=== PATIENT | female | born 1950 | race Caucasian/White ===

== ENCOUNTER 2016-08-29 10:31 | Inpatient (IN) | payer MEDICARE, MEDICAID ==
[~2016-08-29] VITALS: Ht 157.5 cm; Wt 73.7 kg
[2016-08-29] MEDS: BETAMETHASONE DIP 0.05% OINT 15 GM TOP SCH ×2 (09:00→20:42)
[~2016-08-29 10:31] MED LIST: /CIPR75TA OR; /ESOM40CA OR; /THIA10TA OR; /WARF25TA; ACET65TA; EFFE75CA75 PO; FOLI1TAB OR; MAGN500T2 OR; NEUR300C OR; NICO21DI4; NICO21DI4 TD; No Historical Meds; PERC5TAB8; PERC7.5T8 OR; VIT D 2000 PO; WARF-20 PO
[2016-08-29 11:23] LABS: BASO % 0.4 % (0.0-1.0); EOS # 0.1 K/mm3 (0.0-0.50); EOS % 1.4 % (0.0-3.0); LARGE UNSTAINED CELL # 0.1 K/mm3 (0.0-0.4); LARGE UNSTAINED CELL % 1.4 % (0.0-4.0); LYMPH # 0.9 K/mm3 (1.5-4.5); LYMPH % 16.5 % (24.0-44.0); MEAN CORPUSCULAR HEMOGLOBIN 34.2 pg (27.0-33.0); MEAN CORPUSCULAR HGB CONC 34.3 g/dl (32.0-36.5); MEAN CORPUSCULAR VOLUME 99.7 fl (80.0-96.0); MONO # 0.4 K/mm3 (0.0-0.8); MONO % 6.3 % (0.0-5.0); NEUTROPHILS # 4.2 K/mm3 (1.8-7.7); NEUTROPHILS % 73.9 % (36.0-66.0); PLATELET COUNT, AUTOMATED 305 k/mm3 (150-450); RED CELL DISTRIBUTION WIDTH 15.6 % (11.5-14.5); WHITE BLOOD COUNT 5.7 K/mm3 (4.0-10.0)
--- NOTE | 2016-08-29 11:23 | REP ---
Clinical: Acute cough . Comparison: 08/23/2015 . Technique: PA and lateral. Findings: The mediastinum and cardiac silhouette are normal. The lung lanier demonstrate chronic changes without acute consolidation, effusion, or pneumothorax. Subtle basilar atelectasis cannot be excluded. The skeletal structures are intact and normal. Impression: No focal consolidation. Subtle basilar atelectasis cannot be excluded. Signed by Carlos Hendricks MD 08/29/2016 11:14 A
[2016-08-29 11:42] LABS: INR 1.09
[2016-08-29 11:54] LABS: ALBUMIN 2.5 GM/DL (3.2-5.2); ALBUMIN/GLOBULIN RATIO 0.64 (1.00-1.93); ALKALINE PHOSPHATASE 190 U/L (45-117); ALT/SGPT 12 U/L (12-78); ANION GAP 7 MEQ/L (8-16); AST/SGOT 15 U/L (15-37); BILIRUBIN,DIRECT 0.4 MG/DL (0.0-0.2); BLOOD UREA NITROGEN 4 MG/DL (7-18); CALCIUM LEVEL 8.2 MG/DL (8.8-10.2); CARBON DIOXIDE LEVEL 32 MEQ/L (21-32); CHLORIDE LEVEL 100 MEQ/L (98-107); CREATININE FOR GFR 0.61 MG/DL (0.55-1.02); GLOMERULAR FILTRATION RATE > 60.0 (>45); GLUCOSE, FASTING 94 MG/DL (80-110); POTASSIUM SERUM 3.6 MEQ/L (3.5-5.1); SODIUM LEVEL 139 MEQ/L (136-145); TOTAL PROTEIN 6.4 GM/DL (6.4-8.2)
--- NOTE | 2016-08-29 12:01 | REP ---
Clinical: Pain and swelling with erythema bilaterally. Technique: Muniz scale and color Doppler evaluation using linear high frequency transducer. Findings: Ultrasound examination of the right and left lower extremity deep venous structures from the common femoral vein to the popliteal vein demonstrates normal compressibility flow and wave patterns in response to respiration and augmentation. There is no evidence for deep venous thrombosis. Diffuse subcutaneous edema noted. Impression: Edema. No evidence for deep venous thrombosis. Signed by Carlos Hendricks MD 08/29/2016 11:53 A
[2016-08-29 12:07] LABS: ERYTHROCYTE SEDIMENTATION RATE 17 mm/hr (0-30)
[2016-08-29] MEDS ORDERED: ONDANSETRON 4MG/2ML VIAL (J2405) As Ordered ONE (12:52)
[2016-08-29] MEDS ORDERED: MORPHINE 2 MG/ML 1ML SYRINGE As Ordered ONE ×2 (12:53→14:17)
--- NOTE | 2016-08-29 13:02 | ECGEPIP ---
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
[2016-08-29] MEDS ORDERED: TYLE1TAB5 PO (13:44)
[2016-08-29] MEDS ORDERED: EUCERIN 120GM CREAM TOP PRN (13:45)
[2016-08-29] MEDS ORDERED: PERCOCET 5MG/325MG TAB As Ordered ONE (14:17)
[2016-08-29] MEDS ORDERED: hydroCHLOROthiazide 25 MG TAB As Ordered ONE (14:17)
[2016-08-29] MEDS ORDERED: amLODIPine 5 MG TAB As Ordered ONE (14:17)
[2016-08-29] MEDS ORDERED: VANCOMYCIN 1000 MG/20 ML VIAL (J3370) As Ordered ONE (14:17)
[2016-08-29] MEDS ORDERED: NITROGLYCERIN 0.4 MG SUBL TABLET SL PRN (15:15)
--- NOTE | 2016-08-29 15:17 | EDDOCDS ---
Physician Documentation [facility] Name: Renu Yan Age: 66 yrs Sex: Female : 1950 Arrival Date: 08/29/2016 Time: 10:31 Bed 14 Private MD: Disposition: 08/29/16 13:33 Hospitalization ordered by Vianey Swann for Inpatient Admission. Preliminary diagnosis is Cellulitis of right lower limb - associated with chronic changes - hyperkeratosis. - Bed requested for 4 [place]. - Status is Inpatient Admission. jo3 - Condition is Stable. - Problem is new. - Symptoms are unchanged. Historical: - Allergies: PENICILLINS; Aspirin; Iron CR; - Home Meds: 1. none - PMHx: Hypercholesterolemia; Hypertension; DVT; - PSHx: ; Hip Arthroplasty, Left; Hysterectomy; - Social history: Smoking status: Patient uses tobacco products, light tobacco smoker. No barriers to communication noted, The patient speaks fluent Venezuelan, Speaks appropriately for age. - Family history: Not pertinent. - : The pt / caregiver states he / she is not on anticoagulants. Home medication list is obtained from the patient. - Exposure Risk Screening:: None identified. Vital Signs: 08/29 10:53 BP 168 / 75 (auto/); Pulse 68; Resp 16; Temp 97.8(O); Pulse Ox 97% ; jo3 11:23 BP 199 / 94 (auto/); jo3 11:23 Pulse 126 MON; Pulse Ox 95% ; jo3 11:53 BP 186 / 88 (auto/); jo3 11:53 Pulse 100 MON; Pulse Ox 97% ; jo3 12:23 BP 164 / 75 (auto/); jo3 12:23 Pulse 86 MON; Pulse Ox 96% ; jo3 12:53 BP 180 / 79 (auto/); jo3 12:53 Pulse 100 MON; Pulse Ox 97% ; jo3 13:15 Pain 4/10; jo3 13:23 BP 155 / 73 (auto/); jo3 13:23 Pulse 94 MON; Pulse Ox 99% ; jo3 15:00 BP 158 / 89; Pulse 82; Resp 16; Temp 97.9(TE); Pulse Ox 96% on R/A; jo3 MDM: 10:45 -Blood Culture (Adults Only), peripheral from different site, or from device/port/PICC sd1 etc. if present ordered. 10:45 Passenger Car Upholsterer Apprentice/Pulse Ox/q 15 min VS ordered. sd1 10:45 IV Saline Lock ordered. sd1 10:45 Oxygen at 4L/Min NC or Home dosage ordered. sd1 10:45 Rhythm Strip to chart ordered. sd1 10:45 B-Type Natiuretic Peptide Ordered. EDMS 10:45 Basic Metabolic Profile Ordered. EDMS 10:45 CBC with Diff Ordered. EDMS 10:45 -Blood Culture Ordered. EDMS 10:46 Chest, 2 View (pa\E\lat) Ordered. EDMS 10:46 ECG WITH READING ER PHYS+CARDIAG ordered. EDMS 10:47 Lactic Acid (Muniz tube on ice) Ordered. EDMS 10:47 PT/INR Ordered. EDMS 10:47 US Lower Extremities Bilateral R/O DVT Ordered. EDMS 10:54 LIVER PROFILE Ordered. EDMS 10:58 -Blood Culture (Adults Only), peripheral from different site, or from device/port/PICC lbd etc. if present complete. 11:00 BLOOD CULTURES Ordered. EDMS 11:10 ERYTHROCYTE SEDIMENTATION RATE Ordered. EDMS 11:10 C REACTIVE PROTEIN QUANTITATIV Ordered. EDMS 11:20 Financial registration complete. mm15 11:32 CBC with Diff Reviewed. sd1 11:34 [facility] Payment Agreement was scanned into Roamer and attached to record. mm15 11:43 PT/INR Reviewed. sd1 12:19 Basic Metabolic Profile Reviewed. sd1 12:19 CBC with Diff Reviewed. sd1 12:19 LIVER PROFILE Reviewed. sd1 12:19 C REACTIVE PROTEIN QUANTITATIV Reviewed. sd1 12:19 Lactic Acid (Muniz tube on ice) Reviewed. sd1 12:19 ERYTHROCYTE SEDIMENTATION RATE Reviewed. sd1 12:19 Chest, 2 View (pa\E\lat) Reviewed. sd1 12:19 US Lower Extremities Bilateral R/O DVT Reviewed. sd1 12:20 Misc. Nursing Order ordered. sd1 12:58 Ondansetron 4 mg IVP once ordered. jo3 12:59 morphine 2 mg IVP once ordered. jo3 13:35 Admission / Observation Status ordered. EDMS 13:36 2 GRAM SODIUM DIET ordered. EDMS 13:37 MRSA SCREEN Ordered. EDMS 13:38 PHYSICAL THERAPY EVAL & TREAT ordered. EDMS 13:40 PCR was scanned into Roamer and attached to record. gb 13:47 Written Provider Order was scanned into [facility] and attached to record. lbd 14:03 Written Provider Order was scanned into [facility] and attached to record. lbd 14:10 vancomycin 1 grams IVPB once over 60 mins; dilute in 250mL of NS or D5W ordered. jo3 14:10 morphine 2 mg IVP once ordered. jo3 14:10 oxyCODONE-acetaminophen 5 mg-325 mg 1 tabs PO once ordered. jo3 14:10 Hydrochlorothiazide 25 mg PO once ordered. jo3 14:10 amLODIPine 2.5 mg PO once ordered. jo3 15:01 CARDIAC MARKER PANEL Ordered. EDMS 15:02 ECHOCARD,DOPPLER/COLOR FLOW ordered. EDMS Administered Medications: 12:59 Drug: Ondansetron 4 mg [ondansetron HCl 2 mg/mL intravenous solution (2 mL)] Route: jo3 IVP; Site: left antecubital; 12:59 Drug: morphine 2 mg [morphine 2 mg/mL intravenous cartridge (1 mL)] Route: IVP; Site: jo3 left antecubital; 13:15 Follow up: Pain 4/10 Adult jo3 14:30 Drug: oxyCODONE-acetaminophen 1 tabs [oxycodone-acetaminophen 5 mg-325 mg tablet (1 jo3 tabs)] Route: PO; 14:30 Drug: Hydrochlorothiazide 25 mg [hydrochlorothiazide 25 mg tablet (1 tabs)] Route: PO; jo3 14:30 Drug: amLODIPine 2.5 mg Route: PO; jo3 14:32 Drug: morphine 2 mg [morphine 2 mg/mL intravenous cartridge (1 mL)] Route: IVP; Site: jo3 left antecubital; 14:34 Drug: vancomycin 1 grams [vancomycin 1,000 mg intravenous injection] Route: IVPB; jo3 Infused Over: 60 mins; Site: left antecubital; Signatures: Dispatcher MedHost EDMS Mya Morrell MD MD sd1 Kaitlin Ward, Bunker Worker Unit lbd Jo-Ann Ledezma, Reg Reg gb Roxanne Miguel RN RN jo3 Nevaeh Hubbard mm15 The chart was reviewed and I authenticate all verbal orders and agree with the evaluation and treatment provided.Corrections: (The following items were deleted from the chart) 10:54 10:47 LIVER PROFILE+LAB ordered. EDMS EDMS 11:10 10:47 ERYTHROCYTE SEDIMENTATION RATE+LAB ordered. EDMS EDMS 11:10 10:47 C REACTIVE PROTEIN QUANTITATIV+LAB ordered. EDMS EDMS 13:37 13:37 BASIC METABOLIC PROFILE ordered. EDMS EDMS 13:37 13:37 BASIC METABOLIC PROFILE ordered. EDMS EDMS 13:37 13:37 C REACTIVE PROTEIN QUANTITATIV ordered. EDMS EDMS 13:37 13:37 C REACTIVE PROTEIN QUANTITATIV ordered. EDMS EDMS 13:37 13:37 CBC WITH DIFFERENTIAL ordered. EDMS EDMS 13:37 13:37 CBC WITH DIFFERENTIAL ordered. EDMS EDMS 13:37 13:37 ERYTHROCYTE SEDIMENTATION RATE ordered. EDMS EDMS 13:37 13:37 ERYTHROCYTE SEDIMENTATION RATE ordered. EDMS EDMS 15:14 15:01 CARDIAC MARKER PANEL ordered. EDMS EDMS Attachments: 11:34 [facility] Payment Agreement mm15 13:47 Written Provider Order lbd 14:03 Written Provider Order lbd MTDD
--- NOTE | 2016-08-29 15:17 | EDDOCDS ---
Nurse's Notes [facility] Name: Justino Watt Age: 66 yrs Sex: Female : 1950 Arrival Date: 08/29/2016 Time: 10:31 Bed 14 Private MD: Diagnosis: Cellulitis of right lower limb-associated with chronic changes - hyperkeratosis Presentation: 08/29 10:35 Presenting complaint: EMS states: Leg pain x 3 weeks. Multiple ulcers to left leg and jo3 foot and right foot. Also reports some sciatica type pain. 10:36 Suicide/Homicide risk assessment- the patient denies having any suicidal and/or jo3 homicidal ideations and does not present with any other emotional, behavioral or mental health complaints. Status: Patient is not a manager creative services or dependent. Transition of care: patient was not received from another setting of care. 10:36 Method Of Arrival: Ambulance jo3 11:08 Adult Sepsis Screening: The patient does not have new or worsening altered mentation. jo3 Patient's respiratory rate is less than 22. Systolic blood pressure is less than or equal to 100 (1 point). Patient has a qSOFA score of 0- Negative Sepsis Screen. 11:08 Acuity: JOSEPH Level 3 jo3 Triage Assessment: 11:13 General: Appears in no apparent distress, Behavior is appropriate for age, cooperative. jo3 Respiratory: Airway is patent Respiratory effort is even, unlabored. Historical: - Allergies: PENICILLINS; Aspirin; Iron CR; - Home Meds: 1. none - PMHx: Hypercholesterolemia; Hypertension; DVT; - PSHx: ; Hip Arthroplasty, Left; Hysterectomy; - Social history: Smoking status: Patient uses tobacco products, light tobacco smoker. No barriers to communication noted, The patient speaks fluent French, Speaks appropriately for age. - Family history: Not pertinent. - : The pt / caregiver states he / she is not on anticoagulants. Home medication list is obtained from the patient. - Exposure Risk Screening:: None identified. Screenin:17 Screening information is obtained from the patient. Fall risk: No risks identified. jo3 Assistance ADL's: requires no assistance with activities of daily living. Abuse/DV Screen: The patient / caregiver reports he/she is: not in a situation that causes fear, pain or injury. Nutritional screening: No deficits noted. Advance Directives: There is no active DNR order. home support is adequate. Assessment: 11:17 General: Appears in no apparent distress, comfortable, Behavior is appropriate for age, jo3 cooperative, pleasant. General: Pt has thick brown growth which is circumferential to left lower leg. Smell noted as musty. Lower right leg has patchy rash which looks similar in places to left lower leg. skin is reddened at right lower leg . Neurological: No deficits noted. Level of Consciousness is awake, alert, Oriented to person, place, time. Cardiovascular: No deficits noted. Respiratory: Airway is patent Respiratory effort is even, unlabored. Derm: Skin is pink, warm & dry. 12:20 Reassessment: Patient appears in no apparent distress at this time. Pt reports some jo3 pain to back. Positioned for comfort. will report to provider . 13:00 Reassessment: Patient appears in no apparent distress at this time. Medicated for pain jo3 at this time. Awaiting admission to medical floor. Aware of plan of care. Will monitor for medication effectiveness . 13:49 Reassessment: Patient states feeling better. Patient states symptoms have improved. jo3 Reports that pain is much improved at this time. Resting on stretcher quietly. awaiting admission at this time. Aware of plan of care . General: Appears in no apparent distress, comfortable, Behavior is appropriate for age, cooperative, pleasant. 14:45 General: Appears in no apparent distress, comfortable, Behavior is appropriate for age, jo3 cooperative, pleasant. General: Awaiting admission to medical floor. Eating lunch at this time. medicated for pain again at this tabitha. will monitor for effectiveness. Neurological: No deficits noted. Respiratory: Airway is patent Respiratory effort is even, unlabored. 15:13 Reassessment: Patient appears in no apparent distress at this time. Patient states jo3 feeling better. Patient states symptoms have improved. Admitted at this time . Vital Signs: 10:53 BP 168 / 75 (auto/); Pulse 68; Resp 16; Temp 97.8(O); Pulse Ox 97% ; jo3 11:23 BP 199 / 94 (auto/); jo3 11:23 Pulse 126 MON; Pulse Ox 95% ; jo3 11:53 BP 186 / 88 (auto/); jo3 11:53 Pulse 100 MON; Pulse Ox 97% ; jo3 12:23 BP 164 / 75 (auto/); jo3 12:23 Pulse 86 MON; Pulse Ox 96% ; jo3 12:53 BP 180 / 79 (auto/); jo3 12:53 Pulse 100 MON; Pulse Ox 97% ; jo3 13:15 Pain 4/10; jo3 13:23 BP 155 / 73 (auto/); jo3 13:23 Pulse 94 MON; Pulse Ox 99% ; jo3 15:00 BP 158 / 89; Pulse 82; Resp 16; Temp 97.9(TE); Pulse Ox 96% on R/A; jo3 Vitals: 11:13 Log In Time N/A - ambulance arrival. jo3 ED Course: 10:32 Patient visited by Kaitlin Ward, Senior Marketing Engineer. lbd 10:32 Patient moved to Waiting lbd 10:33 Patient moved to 14 lbd 10:36 Mya Morrell MD is Attending Physician. sd1 10:36 Patient visited by Mya Morrell MD. sd1 11:09 Triage Initiated jo3 11:13 Patient moved to Ultrasound am10 11:17 The patient / caregiver is instructed regarding the plan of care and ED course. jo3 11:17 Inserted saline lock: 18 gauge in left antecubital area. Labs drawn. (by ED staff). jo3 Sent per order to lab. Labs/Blood culture drawn. 11:20 Patient visited by Roxanne Miguel RN. jo3 11:20 Patient visited by Roxanne Miguel,SAFIA. jo3 11:20 B-Type Natiuretic Peptide Sent. jo3 11:34 [facility] Payment Agreement was scanned into Pley and attached to record. mm15 11:50 Patient moved to 14 am10 12:10 Chest, 2 View (pa\\E\\lat) Returned. EDMS 12:11 US Lower Extremities Bilateral R/O DVT Returned. EDMS 12:27 Patient visited by Roxanne Miguel,SAFIA. jo3 12:31 Patient name changed from Justino\\S\\M\\S\\Watt\\S\\ to Justino\\S\\Rissa\\S\\Watt. EDMS 12:39 Patient visited by Nathalie Talbert PCA. jlf 12:39 Notified attending ED physician of ambulated pt with walker, patient took a few steps jlf and stated "it hurts too much" and returned to the stretcher. Patient stating "her legs hurt", and asking for pain meds. RN Negrita Miguel notified as well.. 12:41 Patient visited by Nathalie Talbert PCA. jlf 13:33 Vianey Swann is Hospitalizing Provider. sd1 13:40 PCR was scanned into MED[employer] and attached to record. gb 13:43 EKG-ADULT Returned. EDMS 13:47 Written Provider Order was scanned into MEDHOST and attached to record. lbd 13:53 Patient visited by Roxanne Miguel RN. jo3 14:03 Written Provider Order was scanned into [employer] and attached to record. lbd 15:00 No procedures done that require assistance. jo3 Administered Medications: 12:59 Drug: Ondansetron 4 mg [ondansetron HCl 2 mg/mL intravenous solution (2 mL)] Route: jo3 IVP; Site: left antecubital; 12:59 Drug: morphine 2 mg [morphine 2 mg/mL intravenous cartridge (1 mL)] Route: IVP; Site: jo3 left antecubital; 13:15 Follow up: Pain 4/10 Adult jo3 14:30 Drug: oxyCODONE-acetaminophen 1 tabs [oxycodone-acetaminophen 5 mg-325 mg tablet (1 jo3 tabs)] Route: PO; 14:30 Drug: Hydrochlorothiazide 25 mg [hydrochlorothiazide 25 mg tablet (1 tabs)] Route: PO; jo3 14:30 Drug: amLODIPine 2.5 mg Route: PO; jo3 14:32 Drug: morphine 2 mg [morphine 2 mg/mL intravenous cartridge (1 mL)] Route: IVP; Site: jo3 left antecubital; 14:34 Drug: vancomycin 1 grams [vancomycin 1,000 mg intravenous injection] Route: IVPB; jo3 Infused Over: 60 mins; Site: left antecubital; Order Results: Lab Order: B-Type Natiuretic Peptide; SPEC'M 08/29/16 11:01 Test: BRAIN NATRIURETIC PEPTIDE; Value: 56.2; Range: <100; Units: PG/ML; Status: F Lab Order: Basic Metabolic Profile; SPEC'M 08/29/16 11:01 Test: GLUCOSE, FASTING; Value: 94; Range: 80-110; Units: MG/DL; Status: F Test: BLOOD UREA NITROGEN; Value: 4; Range: 7-18; Abnormal: Below low normal; Units: MG/DL; Status: F Test: CREATININE FOR GFR; Value: 0.61; Range: 0.55-1.02; Units: MG/DL; Status: F Test: GLOMERULAR FILTRATION RATE; Value: > 60.0; Range: >45; Status: F Test: SODIUM LEVEL; Value: 139; Range: 136-145; Units: MEQ/L; Status: F Test: POTASSIUM SERUM; Value: 3.6; Range: 3.5-5.1; Units: MEQ/L; Status: F Test: CHLORIDE LEVEL; Value: 100; Range: 98-107; Units: MEQ/L; Status: F Test: CARBON DIOXIDE LEVEL; Value: 32; Range: 21-32; Units: MEQ/L; Status: F Test: ANION GAP; Value: 7; Range: 8-16; Abnormal: Below low normal; Units: MEQ/L; Status: F Test: CALCIUM LEVEL; Value: 8.2; Range: 8.8-10.2; Abnormal: Below low normal; Units: MG/DL; Status: F Test Note: ; Units are mL/min/1.73 m2 Chronic Kidney Disease Staging per NKF: Stage I & II GFR >=60 Normal to Mildly Decreased Stage III GFR 30-59 Moderately Decreased Stage IV GFR 15-29 Severely Decreased Stage V GFR <15 Very Little GFR Left ESRD GFR <15 on [facility] NAPRAPATHY Lab Order: CBC with Diff; SPEC'M 08/29/16 11:01 Test: WHITE BLOOD COUNT; Value: 5.7; Range: 4.0-10.0; Units: K/mm3; Status: F Test: RED BLOOD COUNT; Value: 3.73; Range: 4.00-5.40; Abnormal: Below low normal; Units: M/mm3; Status: F Test: HEMOGLOBIN; Value: 12.8; Range: 12.0-16.0; Units: g/dl; Status: F Test: HEMATOCRIT; Value: 37.2; Range: 36.0-47.0; Units: %; Status: F Test: MEAN CORPUSCULAR VOLUME; Value: 99.7; Range: 80.0-96.0; Abnormal: Above high normal; Units: fl; Status: F Test: MEAN CORPUSCULAR HEMOGLOBIN; Value: 34.2; Range: 27.0-33.0; Abnormal: Above high normal; Units: pg; Status: F Test: MEAN CORPUSCULAR HGB CONC; Value: 34.3; Range: 32.0-36.5; Units: g/dl; Status: F Test: RED CELL DISTRIBUTION WIDTH; Value: 15.6; Range: 11.5-14.5; Abnormal: Above high normal; Units: %; Status: F Test: PLATELET COUNT, AUTOMATED; Value: 305; Range: 150-450; Units: k/mm3; Status: F Test: NEUTROPHILS %; Value: 73.9; Range: 36.0-66.0; Abnormal: Above high normal; Units: %; Status: F Test: LYMPH %; Value: 16.5; Range: 24.0-44.0; Abnormal: Below low normal; Units: %; Status: F Test: MONO %; Value: 6.3; Range: 0.0-5.0; Abnormal: Above high normal; Units: %; Status: F Test: EOS %; Value: 1.4; Range: 0.0-3.0; Units: %; Status: F Test: BASO %; Value: 0.4; Range: 0.0-1.0; Units: %; Status: F Test: LARGE UNSTAINED CELL %; Value: 1.4; Range: 0.0-4.0; Units: %; Status: F Test: NEUTROPHILS #; Value: 4.2; Range: 1.8-7.7; Units: K/mm3; Status: F Test: LYMPH #; Value: 0.9; Range: 1.5-4.5; Abnormal: Below low normal; Units: K/mm3; Status: F Test: MONO #; Value: 0.4; Range: 0.0-0.8; Units: K/mm3; Status: F Test: EOS #; Value: 0.1; Range: 0.0-0.50; Units: K/mm3; Status: F Test: BASO #; Value: 0.0; Range: 0.0-0.2; Units: K/mm3; Status: F Test: LARGE UNSTAINED CELL #; Value: 0.1; Range: 0.0-0.4; Units: K/mm3; Status: F Lab Order: Lactic Acid (Muniz tube on ice); SPEC'M 08/29/16 11:01 Test: LACTIC ACID LEVEL, LACTATE; Value: 1.4; Range: 0.4-2.0; Units: MMOL/L; Status: F Lab Order: PT/INR; SPEC'M 08/29/16 11:01 Test: PROTHROMBIN TIME; Value: 14.2; Range: 12.3-14.5; Units: SECONDS; Status: F Test: INR; Value: 1.09; Status: F Test Note: ; THERAPUTIC HUMAN INR VALUES INDICATIONS NORMAL RANGES PROPHYLAXIS/TREATMENT OF: VENOUS THROMBOSIS 2.0-3.0 PULMONARY EMBOLISM 2.0-3.0 PREVENTION OF SYSTEMIC EMBOLISM FROM: TISSUE HEART VALVES 2.0-3.0 ACUTE MYOCARDIAL INFARCTION 2.0-3.0 VALVULAR HEART DISEASE 2.0-3.0 ATRIAL FIBRILLATION 2.0-3.0 MECHANICAL VALVES(HIGH RISK) 2.5-3.5 RECURRENT MYOCARDIAL INFARCTION 2.5-3.5 Lab Order: LIVER PROFILE; SPEC'M 08/29/16 11:01 Test: AST/SGOT; Value: 15; Range: 15-37; Units: U/L; Status: F Test: ALT/SGPT; Value: 12; Range: 12-78; Units: U/L; Status: F Test: ALKALINE PHOSPHATASE; Value: 190; Range: 45-117; Abnormal: Above high normal; Units: U/L; Status: F Test: BILIRUBIN,TOTAL; Value: 1.0; Range: 0.2-1.0; Units: MG/DL; Status: F Test: BILIRUBIN,DIRECT; Value: 0.4; Range: 0.0-0.2; Abnormal: Above high normal; Units: MG/DL; Status: F Test: TOTAL PROTEIN; Value: 6.4; Range: 6.4-8.2; Units: GM/DL; Status: F Test: ALBUMIN; Value: 2.5; Range: 3.2-5.2; Abnormal: Below low normal; Units: GM/DL; Status: F Test: ALBUMIN/GLOBULIN RATIO; Value: 0.64; Range: 1.00-1.93; Abnormal: Below low normal; Status: F Lab Order: ERYTHROCYTE SEDIMENTATION RATE; SPEC'M 08/29/16 11:01 Test: ERYTHROCYTE SEDIMENTATION RATE; Value: 17; Range: 0-30; Units: mm/hr; Status: F Lab Order: C REACTIVE PROTEIN QUANTITATIV; SPEC'M 08/29/16 11:01 Test: C REACTIVE PROTEIN QUANTITATIV; Value: 0.78; Range: 0.00-0.30; Abnormal: Above high normal; Units: MG/DL; Status: F Lab Order: CARDIAC MARKER PANEL; SPEC'M 08/29/16 11:01 Test: CPK CREATINE PHOSPHOKINASE; Range: 26-192; Units: U/L; Status: I Test: CK-MB VALUE MASS; Range: 0.0-3.6; Units: NG/ML; Status: I Test: MB/CK RELATIVE INDEX; Range: < OR =4; Status: I Test: TROPONIN I; Range: < 0.10; Units: NG/ML; Status: I Radiology Order: Chest, 2 View (pa\\E\\lat) Test: Chest, 2 View (pa\\E\\lat) REASON FOR EXAMINATION: Cough; Clinical: Acute cough .; ; Comparison: 08/23/2015 .; ; Technique: PA and lateral.; ; Findings:; The mediastinum and cardiac silhouette are normal. The lung lanier demonstrate; chronic changes without acute consolidation, effusion, or pneumothorax. Subtle; basilar atelectasis cannot be excluded. The skeletal structures are intact and; normal.; ; Impression:; No focal consolidation. 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; : 1950 Requested By: Mya Morrell; Order Number: [id number] Kevin MD: Chip Anders; Measurements; Intervals [place]; Rate: 96 P: 65; [place]: 151 QRS: 48; QRSD: 82 T: 60; QT: 340; QTc: 430; Interpretive Statements; SINUS RHYTHM; ; ; Electronically Signed On 08-29-2016 13:02:40 EST by Chip Anders; Radiology Order: US Lower Extremities Bilateral R/O DVT Test: US Lower Extremities Bilateral R/O DVT REASON FOR EXAMINATION: swelling/redness ; Clinical: Pain and swelling with erythema bilaterally.; ; Technique: Muniz scale and color Doppler evaluation using linear high frequency; transducer.; ; Findings:; Ultrasound examination of the right and left lower extremity deep venous; structures from the common femoral vein to the popliteal vein demonstrates normal; compressibility flow and wave patterns in response to respiration and; augmentation. There is no evidence for deep venous thrombosis. Diffuse; subcutaneous edema noted.; ; Impression:; Edema. No evidence for deep venous thrombosis.; ; ; Signed by; Carlos Hendricks MD 08/29/2016 11:53 A; Outcome: 13:33 Decision to Hospitalize by Provider. sd1 14:57 Admission hand-off: Report Faxed Fax receipt verified by [email or web address]. [email or web address] 15:00 Discharge Assessment: Patient awake, alert and oriented x 3. No cognitive and/or jo3 functional deficits noted. Patient verbalized understanding of disposition instructions. patient administered narcotics - yes. Patient was admitted to the hospital or transferred to another facility. The following High Risk Discharge criteria are identified: None. Admitted to Med/Surg accompanied by tech, via stretcher, with chart. Condition: stable. Ultrasound Study completed. Property :Personal belongings accompany Pt. 15:16 Patient left the ED. jo3 Signatures: Dispatcher MedHost EDMS Mya Morrell MD MD sd1 Kaitlin Ward, Senior Marketing Engineer Unit lbd Jo-Ann Ledezma, Reg Reg Roxanne Velez,SAFIA RN [email or web address] Jennifer Tyson am10 Roxanne Bass, SAFIA RN [email or web address] Nevaeh Hubbard mm15 Nathalie Talbert, STOCK CRANE OPERATOR STOCK CRANE OPERATOR jlf MTDD
[2016-08-29 15:25] VITALS: BP 141/82
--- NOTE | 2016-08-29 16:21 | HPE ---
DATE OF ADMISSION: 08/29/2016 PRIMARY CARE PHYSICIAN: Dr. Hernández INPATIENT HOSPITALIST ATTENDING: Dr. Quan Diallo CHIEF COMPLAINT: Right leg swelling, pain, and redness. HISTORY OF PRESENT ILLNESS: 66-year-old female with history of hypercholesterolemia and hypertension, prior deep vein thrombosis in left lower extremity treated with anticoagulation in 2013 with Warfarin for two years. It has since been discontinued, psoriasis which has not been treated, presents to the emergency room with complaints of bilateral lower extremity edema and plaque psoriatic lesions since June 2016, extremely pruritic which the patient has been treating with Curel lotion. No floral artist or primary care physician has been treating her psoriasis. She now presents with worsening three week history of increasing right lower extremity pain, redness, unable to walk. Describes the pain as stabbing pain. The patient has developed erythema prompting her to limit her ambulation prior to June 2016. Patient is able to walk with a walker about 500 feet without limitations of her ambulation. For the past three weeks she has been unable to walk about 10 to 20 feet without severe stabbing pain without radiation bilateral feet and lower extremity with increasing erythema, redness and swelling of the right lower extremity more than the left. In the emergency room she was found to have moderate plaque psoriasis in the left lower extremity which was malodorous. Right lower extremity is warm , erythematous and painful to touch with significant edema. Hospitalist service was called for admission for right lower extremity cellulitis. At home patient had been taking Tylenol as needed at night to allow her to sleep secondary to severe pain. She has chronic back pain without radiation to lower extremities and has previously been seen at the orthopedic group in [place] in June due to transportation difficulties patient was unable to follow up at [facility] for her back. She denies any urine or bowel incontinence, radicular pain. She states that most of the pain starts when she ambulates and her swollen lower extremities. She also complains of a chronic cough, has recently relapsed with her smoking, previously smoked a pack a day for several decades, quit three years ago, recently started smoking about two months a half-a-pack a day due to her severe pain in her lower extremity to decrease her anxiety. Chest x-ray in the emergency room was negative for acute infectious process or pulmonary edema. She denies any fever or chills at home, sinus congestion, decreased appetite, weight gain or weight loss. She denies chest pain, pressure or tightness. Has a chronic cough. No diaphoresis, palpitations, lightheadedness , nausea, vomiting, abdominal pain, diarrhea, constipation. Denies any prior history of cerebrovascular accident (CVA), myocardial infarction (SD), diabetes. Has chronic history of hypertension, prior deep vein thrombosis and hypercholesterolemia for which she takes no medications. No changes in vision. No other complaints. Otherwise review of systems is negative. PAST MEDICAL HISTORY: Hypertension. Hypercholesterolemia. Prior deep vein thrombosis times two in 2013 treated for two years with warfarin. ALLERGIES: PENICILLIN causing hives. ASPIRIN hives. IRON causing flu-like symptoms. HOME MEDICATIONS: Tylenol as needed for pain. PAST SURGICAL HISTORY Casaeren section. Hip arthroplasty on the left. Hysterectomy. SOCIAL HISTORY: Smoked y-ecio-x-day for several decades. Quit three years ago. Resumed fmos-i-ccrx-a-day for two months due to severe pain to decrease her anxiety. Social alcohol use. 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 Lives along. Walks with walker. Usually walks 500 feet. Currently unable to walk 10 to 20 feet without severe pain in the lower extremities, described as burning, stabbing pain without any radiation. FAMILY HISTORY: Mother decreased age 68 with cerebrovascular accident (CVA). Father decreased at age 71 pancreatic cancer. REVIEW OF SYSTEMS: 24-axvi-tqkgqh negative aside from positive findings in history of present illness. PHYSICAL EXAMINATION: Blood pressure 168/75, pulse 68, respiratory 16, temperature 97.8, 97% pulse ox. No weight recorded. GENERAL: Patient appears older than her stated age. Pupils are round, reactive to light and accommodation. Extraocular muscles are intact. Normocephalic, atraumatic. Poor dentition. Dry mucous membranes. NECK: Supple. Full range of motion. No cervical lymphadenopathy, thyromegaly. No carotid bruits. LUNGS: Diminished breath sounds. Prolonged expiration. Faint expiratory wheezing. HEART: S1, S2, sinus rhythm. No murmurs, rubs or gallops. ABDOMEN: Soft, non-tender, non-distended, positive bowel sounds. EXTREMITIES: Patient has malodorous left and right lower extremities with plaque-like psoriasis on the left lower extremity more so than the right. Right lower extremity has 3+ pitting edema with significant erythema. Tender to touch and warm to touch. Thick round plaque-like lesions are noted that circumferential to the left lower extremity. Right lower extremity also has a psoriatic scaly patch similar to left lower extremity but with erythema around, very red warm and tender to touch. LABORATORY DATA: White count 5.7, hemoglobin 12, hematocrit 37, platelet count of 305, 74% neutrophils. Lactic acid 1.4, sodium 139, potassium 3.6, chloride 100, bicarbonate 32, BUN 4, creatine 0.6, glucose 94. Lactic acid 1.4, INR 1.09. Liver profile: Total protein 6.4, T-bili 1, direct bilirubin 0.4, alkaline phosphatase 190, AC 50, ALT 12, sed rate 17, CRP 0.78. IMAGING: Chest x-ray no focal consolidations. Subtle basal atelectasis cannot be excluded. Ultrasound of the lower extremity bilaterally no deep vein thrombosis noted. Significant edema. ASSESSMENT AND PLAN" This is a 66-year-old female with history of hypercholesterolemia, hypertension, prior deep vein thrombosis 2014 treated fro two years with chronic warfarin, takes no medications currently aside from as needed Tylenol, recent history of psoriasis not treated by primary care physician or floral artist presents to the emergency room with increasing lower extremity patch like lesions which worsened with increasing erythema, redness and edema of the right lower extremity greater than the left, which has worsened for the past three weeks. Patient has been putting lotion on her own at home with no significant improvement. No fever or chills. She describes stabbing burning pain of bilateral feet with no radiation presents with right lower extremity cellulitis and moderately severe psoriatic plaques on the left lower extremity more so than the right lower extremity. Patient will be admitted as an inpatient for two midnights assigned to hospitalist service, Dr. Quan Diallo will assume care of this patient at 7 a.m. on 08/30/2016. CURRENT ISSUES: 1. Right lower extremity cellulitis in the setting of severe psoriatic psoriasis. Patient will be given intravenous vancomycin due to prior history of penicillin and penicillin cross reactor allergies causing severe rash. A t this time pharmacy will be consulted for dosing. There are no open lesions to obtain wound culture. Elevation of the affected lower extremity will be done to decrease risk of recurrent infection. The dry psoriatic plaques will be treated with topical betamethasone and emollients. No floral artist is available to us at [facility] today. We will defer her for outpatient treatment for psoriatic plaques. Patient benefit from tacrolimus ointment, which is not available at this time. We will consult with pharmacy for alternatives. 2. Severe psoriasis bilateral lower extremities with plaque formation that is circumferential in the left lower extremity and psoriatic plaques noted on right lower extremity. Wound care consult. At this time patient will be given betamethasone, tacrolimus ideally and floral artist consultation is not available at this time at [facility]. Will need outpatient referral as the patient will need several weeks to months of treatment. 3. Hypertension. Uncontrolled. Patient has not been placed on any blood pressure medications as outpatient. Systolic pressure is 168 to 170 at the bed side despite being asymptomatic. Patient will be started on hydrochlorothiazide which will help also with patient's lower extremity edema. Repeat metabolic panel in the morning to check for low potassium and baseline creatinine is normal at this time.norvasc bid. kushal diet 4. Neuropathy bilateral lower extremities. At this time patient will be given morphine and as needed Percocet. She may benefit from Lyrica and gabapentin mcfp. Will defer to primary team in the morning to discuss with her the long term acute care registered nurse side effects of these medications. 5. History of deep vein thrombosis with chronic bilateral lower extremity swelling. Patient has adequate pulses. She has no deep vein thrombosis on repeat ultrasound. We will continue to monitor for now. 6. Hypercholesterolemia. Obtain lipid panel in the morning. Treat if needed. 7. Abnormal electrocardiogram with ST depressions. Cycle cardiac markers. Patient has an allergy toaspirin causing rash. We will obtain a 2D echo in light of the abnormal ST depression. Patient has no complaints of chest pain, pressure tightness, sob at thistime. We will continue treatment with high blood pressure and check lipid panels. Start on statins if needed. 8. Active smoking. Tobacco cessation counselling. nicotine patch Deep vein thrombosis prophylaxis with subcutaneous heparin. Patient will be assigned to hospitalist service Dr. Quan Diallo at 10 p.m. on 08/29/2016. He will assume care of this patient on 08/30/2016 at 7 a.m. Patient will be signed out to hospitalist flight control tower operator this evening, Dr. Juliane Cedeno for any acute issues. [facility]
[2016-08-29] MEDS: NICOTINE 7 MG/24 HR TRANSDERMAL TD SCH (16:36)
[2016-08-29] MEDS: EUCERIN 120GM CREAM TOP SCH ×2 (16:36→20:43)
[2016-08-29] MEDS: PERCOCET 5MG/325MG TAB PO PRN ×2 (17:40→22:15)
[2016-08-29] MEDS: MORPHINE 2 MG/ML 1ML SYRINGE IV PRN (20:04)
[2016-08-29] MEDS: amLODIPine 5 MG TAB PO SCH (20:18)
[2016-08-29] MEDS: HEPARIN SOD (PORCINE) 5000 UNITS/ML VIAL SQ SCH (20:42)
[2016-08-29] MEDS: CALCIPOTRIENE CREAM 0.005% 60GM TOP SCH (20:42)
--- NOTE | 2016-08-29 20:43 | PHACANCOPD ---
PHARMACY VANCOMYCIN DOSING Pt Demographics Demographics Patient Age:66 , Weight:71.800 , Gender: female Adjusted Body Weight Date: 08/29/16, Adjusted Body Weight: Kg Events Past 24 Hours Events Past 24 Hours: NO: Change in CrCl, Dialysis, Diuretic Therapy, Elevation in WBC, Fever, Other, Pending Diagnostics, Pending Procedures Vancomycin Vancomycin indication: R LEG CELLULITIS - pcn allergy Vancomycin Target Ranges: 10-20 mcg/ml Vancomycin Load Y/N: Yes Load Dose Date Time Vancomycin Load Dose: 1000mg Date: 08/29 Time: 14:34 (ER) Vancomycin Dose Date: 08/29/16. Current Vancomycin Dose: [1g IV q12h @21] Intermittent Dosing?: No Labs Labs Item Value Date Time White Blood Count 5.7 K/mm3 08/29/16 1101 Creatinine 0.61 MG/DL 08/29/16 1101 Micro Microbiology 08/29/16 Blood Culture, Received Pending 08/29/16 Blood Culture, Received Pending Creatinine Clearance Date:08/29/16. Creatinine Clearance: [78 ml/min]. Pending Labs Vanco trough scheduled 08/31 @08:00 Assessment and Plan Maintaining Current Dose?: Yes Reason for dose change: No Dose Change Pharmacist Note Pharmacist Note Date: 08/29/16. Pharmacist note: pt is being treated for right lower extremity cellulitis secondary to severe psoriatic psoriasis. Pt does not have a relevant culture Hx, no MRSA Hx and has not been on vancomycin at our facility in the past. She received 1g of vancomycin in the ER this afternoon and I have started her q12h dosing 7 hours after the first dose. I have a trough scheduled for Thursday. We will continue to monitor. Varun Camacho Pharm.D. Aug 29, 2016 20:43
[2016-08-29] MEDS ORDERED: VANCOMYCIN HCL 1,000 MG, VIAL MATE ADAPTER 1 EACH in D5W 250 ML IV SCH (21:00)
[2016-08-29 22:00] VITALS: BP 111/59
[2016-08-29] MEDS ORDERED: ACETAMINOPHEN TAB 650MG DOSE (2X325MG) PO ONE (23:45)
[2016-08-30] MEDS: MORPHINE 2 MG/ML 1ML SYRINGE IV PRN ×2 (01:05→06:17)
[2016-08-30] MEDS: PERCOCET 5MG/325MG TAB PO PRN (03:33)
[2016-08-30 06:00] VITALS: BP 151/60
[2016-08-30 06:30] LABS: BASO % 0.4 % (0.0-1.0); EOS # 0.2 K/mm3 (0.0-0.50); EOS % 2.3 % (0.0-3.0); LARGE UNSTAINED CELL # 0.2 K/mm3 (0.0-0.4); LARGE UNSTAINED CELL % 2.1 % (0.0-4.0); LYMPH # 2.2 K/mm3 (1.5-4.5); LYMPH % 28.7 % (24.0-44.0); MEAN CORPUSCULAR HEMOGLOBIN 33.5 pg (27.0-33.0); MEAN CORPUSCULAR HGB CONC 33.1 g/dl (32.0-36.5); MONO # 0.6 K/mm3 (0.0-0.8); MONO % 7.4 % (0.0-5.0); NEUTROPHILS # 4.6 K/mm3 (1.8-7.7); NEUTROPHILS % 59.1 % (36.0-66.0); PLATELET COUNT, AUTOMATED 272 k/mm3 (150-450); RED CELL DISTRIBUTION WIDTH 15.5 % (11.5-14.5); WHITE BLOOD COUNT 7.7 K/mm3 (4.0-10.0)
[2016-08-30 06:58] LABS: ERYTHROCYTE SEDIMENTATION RATE 18 mm/hr (0-30)
[2016-08-30 07:07] LABS: ANION GAP 15 MEQ/L (8-16); BLOOD UREA NITROGEN 4 MG/DL (7-18); CALCIUM LEVEL 7.5 MG/DL (8.8-10.2); CARBON DIOXIDE LEVEL 23 MEQ/L (21-32); CHLORIDE LEVEL 94 MEQ/L (98-107); CHOLESTEROL LEVEL 149 MG/DL (<200); CREATININE FOR GFR 0.85 MG/DL (0.55-1.02); GLOMERULAR FILTRATION RATE > 60.0 (>45); GLUCOSE, FASTING 81 MG/DL (80-110); SODIUM LEVEL 132 MEQ/L (136-145); TRIGLYCERIDES LEVEL 176 MG/DL (<150)
[2016-08-30 07:21] LABS: POTASSIUM SERUM 2.9 MEQ/L (3.5-5.1)
[2016-08-30] MEDS ORDERED: POTASSIUM CHLORIDE 10 MEQ SR TABLET PO STA (07:25)
[2016-08-30] MEDS ORDERED: GABAPENTIN 100 MG CAP PO ONE (07:30)
[2016-08-30] MEDS ORDERED: LORazepam 2 MG/ML VIAL (J2060) As Ordered ONE ×2 (09:00→09:01)
[2016-08-30] MEDS ORDERED: hydroCHLOROthiazide 25 MG TAB PO SCH (09:00)
[2016-08-30] MEDS ORDERED: LEVALBUTEROL 1.25 MG/0.5 ML CONCENTRATE NEB As Ordered ONE (09:02)
[2016-08-30 09:17] VITALS: BP 189/95
[2016-08-30] MEDS ORDERED: LORazepam 2 MG/ML VIAL (J2060) IV PRN (09:30)
[2016-08-30] MEDS ORDERED: LEVALBUTEROL 1.25 MG/0.5 ML CONCENTRATE NEB INH PRN (09:30)
[2016-08-30] MEDS ORDERED: IPRATROPIUM 0.02% SOLN 0.5MG/2.5 ML NEB INH PRN (09:30)
[2016-08-30] MEDS ORDERED: KCL 10MEQ IN 100ML SWI (KRUN) 10 MEQ in APPROPRIATE DILUENT 1 EA IV SCH ×2 (10:00)
[2016-08-30 10:11] LABS: MEAN CORPUSCULAR HEMOGLOBIN 34.2 pg (27.0-33.0); MEAN CORPUSCULAR HGB CONC 34.6 g/dl (32.0-36.5); MEAN CORPUSCULAR VOLUME 98.7 fl (80.0-96.0); RED CELL DISTRIBUTION WIDTH 15.4 % (11.5-14.5); WHITE BLOOD COUNT 7.4 K/mm3 (4.0-10.0)
[2016-08-30 10:43] LABS: ALBUMIN 2.4 GM/DL (3.2-5.2); ALBUMIN/GLOBULIN RATIO 0.69 (1.00-1.93); ALKALINE PHOSPHATASE 179 U/L (45-117); ALT/SGPT 12 U/L (12-78); ANION GAP 10 MEQ/L (8-16); AST/SGOT 14 U/L (15-37); BILIRUBIN,TOTAL 0.6 MG/DL (0.2-1.0); BLOOD UREA NITROGEN 4 MG/DL (7-18); CALCIUM LEVEL 7.5 MG/DL (8.8-10.2); CARBON DIOXIDE LEVEL 29 MEQ/L (21-32); CHLORIDE LEVEL 93 MEQ/L (98-107); CREATININE FOR GFR 0.72 MG/DL (0.55-1.02); GLOMERULAR FILTRATION RATE > 60.0 (>45); GLUCOSE, FASTING 109 MG/DL (80-110); POTASSIUM SERUM 3.1 MEQ/L (3.5-5.1); SODIUM LEVEL 132 MEQ/L (136-145); TOTAL PROTEIN 5.9 GM/DL (6.4-8.2)
[2016-08-30] MEDS: amLODIPine 5 MG TAB PO SCH ×2 (10:52→21:00)
[2016-08-30 11:03] VITALS: BP 127/67
[2016-08-30] MEDS: EUCERIN 120GM CREAM TOP SCH ×3 (11:03→21:11)
[2016-08-30] MEDS: CALCIPOTRIENE CREAM 0.005% 60GM TOP SCH ×2 (11:04→21:12)
[2016-08-30] MEDS: BETAMETHASONE DIP 0.05% OINT 15 GM TOP SCH ×2 (11:04→21:12)
[2016-08-30] MEDS: HEPARIN SOD (PORCINE) 5000 UNITS/ML VIAL SQ SCH ×2 (11:04→21:10)
[2016-08-30] MEDS: LEVALBUTEROL 1.25 MG/0.5 ML CONCENTRATE NEB INH SCH ×2 (11:11→15:09)
[2016-08-30] MEDS: IPRATROPIUM 0.02% SOLN 0.5MG/2.5 ML NEB INH SCH ×3 (11:11→19:38)
[2016-08-30] MEDS ORDERED: MAGNESIUM SULFATE 1 GM/100 ML D5W BAG (10MG/ML) (J3475) As Ordered ONE (11:22)
[2016-08-30] MEDS: levETIRAcetam 250MG TABLET (KEPPRA) PO SCH ×2 (11:25→21:11)
[2016-08-30] MEDS: MAG SULF 1GM/100ML (MAG RUN) 1 GM in APPROPRIATE DILUENT 1 EA IV SCH ×2 (11:54→12:47)
[2016-08-30] MEDS: POTASSIUM CHLORIDE 10 MEQ SR TABLET PO SCH ×2 (11:54→21:10)
[2016-08-30] MEDS: NICOTINE 7 MG/24 HR TRANSDERMAL TD SCH (12:47)
[2016-08-30] MEDS: BACTRIM 160MG/800MG DS TAB PO SCH ×2 (14:10→21:10)
[2016-08-30 15:07] LABS: ANION GAP 7 MEQ/L (8-16); BLOOD UREA NITROGEN 3 MG/DL (7-18); CALCIUM LEVEL 7.1 MG/DL (8.8-10.2); CARBON DIOXIDE LEVEL 29 MEQ/L (21-32); CHLORIDE LEVEL 94 MEQ/L (98-107); CREATININE FOR GFR 0.64 MG/DL (0.55-1.02); GLOMERULAR FILTRATION RATE > 60.0 (>45); GLUCOSE, FASTING 122 MG/DL (80-110); POTASSIUM SERUM 3.7 MEQ/L (3.5-5.1); SODIUM LEVEL 130 MEQ/L (136-145)
--- NOTE | 2016-08-30 15:50 | IPNPDOC ---
Date/Time Seen The patient was seen on 08/30/16 at 15:39. Progress Note SUBJECTIVE: The patient tells me that she feels tired and she has some pain in her right leg but otherwise she has no other complaints she denies chest pain shortness of breath fevers chills nausea vomiting or diarrhea OBJECTIVE: PHYSICAL EXAMINATION: VITAL SIGNS: Mildly tachycardic and afebrile and normotensive 99% on 3 L Please see below. GENERAL: Frail elderly female appears older than stated age she is resting comfortably at a 60 angle in bed he does not appear to be in any acute distress HEENT: Pupils equally round] like is moist mucous membranes elevation CVP CARDIOVASCULAR: Is 1 S2 she is not tachycardic at the time of my exam she is regular. RESPIRATORY: Fairly clear to auscultation possibly some expiratory wheeze scattered. ABDOMINAL: Bowel sounds present abdomen soft EXTREMITIES: Evidence of chronic psoriatic plaques possibly venous stasis dermatitis as well evidence of peripheral vascular disease on the left with previous bypass scars NEUROLOGICAL: Patient is awake alert and oriented to person place time and situation LABORATORY DATA: Hyponatremia hypokalemia hypomagnesemia multiple sets of cardiac enzymes negative the patient has a TSH within normal limits Please see below. MICROBIOLOGY: 2 sets of blood cultures are negative at 24 hours Please see below. IMAGING: Duplex ultrasound did not reveal any DVT chest x-ray did not reveal any focal consolidation DVT prophylaxis ordered?: Heparin twice a day ASSESSMENT AND PLAN: This is a 66-year-old female with mild cellulitis of the right lower extremity hospitals course complicated by rapid assessment this a.m for likely seizure. Problem #1 seizure: Rapid assessment was called and I did present to the patient 's bedside emergently just before 9 AM. Nursing staff stated that the patient was conversant when her eyes rolled to the back of her head and she became very stiff and rigid on my arrival she appeared to be postictal very lethargic with spontaneous moving all 4 extremities with good pulses perfusing blood pressure and O2 saturations I did not witness any tonic-clonic like movements. The patient did receive 1 mg of IV Ativan at that time. Upon further questioning of the patient later when her postictal. Resolved she did admit to me that she had a previous seizure 1 year ago with no etiology found at that time. At this time I will order for CT head stat an MRI of the brain stat EEG, recheck her electrolytes and try to discontinue any new an unnecessary at occasions started this evening and early this a.m. I spoke with Dr. Tamez neurology has agreed to see the patient in consultation the patient has been transferred down to the progressive care unit. The patient has been started on Keppra by mouth twice a day 500 mg. I have also ordered a toxicology screen Problem #2 cellulitis: Relatively mild the patient has no fevers or leukocytosis right lower extremity does not appear overtly impressive there is some warmth and erythema I will discontinue IV vancomycin which is new medication for her place replaced on Bactrim by mouth to complete a 5-10 day course. The patient has pain associated with the right lower extremity she has been receiving significant amount of IV morphine and Percocets overnight at this time I will discontinue these and transition her to gabapentin for was sounds to be more like neuropathic pain and also his antiepileptic effect. Her cellulitis is likely secondary to complicated psoriasis she has been started on betamethasone topicals she would certainly benefit from outpatient dermatology follow-up she has chronic changes that require significant amount of time to reverse Problem #3 hypokalemia: The patient did receive 40 mEq early this a.m. prior to her seizure after seizure she received an additional 10 IV potassium was, up to 3.2 she received 40 mEq by mouth twice a day in addition of this I did check a magnesium level is also low she is receiving 2 magnesium runs at this time Problem #4 hypertension the patient was not on any medications as an outpatient she was started on hydrochlorothiazide and amlodipine yesterday evening. This a.m. the patient is hyponatremic which she was not yesterday at this time I will discontinue her hydrochlorothiazide Problem #5 tobacco abuse cessation counseling offered the patient is using a nicotine patch Problem #6 elevated MCV will check folate and B12 levels Problem #7 COPD patient does not use any nebulizers or prescriptions at home she does not require any oxygen at home provided with when necessary Xopenex and monitor her respiratory status closely and echocardiogram has been ordered at the time of admission DISPOSITION: We'll continue to follow the patient closely. VS, I&O, 24H, Fishbone VS, I&O, 24H, Fishbone Vital Signs Date Time Temp Pulse Resp B/P Pulse Ox O2 Delivery O2 Flow Rate FiO2 08/30/16 11:03 97.2 100 20 127/67 99 Nasal Cannula 3.0 I&O- Last 24 Hours up to 6 AM 08/30/16 05:59 Intake Total 1080 ml Output Total 200 ml Balance 880 ml Laboratory Tests 2 08/29/16 17:55: Creatine Kinase MB 1.0, Creatine Kinase MB Relative Index 3.70, Total Creatine Kinase 27, Troponin I < 0.02 08/29/16 23:56: Creatine Kinase MB 1.0, Creatine Kinase MB Relative Index 3.70, Total Creatine Kinase 27, Troponin I < 0.02 08/30/16 05:36: 08/30/16 05:38: Creatine Kinase MB 1.0, Creatine Kinase MB Relative Index 3.33, Total Creatine Kinase 30, Troponin I < 0.02, Anion Gap 15, White Blood Count 7.7, Red Blood Count 3.57L, Hemoglobin 12.0, Hematocrit 36.1, Mean Corpuscular Volume 101.0H, Mean Corpuscular Hemoglobin 33.5H, Mean Corpuscular Hemoglobin Concent 33.1, Red Cell Distribution Width 15.5H, Platelet Count 272, Neutrophils (%) (Auto) 59.1, Lymphocytes (%) (Auto) 28.7, Monocytes (%) (Auto) 7.4H, Eosinophils (%) ( Auto) 2.3, Basophils (%) (Auto) 0.4, Neutrophils # (Auto) 4.6, Lymphocytes # ( Auto) 2.2, Monocytes # (Auto) 0.6, Eosinophils # (Auto) 0.2, Basophils # (Auto) 0.0, C-Reactive Protein, Quantitative 0.72H, Calcium Level 7.5L, Triglycerides Level 176H, Cholesterol Level 149, HDL Cholesterol 46, LDL Cholesterol 67.8, Cholesterol/HDL Ratio 3.239, Erythrocyte Sedimentation Rate 18, Glomerular Filtration Rate > 60.0, Large Unclassified Cells # 0.2, Large Unclassified Cells % 2.1, Non-HDL Cholesterol (LDL + VLDL) 103, Thyroid Stimulating Hormone ( TSH) 2.330 08/30/16 09:56: Blood Urea Nitrogen 4L, Creatinine 0.72, Sodium Level 132L, Potassium Level 3.1L , Chloride Level 93L, Carbon Dioxide Level 29, Calcium Level 7.5L, Aspartate Amino Transf (AST/SGOT) 14L, Alanine Aminotransferase (ALT/SGPT) 12, Alkaline Phosphatase 179H, Total Bilirubin 0.6, Total Protein 5.9L, Albumin 2.4L, Albumin /Globulin Ratio 0.69L, Anion Gap 10, Ethyl Alcohol Level < 0.003, Gamma Glutamyl Transpeptidase 180H, Glomerular Filtration Rate > 60.0, Magnesium Level 1.3L 08/30/16 14:36: Blood Urea Nitrogen 3L, Creatinine 0.64, Sodium Level 130L, Potassium Level 3.7 , Chloride Level 94L, Carbon Dioxide Level 29, Calcium Level 7.1L, Anion Gap 7L , Glomerular Filtration Rate > 60.0 Laboratory Tests 08/30/16 05:38 Red Blood Count 3.57 L, Mean Corpuscular Volume 101.0 H, Mean Corpuscular Hemoglobin 33.5 H, Mean Corpuscular Hemoglobin Concent 33.1, Red Cell Distribution Width 15.5 H, Neutrophils (%) (Auto) 59.1, Lymphocytes (%) (Auto) 28.7, Monocytes (%) (Auto) 7.4 H, Eosinophils (%) (Auto) 2.3, Basophils (%) ( Auto) 0.4, Neutrophils # (Auto) 4.6, Lymphocytes # (Auto) 2.2, Monocytes # (Auto ) 0.6, Eosinophils # (Auto) 0.2, Basophils # (Auto) 0.0 08/30/16 09:56 Red Blood Count 3.49 L, Mean Corpuscular Volume 98.7 H, Mean Corpuscular Hemoglobin 34.2 H, Mean Corpuscular Hemoglobin Concent 34.6, Red Cell Distribution Width 15.4 H, Calcium Level 7.5 L, Aspartate Amino Transf (AST/SGOT ) 14 L, Alanine Aminotransferase (ALT/SGPT) 12, Alkaline Phosphatase 179 H, Total Bilirubin 0.6, Total Protein 5.9 L, Albumin 2.4 L 08/30/16 14:36 Calcium Level 7.1 L Microbiology 08/29/16 Blood Culture - Preliminary, Resulted No growth after 24 hours . All specim... 08/29/16 Blood Culture - Preliminary, Resulted No growth after 24 hours . All specim... BOO LLAMAS MD Aug 30, 2016 15:50
[2016-08-30 16:00] VITALS: BP 92/55
[2016-08-30] MEDS ORDERED: NS 1,000 ML IV SCH (16:00)
--- NOTE | 2016-08-30 16:23 | REP ---
Clinical: Seizures. Comparison 03/02/2012 . Findings: Age-related atrophy and microvascular ischemic changes with periventricular leukomalacia is appreciated. The ventricles and sulci are symmetric. Muniz-white differentiation is maintained. There is no evidence for acute intracranial hemorrhage, mass/mass effect, pathology or infarction. No extra-axial fluid collection. Calvarium is intact. Paranasal sinuses and mastoid air cells are clear. Impression: Age related atrophy and microvascular ischemic changes. No acute intracranial hemorrhage, infarction, or mass/mass effect. Signed by Carlos Hendricks MD 08/30/2016 04:15 P
[2016-08-30] MEDS: GABAPENTIN 100 MG CAP PO SCH ×2 (17:13→21:11)
[2016-08-30 20:00] VITALS: BP 104/55
[2016-08-30 21:00] VITALS: BP 104/55
[2016-08-31] VITALS (7 sets, daily range): BP systolic 101–123; BP diastolic 52–68
[2016-08-31 07:02] LABS: ANION GAP 6 MEQ/L (8-16); BLOOD UREA NITROGEN 3 MG/DL (7-18); CALCIUM LEVEL 7.5 MG/DL (8.8-10.2); CARBON DIOXIDE LEVEL 26 MEQ/L (21-32); CHLORIDE LEVEL 108 MEQ/L (98-107); CREATININE FOR GFR 0.61 MG/DL (0.55-1.02); GLOMERULAR FILTRATION RATE > 60.0 (>45); GLUCOSE, FASTING 85 MG/DL (80-110); MAGNESIUM LEVEL 2.1 MG/DL (1.8-2.4)
[2016-08-31] MEDS: IPRATROPIUM 0.02% SOLN 0.5MG/2.5 ML NEB INH SCH (07:08)
[2016-08-31 07:11] LABS: POTASSIUM SERUM 4.7 MEQ/L (3.5-5.1); SODIUM LEVEL 140 MEQ/L (136-145)
[2016-08-31] MEDS: BETAMETHASONE DIP 0.05% OINT 15 GM TOP SCH ×2 (08:10→20:50)
[2016-08-31] MEDS: CALCIPOTRIENE CREAM 0.005% 60GM TOP SCH ×2 (08:10→20:50)
[2016-08-31] MEDS: EUCERIN 120GM CREAM TOP SCH ×3 (08:10→22:27)
[2016-08-31] MEDS: HEPARIN SOD (PORCINE) 5000 UNITS/ML VIAL SQ SCH ×2 (08:11→20:49)
[2016-08-31] MEDS: BACTRIM 160MG/800MG DS TAB PO SCH ×2 (08:11→20:49)
[2016-08-31] MEDS: GABAPENTIN 100 MG CAP PO SCH ×3 (08:11→20:48)
[2016-08-31] MEDS: levETIRAcetam 250MG TABLET (KEPPRA) PO SCH ×2 (08:11→20:49)
[2016-08-31] MEDS: NICOTINE 7 MG/24 HR TRANSDERMAL TD SCH (08:11)
[2016-08-31] MEDS: POTASSIUM CHLORIDE 10 MEQ SR TABLET PO SCH (08:11)
[2016-08-31] MEDS ORDERED: INFLUENZA VIRUS VACCINE HIGH DOSE 0.5 ML SYRINGE (90662) IM ONE (09:00)
[2016-08-31] MEDS ORDERED: PREVNAR 13 VACCINE SYRINGE (CPT CODE:90670) IM ONE (09:00)
--- NOTE | 2016-08-31 09:16 | IPNPDOC ---
Date/Time Seen The patient was seen on 08/31/16 at 09:02. Progress Note SUBJECTIVE: The patient complains of pain in her left knee but otherwise she does not remember the events of yesterday immediately several occasions yesterday at the present time she tells me she feels quite well she denies chest pain shortness of breath lightheadedness dizziness nausea vomiting fevers or chills OBJECTIVE: PHYSICAL EXAMINATION: VITAL SIGNS: Mildly tachycardic and afebrile and normotensive otherwise Please see below. GENERAL: Frail elderly female appears older than stated age she is resting comfortably at a 60 angle in bed he does not appear to be in any acute distress HEENT: Pupils equally round like is moist mucous membranes elevation CVP CARDIOVASCULAR: s1 S2 she is not tachycardic at the time of my exam she is regular. RESPIRATORY: .clear to auscultation ABDOMINAL: Bowel sounds present abdomen soft EXTREMITIES: Evidence of chronic psoriatic plaques possibly venous stasis dermatitis as well evidence of peripheral vascular disease on the left with previous bypass scars NEUROLOGICAL: Patient is awake alert and oriented to person place time and situation LABORATORY DATA: Please see below. MICROBIOLOGY: 2 sets of blood cultures are negative at 24 hours Please see below. IMAGING: Duplex ultrasound did not reveal any DVT chest x-ray did not reveal any focal consolidation CT scan of the head revealed age-related atrophy and microvascular ischemic changes no acute intracranial hemorrhage infarction or mass effect DVT prophylaxis ordered?: Heparin twice a day Echocardiogram: Ordered and pending ASSESSMENT AND PLAN: This is a 66-year-old female with mild cellulitis of the right lower extremity hospitals course complicated by rapid for likely seizure. Problem #1 seizure: Patient delivered wrapped assessment yesterday she is able to provide a better history today at this time she is awake alert oriented to person place time and situation she does not remember yesterday at all but is able time that she had a seizure once in the past she has been seen by Dr. Ferguson of neurology at this time we're awaiting an MRI and EEG. She has exhibited no further seizure-like activity she has been started on Keppra 500 mg by mouth twice a day she has when necessary Ativan as needed which she has not required. I have low suspicion for alcohol withdrawal seizure the patient drinks regularly but not every day she is not exhibiting any other signs or symptoms of withdrawal of the tachycardia which may be attributed to nebulizer treatments Problem #2 cellulitis: Relatively mild the patient has no fevers or leukocytosis right lower extremity does not appear overtly impressive there is some warmth and erythema she has been transitioned to Bactrim by mouth to complete a 5-10 day course. Today the patient actually complains about left knee pain given her history I am concerned for a combination of osteoarthritis and psoriatic arthritis she has no adverse reaction to aspirin and NSAID products and as such I'll place her on Tylenol and have her work with physical therapy should these measures fail to control her pain would consider orthopedic surgery consultation for steroid injection . The patient was also started on gabapentin. Her cellulitis is likely secondary to complicated psoriasis or eczema skin she has been started on betamethasone topicals she would certainly benefit from outpatient dermatology follow-up she has chronic changes that require significant amount of time to reverse Problem #3 hypokalemia: Resolved Problem #4 hypertension the patient was not on any medications as an outpatient she was started on hydrochlorothiazide and amlodipine yesterday evening however at this time she is normotensive without using either glasses both been discontinued. Problem #5 hyponatremia: Resolved likely secondary to hydrochlorothiazide use Problem #6 hypomagnesemia: Resolved Problem #7 tobacco abuse cessation counseling offered the patient is using a nicotine patch Problem #8 elevated MCV will check folate and B12 levels may be related to some mild alcohol abuse Problem #9 COPD patient does not use any nebulizers or prescriptions at home she does not require any oxygen at home. At this time we will simply monitor she is written for when necessary nebulizers I will discontinue the standing Xopenex nebulizers as this may be driving some mild sinus tachycardia DISPOSITION: We'll continue to follow the patient closely. VS, I&O, 24H, Nery VS, I&O, 24H, Nery Vital Signs Date Time Temp Pulse Resp B/P Pulse Ox O2 Delivery O2 Flow Rate FiO2 08/31/16 08:19 Room Air 08/31/16 08:00 97.3 105 20 111/55 95 08/30/16 16:00 3.0 I&O- Last 24 Hours up to 6 AM 08/31/16 06:00 Intake Total 900 ml Output Total 300 ml Balance 600 ml Laboratory Tests 2 08/30/16 09:56: Blood Urea Nitrogen 4L, Creatinine 0.72, Sodium Level 132L, Potassium Level 3.1L , Chloride Level 93L, Carbon Dioxide Level 29, Calcium Level 7.5L, Aspartate Amino Transf (AST/SGOT) 14L, Alanine Aminotransferase (ALT/SGPT) 12, Alkaline Phosphatase 179H, Total Bilirubin 0.6, Total Protein 5.9L, Albumin 2.4L, Albumin /Globulin Ratio 0.69L, Anion Gap 10, Ethyl Alcohol Level < 0.003, Gamma Glutamyl Transpeptidase 180H, Glomerular Filtration Rate > 60.0, Magnesium Level 1.3L 08/30/16 14:36: Blood Urea Nitrogen 3L, Creatinine 0.64, Sodium Level 130L, Potassium Level 3.7 , Chloride Level 94L, Carbon Dioxide Level 29, Calcium Level 7.1L, Anion Gap 7L , Glomerular Filtration Rate > 60.0 08/31/16 06:23: Blood Urea Nitrogen 3L, Creatinine 0.61, Sodium Level 140#, Potassium Level 4.7# , Chloride Level 108H, Carbon Dioxide Level 26, Calcium Level 7.5L, Anion Gap 6L , Glomerular Filtration Rate > 60.0, Magnesium Level 2.1, Whole Blood Ionized Calcium 4.2L 08/31/16 08:01: Vancomycin Level Trough 5.9L Laboratory Tests 08/30/16 09:56 Calcium Level 7.5 L, Aspartate Amino Transf (AST/SGOT) 14 L, Alanine Aminotransferase (ALT/SGPT) 12, Alkaline Phosphatase 179 H, Total Bilirubin 0.6 , Total Protein 5.9 L, Albumin 2.4 L, Red Blood Count 3.49 L, Mean Corpuscular Volume 98.7 H, Mean Corpuscular Hemoglobin 34.2 H, Mean Corpuscular Hemoglobin Concent 34.6, Red Cell Distribution Width 15.4 H 08/30/16 14:36 Calcium Level 7.1 L 08/31/16 06:23 Calcium Level 7.5 L Microbiology 08/29/16 Blood Culture - Preliminary, Resulted No growth after 24 hours . All specim... 08/29/16 Blood Culture - Preliminary, Resulted No growth after 24 hours . All specim... BOO LLAMAS MD Aug 31, 2016 09:16
--- NOTE | 2016-08-31 09:40 | ECHO ---
DATE OF PROCEDURE: 08/30/2016 AGE: 66 GENDER: Female. HEIGHT: 62 inches. WEIGHT: 156 pounds. BODY SURFACE AREA: 1.72 sq m INPATIENT: Progressive care unit (PCU), room 3212. REFERRING PHYSICIAN: Dr. Vianey Swann INDICATIONS: Shortness of breath. Abnormal EKG. MEASUREMENTS: 2D MEASUREMENTS: RV: 3.2 cm LV: 4.2 cm Septum: 1.1 cm Posterior wall: 1.0 cm Aortic root: 3.3 cm LA: 3.6 cm LVEF: 50% DOPPLER MEASUREMENTS: AV: 1.1 m/s LVOT: 0.83 m/s MV-E: 65 A: 99 E/A ratio: 0.7 Early mitral deceleration time: 261 ms E prime: 4.8 A prime: 9 E/E prime ratio: 13.6 PV: 1.0 m/s Pulmonary artery acceleration time: 119 ms PASP: Question 25 mmHg IVC: 2.0 cm COMMENTS: Normal sinus rhythm without intraventricular conduction disturbance. Technically challenging study in light of the patient's body habitus, but diagnostically useful information was still obtained. Left atrial size was upper limits of normal. Normal left ventricular size. Right heart chamber sizes were normal. Left ventricle (LV) wall thickness was normal. On real-time imaging from the parasternal and apical projections, there appeared to be a localized septal wall motion abnormality, but other gamez move normally or were hyperkinetic. Normal-appearing mitral valvular apparatus and leaflet excursion with no posterior systolic buckling. Three equal size aortic cusps of normal thickness and cusp separation. Normal aortic root size. No apparent intracardiac mass or pericardial effusion. Color flow Doppler study taken from the parasternal and apical projections showed trace tricuspid but no apparent mitral or aortic insufficiency. Guided continuous wave Doppler of her aortic valve showed a normal peak systolic velocity against LV outflow tract obstruction. Pulsed and continuous wave Doppler of her LV inflow tract taken from the apical four-chamber projection showed normal diastolic filling velocities against mitral stenosis. There was more prominent late diastolic/atrial dependent filling pattern. Diastolic dysfunction was confirmed by a prolonged early mitral deceleration time and tissue Doppler of her mitral annulus. Current estimated mean left atrial pressure was upper limits of normal. Pulsed and continuous wave Doppler of her pulmonary trunk showed a normal peak systolic velocity against RV outflow tract obstruction. Her pulmonary artery acceleration time also appeared to be normal against an elevated pulmonary vascular resistance. We attempted to further estimate her right ventricular systolic pressure using guided continuous wave Doppler of her tricuspid valve, but were unable to obtain a complete spectral envelope. Her inferior vena cava was mildly dilated with absent respiratory collapse suggesting an elevated central venous pressure of at least 10-15 mmHg. CONCLUSIONS: Normal left ventricular size and wall thickness with localized septal wall motion abnormality and minimal impairment of global resting systolic function. Left atrial size upper limits of normal, but Doppler evidence of an impairment of LV diastolic function with current estimated mean left atrial pressure upper limits of normal. Normal right heart chamber sizes, but mildly dilated inferior vena cava with reduced respiratory collapse and localized septal wall motion abnormality suggesting an element of pulmonary hypertension - would rule out pulmonary embolism as a potential cause for the patient's shortness of breath.
[2016-08-31] MEDS: ACETAMINOPHEN 650MG ER TAB (TYLENOL ARTHRITIS) PO SCH ×3 (10:34→22:26)
--- NOTE | 2016-08-31 10:45 | CR ---
DATE OF CONSULTATION: 08/30/2016 REFERRING PHYSICIAN: Dr. Quan Diallo REASON FOR CONSULTATION: Seizure. HISTORY OF PRESENT ILLNESS: Renu Mendes is a 66-year-old woman who was admitted at [facility] due to cellulitis of legs. She has bilateral lower extremity edema and plaque psoriasis of legs. She does not see her primary care physician or a mail carrier technician for her psoriasis. She had increased right leg pain, redness and difficulty walking. She had a seizure a year ago when she was at home. She also has a history of DVT of left leg, which was treated with anticoagulation in 2013 and she was on Coumadin for a couple of years. She had another seizure in the hospital yesterday. According to nurses note, they caught the latter part of her seizure. When nurse walked in, her eyes were rolled back and she became rigid and started shaking with loss of consciousness. Duration is unknown. She is incontinent of urine at her baseline. There was no tongue biting. She denies any headaches, neck or back pain. She denies any dysphagia, dysarthria, diplopia or urinary incontinence. PAST MEDICAL HISTORY: Hypertension, dyslipidemia, deep vein thrombosis (DVT) twice in 2013, for which she was on Coumadin for 2 years. ALLERGIES: PENICILLIN, ASPIRIN, IRON. HOME MEDICATIONS: Tylenol as needed. SOCIAL HISTORY: She used to smoke one pack per day and quit many years ago. She smokes electronic cigarettes now. She denies alcohol or illicit drugs. She lives alone. FAMILY HISTORY: Mother had stroke. Father had pancreatic cancer. REVIEW OF SYSTEMS: All systems were reviewed and were found to be noncontributory except as mentioned in history present illness. PHYSICAL EXAMINATION: Blood pressure 168/75, pulse 68, respiratory 16. HEART: Regular rate and rhythm. LUNGS: Clear to auscultation. ABDOMEN: Soft, nontender, nondistended. NEUROLOGIC EXAMINATION: The patient is awake, alert, oriented to place, person and time. Normal speech, comprehension and repetition. Extraocular muscles are intact. No facial weakness. Tongue and uvula are midline. 5/5 strength in all four extremities. Deep tendon flexes 2+ in arms, 1+ in knees and absent at ankles. She has decreased cold, pinprick, vibration sensation in her feet. She has 1+ pedal edema. She has plaque psoriasis and cellulitis of her legs. There is no dysmetria. Gait was not tested. ASSESSMENT 1. Suspected generalized tonic-clonic seizure. 2. History of seizure a year ago. 3. Cellulitis and plaque psoriasis of legs. PLAN: 1. MRI brain. 2. EEG. 3. Seizure precautions. She is aware that she should not be driving for 6 months. 4. Keppra 500 mg by mouth twice a day 5. Continue appropriate antibiotics for the patient's cellulitis.
--- NOTE | 2016-08-31 12:34 | REP ---
Clinical: Seizures. Technique: Standard noncontrast MRI of the brain sequencing including axial and coronal T1, T2, FLAIR, sagittal T1, and diffusion/ADC mapping sequences. Findings: Age related atrophy with periventricular leukomalacia and microvascular ischemic changes appreciated. The ventricles and sulci are symmetric. Muniz-white differentiation is maintained. There is no obvious mass, mass effect, intracranial hemorrhage or evidence for acute infarction. No extra-axial fluid collection identified. Midline and midbrain structures as well as posterior fossa appear relatively normal. Impression: Age-related atrophy and microvascular ischemic changes with periventricular leukomalacia. Signed by Carlos Hendricks MD 08/31/2016 12:25 P
--- NOTE | 2016-08-31 16:17 | EDDOCDS ---
Physician Documentation [facility] Name: Renu Yan Age: 66 yrs Sex: Female : 1950 Arrival Date: 08/29/2016 Time: 10:31 Bed 14 Private MD: Disposition: 08/29/16 13:33 Hospitalization ordered by Vianey Swann for Inpatient Admission. Preliminary diagnosis is Cellulitis of right lower limb - associated with chronic changes - hyperkeratosis. - Bed requested for 4 [place]. - Status is Inpatient Admission. jo3 - Condition is Stable. - Problem is new. - Symptoms are unchanged. Historical: - Allergies: PENICILLINS; Aspirin; Iron CR; - Home Meds: 1. none - PMHx: Hypercholesterolemia; Hypertension; DVT; - PSHx: ; Hip Arthroplasty, Left; Hysterectomy; - Social history: Smoking status: Patient uses tobacco products, light tobacco smoker. No barriers to communication noted, The patient speaks fluent [place], Speaks appropriately for age. - Family history: Not pertinent. - : The pt / caregiver states he / she is not on anticoagulants. Home medication list is obtained from the patient. - Exposure Risk Screening:: None identified. Vital Signs: 08/29 10:53 BP 168 / 75 (auto/); Pulse 68; Resp 16; Temp 97.8(O); Pulse Ox 97% ; jo3 11:23 BP 199 / 94 (auto/); jo3 11:23 Pulse 126 MON; Pulse Ox 95% ; jo3 11:53 BP 186 / 88 (auto/); jo3 11:53 Pulse 100 MON; Pulse Ox 97% ; jo3 12:23 BP 164 / 75 (auto/); jo3 12:23 Pulse 86 MON; Pulse Ox 96% ; jo3 12:53 BP 180 / 79 (auto/); jo3 12:53 Pulse 100 MON; Pulse Ox 97% ; jo3 13:15 Pain 4/10; jo3 13:23 BP 155 / 73 (auto/); jo3 13:23 Pulse 94 MON; Pulse Ox 99% ; jo3 15:00 BP 158 / 89; Pulse 82; Resp 16; Temp 97.9(TE); Pulse Ox 96% on R/A; jo3 MDM: 10:45 -Blood Culture (Adults Only), peripheral from different site, or from device/port/PICC sd1 etc. if present ordered. 10:45 Director Cloud Transformation/Pulse Ox/q 15 min VS ordered. sd1 10:45 IV Saline Lock ordered. sd1 10:45 Oxygen at 4L/Min NC or Home dosage ordered. sd1 10:45 Rhythm Strip to chart ordered. sd1 10:45 B-Type Natiuretic Peptide Ordered. EDMS 10:45 Basic Metabolic Profile Ordered. EDMS 10:45 CBC with Diff Ordered. EDMS 10:45 -Blood Culture Ordered. EDMS 10:46 Chest, 2 View (pa\E\lat) Ordered. EDMS 10:46 ECG WITH READING ER PHYS+CARDIAG ordered. EDMS 10:47 Lactic Acid (Muniz tube on ice) Ordered. EDMS 10:47 PT/INR Ordered. EDMS 10:47 US Lower Extremities Bilateral R/O DVT Ordered. EDMS 10:54 LIVER PROFILE Ordered. EDMS 10:58 -Blood Culture (Adults Only), peripheral from different site, or from device/port/PICC lbd etc. if present complete. 11:00 BLOOD CULTURES Ordered. EDMS 11:10 ERYTHROCYTE SEDIMENTATION RATE Ordered. EDMS 11:10 C REACTIVE PROTEIN QUANTITATIV Ordered. EDMS 11:20 Financial registration complete. mm15 11:32 CBC with Diff Reviewed. sd1 11:34 [facility] Payment Agreement was scanned into [employer] and attached to record. mm15 11:43 PT/INR Reviewed. sd1 12:19 Basic Metabolic Profile Reviewed. sd1 12:19 CBC with Diff Reviewed. sd1 12:19 LIVER PROFILE Reviewed. sd1 12:19 C REACTIVE PROTEIN QUANTITATIV Reviewed. sd1 12:19 Lactic Acid (Muniz tube on ice) Reviewed. sd1 12:19 ERYTHROCYTE SEDIMENTATION RATE Reviewed. sd1 12:19 Chest, 2 View (pa\E\lat) Reviewed. sd1 12:19 US Lower Extremities Bilateral R/O DVT Reviewed. sd1 12:20 Misc. Nursing Order ordered. sd1 12:58 Ondansetron 4 mg IVP once ordered. jo3 12:59 morphine 2 mg IVP once ordered. jo3 13:35 Admission / Observation Status ordered. EDMS 13:36 2 GRAM SODIUM DIET ordered. EDMS 13:37 MRSA SCREEN Ordered. EDMS 13:38 PHYSICAL THERAPY EVAL & TREAT ordered. EDMS 13:40 PCR was scanned into [employer] and attached to record. gb 13:47 Written Provider Order was scanned into [employer] and attached to record. lbd 14:03 Written Provider Order was scanned into [employer] and attached to record. lbd 14:10 vancomycin 1 grams IVPB once over 60 mins; dilute in 250mL of NS or D5W ordered. jo3 14:10 morphine 2 mg IVP once ordered. jo3 14:10 oxyCODONE-acetaminophen 5 mg-325 mg 1 tabs PO once ordered. jo3 14:10 Hydrochlorothiazide 25 mg PO once ordered. jo3 14:10 amLODIPine 2.5 mg PO once ordered. jo3 15:01 CARDIAC MARKER PANEL Ordered. EDMS 15:02 ECHOCARD,DOPPLER/COLOR FLOW ordered. EDMS 08/30 08:58 T-Sheet-- Draft Copy was scanned into [employer] and attached to record. seh Administered Medications: 08/29 12:59 Drug: Ondansetron 4 mg [ondansetron HCl 2 mg/mL intravenous solution (2 mL)] Route: jo3 IVP; Site: left antecubital; 12:59 Drug: morphine 2 mg [morphine 2 mg/mL intravenous cartridge (1 mL)] Route: IVP; Site: jo3 left antecubital; 13:15 Follow up: Pain 4/10 Adult jo3 14:30 Drug: oxyCODONE-acetaminophen 1 tabs [oxycodone-acetaminophen 5 mg-325 mg tablet (1 jo3 tabs)] Route: PO; 14:30 Drug: Hydrochlorothiazide 25 mg [hydrochlorothiazide 25 mg tablet (1 tabs)] Route: PO; jo3 14:30 Drug: amLODIPine 2.5 mg Route: PO; jo3 14:32 Drug: morphine 2 mg [morphine 2 mg/mL intravenous cartridge (1 mL)] Route: IVP; Site: jo3 left antecubital; 14:34 Drug: vancomycin 1 grams [vancomycin 1,000 mg intravenous injection] Route: IVPB; jo3 Infused Over: 60 mins; Site: left antecubital; Signatures: Dispatcher [employer] EDMS Mya Morrell MD MD sd1 Daly, Linda, Injection Molding Supervisor Unit lbd Jo-Ann Ledezma, Reg Reg gb Roxanne Miguel RN RN Nevaeh Clinton mm15 Mya Jenkins The chart was reviewed and I authenticate all verbal orders and agree with the evaluation and treatment provided.Corrections: (The following items were deleted from the chart) 10:54 10:47 LIVER PROFILE+LAB ordered. EDMS EDMS 11:10 10:47 ERYTHROCYTE SEDIMENTATION RATE+LAB ordered. EDMS EDMS 11:10 10:47 C REACTIVE PROTEIN QUANTITATIV+LAB ordered. EDMS EDMS 13:37 13:37 BASIC METABOLIC PROFILE ordered. EDMS EDMS 13:37 13:37 BASIC METABOLIC PROFILE ordered. EDMS EDMS 13:37 13:37 C REACTIVE PROTEIN QUANTITATIV ordered. EDMS EDMS 13:37 13:37 C REACTIVE PROTEIN QUANTITATIV ordered. EDMS EDMS 13:37 13:37 CBC WITH DIFFERENTIAL ordered. EDMS EDMS 13:37 13:37 CBC WITH DIFFERENTIAL ordered. EDMS EDMS 13:37 13:37 ERYTHROCYTE SEDIMENTATION RATE ordered. EDMS EDMS 13:37 13:37 ERYTHROCYTE SEDIMENTATION RATE ordered. EDMS EDMS 15:14 15:01 CARDIAC MARKER PANEL ordered. EDMS EDMS Attachments: 11:34 [facility] Payment Agreement mm15 13:47 Written Provider Order lbd 14:03 Written Provider Order lbd 08/30 08:58 T-Sheet-- Draft Copy [facility] Chart Complete MTDD
--- NOTE | 2016-08-31 16:17 | EDDOCDS ---
Nurse's Notes [facility] Name: Justino Watt Age: 66 yrs Sex: Female : 1950 Arrival Date: 08/29/2016 Time: 10:31 Bed 14 Private MD: Diagnosis: Cellulitis of right lower limb-associated with chronic changes - hyperkeratosis Presentation: 08/29 10:35 Presenting complaint: EMS states: Leg pain x 3 weeks. Multiple ulcers to left leg and jo3 foot and right foot. Also reports some sciatica type pain. 10:36 Suicide/Homicide risk assessment- the patient denies having any suicidal and/or jo3 homicidal ideations and does not present with any other emotional, behavioral or mental health complaints. Status: Patient is not a industrial garage servicer or dependent. Transition of care: patient was not received from another setting of care. 10:36 Method Of Arrival: Ambulance jo3 11:08 Adult Sepsis Screening: The patient does not have new or worsening altered mentation. jo3 Patient's respiratory rate is less than 22. Systolic blood pressure is less than or equal to 100 (1 point). Patient has a qSOFA score of 0- Negative Sepsis Screen. 11:08 Acuity: JOSEPH Level 3 jo3 Triage Assessment: 11:13 General: Appears in no apparent distress, Behavior is appropriate for age, cooperative. jo3 Respiratory: Airway is patent Respiratory effort is even, unlabored. Historical: - Allergies: PENICILLINS; Aspirin; Iron CR; - Home Meds: 1. none - PMHx: Hypercholesterolemia; Hypertension; DVT; - PSHx: ; Hip Arthroplasty, Left; Hysterectomy; - Social history: Smoking status: Patient uses tobacco products, light tobacco smoker. No barriers to communication noted, The patient speaks fluent Portuguese, Speaks appropriately for age. - Family history: Not pertinent. - : The pt / caregiver states he / she is not on anticoagulants. Home medication list is obtained from the patient. - Exposure Risk Screening:: None identified. Screenin:17 Screening information is obtained from the patient. Fall risk: No risks identified. jo3 Assistance ADL's: requires no assistance with activities of daily living. Abuse/DV Screen: The patient / caregiver reports he/she is: not in a situation that causes fear, pain or injury. Nutritional screening: No deficits noted. Advance Directives: There is no active DNR order. home support is adequate. Assessment: 11:17 General: Appears in no apparent distress, comfortable, Behavior is appropriate for age, jo3 cooperative, pleasant. General: Pt has thick brown growth which is circumferential to left lower leg. Smell noted as musty. Lower right leg has patchy rash which looks similar in places to left lower leg. skin is reddened at right lower leg . Neurological: No deficits noted. Level of Consciousness is awake, alert, Oriented to person, place, time. Cardiovascular: No deficits noted. Respiratory: Airway is patent Respiratory effort is even, unlabored. Derm: Skin is pink, warm & dry. 12:20 Reassessment: Patient appears in no apparent distress at this time. Pt reports some jo3 pain to back. Positioned for comfort. will report to provider . 13:00 Reassessment: Patient appears in no apparent distress at this time. Medicated for pain jo3 at this time. Awaiting admission to medical floor. Aware of plan of care. Will monitor for medication effectiveness . 13:49 Reassessment: Patient states feeling better. Patient states symptoms have improved. jo3 Reports that pain is much improved at this time. Resting on stretcher quietly. awaiting admission at this time. Aware of plan of care . General: Appears in no apparent distress, comfortable, Behavior is appropriate for age, cooperative, pleasant. 14:45 General: Appears in no apparent distress, comfortable, Behavior is appropriate for age, jo3 cooperative, pleasant. General: Awaiting admission to medical floor. Eating lunch at this time. medicated for pain again at this tabitha. will monitor for effectiveness. Neurological: No deficits noted. Respiratory: Airway is patent Respiratory effort is even, unlabored. 15:13 Reassessment: Patient appears in no apparent distress at this time. Patient states jo3 feeling better. Patient states symptoms have improved. Admitted at this time . Vital Signs: 10:53 BP 168 / 75 (auto/); Pulse 68; Resp 16; Temp 97.8(O); Pulse Ox 97% ; jo3 11:23 BP 199 / 94 (auto/); jo3 11:23 Pulse 126 MON; Pulse Ox 95% ; jo3 11:53 BP 186 / 88 (auto/); jo3 11:53 Pulse 100 MON; Pulse Ox 97% ; jo3 12:23 BP 164 / 75 (auto/); jo3 12:23 Pulse 86 MON; Pulse Ox 96% ; jo3 12:53 BP 180 / 79 (auto/); jo3 12:53 Pulse 100 MON; Pulse Ox 97% ; jo3 13:15 Pain 4/10; jo3 13:23 BP 155 / 73 (auto/); jo3 13:23 Pulse 94 MON; Pulse Ox 99% ; jo3 15:00 BP 158 / 89; Pulse 82; Resp 16; Temp 97.9(TE); Pulse Ox 96% on R/A; jo3 Vitals: 11:13 Log In Time N/A - ambulance arrival. jo3 ED Course: 10:32 Patient visited by Kaitlin Ward, Bridge Worker Apprentice. lbd 10:32 Patient moved to Waiting lbd 10:33 Patient moved to 14 lbd 10:36 Mya Morrell MD is Attending Physician. sd1 10:36 Patient visited by Mya Morrell MD. sd1 11:09 Triage Initiated jo3 11:13 Patient moved to Ultrasound am10 11:17 The patient / caregiver is instructed regarding the plan of care and ED course. jo3 11:17 Inserted saline lock: 18 gauge in left antecubital area. Labs drawn. (by ED staff). jo3 Sent per order to lab. Labs/Blood culture drawn. 11:20 Patient visited by Roxanne Miguel RN. jo3 11:20 Patient visited by Roxanne Miguel,SAFIA. jo3 11:20 B-Type Natiuretic Peptide Sent. jo3 11:34 [facility] Payment Agreement was scanned into [employer] and attached to record. mm15 11:50 Patient moved to 14 am10 12:10 Chest, 2 View (pa\\E\\lat) Returned. EDMS 12:11 US Lower Extremities Bilateral R/O DVT Returned. EDMS 12:27 Patient visited by Roxanne Miguel,SAFIA. jo3 12:31 Patient name changed from Justino\\S\\M\\S\\Watt\\S\\ to Justino\\S\\Rissa\\S\\Watt. EDMS 12:39 Patient visited by Nathalie Talbert PCA. jlf 12:39 Notified attending ED physician of ambulated pt with walker, patient took a few steps jlf and stated "it hurts too much" and returned to the stretcher. Patient stating "her legs hurt", and asking for pain meds. RN Negrita Miguel notified as well.. 12:41 Patient visited by Nathalie Talbert PCA. jlf 13:33 Vianey Swann is Hospitalizing Provider. sd1 13:40 PCR was scanned into [employer] and attached to record. gb 13:43 EKG-ADULT Returned. EDMS 13:47 Written Provider Order was scanned into [employer] and attached to record. lbd 13:53 Patient visited by Roxanne Miguel RN. jo3 14:03 Written Provider Order was scanned into [employer] and attached to record. lbd 15:00 No procedures done that require assistance. jo3 08/30 08:58 T-Sheet-- Draft Copy was scanned into [employer] and attached to record. seh Administered Medications: 08/29 12:59 Drug: Ondansetron 4 mg [ondansetron HCl 2 mg/mL intravenous solution (2 mL)] Route: jo3 IVP; Site: left antecubital; 12:59 Drug: morphine 2 mg [morphine 2 mg/mL intravenous cartridge (1 mL)] Route: IVP; Site: jo3 left antecubital; 13:15 Follow up: Pain 4/10 Adult jo3 14:30 Drug: oxyCODONE-acetaminophen 1 tabs [oxycodone-acetaminophen 5 mg-325 mg tablet (1 jo3 tabs)] Route: PO; 14:30 Drug: Hydrochlorothiazide 25 mg [hydrochlorothiazide 25 mg tablet (1 tabs)] Route: PO; jo3 14:30 Drug: amLODIPine 2.5 mg Route: PO; jo3 14:32 Drug: morphine 2 mg [morphine 2 mg/mL intravenous cartridge (1 mL)] Route: IVP; Site: jo3 left antecubital; 14:34 Drug: vancomycin 1 grams [vancomycin 1,000 mg intravenous injection] Route: IVPB; jo3 Infused Over: 60 mins; Site: left antecubital; Order Results: Lab Order: B-Type Natiuretic Peptide; SPEC'M 08/29/16 11:01 Test: BRAIN NATRIURETIC PEPTIDE; Value: 56.2; Range: <100; Units: PG/ML; Status: F Lab Order: Basic Metabolic Profile; SPEC'M 08/29/16 11:01 Test: GLUCOSE, FASTING; Value: 94; Range: 80-110; Units: MG/DL; Status: F Test: BLOOD UREA NITROGEN; Value: 4; Range: 7-18; Abnormal: Below low normal; Units: MG/DL; Status: F Test: CREATININE FOR GFR; Value: 0.61; Range: 0.55-1.02; Units: MG/DL; Status: F Test: GLOMERULAR FILTRATION RATE; Value: > 60.0; Range: >45; Status: F Test: SODIUM LEVEL; Value: 139; Range: 136-145; Units: MEQ/L; Status: F Test: POTASSIUM SERUM; Value: 3.6; Range: 3.5-5.1; Units: MEQ/L; Status: F Test: CHLORIDE LEVEL; Value: 100; Range: 98-107; Units: MEQ/L; Status: F Test: CARBON DIOXIDE LEVEL; Value: 32; Range: 21-32; Units: MEQ/L; Status: F Test: ANION GAP; Value: 7; Range: 8-16; Abnormal: Below low normal; Units: MEQ/L; Status: F Test: CALCIUM LEVEL; Value: 8.2; Range: 8.8-10.2; Abnormal: Below low normal; Units: MG/DL; Status: F Test Note: ; Units are mL/min/1.73 m2 Chronic Kidney Disease Staging per NKF: Stage I & II GFR >=60 Normal to Mildly Decreased Stage III GFR 30-59 Moderately Decreased Stage IV GFR 15-29 Severely Decreased Stage V GFR <15 Very Little GFR Left ESRD GFR <15 on COMMERCIAL HVAC TECHNICIAN Lab Order: CBC with Diff; SPEC'M 08/29/16 11:01 Test: WHITE BLOOD COUNT; Value: 5.7; Range: 4.0-10.0; Units: K/mm3; Status: F Test: RED BLOOD COUNT; Value: 3.73; Range: 4.00-5.40; Abnormal: Below low normal; Units: M/mm3; Status: F Test: HEMOGLOBIN; Value: 12.8; Range: 12.0-16.0; Units: g/dl; Status: F Test: HEMATOCRIT; Value: 37.2; Range: 36.0-47.0; Units: %; Status: F Test: MEAN CORPUSCULAR VOLUME; Value: 99.7; Range: 80.0-96.0; Abnormal: Above high normal; Units: fl; Status: F Test: MEAN CORPUSCULAR HEMOGLOBIN; Value: 34.2; Range: 27.0-33.0; Abnormal: Above high normal; Units: pg; Status: F Test: MEAN CORPUSCULAR HGB CONC; Value: 34.3; Range: 32.0-36.5; Units: g/dl; Status: F Test: RED CELL DISTRIBUTION WIDTH; Value: 15.6; Range: 11.5-14.5; Abnormal: Above high normal; Units: %; Status: F Test: PLATELET COUNT, AUTOMATED; Value: 305; Range: 150-450; Units: k/mm3; Status: F Test: NEUTROPHILS %; Value: 73.9; Range: 36.0-66.0; Abnormal: Above high normal; Units: %; Status: F Test: LYMPH %; Value: 16.5; Range: 24.0-44.0; Abnormal: Below low normal; Units: %; Status: F Test: MONO %; Value: 6.3; Range: 0.0-5.0; Abnormal: Above high normal; Units: %; Status: F Test: EOS %; Value: 1.4; Range: 0.0-3.0; Units: %; Status: F Test: BASO %; Value: 0.4; Range: 0.0-1.0; Units: %; Status: F Test: LARGE UNSTAINED CELL %; Value: 1.4; Range: 0.0-4.0; Units: %; Status: F Test: NEUTROPHILS #; Value: 4.2; Range: 1.8-7.7; Units: K/mm3; Status: F Test: LYMPH #; Value: 0.9; Range: 1.5-4.5; Abnormal: Below low normal; Units: K/mm3; Status: F Test: MONO #; Value: 0.4; Range: 0.0-0.8; Units: K/mm3; Status: F Test: EOS #; Value: 0.1; Range: 0.0-0.50; Units: K/mm3; Status: F Test: BASO #; Value: 0.0; Range: 0.0-0.2; Units: K/mm3; Status: F Test: LARGE UNSTAINED CELL #; Value: 0.1; Range: 0.0-0.4; Units: K/mm3; Status: F Lab Order: Lactic Acid (Muniz tube on ice); SPEC' 08/29/16 11:01 Test: LACTIC ACID LEVEL, LACTATE; Value: 1.4; Range: 0.4-2.0; Units: MMOL/L; Status: F Lab Order: PT/INR; [facility] 08/29/16 11:01 Test: PROTHROMBIN TIME; Value: 14.2; Range: 12.3-14.5; Units: SECONDS; Status: F Test: INR; Value: 1.09; Status: F Test Note: ; THERAPUTIC HUMAN INR VALUES INDICATIONS NORMAL RANGES PROPHYLAXIS/TREATMENT OF: VENOUS THROMBOSIS 2.0-3.0 PULMONARY EMBOLISM 2.0-3.0 PREVENTION OF SYSTEMIC EMBOLISM FROM: TISSUE HEART VALVES 2.0-3.0 ACUTE MYOCARDIAL INFARCTION 2.0-3.0 VALVULAR HEART DISEASE 2.0-3.0 ATRIAL FIBRILLATION 2.0-3.0 MECHANICAL VALVES(HIGH RISK) 2.5-3.5 RECURRENT MYOCARDIAL INFARCTION 2.5-3.5 Lab Order: LIVER PROFILE; [facility] 08/29/16 11:01 Test: AST/SGOT; Value: 15; Range: 15-37; Units: U/L; Status: F Test: ALT/SGPT; Value: 12; Range: 12-78; Units: U/L; Status: F Test: ALKALINE PHOSPHATASE; Value: 190; Range: 45-117; Abnormal: Above high normal; Units: U/L; Status: F Test: BILIRUBIN,TOTAL; Value: 1.0; Range: 0.2-1.0; Units: MG/DL; Status: F Test: BILIRUBIN,DIRECT; Value: 0.4; Range: 0.0-0.2; Abnormal: Above high normal; Units: MG/DL; Status: F Test: TOTAL PROTEIN; Value: 6.4; Range: 6.4-8.2; Units: GM/DL; Status: F Test: ALBUMIN; Value: 2.5; Range: 3.2-5.2; Abnormal: Below low normal; Units: GM/DL; Status: F Test: ALBUMIN/GLOBULIN RATIO; Value: 0.64; Range: 1.00-1.93; Abnormal: Below low normal; Status: F Lab Order: ERYTHROCYTE SEDIMENTATION RATE; SPEC'M 08/29/16 11:01 Test: ERYTHROCYTE SEDIMENTATION RATE; Value: 17; Range: 0-30; Units: mm/hr; Status: F Lab Order: C REACTIVE PROTEIN QUANTITATIV; SPEC'M 08/29/16 11:01 Test: C REACTIVE PROTEIN QUANTITATIV; Value: 0.78; Range: 0.00-0.30; Abnormal: Above high normal; Units: MG/DL; Status: F Radiology Order: Chest, 2 View (pa\\E\\lat) Test: Chest, 2 View (pa\\E\\lat) REASON FOR EXAMINATION: Cough; Clinical: Acute cough .; ; Comparison: 08/23/2015 .; ; Technique: PA and lateral.; ; Findings:; The mediastinum and cardiac silhouette are normal. The lung lanier demonstrate; chronic changes without acute consolidation, effusion, or pneumothorax. Subtle; basilar atelectasis cannot be excluded. The skeletal structures are intact and; normal.; ; Impression:; No focal consolidation. Subtle basilar atelectasis cannot be excluded.; ; ; Signed by; Carlos Hendricks MD 08/29/2016 11:14 A; Radiology Order: EKG-ADULT Test: EKG-ADULT REASON FOR EXAMINATION: Shortness of Breath; Stationary ECG Study; [facility] - ED; ; Test Date: 2016-08-29; Pat Name: JUSTINO WATT Department:; Room: -; Gender: F Mobile Development Manager: trino; : 1950 Requested By: Mya Morrell; Order Number: [id number] Reading MD: Chip Anders; Measurements; Intervals [place]; Rate: 96 P: 65; LA: 151 QRS: 48; QRSD: 82 T: 60; QT: 340; QTc: 430; Interpretive Statements; SINUS RHYTHM; ; ; Electronically Signed On 08-29-2016 13:02:40 EST by Chip Anders; Radiology Order: US Lower Extremities Bilateral R/O DVT Test: US Lower Extremities Bilateral R/O DVT REASON FOR EXAMINATION: swelling/redness ; Clinical: Pain and swelling with erythema bilaterally.; ; Technique: Muniz scale and color Doppler evaluation using linear high frequency; transducer.; ; Findings:; Ultrasound examination of the right and left lower extremity deep venous; structures from the common femoral vein to the popliteal vein demonstrates normal; compressibility flow and wave patterns in response to respiration and; augmentation. There is no evidence for deep venous thrombosis. Diffuse; subcutaneous edema noted.; ; Impression:; Edema. No evidence for deep venous thrombosis.; ; ; Signed by; Carlos Hendricks MD 08/29/2016 11:53 A; Outcome: 13:33 Decision to Hospitalize by Provider. sd1 14:57 Admission hand-off: Report Faxed Fax receipt verified by Apoorva. jc4 15:00 Discharge Assessment: Patient awake, alert and oriented x 3. No cognitive and/or jo3 functional deficits noted. Patient verbalized understanding of disposition instructions. patient administered narcotics - yes. Patient was admitted to the hospital or transferred to another facility. The following High Risk Discharge criteria are identified: None. Admitted to Med/Surg accompanied by tech, via stretcher, with chart. Condition: stable. Ultrasound Study completed. Property :Personal belongings accompany Pt. 15:16 Patient left the ED. jo3 Signatures: Dispatcher [employer] EDMS Mya Morrell MD MD sd1 Kaitlin Ward, Bridge Worker Apprentice Unit lbd Jo-Ann Ledezma, Reg Reg Roxanne Velez,RN RN jo3 Jennifer Tyson am10 Roxanne Bass, SAFIA RN jc4 Nevaeh Hubbard mm15 Nathalie Talbert, LUDY CASE MGR Mya Colunga se Chart Complete MTDD
--- NOTE | 2016-08-31 16:17 | EDDOCDS ---
Physician Documentation [facility] Name: Renu Yan Age: 66 yrs Sex: Female : 1950 Arrival Date: 08/29/2016 Time: 10:31 Bed 14 Private MD: Disposition: 08/29/16 13:33 Hospitalization ordered by Vianey Swann for Inpatient Admission. Preliminary diagnosis is Cellulitis of right lower limb - associated with chronic changes - hyperkeratosis. - Bed requested for 4 [place]. - Status is Inpatient Admission. jo3 - Condition is Stable. - Problem is new. - Symptoms are unchanged. Historical: - Allergies: PENICILLINS; Aspirin; Iron CR; - Home Meds: 1. none - PMHx: Hypercholesterolemia; Hypertension; DVT; - PSHx: ; Hip Arthroplasty, Left; Hysterectomy; - Social history: Smoking status: Patient uses tobacco products, light tobacco smoker. No barriers to communication noted, The patient speaks fluent Peruvian, Speaks appropriately for age. - Family history: Not pertinent. - : The pt / caregiver states he / she is not on anticoagulants. Home medication list is obtained from the patient. - Exposure Risk Screening:: None identified. Vital Signs: 08/29 10:53 BP 168 / 75 (auto/); Pulse 68; Resp 16; Temp 97.8(O); Pulse Ox 97% ; jo3 11:23 BP 199 / 94 (auto/); jo3 11:23 Pulse 126 MON; Pulse Ox 95% ; jo3 11:53 BP 186 / 88 (auto/); jo3 11:53 Pulse 100 MON; Pulse Ox 97% ; jo3 12:23 BP 164 / 75 (auto/); jo3 12:23 Pulse 86 MON; Pulse Ox 96% ; jo3 12:53 BP 180 / 79 (auto/); jo3 12:53 Pulse 100 MON; Pulse Ox 97% ; jo3 13:15 Pain 4/10; jo3 13:23 BP 155 / 73 (auto/); jo3 13:23 Pulse 94 MON; Pulse Ox 99% ; jo3 15:00 BP 158 / 89; Pulse 82; Resp 16; Temp 97.9(TE); Pulse Ox 96% on R/A; jo3 MDM: 10:45 -Blood Culture (Adults Only), peripheral from different site, or from device/port/PICC sd1 etc. if present ordered. 10:45 Chief Operating Engineer/Pulse Ox/q 15 min VS ordered. sd1 10:45 IV Saline Lock ordered. sd1 10:45 Oxygen at 4L/Min NC or Home dosage ordered. sd1 10:45 Rhythm Strip to chart ordered. sd1 10:45 B-Type Natiuretic Peptide Ordered. EDMS 10:45 Basic Metabolic Profile Ordered. EDMS 10:45 CBC with Diff Ordered. EDMS 10:45 -Blood Culture Ordered. EDMS 10:46 Chest, 2 View (pa\E\lat) Ordered. EDMS 10:46 ECG WITH READING ER PHYS+CARDIAG ordered. EDMS 10:47 Lactic Acid (Muniz tube on ice) Ordered. EDMS 10:47 PT/INR Ordered. EDMS 10:47 US Lower Extremities Bilateral R/O DVT Ordered. EDMS 10:54 LIVER PROFILE Ordered. EDMS 10:58 -Blood Culture (Adults Only), peripheral from different site, or from device/port/PICC lbd etc. if present complete. 11:00 BLOOD CULTURES Ordered. EDMS 11:10 ERYTHROCYTE SEDIMENTATION RATE Ordered. EDMS 11:10 C REACTIVE PROTEIN QUANTITATIV Ordered. EDMS 11:20 Financial registration complete. mm15 11:32 CBC with Diff Reviewed. sd1 11:34 [facility] Payment Agreement was scanned into [employer] and attached to record. mm15 11:43 PT/INR Reviewed. sd1 12:19 Basic Metabolic Profile Reviewed. sd1 12:19 CBC with Diff Reviewed. sd1 12:19 LIVER PROFILE Reviewed. sd1 12:19 C REACTIVE PROTEIN QUANTITATIV Reviewed. sd1 12:19 Lactic Acid (Muniz tube on ice) Reviewed. sd1 12:19 ERYTHROCYTE SEDIMENTATION RATE Reviewed. sd1 12:19 Chest, 2 View (pa\E\lat) Reviewed. sd1 12:19 US Lower Extremities Bilateral R/O DVT Reviewed. sd1 12:20 Misc. Nursing Order ordered. sd1 12:58 Ondansetron 4 mg IVP once ordered. jo3 12:59 morphine 2 mg IVP once ordered. jo3 13:35 Admission / Observation Status ordered. EDMS 13:36 2 GRAM SODIUM DIET ordered. EDMS 13:37 MRSA SCREEN Ordered. EDMS 13:38 PHYSICAL THERAPY EVAL & TREAT ordered. EDMS 13:40 PCR was scanned into [employer] and attached to record. gb 13:47 Written Provider Order was scanned into [employer] and attached to record. lbd 14:03 Written Provider Order was scanned into [employer] and attached to record. lbd 14:10 vancomycin 1 grams IVPB once over 60 mins; dilute in 250mL of NS or D5W ordered. jo3 14:10 morphine 2 mg IVP once ordered. jo3 14:10 oxyCODONE-acetaminophen 5 mg-325 mg 1 tabs PO once ordered. jo3 14:10 Hydrochlorothiazide 25 mg PO once ordered. jo3 14:10 amLODIPine 2.5 mg PO once ordered. jo3 15:01 CARDIAC MARKER PANEL Ordered. EDMS 15:02 ECHOCARD,DOPPLER/COLOR FLOW ordered. EDMS 08/30 08:58 T-Sheet-- Draft Copy was scanned into [employer] and attached to record. seh Administered Medications: 08/29 12:59 Drug: Ondansetron 4 mg [ondansetron HCl 2 mg/mL intravenous solution (2 mL)] Route: jo3 IVP; Site: left antecubital; 12:59 Drug: morphine 2 mg [morphine 2 mg/mL intravenous cartridge (1 mL)] Route: IVP; Site: jo3 left antecubital; 13:15 Follow up: Pain 4/10 Adult jo3 14:30 Drug: oxyCODONE-acetaminophen 1 tabs [oxycodone-acetaminophen 5 mg-325 mg tablet (1 jo3 tabs)] Route: PO; 14:30 Drug: Hydrochlorothiazide 25 mg [hydrochlorothiazide 25 mg tablet (1 tabs)] Route: PO; jo3 14:30 Drug: amLODIPine 2.5 mg Route: PO; jo3 14:32 Drug: morphine 2 mg [morphine 2 mg/mL intravenous cartridge (1 mL)] Route: IVP; Site: jo3 left antecubital; 14:34 Drug: vancomycin 1 grams [vancomycin 1,000 mg intravenous injection] Route: IVPB; jo3 Infused Over: 60 mins; Site: left antecubital; Signatures: Dispatcher [employer] EDMS Mya Morrell MD MD sd1 Daly, Linda, Olericulture Teacher Unit lbd Jo-Ann Ledezma, Reg Reg gb Roxanne Miguel RN RN Nevaeh Clinton mm15 Mya Jenkins The chart was reviewed and I authenticate all verbal orders and agree with the evaluation and treatment provided.Corrections: (The following items were deleted from the chart) 10:54 10:47 LIVER PROFILE+LAB ordered. EDMS EDMS 11:10 10:47 ERYTHROCYTE SEDIMENTATION RATE+LAB ordered. EDMS EDMS 11:10 10:47 C REACTIVE PROTEIN QUANTITATIV+LAB ordered. EDMS EDMS 13:37 13:37 BASIC METABOLIC PROFILE ordered. EDMS EDMS 13:37 13:37 BASIC METABOLIC PROFILE ordered. EDMS EDMS 13:37 13:37 C REACTIVE PROTEIN QUANTITATIV ordered. EDMS EDMS 13:37 13:37 C REACTIVE PROTEIN QUANTITATIV ordered. EDMS EDMS 13:37 13:37 CBC WITH DIFFERENTIAL ordered. EDMS EDMS 13:37 13:37 CBC WITH DIFFERENTIAL ordered. EDMS EDMS 13:37 13:37 ERYTHROCYTE SEDIMENTATION RATE ordered. EDMS EDMS 13:37 13:37 ERYTHROCYTE SEDIMENTATION RATE ordered. EDMS EDMS 15:14 15:01 CARDIAC MARKER PANEL ordered. EDMS EDMS Attachments: 11:34 [facility] Payment Agreement mm15 13:47 Written Provider Order lbd 14:03 Written Provider Order lbd 08/30 08:58 T-Sheet-- Draft Copy [facility] Chart Complete MTDD
[2016-09-01] MEDS: ACETAMINOPHEN 650MG ER TAB (TYLENOL ARTHRITIS) PO SCH ×3 (06:09→21:35)
[2016-09-01 06:36] LABS: MEAN CORPUSCULAR HEMOGLOBIN 33.9 pg (27.0-33.0); MEAN CORPUSCULAR HGB CONC 32.8 g/dl (32.0-36.5); MEAN CORPUSCULAR VOLUME 103.3 fl (80.0-96.0); RED CELL DISTRIBUTION WIDTH 15.7 % (11.5-14.5); WHITE BLOOD COUNT 7.2 K/mm3 (4.0-10.0)
[2016-09-01 06:58] LABS: ANION GAP 8 MEQ/L (8-16); BLOOD UREA NITROGEN 6 MG/DL (7-18); CALCIUM LEVEL 8.1 MG/DL (8.8-10.2); CARBON DIOXIDE LEVEL 26 MEQ/L (21-32); CHLORIDE LEVEL 103 MEQ/L (98-107); CREATININE FOR GFR 0.87 MG/DL (0.55-1.02); GLOMERULAR FILTRATION RATE > 60.0 (>45); GLUCOSE, FASTING 74 MG/DL (80-110); SODIUM LEVEL 137 MEQ/L (136-145)
[2016-09-01 07:16] LABS: POTASSIUM SERUM 5.7 MEQ/L (3.5-5.1)
[2016-09-01] MEDS ORDERED: TRIAMCINOLONE ACETONIDE SUSP 40 MG/ML VIAL (J3301) IA ONE (08:00)
[2016-09-01] MEDS ORDERED: LIDOCAINE 1% MDV 20ML VIAL SC ONE (08:00)
[2016-09-01] MEDS: GABAPENTIN 100 MG CAP PO SCH ×3 (09:14→21:35)
[2016-09-01] MEDS: NICOTINE 7 MG/24 HR TRANSDERMAL TD SCH (09:14)
[2016-09-01] MEDS: HEPARIN SOD (PORCINE) 5000 UNITS/ML VIAL SQ SCH ×2 (09:14→21:35)
[2016-09-01] MEDS: BACTRIM 160MG/800MG DS TAB PO SCH ×2 (09:14→21:35)
[2016-09-01] MEDS: levETIRAcetam 250MG TABLET (KEPPRA) PO SCH ×2 (09:14→21:35)
[2016-09-01] MEDS: CALCIPOTRIENE CREAM 0.005% 60GM TOP SCH ×2 (09:15→21:35)
[2016-09-01] MEDS: EUCERIN 120GM CREAM TOP SCH ×3 (09:15→21:36)
[2016-09-01] MEDS: BETAMETHASONE DIP 0.05% OINT 15 GM TOP SCH ×2 (09:15→21:35)
[2016-09-01 10:09] LABS: FOLATE 3.5 NG/ML (>5.4)
--- NOTE | 2016-09-01 12:53 | CR ---
DATE OF CONSULTATION: 09/01/2016 At the request of Dr. Diallo. I was contacted by Jessenia Norman this morning that Dr. Diallo was asking me to come and inject Renu Mendes's left knee. Apparently, she could not take other anti-inflammatories, and he felt that her psoriatic arthritis was acting up. Around 12:30 today, I examined the patient. She was finishing lunch. She was able to move her knee without much difficulty through range of motion. She had no effusion. All of her tenderness was over the peroneal nerve posteriorly; and when a little bit of pressure was applied to the peroneal nerve, that reproduced her discomfort. There was nothing about her knee that looked to be evidence for inflammation or any fluid whatsoever. The patient is in the hospital with severe vascular compromise of her lower extremities. She has eschar pretty much from the tibial tubercle down. I thought that there was really no reason to inject the knee. No indication that that is the pain generator. The patient was initially unaware of the fact that I was to inject her knee. We discussed the risks and benefits of that. We discussed the possible etiology for her discomfort behind her knee, as the peroneal nerve. I do not think there is much intervention that can be done for that right now.
[2016-09-01 14:00] VITALS: BP 123/67
--- NOTE | 2016-09-01 15:15 | IPNPDOC ---
Date/Time Seen The patient was seen on 09/01/16 at 15:07. Progress Note SUBJECTIVE: The patient continues to pain complain of extreme pain in the left knee but otherwise she denies chest pain shortness of breath, lightheadedness dizziness nausea vomiting fevers or chills OBJECTIVE: PHYSICAL EXAMINATION: VITAL SIGNS: Mildly tachycardic and afebrile and normotensive otherwise Please see below. GENERAL: Frail elderly female appears older than stated age she is resting comfortably at a 60 angle in bed he does not appear to be in any acute distress HEENT: Pupils equally round like is moist mucous membranes elevation CVP CARDIOVASCULAR: s1 S2 she is not tachycardic at the time of my exam she is regular. RESPIRATORY: .clear to auscultation ABDOMINAL: Bowel sounds present abdomen soft EXTREMITIES: Evidence of chronic psoriatic plaques versus eschar possibly venous stasis dermatitis as well evidence of peripheral vascular disease on the left with previous bypass scars NEUROLOGICAL: Patient is awake alert and oriented to person place time and situation LABORATORY DATA: Hyperkalemia Please see below. MICROBIOLOGY: 2 sets of blood cultures are negative at 24 hours Please see below. IMAGING: Duplex ultrasound did not reveal any DVT chest x-ray did not reveal any focal consolidation CT scan of the head revealed age-related atrophy and microvascular ischemic changes no acute intracranial hemorrhage infarction or mass effect MRI of brainAge-related atrophy and microvascular ischemic changes with periventricular leukomalacia DVT prophylaxis ordered?: Heparin twice a day Echocardiogram: Normal left ventricular size and wall thickness with localized septal wall motion abnormality and minimal impairment of global resting systolic function. Left atrial size upper limits of normal, but Doppler evidence of an impairment of LV diastolic function EF 50% ASSESSMENT AND PLAN: This is a 66-year-old female with mild cellulitis of the right lower extremity hospitals course complicated by rapid assessment for seizure. Problem #1 seizure: she has been seen by Dr. Ferguson of neurology at this time we' re awaiting EEG. She has exhibited no further seizure-like activity she has been started on Keppra 500 mg by mouth twice a day. I have low suspicion for alcohol withdrawal seizure the patient drinks regularly but not every day she is not exhibiting any other signs or symptoms of withdrawal. Problem #2 cellulitis: Relatively mild the patient has no fevers or leukocytosis right lower extremity does not appear overtly impressive there is some warmth and erythema she has been transitioned to Bactrim by mouth to complete a 5-10 day course. Given that she is mildly hyperkalemic now I will recheck a BMP if it remains elevated I will likely transition her to doxycycline 100 mg by mouth twice a day to complete her course. The patient continues to complain of left knee pain and difficulties with moving her joint I 'm asked Dr. Solomon of orthopedic surgery to see and evaluate the patient obtain imaging studies. Will have her work with physical therapy. The patient was also started on gabapentin. Her cellulitis is likely secondary to complicated psoriasis or venous stasis dermatitis she has been started on betamethasone topicals I will check a CT angiogram of the lower extremities to assess her runoff she has a history of peripheral vascular disease with bypass. she would certainly benefit from outpatient dermatology follow-up she has chronic changes that require significant amount of time to reverse Problem #3 hyperkalemia: Potassium was initially low she was on repletion and on Bactrim now potassium is elevated we will recheck a second value today if remains elevated we'll switch her to doxycycline provide her with Kayexalate Problem #4 hypertension the patient was not on any medications as an outpatient she was started on hydrochlorothiazide and amlodipine upon admission however at this time she is normotensive without using either both have been discontinued. Problem #5 hyponatremia: Resolved likely secondary to hydrochlorothiazide use Problem #6 hypomagnesemia: Resolved Problem #7 tobacco abuse cessation counseling offered the patient is using a nicotine patch Problem #8 elevated MCV will check folate and B12 levels may be related to some mild alcohol abuse Problem #9 COPD patient does not use any nebulizers or prescriptions at home she does not require any oxygen at home. The patient remains mildly tachycardic and she did have echocardiogram findings which was felt concerning for pulmonary embolism as rechecking a CT angiogram of the lower extremity will also assess her chest to rule out any possible pulmonary embolism DISPOSITION: We'll continue to follow the patient closely. VS, I&O, 24H, Nery VS, I&O, 24H, Nery Vital Signs Date Time Temp Pulse Resp B/P Pulse Ox O2 Delivery O2 Flow Rate FiO2 09/01/16 09:22 Room Air 08/31/16 22:15 97.8 95 20 123/68 93 08/30/16 16:00 3.0 I&O- Last 24 Hours up to 6 AM 09/01/16 06:00 Intake Total 960 ml Output Total 900 ml Balance 60 ml Laboratory Tests 2 09/01/16 06:04: Anion Gap 8, Blood Urea Nitrogen 6#L, Creatinine 0.87, Sodium Level 137, Potassium Level 5.7H, Chloride Level 103, Carbon Dioxide Level 26, Calcium Level 8.1L, Glomerular Filtration Rate > 60.0, Magnesium Level 2.0 Laboratory Tests 09/01/16 06:04 Calcium Level 8.1 L, Red Blood Count 3.36 L, Mean Corpuscular Volume 103.3 H, Mean Corpuscular Hemoglobin 33.9 H, Mean Corpuscular Hemoglobin Concent 32.8, Red Cell Distribution Width 15.7 H Microbiology 08/29/16 Blood Culture - Preliminary, Resulted No Growth after 72 hours. All specime... 08/29/16 Blood Culture - Preliminary, Resulted No Growth after 72 hours. All specime... BOO LLAMAS MD Sep 01, 2016 15:15
[2016-09-01] MEDS ORDERED: ISOVUE-370 76% 100ML VIAL (Q9967) As Ordered ONE (15:42)
[2016-09-01 16:04] LABS: ANION GAP 8 MEQ/L (8-16); BLOOD UREA NITROGEN 6 MG/DL (7-18); CALCIUM LEVEL 8.1 MG/DL (8.8-10.2); CARBON DIOXIDE LEVEL 27 MEQ/L (21-32); CHLORIDE LEVEL 102 MEQ/L (98-107); CREATININE FOR GFR 0.84 MG/DL (0.55-1.02); GLOMERULAR FILTRATION RATE > 60.0 (>45); GLUCOSE, FASTING 112 MG/DL (80-110); POTASSIUM SERUM 4.9 MEQ/L (3.5-5.1); SODIUM LEVEL 137 MEQ/L (136-145)
--- NOTE | 2016-09-01 17:05 | REP ---
CT pulmonary angiogram: With IV contrast. History: Question pulmonary embolism. Comparison studies: Comparison CT pulmonary angiogram is from June 22, 2011. Contrast dose: 100 cc's of Isovue [address] technique: Helical scanning is acquired and overlapping 1.5 mm and contiguous 3 mm axial images are reformatted. In addition, a 3-D work station is deployed to generate thick slab maximum intensity projection images in sagittal and coronal imaging projections. CT pulmonary angiographic findings: There is good opacification of the pulmonary arterial tree. There is a solitary thin linear filling defect in one of the right lower lobe pulmonary artery segmental branches in the infrahilar level. This is best seen on slice #98 of 207, series 401 of today's study. It was not present in 2011 and is compatible with a small pulmonary embolus. No other CT evidence of pulmonary embolism is seen. Maximum intensity projection images show no other intravascular defect or vessel cutoff. No pleural or pericardial effusion is seen. No hilar or mediastinal mass or adenopathy is observed. No adrenal lesion is seen. There is a cyst in the upper pole of the left kidney. There are multiple nonunited right rib fractures. Thoracic aorta shows calcification, but enhances homogeneously without evidence of aneurysm or dissection. There is discoid atelectasis versus linear fibrosis in the bases bilaterally. There is a stable 4 mm pulmonary nodule in the left upper lobe anteriorly on image 33 of 104, series 402. This is unchanged from 2011. No other significant pulmonary nodule or mass is seen. Impression: 1. A solitary tiny filling defect in right lower lobe segmental pulmonary artery consistent with one small embolus. 2. Bibasilar discoid atelectasis versus fibrosis. 3. Atherosclerotic vascular calcifications. Signed by Everardo Tripp MD 09/01/2016 05:44 P
--- NOTE | 2016-09-01 17:37 | REP ---
CT angiogram of the abdominal aorta and runoff lower extremity arteries: With IV contrast. History: Peripheral vascular disease. CT contrast dose: 100 ml of Isovue 370 is administered intravenously by auto injector. CT technique: Helical scanning is acquired. 3 mm axial images are reformatted. Coronal and sagittal multiplanar re-formation images are generated and reviewed. Oblique axis multiplanar re-formation images are generated and reviewed. Surface rendered 3-D images are generated and displayed rotational about the vertical axis. Nonvascular CT findings: There is a 2.8 cm cyst in the lower pole of the left kidney. There is a 1.2 cm cyst in the upper pole of the left kidney. The patient is status post hysterectomy. There is an old orthopedic pin tract in the left proximal femur. Vascular findings: Moderate vascular calcification is seen in the suprarenal and infrarenal abdominal aorta. There is 60% stenosis at the origin of the celiac axis, which is involved by a calcific plaque. There is a short segment occlusion involving the origin of the superior mesenteric artery. This reconstitutes via collateral flow. The inferior mesenteric artery is patent although there is heavy calcification at its origin. There is 75-80% stenosis in the proximal main renal artery on the left. There is calcific plaquing producing 75-80% stenosis in the proximal renal artery on the right. The renal arteries are singular bilaterally. There is extensive virtually confluent calcific plaquing in the distal aorta and bilateral iliacs. Bilateral common iliac artery stenoses are seen, 50-60% on the left and 75 percent on the right. The common iliac artery bifurcations are calcific as well. 50-60% stenosis in the proximal external iliac at its origin is seen on the right. The internal iliac arteries are patent bilaterally although heavy heavily calcified. Multifocal calcific plaquing is seen in each external iliac artery. On the left there is an external iliac artery graft extending from the common iliac to the distal external iliac artery. This appears to be patent. There is some spray artifact from opaque markers in the graft. The left common femoral artery is somewhat dilated. There is a left fem-pop graft which is patent. The [place] left superficial femoral artery appears to be occluded. Profunda femoral artery is patent on the left. The left popliteal artery shows narrowing just beyond the distal graft anastomoses approximately 50%. There is vascular calcification in the trifurcation and proximal calf arteries and there is segmental fairly poor distal calf runoff on the left. On the right, a relatively small external iliac gives rise to a patent common femoral. Profunda femoral artery is patent. The proximal superficial femoral artery is occluded just beyond its origin and vascular calcification is seen in long segment occluded superficial femoral artery. This appears to reconstitute via collaterals at the level of the adductor canal. There is some vascular calcification in the popliteal artery. The calf trifurcation is patent, although there is calcification in the proximal posterior tibial artery. This is patent across the ankle. Anterior tibial artery is seen to the distal calf as is the peroneal. Impression: Extensive atherosclerotic vascular calcification with multiple stenoses. Both [place] superficial femoral arteries are occluded. There is a patent left common to external iliac artery graft and another patent left fem-pop graft is seen. Poor left-sided runoff is seen. The calf runoff is a little better on the right, but the superficial femoral artery is occluded and reconstituted in the level of the adductor canal. Multiple right popliteal artery calcific stenoses are seen. Bilateral renal artery stenoses are seen. 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 Signed by Everardo Tripp MD 09/01/2016 05:44 P
--- NOTE | 2016-09-01 17:38 | REP ---
Left knee series: Five views. History: Left knee concern for psoriatic arthritis. Findings: Five views of the left knee demonstrate diffuse osteoporosis. There are scattered surgical clips and vascular calcification is noted. No erosive changes seen. No evidence of joint effusion. Impression: Diffuse osteoporosis. Otherwise negative. Signed by Everardo Tripp MD 09/01/2016 05:44 P
--- NOTE | 2016-09-01 18:29 | REP ---
MRI study left knee without followed by with IV contrast: History: Concern for psoriatic arthritis with effusion. Technique: There is motion artifact on most of the sequences. The patient apparently had difficulty remaining still. Pre- and postcontrast enhanced imaging is acquired. Axial, coronal and sagittal imaging planes are included. T1 and T2-weighted scans were obtained with and without fat saturation. Gadolinium enhancement dose is 12 mL of intravenous ProHance. MRI findings: T2-weighted preinjection images show only minimal joint fluid. No significant effusion is seen. No Neumann's cyst is seen. Cortical and medullary bone signal intensity are normal. The posterior cruciate ligament appears intact. Patellar and quadriceps tendons are intact. Anterior cruciate is a little less well seen but appears to be intact as well. There is no evidence of medial or lateral collateral ligament disruption. No medial or lateral meniscal tear is seen. Postcontrast images show no abnormal or significant gadolinium enhancement. No vascular abnormality is observed. Impression: No evidence of internal derangement seen. Some motion artifact producing image degradation. No significant effusion. Signed by Everardo Tripp MD 09/01/2016 07:47 P
[2016-09-01 20:00] VITALS: BP 123/68
[2016-09-01 22:00] VITALS: BP 123/68
[2016-09-02] MEDS: ACETAMINOPHEN 650MG ER TAB (TYLENOL ARTHRITIS) PO SCH ×3 (05:30→21:17)
[2016-09-02 06:16] VITALS: BP 133/70
[2016-09-02 06:47] LABS: ANION GAP 9 MEQ/L (8-16); BLOOD UREA NITROGEN 5 MG/DL (7-18); CALCIUM LEVEL 8.1 MG/DL (8.8-10.2); CARBON DIOXIDE LEVEL 23 MEQ/L (21-32); CHLORIDE LEVEL 105 MEQ/L (98-107); CREATININE FOR GFR 0.79 MG/DL (0.55-1.02); GLOMERULAR FILTRATION RATE > 60.0 (>45); GLUCOSE, FASTING 79 MG/DL (80-110); MAGNESIUM LEVEL 1.9 MG/DL (1.8-2.4); POTASSIUM SERUM 4.9 MEQ/L (3.5-5.1); SODIUM LEVEL 137 MEQ/L (136-145)
[2016-09-02 06:49] LABS: MEAN CORPUSCULAR HEMOGLOBIN 34.2 pg (27.0-33.0); MEAN CORPUSCULAR HGB CONC 33.3 g/dl (32.0-36.5); MEAN CORPUSCULAR VOLUME 102.5 fl (80.0-96.0); RED CELL DISTRIBUTION WIDTH 15.7 % (11.5-14.5)
--- NOTE | 2016-09-02 08:32 | IPN ---
DATE: 09/02/2016 This is a 66-year-old female seen at bedside. No overnight issues reported. She is resting comfortably. No chest pain, shortness of breath, abdominal pain, and no leg pain. OBJECTIVE: Temperature is 97.4, pulse 103, respiratory rate is 20, blood pressure (BP) 133/70, SpO2 is 95% on room air. General: The patient appears to be in no acute distress, is alert, oriented. HEENT: Unremarkable. Lungs: Clear. Heart: Regular rate and rhythm. Abdomen: Soft. Extremities: No edema, no calf tenderness. She does however, have still some chronic venous stasis changes as well as some mild erythema of the right lower extremity. However, this does appear to be clinically improving. LABORATORY DATA: White count 6.0, hemoglobin is 11.5 and stable, platelets 258,000. Sodium is 137 potassium 4.9, chloride 105, bicarbonate 23, anion gap 9, BUN is 5 creatinine 0.79, glucose 79, calcium 8.1, and magnesium is 1.9. Blood cultures remain negative times two for 72 hours. ASSESSMENT AND PLAN: 1. Seizure. Appreciate Dr. Ferguson's input. EEG is pending. Continue on Keppra 500 mg twice a day. We will continue to monitor. 2. Cellulitis. Does appear to be improving. Continue on doxycycline. She did have a CT angiography of the lower extremities. It does show that she does continue to have some issues with peripheral vascular disease and occlusion, but does have patent bypass grafts in place. She will need to followup with her vascular surgeon when she is discharged. She was seen by orthopedics, who did not feel that she had any underlying orthopedic issues to prevent her from walking. We will continue to have physical therapy work with her, and continue on gabapentin. 3. Psoriasis of the lower extremities with some dermatitis. She will need to followup with outpatient dermatology. 4. Chronic venous stasis. Dermatitis as outlined above. 5. Hyperkalemia, resolved. 6. Hypertension, stable. 7. Hyponatremia. We will continue to follow; however, this is resolved. 8. Hypomagnesemia, resolved. 9. Tobacco use with cessation counseling provided, and on a Nicoderm patch. 10. History of mild alcohol abuse. We will monitor for withdrawal symptoms. She does have a mildly elevated mean corpuscular volume (MCV). B12 level is within normal limits. Her folic acid level was a little low. We will continue with folic acid. ADDENDUM TO THE ANTIBIOTIC USAGE: The patient's doxycycline was actually switched to Bactrim DS twice a day on 08/30/2016. She will need to complete treatment through 09/06/2016. DISPOSITION: Anticipate home discharge in the next 24-48 hours.
[2016-09-02] MEDS: levETIRAcetam 250MG TABLET (KEPPRA) PO SCH ×2 (09:14→21:17)
[2016-09-02] MEDS: GABAPENTIN 100 MG CAP PO SCH ×3 (09:14→21:17)
[2016-09-02] MEDS: NICOTINE 7 MG/24 HR TRANSDERMAL TD SCH (09:14)
[2016-09-02] MEDS: BACTRIM 160MG/800MG DS TAB PO SCH ×2 (09:14→21:17)
[2016-09-02] MEDS: FOLIC ACID 1 MG TAB PO SCH (09:14)
[2016-09-02] MEDS: EUCERIN 120GM CREAM TOP SCH ×3 (09:15→21:18)
[2016-09-02] MEDS: HEPARIN SOD (PORCINE) 5000 UNITS/ML VIAL SQ SCH ×2 (09:15→21:17)
[2016-09-02] MEDS: CALCIPOTRIENE CREAM 0.005% 60GM TOP SCH ×2 (09:15→21:18)
[2016-09-02] MEDS: BETAMETHASONE DIP 0.05% OINT 15 GM TOP SCH ×2 (09:15→21:19)
[2016-09-02 14:00] VITALS: BP 125/68
--- NOTE | 2016-09-02 20:25 | EEG ---
DATE OF PROCEDURE: 09/01/2016 REFERRING PHYSICIAN: Quan Diallo MD DIAGNOSIS: Seizure. EE-[id number] CLINICAL HISTORY: The patient is 66-year-old woman who was admitted at [facility] due to cellulitis of legs. She had a seizure. This EEG was done to rule out epileptic potential. She had a seizure a year ago. She is currently on Keppra, vancomycin, Bactrim, gabapentin, etc. TECHNICAL DESCRIPTION: This digital EEG was recorded by 21 scalp, ear and two EKG electrodes and was reviewed in bipolar and referential montages following reformatting in 10-20 international electrode placement system. INTERPRETATION: This EEG was done in awake and drowsy states. Resting awake background rhythm consisted of 8 - 9 Hz alpha activity measuring 15 - 40 microvolts in amplitude. Attenuation of posterior dominant rhythm was seen during transition into drowsiness. No sleep was achieved. Hyperventilation elicited mild theta slowing of background rhythm. Photic stimulation remained unremarkable. EKG revealed normal sinus rhythm. No focal, lateralizing or epileptiform abnormalities were seen. No clinical or electrographic seizures. CONCLUSION: This EEG in awake and drowsy states is within normal limits.
[2016-09-02 22:00] VITALS: BP 139/56
[2016-09-03 06:00] VITALS: BP 140/84
[2016-09-03] MEDS: ACETAMINOPHEN 650MG ER TAB (TYLENOL ARTHRITIS) PO SCH (06:16)
[2016-09-03 06:54] LABS: MEAN CORPUSCULAR HEMOGLOBIN 33.4 pg (27.0-33.0); MEAN CORPUSCULAR HGB CONC 31.3 g/dl (32.0-36.5); MEAN CORPUSCULAR VOLUME 106.4 fl (80.0-96.0); RED CELL DISTRIBUTION WIDTH 16.9 % (11.5-14.5); WHITE BLOOD COUNT 5.3 K/mm3 (4.0-10.0)
[2016-09-03 07:02] LABS: ANION GAP 6 MEQ/L (8-16); BLOOD UREA NITROGEN 5 MG/DL (7-18); CALCIUM LEVEL 8.3 MG/DL (8.8-10.2); CARBON DIOXIDE LEVEL 28 MEQ/L (21-32); CHLORIDE LEVEL 103 MEQ/L (98-107); CREATININE FOR GFR 0.96 MG/DL (0.55-1.02); GLOMERULAR FILTRATION RATE > 60.0 (>45); GLUCOSE, FASTING 84 MG/DL (80-110); MAGNESIUM LEVEL 1.8 MG/DL (1.8-2.4); SODIUM LEVEL 137 MEQ/L (136-145)
[2016-09-03 07:03] LABS: POTASSIUM SERUM 5.3 MEQ/L (3.5-5.1)
[2016-09-03] MEDS ORDERED: BETA5OI TOP (07:17)
[2016-09-03] MEDS ORDERED: NICO7PA TD (07:17)
[2016-09-03] MEDS ORDERED: NITR4TASL SL (07:17)
[2016-09-03] MEDS ORDERED: SMZ-800T PO (07:17)
[2016-09-03] MEDS ORDERED: KEPP250T5 PO (07:17)
[2016-09-03] MEDS ORDERED: GABA-279 PO (07:17)
[2016-09-03] MEDS ORDERED: FOLI1TAB2 PO (07:17)
[2016-09-03] MEDS ORDERED: EUCECRE3 TOP (07:17)
[2016-09-03] MEDS ORDERED: KEPP500T6 PO (07:37)
[2016-09-03] MEDS ORDERED: DOXY-278 PO (07:37)
--- NOTE | 2016-09-03 08:06 | DSES ---
DATE OF ADMISSION: 08/29/2016 DATE OF DISCHARGE: 09/03/2016 PRIMARY CARE PROVIDER: Dr. Hernández CONSULTANTS: Dr. Ferguson and Dr. Solomon PROCEDURES: None. COMPLICATIONS: None. ABNORMAL EXAMS THAT NEED FOLLOWUP ON: Include lower extremity CT angiogram which demonstrates extensive atherosclerotic vascular calcification with multiple stenoses. Both [place] superficial femoral arteries were occluded. There is patent left common and external iliac artery graft and another patent left fem-pop graft that is seen. Poor left-sided runoff is seen. Calf runoff is a little better on the right, but superficial femoral artery is occluded and reconstituted in the level of the adductor canal. Multiple right popliteal artery calcific stenoses were seen and bilateral renal artery stenoses were seen. 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 However, the patient does not have any abdominal complaints, and recommending follow up with her vascular surgeon in [place] within the next couple of weeks. ADMISSION/DISCHARGE DIAGNOSES: 1. Seizure. Appreciated Dr. Ferguson's input. Electroencephalogram (EEG) is negative. However, this is the second time she has had a seizure. 2. Cellulitis involving the right lower extremity. 3. Psoriasis of the lower extremities with dermatitis. 4. Chronic venous stasis dermatitis. 5. Hyperkalemia. 6. Hypertension. 7. Hyponatremia. 8. Hypomagnesemia. 9. Tobacco use. 10. History of alcohol abuse with no signs of withdrawal. BRIEF HOSPITAL COURSE: Ms. Mendes is a pleasant 66-year-old female who presented to the emergency department on 08/29/2016 with right leg pain swelling and redness. She continues with chronic back pain with radiation to the lower extremities. Her cellulitis involving the right lower extremity was quite extensive from the ankle to just below the knee. She was started on IV vancomycin. Blood cultures remained negative after 72 hours and she was switched to Bactrim. On discharge, my concern however is that she does have some repeated issues with some hyperkalemia. Will change the Bactrim to doxycycline. She is also on an [place] inhibitor, which she may want close follow up in the next week or so with her primary care provider for this as well. As outlined above, she did have abnormal runoff with severe peripheral vascular disease. She is already established with a peripheral vascular surgeon in [place], which we would advise followup. For further information regarding intake physical, labs and diagnostics, please refer to the history and physical (H and P), as well as, Dr. Ferguson's input regarding her second time seizure. Her EEG was unremarkable, but will go ahead and leave her on the Keppra for now and she can followup outpatient. Dr. Solomon was consulted due to knee pain, but did not feel that this was anything requiring any further intervention and that some of the pain may be related to a peroneal nerve issue, which he did not feel that there was much intervention that could be obtained for the time being. At any rate, she has shown some improvement. Physical therapy did clear her for home with home services and will arrange that through [facility]. PHYSICAL EXAMINATION: Today, temperature is 97, pulse 106, respiratory rate 18, blood pressure (BP) 140/84, and SPO2 is 92% on room air. General: The patient appears to be in no acute distress. Is alert and oriented. HEENT: Unremarkable. Lungs: Clear. Heart: Regular rate and rhythm. Abdomen: Soft. Extremities: The erythema on the right leg is resolved. She does have chronic venous stasis and dermatitis changes. White count is 5.3, hemoglobin 11.5, platelets 261,000. Sodium 137, potassium 5.3, chloride 103, bicarb 20, anion gap 6, BUN is 5, creatinine 0.96, glucose is 84, magnesium 1.8. DISCHARGE CONDITION: Good. DISPOSITION: Discharge to home with services. DISCHARGE MEDICATIONS: - betamethasone ointment applied twice a day - Eucerin cream applied three times a day - folic acid 1 mg daily - gabapentin 100 mg three times a day - Keppra 500 mg twice a day - Nicoderm patch 7 mg patch applied daily - Nitrostat 0.4 mg sublingually every 5 minutes as needed - doxycycline 100 mg twice a day for 7 days She can continue with Extra Strength Tylenol. DISCHARGE INSTRUCTIONS: Discharge to home with public health. Activity as tolerated. She will need public health with physical therapy and nursing. Regular diet. Follow up with her primary care provider in a week. She may want to have a repeat renal profile at that time. Also, she should followup with Dr. Ferguson in a week and to see her vascular surgeon, Dr. Gaffney, within the next 2-3 weeks. Transition of care as outlined. She should followup with the vascular surgeon regarding her severe peripheral vascular disease and she may need further stenting. She understands she is return emergency department if symptoms worsen or progress. The discharge took approximately 35 minutes. REJI
[2016-09-03] MEDS: BACTRIM 160MG/800MG DS TAB PO SCH (08:38)
[2016-09-03] MEDS: levETIRAcetam 250MG TABLET (KEPPRA) PO SCH (08:39)
[2016-09-03] MEDS: GABAPENTIN 100 MG CAP PO SCH (08:39)
[2016-09-03] MEDS: HEPARIN SOD (PORCINE) 5000 UNITS/ML VIAL SQ SCH (08:40)
[2016-09-03] MEDS: NICOTINE 7 MG/24 HR TRANSDERMAL TD SCH (08:40)
[2016-09-03] MEDS: FOLIC ACID 1 MG TAB PO SCH (08:40)
[2016-09-03] MEDS: CALCIPOTRIENE CREAM 0.005% 60GM TOP SCH (08:41)
[2016-09-03] MEDS: BETAMETHASONE DIP 0.05% OINT 15 GM TOP SCH (08:42)
[2016-09-03] MEDS: EUCERIN 120GM CREAM TOP SCH (08:43)
== END 2016-09-03 11:17 | disposition home health service (06) | DRG 596 ==
LOC: M ED 10:31 → M ED INP 13:32 → M MSPAV 15:24 → M PCU 08-30 10:35 → M MS5PR 08-31 22:06
PROVIDERS: ADMIT General Practice; ATTEND Hospitalist
DX: L40.0 Psoriasis vulgaris (principal); E87.1 Hypo-osmolality and hyponatremia; L03.115 Cellulitis of right lower limb; J44.9 Chronic obstructive pulmonary disease, unspecified; E83.42 Hypomagnesemia; E87.6 Hypokalemia; I73.9 Peripheral vascular disease, unspecified; I10 Essential (primary) hypertension; F17.200 Nicotine dependence, unspecified, uncomplicated; Z88.0 Allergy status to penicillin; E78.00 Pure hypercholesterolemia, unspecified; G40.909 Epilepsy, unspecified, not intractable, without status epilepticus

== ENCOUNTER 2017-03-19 10:09 | Inpatient (IN) | payer MEDICARE, MEDICAID ==
[~2017-03-19] VITALS: Ht 157.5 cm; Wt 74.8 kg
[~2017-03-19 10:09] MED LIST changes: +BETA5OI TOP; +DOXY-278 PO; +EUCECRE3 TOP; +FOLI1TAB4 PO; +GABA-279 PO; +KEPP1TAB PO; +KEPP250T5 PO; +NICO7PA TD; +NITR4TASL SL; +SULF1TAB23 PO; +TYLE1TAB5 PO
[2017-03-19] MEDS ORDERED: MORPHINE 4 MG/ML 1ML SYRINGE IV ONE (10:30)
[2017-03-19] MEDS ORDERED: ONDANSETRON 4MG/2ML VIAL (J2405) IV ONE (10:30)
[2017-03-19 11:14] LABS: INR 1.08
[2017-03-19] MEDS ORDERED: SODIUM CHLORIDE 0.9% 1000 ML IV ONE (11:15)
[2017-03-19 11:17] LABS: BASO # 0.1 K/mm3 (0.0-0.2); BASO % 0.7 % (0.0-1.0); EOS # 0.1 K/mm3 (0.0-0.50); EOS % 0.8 % (0.0-3.0); LARGE UNSTAINED CELL # 0.1 K/mm3 (0.0-0.4); LARGE UNSTAINED CELL % 1.3 % (0.0-4.0); LYMPH % 11.4 % (24.0-44.0); MEAN CORPUSCULAR HEMOGLOBIN 34.7 pg (27.0-33.0); MEAN CORPUSCULAR HGB CONC 34.3 g/dl (32.0-36.5); MEAN CORPUSCULAR VOLUME 101.4 fl (80.0-96.0); MONO # 0.5 K/mm3 (0.0-0.8); MONO % 5.8 % (0.0-5.0); NEUTROPHILS # 6.6 K/mm3 (1.8-7.7); PLATELET COUNT, AUTOMATED 369 k/mm3 (150-450); RED CELL DISTRIBUTION WIDTH 13.7 % (11.5-14.5); WHITE BLOOD COUNT 8.3 K/mm3 (4.0-10.0)
[2017-03-19] MEDS ORDERED: ACET50TAOT PO (11:18)
--- NOTE | 2017-03-19 11:19 | REP ---
Chest one-view HISTORY: Trauma Comparison: 08/29/2016 Linear densities are present in the right lower lobe consistent with scar. The left lung is clear. The heart is normal in size. The pulmonary vasculature is normal in appearance. Impression: Right lower lobe scar. Signed by Adrián Ross MD 03/19/2017 11:11 A
[2017-03-19 11:28] LABS: ANION GAP 18 MEQ/L (8-16); BLOOD UREA NITROGEN 12 MG/DL (7-18); CALCIUM LEVEL 8.2 MG/DL (8.8-10.2); CARBON DIOXIDE LEVEL 21 MEQ/L (21-32); CHLORIDE LEVEL 97 MEQ/L (98-107); CREATININE FOR GFR 0.68 MG/DL (0.55-1.02); GLOMERULAR FILTRATION RATE > 60.0 (>45); GLUCOSE, FASTING 73 MG/DL (80-110); SODIUM LEVEL 136 MEQ/L (136-145)
--- NOTE | 2017-03-19 11:40 | REP ---
RIGHT HIP/PELVIS, THREE VIEWS: HISTORY: Trauma. There is a comminuted intratrochanteric fracture of the right femur. There is narrowing of the hip joint spaces. There is no dislocation. A stent is present in the left common iliac artery. IMPRESSION: Intertrochanteric right femur fracture. Signed by Adrián Ross MD 03/19/2017 11:44 A
[2017-03-19] MEDS ORDERED: BISACODYL 5 MG TAB PO PRN (13:00)
[2017-03-19] MEDS ORDERED: ACETAMINOPHEN TAB 650MG DOSE (2X325MG) PO PRN (13:00)
[2017-03-19] MEDS: MORPHINE 4 MG/ML 1ML SYRINGE IV PRN ×2 (13:11→14:37)
[2017-03-19] MEDS ORDERED: GLUCOSE 4 GM CHEW TABLET PO PRN (13:15)
[2017-03-19] MEDS ORDERED: DEXTROSE 50% 50 ML SYRINGE IV PRN (13:15)
[2017-03-19] MEDS ORDERED: NICOTINE 14 MG/24 HR TRANSDERMAL TD PRN (13:15)
[2017-03-19] MEDS ORDERED: GLUCAGON FOR INJ 1 MG VIAL (J1610) SC PRN (13:15)
[2017-03-19 13:41] LABS: T UPTAKE 37 % (30-39); THYROXINE (T4) 9.3 UG/DL (4.5-12.0)
--- NOTE | 2017-03-19 14:08 | HPE ---
DATE OF ADMISSION: 03/19/2017 CHIEF COMPLAINT: 66-year-old female coming in complaining of right sided hip pain. HISTORY OF PRESENT ILLNESS: This is a pleasant 66-year-old female with significant past medical history of deep vein thrombosis (DVT) two years ago, status post Coumadin therapy as instructed by her physician, with comorbidities of hypertension and hyperlipidemia who had not seen her primary care physician for the past two years. The patient states that she has not needed to see a physician and therefore has not seen one for the past two years. She no longer takes any medication other than Tylenol as needed over the counter as she is pleased that she no longer requires any of these medications. The patient used to smoke, but quit two years ago, and currently smokes E-cigarettes. Denies any alcohol or drug abuse. The patient also mentioned that she does not have a history of coronary artery disease, stroke history, diabetes, chronic kidney disease, congestive heart failure, or arrhythmias. Her only past medical history included hypertension, hyperlipidemia and psoriasis. The patient states that she was walking with her walker when she was getting a glass of water when she tripped on her throw rug. The patient denies of any precipitating factors such as chest pain, shortness of breath, dizziness, nausea, or vomiting that might have contributed to her fall. The patient also denies a prodrome illness such as fever, chills, cough, sputum production, abdominal pain, diarrhea, or dysuria that might have contributed to her fall as well. The patient normally walks with a walker and her most strenuous activity is exercising her arms and legs while sitting. The patient is able to walk with her walker roughly about one block. The patient denies of any shortness of breath or chest pain associated with these activities. The patient is resting comfortably in the emergency room. She does have some pain from a hip fracture. It is tolerable. It is slightly increasing in pain. Medication morphine was already ordered for her in the emergency room by the ER physician. REVIEW OF SYSTEMS: Ten point review of systems negative other than those described in the history of present illness (HPI). PAST MEDICAL HISTORY: Significant for DVT history status post Coumadin therapy, hypertension, hyperlipidemia, and psoriasis. SURGICAL HISTORY: Includes left hip fracture status post repair and section. SOCIAL HISTORY: The patient denies smoking currently, but quit two years ago. Utilizes E-cigarettes. Denies of any IV or drug abuse. Denies alcohol abuse. Socially occasionally drinks alcohol. ALLERGIES: - PENICILLIN (causes hives) - IRON (flu-like symptoms) MEDICATIONS FROM HOME: - Tylenol as needed over the counter 500 mg FAMILY MEDICAL HISTORY: Significant for father with prostate cancer, mother with heart disease, but she developed heart disease at the age of 68. PHYSICAL EXAMINATION: VITAL SIGNS: Temperature 98. Heart rate 103. Respiratory rate 18. Blood pressure 165/72. Saturation 97% on room air. On my examination, her heart rate was around 102, as well a respiratory rate of 16. HEENT: Normocephalic. No trauma. No infection of the eyes. Nose and throat is within normal limits. Mucosa is moist. NECK: Supple. No tracheal deviation. CARDIAC CATALAN: S1, S2 slightly tachycardiac. Pulses present. LUNGS: Equal air entry. Did not hear any wheezes, rales or rhonchi. ABDOMEN: Soft, nontender. Bowel sounds present. LOWER EXTREMITIES: The patient has bilateral psoriasis, slightly worse on the left than the right. Capillary refill present in all four extremities. SKIN: Intact, warm to touch, afebrile. NEUROLOGIC: The patient is currently awake, alert, oriented times three. Cranial nerves grossly intact. Motor and sensory limited due to right hip fracture. PSYCHIATRIC: The patient currently has normal mood and affect for current situation. Pleasant to speak to. DIAGNOSTIC STUDIES: The patient had a WBC normal. Hemoglobin and hematocrit and platelets all within normal. Basic metabolic profile within normal except for chloride of 97 and glucose of 73. Calcium 8.2. Coagulation studies, INR and PT within normal. No microbiology for me to review at this time. X-ray of the hip showed intertrochanteric right femur fracture. Chest x-ray showed as per radiology right lower lobe scar. ASSESSMENT AND PLAN: This is a pleasant 66-year-old female with history of DVT status post treatment with Coumadin two years ago with comorbidities of hypertension, hyperlipidemia and lower extremity psoriasis which she has not followed up with her primary care physician for the past two years as she believes she did not require one. She ambulates at home with a walker. She presents complaining of right hip pain. 1. Right hip intertrochanteric fracture. Dr. Schumacher was consulted by the ER physician who recommends medical evaluation as the patient has not seen a physician for the past two years. Was told that the patient is not planned for surgery today due to the workup that is necessary. Further recommendation and evaluation by Dr. Schumacher is greatly appreciated. In the interim, the patient will be further evaluated with telemetry monitoring, lipid profile, cardiac enzymes, BNP, thyroid studies, UA, and also will obtain lower extremity Doppler for the complete resolution of her DVT. The patient is not hypoxic, maybe slightly tachycardic, but I suspect that is secondary due to her hip fracture. Based on patient's activity with walker usage at home, the patient most likely will be at moderate risk to the intermediate surgery pending results of studies mentioned above. 2. Hypoglycemia. Finger stick monitoring. Will resume diet. Nothing by mouth as per surgeon. 3. Nicotine patch as needed as at this time unsure of the hospital policy regarding E-cigarettes. 4. DVT prophylaxis with heparin to be adjusted by the surgeon.
--- NOTE | 2017-03-19 14:45 | REP ---
REASON: Pain and swelling. DEEP VENOUS ULTRASONOGRAPHY LEFT THIGH, RULE OUT DVT: TECHNIQUE: Multiple ultrasonographic images of the deep venous structures of the thigh were obtained from the common femoral vein to the popliteal vein along with Doppler interrogation and color flow Doppler images. FINDINGS: There is no abnormal echogenic material seen within any of the visualized deep venous structures that would suggest acute thrombosis. Coaptation is unremarkable throughout. Doppler interrogation shows an expected response to respiratory variability and augmentation. The color flow images show what appears to be a normal vascular pattern throughout. IMPRESSION: There is no ultrasonographic evidence of deep venous thrombosis involving any of the visualized deep venous structures of the left thigh, as described above. Signed by Moris Whitten DO 03/19/2017 04:26 P
[2017-03-19 17:00] VITALS: BP 129/69
[2017-03-19] MEDS: MORPHINE 2 MG/ML 1ML SYRINGE IV PRN ×3 (17:28→21:55)
[2017-03-19] MEDS: SENOKOT S TAB PO SCH ×2 (18:02→20:11)
[2017-03-19] MEDS: METOPROLOL SUCC *XL* 12.5MG PER 1/2 TAB (TopROL *XL*) PO SCH (18:02)
[2017-03-19] MEDS: HEPARIN SOD (PORCINE) 5000 UNITS/ML VIAL SC SCH ×3 (18:02→20:13)
[2017-03-19 20:00] VITALS: BP 120/65
--- NOTE | 2017-03-19 21:38 | ECGEPIP ---
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
[2017-03-19 23:59] VITALS: BP 119/58
[2017-03-20] VITALS (9 sets, daily range): BP systolic 113–124; BP diastolic 57–67
[2017-03-20] MEDS: MORPHINE 2 MG/ML 1ML SYRINGE IV PRN ×6 (00:03→10:46)
[2017-03-20 05:32] LABS: MEAN CORPUSCULAR HGB CONC 33.5 g/dl (32.0-36.5); MEAN CORPUSCULAR VOLUME 101.5 fl (80.0-96.0); RED CELL DISTRIBUTION WIDTH 14.4 % (11.5-14.5)
[2017-03-20 05:50] LABS: ANION GAP 9 MEQ/L (8-16); BLOOD UREA NITROGEN 9 MG/DL (7-18); CALCIUM LEVEL 7.7 MG/DL (8.8-10.2); CARBON DIOXIDE LEVEL 27 MEQ/L (21-32); CHLORIDE LEVEL 100 MEQ/L (98-107); CHOLESTEROL LEVEL 167 MG/DL (<200); CREATININE FOR GFR 0.57 MG/DL (0.55-1.02); GLOMERULAR FILTRATION RATE > 60.0 (>45); GLUCOSE, FASTING 95 MG/DL (80-110); POTASSIUM SERUM 3.3 MEQ/L (3.5-5.1); SODIUM LEVEL 136 MEQ/L (136-145); TRIGLYCERIDES LEVEL 166 MG/DL (<150)
[2017-03-20] MEDS ORDERED: CLINDAMYCIN 600 MG in APPROPRIATE DILUENT 1 EA IV SCH (06:45)
--- NOTE | 2017-03-20 07:12 | IPNPDOC ---
Text Note Date of Service The patient was seen on 03/20/17. NOTE After review of current records and limited continuity of care; the current records indicated that the patient is at low to intermediate risk for an orthopedic procedure. She is currently medically optimized for surgery today. VS,Fishbone, I+O VS, Fishbone, I+O Laboratory Tests 03/19/17 10:48 Red Blood Count 3.55 L, Mean Corpuscular Volume 101.4 H, Mean Corpuscular Hemoglobin 34.7 H, Mean Corpuscular Hemoglobin Concent 34.3, Red Cell Distribution Width 13.7, Neutrophils (%) (Auto) 80.0 H, Lymphocytes (%) (Auto) 11.4 L, Monocytes (%) (Auto) 5.8 H, Eosinophils (%) (Auto) 0.8, Basophils (%) ( Auto) 0.7, Neutrophils # (Auto) 6.6, Lymphocytes # (Auto) 1.0 L, Monocytes # ( Auto) 0.5, Eosinophils # (Auto) 0.1, Basophils # (Auto) 0.1, Calcium Level 8.2 L , Total Creatine Kinase 358 H 03/20/17 04:54 Red Blood Count 3.08 L, Mean Corpuscular Volume 101.5 H, Mean Corpuscular Hemoglobin 34.0 H, Mean Corpuscular Hemoglobin Concent 33.5, Red Cell Distribution Width 14.4 Vital Signs Date Time Temp Pulse Resp B/P (MAP) Pulse Ox O2 Delivery O2 Flow Rate FiO2 03/20/17 06:30 22 03/20/17 04:00 97.7 106 114/61 (78) 90 Room Air I&O- Last 24 Hours up to 6 AM 03/20/17 06:00 Intake Total 1840 ml Output Total 300 ml Balance 1540 ml ESTER BENNETT MD Mar 20, 2017 07:12
[2017-03-20] MEDS ORDERED: POTASSIUM CHLORIDE 10 MEQ SR TABLET PO ONE (07:30)
[2017-03-20] MEDS: SENOKOT S TAB PO SCH ×2 (09:00→21:04)
[2017-03-20] MEDS: METOPROLOL SUCC *XL* 12.5MG PER 1/2 TAB (TopROL *XL*) PO SCH (09:00)
[2017-03-20] MEDS ORDERED: PERCOCET 5MG/325MG TAB PO ONE (09:45)
--- NOTE | 2017-03-20 11:44 | CR ---
DATE OF CONSULTATION: 03/19/2017 REASON FOR CONSULTATION: Right high intertrochanteric hip fracture. HISTORY OF PRESENT ILLNESS: She is a 66-year-old female who took a mechanical fall this morning at home in [place]. She tripped on a throw rug in front of the kitchen sink and fell over, injuring her right hip, unable to ambulate, was transferred to [facility], evaluated by Mya Flores, the emergency room physician, and found to have a right hip fracture and I was called to see her. No other injury. No loss of consciousness. No complaints of pain or soreness otherwise other than her right hip and groin area. There is no shortness of breath, chest pain, or other concomitant medical issues with this fall. Relevant history is that she has suffered a left hip fracture, cared for by Dr. Wang in 2008 with subsequent hardware removal in 2011. She also has undergone a left aortofemoral bypass stent grafting with Dr. Wing in [place] several years ago but has been doing well. She was on blood thinners but now has been off of Coumadin for 2 years. She also has developed a deep vein thrombosis (DVT) in the left leg remotely, but she is not on any blood thinners, only takes Tylenol now. Otherwise, she normally ambulates with a walker for safety and for balance. She is and lives alone. She has a history of: 1. Peripheral vascular disease. 2. History of deep vein thrombosis (DVT). 3. History of cellulitis in her lower extremities. 4. History of psoriasis. 5. History of hypertension. 6. History of hyperlipidemia. PAST SURGICAL HISTORY: 1. Aortofemoral bypass graft in the past. 2. Left hip fracture. 3. Left hip fracture hardware removal. She has also suffered a left wrist fracture in the distant past. MEDICATIONS: - Tylenol ALLERGIES: PENICILLIN and IRON SOCIAL HISTORY: She quit smoking many years ago, but she does use E-cigarettes. She is , as mentioned. She does not drink alcohol excessively. 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 Otherwise, as mentioned, she ambulates with a walker and lives alone. REVIEW OF SYSTEMS: Otherwise negative. For further details, please refer to Dr. Belén Lala's note. PHYSICAL EXAMINATION: She is a very pleasant, elderly female complaining of only isolated right hip pain. She is afebrile. Blood pressure is 148/70, pulse 102, respirations 16. HEENT: Examination is benign. Normocephalic, atraumatic. Extraocular muscles are grossly normal. Oropharynx is benign. CHEST: Clear to auscultation. HEART: Regular. I do not detect a murmur. ABDOMEN: Nontender. EXTREMITIES: Upper extremity examination, she can lift her arms up over her head. No pain or irritability about either shoulders, clavicles, elbows, forearms, or wrists. Her lower extremity examination showed that her right leg is shortened and externally rotated. Both legs have some reddish discoloration, but the skin is wrinkled but non edematous. There is no swelling. She is able to dorsiflex and plantar flex both ankles with normal strength. There is normal sensation actually to light touch when I palpate her feet. Both dorsally and plantarly. However, it is difficult to palpate pulses, so I obtained dopplerable dorsalis pedis on the left and a dopplerable posterior tibialis on the right. The hip is tender on the right when I palpate around the greater trochanter. LABORATORY STUDIES: Showed a white count of 8.3, hematocrit 36, platelets 269, prothrombin time 14.2. Sodium 136, potassium 4.0, chloride 97, bicarbonate 21, BUN 12, creatinine 0.68, glucose 73, CK 358, troponin less than 0.02. X-rays of her right hip show a displaced high intertrochanteric fracture on the right side. On the AP pelvis view you can see the aortic stent on the left iliac artery and you can see the left hip has no arthritis but evidence of prior screw fixation of the proximal femur. IMPRESSION: Right hip fracture in a female who has not seen her medical doctor for more than 2 years. She does have some other medical comorbidities that the emergency room physician and the hospitalist are recommending we evaluate further before considering surgical intervention. She wants her to have evaluation to make sure the DVT has been resolved. I have discussed this with Dr. Lala and Dr. Flores in detail. We will plan to proceed with surgery hopefully tomorrow, as the surgery schedule dictates. I talked to the patient about this and that I would recommend surgery for her and she understands that this is necessary but that it does carry risk of surgery to fix this hip fracture. There is a risk of infection, damage to nerves, blood vessels, anesthetic complications, phlebitis, embolism, heart attack, , amongst others. Given her poor vascularity and history of DVT, she is at significant increased risk of having a vascular compromise or a DVT again and possibly an embolism, but we will, of course, treat her with perioperative antibiotic for infection prophylaxis and blood thinners for DVT prophylaxis perioperatively. She has signed the consent. We will plan to proceed when she is felt to be medically optimized, hopefully tomorrow, and I have notified the operating room and I did tell the patient that I potentially will not be available to do the surgery and it may be Dr. Wang, Dr. Piña, Dr. Kemp or Dr. Lopez. She understands and she is fine with that plan.
[2017-03-20] MEDS ORDERED: SLF 3 ML SYR IV PRN (11:45)
[2017-03-20] MEDS ORDERED: PROPOFOL 200 MG/20 ML VIAL As Ordered ONE (13:45)
[2017-03-20] MEDS ORDERED: MIDAZOLAM INJ 2 MG/2 ML VIAL (J2250) As Ordered ONE (13:45)
[2017-03-20] MEDS ORDERED: fentaNYL 100 MCG/2 ML INJECTION (J3010) As Ordered ONE (13:45)
[2017-03-20] MEDS ORDERED: LIDOCAINE 2% INJ 100 MG/5 ML SDV (FOR ANES.) As Ordered ONE (13:45)
[2017-03-20] MEDS ORDERED: CLINDAMYCIN 600 MG/50 ML PREMIX BAG As Ordered ONE (14:03)
[2017-03-20] MEDS ORDERED: PHENYLephrine HCL 500 MCG/5 ML (100MCG/ML) SYRINGE (J2370) As Ordered ONE ×3 (14:26→14:55)
[2017-03-20] MEDS: CLINDAMYCIN INJ 900MG/6ML VIAL As Ordered ONE (14:35)
[2017-03-20] MEDS ORDERED: ePHEDrine SULFATE 25 MG/5 ML(5MG/ML) SYRINGE As Ordered ONE (15:02)
--- NOTE | 2017-03-20 15:31 | REP ---
Right hip intraoperative fluoroscopic views: A series of five intraoperative fluoroscopic views are performed during gamma nail placement. The final films demonstrate the gamma nail and fracture to be in satisfactory positions alignment. There is an interlocking screw in the distal femoral stem of the gamma nail. Fluoroscopic exposure time is 44 seconds. Fluoroscopic images are performed with last image hold technology. These images require no additional radiation. Signed by Taj Byrd MD 03/20/2017 03:23 P
[2017-03-20] MEDS ORDERED: MORPHINE 1MG/ML IN 0.9% NACL 100ML IV BAG As Ordered ONE (15:41)
[2017-03-20] MEDS ORDERED: fentaNYL 100 MCG/2 ML INJECTION (J3010) IV PRN (16:00)
[2017-03-20] MEDS ORDERED: NALBUPHINE HCL 10 MG/ML AMP (J2300) IV PRN (16:00)
[2017-03-20] MEDS ORDERED: EPIDURAL/PCA KEYS XX PRN (16:00)
[2017-03-20] MEDS ORDERED: ONDANSETRON 4MG/2ML VIAL (J2405) IV PRN ×2 (16:00)
[2017-03-20] MEDS ORDERED: LR 1,000 ML IV SCH (16:00)
[2017-03-20] MEDS ORDERED: MORPHINE 2 MG/ML 1ML SYRINGE IV PRN (16:00)
[2017-03-20] MEDS ORDERED: diphenhydrAMINE INJ 50MG/ML VIAL (J1200) IV PRN (16:00)
[2017-03-20] MEDS ORDERED: MORPHINE 1MG/ML IN 0.9% NACL 100ML IV BAG IV PRN (16:00)
[2017-03-20] MEDS ORDERED: NALOXONE INJ 0.4 MG/1 ML VIAL (J2310) IV PRN (16:00)
[2017-03-20] MEDS: HEPARIN SOD (PORCINE) 5000 UNITS/ML VIAL SC SCH ×2 (16:02→21:04)
[2017-03-20] MEDS: SLF 3 ML SYR IV SCH ×2 (16:03→21:05)
[2017-03-20] MEDS ORDERED: WARFARIN SOD 5 MG TAB PO ONE (17:00)
[2017-03-20] MEDS: NS 1,000 ML IV SCH (17:08)
[2017-03-20] MEDS: CLINDAMYCIN 600 MG in APPROPRIATE DILUENT 1 EA IV SCH (21:05)
--- NOTE | 2017-03-20 22:01 | IPNPDOC ---
Text Note Date of Service The patient was seen on 03/20/17. NOTE Subjective: Patient seen and examined at bedside. No acute event overnight. Patient has been optimized for surgery. She still admits to severe 10/10 right hip pain. Denies any chest pain, sob, abdominal pain, nausea, vomiting, diarrhea , constipation, blood in urine or stool. Denies any other current new complaints. Objective: Vitals: (See below) General: Patient is a elderly female laying comfortably in bed, AAOx3, not in apparent distress, with head elevated at 30 degrees HEENT: Normal cephalic atraumatic, Extraocular motion intact, pupil equal round and reactive to light, ~mucosal membrane moist, neck supple, no neck lymphadenopathy Cardio: RRR, Normal S1, S2, No murmur/rubs/gallops Pulm: Clear to auscultations bilaterally, no wheezing, rales, or rhonchi. Abdomen: + bowel sounds, soft, none tender, none distended, no peritoneal signs , no ecchymosis, no masses that were palpable Ext: trace pitting edema b/l, right hip was painful to palpation, wart like growth on both shins worse on left side. Left leg externally rotated, DP pulses palpable b/l Skin: Warm and dry Neuro: Cranial Nerve 2 through 12 intact, No focal neurological deficit Labs ( See below) Most significantly: hgb down to 10.5, k 3.3 lower than yesterday, urine culture pending Images/Procedures: Assessment and Plan: Right hip intertrochanteric fracture - OR today - Optimized for surgery intermediate risk for cardiac events - NPO - IVF - Pain control Hypokalemia -repleted Acute anemia. Likely from dilution. - daily CBC Hx of DVT no longer on Coumadin - continue sc heparin HTN - Metoprolol succinate 12.5 mg po daily HLD - Not on any medication at home, may need out patient record Psoriasis - Not on medication Nicotine dependence - Nicotine patch as needed DVT prophylaxis: Heparin 5000 sc q 8h Fluid, Electrolytes, Nutrition: NS 80 mlh, Code: Not discussed Disposition: PT/OT and per Ortho VS,Fishbone, I+O VS, Fishbone, I+O Laboratory Tests 03/20/17 04:54 Red Blood Count 3.08 L, Mean Corpuscular Volume 101.5 H, Mean Corpuscular Hemoglobin 34.0 H, Mean Corpuscular Hemoglobin Concent 33.5, Red Cell Distribution Width 14.4 Vital Signs Date Time Temp Pulse Resp B/P (MAP) Pulse Ox O2 Delivery O2 Flow Rate FiO2 03/20/17 18:30 98.6 106 18 113/67 (82) 96 Nasal Cannula 2.0 I&O- Last 24 Hours up to 6 AM 03/20/17 06:00 Intake Total 1840 ml Output Total 300 ml Balance 1540 ml GME ATTESTATION GME ATTESTATION My preceptor for this patient encounter was physically present in the building during the encounter and was fully available. As needed, all aspects of the patient interview, examination, medical decision making process, and medical care plan development were reviewed and approved by the preceptor. Preceptor is aware and concurs with the plan as stated in the body of this note and will attest to such by his/her cosignature. ATTENDING NOTE I, Bernardino Bennett, have both independently examined this patient as well as reviewed the documentation. I have discussed in detail with the resident the findings and plan of treatment as documented in the residents documentation. I will continue to follow the patient and offer further guidance to the patients care as necessary during this hospital stay. OLIVIER MAX DO Mar 20, 2017 22:01 BERNARDINO BENNETT MD Mar 21, 2017 17:37
[2017-03-21] VITALS: BP 110/66
[2017-03-21 04:00] VITALS: BP 129/60
[2017-03-21 05:28] LABS: MEAN CORPUSCULAR HEMOGLOBIN 34.4 pg (27.0-33.0); MEAN CORPUSCULAR HGB CONC 33.6 g/dl (32.0-36.5); MEAN CORPUSCULAR VOLUME 102.5 fl (80.0-96.0); RED CELL DISTRIBUTION WIDTH 14.1 % (11.5-14.5); WHITE BLOOD COUNT 10.2 K/mm3 (4.0-10.0)
[2017-03-21] MEDS: HEPARIN SOD (PORCINE) 5000 UNITS/ML VIAL SC SCH ×3 (05:32→21:06)
[2017-03-21] MEDS: CLINDAMYCIN 600 MG in APPROPRIATE DILUENT 1 EA IV SCH ×2 (05:32→14:10)
[2017-03-21] MEDS: SLF 3 ML SYR IV SCH ×4 (05:33→21:13)
[2017-03-21] MEDS: NS 1,000 ML IV SCH ×2 (05:33→14:11)
[2017-03-21 05:34] LABS: INR 1.15
[2017-03-21 05:51] LABS: ANION GAP 8 MEQ/L (8-16); BLOOD UREA NITROGEN 8 MG/DL (7-18); CALCIUM LEVEL 7.7 MG/DL (8.8-10.2); CARBON DIOXIDE LEVEL 29 MEQ/L (21-32); CHLORIDE LEVEL 99 MEQ/L (98-107); CREATININE FOR GFR 0.51 MG/DL (0.55-1.02); GLOMERULAR FILTRATION RATE > 60.0 (>45); GLUCOSE, FASTING 119 MG/DL (80-110); POTASSIUM SERUM 4.2 MEQ/L (3.5-5.1); SODIUM LEVEL 136 MEQ/L (136-145)
[2017-03-21] MEDS ORDERED: ONDANSETRON 4 MG TAB (S0181) PO PRN (06:45)
[2017-03-21] MEDS ORDERED: PERCOCET 5MG/325MG TAB PO PRN (06:45)
[2017-03-21] MEDS ORDERED: NS 1,000 ML IV SCH (06:45)
[2017-03-21] MEDS: MIRALAX *UNIT DOSE* 17GM PACKET PO SCH (07:23)
[2017-03-21] MEDS: MOM 30ML SUSPENSION UDC PO SCH (07:23)
[2017-03-21] MEDS: SENOKOT S TAB PO SCH ×2 (07:23→21:00)
[2017-03-21] MEDS: PERCOCET 5MG/325MG TAB PO PRN ×4 (07:24→21:07)
[2017-03-21] MEDS: METOPROLOL SUCC *XL* 12.5MG PER 1/2 TAB (TopROL *XL*) PO SCH (07:26)
[2017-03-21 08:00] VITALS: BP 120/59
[2017-03-21] MEDS ORDERED: PREVNAR 13 VACCINE SYRINGE (CPT CODE:90670) IM ONE (09:00)
[2017-03-21] MEDS ORDERED: MORPHINE 2 MG/ML 1ML SYRINGE IV ONE ×2 (09:30→13:30)
--- NOTE | 2017-03-21 09:44 | REP ---
RIGHT HIP TWO VIEWS: 03/21/2017. Comparison: Pelvis and AP hip 03/19/2017. Intraoperative x-ray, 03/20/2017. Clinical history: ORIF status post intertrochanteric fracture right hip. Findings: The two views show the blade paddle fixation of the intertrochanteric fracture of the femur with a single screw in the proximal shaft of the femur transfixing the femoral shaft component, alignment is essentially anatomic at the fracture site. Some minor degenerative changes at the hip joint. Pubic rami, pubic symphysis grossly intact. No other finding. Signed by Calixto Staton MD 03/21/2017 07:52 P
[2017-03-21] MEDS: BACTRIM 160MG/800MG DS TAB PO SCH ×2 (10:28→21:06)
--- NOTE | 2017-03-21 14:29 | IPNPDOC ---
Text Note Date of Service The patient was seen on 03/21/17. NOTE Subjective: Patient seen and examined at bedside. Patient had surgery yesterday , tolerated procedure well. Still admits to right hip pain. Later in the day, nurse called found patient's leon was dysfunctional and it got pulled out, patient had some blood on the leon that was pulled out. Denies any chest pain, sob, abdominal pain, nausea, vomiting, diarrhea, constipation, blood stool. Denies any other current new complaints. Objective: Vitals: (See below) General: Patient is a elderly female laying comfortably in bed, AAOx3, not in apparent distress, with head elevated at 30 degrees HEENT: Normal cephalic atraumatic, Extraocular motion intact, pupil equal round and reactive to light, ~mucosal membrane moist, neck supple, no neck lymphadenopathy Cardio: RRR, Normal S1, S2, No murmur/rubs/gallops Pulm: Clear to auscultations bilaterally, no wheezing, rales, or rhonchi. Abdomen: + bowel sounds, soft, none tender, none distended, no peritoneal signs , no ecchymosis, no masses that were palpable Ext: trace pitting edema b/l, right hip was painful to palpation, wart like growth on both shins worse on left side. Left leg externally rotated, DP pulses palpable b/l Skin: Warm and dry Neuro: Cranial Nerve 2 through 12 intact, No focal neurological deficit Labs ( See below) Most significantly: hgb down to 10.5, k 3.3 lower than yesterday, urine culture pending Images/Procedures: Assessment and Plan: Right hip intertrochanteric fracture - s/p ORIF POD # 1 - Coumadin per ortho - Pain control Leon malposition - According to nurse leon was not working initially and she had no urine output , after she pulled a little the leon came out and urine also came out - Bladder scan - Voiding trail - Monitor for signs of bleeding - 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 Likely from dilution. - daily CBC Hx of DVT no longer on Coumadin - continue sc heparin - receiving coumadin for hip fracture HTN - Metoprolol succinate 12.5 mg po daily HLD - Not on any medication at home, may need out patient record Psoriasis - Not on medication Nicotine dependence - Nicotine patch as needed DVT prophylaxis: Heparin 5000 sc q 8h and doses of warfarin per ortho Fluid, Electrolytes, Nutrition: diabetic diet Code: Not discussed Disposition: PT/OT and per Ortho, screening for PM&R VS,Fishbone, I+O VS, Fishbone, I+O Laboratory Tests 03/21/17 04:42 Red Blood Count 2.87 L, Mean Corpuscular Volume 102.5 H, Mean Corpuscular Hemoglobin 34.4 H, Mean Corpuscular Hemoglobin Concent 33.6, Red Cell Distribution Width 14.1, Calcium Level 7.7 L Vital Signs Date Time Temp Pulse Resp B/P (MAP) Pulse Ox O2 Delivery O2 Flow Rate FiO2 03/21/17 13:34 18 03/21/17 08:00 98.5 106 120/59 (79) 97 Nasal Cannula 2.0 I&O- Last 24 Hours up to 6 AM 03/21/17 06:00 Intake Total 2120 ml Output Total 450 ml Balance 1670 ml GME ATTESTATION GME ATTESTATION My preceptor for this patient encounter was physically present in the building during the encounter and was fully available. As needed, all aspects of the patient interview, examination, medical decision making process, and medical care plan development were reviewed and approved by the preceptor. Preceptor is aware and concurs with the plan as stated in the body of this note and will attest to such by his/her cosignature. ATTENDING NOTE I, Bernardino Chandra, have both independently examined this patient as well as reviewed the documentation. I have discussed in detail with the resident the findings and plan of treatment as documented in the residents documentation. I will continue to follow the patient and offer further guidance to the patients care as necessary during this hospital stay. LOIVIER MAX DO Mar 21, 2017 14:29 BERNARDINO CHANDRA MD Apr 14, 2017 18:48
[2017-03-21 14:30] VITALS: BP 109/66
[2017-03-21] MEDS ORDERED: WARFARIN SOD 5 MG TAB PO ONE (17:00)
[2017-03-21] MEDS ORDERED: SUCRALFATE 1 GM TAB PO ONE (17:45)
[2017-03-21] MEDS ORDERED: FAMOTIDINE 20 MG TAB PO ONE (17:45)
[2017-03-21 22:00] VITALS: BP 117/56
[2017-03-22] MEDS ORDERED: PANTOPRAZOLE 40MG TAB (PROTONIX) PO SCH ×2 (01:45→09:00)
[2017-03-22] MEDS: PERCOCET 5MG/325MG TAB PO PRN ×5 (01:55→19:42)
[2017-03-22] MEDS: PANTOPRAZOLE 40MG TAB (PROTONIX) PO SCH ×2 (01:55→21:39)
[2017-03-22] MEDS: NS 1,000 ML IV SCH (02:29)
[2017-03-22 06:00] VITALS: BP 131/65
[2017-03-22] MEDS: SLF 3 ML SYR IV SCH (06:00)
[2017-03-22] MEDS: HEPARIN SOD (PORCINE) 5000 UNITS/ML VIAL SC SCH ×3 (06:56→21:38)
[2017-03-22 07:28] LABS: INR 2.16
[2017-03-22 07:43] LABS: MEAN CORPUSCULAR HEMOGLOBIN 34.1 pg (27.0-33.0); MEAN CORPUSCULAR HGB CONC 32.7 g/dl (32.0-36.5); MEAN CORPUSCULAR VOLUME 104.4 fl (80.0-96.0); RED CELL DISTRIBUTION WIDTH 14.6 % (11.5-14.5); WHITE BLOOD COUNT 8.3 K/mm3 (4.0-10.0)
[2017-03-22 07:44] LABS: ANION GAP 10 MEQ/L (8-16); BLOOD UREA NITROGEN 8 MG/DL (7-18); CALCIUM LEVEL 6.9 MG/DL (8.8-10.2); CARBON DIOXIDE LEVEL 26 MEQ/L (21-32); CHLORIDE LEVEL 101 MEQ/L (98-107); CREATININE FOR GFR 0.56 MG/DL (0.55-1.02); GLOMERULAR FILTRATION RATE > 60.0 (>45); GLUCOSE, FASTING 99 MG/DL (80-110); POTASSIUM SERUM 3.9 MEQ/L (3.5-5.1); SODIUM LEVEL 137 MEQ/L (136-145)
[2017-03-22] MEDS: MOM 30ML SUSPENSION UDC PO SCH (09:57)
[2017-03-22] MEDS: BACTRIM 160MG/800MG DS TAB PO SCH ×2 (09:58→21:39)
[2017-03-22] MEDS: SENOKOT S TAB PO SCH ×2 (09:58→21:00)
[2017-03-22] MEDS: MIRALAX *UNIT DOSE* 17GM PACKET PO SCH (09:58)
[2017-03-22] MEDS: METOPROLOL SUCC *XL* 12.5MG PER 1/2 TAB (TopROL *XL*) PO SCH (09:58)
--- NOTE | 2017-03-22 10:31 | IPNPDOC ---
Text Note Date of Service The patient was seen on 03/22/17. NOTE Subjective: Patient is a 66 year old female with a PMHx of DVT (s/p Coumadin), DLP , HTN and Psoriasis who presented to the ER after she tripped at home and had hip pain. She was found to have a hip fracture when she came to the ER. She uses a walker at baseline. She was admitted to hospitalist service and she had an orthopedic correction on 03/20/17. Patient was seen and examined at the bedside. She notes that she has had some physical therapy yesterday (03/21) after her surgery. She still notes some pain. She denies any abdominal pain. Denies constipation, nausea or vomiting. She had a dysfunctional Morse catheter that was removed yesterday, no further hematuria. Objective: Vitals (See below) General: Lying in bed, no acute distress, comfortable, AAOx3 HEENT: NC, AT CVS: RRR, +S1S2 Lungs: Fair air entry b/l, no appreciable wheezing or crackles Abdomen: Soft, ND, NT, +BSx4 Extremities: - Edema, - Calf tenderness Assessment and plan: 1. Right hip pain - 2/2 right intertrochanteric fracture of femur - s/p ORIF ( POD #2) - Continues to work with physical therapy - not cleared - c/w anticoagulation and pain control as per orthopedic team 2. Morse malposition - Noted to have some hematuria upon removal of Morse - Continues to make urine; no reported hematuria at this time - c/w Bladder scans 3. s/p Hypokalemia 4. Macrocytic anemia - Acutely lower than baseline - likely dilutional - No evidence of bleeding at this time - Will get repeat Hg level at 200PM 5. History of DVT - s/p Coumadin in past for 1 year - Currently on Coumadin for DVT prophylaxis (re: hip surgery) 6. HTN - BP well controlled - c/w Metoprolol succinate 7. DLP - Not on any medications 8. Psoriasis - Not on any medications 9. Nicotine dependence - c/w Nicotine patch 10. DVT prophylaxis - As per orthopedic team Disposition: - c/w Physical therapy - Evaluation by PM&R VS,Nery, I+O VS, Nery, I+O Laboratory Tests 03/22/17 07:00 Red Blood Count 2.60 L, Mean Corpuscular Volume 104.4 H, Mean Corpuscular Hemoglobin 34.1 H, Mean Corpuscular Hemoglobin Concent 32.7, Red Cell Distribution Width 14.6 H, Calcium Level 6.9 L Vital Signs Date Time Temp Pulse Resp B/P (MAP) Pulse Ox O2 Delivery O2 Flow Rate FiO2 03/22/17 09:58 14 03/22/17 09:58 104 131/65 03/22/17 06:55 Room Air 03/22/17 06:00 98.4 92 03/21/17 08:00 2.0 I&O- Last 24 Hours up to 6 AM 03/22/17 06:00 Intake Total 4400 ml Output Total 675 ml Balance 3725 ml ESTER BENNETT MD Mar 22, 2017 10:31
--- NOTE | 2017-03-22 10:32 | RO ---
DATE OF PROCEDURE: 03/20/2017 PREPROCEDURE DIAGNOSIS: Right intertrochanteric hip fracture. POSTPROCEDURE DIAGNOSIS: Right intertrochanteric hip fracture. PROCEDURE: Open reduction internal fixation with cephalomedullary implant using a trochanteric femoral nail short length right hip. SURGEON: Isai Schumacher MD IMAGERY INTELLIGENCE: ANESTHESIA: Spinal. COMPLICATIONS: None. ESTIMATED BLOOD LOSS: 50 mL. DESCRIPTION OF PROCEDURE: Antibiotics were given intravenously preoperatively, and a successful spinal anesthetic was induced. Then, she was placed onto the fracture table and positioned appropriately. She was placed under traction and fluoroscopic imaging, and AP and lateral planes confirmed we get near-anatomical reduction. At this point, the right hip area was prepped and draped in the usual sterile fashion. After appropriate time-out, under fluoroscopic imaging, a small incision just proximal to the trochanter laterally. Bovie cautery was used to coagulate crossing vessels, divided down to the tensor fascia. Then, I could palpate the fracture site, and the greater trochanter was palpable. I placed the awl under fluoroscopic imaging, but this fell basically under the fracture site. Thus, the ball-tipped guide elier was able to easily be passed down the femoral canal. I checked the lateral, as well, and it was aligned up appropriately with the femoral neck. Thus, at this point, I asked for the short implant, and because it went right through the fascia, I did not think we needed to ream. I placed the implant, but it was tight distally; and surprisingly, she had a very tight femoral canal that did not appear on the preoperative x-rays. Thus, I removed the implant and then reamed beginning at 10 mm at 0.5 mm increments up to 12.5; and then, the cephalomedullary nail passed easily; and then, I used the drill guide for the femoral neck portion of the trochanteric femoral nail into the drill sleeve and then made a small incision into the skin and advanced it up to the lateral femoral cortex under fluoroscopic imaging. I then passed the threaded guidepin up the center of the femoral neck, and it was placed nicely on the AP plane; and then, in the lateral plane, we adjusted it a bit, but we had it centered in the femoral neck. It was a little bit anterior, but I felt this was acceptable because the fracture was actually quite comminuted, and I felt I was in good bone; and also, I went back to the AP plane, measured, and at 95 mm; and thus, I reamed with the step drill to 95 mm; then, used the 75 mm cephalic portion of the construct to place up to the center of the femoral neck into the head. I then tightened the proximal locking screw and then backed off by half of a turn because we wanted this femoral neck fracture to settle a bit into position, basically the sliding construct. I then used the triple drill guide for the interlock screw distally. I made a small wil in the skin and advanced against the lateral femoral cortex. Then, used the drill and measured off the drill and used a 34 mm screw and placed that across the elier. At this point, all the insertion instruments were removed, and we got final x-rays in the AP and lateral planes and the entire construct and the fracture. Everything appeared to be in good position. I then copiously irrigated the wound proximally, closed the deep tensor fascia with a single #1 polydioxanone suture (PDS) suture. The subdermal tissues closed with interrupted 2-0 PDS sutures. The skin was closed with papi, as were the distal incisions closed after irrigating, with papi and one 2-0 PDS suture. Adaptic dry sterile bulky dressing was applied. She was then taken out of traction and transferred to her bed in stable condition. There were no intraoperative complications.
[2017-03-22 14:00] VITALS: BP 132/63
[2017-03-22 14:05] LABS: MEAN CORPUSCULAR HEMOGLOBIN 34.4 pg (27.0-33.0); MEAN CORPUSCULAR HGB CONC 33.8 g/dl (32.0-36.5); MEAN CORPUSCULAR VOLUME 101.7 fl (80.0-96.0); RED CELL DISTRIBUTION WIDTH 14.7 % (11.5-14.5); WHITE BLOOD COUNT 9.4 K/mm3 (4.0-10.0)
[2017-03-22 22:00] VITALS: BP 134/64
[2017-03-23] MEDS: PERCOCET 5MG/325MG TAB PO PRN ×3 (01:04→13:06)
[2017-03-23 06:00] VITALS: BP 129/65
[2017-03-23] MEDS: HEPARIN SOD (PORCINE) 5000 UNITS/ML VIAL SC SCH ×2 (06:35→13:06)
[2017-03-23 06:56] LABS: MEAN CORPUSCULAR HEMOGLOBIN 33.6 pg (27.0-33.0); MEAN CORPUSCULAR HGB CONC 32.4 g/dl (32.0-36.5); MEAN CORPUSCULAR VOLUME 103.7 fl (80.0-96.0); WHITE BLOOD COUNT 8.4 K/mm3 (4.0-10.0)
[2017-03-23 07:01] LABS: INR 2.85
[2017-03-23 07:13] LABS: ANION GAP 7 MEQ/L (8-16); CALCIUM LEVEL 8.1 MG/DL (8.8-10.2); CARBON DIOXIDE LEVEL 27 MEQ/L (21-32); CHLORIDE LEVEL 104 MEQ/L (98-107); CREATININE FOR GFR 0.52 MG/DL (0.55-1.02); GLOMERULAR FILTRATION RATE > 60.0 (>45); GLUCOSE, FASTING 98 MG/DL (80-110); POTASSIUM SERUM 4.1 MEQ/L (3.5-5.1); SODIUM LEVEL 138 MEQ/L (136-145)
[2017-03-23 07:21] LABS: BLOOD UREA NITROGEN 4 MG/DL (7-18)
[2017-03-23] MEDS ORDERED: PERC5TAB12 PO (08:50)
[2017-03-23] MEDS: SENOKOT S TAB PO SCH (10:11)
[2017-03-23] MEDS: MOM 30ML SUSPENSION UDC PO SCH (10:11)
[2017-03-23] MEDS: MIRALAX *UNIT DOSE* 17GM PACKET PO SCH (10:11)
[2017-03-23] MEDS: BACTRIM 160MG/800MG DS TAB PO SCH (10:11)
[2017-03-23 10:12] VITALS: BP 129/65
[2017-03-23] MEDS: METOPROLOL SUCC *XL* 12.5MG PER 1/2 TAB (TopROL *XL*) PO SCH (10:12)
[2017-03-23] MEDS ORDERED: PANT40TA2 PO (10:25)
[2017-03-23] MEDS ORDERED: NICO14PA TD (10:25)
[2017-03-23] MEDS ORDERED: ATOR1TAB19 PO (10:25)
[2017-03-23] MEDS ORDERED: METO1TAB32 PO (10:25)
--- NOTE | 2017-03-23 18:35 | DSES ---
DATE OF ADMISSION: 03/19/2017 DATE OF DISCHARGE: 03/23/2017 ATTENDING PHYSICIAN: Dr. Bernardino Chandra DICTATED BY: Dr. Bernardino Chandra PRIMARY CARE PHYSICIAN: Unknown REFERRING PHYSICIAN: None. CONSULTING PHYSICIAN: Dr. Isai Schumacher CONDITION ON DISCHARGE: Stable. FINAL DIAGNOSIS: Right hip pain secondary to right intertrochanteric fracture of femur status post open reduction internal fixation. PROCEDURES: Open reduction internal fixation of right intertrochanteric fracture of femur, done on 03/22/2017. HISTORY OF THE PRESENT ILLNESS: The patient is a 66-year-old female with a past medical history of deep vein thrombosis (DVT), status post Coumadin, dyslipidemia, hypertension and psoriasis, who presented to the emergency room after she had tripped at home and had hip pain. She was found to have a hip fracture when she came to the emergency room. She uses a walker at baseline. She was admitted to the hospitalist service and had an orthopedic correction on 03/20/2017. HOSPITAL COURSE: 1. Right hip pain secondary to intertrochanteric fracture of femur, status post open reduction internal fixation. Continues to work with physical therapy, will be transitioned to physical medicine and rehabilitation (PM and R). Continue with anticoagulation and pain control as per orthopedic team. 2. Morse malposition. Noted to have some hematuria upon removal of Morse. However, continues to make urine and no reported hematuria thus far. Continue with bladder scans. 3. Status post hypokalemia. 4. Macrocytic anemia, acutely lower than baseline. However, likely dilutional. Hemoglobin has remained stable over the last 48 hours. 5. History of deep vein thrombosis (DVT), status post Coumadin for 1 year. Currently on Coumadin for DVT prophylaxis. 6. Hypertension. Blood pressure remains well controlled. Continue with metoprolol succinate. 7. Dyslipidemia. Will give low dose atorvastatin. 8. Psoriasis. Not on any medications. 9. Nicotine dependence. Continue with nicotine patch. 10. DVT prophylaxis. As per orthopedic team. DISCHARGE MEDICATIONS: The patient has been discharged to physical medicine and rehabilitation with the following medication list: - atorvastatin 10 mg by mouth daily - metoprolol succinate 12.5 mg by mouth daily - nicotine patch 14 mg every 24 hours transdermally as needed for nicotine withdrawal - Percocet 5/325 one to two tablets by mouth every 4 hours as needed for pain - Protonix 40 mg by mouth daily - Tylenol 500 mg by mouth as needed for pain DISCHARGE INSTRUCTIONS: Patient has been advised to followup with her primary care provider and orthopedic surgeon within the next 7 days. She has been advised to remain compliant with treatment plan and medications and medications and return to the emergency room if she experiences any problems. TIME SPENT ON DISCHARGE: Greater than 35 minutes.
[2017-06-23] MEDS ORDERED: MULT1TAB10 PO (10:13)
[2017-06-23] MEDS ORDERED: VITA100067 PO (10:13)
== END 2017-03-23 15:00 | DRG 482 ==
LOC: M ED 10:09 → M ED INP 12:56 → M PCU 16:54 → M MS5PR 03-21 14:20
PROVIDERS: ADMIT Internal Medicine; ATTEND Internal Medicine
PROC: 0QS604Z Reposition Right Upper Femur with Internal Fixation Device, Open Approach (ICD-10-PCS; principal; 2017-03-20 17:52)
DX: S72.141A Displaced intertrochanteric fracture of right femur, initial encounter for closed fracture (principal); T83.028A Displacement of other urinary catheter, initial encounter; I10 Essential (primary) hypertension; E78.5 Hyperlipidemia, unspecified; Z86.718 Personal history of other venous thrombosis and embolism; F17.200 Nicotine dependence, unspecified, uncomplicated; L40.8 Other psoriasis; E16.2 Hypoglycemia, unspecified; I73.9 Peripheral vascular disease, unspecified; Z88.0 Allergy status to penicillin; Z88.8 Allergy status to other drugs, medicaments and biological substances; E87.6 Hypokalemia; D53.9 Nutritional anemia, unspecified; R31.9 Hematuria, unspecified; Z79.899 Other long term (current) drug therapy; W18.30XA Fall on same level, unspecified, initial encounter; Y92.009 Unspecified place in unspecified non-institutional (private) residence as the place of occurrence of the external cause

== ENCOUNTER 2017-03-23 13:05 | Inpatient (IN) | payer MEDICARE, MEDICAID ==
[~2017-03-23] VITALS: Ht 157.5 cm; Wt 72.6 kg
[~2017-03-23 13:05] MED LIST changes: +ACET50TAOT PO; +ATOR1TAB19 PO; +METO1TAB32 PO; +METOPROLOL SUCC *XL* 25MG TAB (TopROL *XL*) PO SCH; +NICO14PA TD; +PANT40TA2 PO; +PERC5TAB12 PO
[2017-03-23 14:50] VITALS: BP 132/70
[2017-03-23] MEDS ORDERED: PERCOCET 5MG/325MG TAB PO PRN (16:00)
[2017-03-23] MEDS ORDERED: MIRALAX *UNIT DOSE* 17GM PACKET PO PRN (16:00)
[2017-03-23] MEDS ORDERED: BISACODYL 5 MG TAB PO PRN (16:00)
[2017-03-23] MEDS ORDERED: MOM 30ML SUSPENSION UDC PO PRN (16:00)
[2017-03-23] MEDS ORDERED: ONDANSETRON 4 MG ORAL DISINTEGRATING TAB (S0181) SL PRN (16:00)
[2017-03-23] MEDS: PERCOCET 5MG/325MG TAB PO PRN ×2 (17:18→21:25)
[2017-03-23] MEDS: PANTOPRAZOLE 40MG TAB (PROTONIX) PO SCH (17:18)
[2017-03-23] MEDS: NICOTINE 14 MG/24 HR TRANSDERMAL TD SCH (18:06)
[2017-03-23 19:45] VITALS: BP 124/60
[2017-03-23] MEDS: SENOKOT S TAB PO SCH (19:45)
[2017-03-23] MEDS: BACTRIM 160MG/800MG DS TAB PO SCH (20:07)
--- NOTE | 2017-03-23 20:53 | PMRNOTEPD ---
PMR Note 66-year-old white female status post right intertrochanteric hip fracture secondary to follow-up home on 03/19/17 with open reduction internal fixation on needs to regain modified independence with adaptive mobility as she is partial weightbearing to return home. Patient with prior DVT problems and notable peripheral vascular disease will need ongoing management. Some elements rationing patient's [place] and reliability as a historian have been raised and consideration for cognitive evaluation will be considered along with ongoing treatment of hypertension and an Escherichia coli urinary tract infection. Medicine and orthopedic consultations have been made. Patient to participate in reactors of therapy per day with physical and occupational therapy along with ongoing care and management by rehabilitation nursing, physiatry, orthopedics and medicine services. Patient is right-handed. Of important note patient also with stage II sacral decubitus on admission is to be Off of that lesion and out of semireclining positions that creates sacral shear. H&P dictation #[id number]. AMERICO HARMAN MD Mar 23, 2017 20:53
[2017-03-24] MEDS: PERCOCET 5MG/325MG TAB PO PRN ×6 (02:21→23:38)
[2017-03-24 06:00] VITALS: BP 134/69
[2017-03-24 06:46] LABS: BASO % 0.2 % (0.0-1.0); EOS # 0.1 K/mm3 (0.0-0.50); EOS % 1.6 % (0.0-3.0); LARGE UNSTAINED CELL # 0.1 K/mm3 (0.0-0.4); LARGE UNSTAINED CELL % 1.1 % (0.0-4.0); LYMPH # 0.8 K/mm3 (1.5-4.5); LYMPH % 10.5 % (24.0-44.0); MEAN CORPUSCULAR HEMOGLOBIN 33.4 pg (27.0-33.0); MEAN CORPUSCULAR HGB CONC 32.1 g/dl (32.0-36.5); MEAN CORPUSCULAR VOLUME 103.8 fl (80.0-96.0); MONO # 0.5 K/mm3 (0.0-0.8); MONO % 6.8 % (0.0-5.0); NEUTROPHILS # 5.5 K/mm3 (1.8-7.7); NEUTROPHILS % 79.7 % (36.0-66.0); PLATELET COUNT, AUTOMATED 395 k/mm3 (150-450); RED CELL DISTRIBUTION WIDTH 15.1 % (11.5-14.5); WHITE BLOOD COUNT 6.9 K/mm3 (4.0-10.0)
[2017-03-24 06:57] LABS: INR 3.59
[2017-03-24 07:02] LABS: ALBUMIN/GLOBULIN RATIO 0.56 (1.00-1.93); ALKALINE PHOSPHATASE 90 U/L (45-117); ALT/SGPT 16 U/L (12-78); ANION GAP 7 MEQ/L (8-16); AST/SGOT 14 U/L (15-37); BILIRUBIN,TOTAL 0.6 MG/DL (0.2-1.0); BLOOD UREA NITROGEN 3 MG/DL (7-18); CALCIUM LEVEL 7.8 MG/DL (8.8-10.2); CARBON DIOXIDE LEVEL 27 MEQ/L (21-32); CHLORIDE LEVEL 106 MEQ/L (98-107); CREATININE FOR GFR 0.44 MG/DL (0.55-1.02); GLOMERULAR FILTRATION RATE > 60.0 (>45); GLUCOSE, FASTING 84 MG/DL (80-110); POTASSIUM SERUM 4.4 MEQ/L (3.5-5.1); SODIUM LEVEL 140 MEQ/L (136-145); TOTAL PROTEIN 5.6 GM/DL (6.4-8.2)
[2017-03-24] MEDS: SENOKOT S TAB PO SCH ×2 (07:10→20:31)
[2017-03-24] MEDS: BACTRIM 160MG/800MG DS TAB PO SCH ×2 (07:34→20:30)
[2017-03-24] MEDS: PANTOPRAZOLE 40MG TAB (PROTONIX) PO SCH (07:34)
[2017-03-24] MEDS: NICOTINE 14 MG/24 HR TRANSDERMAL TD SCH (07:35)
[2017-03-24] MEDS: METOPROLOL SUCC *XL* 12.5MG PER 1/2 TAB (TopROL *XL*) PO SCH (07:35)
--- NOTE | 2017-03-24 12:37 | IPNPDOC ---
Date Seen The patient was seen on 03/24/17. Progress Note HPI: 66year oldF S/P mechanical fall with Rt hip fracture s/p ORIF as per Orthopedics transferred to ARU as per Dr Couch 03/23/17. No acute medical complaints today. Denies any fevers, chills, weakness, fatigue , Headache, Chest Pain, Shortness of breath, cough, palpitations, abdominal pain , N/V/D or changes in bowel or bladder habits. Requested to follow for medical management. PMHx: Mechanical fall h/o left hip fracture unsteady gait. Ambulates with walker H/O DVT 2014. HTN HLD psoriasis GERD PSHX: Left hip ORIF C section PE: GEN: 66yoF, appears stated age. Well-nourished, well developed. No acute distress. Alert and oriented x 3. Pleasant, interactive. HEENT: Normocephalic, atraumatic. Sclera are nonicteric. Conjunctiva without injection. Nose midline. No facial asymmetry. Moist mucous membranes. Dentition fair. Pharynx pink and moist, no cobblestoning. Neck supple, trachea midline. No lymphadenopathy or thyromegaly appreciated. CHEST: Regular rate and rhythm, +S1, +S2 LUNGS: Clear to auscultation bilaterally. No wheezes, rales, or rhonchi. Breathing appears symmetric and easy. Patient is speaking in full sentences. No accessory muscle use. ABD: Round, soft, non-tender, non-distended. +Bowel sounds throughout. No rebound or guarding. No costovertebral angle tenderness. EXT: Pulses 2+ bilaterally dorsalis pedis and radial. No lower extremity edema appreciated. SKIN: [place], dry, warm. Capillary refill <2sec. No rashes. NEURO: No focal deficits appreciated. A&P: 66year oldF S/P mechanical fall with Rt hip fracture s/p ORIF as per Orthopedics transferred to ARU as per Dr Couch 03/23/17. 1. Mechanical Fall/Rt hip fracture/Rt hip ORIF. Mgmt as per ARU PT/OT as per Dr Couch. Pain control as per Dr Couch. Bowel care as per Dr Couch. Anticoagulation. Coumadin as per Orthopedics. 2. UTI. E coli. po Bactrim D4 3. Anemia. baseline appears to be 11-12 Check Fe studies/B12/folate. Check Stool OB. Pt states she has declined Colonoscopy. 4. H/O DVT 2015/DVT prophylaxis. Coumadin managed currently as per orthopedics 5. HTN. Continue metoprolol. 6. HLD. Continue statin. Outpt F/U. 7. GERD. Continue Protonix. VS, I&O, 24H, Fishbone Vital Signs/I&O Vital Signs Date Time Temp Pulse Resp B/P (MAP) Pulse Ox O2 Delivery O2 Flow Rate FiO2 03/24/17 11:02 18 03/24/17 07:35 114 135/69 03/24/17 07:35 Room Air 03/24/17 06:00 98.4 95 I&O- Last 24 Hours up to 6 AM 03/24/17 06:00 Intake Total 240 ml Output Total 575 ml Balance -335 ml Laboratory Data 24H LABS Laboratory Tests 2 03/24/17 06:26: White Blood Count 6.9, Red Blood Count 2.69L, Hemoglobin 9.0L, Hematocrit 28.0L , Mean Corpuscular Volume 103.8H, Mean Corpuscular Hemoglobin 33.4H, Mean Corpuscular Hemoglobin Concent 32.1, Red Cell Distribution Width 15.1H, Platelet Count 395, Neutrophils (%) (Auto) 79.7H, Lymphocytes (%) (Auto) 10.5L, Monocytes (%) (Auto) 6.8H, Eosinophils (%) (Auto) 1.6, Basophils (%) (Auto) 0.2 , Neutrophils # (Auto) 5.5, Lymphocytes # (Auto) 0.8L, Monocytes # (Auto) 0.5, Eosinophils # (Auto) 0.1, Basophils # (Auto) 0.0, Large Unclassified Cells % 1.1 , Large Unclassified Cells # 0.1, Prothrombin Time 37.6H, Prothromb Time International Ratio 3.59, Anion Gap 7L, Glomerular Filtration Rate > 60.0, Blood Urea Nitrogen 3L, Creatinine 0.44L, Sodium Level 140, Potassium Level 4.4 , Chloride Level 106, Carbon Dioxide Level 27, Calcium Level 7.8L, Aspartate Amino Transf (AST/SGOT) 14L, Alanine Aminotransferase (ALT/SGPT) 16, Alkaline Phosphatase 90, Total Bilirubin 0.6, Total Protein 5.6L, Albumin 2.0L, Albumin/ Globulin Ratio 0.56L CBC/BMP Laboratory Tests 03/24/17 06:26 Red Blood Count 2.69 L, Mean Corpuscular Volume 103.8 H, Mean Corpuscular Hemoglobin 33.4 H, Mean Corpuscular Hemoglobin Concent 32.1, Red Cell Distribution Width 15.1 H, Neutrophils (%) (Auto) 79.7 H, Lymphocytes (%) (Auto ) 10.5 L, Monocytes (%) (Auto) 6.8 H, Eosinophils (%) (Auto) 1.6, Basophils (%) (Auto) 0.2, Neutrophils # (Auto) 5.5, Lymphocytes # (Auto) 0.8 L, Monocytes # ( Auto) 0.5, Eosinophils # (Auto) 0.1, Basophils # (Auto) 0.0, Calcium Level 7.8 L , Aspartate Amino Transf (AST/SGOT) 14 L, Alanine Aminotransferase (ALT/SGPT) 16 , Alkaline Phosphatase 90, Total Bilirubin 0.6, Total Protein 5.6 L, Albumin 2.0 L Farzana Lambert Mar 24, 2017 12:37
--- NOTE | 2017-03-24 12:58 | IPNPDOC ---
[facility] Progress Note DATE OF SERVICE: 03/24/17 DATE OF ADMISSION: Mar 23, 2017 at 14:50 INPATIENT REHABILITATION ADMISSION DAY: #2 SUBJECTIVE: Patient is a 66-year-old white female status post right intertrochanteric hip fracture secondary to fall at home on 03/19/17. She was treated with open reduction internal fixation on 03/20/17 and needs to regain modified independence with adaptive mobility as she is partial weightbearing to return home. Patient with prior DVT problems and notable peripheral vascular disease will need ongoing management. 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 Patient is right-handed. Of important note patient also with stage II sacral decubitus on admission is to be Off of that lesion and out of semi-reclining positions that creates sacral shear. ALLERGIES: See Below MEDICATIONS: Reviewed, see below. OBJECTIVE: VITAL SIGNS: Please see below. PHYSICAL EXAMINATION: GENERAL: Obese late middle-age white female in mild musculoskeletal distress favoring right hip. Patient is alert and well oriented. HEENT: Normocephalic/atraumatic. CARDIOVASCULAR: Regular rate and rhythm with normal S1 and S2. 2/4 bilateral radial pulses. LUNGS: All lanier clear to auscultation. ABDOMEN: Obese with normal bowel sounds in all quadrants. NEUROLOGICAL: Alert and oriented 4. Affect is pleasant and cooperative. Motor shows good full strength in bilateral upper and lower extremities except for right hip guarding. SKIN: Patient with old healed sacral decubitus and now a small stage II sacral decubitus. Right hip incision line without drainage, heat, significant edema and only a little ecchymosis with intact foam dressing in place. LABORATORY DATA: Reviewed. Please see below. MICROBIOLOGY: Please see below. IMAGING: No new imaging. DVT prophylaxis ordered?: Patient on Coumadin with elevated INR of 3.59. Coumadin held for today and patient using MI hose. ASSESSMENT AND PLAN: 1. Rehabilitation of right hip fracture status post open reduction internal fixation. Patient working with physical occupational therapy and mobilities ADLs and walker management using partial weightbearing on the right lower extremity. For now I will not order speech therapy but we'll review how patient is doing with the physical and occupational therapist as regards learning adaptive techniques. The patient is having difficulty I will go ahead and have speech I which pathology doing assessment. 2. Anemia: Patient with moderate anemia with an H&H of 9.0 and 28.0%. We will continue observe this along with vital signs in this patient to tensor run heart rate in the 90s and easily with activity goes up in the 100s. 3. Sacral decubitus: We'll try and keep patient out of sacral shear positions and work to improve nutrition to help with skin healing. Currently patient is hypoalbuminemic with albumin of 2.0. TIME SPENT: Chart Review, examination and documentation required greater than 25 minutes. Allergies Coded Allergies: Penicillins (Verified Allergy, Severe, THROAT CLOSES,RASH, 08/29/16) Aspirin (Verified Allergy, Unknown, HIVES, 11/21/12) Iron (Verified Allergy, Unknown, FLU-LIKE SYMPTOMS, 11/21/12) Vital Signs Vital Signs Date Time Temp Pulse Resp B/P (MAP) Pulse Ox O2 Delivery O2 Flow Rate FiO2 03/24/17 11:02 18 03/24/17 07:35 114 135/69 03/24/17 07:35 Room Air 03/24/17 06:00 98.4 95 Laboratory Data CBC/BMP Laboratory Tests 03/24/17 06:26 Red Blood Count 2.69 L, Mean Corpuscular Volume 103.8 H, Mean Corpuscular Hemoglobin 33.4 H, Mean Corpuscular Hemoglobin Concent 32.1, Red Cell Distribution Width 15.1 H, Neutrophils (%) (Auto) 79.7 H, Lymphocytes (%) (Auto ) 10.5 L, Monocytes (%) (Auto) 6.8 H, Eosinophils (%) (Auto) 1.6, Basophils (%) (Auto) 0.2, Neutrophils # (Auto) 5.5, Lymphocytes # (Auto) 0.8 L, Monocytes # ( Auto) 0.5, Eosinophils # (Auto) 0.1, Basophils # (Auto) 0.0, Calcium Level 7.8 L , Aspartate Amino Transf (AST/SGOT) 14 L, Alanine Aminotransferase (ALT/SGPT) 16 , Alkaline Phosphatase 90, Total Bilirubin 0.6, Total Protein 5.6 L, Albumin 2.0 L Labs 24H Laboratory Tests 2 03/24/17 06:26: White Blood Count 6.9, Red Blood Count 2.69L, Hemoglobin 9.0L, Hematocrit 28.0L , Mean Corpuscular Volume 103.8H, Mean Corpuscular Hemoglobin 33.4H, Mean Corpuscular Hemoglobin Concent 32.1, Red Cell Distribution Width 15.1H, Platelet Count 395, Neutrophils (%) (Auto) 79.7H, Lymphocytes (%) (Auto) 10.5L, Monocytes (%) (Auto) 6.8H, Eosinophils (%) (Auto) 1.6, Basophils (%) (Auto) 0.2 , Neutrophils # (Auto) 5.5, Lymphocytes # (Auto) 0.8L, Monocytes # (Auto) 0.5, Eosinophils # (Auto) 0.1, Basophils # (Auto) 0.0, Large Unclassified Cells % 1.1 , Large Unclassified Cells # 0.1, Prothrombin Time 37.6H, Prothromb Time International Ratio 3.59, Anion Gap 7L, Glomerular Filtration Rate > 60.0, Blood Urea Nitrogen 3L, Creatinine 0.44L, Sodium Level 140, Potassium Level 4.4 , Chloride Level 106, Carbon Dioxide Level 27, Calcium Level 7.8L, Aspartate Amino Transf (AST/SGOT) 14L, Alanine Aminotransferase (ALT/SGPT) 16, Alkaline Phosphatase 90, Total Bilirubin 0.6, Total Protein 5.6L, Albumin 2.0L, Albumin/ Globulin Ratio 0.56L Current Medications Current Medications Current Medications Atorvastatin Calcium (Lipitor) 10 mg DAILY PO ; Start 03/24/17 at 09:00; Stop 04/23/17 at 08:59 Bisacodyl (Dulcolax Tab) 5 mg DAILYPRN PRN PO CONSTIPATION; Start 03/23/17 at 16 :00; Stop 04/22/17 at 15:59 Magnesium Hydroxide (Milk Of Magnesia) 30 ml DAILYPRN PRN PO CONSTIPATION; Start 03/23/17 at 16:00; Stop 04/22/17 at 15:59 Metoprolol Succinate (TopROL XL) 12.5 mg DAILY PO ; Start 03/23/17 at 09:00; Stop 03/23/17 at 16:11; Status DC Metoprolol Succinate (TopROL XL) 12.5 mg DAILY PO Last administered on t 07:35; Start 03/23/17 at 16:11; Stop 04/22/17 at 08:59 Nicotine (Nicoderm Cq 14mg) 1 patch DAILY TD Last administered on 03/24/17 07: 35; Start 03/23/17 at 09:00; Stop 03/26/17 at 08:59 Nicotine (Nicoderm Cq 7 Mg) 1 patch DAILY TD ; Start 03/26/17 at 09:00; Stop at 08:59 Ondansetron HCl (Zofran Odt) 4 mg Q6HP PRN SL NAUSEA OR VOMITING; Start at 16:00; Stop 03/26/17 at 23:55 Oxycodone/ Acetaminophen (Percocet 5mg/ 325mg Tablet) 1 tab Q4HP PRN PO PAIN SCALE 1-5; Start 03/23/17 at 16:00; Stop 03/30/17 at 15:59 Oxycodone/ Acetaminophen (Percocet 5mg/ 325mg Tablet) 2 tab Q4HP PRN PO PAIN SCALE 6-10 Last administered on 03/24/17 10:27; Start 03/23/17 at 16:00; Stop at 15:59 Pantoprazole Sodium (Protonix) 40 mg DAILY PO Last administered on 03/24/17 07: 34; Start 03/23/17 at 09:00; Stop 04/22/17 at 08:59 Polyethylene Glycol (Miralax) 1 pkt DAILY PRN PO CONSTIPATION; Start 03/23/17 at 16:00; Stop 04/22/17 at 15:59 Senna/Docusate Sodium (Senokot S) 1 tab BID PO ; Start 03/23/17 at 21:00; Stop at 20:59 Trimethoprim/ Sulfamethoxazole (Bactrim Ds, Septra Ds 160mg/ 800mg) 1 tab BID PO Last administered on 03/24/17 07:34; Start 03/23/17 at 21:00; Stop 03/29/17 at 05:55 AMERICO HARMAN MD Mar 24, 2017 12:58
[2017-03-24] MEDS: ATORVASTATIN 10 MG TAB PO SCH (13:25)
[2017-03-24 14:00] VITALS: BP 130/65
[2017-03-24 14:39] LABS: FOLATE 8.6 NG/ML (>5.4)
--- NOTE | 2017-03-24 15:05 | PMRHPE ---
DATE OF ADMISSION: 03/23/2017 REASON FOR ADMISSION: Rehabilitation of right hip fracture secondary to fall causing right intertrochanteric hip fracture. Patient is status post, 03/20/2017, open reduction, internal fixation (ORIF) with cephalomedullary implant using trochanteric femoral nail right hip after fall and fracture on 03/19/2017. HISTORY OF PRESENT ILLNESS: Patient is a 66-year-old white female who tripped on a rug in her home in [place], [place] in front of the kitchen sink, landing on her right hip and was unable to ambulate and was brought to [facility] and was found to have sustained a right hip fracture. There was no loss of consciousness, but pain and soreness in the right hip in this 66-year-old white female who is right handed. The patient had previously sustained a left hip fracture and open reduction, internal fixation (ORIF) by Dr. Wang in 2008 with hardware removal in 2011. She has notable atherosclerotic cardiovascular history, including peripheral vascular disease, status post left aortofemoral bypass and stent grafting with Dr. Wing several years ago and has been on blood thinner initially for that; however, it has been discontinued from Coumadin for about 2 years. In that time, she has also developed a deep vein thrombosis (DVT ) in the left calf. The patient, after surgery on 03/20/2017, has done fairly well in physical and occupational therapy and is felt to be able to participate and benefit from acute intensive rehabilitation and was evaluated for the acute rehabilitation unit today and accepted for a trial of rehabilitation. PAST MEDICAL HISTORY: Includes: 1. Two hip fractures from falls (Left in 2008 and now Right). 2. Atherosclerotic cardiovascular disease, including peripheral vascular disease with stents and grafting. 3. Prior deep vein thrombosis (DVT). 4. Cellulitis in both lower extremities secondary to peripheral vascular disease. 5. Hypertension. 6. Hyperlipidemia. 7. History of psoriasis, she denies any arthritis related to it. PAST SURGICAL HISTORY: Includes: 1. Aortofemoral bypass graft. 2. Left hip fracture open reduction, internal fixation (ORIF) with hardware removal, as noted above. MEDICATIONS: The patient was just on Tylenol prior to this event; however, today, current medications are: - Dulcolax tablet as needed for constipation - Senokot S one tablet twice a day for bowel regimen - metoprolol succinate 12.5 mg daily for hypertension - milk of magnesia 30 mL as needed for constipation - Nicoderm patch daily to complete two more days and then transition for a week to the 7 mg per 24 hour patch and then off - Zofran 4 mg sublingual every 6 hours as needed for severe nausea and vomiting - Percocet 5/325 mg one tablet every 4 hours as needed for mild to moderate pain - Percocet 5/325 mg two tablets every 4 hours as needed for moderate to severe pain - omeprazole 40 mg daily - MiraLAX one packet daily for bowel program - Trimethoprim sulfamethoxazole for Escherichia (E) coli urinary tract infection to complete course of 160/800 mg twice a day over the next 3 days ALLERGIES: The patient is allergic to ASPIRIN, IRON and PENICILLIN. FAMILY HISTORY: Noncontributory. SOCIAL HISTORY: The patient used to smoke but has not been smoking for a while but using E-cigarette. She is . It appears that she does live with her daughter, but it is noted in the chart that she lives alone. She does drink occasional alcohol but denies any abuse history. 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 She was ambulating with a walker prior to this fall and injury. REVIEW OF SYSTEMS: Includes hip pain and some arthritis pain and stiffness. PHYSICAL EXAMINATION: Patient is average height, 72.6 kg, late middle aged white female, who is alert, well oriented and pleasant. VITAL SIGNS: Temperature of 97.5, blood pressure 124/60, pulse 94, respirations 18, pulse oximetry 96% on room air. HEENT: Normocephalic, atraumatic. Extraocular motions are intact. NECK: Supple. LUNGS: Good air movement and normal breath sounds in all lanier with no wheezes, rales or rhonchi. CORONARY: Shows a regular rate and rhythm with normal S1, S2 without S3, S4 murmurs or rubs. The patient has 2/4 bilateral radial pulses. ABDOMEN: Obese and nontender with normal bowel sounds in all quadrants. Patient has an old healed sacral decubitus and she does have a new right sided stage II sacral decubitus approximately 3 cm diameter and skin break of an oval 1.5 x 0.7 cm area. The patient is encouraged to avoid staying in chair positions on this. The patient has old cords in the left calf. Functional range of motion in the bilateral upper and lower extremities except for right hip limited by guarding. She does have an Optifoam dressing over this incision site and it does show some ecchymosis working its way to the skin but no drainage or inflammation. NEUROLOGIC: Patient is alert and oriented times four. Speech is clear, coherent. Affect is pleasant and cooperative. Memory is fair to good. Motor with 5- bilateral upper extremity strength and 5/5 on the left lower extremity. There is functional guarding of the right hip with limited motion of the right lower extremity on testing. Light touch and vibration are intact to bilateral upper and lower extremities. Deep tendon reflexes show 2/4 biceps, brachial radialis, 1/4 triceps, 2/4 knee jerks, 1/4 ankle jerks, equivocal plantar stimulation. LABORATORY DATA: Show moderate anemia with hemoglobin 9.3, hematocrit 28.6 with elevated MCV of 103.7 and platelets normal, as is white blood cell count at 355,000 and 8.4 thousand, respectively. Chemistry shows normal electrolytes and BUN and creatinine are not elevated. Calcium is reduced at 8.1. Coag for this patient who has been on Coumadin shows an INR of 2.85, target being 1.7 to 2.0 for deep vein thrombosis (DVT) prophylaxis. Microbiology on 03/19/2017 shows the patient with Escherichia (E) coli sensitive to all tested antibiotics and for which he is on Bactrim DS twice a day. X-rays show good postoperative alignment of the hip. ASSESSMENT/PLAN: 1. Rehabilitation of right hip fracture, status post open reduction, internal fixation (ORIF). The patient, who has reported living alone, does appear to share her home with her daughter, per other records. She does need to be functioning at a modified independence level to return home. She is partial weight bearing on the right lower extremity and will have to learn adaptive mobility and activities of daily livings, probably using a walker initially, also wheelchair training. Her recovery is complicated by the vascular status and does appear that she will need physical and occupational therapy for this training and probable about 2 weeks admission. 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 If this or her reliability appear compromised, I will have speech language pathology do a cognitive assessment on this pleasant lady. 2. Atherosclerotic cardiovascular disease, with hypertension, hyperlipidemia, peripheral vascular disease, prior DVT. We will go ahead and continue patient on the Coumadin. At this time, she is anticoagulated above target and I will not be continuing any more of the heparin for vascular or deep vein thrombosis (DVT) purposes, but we will continue the metoprolol succinate for blood pressure control. 3. E coli urinary tract infection (UTI). We will complete treatment for a 7 day course of Bactrim and see how the patient is doing with this. 4. Tobacco dependence/e-cigarette dependent. The patient will complete nicotine management, one week of Nicoderm CQ 14 mg per 24 hours and then one week on Nicoderm CQ 7 mg for 24 hours and then discontinue. Current analgesics will include the Percocet, but I will look at feasibility of transitioning the patient down to tramadol or plain Tylenol as she tolerates. POSTADMISSION PHYSICIAN EVALUATION: Patient is a 66-year-old white female with her second hip fracture, now on the right, previously on the left, and does appear ready, willing and able to participate and benefit from 3 hours of therapy per day, but does have some complicating vascular problems, which we will need to follow, as well as the urinary tract infection. I do think that she can benefit from the acute intensive musculoskeletal rehabilitation and tolerate 3 hours of therapy per day and has a good prognosis for returning to living at home due to what appears to be a fairly independent to modified independent, as, per prior history, the patient does have someone around to help her. I anticipate an approximately length of stay of 14 days, but we will adjust this depending on the patient's progress in physical and occupational therapy. Time spent on chart review, history and physical, and documentation is greater than 70 minutes. REJI
[2017-03-24 15:48] LABS: PERCENT SATURATION 19.5 % (13.2-45.0)
[2017-03-24 20:00] VITALS: BP 138/72
[2017-03-25] MEDS: PERCOCET 5MG/325MG TAB PO PRN ×5 (03:43→21:30)
[2017-03-25 06:00] VITALS: BP 143/70
[2017-03-25 07:02] LABS: MEAN CORPUSCULAR HEMOGLOBIN 34.1 pg (27.0-33.0); MEAN CORPUSCULAR VOLUME 103.5 fl (80.0-96.0); RED CELL DISTRIBUTION WIDTH 14.7 % (11.5-14.5); WHITE BLOOD COUNT 7.8 K/mm3 (4.0-10.0)
[2017-03-25 07:11] LABS: INR 2.51
[2017-03-25 07:16] LABS: ANION GAP 9 MEQ/L (8-16); BLOOD UREA NITROGEN 3 MG/DL (7-18); CALCIUM LEVEL 8.2 MG/DL (8.8-10.2); CARBON DIOXIDE LEVEL 25 MEQ/L (21-32); CHLORIDE LEVEL 107 MEQ/L (98-107); CREATININE FOR GFR 0.44 MG/DL (0.55-1.02); GLOMERULAR FILTRATION RATE > 60.0 (>45); GLUCOSE, FASTING 87 MG/DL (80-110); POTASSIUM SERUM 4.3 MEQ/L (3.5-5.1); SODIUM LEVEL 141 MEQ/L (136-145)
[2017-03-25] MEDS: NICOTINE 14 MG/24 HR TRANSDERMAL TD SCH (08:22)
[2017-03-25] MEDS: PANTOPRAZOLE 40MG TAB (PROTONIX) PO SCH (08:22)
[2017-03-25] MEDS: ATORVASTATIN 10 MG TAB PO SCH (08:22)
[2017-03-25] MEDS: METOPROLOL SUCC *XL* 12.5MG PER 1/2 TAB (TopROL *XL*) PO SCH (08:22)
[2017-03-25] MEDS: BACTRIM 160MG/800MG DS TAB PO SCH ×2 (08:22→20:46)
[2017-03-25] MEDS: SENOKOT S TAB PO SCH ×2 (08:23→20:46)
[2017-03-25] MEDS ORDERED: traMADol ER 100MG TABLET (ULTRAM ER) PO SCH (09:00)
--- NOTE | 2017-03-25 13:25 | IPNPDOC ---
Policy Manager Progress Note DATE OF SERVICE: 03/25/17 DATE OF ADMISSION: Mar 23, 2017 at 14:50 INPATIENT REHABILITATION ADMISSION DAY: #3 SUBJECTIVE: Patient is a 66-year-old white female status post right intertrochanteric hip fracture secondary to fall at home on 03/19/17. She was treated with open reduction internal fixation on 03/20/17 and needs to regain modified independence with adaptive mobility as she is partial weightbearing to return home. Patient with prior DVT problems and notable peripheral vascular disease will need ongoing management. 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 Patient is right-handed. Of important note patient also with stage II sacral decubitus on admission is to be Off of that lesion and out of semi-reclining positions that creates sacral shear. ALLERGIES: See Below MEDICATIONS: Reviewed, see below. OBJECTIVE: VITAL SIGNS: Please see below. PHYSICAL EXAMINATION: GENERAL: Obese late middle-age white female in mild musculoskeletal distress favoring right hip. Patient is alert and well oriented. HEENT: Normocephalic/atraumatic. CARDIOVASCULAR: Regular rate and rhythm with normal S1 and S2. 2/4 bilateral radial pulses. LUNGS: All lanier clear to auscultation. ABDOMEN: Obese with normal bowel sounds in all quadrants. NEUROLOGICAL: Alert and oriented 4. Affect is pleasant and cooperative. Motor shows good full strength in bilateral upper and lower extremities except for right hip guarding. SKIN: Patient with old healed sacral decubitus and now a small stage II sacral decubitus. Right hip incision line without drainage, heat, significant edema and only a little ecchymosis with intact foam dressing in place. LABORATORY DATA: Reviewed. Please see below. MICROBIOLOGY: Please see below. IMAGING: No new imaging. DVT prophylaxis ordered?: Patient on Coumadin with elevated INR of 2.51. Coumadin held for today and patient using MI hose. ASSESSMENT AND PLAN: 1. Rehabilitation of right hip fracture status post open reduction internal fixation: Patient working with physical occupational therapy and mobilities ADLs and walker management using partial weightbearing on the right lower extremity. Patient remains focused on pain and I will add am dose of Tramadol ER 200 mg to boost analgesia. We will watch for cognitive change with it. 2. Anemia: Patient with moderate anemia with an H&H of 9.1 and 27.80%. We will continue observe this along with vital signs in this patient to tensor run heart rate in the 90s and easily with activity goes up in the 100s. 3. Sacral decubitus: We'll try and keep patient out of sacral shear positions and work to improve nutrition to help with skin healing. Currently patient is hypoalbuminemic with albumin of 2.0. 4. E. coli UTI: Patient continues on ten day course of Bactrim DS bid. No fevers , but some urinary incontinence. TIME SPENT: Chart Review, examination and documentation required greater than 25 minutes. Allergies Coded Allergies: Penicillins (Verified Allergy, Severe, THROAT CLOSES,RASH, 08/29/16) Aspirin (Verified Allergy, Unknown, HIVES, 11/21/12) Iron (Verified Allergy, Unknown, FLU-LIKE SYMPTOMS, 11/21/12) Vital Signs Vital Signs Date Time Temp Pulse Resp B/P (MAP) Pulse Ox O2 Delivery O2 Flow Rate FiO2 03/25/17 12:48 18 03/25/17 09:00 Room Air 03/25/17 08:22 106 143/70 03/25/17 06:00 98.4 93 Laboratory Data CBC/BMP Laboratory Tests 03/25/17 06:37 Red Blood Count 2.68 L, Mean Corpuscular Volume 103.5 H, Mean Corpuscular Hemoglobin 34.1 H, Mean Corpuscular Hemoglobin Concent 33.0, Red Cell Distribution Width 14.7 H, Calcium Level 8.2 L Labs 24H Laboratory Tests 2 03/25/17 06:36: Prothrombin Time 28.1H, Prothromb Time International Ratio 2.51 03/25/17 06:37: Anion Gap 9, Glomerular Filtration Rate > 60.0, Blood Urea Nitrogen 3L, Creatinine 0.44L, Sodium Level 141, Potassium Level 4.3, Chloride Level 107, Carbon Dioxide Level 25, Calcium Level 8.2L Current Medications Current Medications Current Medications Atorvastatin Calcium (Lipitor) 10 mg DAILY PO Last administered on 03/25/17t 08: 22; Start 03/24/17 at 09:00; Stop 04/23/17 at 08:59 Bisacodyl (Dulcolax Tab) 5 mg DAILYPRN PRN PO CONSTIPATION; Start 03/23/17 at 16 :00; Stop 04/22/17 at 15:59 Magnesium Hydroxide (Milk Of Magnesia) 30 ml DAILYPRN PRN PO CONSTIPATION; Start 03/23/17 at 16:00; Stop 04/22/17 at 15:59 Metoprolol Succinate (TopROL XL) 12.5 mg DAILY PO ; Start 03/23/17 at 09:00; Stop 03/23/17 at 16:11; Status DC Metoprolol Succinate (TopROL XL) 12.5 mg DAILY PO Last administered on 08:22; Start 03/23/17 at 16:11; Stop 04/22/17 at 08:59 Nicotine (Nicoderm Cq 14mg) 1 patch DAILY TD Last administered on 03/25/17 08: 22; Start 03/23/17 at 09:00; Stop 03/26/17 at 08:59 Nicotine (Nicoderm Cq 7 Mg) 1 patch DAILY TD ; Start 03/26/17 at 09:00; Stop at 08:59 Ondansetron HCl (Zofran Odt) 4 mg Q6HP PRN SL NAUSEA OR VOMITING; Start at 16:00; Stop 03/26/17 at 23:55 Oxycodone/ Acetaminophen (Percocet 5mg/ 325mg Tablet) 1 tab Q4HP PRN PO PAIN SCALE 1-5; Start 03/23/17 at 16:00; Stop 03/30/17 at 15:59 Oxycodone/ Acetaminophen (Percocet 5mg/ 325mg Tablet) 2 tab Q4HP PRN PO PAIN SCALE 6-10 Last administered on 03/25/17 12:48; Start 03/23/17 at 16:00; Stop at 15:59 Pantoprazole Sodium (Protonix) 40 mg DAILY PO Last administered on 03/25/17 08: 22; Start 03/23/17 at 09:00; Stop 04/22/17 at 08:59 Polyethylene Glycol (Miralax) 1 pkt DAILY PRN PO CONSTIPATION; Start 03/23/17 at 16:00; Stop 04/22/17 at 15:59 Senna/Docusate Sodium (Senokot S) 1 tab BID PO ; Start 03/23/17 at 21:00; Stop at 20:59 Trimethoprim/ Sulfamethoxazole (Bactrim Ds, Septra Ds 160mg/ 800mg) 1 tab BID PO Last administered on 03/25/17t 08:22; Start 03/23/17 at 21:00; Stop 03/29/17 at 05:55 AMERICO HARMAN MD Mar 25, 2017 13:25
[2017-03-25 14:00] VITALS: BP 115/60
[2017-03-25 21:00] VITALS: BP 158/78
[2017-03-26] MEDS: PERCOCET 5MG/325MG TAB PO PRN ×4 (01:37→20:53)
[2017-03-26 06:00] VITALS: BP 143/70
[2017-03-26 08:04] LABS: MEAN CORPUSCULAR HEMOGLOBIN 33.8 pg (27.0-33.0); MEAN CORPUSCULAR VOLUME 105.7 fl (80.0-96.0); RED CELL DISTRIBUTION WIDTH 15.3 % (11.5-14.5); WHITE BLOOD COUNT 9.7 K/mm3 (4.0-10.0)
[2017-03-26 08:07] LABS: INR 2.9
[2017-03-26] MEDS ORDERED: traMADol ER 100MG TABLET (ULTRAM ER) PO SCH (09:00)
[2017-03-26] MEDS: PANTOPRAZOLE 40MG TAB (PROTONIX) PO SCH (09:52)
[2017-03-26] MEDS: BACTRIM 160MG/800MG DS TAB PO SCH ×2 (09:52→20:53)
[2017-03-26] MEDS: SENOKOT S TAB PO SCH ×2 (09:52→20:53)
[2017-03-26] MEDS: ATORVASTATIN 10 MG TAB PO SCH (09:52)
[2017-03-26] MEDS: METOPROLOL SUCC *XL* 12.5MG PER 1/2 TAB (TopROL *XL*) PO SCH (09:53)
[2017-03-26] MEDS: NICOTINE 7 MG/24 HR TRANSDERMAL TD SCH (09:53)
--- NOTE | 2017-03-26 12:11 | IPNPDOC ---
Date Seen The patient was seen on 03/26/17. Progress Note HPI: 66year oldF S/P mechanical fall with Rt hip fracture s/p ORIF as per Orthopedics transferred to ARU as per Dr Couch 03/23/17. No acute medical complaints today. Pt states she is feeling well. Denies any fevers, chills, weakness, fatigue, Headache, Chest Pain, Shortness of breath, cough, palpitations, abdominal pain, N/V/D or changes in bowel or bladder habits. Requested to follow for medical management. PMHx: Mechanical fall h/o left hip fracture unsteady gait. Ambulates with walker H/O DVT 2014. HTN HLD psoriasis GERD PSHX: Left hip ORIF C section PE: GEN: 66yoF, appears stated age. Well-nourished, well developed. No acute distress. Alert and oriented x 3. Pleasant, interactive. HEENT: Normocephalic, atraumatic. Sclera are nonicteric. Conjunctiva without injection. Nose midline. No facial asymmetry. Moist mucous membranes. Dentition fair. Pharynx pink and moist, no cobblestoning. Neck supple, trachea midline. No lymphadenopathy or thyromegaly appreciated. CHEST: Regular rate and rhythm, +S1, +S2 LUNGS: Clear to auscultation bilaterally. No wheezes, rales, or rhonchi. ABD: soft, non-tender, non-distended. +Bowel sounds throughout. EXT: Pulses 2+ bilaterally dorsalis pedis and radial. No lower extremity edema appreciated. SKIN: [place], dry, warm. Capillary refill <2sec. No rashes. NEURO: No focal deficits appreciated. A&P: 66year oldF S/P mechanical fall with Rt hip fracture s/p ORIF as per Orthopedics transferred to ARU as per Dr Couch 03/23/17. 1. Mechanical Fall/Rt hip fracture/Rt hip ORIF. Mgmt as per ARU PT/OT as per Dr Couch. Pain control as per Dr Couch. Bowel care as per Dr Couch. Anticoagulation. Coumadin as per Orthopedics. 2. UTI. E coli. po Bactrim D5 3. Anemia. baseline appears to be 11-12. Hgb with slight trend upward. Fe studies/B12/folate. Stool OB pending. Pt states she has declined Colonoscopy. 4. H/O DVT 2015/DVT prophylaxis. Coumadin managed currently as per orthopedics 5. HTN. Continue metoprolol. 6. HLD. Continue statin. Outpt F/U. 7. GERD. Continue Protonix. VS, I&O, 24H, Fishbone Vital Signs/I&O Vital Signs Date Time Temp Pulse Resp B/P (MAP) Pulse Ox O2 Delivery O2 Flow Rate FiO2 03/26/17 09:53 88 143/70 03/26/17 09:00 Room Air 03/26/17 06:30 18 03/26/17 06:00 97.9 92 I&O- Last 24 Hours up to 6 AM 03/26/17 06:00 Intake Total 1320 ml Output Total 1050 ml Balance 270 ml Laboratory Data 24H LABS Laboratory Tests 2 03/26/17 07:42: Prothrombin Time 31.6H, Prothromb Time International Ratio 2.90 CBC/BMP Laboratory Tests 03/26/17 07:42 Red Blood Count 2.96 L, Mean Corpuscular Volume 105.7 H, Mean Corpuscular Hemoglobin 33.8 H, Mean Corpuscular Hemoglobin Concent 32.0, Red Cell Distribution Width 15.3 H Farzana Lambert Mar 26, 2017 12:11
[2017-03-26 14:00] VITALS: BP 157/74
--- NOTE | 2017-03-26 14:33 | IPNPDOC ---
Mold Holder Progress Note DATE OF SERVICE: 03/26/17 DATE OF ADMISSION: Mar 23, 2017 at 14:50 INPATIENT REHABILITATION ADMISSION DAY: #4 SUBJECTIVE: Patient is a 66-year-old white female status post right intertrochanteric hip fracture secondary to fall at home on 03/19/17. She was treated with open reduction internal fixation on 03/20/17 and needs to regain modified independence with adaptive mobility as she is partial weightbearing to return home. Patient with prior DVT problems and notable peripheral vascular disease will need ongoing management. 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 Patient is right-handed. Of important note patient also with stage II sacral decubitus on admission is to be Off of that lesion and out of semi-reclining positions that creates sacral shear. ALLERGIES: See Below MEDICATIONS: Reviewed, see below. OBJECTIVE: VITAL SIGNS: Please see below. PHYSICAL EXAMINATION: GENERAL: Obese late middle-age white female in mild musculoskeletal distress favoring right hip. Patient is alert and well oriented. HEENT: Normocephalic/atraumatic. CARDIOVASCULAR: Regular rate and rhythm with normal S1 and S2. 2/4 bilateral radial pulses. LUNGS: All lanier clear to auscultation. ABDOMEN: Obese with normal bowel sounds in all quadrants. NEUROLOGICAL: Alert and oriented 4. Affect is pleasant and cooperative. Motor shows good full strength in bilateral upper and lower extremities except for right hip guarding. SKIN: Patient with old healed sacral decubitus and now a small stage II sacral decubitus. Right hip incision line without drainage, heat, significant edema and only a little ecchymosis with intact foam dressing in place. LABORATORY DATA: Reviewed. Please see below. MICROBIOLOGY: Please see below. IMAGING: No new imaging. DVT prophylaxis ordered?: Patient on Coumadin with elevated INR of 2.51. Coumadin held for today and patient using MI hose. ASSESSMENT AND PLAN: 1. Rehabilitation of right hip fracture status post open reduction internal fixation: Patient working with physical occupational therapy and mobilities ADLs and walker management using partial weightbearing on the right lower extremity (Orthopedics confirms it is 50% Partial Weight Bearing). Patient remains focused on pain and I added am dose of Tramadol ER 200 mg to boost analgesia, which seems to be helping a lot. We will watch for cognitive change with it. 2. Anemia: Patient with moderate anemia with an H&H of 10.0 and 31.3%. We will continue observe this along with vital signs in this patient to monitor heart rate in the 90s and easily with activity goes up in the 100s, showing poor cardiopulmonary tolerance. 3. Sacral decubitus: We'll try and keep patient out of sacral shear positions and work to improve nutrition to help with skin healing. Currently patient is hypoalbuminemic with albumin of 2.0. 4. E. coli UTI: Patient continues on ten day course of Bactrim DS bid. No fevers , but some urinary incontinence. TIME SPENT: Chart Review, examination and documentation required greater than 25 minutes. Allergies Coded Allergies: Penicillins (Verified Allergy, Severe, THROAT CLOSES,RASH, 08/29/16) Aspirin (Verified Allergy, Unknown, HIVES, 11/21/12) Iron (Verified Allergy, Unknown, FLU-LIKE SYMPTOMS, 11/21/12) Vital Signs Vital Signs Date Time Temp Pulse Resp B/P (MAP) Pulse Ox O2 Delivery O2 Flow Rate FiO2 03/26/17 14:00 97.9 83 20 157/74 (101) 96 Room Air Laboratory Data CBC/BMP Laboratory Tests 03/26/17 07:42 Red Blood Count 2.96 L, Mean Corpuscular Volume 105.7 H, Mean Corpuscular Hemoglobin 33.8 H, Mean Corpuscular Hemoglobin Concent 32.0, Red Cell Distribution Width 15.3 H Labs 24H Laboratory Tests 2 03/26/17 07:42: Prothrombin Time 31.6H, Prothromb Time International Ratio 2.90 Current Medications Current Medications Current Medications Atorvastatin Calcium (Lipitor) 10 mg DAILY PO Last administered on 03/26/17t 09 :52; Start 03/24/17 at 09:00; Stop 04/23/17 at 08:59 Bisacodyl (Dulcolax Tab) 5 mg DAILYPRN PRN PO CONSTIPATION; Start 03/23/17 at 16 :00; Stop 04/22/17 at 15:59 Magnesium Hydroxide (Milk Of Magnesia) 30 ml DAILYPRN PRN PO CONSTIPATION; Start 03/23/17 at 16:00; Stop 04/22/17 at 15:59 Methylphenidate HCl (Ritalin) 2.5 mg BID PO ; Start 03/26/17 at 21:00; Stop at 20:59 Metoprolol Succinate (TopROL XL) 12.5 mg DAILY PO ; Start 03/23/17 at 09:00; Stop 03/23/17 at 16:11; Status DC Metoprolol Succinate (TopROL XL) 12.5 mg DAILY PO Last administered on 09:53; Start 03/23/17 at 16:11; Stop 04/22/17 at 08:59 Nicotine (Nicoderm Cq 14mg) 1 patch DAILY TD Last administered on 03/25/17 08: 22; Start 03/23/17 at 09:00; Stop 03/26/17 at 08:59; Status DC Nicotine (Nicoderm Cq 7 Mg) 1 patch DAILY TD Last administered on 03/26/17 09: 53; Start 03/26/17 at 09:00; Stop 04/01/17 at 08:59 Ondansetron HCl (Zofran Odt) 4 mg Q6HP PRN SL NAUSEA OR VOMITING; Start at 16:00; Stop 03/26/17 at 23:55; Status Cancel Oxycodone/ Acetaminophen (Percocet 5mg/ 325mg Tablet) 1 tab Q4HP PRN PO PAIN SCALE 1-5; Start 03/23/17 at 16:00; Stop 03/30/17 at 15:59 Oxycodone/ Acetaminophen (Percocet 5mg/ 325mg Tablet) 2 tab Q4HP PRN PO PAIN SCALE 6-10 Last administered on 03/26/17 06:00; Start 03/23/17 at 16:00; Stop at 15:59 Pantoprazole Sodium (Protonix) 40 mg DAILY PO Last administered on 03/26/17 09 :52; Start 03/23/17 at 09:00; Stop 04/22/17 at 08:59 Polyethylene Glycol (Miralax) 1 pkt DAILY PRN PO CONSTIPATION; Start 03/23/17 at 16:00; Stop 04/22/17 at 15:59 Senna/Docusate Sodium (Senokot S) 1 tab BID PO Last administered on 03/26/17 09:52; Start 03/23/17 at 21:00; Stop 04/22/17 at 20:59 Tramadol HCl (Ultram Er) 200 mg DAILY PO Last administered on 03/26/17 09:52; Start 03/26/17 at 09:00; Stop 04/02/17 at 08:59 Tramadol HCl (Ultram Er) 200 mg DAILY PO ; Start 03/25/17 at 09:00; Stop 03/25/17 at 14:27; Status DC Trimethoprim/ Sulfamethoxazole (Bactrim Ds, Septra Ds 160mg/ 800mg) 1 tab BID PO Last administered on 03/26/17 09:52; Start 03/23/17 at 21:00; Stop 03/29/17 at 05:55 AMERICO HARMAN MD Mar 26, 2017 14:33
[2017-03-26 20:00] VITALS: BP 165/69
[2017-03-26] MEDS ORDERED: METHYLPHENIDATE 5 MG TAB PO SCH ×2 (21:00)
[2017-03-27] MEDS: PERCOCET 5MG/325MG TAB PO PRN ×4 (03:11→21:38)
[2017-03-27 06:00] VITALS: BP 146/81
[2017-03-27] MEDS: traMADol ER 100MG TABLET (ULTRAM ER) PO SCH (06:22)
[2017-03-27 07:04] LABS: MEAN CORPUSCULAR HEMOGLOBIN 33.8 pg (27.0-33.0); MEAN CORPUSCULAR HGB CONC 32.4 g/dl (32.0-36.5); MEAN CORPUSCULAR VOLUME 104.1 fl (80.0-96.0); RED CELL DISTRIBUTION WIDTH 16.1 % (11.5-14.5)
[2017-03-27 07:13] LABS: INR 3.17
[2017-03-27] MEDS: METHYLPHENIDATE 5 MG TAB PO SCH ×2 (08:31→11:41)
[2017-03-27] MEDS: ATORVASTATIN 10 MG TAB PO SCH (08:31)
[2017-03-27] MEDS: METOPROLOL SUCC *XL* 12.5MG PER 1/2 TAB (TopROL *XL*) PO SCH (08:31)
[2017-03-27] MEDS: SENOKOT S TAB PO SCH ×2 (08:31→21:35)
[2017-03-27] MEDS: PANTOPRAZOLE 40MG TAB (PROTONIX) PO SCH (08:31)
[2017-03-27] MEDS: BACTRIM 160MG/800MG DS TAB PO SCH ×2 (08:31→21:35)
[2017-03-27] MEDS: NICOTINE 7 MG/24 HR TRANSDERMAL TD SCH (08:32)
--- NOTE | 2017-03-27 10:39 | REP ---
RIGHT HIP, TWO VIEWS: HISTORY: Fracture. COMPARISON: 03/21/2017. The patient is status post ORIF of an intertrochanteric fracture. An intramedullary elier and screw are present. There is no dislocation. There is narrowing of the hip joint space. Surgical papi are present in the overlying soft tissue. IMPRESSION: The patient is status post ORIF of an intertrochanteric fracture. There is anatomic alignment. Signed by Adrián Ross MD 03/27/2017 10:40 A
[2017-03-27 14:00] VITALS: BP 145/69
--- NOTE | 2017-03-27 14:46 | IPNPDOC ---
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 She was treated with open reduction internal fixation on 03/20/17 and needs to regain modified independence with adaptive mobility as she is partial weightbearing to return home. Patient with prior DVT problems and notable peripheral vascular disease will need ongoing management. 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 Patient is right-handed. Of important note patient also with stage II sacral decubitus on admission is to be Off of that lesion and out of semi-reclining positions that creates sacral shear. ALLERGIES: See Below MEDICATIONS: Reviewed, see below. OBJECTIVE: VITAL SIGNS: Please see below. PHYSICAL EXAMINATION: GENERAL: Obese late middle-age white female in mild musculoskeletal distress favoring right hip. Patient is alert and well oriented. HEENT: Normocephalic/atraumatic. CARDIOVASCULAR: Regular rate and rhythm with normal S1 and S2. 2/4 bilateral radial pulses. LUNGS: All lanier clear to auscultation. ABDOMEN: Obese with normal bowel sounds in all quadrants. NEUROLOGICAL: Alert and oriented 4. Affect is pleasant and cooperative. Motor shows good full strength in bilateral upper and lower extremities except for right hip guarding. SKIN: Patient with old healed sacral decubitus and now a small stage II sacral decubitus. Right hip incision line without drainage, heat, significant edema and only a little ecchymosis with intact foam dressing in place. LABORATORY DATA: Reviewed. Please see below. MICROBIOLOGY: Please see below. IMAGING: No new imaging. DVT prophylaxis ordered?: Patient on Coumadin with elevated INR of 3.17. Coumadin held for today and patient using MI hose. ASSESSMENT AND PLAN: 1. Rehabilitation of right hip fracture status post open reduction internal fixation: Patient working with physical occupational therapy and mobilities ADLs and walker management using partial weightbearing on the right lower extremity (Orthopedics confirms it is 50% Partial Weight Bearing). Patient remains focused on pain and I added am dose of Tramadol ER 200 mg to boost analgesia, which seems to be helping a lot. We will watch for cognitive change with it. Better effort in PT today and seems more alert on Ritalin. 2. Anemia: Patient with moderate anemia with an H&H of 9.8 and 30.2%. We will continue observe this along with vital signs in this patient to monitor heart rate in the 90s and easily with activity goes up in the 100s, showing poor cardiopulmonary tolerance. 3. Sacral decubitus: We'll try and keep patient out of sacral shear positions and work to improve nutrition to help with skin healing. Currently patient is hypoalbuminemic with albumin of 2.0. 4. E. coli UTI: Patient continues on ten day course of Bactrim DS bid to end . No fevers, but some urinary incontinence. 5. Emesis: Episode of emesis today (? GI virus vs Opiates vs Bactrim/UTI) Will watch. TIME SPENT: Chart Review, examination and documentation required greater than 25 minutes. Allergies Coded Allergies: Penicillins (Verified Allergy, Severe, THROAT CLOSES,RASH, 08/29/16) Aspirin (Verified Allergy, Unknown, HIVES, 11/21/12) Iron (Verified Allergy, Unknown, FLU-LIKE SYMPTOMS, 11/21/12) Vital Signs Vital Signs Date Time Temp Pulse Resp B/P (MAP) Pulse Ox O2 Delivery O2 Flow Rate FiO2 03/27/17 11:41 18 03/27/17 09:00 Room Air 03/27/17 08:31 88 146/81 03/27/17 06:00 98.8 93 Laboratory Data CBC/BMP Laboratory Tests 03/27/17 06:51 Red Blood Count 2.90 L, Mean Corpuscular Volume 104.1 H, Mean Corpuscular Hemoglobin 33.8 H, Mean Corpuscular Hemoglobin Concent 32.4, Red Cell Distribution Width 16.1 H Labs 24H Laboratory Tests 2 03/27/17 06:51: Prothrombin Time 34.0H, Prothromb Time International Ratio 3.17 Current Medications Current Medications Current Medications Atorvastatin Calcium (Lipitor) 10 mg DAILY PO Last administered on 03/27/17 08 :31; Start 03/24/17 at 09:00; Stop 04/23/17 at 08:59 Bisacodyl (Dulcolax Tab) 5 mg DAILYPRN PRN PO CONSTIPATION Last administered on 03/26/17 20:53; Start 03/23/17 at 16:00; Stop 04/22/17 at 15:59 Magnesium Hydroxide (Milk Of Magnesia) 30 ml DAILYPRN PRN PO CONSTIPATION; Start 03/23/17 at 16:00; Stop 04/22/17 at 15:59 Methylphenidate HCl (Ritalin) 2.5 mg BID PO ; Start 03/26/17 at 21:00; Stop 06/02 at 21:00; Status DC Methylphenidate HCl (Ritalin) 2.5 mg BID@0800,1230 PO ; Start 03/26/17 at 21:00 ; Stop 03/26/17 at 21:00; Status DC Methylphenidate HCl (Ritalin) 2.5 mg BID@0800,1230 PO Last administered on 03/27 11:41; Start 03/27/17 at 08:00; Stop 04/03/17 at 07:59 Metoprolol Succinate (TopROL XL) 12.5 mg DAILY PO ; Start 03/23/17 at 09:00; Stop 03/23/17 at 16:11; Status DC Metoprolol Succinate (TopROL XL) 12.5 mg DAILY PO Last administered on 08:31; Start 03/23/17 at 16:11; Stop 04/22/17 at 08:59 Nicotine (Nicoderm Cq 14mg) 1 patch DAILY TD Last administered on 03/25/17 08: 22; Start 03/23/17 at 09:00; Stop 03/26/17 at 08:59; Status DC Nicotine (Nicoderm Cq 7 Mg) 1 patch DAILY TD Last administered on 03/27/17 08: 32; Start 03/26/17 at 09:00; Stop 04/01/17 at 08:59 Ondansetron HCl (Zofran Odt) 4 mg Q6HP PRN SL NAUSEA OR VOMITING; Start at 16:00; Stop 03/26/17 at 23:55; Status Cancel Oxycodone/ Acetaminophen (Percocet 5mg/ 325mg Tablet) 1 tab Q4HP PRN PO PAIN SCALE 1-5; Start 03/23/17 at 16:00; Stop 03/30/17 at 15:59 Oxycodone/ Acetaminophen (Percocet 5mg/ 325mg Tablet) 2 tab Q4HP PRN PO PAIN SCALE 6-10 Last administered on 03/27/17 11:41; Start 03/23/17 at 16:00; Stop at 15:59 Pantoprazole Sodium (Protonix) 40 mg DAILY PO Last administered on 03/27/17 08 :31; Start 03/23/17 at 09:00; Stop 04/22/17 at 08:59 Polyethylene Glycol (Miralax) 1 pkt DAILY PRN PO CONSTIPATION; Start 03/23/17 at 16:00; Stop 04/22/17 at 15:59 Senna/Docusate Sodium (Senokot S) 1 tab BID PO Last administered on 03/27/17 08:31; Start 03/23/17 at 21:00; Stop 04/22/17 at 20:59 Tramadol HCl (Ultram Er) 200 mg DAILY PO Last administered on 03/26/17 09:52; Start 03/26/17 at 09:00; Stop 03/27/17 at 00:16; Status DC Tramadol HCl (Ultram Er) 200 mg DAILY PO ; Start 03/25/17 at 09:00; Stop 03/25/17 at 14:27; Status DC Tramadol HCl (Ultram Er) 200 mg DAILY@0600 PO Last administered on 03/27/17 06 :22; Start 03/27/17 at 06:00; Stop 04/02/17 at 05:59 Trimethoprim/ Sulfamethoxazole (Bactrim Ds, Septra Ds 160mg/ 800mg) 1 tab BID PO Last administered on 03/27/17 08:31; Start 03/23/17 at 21:00; Stop 03/29/17 at 05:55 AMERICO HARMAN MD Mar 27, 2017 14:46
[2017-03-27 20:38] VITALS: BP 143/67
[2017-03-28] MEDS: PERCOCET 5MG/325MG TAB PO PRN ×5 (01:30→22:57)
[2017-03-28] MEDS: traMADol ER 100MG TABLET (ULTRAM ER) PO SCH (05:51)
[2017-03-28 06:00] VITALS: BP 136/64
[2017-03-28 06:53] LABS: MEAN CORPUSCULAR HEMOGLOBIN 34.1 pg (27.0-33.0); MEAN CORPUSCULAR HGB CONC 32.3 g/dl (32.0-36.5); MEAN CORPUSCULAR VOLUME 105.6 fl (80.0-96.0); RED CELL DISTRIBUTION WIDTH 16.7 % (11.5-14.5); WHITE BLOOD COUNT 8.2 K/mm3 (4.0-10.0)
[2017-03-28 06:57] LABS: INR 3.12
[2017-03-28] MEDS: NICOTINE 7 MG/24 HR TRANSDERMAL TD SCH (09:02)
[2017-03-28] MEDS: BACTRIM 160MG/800MG DS TAB PO SCH ×2 (09:03→20:28)
[2017-03-28] MEDS: METOPROLOL SUCC *XL* 12.5MG PER 1/2 TAB (TopROL *XL*) PO SCH (09:03)
[2017-03-28] MEDS: ATORVASTATIN 10 MG TAB PO SCH (09:03)
[2017-03-28] MEDS: PANTOPRAZOLE 40MG TAB (PROTONIX) PO SCH (09:03)
[2017-03-28] MEDS: SENOKOT S TAB PO SCH ×2 (09:03→20:28)
[2017-03-28] MEDS: METHYLPHENIDATE 5 MG TAB PO SCH ×2 (09:04→12:40)
[2017-03-28 14:00] VITALS: BP 125/53
[2017-03-28 20:00] VITALS: BP 124/56
[2017-03-29 04:30] VITALS: BP 135/62
[2017-03-29] MEDS: traMADol ER 100MG TABLET (ULTRAM ER) PO SCH (05:45)
[2017-03-29] MEDS: PERCOCET 5MG/325MG TAB PO PRN ×4 (06:13→20:35)
[2017-03-29 06:44] LABS: MEAN CORPUSCULAR HEMOGLOBIN 34.2 pg (27.0-33.0); MEAN CORPUSCULAR HGB CONC 32.5 g/dl (32.0-36.5); MEAN CORPUSCULAR VOLUME 105.2 fl (80.0-96.0); RED CELL DISTRIBUTION WIDTH 16.4 % (11.5-14.5); WHITE BLOOD COUNT 8.4 K/mm3 (4.0-10.0)
[2017-03-29 06:47] LABS: INR 1.91
[2017-03-29] MEDS: ATORVASTATIN 10 MG TAB PO SCH (08:29)
[2017-03-29] MEDS: PANTOPRAZOLE 40MG TAB (PROTONIX) PO SCH (08:29)
[2017-03-29] MEDS: SENOKOT S TAB PO SCH ×2 (08:29→20:34)
[2017-03-29] MEDS: NICOTINE 7 MG/24 HR TRANSDERMAL TD SCH (08:30)
[2017-03-29] MEDS: METOPROLOL SUCC *XL* 12.5MG PER 1/2 TAB (TopROL *XL*) PO SCH (08:30)
[2017-03-29] MEDS: METHYLPHENIDATE 5 MG TAB PO SCH ×2 (08:31→12:21)
[2017-03-29 14:00] VITALS: BP 129/61
[2017-03-29] MEDS ORDERED: WARFARIN SOD 1 MG TAB PO ONE (17:00)
[2017-03-29 20:00] VITALS: BP 128/62
[2017-03-30] MEDS: PERCOCET 5MG/325MG TAB PO PRN ×6 (00:25→22:04)
[2017-03-30] MEDS: traMADol ER 100MG TABLET (ULTRAM ER) PO SCH (06:17)
[2017-03-30 06:58] VITALS: BP 129/58
[2017-03-30 08:09] LABS: INR 1.64
[2017-03-30 08:10] LABS: MEAN CORPUSCULAR HEMOGLOBIN 33.7 pg (27.0-33.0); MEAN CORPUSCULAR HGB CONC 30.7 g/dl (32.0-36.5); MEAN CORPUSCULAR VOLUME 109.8 fl (80.0-96.0); PLATELET COUNT, AUTOMATED 644 k/mm3 (150-450); RED CELL DISTRIBUTION WIDTH 16.6 % (11.5-14.5); WHITE BLOOD COUNT 8.8 K/mm3 (4.0-10.0)
[2017-03-30] MEDS: ATORVASTATIN 10 MG TAB PO SCH (08:29)
[2017-03-30] MEDS: PANTOPRAZOLE 40MG TAB (PROTONIX) PO SCH (08:29)
[2017-03-30] MEDS: NICOTINE 7 MG/24 HR TRANSDERMAL TD SCH (08:30)
[2017-03-30] MEDS: METHYLPHENIDATE 5 MG TAB PO SCH ×2 (08:30→12:30)
[2017-03-30] MEDS: SENOKOT S TAB PO SCH ×2 (08:30→22:04)
[2017-03-30] MEDS: METOPROLOL SUCC *XL* 12.5MG PER 1/2 TAB (TopROL *XL*) PO SCH (08:30)
--- NOTE | 2017-03-30 11:30 | IPNPDOC ---
Date Seen The patient was seen on 03/30/17. Progress Note HPI: 66year oldF S/P mechanical fall with Rt hip fracture s/p ORIF as per Orthopedics transferred to ARU as per Dr Couch 03/23/17. No acute medical complaints today. Pt states she is feeling well. Denies pain. Sitting in chair. Denies any fevers, chills, weakness, fatigue, Headache, Chest Pain, Shortness of breath, cough, palpitations, abdominal pain, N/V/D or changes in bowel or bladder habits. Hospitalist requested to follow for medical management. PMHx: Mechanical fall h/o left hip fracture unsteady gait. Ambulates with walker H/O DVT 2014. HTN HLD psoriasis GERD PSHX: Left hip ORIF C section PE: GEN: 66yoF, appears stated age. Well-nourished, well developed. No acute distress. Alert and oriented x 3. Pleasant, interactive. HEENT: Normocephalic, atraumatic. Sclera are nonicteric. Conjunctiva without injection. Nose midline. No facial asymmetry. Moist mucous membranes. Dentition fair. Pharynx pink and moist. Neck supple, trachea midline. CHEST: Regular rate and rhythm, +S1, +S2 LUNGS: Clear to auscultation bilaterally. No wheezes, rales, or rhonchi. ABD: soft, non-tender, non-distended. +Bowel sounds throughout. EXT: Pulses 2+ bilaterally dorsalis pedis and radial. No lower extremity edema appreciated. SKIN: [place], dry, warm. No rashes. NEURO: No focal deficits appreciated. A&P: 66year oldF S/P mechanical fall with Rt hip fracture s/p ORIF as per Orthopedics transferred to ARU as per Dr Couch 03/23/17. 1. Mechanical Fall/Rt hip fracture/Rt hip ORIF. Mgmt as per ARU PT/OT as per Dr Couch. Pain control as per Dr Couch. Bowel care as per Dr Couch. Anticoagulation. Coumadin as per Orthopedics. 2. UTI. E coli. Completed po Bactrim. 3. Anemia. baseline appears to be 11-12. Hgb continues with slight trend upward. Fe studies/B12/folate. Stool OB neg. Pt states she has declined Colonoscopy. 4. Macrocytosis/Thrombocytosis. Add peripheral smear. 5. H/O DVT 2015/DVT prophylaxis. Coumadin managed currently as per orthopedics 6. HTN. Continue metoprolol. 7. HLD. Continue statin. Outpt F/U. 8. GERD. Continue Protonix. VS, I&O, 24H, Fishbone Vital Signs/I&O Vital Signs Date Time Temp Pulse Resp B/P (MAP) Pulse Ox O2 Delivery O2 Flow Rate FiO2 03/30/17 10:54 Room Air 03/30/17 10:03 18 03/30/17 08:30 76 129/58 03/30/17 06:58 97.9 96 I&O- Last 24 Hours up to 6 AM 03/30/17 06:00 Intake Total 1080 ml Output Total 2570 ml Balance -1490 ml Laboratory Data 24H LABS Laboratory Tests 2 03/30/17 07:38: Prothrombin Time 19.9H, Prothromb Time International Ratio 1.64 CBC/BMP Laboratory Tests 03/30/17 07:38 Red Blood Count 3.20 L, Mean Corpuscular Volume 109.8 H, Mean Corpuscular Hemoglobin 33.7 H, Mean Corpuscular Hemoglobin Concent 30.7 L, Red Cell Distribution Width 16.6 H Microbiology Microbiology 03/29/17 Stool Occult Blood (JOCELYN) - Final, Complete Farzana Lambert Mar 30, 2017 11:30
[2017-03-30 14:38] LABS: REASON FOR REVIEW COMPREHENSIVE REVIEW
[2017-03-30 14:46] VITALS: BP 123/59
[2017-03-30] MEDS ORDERED: WARFARIN SOD 2.5 MG TAB PO ONE (17:00)
--- NOTE | 2017-03-30 17:57 | IPNPDOC ---
Compliance Intern Progress Note DATE OF SERVICE: 03/30/17 DATE OF ADMISSION: Mar 23, 2017 at 14:50 INPATIENT REHABILITATION ADMISSION DAY: #8 SUBJECTIVE: Patient is a 66-year-old white female status post right intertrochanteric hip fracture secondary to fall at home on 03/19/17. She was treated with open reduction internal fixation on 03/20/17 and needs to regain modified independence with adaptive mobility as she is partial weightbearing to return home. Patient with prior DVT problems and notable peripheral vascular disease will need ongoing management. 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 Patient is right-handed. Of important note patient also with stage II sacral decubitus on admission is to be Off of that lesion and out of semi-reclining positions that creates sacral shear. ALLERGIES: See Below MEDICATIONS: Reviewed, see below. OBJECTIVE: VITAL SIGNS: Please see below. PHYSICAL EXAMINATION: GENERAL: Obese late middle-age white female in mild musculoskeletal distress favoring right hip. Patient is alert and well oriented. HEENT: Normocephalic/atraumatic. CARDIOVASCULAR: Regular rate and rhythm with normal S1 and S2. 2/4 bilateral radial pulses. LUNGS: All lanier clear to auscultation. ABDOMEN: Obese with normal bowel sounds in all quadrants. NEUROLOGICAL: Alert and oriented 4. Affect is pleasant and cooperative. Motor shows good full strength in bilateral upper and lower extremities except for right hip guarding. SKIN: Patient with old healed sacral decubitus and now a small stage II sacral decubitus. Right hip incision line without drainage, heat, significant edema and only a little ecchymosis with intact foam dressing in place. LABORATORY DATA: Reviewed. Please see below. MICROBIOLOGY: Please see below. IMAGING: No new imaging. DVT prophylaxis ordered?: Patient on Coumadin with elevated INR of 1.64. Coumadin ordered for tonight and patient using MI hose. ASSESSMENT AND PLAN: 1. Rehabilitation of right hip fracture status post open reduction internal fixation: Patient working with physical occupational therapy and mobilities ADLs and walker management using partial weightbearing on the right lower extremity (Orthopedics confirms it is 50% Partial Weight Bearing). Patient remains focused on pain and I added am dose of Tramadol ER 200 mg to boost analgesia, which seems to be helping a lot. We will watch for cognitive change with it. Better effort in PT today and seems more alert on Ritalin. Rehabilitation team rounds: Patient more alert and better performances and physical occupational therapy. She seems to be have a good response to the Ritalin at this time looks to be on pace to hit discharge goals for 04/06/17. 2. Anemia: Patient with moderate anemia with an H&H of 10.8 and 35.1% which is notably improved. We will continue observe this along with vital signs in this patient to monitor heart rate in the 90s and easily with activity goes up in the 100s, showing poor cardiopulmonary tolerance. 3. Sacral decubitus: We'll try and keep patient out of sacral shear positions and work to improve nutrition to help with skin healing. Currently patient is hypoalbuminemic with albumin of 2.0. TIME SPENT: Chart Review, examination and documentation required greater than 25 minutes. Allergies Coded Allergies: Penicillins (Verified Allergy, Severe, THROAT CLOSES,RASH, 08/29/16) Aspirin (Verified Allergy, Unknown, HIVES, 11/21/12) Iron (Verified Allergy, Unknown, FLU-LIKE SYMPTOMS, 11/21/12) Vital Signs Vital Signs Date Time Temp Pulse Resp B/P (MAP) Pulse Ox O2 Delivery O2 Flow Rate FiO2 03/30/17 17:30 18 03/30/17 14:46 98.5 84 123/59 (80) 96 Room Air Laboratory Data CBC/BMP Laboratory Tests 03/30/17 07:38 Red Blood Count 3.20 L, Mean Corpuscular Volume 109.8 H, Mean Corpuscular Hemoglobin 33.7 H, Mean Corpuscular Hemoglobin Concent 30.7 L, Red Cell Distribution Width 16.6 H Labs 24H Laboratory Tests 2 03/30/17 07:38: Differential Slide Review Report, Differential Pathologist's Review COMPREHENSIVE REVIEW, Peripheral Blood Smear Path Consult PERIPHERAL SMEAR, Prothrombin Time 19.9H, Prothromb Time International Ratio 1.64 Microbiology Microbiology 03/30/17 Stool Occult Blood (JOCELYN) - Final, Complete 03/29/17 Stool Occult Blood (JOCELYN) - Final, Complete Current Medications Current Medications Current Medications Atorvastatin Calcium (Lipitor) 10 mg DAILY PO Last administered on 03/30/17t 08 :29; Start 03/24/17 at 09:00; Stop 04/23/17 at 08:59 Bisacodyl (Dulcolax Tab) 5 mg DAILYPRN PRN PO CONSTIPATION Last administered on 03/26/17 20:53; Start 03/23/17 at 16:00; Stop 04/22/17 at 15:59 Magnesium Hydroxide (Milk Of Magnesia) 30 ml DAILYPRN PRN PO CONSTIPATION; Start 03/23/17 at 16:00; Stop 04/22/17 at 15:59 Methylphenidate HCl (Ritalin) 2.5 mg BID PO ; Start 03/26/17 at 21:00; Stop 06/02 at 21:00; Status DC Methylphenidate HCl (Ritalin) 2.5 mg BID@0800,1230 PO ; Start 03/26/17 at 21:00 ; Stop 03/26/17 at 21:00; Status DC Methylphenidate HCl (Ritalin) 2.5 mg BID@0800,1230 PO Last administered on 03/30 12:30; Start 03/27/17 at 08:00; Stop 04/03/17 at 07:59 Metoprolol Succinate (TopROL XL) 12.5 mg DAILY PO ; Start 03/23/17 at 09:00; Stop 03/23/17 at 16:11; Status DC Metoprolol Succinate (TopROL XL) 12.5 mg DAILY PO Last administered on 08:30; Start 03/23/17 at 16:11; Stop 04/22/17 at 08:59 Nicotine (Nicoderm Cq 14mg) 1 patch DAILY TD Last administered on 03/25/17 08: 22; Start 03/23/17 at 09:00; Stop 03/26/17 at 08:59; Status DC Nicotine (Nicoderm Cq 7 Mg) 1 patch DAILY TD Last administered on 03/30/17 08: 30; Start 03/26/17 at 09:00; Stop 04/01/17 at 08:59 Ondansetron HCl (Zofran Odt) 4 mg Q6HP PRN SL NAUSEA OR VOMITING; Start at 16:00; Stop 03/26/17 at 23:55; Status Cancel Oxycodone/ Acetaminophen (Percocet 5mg/ 325mg Tablet) 1 tab Q4HP PRN PO PAIN SCALE 1-5; Start 03/23/17 at 16:00; Stop 04/05/17 at 23:55 Oxycodone/ Acetaminophen (Percocet 5mg/ 325mg Tablet) 2 tab Q4HP PRN PO PAIN SCALE 6-10 Last administered on 03/30/17 17:30; Start 03/23/17 at 16:00; Stop at 23:55 Pantoprazole Sodium (Protonix) 40 mg DAILY PO Last administered on 03/30/17 08 :29; Start 03/23/17 at 09:00; Stop 04/22/17 at 08:59 Polyethylene Glycol (Miralax) 1 pkt DAILY PRN PO CONSTIPATION; Start 03/23/17 at 16:00; Stop 04/22/17 at 15:59 Senna/Docusate Sodium (Senokot S) 1 tab BID PO Last administered on 03/30/17 08:30; Start 03/23/17 at 21:00; Stop 04/22/17 at 20:59 Tramadol HCl (Ultram Er) 200 mg DAILY PO Last administered on 03/26/17 09:52; Start 03/26/17 at 09:00; Stop 03/27/17 at 00:16; Status DC Tramadol HCl (Ultram Er) 200 mg DAILY PO ; Start 03/25/17 at 09:00; Stop 03/25/17 at 14:27; Status DC Tramadol HCl (Ultram Er) 200 mg DAILY@0600 PO Last administered on 03/30/17 06 :17; Start 03/27/17 at 06:00; Stop 04/02/17 at 05:59 Trimethoprim/ Sulfamethoxazole (Bactrim Ds, Septra Ds 160mg/ 800mg) 1 tab BID PO Last administered on 03/28/17 20:28; Start 03/23/17 at 21:00; Stop 03/29/17 at 05:55; Status DC AMERICO HARMAN MD Mar 30, 2017 17:57
[2017-03-30 20:00] VITALS: BP 130/59
[2017-03-31] MEDS: PERCOCET 5MG/325MG TAB PO PRN ×5 (02:49→20:46)
[2017-03-31 06:00] VITALS: BP 149/70
[2017-03-31] MEDS: traMADol ER 100MG TABLET (ULTRAM ER) PO SCH (06:02)
[2017-03-31 07:55] LABS: MEAN CORPUSCULAR HEMOGLOBIN 34.1 pg (27.0-33.0); MEAN CORPUSCULAR HGB CONC 31.3 g/dl (32.0-36.5); MEAN CORPUSCULAR VOLUME 108.9 fl (80.0-96.0); RED CELL DISTRIBUTION WIDTH 16.4 % (11.5-14.5); WHITE BLOOD COUNT 6.8 K/mm3 (4.0-10.0)
[2017-03-31 08:04] LABS: INR 1.73
[2017-03-31] MEDS: METHYLPHENIDATE 5 MG TAB PO SCH ×2 (08:20→12:35)
[2017-03-31] MEDS: NICOTINE 7 MG/24 HR TRANSDERMAL TD SCH (08:20)
[2017-03-31] MEDS: SENOKOT S TAB PO SCH ×2 (08:21→20:46)
[2017-03-31] MEDS: METOPROLOL SUCC *XL* 12.5MG PER 1/2 TAB (TopROL *XL*) PO SCH (08:21)
[2017-03-31] MEDS: PANTOPRAZOLE 40MG TAB (PROTONIX) PO SCH (08:21)
[2017-03-31] MEDS: ATORVASTATIN 10 MG TAB PO SCH (08:21)
--- NOTE | 2017-03-31 11:34 | IPNPDOC ---
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 She was treated with open reduction internal fixation on 03/20/17 and needs to regain modified independence with adaptive mobility as she is partial weightbearing to return home. Patient with prior DVT problems and notable peripheral vascular disease will need ongoing management. 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 Patient is right-handed. Of important note patient also with stage II sacral decubitus on admission is to be Off of that lesion and out of semi-reclining positions that creates sacral shear. ALLERGIES: See Below MEDICATIONS: Reviewed, see below. OBJECTIVE: VITAL SIGNS: Please see below. PHYSICAL EXAMINATION: GENERAL: Obese late middle-age white female in mild musculoskeletal distress favoring right hip. Patient is alert and well oriented. HEENT: Normocephalic/atraumatic. CARDIOVASCULAR: Regular rate and rhythm with normal S1 and S2. 2/4 bilateral radial pulses. LUNGS: All lanier clear to auscultation. ABDOMEN: Obese with normal bowel sounds in all quadrants. NEUROLOGICAL: Alert and oriented 4. Affect is pleasant and cooperative. Motor shows good full strength in bilateral upper and lower extremities except for right hip guarding. SKIN: Patient with old healed sacral decubitus and now a small stage II sacral decubitus. Right hip incision line without drainage, heat, significant edema and only a little ecchymosis with intact foam dressing in place. LABORATORY DATA: Reviewed. Please see below. MICROBIOLOGY: Please see below. IMAGING: No new imaging. DVT prophylaxis ordered?: Patient on Coumadin with elevated INR of 1.73. Coumadin ordered for tonight and patient using MI hose. ASSESSMENT AND PLAN: 1. Rehabilitation of right hip fracture status post open reduction internal fixation: Patient working with physical occupational therapy and mobilities ADLs and walker management using partial weightbearing on the right lower extremity (Orthopedics confirms it is 50% Partial Weight Bearing). Patient remains focused on pain and I added am dose of Tramadol ER 200 mg to boost analgesia, which seems to be helping a lot. We will watch for cognitive change with it. Better effort in PT today and seems more alert on Ritalin. 2. Anemia: Patient with moderate anemia with an H&H of 9.9 and 31.5% which is notably improved. We will continue observe this along with vital signs in this patient to monitor heart rate in the 90s and easily with activity goes up in the 100s, showing poor cardiopulmonary tolerance. 3. Sacral decubitus: We'll try and keep patient out of sacral shear positions and work to improve nutrition to help with skin healing. Currently patient is hypoalbuminemic with albumin of 2.0. 4. Macrocytosis: Today is 108.9. Patient will need Hematology outpatient consultation. TIME SPENT: Chart Review, examination and documentation required greater than 25 minutes. Allergies Coded Allergies: Penicillins (Verified Allergy, Severe, THROAT CLOSES,RASH, 08/29/16) Aspirin (Verified Allergy, Unknown, HIVES, 11/21/12) Iron (Verified Allergy, Unknown, FLU-LIKE SYMPTOMS, 11/21/12) Vital Signs Vital Signs Date Time Temp Pulse Resp B/P (MAP) Pulse Ox O2 Delivery O2 Flow Rate FiO2 03/31/17 09:00 Room Air 03/31/17 08:50 18 03/31/17 08:21 80 149/70 03/31/17 06:00 98.2 94 Laboratory Data CBC/BMP Laboratory Tests 03/31/17 07:11 Red Blood Count 2.89 L, Mean Corpuscular Volume 108.9 H, Mean Corpuscular Hemoglobin 34.1 H, Mean Corpuscular Hemoglobin Concent 31.3 L, Red Cell Distribution Width 16.4 H Labs 24H Laboratory Tests 2 03/31/17 07:11: Prothrombin Time 20.8H, Prothromb Time International Ratio 1.73 Microbiology Microbiology 03/30/17 Stool Occult Blood (JOCELYN) - Final, Complete 03/29/17 Stool Occult Blood (JOCELYN) - Final, Complete Current Medications Current Medications Current Medications Atorvastatin Calcium (Lipitor) 10 mg DAILY PO Last administered on 03/31/17 08 :21; Start 03/24/17 at 09:00; Stop 04/23/17 at 08:59 Bisacodyl (Dulcolax Tab) 5 mg DAILYPRN PRN PO CONSTIPATION Last administered on 03/26/17 20:53; Start 03/23/17 at 16:00; Stop 04/22/17 at 15:59 Magnesium Hydroxide (Milk Of Magnesia) 30 ml DAILYPRN PRN PO CONSTIPATION; Start 03/23/17 at 16:00; Stop 04/22/17 at 15:59 Methylphenidate HCl (Ritalin) 2.5 mg BID PO ; Start 03/26/17 at 21:00; Stop 06/02 at 21:00; Status DC Methylphenidate HCl (Ritalin) 2.5 mg BID@0800,1230 PO ; Start 03/26/17 at 21:00 ; Stop 03/26/17 at 21:00; Status DC Methylphenidate HCl (Ritalin) 2.5 mg BID@0800,1230 PO Last administered on 03/31 08:20; Start 03/27/17 at 08:00; Stop 04/03/17 at 07:59 Metoprolol Succinate (TopROL XL) 12.5 mg DAILY PO ; Start 03/23/17 at 09:00; Stop 03/23/17 at 16:11; Status DC Metoprolol Succinate (TopROL XL) 12.5 mg DAILY PO Last administered on 08:21; Start 03/23/17 at 16:11; Stop 04/22/17 at 08:59 Nicotine (Nicoderm Cq 14mg) 1 patch DAILY TD Last administered on 03/25/17 08: 22; Start 03/23/17 at 09:00; Stop 03/26/17 at 08:59; Status DC Nicotine (Nicoderm Cq 7 Mg) 1 patch DAILY TD Last administered on 03/31/17 08: 20; Start 03/26/17 at 09:00; Stop 04/01/17 at 08:59 Ondansetron HCl (Zofran Odt) 4 mg Q6HP PRN SL NAUSEA OR VOMITING; Start at 16:00; Stop 03/26/17 at 23:55; Status Cancel Oxycodone/ Acetaminophen (Percocet 5mg/ 325mg Tablet) 1 tab Q4HP PRN PO PAIN SCALE 1-5; Start 03/23/17 at 16:00; Stop 04/05/17 at 23:55 Oxycodone/ Acetaminophen (Percocet 5mg/ 325mg Tablet) 2 tab Q4HP PRN PO PAIN SCALE 6-10 Last administered on 03/31/17 08:20; Start 03/23/17 at 16:00; Stop at 23:55 Pantoprazole Sodium (Protonix) 40 mg DAILY PO Last administered on 03/31/17 08 :21; Start 03/23/17 at 09:00; Stop 04/22/17 at 08:59 Polyethylene Glycol (Miralax) 1 pkt DAILY PRN PO CONSTIPATION; Start 03/23/17 at 16:00; Stop 04/22/17 at 15:59 Senna/Docusate Sodium (Senokot S) 1 tab BID PO Last administered on 03/31/17 08:21; Start 03/23/17 at 21:00; Stop 04/22/17 at 20:59 Tramadol HCl (Ultram Er) 200 mg DAILY PO Last administered on 03/26/17 09:52; Start 03/26/17 at 09:00; Stop 03/27/17 at 00:16; Status DC Tramadol HCl (Ultram Er) 200 mg DAILY PO ; Start 03/25/17 at 09:00; Stop 03/25/17 at 14:27; Status DC Tramadol HCl (Ultram Er) 200 mg DAILY@0600 PO Last administered on 03/31/17 06 :02; Start 03/27/17 at 06:00; Stop 04/07/17 at 23:55 Trimethoprim/ Sulfamethoxazole (Bactrim Ds, Septra Ds 160mg/ 800mg) 1 tab BID PO Last administered on 03/28/17 20:28; Start 03/23/17 at 21:00; Stop 03/29/17 at 05:55; Status DC AMERICO HARMAN MD Mar 31, 2017 11:34
[2017-03-31 14:00] VITALS: BP 115/67
[2017-03-31] MEDS ORDERED: WARFARIN SOD 3 MG TAB PO ONE (17:00)
[2017-03-31] MEDS ORDERED: WARFARIN SOD 2 MG TAB PO ONE (17:00)
[2017-03-31 19:56] VITALS: BP 143/67
[2017-04-01] MEDS: PERCOCET 5MG/325MG TAB PO PRN ×5 (02:08→20:43)
[2017-04-01] MEDS: traMADol ER 100MG TABLET (ULTRAM ER) PO SCH (05:58)
[2017-04-01 06:00] VITALS: BP 144/71
[2017-04-01 07:18] LABS: MEAN CORPUSCULAR HGB CONC 31.9 g/dl (32.0-36.5); MEAN CORPUSCULAR VOLUME 106.5 fl (80.0-96.0); RED CELL DISTRIBUTION WIDTH 15.7 % (11.5-14.5)
[2017-04-01 07:22] LABS: INR 1.77
[2017-04-01] MEDS ORDERED: XARE10TA PO (07:46)
[2017-04-01] MEDS: SENOKOT S TAB PO SCH ×2 (07:49→20:42)
[2017-04-01] MEDS: PANTOPRAZOLE 40MG TAB (PROTONIX) PO SCH (07:49)
[2017-04-01] MEDS: METHYLPHENIDATE 5 MG TAB PO SCH ×2 (07:49→12:06)
[2017-04-01] MEDS: METOPROLOL SUCC *XL* 12.5MG PER 1/2 TAB (TopROL *XL*) PO SCH (07:50)
[2017-04-01] MEDS: ATORVASTATIN 10 MG TAB PO SCH (07:50)
[2017-04-01 07:52] VITALS: BP 119/70
[2017-04-01] MEDS ORDERED: RIVAROXABAN 10 MG TAB (XARELTO) PO ONE (12:00)
--- NOTE | 2017-04-01 13:56 | IPNPDOC ---
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 She was treated with open reduction internal fixation on 03/20/17 and needs to regain modified independence with adaptive mobility as she is partial weightbearing to return home. Patient with prior DVT problems and notable peripheral vascular disease will need ongoing management. 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 Patient is right-handed. Of important note patient also with stage II sacral decubitus on admission is to be Off of that lesion and out of semi-reclining positions that creates sacral shear. ALLERGIES: See Below MEDICATIONS: Reviewed, see below. OBJECTIVE: VITAL SIGNS: Please see below. PHYSICAL EXAMINATION: GENERAL: Obese late middle-age white female in mild musculoskeletal distress favoring right hip. Patient is alert and well oriented. HEENT: Normocephalic/atraumatic. CARDIOVASCULAR: Regular rate and rhythm with normal S1 and S2. 2/4 bilateral radial pulses. LUNGS: All lanier clear to auscultation. ABDOMEN: Obese with normal bowel sounds in all quadrants. NEUROLOGICAL: Alert and oriented 4. Affect is pleasant and cooperative. Motor shows good full strength in bilateral upper and lower extremities except for now a little right hip guarding. SKIN: Patient with old healed sacral decubitus and now a small stage II sacral decubitus. Right hip incision line without drainage, heat, significant edema and only a little ecchymosis with intact foam dressing in place. LABORATORY DATA: Reviewed. Please see below. MICROBIOLOGY: Please see below. IMAGING: No new imaging. DVT prophylaxis ordered?: Patient on Coumadin with elevated INR of 1.77. Coumadin ordered for tonight and patient using MI hose. ASSESSMENT AND PLAN: 1. Rehabilitation of right hip fracture status post open reduction internal fixation: Patient working with physical occupational therapy and mobilities ADLs and walker management using partial weightbearing on the right lower extremity (Orthopedics confirms it is 50% Partial Weight Bearing). Patient remains focused on pain and I added am dose of Tramadol ER 200 mg to boost analgesia, which seems to be helping a lot. We will watch for cognitive change with it. Better effort in PT today and seems more alert on Ritalin. Patient has reached d/c goals today, so we will d/c to home tomorrow with homecare. 2. Anemia: Patient with moderate anemia with an H&H of 10.1 and 31.6% which is notably improved. We will continue observe. 3. Sacral decubitus: We'll try and keep patient out of sacral shear positions and work to improve nutrition to help with skin healing. Currently patient is hypoalbuminemic with albumin of 2.0. 4. Macrocytosis: Today is 106.5. Patient will need Hematology outpatient consultation. TIME SPENT: Chart Review, examination and documentation required greater than 25 minutes. Allergies Coded Allergies: Penicillins (Verified Allergy, Severe, THROAT CLOSES,RASH, 08/29/16) Aspirin (Verified Allergy, Unknown, HIVES, 11/21/12) Iron (Verified Allergy, Unknown, FLU-LIKE SYMPTOMS, 11/21/12) Vital Signs Vital Signs Date Time Temp Pulse Resp B/P (MAP) Pulse Ox O2 Delivery O2 Flow Rate FiO2 04/01/17 12:49 18 Room Air 04/01/17 07:52 89 119/70 04/01/17 06:00 98.1 98 Laboratory Data CBC/BMP Laboratory Tests 04/01/17 06:57 Red Blood Count 2.97 L, Mean Corpuscular Volume 106.5 H, Mean Corpuscular Hemoglobin 34.0 H, Mean Corpuscular Hemoglobin Concent 31.9 L, Red Cell Distribution Width 15.7 H Labs 24H Laboratory Tests 2 04/01/17 06:57: Prothrombin Time 21.2H, Prothromb Time International Ratio 1.77 Microbiology Microbiology 03/30/17 Stool Occult Blood (JOCELYN) - Final, Complete 03/29/17 Stool Occult Blood (JOCELYN) - Final, Complete Current Medications Current Medications Current Medications Atorvastatin Calcium (Lipitor) 10 mg DAILY PO Last administered on 04/01/17 07 :50; Start 03/24/17 at 09:00; Stop 04/23/17 at 08:59 Bisacodyl (Dulcolax Tab) 5 mg DAILYPRN PRN PO CONSTIPATION Last administered on 03/26/17 20:53; Start 03/23/17 at 16:00; Stop 04/22/17 at 15:59 Magnesium Hydroxide (Milk Of Magnesia) 30 ml DAILYPRN PRN PO CONSTIPATION; Start 03/23/17 at 16:00; Stop 04/22/17 at 15:59 Methylphenidate HCl (Ritalin) 2.5 mg BID PO ; Start 03/26/17 at 21:00; Stop 06/02 at 21:00; Status DC Methylphenidate HCl (Ritalin) 2.5 mg BID@0800,1230 PO ; Start 03/26/17 at 21:00 ; Stop 03/26/17 at 21:00; Status DC Methylphenidate HCl (Ritalin) 2.5 mg BID@0800,1230 PO Last administered on 04/01 12:06; Start 03/27/17 at 08:00; Stop 04/06/17 at 23:55 Metoprolol Succinate (TopROL XL) 12.5 mg DAILY PO ; Start 03/23/17 at 09:00; Stop 03/23/17 at 16:11; Status DC Metoprolol Succinate (TopROL XL) 12.5 mg DAILY PO Last administered on 07:50; Start 03/23/17 at 16:11; Stop 04/22/17 at 08:59 Nicotine (Nicoderm Cq 14mg) 1 patch DAILY TD Last administered on 03/25/17 08: 22; Start 03/23/17 at 09:00; Stop 03/26/17 at 08:59; Status DC Nicotine (Nicoderm Cq 7 Mg) 1 patch DAILY TD Last administered on 03/31/17 08: 20; Start 03/26/17 at 09:00; Stop 04/01/17 at 08:59; Status DC Ondansetron HCl (Zofran Odt) 4 mg Q6HP PRN SL NAUSEA OR VOMITING; Start at 16:00; Stop 03/26/17 at 23:55; Status Cancel Oxycodone/ Acetaminophen (Percocet 5mg/ 325mg Tablet) 1 tab Q4HP PRN PO PAIN SCALE 1-5; Start 03/23/17 at 16:00; Stop 04/05/17 at 23:55 Oxycodone/ Acetaminophen (Percocet 5mg/ 325mg Tablet) 2 tab Q4HP PRN PO PAIN SCALE 6-10 Last administered on 04/01/17 12:07; Start 03/23/17 at 16:00; Stop at 23:55 Pantoprazole Sodium (Protonix) 40 mg DAILY PO Last administered on 04/01/17 07 :49; Start 03/23/17 at 09:00; Stop 04/22/17 at 08:59 Polyethylene Glycol (Miralax) 1 pkt DAILY PRN PO CONSTIPATION; Start 03/23/17 at 16:00; Stop 04/22/17 at 15:59 Senna/Docusate Sodium (Senokot S) 1 tab BID PO Last administered on 04/01/17 07:49; Start 03/23/17 at 21:00; Stop 04/22/17 at 20:59 Tramadol HCl (Ultram Er) 200 mg DAILY PO Last administered on 03/26/17 09:52; Start 03/26/17 at 09:00; Stop 03/27/17 at 00:16; Status DC Tramadol HCl (Ultram Er) 200 mg DAILY PO ; Start 03/25/17 at 09:00; Stop 03/25/17 at 14:27; Status DC Tramadol HCl (Ultram Er) 200 mg DAILY@0600 PO Last administered on 04/01/17 05 :58; Start 03/27/17 at 06:00; Stop 04/07/17 at 23:55 Trimethoprim/ Sulfamethoxazole (Bactrim Ds, Septra Ds 160mg/ 800mg) 1 tab BID PO Last administered on 03/28/17 20:28; Start 03/23/17 at 21:00; Stop 03/29/17 at 05:55; Status DC AMERICO HARMAN MD Apr 01, 2017 13:56
[2017-04-01 14:00] VITALS: BP 121/58
[2017-04-01 20:00] VITALS: BP 147/64
[2017-04-02] MEDS: PERCOCET 5MG/325MG TAB PO PRN ×2 (01:32→08:18)
[2017-04-02] MEDS: traMADol ER 100MG TABLET (ULTRAM ER) PO SCH (05:56)
[2017-04-02 06:00] VITALS: BP 164/74
[2017-04-02 07:43] LABS: MEAN CORPUSCULAR HEMOGLOBIN 34.1 pg (27.0-33.0); MEAN CORPUSCULAR VOLUME 106.4 fl (80.0-96.0); RED CELL DISTRIBUTION WIDTH 16.1 % (11.5-14.5); WHITE BLOOD COUNT 6.8 K/mm3 (4.0-10.0)
[2017-04-02] MEDS: METHYLPHENIDATE 5 MG TAB PO SCH ×2 (08:13→11:30)
[2017-04-02 08:14] VITALS: BP 164/74
[2017-04-02] MEDS: PANTOPRAZOLE 40MG TAB (PROTONIX) PO SCH (08:14)
[2017-04-02] MEDS: SENOKOT S TAB PO SCH (08:14)
[2017-04-02] MEDS: ATORVASTATIN 10 MG TAB PO SCH (08:14)
[2017-04-02] MEDS: METOPROLOL SUCC *XL* 12.5MG PER 1/2 TAB (TopROL *XL*) PO SCH (08:14)
[2017-04-02] MEDS ORDERED: XARE10TA PO (08:29)
[2017-04-02] MEDS ORDERED: ATOR1TAB19 PO (08:52)
[2017-04-02] MEDS ORDERED: METO1TAB32 PO (08:52)
[2017-04-02] MEDS ORDERED: PERC5TAB12 PO (08:52)
[2017-04-02] MEDS ORDERED: PANT40TA2 PO (08:52)
[2017-04-02] MEDS ORDERED: TRAM10TAER PO (08:52)
--- NOTE | 2017-04-05 20:18 | PMRDS ---
DATE OF ADMISSION: 03/23/2017 DATE OF DISCHARGE: 04/02/2017 DISCHARGE DIAGNOSIS: Rehabilitation of right hip fracture status post open reduction, internal fixation. SECONDARY DIAGNOSES: 1. Prior left hip fracture complicated by deep venous thrombosis (DVT). 2. Atherosclerotic cardiovascular disease with hypertension, hyperlipidemia. 3. Type 2 diabetes mellitus with peripheral vascular disease. 4. Status post blood loss anemia. 5. Thrombocytosis. 6. Psoriasis. 7. Escherichia (E) coli urinary tract infection (UTI). 8. Patient is status post aortobifemoral bypass surgery. HISTORY: The patient is a right-handed white female using a walker previously, fell on 03/19/2017, landing on her right side fracturing her right hip. Because she was on Coumadin, surgery was held until 03/22/2017. In the postoperative course, patient did develop an E. coli UTI, which has been treated with Bactrim and also moderate anemia and patient has had tobacco withdrawal and been treated with Nicoderm patches for that having completed course of tapering off nicotine patch. Patient with Stage 2 and old Stage 1 Sacral Decubiti on admission. PROCEDURES PERFORMED: On this unit, stool occult blood times two which were negative. Peripheral smear which showed chronic macrocytic anemia with normal B12 and folate. No immature myeloid cells noted and recent thrombocytosis felt to be reactive in nature. DIAGNOSTIC LABORATORY DATA: Showed patient admitted with a hemoglobin and hematocrit of 9.0 and 28.0%, MCV of 103.8 and platelet count of 395,000, which has transitioned now to hemoglobin and hematocrit of 9.7 and 30.3% with an MCV that is at 106.4, having previously peaked at 109.8 and platelet count now 483,000, having peaked at 644,000. Chemistry showing normal electrolytes, BUN and creatinine with albumin markedly reduced at 2.0 and calcium at 7.8, though calcium has shown some recovery at 8.2 on the most recent study, was otherwise normal BMP. The patient also had iron test which was low at 42, total iron binding capacity reduced at 215 with normal ferritin saturation percentage of 19.5 and ferritin of 104, also normal, folate and B12 were 8.6, which is normal and 516, which is normal. HOSPITAL COURSE: Patient admitted to acute rehabilitation unit on 03/23/2017, started in a program of physical, occupational therapy with rehabilitation nursing, physiatry, and medicine consult and orthopedic consult and following managing the Coumadin. Patient initially noting lots of pain and showing poor effort and energy, was felt to have problems with anxiety, depression, as well as pain and adjustment was made starting patient on a trial of low-dose Ritalin 2.5 mg with breakfast and lunch. Patient then showed significant improvement in her attention and energy and focus in therapy and markedly took off once patient's weightbearing status was transitioned to 50% partial weightbearing on her right lower extremity. At that point, patient progressed rapidly with training and was initially minimal assist in basic transfers and just doing sitting balance, which was good, to increase in energy, endurance and being modified independence in transfers, toileting and showing good balance in sitting and standing for both static and dynamic balance and physical therapy similarly showing initial standing and static and dynamic balance of good minus and fair plus, ambulating only 1 foot with minimum assistance to becoming modified independent in transfers, mobility, having good sitting and standing balances using a front wheel walker to ambulating greater than 150 feet independently, knowing her exercise program and doing approximately 20 repetitions of all the exercises and greater than 150 feet with the wheelchair. Patient, however, had been under evaluation for the abnormal platelets and the marked macrocytosis. But otherwise has been medically stable and mood has markedly improved throughout the course of admission, as well as her self-confidence. The urinary tract infection cleared with the antibiotics and no recurrent findings and patient has been afebrile without any elevation of white counts. The patient treated with Coumadin now transitioned to Xarelto and as of yesterday she was still therapeutic from the Coumadin with an INR of 1.77. Stage 2 decubitus has epithelialized over to Stage 1. Patient completed Nicoderm treatment/taper off. COMPLICATIONS: None. DISCHARGE MEDICATIONS: - Xarelto 10 mg daily for anticoagulation, deep venous thrombosis (DVT) prophylaxis - tramadol 200 mg extended release daily for pain management, 14 tablets issued - Tylenol 500 mg as needed for pain - atorvastatin 10 mg daily for elevated lipids - metoprolol succinate 12.5 mg daily for blood pressure - Percocet 1-2 tablets every 4 hours as needed for moderate to severe pain, 30 tablets issued - pantoprazole 40 mg daily for stomach acid protection DISCHARGE INSTRUCTIONS: Patient to followup with new primary care within 1-2 weeks. Patient referred to hematology at [facility] within the next 2 weeks. Patient to followup in orthopedics with Dr. Schumacher within a week. Time spent on discharge is greater than 35 minutes. MTDD
[2017-06-23] MEDS ORDERED: MULT1TAB10 PO (10:13)
[2017-06-23] MEDS ORDERED: VITA100067 PO (10:13)
== END 2017-04-02 13:20 | disposition home health service (06) | DRG 560 ==
LOC: M PM&R 14:50
PROVIDERS: ADMIT Physical Medicine & Rehabilitation; ATTEND Physical Medicine & Rehabilitation
DX: S72.141D Displaced intertrochanteric fracture of right femur, subsequent encounter for closed fracture with routine healing (principal); N39.0 Urinary tract infection, site not specified; I73.9 Peripheral vascular disease, unspecified; I10 Essential (primary) hypertension; B96.20 Unspecified Escherichia coli [E. coli] as the cause of diseases classified elsewhere; L89.152 Pressure ulcer of sacral region, stage 2; E66.9 Obesity, unspecified; D53.9 Nutritional anemia, unspecified; Z88.0 Allergy status to penicillin; Z88.6 Allergy status to analgesic agent; Z88.8 Allergy status to other drugs, medicaments and biological substances; Z79.899 Other long term (current) drug therapy; E11.51 Type 2 diabetes mellitus with diabetic peripheral angiopathy without gangrene; E78.5 Hyperlipidemia, unspecified; L40.8 Other psoriasis; I25.10 Atherosclerotic heart disease of native coronary artery without angina pectoris; D47.3 Essential (hemorrhagic) thrombocythemia; Z86.718 Personal history of other venous thrombosis and embolism; F17.210 Nicotine dependence, cigarettes, uncomplicated; K21.9 Gastro-esophageal reflux disease without esophagitis; Z79.01 Long term (current) use of anticoagulants

== ENCOUNTER → 2017-04-06 | Outpatient (REF) | payer MEDICARE, MEDICAID ==
[~2017-04-06] MED LIST changes: -METOPROLOL SUCC *XL* 25MG TAB (TopROL *XL*) PO SCH; +MULT1TAB10 PO; +TRAM10TAER PO; +VITA100067 PO; +XARE10TA PO
[2017-04-06 14:10] LABS: MEAN CORPUSCULAR HEMOGLOBIN 34.5 pg (27.0-33.0); MEAN CORPUSCULAR HGB CONC 31.7 g/dl (32.0-36.5); MEAN CORPUSCULAR VOLUME 108.7 fl (80.0-96.0); RED CELL DISTRIBUTION WIDTH 15.4 % (11.5-14.5); WHITE BLOOD COUNT 7.5 K/mm3 (4.0-10.0)
[2017-04-06 14:17] LABS: ALBUMIN 2.6 GM/DL (3.2-5.2); ALBUMIN/GLOBULIN RATIO 0.65 (1.00-1.93); ALKALINE PHOSPHATASE 358 U/L (45-117); ALT/SGPT 15 U/L (12-78); ANION GAP 7 MEQ/L (8-16); AST/SGOT 25 U/L (15-37); BILIRUBIN,TOTAL 0.5 MG/DL (0.2-1.0); BLOOD UREA NITROGEN 8 MG/DL (7-18); CALCIUM LEVEL 8.6 MG/DL (8.8-10.2); CARBON DIOXIDE LEVEL 30 MEQ/L (21-32); CHLORIDE LEVEL 101 MEQ/L (98-107); CREATININE FOR GFR 0.67 MG/DL (0.55-1.02); GLOMERULAR FILTRATION RATE > 60.0 (>45); GLUCOSE, FASTING 129 MG/DL (80-110); POTASSIUM SERUM 4.4 MEQ/L (3.5-5.1); SODIUM LEVEL 138 MEQ/L (136-145); TOTAL PROTEIN 6.6 GM/DL (6.4-8.2)
== END ==
LOC: M LAB REF 12:55
PROVIDERS: ATTEND Physical Medicine & Rehabilitation
DX: S72.001D Fracture of unspecified part of neck of right femur, subsequent encounter for closed fracture with routine healing (principal); D64.9 Anemia, unspecified; E11.51 Type 2 diabetes mellitus with diabetic peripheral angiopathy without gangrene; Z79.01 Long term (current) use of anticoagulants; X58.XXXD Exposure to other specified factors, subsequent encounter; Y93.9 Activity, unspecified; Y92.9 Unspecified place or not applicable; Y99.8 Other external cause status

== ENCOUNTER 2017-07-06 10:45 | Inpatient (IN) | payer MEDICARE, MEDICAID ==
[2017-06-23 10:34] VITALS: BP 126/76
--- NOTE | 2017-07-03 16:37 | HPE ---
DATE OF PLANNED ADMISSION: 07/06/2017 ATTENDING PHYSICIAN: Isai Schumacher MD CHIEF COMPLAINT: Right hip pain, status post AO screw with failure of reduction. HISTORY OF PRESENT ILLNESS: This is a pleasant 66-year-old female who suffered a right hip intertrochanteric fracture that underwent AO screw. Unfortunately that repair failed and she is going to be converted to a total hip arthroplasty. X-rays of the hip are notable for prominent intertrochanteric fracture as well as protrusion of the AO screw through the femoral head and into the joint space. She has consented for a right conversion to a right total hip arthroplasty by Dr. Roney Schumacher. Medical optimization was performed by Dr. Briceño. ALLERGIES: PENICILLIN. CURRENT MEDICATIONS: - Percocet - vitamin D - multivitamin - Aleve PAST MEDICAL HISTORY: None. PAST SURGICAL HISTORY: Two sections. SOCIAL HISTORY: This patient is retired, quit smoking three years ago and does not drink alcohol. FAMILY HISTORY: Noncontributory. REVIEW OF SYSTEMS: This patient denies chest pain, heart palpitations, cough, wheezing, difficulty breathing and shortness of breath. She denies abdominal pain, nausea, vomiting, diarrhea or constipation. She denies recent upper respiratory infection or urinary tract infection symptoms. She does have persistent pain in her right hip. PHYSICAL EXAMINATION: GENERAL: She is well-nourished, well-developed in no acute distress, alert female patient. She is wheelchair bound currently. Has significant discomfort with the right hip, weightbearing. VITAL SIGNS: She is 134 pounds, 5 foot 2 inches tall, 98 degrees temperature. Blood pressure is 128/78, pulse is 76 and respirations are 16. NECK: Supple without adenopathy or jugular venous distention. There were no carotid bruits appreciated. LUNGS: Clear to auscultation without rales or wheeze throughout. HEART: Regular rate and rhythm. ABDOMEN: Bowel sounds were present. EXTREMITIES: Examination of the hip revealed well healed surgical scarring from her AO screw placement. Otherwise, the skin was intact. She had pain with internal and external rotation which were both significantly decreased on examination today. The limb is neurovascularly intact. LABORATORY DATA: Chest x-ray showed findings compatible with chronic obstructive pulmonary disease (COPD). Otherwise no acute cardiopulmonary disease processes. EKG showed sinus tachycardia 104 beats per minute. Prothrombin time 13.3, INR 1.00. CBC showed an MCV of 96.7 otherwise, within normal limits. Sedimentation rate was 30. UA showed a cloudy appearance. 1+ leukocyte esterase. 19 white blood cells. 4 red blood cells and 1+ bacteria. Otherwise within normal limits with specific gravity of 1.018. Glucose 96, BUN 9, creatinine 0.63. Sodium 138, potassium 3.8. Urine culture showed E. coli greater than 100,000 units and nasal and sinus cultures showed normal shawn. IMPRESSION: Asymptomatic urinary tract infection and symptomatic failure of a AO screw reduction for intertrochanteric right hip fracture. PLAN: The plan will be to place on Nitrofurantoin 100 mg twice a day up until her surgery. She knows not to take any medications the day of her surgery. Also she is consented for a right total hip arthroplasty by Dr. Roney Schumacher.
[2017-07-06] VITALS (7 sets, daily range): BP systolic 95–123; BP diastolic 60–69; O2SAT 96
[~2017-07-06] VITALS: Ht 157.5 cm; Wt 61.2 kg
[2017-07-06] MEDS ORDERED: VANCOMYCIN HCL 1,000 MG, VIAL MATE ADAPTER 1 EACH in D5W 250 ML IV ONE ×2 (11:00→23:00)
[2017-07-06] MEDS ORDERED: LR 1,000 ML IV ONE (11:00)
[2017-07-06] MEDS ORDERED: PROPOFOL 200 MG/20 ML VIAL As Ordered ONE ×2 (12:46→14:13)
[2017-07-06] MEDS ORDERED: fentaNYL 100 MCG/2 ML INJECTION (J3010) As Ordered ONE ×2 (12:46→14:13)
[2017-07-06] MEDS ORDERED: MIDAZOLAM INJ 2 MG/2 ML VIAL (J2250) As Ordered ONE (12:46)
[2017-07-06] MEDS ORDERED: LIDOCAINE 2% INJ 100 MG/5 ML SDV (FOR ANES.) As Ordered ONE (12:46)
[2017-07-06] MEDS ORDERED: ceFAZolin 1GM INJ (J0690) As Ordered ONE (13:55)
[2017-07-06] MEDS ORDERED: TRANEXAMIC ACID 100 MG/ML 10ML VIAL As Ordered ONE (13:55)
[2017-07-06] MEDS ORDERED: CLINDAMYCIN INJ 900MG/6ML VIAL As Ordered ONE (13:58)
[2017-07-06] MEDS ORDERED: BUPIVACAINE HCL 0.25% 30 ML VIAL As Ordered ONE (14:08)
[2017-07-06] MEDS ORDERED: BUPIVACAINE LIPOSOME/PF 1.3% 20 ML VIAL (13.3MG/ML)(EXPAREL) As Ordered ONE (14:08)
[2017-07-06] MEDS ORDERED: ROCURONIUM BROMIDE 50 MG/5 ML VIAL/SYRINGE As Ordered ONE (14:13)
[2017-07-06] MEDS ORDERED: LIDOCAINE 2% INJ 100 MG/5 ML SYRINGE As Ordered ONE (14:13)
[2017-07-06] MEDS ORDERED: CLINDAMYCIN 600 MG/50 ML PREMIX BAG As Ordered ONE (15:01)
[2017-07-06] MEDS ORDERED: PHENYLephrine HCL 500 MCG/5 ML (100MCG/ML) SYRINGE (J2370) As Ordered ONE (15:36)
[2017-07-06] MEDS ORDERED: dexameTHASONE 4 MG/ML 1ML VIAL (J1100) As Ordered ONE (15:36)
[2017-07-06] MEDS ORDERED: ONDANSETRON 4MG/2ML VIAL (J2405) As Ordered ONE ×2 (15:36→17:57)
[2017-07-06] MEDS ORDERED: HYDROmorphone HCL 2 MG/ML 1ML VIAL (J1170) As Ordered ONE (15:39)
[2017-07-06] MEDS ORDERED: ePHEDrine SULFATE 25 MG/5 ML(5MG/ML) SYRINGE As Ordered ONE (15:50)
[2017-07-06] MEDS ORDERED: NEOSTIGMINE 10 MG/10 ML VIAL (J2710) As Ordered ONE (16:21)
[2017-07-06] MEDS ORDERED: ESMOLOL INJ 100MG/10ML VIAL As Ordered ONE (16:21)
[2017-07-06] MEDS ORDERED: GLYCOPYRROLATE INJ 0.2 MG/ML 2 ML VIAL As Ordered ONE (16:21)
[2017-07-06] MEDS ORDERED: VANCOMYCIN 1000 MG/20 ML VIAL (J3370) As Ordered ONE (16:41)
[2017-07-06] MEDS ORDERED: MORPHINE 1MG/ML IN 0.9% NACL 100ML IV BAG As Ordered ONE (17:27)
[2017-07-06] MEDS ORDERED: ONDANSETRON 4MG/2ML VIAL (J2405) IV PRN (18:00)
[2017-07-06] MEDS ORDERED: PERCOCET 5MG/325MG TAB PO PRN (18:00)
[2017-07-06] MEDS ORDERED: LR 1,000 ML IV SCH ×2 (18:00)
[2017-07-06] MEDS ORDERED: fentaNYL 100 MCG/2 ML INJECTION (J3010) IV PRN (18:00)
--- NOTE | 2017-07-06 18:12 | IPNPDOC ---
Text Note Date of Service The patient was seen on 07/06/17. NOTE Chief complaint: Presented to [facility] for an elective Right hip replacement. History of present illness: Patient is a 66 female with a PMHx of DVT 3 years prior (s/p thrombectomy) who presented to [facility] for an elective right hip replacement with Dr. Roney Uriostegui. She failed outpatient therapy with Percocet and had difficulty with ambulation. She received medical clearance with Dr. Briceño, also her primary care provider. Currently patient denies any chest pain, difficulty breathing, cough, nausea, vomiting, abdominal pain, constipation or diarrhea. She has not had a bowel movement since the operation. Past Medical History: DVT 3 years prior (s/p thrombectomy and 6 months of Coumadin) Past Surgical History: 2 sections Right hip with elier and screws 8 years prior, then removed Family History: Noncontributory given advanced age Social History: - Denies the use of illicit drugs; social alcohol use; smoker, quit 3 years ago , thirty-year history at one pack per day - Denies recent travel or sick contacts Review of Systems: Negative review of systems otherwise stated in HPI Physical exam: - Vitals: BP 120/60, HR 100, RR 16, Sat 96%NC3L, Temp 98.1F - General: Lying in bed, No acute distress, Speaking in full sentences, AAOx3 - HEENT: NC, AT, PERRLA, EOMI - CVS: RRR, +S1S2 - Lungs: Fair air entry bilaterally, no wheezing / rales / rhonchi - Abdomen: Soft, Non-distended, Non-tender - Extremities: No lower extremity edema, No calf tenderness, Right hip dressing in place - Neuro: No focal motor or sensory deficit - Skin: No visible rashes Assessment and Plan: Right hip pain - s/p Right hip total arthroplasty - Failed medical management - Pain management and anticoagulation as per surgical team DVT - 3 years prior - s/p thrombectomy and 6 months of Coumadin DVT prophylaxis - Anticoagulation as per surgical team VS,Nery, I+O VS, Nery, I+O Vital Signs Date Time Temp Pulse Resp B/P (MAP) Pulse Ox O2 Delivery O2 Flow Rate FiO2 07/06/17 18:07 97.6 97 16 114/56 (75) 98 Nasal Cannula 3 I&O- Last 24 Hours up to 6 AM 07/07/17 06:00 Output Total 625 ml Balance -625 ml ESTER BENNETT MD Jul 06, 2017 18:12
[2017-07-06] MEDS ORDERED: NALOXONE INJ 0.4 MG/1 ML VIAL (J2310) IV PRN (18:15)
[2017-07-06] MEDS ORDERED: MORPHINE 1MG/ML IN 0.9% NACL 100ML IV BAG IV PRN (18:15)
[2017-07-06] MEDS ORDERED: FLEET ENEMA PR PRN (18:15)
[2017-07-06] MEDS ORDERED: diphenhydrAMINE INJ 50MG/ML VIAL (J1200) IV PRN (18:15)
[2017-07-06] MEDS ORDERED: NALBUPHINE HCL 10 MG/ML AMP (J2300) IV PRN (18:15)
[2017-07-06] MEDS ORDERED: ACETAMINOPHEN TAB 650MG DOSE (2X325MG) PO PRN (18:15)
[2017-07-06] MEDS ORDERED: EPIDURAL/PCA KEYS XX PRN (18:15)
--- NOTE | 2017-07-06 18:34 | RO ---
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 OPERATIVE PROCEDURE: 1. Removal of trochanteric femoral nail and interlocking screw. 2. Right hip arthroplasty using an AML size 13.5 stem with a standard offset with a -3 sleeve and a 45 mm ball. Prosthesis made by [employer]. SURGEON: Isai Schumacher MD COLLAR BASTER: Ezequiel Saunders ANESTHESIA: General endotracheal tube. COMPLICATIONS: None. SPECIMENS: Fracture fragments, the femoral head. ESTIMATED BLOOD LOSS: 275 mL DESCRIPTION OF PROCEDURE: She was given a gram of vancomycin preoperatively and then a successful general endotracheal anesthetic was established. A Morse catheter was placed. She was placed in a lateral decubitus position on the [place] hip positioner and then her right hip was then carefully prepped and draped in the usual sterile fashion. After an appropriate time out, I then made a longitudinal incision on the lateral aspect of her right hip incorporating the prior incision used to fix her fractured hip. The tensor fascia was divided in line of the skin incision and then we identified the cephalomedullary screw and then distally I could palpate the interlocking screw, but it was quite distal under the skin and I made a small counter stab incision distally right over the screw and I was able to insert the screwdriver and removed the distal interlocking screw. We then addressed the proximal portion of the femur. I did the standard approach for a hip by splitting the gluteus medius at the anterior one-third junction, carefully dissecting off the greater trochanter proximally. It took a bit of time, however, to find the proximal portion of the trochanteric femoral nail. It was buried into the piriformis fossa, it was entering it through the anterior approach and I had to rongeur away some soft tissue and bone to get at the trochanteric nail, and then I had to make a counter incision in the abductors, basically it was a longitudinal split to come right down onto the nail. I then loosened the screw that holds the cephalomedullary portion of the nail and then I turned out attention to the cephalomedullary nail exiting out through the lateral femoral cortex and inserted the reverse mathematical engineer removing device and then removed the cephalomedullary implant, then turned out attention back to the proximal femur and then inserted the extractor into the tip of the nail and removed the nail without difficulty. At this point, I tried to expose the proximal femur as best as possible but there was a significant amount of bony overgrowth from the attempted healing of this fracture with a significant amount of hypertrophic callus. Clearly there was a nonunion with a large portion of the femoral head and neck. But it was difficult to get this to dislocate because of the significant amount of callus in the area and thus I used the saw to cut off the femoral neck so I could get better access. Once, that was done, I was able to dislocate the hip better and get it produced up into the wound. Then, I used a combination of the Wills elevators and then half inch curved osteotomes to subperiosteal dissect and shell out the obvious pieces of nonunion fracture fragments. There was a large portion of the posterior and the medial calcar. It was part of the lesser trochanter that had to be shelled out of the developing callus and then removed. There was quite a bit of fractured membrane within the intramedullary canal of the femur, but it took quite a bit of time to identify all the fracture fragments and remove most such that we get back down to a stable femoral shaft construct. Once that had been done and the area thoroughly debrided, I curetted out the membrane from the intramedullary canal, copiously pulsatile lavage irrigated out the canal as we did several times throughout the operation. Then, I used the 9 mm starter reamer and was able to right down the center of the shaft and I advanced up to 13 mm and then we elected to use the 13.5 AML stem. I elected not to do a cemented hip because of the holes in the femur from the prior nail fixation device as well as the loss of significant amount of proximal calcar bone and I thought that the AML device would be an excellent choice to help provide a nice stable stem construct. So once we had done irrigating, I broached the femoral canal up to a size 13. Then, we did a trial reduction and the -3 gave us good stability when we reduced the hip with a 44 mm head that was measured on the back table. She was very stable to flexion internal and external rotation and there was no soft tissue telescoping, thus I did not think a standard or 0 neck length was indicated. So, at this point I removed all the trial components, irrigated copiously the acetabulum again and the intramedullary canal and then we placed the AML stem, making sure we had the appropriate neutral anteversion as we inserted the prosthesis down to the point where it previously seemed where the broach would sit up against the medial calcar. Once there was very good tight fixation, we then trialed once again using the -3 head with a 44 mm diameter ball and again the hip reduced nicely and it was good and stable with internal and external rotation. Then redislocated the hip, dried the trunnion, placed the -3 sleeve and then the 33 ball, then reduced the hip after irrigating once again. I then used one-third of gram of vancomycin powder into the depth of the wound after irrigating copiously, then we closed the hip capsule and the gluteus minimus and medius back as anatomically as possible to the greater trochanter, irrigating again between layers then another third of a gram of vancomycin was placed beneath the tensor fascia layer, then we closed the tensor fascia with running #1 Stratafix, irrigating again between layers, then the rest of the vancomycin powder was placed in the superficial soft tissues and then we closed the deep subdermal tissues with interrupted #2-0 PDS sutures. The skin was closed with papi, covered by Adaptic dry sterile bulky dressing. She was then awakened from general endotracheal tube anesthesia after having tolerated the procedure well, turned supine and transferred to her stretcher and then to the recovery room in stable condition. There were no intraoperative complications.
[2017-07-06] MEDS ORDERED: WARFARIN SOD 5 MG TAB PO ONE (19:00)
[2017-07-07 02:00] VITALS: BP 120/60
[2017-07-07 06:00] VITALS: BP 128/60
[2017-07-07] MEDS ORDERED: ONDANSETRON 4 MG TAB (S0181) PO PRN (06:30)
[2017-07-07] MEDS ORDERED: PERCOCET 5MG/325MG TAB PO PRN (06:30)
[2017-07-07 06:35] LABS: MEAN CORPUSCULAR HEMOGLOBIN 31.6 pg (27.0-33.0); MEAN CORPUSCULAR VOLUME 95.7 fl (80.0-96.0); PLATELET COUNT, AUTOMATED 313 10^3/uL (150-450); RED CELL DISTRIBUTION WIDTH 12.7 % (11.5-14.5); WHITE BLOOD COUNT 15.2 10^3/uL (4.0-10.0)
[2017-07-07 06:49] LABS: ANION GAP 5 MEQ/L (8-16); BLOOD UREA NITROGEN 10 MG/DL (7-18); CALCIUM LEVEL 8.9 MG/DL (8.8-10.2); CARBON DIOXIDE LEVEL 29 MEQ/L (21-32); CHLORIDE LEVEL 99 MEQ/L (98-107); CREATININE FOR GFR 0.73 MG/DL (0.55-1.02); GLOMERULAR FILTRATION RATE > 60.0 (>45); GLUCOSE, FASTING 125 MG/DL (80-110); INR 1.22; POTASSIUM SERUM 5.1 MEQ/L (3.5-5.1); SODIUM LEVEL 133 MEQ/L (136-145)
--- NOTE | 2017-07-07 08:51 | REP ---
Clinical: Status post arthroplasty. Technique: AP and cross-table lateral views. Findings: The patient is status post right hip replacement with normal positioning and appearance to the femoral and acetabular components. Overlying postsurgical changes appreciated. Impression: Satisfactory right hip replacement radiographs. Signed by Carlos Hendricks MD 07/07/2017 08:43 A
[2017-07-07] MEDS: VITAMIN D 1,000 INTERNATIONAL UNITS TABLET PO SCH (09:10)
[2017-07-07] MEDS: MOM 30ML SUSPENSION UDC PO SCH (09:10)
[2017-07-07] MEDS: SENOKOT S TAB PO SCH ×2 (09:10→21:15)
[2017-07-07] MEDS: MIRALAX *UNIT DOSE* 17GM PACKET PO SCH (09:10)
[2017-07-07] MEDS: PERCOCET 5MG/325MG TAB PO PRN ×4 (09:11→21:16)
[2017-07-07] MEDS: MULTIVITAMINS/MINERALS THERAP 1 TAB PO SCH (09:11)
[2017-07-07 10:00] VITALS: BP 128/60
[2017-07-07 14:00] VITALS: BP 113/63
--- NOTE | 2017-07-07 16:16 | IPNPDOC ---
Subjective Date Seen The patient was seen on 07/07/17. Subjective Chief Complaint/HPI The patient is a 66-year-old female admitted with a reason for visit of Painful Retained Hardware Right Hip. Constitutional: Denies: Chills, Fever Eyes: Denies: Pain ENT: Denies: Head Aches Skin: Denies: Rash Pulmonary: Denies: Dyspnea, Cough Cardiovascular: Denies: Chest Pain Gastrointestinal: Denies: Nausea, Vomiting Genitourinary: Denies: Dysuria Objective Physical Examination General Exam: Positive: Alert Neck Exam: Positive: Supple, Negative: JVD Chest Exam: Positive: Clear to auscultation Heart Exam: Positive: Rate Normal Abdomen Exam: Positive: Normal bowel sounds Extremity Exam: Positive: Clubbing, Negative: Edema Assessment /Plan Problems (1) Hip fracture, right Problem Text: POD 1 R hip hardware removal c THR per Dr. Medina (2) Anemia Status: Chronic Problem Text: 07/07 mild postop anemia hgb 10.4-tf (3) Tobacco dependence Status: Chronic Problem Text: Continues e cigs as outpx (4) Emphysema Status: Chronic Problem Text: 06/2017 preop CXR c emphysematous change-preop SaO2 98% on RA (5) PVD (peripheral vascular disease) Status: Chronic Response to Treatment: Stable Problem Text: Patient remains asx 08/2016 CTA BLE: Extensive atherosclerotic vascular calcification with multiple stenoses. Both ute superficial femoral arteries are occluded. There is a patent left common to external iliac artery graft and another patent left fem-pop graft is seen. Poor left-sided runoff is seen. The calf runoff is a little better on the right , but the superficial femoral artery is occluded and reconstituted in the level of the adductor canal. Multiple right popliteal artery calcific stenoses are seen. Bilateral renal artery stenoses are seen. 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 (6) PE (pulmonary thromboembolism) Status: Chronic Problem Text: No recurrent sx-titrating VKA 08/2016 RLL small PE/DVT Plan/VTE VTE Prophylaxis Ordered?: Yes VS, I&O, 24H, Fishbone Vital Signs/I&O Vital Signs Date Time Temp Pulse Resp B/P (MAP) Pulse Ox O2 Delivery O2 Flow Rate FiO2 07/07/17 14:00 97.8 90 18 113/63 (80) 93 Room Air 07/07/17 06:00 2.0 I&O- Last 24 Hours up to 6 AM 07/08/17 06:00 Intake Total 1055 ml Output Total 0 ml Balance 1055 ml Laboratory Data 24H LABS Laboratory Tests 2 07/07/17 06:02: Nucleated Red Blood Cells % (auto) 0.0, Prothrombin Time 15.6H, Prothromb Time International Ratio 1.22, Anion Gap 5L, Glomerular Filtration Rate > 60.0, Blood Urea Nitrogen 10, Creatinine 0.73, Sodium Level 133L, Potassium Level 5.1 , Chloride Level 99, Carbon Dioxide Level 29, Calcium Level 8.9 CBC/BMP Laboratory Tests 07/07/17 06:02 Red Blood Count 3.29 L, Mean Corpuscular Volume 95.7, Mean Corpuscular Hemoglobin 31.6, Mean Corpuscular Hemoglobin Concent 33.0, Red Cell Distribution Width 12.7, Calcium Level 8.9 Hilton Aguiar M.D. Jul 07, 2017 16:16
[2017-07-07] MEDS ORDERED: WARFARIN SOD 5 MG TAB PO ONE (17:00)
[2017-07-07 22:00] VITALS: BP 144/62
[2017-07-07 23:44] VITALS: O2SAT 95
[2017-07-08] MEDS: PERCOCET 5MG/325MG TAB PO PRN ×5 (01:04→18:07)
[2017-07-08 06:00] VITALS: BP 110/56
[2017-07-08 06:29] LABS: MEAN CORPUSCULAR HEMOGLOBIN 32.2 pg (27.0-33.0); MEAN CORPUSCULAR HGB CONC 33.1 g/dl (32.0-36.5); MEAN CORPUSCULAR VOLUME 97.4 fl (80.0-96.0); PLATELET COUNT, AUTOMATED 253 10^3/uL (150-450); RED CELL DISTRIBUTION WIDTH 13.1 % (11.5-14.5); WHITE BLOOD COUNT 11.1 10^3/uL (4.0-10.0)
[2017-07-08 06:44] LABS: INR 1.86
[2017-07-08 06:47] LABS: ANION GAP 3 MEQ/L (8-16); BLOOD UREA NITROGEN 9 MG/DL (7-18); CALCIUM LEVEL 8.1 MG/DL (8.8-10.2); CARBON DIOXIDE LEVEL 30 MEQ/L (21-32); CHLORIDE LEVEL 105 MEQ/L (98-107); CREATININE FOR GFR 0.56 MG/DL (0.55-1.02); GLOMERULAR FILTRATION RATE > 60.0 (>45); GLUCOSE, FASTING 115 MG/DL (80-110); POTASSIUM SERUM 4.7 MEQ/L (3.5-5.1); SODIUM LEVEL 138 MEQ/L (136-145)
[2017-07-08] MEDS ORDERED: PERC5TAB12 PO (08:07)
[2017-07-08] MEDS ORDERED: COUM2.5T17 PO (08:07)
[2017-07-08] MEDS ORDERED: MS C15TA8 PO (08:07)
[2017-07-08] MEDS: MIRALAX *UNIT DOSE* 17GM PACKET PO SCH (09:31)
[2017-07-08] MEDS: SENOKOT S TAB PO SCH ×2 (09:31→20:21)
[2017-07-08] MEDS: MOM 30ML SUSPENSION UDC PO SCH (09:31)
[2017-07-08] MEDS: MULTIVITAMINS/MINERALS THERAP 1 TAB PO SCH (09:32)
[2017-07-08] MEDS: MORPHINE 15 MG SA TAB PO SCH ×2 (09:32→20:21)
[2017-07-08] MEDS: VITAMIN D 1,000 INTERNATIONAL UNITS TABLET PO SCH (09:32)
--- NOTE | 2017-07-08 10:20 | IPNPDOC ---
Subjective Date Seen The patient was seen on 07/08/17. Subjective Chief Complaint/HPI The patient is a 66-year-old female admitted with a reason for visit of Painful Retained Hardware Right Hip. Events since last encounter Continues with pain to right hip. managed by Ortho. Getting OOB with PT. Constitutional: Denies: Chills, Fever, Night Sweats ENT: Denies: Head Aches, Ear Pain, Dysphagia Skin: Denies: Rash, Lesions, Breakdown Pulmonary: Denies: Dyspnea, Cough Objective Physical Examination General Exam: Positive: Alert Neck Exam: Positive: Supple, Negative: JVD Chest Exam: Positive: Clear to auscultation Heart Exam: Positive: Rate Normal Abdomen Exam: Positive: Normal bowel sounds Extremity Exam: Positive: Clubbing, Negative: Edema Assessment /Plan Problems (1) Hip fracture, right Problem Text: POD 2 R hip hardware removal c THR per Dr. Medina (2) Anemia Status: Chronic Problem Text: 07/08/2017: monitor 07/07 mild postop anemia hgb 10.4-tf (3) Tobacco dependence Status: Chronic Problem Text: Continues e cigs as outpx (4) Emphysema Status: Chronic Problem Text: 06/2017 preop CXR c emphysematous change-preop SaO2 98% on RA (5) PVD (peripheral vascular disease) Status: Chronic Response to Treatment: Stable Problem Text: Patient remains asx 08/2016 CTA BLE: Extensive atherosclerotic vascular calcification with multiple stenoses. Both [place] superficial femoral arteries are occluded. There is a patent left common to external iliac artery graft and another patent left fem-pop graft is seen. Poor left-sided runoff is seen. The calf runoff is a little better on the right , but the superficial femoral artery is occluded and reconstituted in the level of the adductor canal. Multiple right popliteal artery calcific stenoses are seen. Bilateral renal artery stenoses are seen. 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 (6) PE (pulmonary thromboembolism) Status: Chronic Problem Text: No recurrent sx-titrating VKA 08/2016 RLL small PE/DVT Plan/VTE VTE Prophylaxis Ordered?: Yes Plan Family Medicine Attending Note: I saw and examined Ms. Yan this afternoon; I discussed her care with JUDY Dickerson and I agree with her note as documented. At this point, she voices no concerns. H/H is down today, perhaps 2/2 surgery. At this time, all of her medical problems are stable. Thank you for involving us in her care; at this point we will sign off but will be happy to assist if a need arises. (KES) VS, I&O, 24H, Fishbone Vital Signs/I&O Vital Signs Date Time Temp Pulse Resp B/P (MAP) Pulse Ox O2 Delivery O2 Flow Rate FiO2 07/08/17 09:32 20 07/08/17 06:00 98.2 82 110/56 (74) 94 Room Air 07/07/17 06:00 2.0 I&O- Last 24 Hours up to 6 AM 07/09/17 06:00 Intake Total 160 ml Output Total 0 ml Balance 160 ml Laboratory Data 24H LABS Laboratory Tests 2 07/08/17 06:11: Nucleated Red Blood Cells % (auto) 0.0, Prothrombin Time 22.0H, Prothromb Time International Ratio 1.86, Anion Gap 3L, Glomerular Filtration Rate > 60.0, Blood Urea Nitrogen 9, Creatinine 0.56, Sodium Level 138, Potassium Level 4.7, Chloride Level 105, Carbon Dioxide Level 30, Calcium Level 8.1L CBC/BMP Laboratory Tests 07/08/17 06:11 Red Blood Count 2.73 L, Mean Corpuscular Volume 97.4 H, Mean Corpuscular Hemoglobin 32.2, Mean Corpuscular Hemoglobin Concent 33.1, Red Cell Distribution Width 13.1, Calcium Level 8.1 L Lisseth Clark Jul 08, 2017 10:20 GASPER LINDER MD Jul 08, 2017 16:48
[2017-07-08 14:00] VITALS: BP 136/60
[2017-07-08] MEDS ORDERED: WARFARIN SOD 2.5 MG TAB PO ONE (17:00)
[2017-07-08 22:00] VITALS: BP 132/64
[2017-07-09] MEDS: PERCOCET 5MG/325MG TAB PO PRN ×5 (00:36→22:06)
[2017-07-09 06:00] VITALS: BP 127/61
[2017-07-09 06:47] LABS: MEAN CORPUSCULAR HEMOGLOBIN 31.3 pg (27.0-33.0); MEAN CORPUSCULAR HGB CONC 31.9 g/dl (32.0-36.5); MEAN CORPUSCULAR VOLUME 97.9 fl (80.0-96.0); PLATELET COUNT, AUTOMATED 276 10^3/uL (150-450); RED CELL DISTRIBUTION WIDTH 13.1 % (11.5-14.5); WHITE BLOOD COUNT 11.3 10^3/uL (4.0-10.0)
[2017-07-09 07:08] LABS: ANION GAP 5 MEQ/L (8-16); BLOOD UREA NITROGEN 8 MG/DL (7-18); CALCIUM LEVEL 8.5 MG/DL (8.8-10.2); CARBON DIOXIDE LEVEL 31 MEQ/L (21-32); CHLORIDE LEVEL 103 MEQ/L (98-107); CREATININE FOR GFR 0.53 MG/DL (0.55-1.02); GLOMERULAR FILTRATION RATE > 60.0 (>45); GLUCOSE, FASTING 90 MG/DL (80-110); POTASSIUM SERUM 4.7 MEQ/L (3.5-5.1); SODIUM LEVEL 139 MEQ/L (136-145)
[2017-07-09] MEDS: MIRALAX *UNIT DOSE* 17GM PACKET PO SCH (08:45)
[2017-07-09] MEDS: MOM 30ML SUSPENSION UDC PO SCH (08:45)
[2017-07-09] MEDS: MULTIVITAMINS/MINERALS THERAP 1 TAB PO SCH (08:45)
[2017-07-09] MEDS: SENOKOT S TAB PO SCH ×2 (08:45→20:35)
[2017-07-09] MEDS: VITAMIN D 1,000 INTERNATIONAL UNITS TABLET PO SCH (08:45)
[2017-07-09] MEDS: MORPHINE 15 MG SA TAB PO SCH ×2 (08:45→20:36)
[2017-07-09 14:00] VITALS: BP 122/92
[2017-07-09] MEDS ORDERED: WARFARIN SOD 2.5 MG TAB PO ONE (17:00)
[2017-07-09 22:00] VITALS: BP 135/58
[2017-07-10] MEDS: PERCOCET 5MG/325MG TAB PO PRN ×3 (03:36→12:12)
[2017-07-10 06:00] VITALS: BP 132/69
[2017-07-10 06:47] LABS: INR 1.64
[2017-07-10] MEDS: SENOKOT S TAB PO SCH (07:54)
[2017-07-10] MEDS: MIRALAX *UNIT DOSE* 17GM PACKET PO SCH (07:54)
[2017-07-10] MEDS: MOM 30ML SUSPENSION UDC PO SCH (07:54)
[2017-07-10] MEDS: MULTIVITAMINS/MINERALS THERAP 1 TAB PO SCH (07:57)
[2017-07-10] MEDS: MORPHINE 15 MG SA TAB PO SCH (07:57)
[2017-07-10] MEDS: VITAMIN D 1,000 INTERNATIONAL UNITS TABLET PO SCH (07:57)
--- NOTE | 2017-07-13 10:29 | DSES ---
DATE OF ADMISSION: 07/06/2017 DATE OF DISCHARGE: 07/10/2017 ATTENDING PHYSICIAN: Dr. Schumacher. ADMITTING DIAGNOSIS: Right proximal femur fracture with malunion and painful hardware. DISCHARGE DIAGNOSIS: Right proximal femur fracture with malunion and painful hardware status post conversion to a right total hip arthroplasty. HISTORY: Patient is a 66-year-old female that suffered a right hip intertrochanteric femur fracture and had a subsequent AO screw. Unfortunately the repair failed and she consented for removal of the retained hardware and conversion to a right total hip arthroplasty. OPERATION PERFORMED: Removal of trochanteric femoral nail and interlocking screw and conversion to a right total hip arthroplasty. HOSPITAL COURSE: The patient underwent a removal of a trochanteric femoral nail and interlocking screw and subsequent right total hip arthroplasty under general anesthesia. Surgery was uneventful and her hospital course was without complication. She was up with physical therapy per their protocol weight bearing as tolerated on the right lower extremity. She was discharged on oral pain medications and will resume her preoperative medications and diet. She will take her Coumadin and use her thromboembolic deterrent stockings for 30 days postoperatively to prevent deep venous thrombosis. She will followup in our office in 12-14 days for wound check and staple removal. She is encouraged to contact our office if there is any increased pain, drainage, redness, numbness or tingling in the extremity, fever greater than 101 degrees or any other concerns. Please see medical record for additional details. REJI
== END 2017-07-10 13:52 | disposition home health service (06) | DRG 470 ==
LOC: M OR 10:45 → EDSTATUS 16:30 → M MS5PR 18:36
PROVIDERS: ADMIT Orthopaedic Surgery; ATTEND Orthopaedic Surgery
PROC: 0QP604Z Removal of Internal Fixation Device from Right Upper Femur, Open Approach (ICD-10-PCS; 2017-07-06)
PROC: 0SR90JA Replacement of Right Hip Joint with Synthetic Substitute, Uncemented, Open Approach (ICD-10-PCS; principal; 2017-07-06 13:45)
DX: T84.124A Displacement of internal fixation device of right femur, initial encounter (principal); S72.141K Displaced intertrochanteric fracture of right femur, subsequent encounter for closed fracture with nonunion; I27.82 Chronic pulmonary embolism; J43.9 Emphysema, unspecified; I73.9 Peripheral vascular disease, unspecified; Z88.0 Allergy status to penicillin; Z79.899 Other long term (current) drug therapy; Z87.891 Personal history of nicotine dependence; Z86.718 Personal history of other venous thrombosis and embolism; Y82.9 Unspecified medical devices associated with adverse incidents

== ENCOUNTER → 2017-07-13 | Outpatient (REF) | payer MEDICARE, MEDICAID ==
[~2017-07-13] MED LIST changes: +COUM2.5T17 PO; +MS C15TA8 PO
[2017-07-13 16:29] LABS: INR 2.1
== END ==
LOC: M LAB REF 15:27
PROVIDERS: ATTEND Nurse Practitioner Family
DX: Z79.01 Long term (current) use of anticoagulants (principal)

== ENCOUNTER → 2017-07-16 | Outpatient (REF) | payer MEDICARE, MEDICAID ==
[2017-07-16 15:48] LABS: INR 1.53
== END ==
LOC: M SHH 15:01
PROVIDERS: ATTEND Nurse Practitioner Family
DX: Z79.01 Long term (current) use of anticoagulants (principal)

== ENCOUNTER → 2017-07-23 | Outpatient (REF) | payer MEDICARE, MEDICAID ==
[~2017-07-23] MED LIST changes: +OXYC1TAB23 PO
[2017-07-23 14:02] LABS: INR 1.34
== END ==
LOC: M SHH 13:31
PROVIDERS: ATTEND Nurse Practitioner Family
DX: Z51.81 Encounter for therapeutic drug level monitoring (principal); Z79.01 Long term (current) use of anticoagulants

== ENCOUNTER → 2017-07-27 | Outpatient (REF) | payer MEDICARE, MEDICAID ==
[2017-07-27 15:37] LABS: INR 1.14
== END ==
LOC: M SHH 15:01
PROVIDERS: ATTEND Nurse Practitioner Family
DX: Z51.81 Encounter for therapeutic drug level monitoring (principal); Z79.01 Long term (current) use of anticoagulants

== ENCOUNTER 2017-07-29 14:19 | Inpatient (IN) | payer MEDICARE, MEDICAID ==
[~2017-07-29] VITALS: Ht 157.5 cm; Wt 61.4 kg
[~2017-07-29 14:19] MED LIST changes: -OXYC1TAB23 PO
[2017-07-29] MEDS ORDERED: ONDANSETRON 4MG/2ML VIAL (J2405) IV ONE (15:00)
[2017-07-29] MEDS: MORPHINE 4 MG/ML 1ML SYRINGE IV PRN ×2 (15:19→17:13)
[2017-07-29 15:29] LABS: MEAN CORPUSCULAR HEMOGLOBIN 30.8 pg (27.0-33.0); MEAN CORPUSCULAR HGB CONC 32.1 g/dl (32.0-36.5); MEAN CORPUSCULAR VOLUME 95.7 fl (80.0-96.0); NEUTROPHILS % 66.2 % (36.0-66.0); PLATELET COUNT, AUTOMATED 423 10^3/uL (150-450); RED CELL DISTRIBUTION WIDTH 13.4 % (11.5-14.5); WHITE BLOOD COUNT 6.9 10^3/uL (4.0-10.0)
[2017-07-29 15:30] LABS: BASO % 0.6 % (0.0-1.0); EOS # 0.1 10^3/uL (0.0-0.50); EOS % 1.3 % (0.0-3.0); IMMATURE GRANULOCYTE % 0.3 % (0-0); LYMPH # 1.5 10^3/uL (1.5-4.5); LYMPH % 22.1 % (24.0-44.0); MONO # 0.7 10^3/uL (0.0-0.8); MONO % 9.5 % (0.0-5.0); NEUTROPHILS # 4.6 10^3/uL (1.8-7.7)
[2017-07-29 15:45] LABS: ANION GAP 7 MEQ/L (8-16); BLOOD UREA NITROGEN 10 MG/DL (7-18); CALCIUM LEVEL 9.1 MG/DL (8.8-10.2); CARBON DIOXIDE LEVEL 29 MEQ/L (21-32); CHLORIDE LEVEL 102 MEQ/L (98-107); CREATININE FOR GFR 0.55 MG/DL (0.55-1.02); GLOMERULAR FILTRATION RATE > 60.0 (>45); GLUCOSE, FASTING 85 MG/DL (80-110); POTASSIUM SERUM 4.5 MEQ/L (3.5-5.1); SODIUM LEVEL 138 MEQ/L (136-145)
--- NOTE | 2017-07-29 15:57 | REP ---
Pelvis/right hip: Three views. History: Postop pain and swelling. Comparison study July 07, 2017. Findings: AP view of the pelvis and AP and frog-leg views of the right hip are obtained. The prosthetic hip joint is normally aligned. Vascular calcification is noted. There is slight fragmentation of the greater trochanter bone but this is unchanged. No acute bony destructive lesion is seen. No fracture is seen. There is a vascular stent graft in place along the course of the left iliac artery. Old pin tracks are seen in the proximal femur on the left. Impression: Status post right hip replacement. No acute bony abnormality. Signed by Everardo Tripp MD 07/29/2017 05:01 P
[2017-07-29 16:03] LABS: ERYTHROCYTE SEDIMENTATION RATE 59 mm/hr (0-30)
[2017-07-29 16:29] LABS: INR 0.97
--- NOTE | 2017-07-29 17:04 | REP ---
ULTRASOUND RIGHT HIP SOFT TISSUES: Real-time sonographic evaluation of the right hip soft tissues performed. The patient has had hip replacement surgery 07/06/2017. Right hip soft tissues demonstrate a fluid collection measuring 4.0 x 1.9 x 4.3 cm. This is nonspecific. Differential diagnosis would include seroma versus abscess. Signed by Taj Muniz MD 07/30/2017 09:17 A
[2017-07-29] MEDS ORDERED: NS 1,000 ML IV SCH (18:45)
[2017-07-29] MEDS ORDERED: PERCOCET 5MG/325MG TAB PO PRN (20:00)
[2017-07-29] MEDS ORDERED: COUM2.5T17 PO (20:01)
[2017-07-29] MEDS ORDERED: OXYC1TAB23 PO (20:02)
[2017-07-29] MEDS ORDERED: MS C15TA8 PO (20:07)
[2017-07-29] MEDS: MORPHINE 2 MG/ML 1ML SYRINGE IV PRN ×2 (20:24→20:50)
[2017-07-29] MEDS: MORPHINE 15 MG SA TAB PO SCH (20:25)
[2017-07-29] MEDS ORDERED: VANCOMYCIN HCL 1,000 MG, VIAL MATE ADAPTER 1 EACH in D5W 250 ML IV ONE (20:45)
[2017-07-29] MEDS: CEFTRIAXONE SOD 2 GM in APPROPRIATE DILUENT 1 EA IV SCH ×2 (21:00→21:20)
[2017-07-29] MEDS ORDERED: diphenhydrAMINE INJ 50MG/ML VIAL (J1200) IV ONE (22:15)
[2017-07-30] MEDS ORDERED: ACETAMINOPHEN TAB 650MG DOSE (2X325MG) PO PRN (02:15)
[2017-07-30 03:00] VITALS: BP 136/66
[2017-07-30] MEDS: PERCOCET 5MG/325MG TAB PO PRN ×6 (04:25→21:43)
[2017-07-30 06:00] VITALS: BP 128/70
--- NOTE | 2017-07-30 06:49 | CR ---
DATE OF CONSULTATION: 07/29/2017 CHIEF COMPLAINT: Right hip pain. HISTORY OF PRESENT ILLNESS: Renu is a 66-year-old female who recently had removal of AL screw and placement of hemiarthroplasty, did well with that surgery. This was accomplished on July 06. Was actually out shopping until recently. Reports that she began to have pain last night, first noted pain when attempting to rise from a chair when she noted the sudden onset of pain in the outside of the right hip. She managed to hobble to bed and then this morning had trouble walking and was brought into the emergency room (ER) for further evaluation. Denies having fever or chills. Attempted to review medications on medical record. Medical record frozen due to active [employer] Word [employer] not able to obtain them. Imaging studies that were reviewed reflect some subtle irregularity at the greater trochanter of the right hip; may be consistent with a nondisplaced or minimally displaced fracture of the greater trochanter. Again unable to access additional labs and imaging studies done at [facility]. I did discuss the results of the imaging with Dr. Desai, which reflected a small-volume fluid accumulation. No elevation of white count, minimal elevation of C-reactive protein (CRP). CLINICAL EXAMINATION: Renu was alert, oriented, and cooperative. Mood and affect are appropriate. Appearing to be her stated age of 66, with healthy skin face, upper and lower extremities. No shortening of the right lower extremity. Right hip: No erythema whatsoever. No crepitus or fluctuance is appreciated. She has tenderness over the greater trochanter, pain with motion of the hip on the right side. Soft, nontender calves. IMPRESSION: Strongly suspect a nondisplaced or minimally-displaced trochanteric fracture on the right. Differential diagnosis, however, may include infection or other pathology. Additional considerations will be to followup her C-reactive protein, offer her pain control medications, and consider aspiration to ensure we are not dealing with some sort of occult infection. Again was unable to access significant portion of the medical record because of difficulty with the electronic system. I further did coordinate with Dr. Swann, hospitalist, for the hospitalist consult. For further details, please refer to the medical record. EXAMINATION Thank you
[2017-07-30 07:02] LABS: BASO % 0.7 % (0.0-1.0); EOS # 0.2 10^3/uL (0.0-0.50); EOS % 2.9 % (0.0-3.0); IMMATURE GRANULOCYTE % 0.4 % (0-0); LYMPH # 1.5 10^3/uL (1.5-4.5); LYMPH % 27.3 % (24.0-44.0); MEAN CORPUSCULAR HGB CONC 31.5 g/dl (32.0-36.5); MEAN CORPUSCULAR VOLUME 95.2 fl (80.0-96.0); MONO # 0.6 10^3/uL (0.0-0.8); MONO % 10.5 % (0.0-5.0); NEUTROPHILS # 3.3 10^3/uL (1.8-7.7); NEUTROPHILS % 58.2 % (36.0-66.0); PLATELET COUNT, AUTOMATED 332 10^3/uL (150-450); RED CELL DISTRIBUTION WIDTH 13.6 % (11.5-14.5); WHITE BLOOD COUNT 5.6 10^3/uL (4.0-10.0)
[2017-07-30 07:12] LABS: INR 1.09
[2017-07-30 07:28] LABS: ALBUMIN 2.8 GM/DL (3.2-5.2); ALBUMIN/GLOBULIN RATIO 0.74 (1.00-1.93); ALKALINE PHOSPHATASE 100 U/L (45-117); ALT/SGPT 11 U/L (12-78); ANION GAP 6 MEQ/L (8-16); AST/SGOT 11 U/L (7-37); BILIRUBIN,TOTAL 0.2 MG/DL (0.2-1.0); BLOOD UREA NITROGEN 10 MG/DL (7-18); CALCIUM LEVEL 8.6 MG/DL (8.8-10.2); CARBON DIOXIDE LEVEL 27 MEQ/L (21-32); CHLORIDE LEVEL 109 MEQ/L (98-107); CREATININE FOR GFR 0.67 MG/DL (0.55-1.02); GLOMERULAR FILTRATION RATE > 60.0 (>45); GLUCOSE, FASTING 79 MG/DL (80-110); SODIUM LEVEL 142 MEQ/L (136-145); TOTAL PROTEIN 6.6 GM/DL (6.4-8.2)
[2017-07-30] MEDS ORDERED: MIRALAX *UNIT DOSE* 17GM PACKET PO PRN (08:30)
[2017-07-30] MEDS: MORPHINE 15 MG SA TAB PO SCH ×2 (08:32→20:35)
[2017-07-30] MEDS: MOM 30ML SUSPENSION UDC PO SCH (08:33)
[2017-07-30] MEDS: ENOXAPARIN 40 MG/0.4 ML SYRINGE (J1650) SC SCH (08:33)
--- NOTE | 2017-07-30 09:18 | REP ---
Right hip CT: There is a right hip hemiarthroplasty. CT images are performed with artifact reduction software. No fracture is identified. There are calcifications in the soft tissues medial to the proximal femoral shaft compatible with myositis ossificans. There is an old healed fracture of the right ischium. No acetabular fracture. No dislocation. Impression: Right hip hemiarthroplasty. There is no acute fracture or dislocation. Soft tissue calcifications medial to the proximal femoral fracture shaft are compatible with myositis ossificans. There is an old healed right ischium fracture. Signed by Taj Byrd MD 07/30/2017 09:08 A
--- NOTE | 2017-07-30 10:12 | CR ---
DATE OF CONSULTATION: 07/30/2017 CHIEF COMPLAINT: Right hip pain. HISTORY OF PRESENT ILLNESS: This is a pleasant 66-year-old female who is presenting today for right hip pain that started on 07/28/2017 evening. The patient states that on her way to bed, she noticed an aching sensation on her right hip that progressively got worse throughout the night. She states on the morning of 07/29/2017, she was unable to stand. She took her normal dose of Percocet two tablets the night before to help sleep, which provided no relief throughout the night. The patient describes the pain as throbbing and rates it as a 9/10. She currently rates the pain 5/10 status post morphine given on the emergency department (ED). The patient uses a walker at home to ambulate. She denies any fevers, chills, any night sweats, any nausea, any vomiting, diarrhea, any worsening tenderness, any swelling at the joint. The patient recently had broken her hip at the intertrochanteric fracture and went under an AO screw placement on 03/20/2017. Due to the failure of reduction status post the AO screw, on 07/06/2017, the patient had a hip arthroplasty done on the right. The patient at this time has no other complaints. REVIEW OF SYSTEMS: Unless stated in the history of present illness, the remaining 11-point systems are negative. CURRENT MEDICATIONS: - morphine sulfate 15 mg tablet twice a day - Percocet/acetaminophen one tablet by mouth every 4 hours as needed for pain - vitamin D 1000 unit capsule by mouth daily - warfarin sodium 5 mg by mouth daily - multivitamins one tablet by mouth daily ALLERGIES: ASPIRIN, IRON, PENICILLIN. PAST MEDICAL HISTORY: The patient has a history of deep venous thromboses (DVTs ) in the left leg. PAST SURGICAL HISTORY: 1. Two sections. 2. Status post AO screw of the right intertrochanteric fracture. 3. Right hip arthroplasty, status post failure of reduction with AO screw. 4. Venous graft placement from left thigh to left lower extremity due to burst vessel after DVT complication. SOCIAL HISTORY: The patient is retired. Quit smoking 3 years ago. Admits to a past smoking of two packs a day for the 50 plus years. Denies drinking alcohol. Denies using any illicit drugs. FAMILY HISTORY: Noncontributory. PHYSICAL EXAMINATION: General: She is a well-nourished, well-developed, in no significant distress. She is an alert female, who is appropriately answering questions. She is currently sitting up appropriately on the bed, not bearing weight on her right hip. Vital signs: Temperature 98.6, pulse 73, respiratory rate 19, blood pressure 156/67, mean arterial pressure (MAP) of 96, pulse oximeter of 98% on room air. Lungs: Clear to auscultate bilaterally. Negative for rales, wheezing, rhonchi. Heart: Regular rate and rhythm. No gallops, murmurs, or rubs appreciated. Abdomen: Soft, nontender. No organomegaly appreciated. Positive bowel sounds throughout the abdomen. Extremities: Negative left hip for any acute lesions. Right hip: A well- healed surgical scar appreciated on the lateral hip. Skin is intact. No erythema, induration, swelling appreciated. Tenderness on slight palpation around the site of the healing surgical scar. Range of motion at the hip joint was limited due to pain. Strong pedal pulses are appreciated bilaterally. LABORATORIES: Hematology: WBC 6.9, hemoglobin of 10.8, hematocrit 33.6, platelet of 423. Chemistry: Sodium 138, potassium of 4.5, chloride of 102, carbon dioxide of 29, the BUN of 10, creatinine of 0.55, a fasting glucose of 85, CRP is 0.95. Coagulation: PT of 12.9 and INR of 0.97. IMAGING: Hip, pelvis x-ray showed status post right hip replacement. No acute bony abnormality. Extremity ultrasound showed right hip soft tissue demonstrate a fluid collection measuring 4.0 x 1.9 x 4.3 cm. This is nonspecific. Differential diagnoses should include seroma versus abscess. ASSESSMENT AND PLAN: This is a pleasant 66-year-old female who is presenting today for right hip pain that started on 07/28/2017 evening. 1. Right hip pain. Must rule out abscess versus seroma. Because we want to rule out abscess, we will consult radiology, do a CT-guided drainage of the fluid at the right hip. Antibiotic coverage will be ceftriaxone 2 gram intravenous (IV) 24 hours. We were going to start the patient on vancomycin 1000 mg IV and have pharmacy consulted to follow it, but the patient developed hives once we started the vancomycin right after. So, we have stopped it and gave the patient Benadryl, and the patient is nicely sitting there in no acute distress. As of now, we will discontinue with the ceftriaxone and await for fluid cultures to come back and appropriately de-escalate antibiotics. 2. Pain control. For the right hip pain, we have given her Percocet 5 mg/325 two tablets by mouth every 4 as needed for pain for a scale of 6-10. We have also placed morphine sulfate 4 mg IV every 30 minutes as needed for severe pain from 8-10. For moderate pain, we have also given her morphine sulfate 2 mg IV every 30 minutes as needed. 3. History of deep venous thromboses. The patient is on 5 mg daily of warfarin , and her international normalized ratio (INR) today is subtherapeutic at 0.97. As of right now, we will hold the warfarin until after the CT-guided drainage; and then, we will restart the warfarin and bring the patient back up to therapeutic level. We will place the patient on enoxaparin 40 mg subcutaneous daily for DVT prophylaxis. 4. Deep venous thrombosis prophylaxis, enoxaparin 40 mg subcutaneous daily. My faculty preceptor for this patient encounter was physically present during the encounter and was fully available. All aspects of the patient interview, examination, medical decision- making process, and medical care plan development were reviewed and approved by the faculty preceptor. The faculty preceptor is aware and concurs with the plan as stated in the body of this note and will attest to such by his/her cosignature. REJI
--- NOTE | 2017-07-30 12:26 | IPN ---
DATE OF SERVICE: 07/30/2017 Renu is seen on [address]. She is a patient of Dr. High at the [place] office. She really does not have any medical problems. She has had some mild hyperlipidemia. She does not take any prescription medications. No history of any cardiovascular or pulmonary disease. PHYSICAL EXAMINATION: Vital signs stable. Lungs: Clear. Heart: Regular rhythm. Abdomen: Soft, nontender. IMPRESSION: 1. Right hip pain. Per orthopedics CT scan. 2. Past history of deep venous thrombosis (DVT). She had DVT of her left leg in 2013. She is no longer anticoagulated. She is on Warfarin as an outpatient due to recent orthopedic procedure, dose being adjusted by orthopedics. She currently is on Lovenox for deep venous thrombosis prophylaxis. PLAN: As per orthopedics.
[2017-07-30 14:00] VITALS: BP 121/57
[2017-07-30 22:00] VITALS: BP 126/84
[2017-07-31] MEDS: PERCOCET 5MG/325MG TAB PO PRN ×4 (02:07→15:33)
[2017-07-31 06:00] VITALS: BP 140/64
[2017-07-31 07:15] LABS: BASO # 0.1 10^3/uL (0.0-0.2); BASO % 0.9 % (0.0-1.0); EOS # 0.2 10^3/uL (0.0-0.50); EOS % 3.8 % (0.0-3.0); IMMATURE GRANULOCYTE % 0.3 % (0-0); LYMPH # 1.9 10^3/uL (1.5-4.5); LYMPH % 32.1 % (24.0-44.0); MEAN CORPUSCULAR HEMOGLOBIN 30.8 pg (27.0-33.0); MEAN CORPUSCULAR HGB CONC 32.2 g/dl (32.0-36.5); MEAN CORPUSCULAR VOLUME 95.5 fl (80.0-96.0); MONO # 0.7 10^3/uL (0.0-0.8); MONO % 11.8 % (0.0-5.0); NEUTROPHILS % 51.1 % (36.0-66.0); PLATELET COUNT, AUTOMATED 318 10^3/uL (150-450); RED CELL DISTRIBUTION WIDTH 13.6 % (11.5-14.5); WHITE BLOOD COUNT 5.8 10^3/uL (4.0-10.0)
[2017-07-31 07:24] LABS: INR 1.05
[2017-07-31 07:41] LABS: ALBUMIN 2.9 GM/DL (3.2-5.2); ALBUMIN/GLOBULIN RATIO 0.71 (1.00-1.93); ALKALINE PHOSPHATASE 98 U/L (45-117); ALT/SGPT 12 U/L (12-78); ANION GAP 8 MEQ/L (8-16); AST/SGOT 11 U/L (7-37); BILIRUBIN,TOTAL 0.2 MG/DL (0.2-1.0); BLOOD UREA NITROGEN 10 MG/DL (7-18); CALCIUM LEVEL 8.4 MG/DL (8.8-10.2); CARBON DIOXIDE LEVEL 25 MEQ/L (21-32); CHLORIDE LEVEL 106 MEQ/L (98-107); CREATININE FOR GFR 0.67 MG/DL (0.55-1.02); GLOMERULAR FILTRATION RATE > 60.0 (>45); GLUCOSE, FASTING 84 MG/DL (80-110); POTASSIUM SERUM 4.4 MEQ/L (3.5-5.1); SODIUM LEVEL 139 MEQ/L (136-145)
[2017-07-31] MEDS: MORPHINE 15 MG SA TAB PO SCH ×2 (07:56→21:54)
[2017-07-31] MEDS: MOM 30ML SUSPENSION UDC PO SCH (07:58)
[2017-07-31] MEDS: ENOXAPARIN 40 MG/0.4 ML SYRINGE (J1650) SC SCH (07:58)
[2017-07-31 08:19] LABS: ERYTHROCYTE SEDIMENTATION RATE 60 mm/hr (0-30)
[2017-07-31 14:00] VITALS: BP 139/64
[2017-07-31] MEDS: CEFTRIAXONE SOD 2 GM in APPROPRIATE DILUENT 1 EA IV SCH (21:54)
[2017-07-31 22:00] VITALS: BP 126/67
[2017-08-01] MEDS: PERCOCET 5MG/325MG TAB PO PRN ×2 (02:25→09:40)
[2017-08-01 06:00] VITALS: BP 148/65
[2017-08-01 06:27] LABS: BASO % 0.5 % (0.0-1.0); EOS # 0.2 10^3/uL (0.0-0.50); EOS % 3.1 % (0.0-3.0); IMMATURE GRANULOCYTE % 0.3 % (0-0); LYMPH # 1.3 10^3/uL (1.5-4.5); LYMPH % 21.1 % (24.0-44.0); MEAN CORPUSCULAR HEMOGLOBIN 30.8 pg (27.0-33.0); MEAN CORPUSCULAR HGB CONC 32.2 g/dl (32.0-36.5); MEAN CORPUSCULAR VOLUME 95.6 fl (80.0-96.0); MONO # 0.6 10^3/uL (0.0-0.8); MONO % 9.2 % (0.0-5.0); NEUTROPHILS % 65.8 % (36.0-66.0); PLATELET COUNT, AUTOMATED 306 10^3/uL (150-450); RED CELL DISTRIBUTION WIDTH 13.5 % (11.5-14.5); WHITE BLOOD COUNT 6.1 10^3/uL (4.0-10.0)
[2017-08-01 06:37] LABS: INR 1.06
[2017-08-01 06:46] LABS: ERYTHROCYTE SEDIMENTATION RATE 53 mm/hr (0-30)
[2017-08-01 06:47] LABS: ALBUMIN 2.8 GM/DL (3.2-5.2); ALKALINE PHOSPHATASE 98 U/L (45-117); ALT/SGPT 11 U/L (12-78); ANION GAP 5 MEQ/L (8-16); AST/SGOT 12 U/L (7-37); BILIRUBIN,TOTAL 0.2 MG/DL (0.2-1.0); BLOOD UREA NITROGEN 10 MG/DL (7-18); CARBON DIOXIDE LEVEL 28 MEQ/L (21-32); CHLORIDE LEVEL 108 MEQ/L (98-107); CREATININE FOR GFR 0.58 MG/DL (0.55-1.02); GLOMERULAR FILTRATION RATE > 60.0 (>45); GLUCOSE, FASTING 86 MG/DL (80-110); POTASSIUM SERUM 4.8 MEQ/L (3.5-5.1); SODIUM LEVEL 141 MEQ/L (136-145); TOTAL PROTEIN 6.8 GM/DL (6.4-8.2)
[2017-08-01] MEDS: MOM 30ML SUSPENSION UDC PO SCH ×2 (07:50→07:54)
[2017-08-01] MEDS: MORPHINE 15 MG SA TAB PO SCH (07:51)
[2017-08-01] MEDS: ENOXAPARIN 40 MG/0.4 ML SYRINGE (J1650) SC SCH (07:53)
[2017-08-01] MEDS ORDERED: INFLUENZA VIRUS VACCINE HIGH DOSE 0.5 ML SYRINGE (90662) IM ONE (09:00)
--- NOTE | 2017-08-05 16:58 | DSES ---
DATE OF ADMISSION: 07/30/2017 DATE OF DISCHARGE: 08/01/2017 ATTENDING PHYSICIAN: Dr. Mart Wang ADMITTING DIAGNOSIS: Acute onset of right hip pain with history of right hip hemiarthroplasty. OTHER DIAGNOSES: 1. Hypertension. 2. Hyperlipidemia. 3. Psoriasis. 4. History of lower extremity cellulitis and deep venous thrombosis. DISCHARGE DIAGNOSIS: Acute onset of right hip pain with history of right hip hemiarthroplasty. HISTORY: Patient is a 67-year-old female with history of an AO screw placement for an intertrochanteric femur fracture in March of 2017. She had failure of the reduction, so she underwent a right hip hemiarthroplasty in June of 2017. She was doing very well postoperatively, but developed acute right hip pain on the evening of 07/28/2017. On 07/29/2017, she was transported to emergency room via emergency medical service (EMS) for evaluation of her symptoms. HOSPITAL COURSE: With the exception of right hip pain, patient was essentially asymptomatic. Imaging of the hip and pelvis showed no acute bony abnormality. CT scan showed no acute fracture or dislocation. She did have an ultrasound demonstrating a fluid collection measuring 4 x 1.9 x 4.3 cm. This was nonspecific, but the differential diagnoses included seroma versus abscess, so she was started on antibiotics. Orthopedics was consulted and patient was evaluated by Dr. Wang. Patient's pain was controlled while in hospital. Her antibiotics were also discontinued after cultures ruled out abscess. She was discharged on oral pain medications and will resume her preoperative medications and diet. She will followup with her primary adult care provider, Dr. Lynsey Briceño, and also with orthopedics. She does agree to contact the orthopedic office sooner if she has any increase in pain, fevers greater than 101 degrees, numbness, tingling, or radicular pain in the right lower extremity, or any other concerns. Please see medical record for additional details. MTDD
== END 2017-08-01 11:48 | disposition home health service (06) | DRG 556 ==
LOC: M ED 14:19 → EDBD 14:19 → M ED INP 07-30 02:11 → M MS5PR 07-30 02:45
PROVIDERS: ADMIT Hospitalist; ATTEND Orthopaedic Surgery
DX: M25.551 Pain in right hip (principal); I10 Essential (primary) hypertension; E78.5 Hyperlipidemia, unspecified; Z79.01 Long term (current) use of anticoagulants; Z79.899 Other long term (current) drug therapy; Z88.6 Allergy status to analgesic agent; Z88.0 Allergy status to penicillin; Z88.8 Allergy status to other drugs, medicaments and biological substances; Z86.718 Personal history of other venous thrombosis and embolism; Z87.891 Personal history of nicotine dependence; Z96.641 Presence of right artificial hip joint

== ENCOUNTER → 2017-08-03 | Outpatient (REF) | payer MEDICARE, MEDICAID ==
[~2017-08-03] MED LIST changes: +OXYC1TAB23 PO
[2017-08-03 13:43] LABS: INR 1.05
== END ==
LOC: M SHH 13:04
PROVIDERS: ATTEND Nurse Practitioner Family
DX: Z79.01 Long term (current) use of anticoagulants (principal)

== ENCOUNTER 2018-11-25 19:40 | Emergency (ER) | payer MEDICARE, MEDICAID ==
[~2018-11-25] VITALS: Ht 157.5 cm; Wt 72.7 kg
[~2018-11-25 19:40] MED LIST changes: -/ESOM40CA OR; -/WARF25TA; +ACET500T15 PO; -ACET50TAOT PO; +COUM1TAB18; -DOXY-278 PO; +DOXY-350 PO; +EFFE75CA2 PO; -EFFE75CA75 PO; +FOLI1TAB11 PO; -FOLI1TAB4 PO; +GABA-1171 PO; -GABA-279 PO; +NEXI1CAP3 OR; -PANT40TA2 PO; +PANT40TA3 PO; -SULF1TAB23 PO; +SULF1TAB93 PO
[2018-11-25] MEDS ORDERED: NS 500 ML IV ONE (20:15)
[2018-11-25] MEDS ORDERED: MORPHINE 4 MG/ML 1ML VIAL/SYRINGE (J2270) IV ONE ×2 (20:15→22:30)
[2018-11-25] MEDS ORDERED: ONDANSETRON 4MG/2ML VIAL (J2405) IV ONE (20:15)
[2018-11-25 20:16] LABS: BASO # 0.1 10^3/uL (0.0-0.2); BASO % 1.1 % (0.0-1.0); EOS # 0.4 10^3/uL (0.0-0.50); EOS % 3.9 % (0.0-3.0); HEMATOCRIT 44.2 % (36.0-47.0); HEMOGLOBIN 14.7 g/dl (12.0-15.5); LYMPH # 2.4 10^3/uL (1.5-4.5); LYMPH % 25.6 % (24.0-44.0); MEAN CORPUSCULAR HEMOGLOBIN 33.4 pg (27.0-33.0); MEAN CORPUSCULAR HGB CONC 33.3 g/dl (32.0-36.5); MEAN CORPUSCULAR VOLUME 100.5 fl (80.0-96.0); MONO # 0.9 10^3/uL (0.0-0.8); MONO % 9.7 % (0.0-5.0); NEUTROPHILS # 5.6 10^3/uL (1.8-7.7); NEUTROPHILS % 59.2 % (36.0-66.0); PLATELET COUNT, AUTOMATED 256 10^3/uL (150-450); WHITE BLOOD COUNT 9.4 10^3/uL (4.0-10.0)
[2018-11-25 20:31] LABS: INR 1.02; PROTHROMBIN TIME 13.5 SECONDS (12.1-14.4)
[2018-11-25 20:32] LABS: PARTIAL THROMBOPLASTIN TIME 30.8 SECONDS (25.4-37.6)
[2018-11-25 20:40] LABS: ALBUMIN 3.2 GM/DL (3.2-5.2); ALT/SGPT 16 U/L (12-78); BILIRUBIN,DIRECT < 0.1 MG/DL (0.0-0.2); BILIRUBIN,TOTAL 0.2 MG/DL (0.2-1.0); BLOOD UREA NITROGEN 7 MG/DL (7-18); CALCIUM LEVEL 8.5 MG/DL (8.8-10.2); CARBON DIOXIDE LEVEL 29 MEQ/L (21-32); CHLORIDE LEVEL 98 MEQ/L (98-107); CREATININE FOR GFR 0.82 MG/DL (0.55-1.30); GLOMERULAR FILTRATION RATE > 60.0 (>45); GLUCOSE, FASTING 111 MG/DL (70-100); LIPASE 279 U/L (73-393); POTASSIUM SERUM 3.2 MEQ/L (3.5-5.1); SODIUM LEVEL 138 MEQ/L (136-145); TOTAL PROTEIN 6.8 GM/DL (6.4-8.2)
[2018-11-25] MEDS ORDERED: POTASSIUM CHLORIDE 10 MEQ SR TABLET PO ONE (21:30)
--- NOTE | 2018-11-25 22:08 | REPVR ---
EXAM: US Abdomen Limited, Right Upper Quadrant EXAM DATE/TIME: 11/25/2018 8:48 PM CLINICAL HISTORY: 68 years old, female; Pain; Abdominal pain; Epigastric; Additional info: Biliary colic TECHNIQUE: Imaging protocol: Real-time ultrasound of the abdomen with image documentation. Examination was focused on the right upper quadrant. COMPARISON: No relevant prior studies available. FINDINGS: Liver: Marked increased echogenicity through the liver consistent with severe fatty infiltration of the liver. Gallbladder: Negative Chaudhary's sign. There are several small gravel like gallstones within the dependent portion of gallbladder mixed with sludge. The gallbladder wall measures less than 2 mm. Common bile duct: The common bile duct is normal in size measuring 4 mm. Pancreas: The pancreas is not visualized obscured by bowel gas. A CT scan would be helpful to completely evaluate the pancreas. Right kidney: The right kidney measures 11.3 CM in length and there is no evidence of hydronephrosis. There is large cyst of the right kidney which measures 3.5 CM. Inferior vena cava: Normal-appearing inferior vena cava. Other findings: This was a limited ultrasound of the right quadrant only. IMPRESSION: 1. Severe fatty infiltration of the liver. 2. There are small gravel like gallstones in the dependent portion of the gallbladder with a small amount of sludge. 3. Normal-sized common bile duct. 4. Suggest a CT scan to completely evaluate the pancreas and common duct. Electronically signed by: Derek Vargas On 11/25/2018 22:08:09 PM
[2018-11-25] MEDS ORDERED: NORCO 5/325MG TABLET (BULK FOR ED) PO ONE (23:00)
[2018-11-26] MEDS ORDERED: MORPHINE 10 MG/ML 1ML VIAL (J2270) IV ONE (02:00)
[2018-11-26 03:30] VITALS: BP 144/73
--- NOTE | 2018-11-26 10:59 | ED PDOC ---
Post-Departure Follow-Up dr forrest faxed formal report of [facility] for fu Tesha Torrez MD Nov 26, 2018 10:59
[2018-12-13] MEDS ORDERED: HYDR-3713 PO (14:32)
[2018-12-13] MEDS ORDERED: LEVO500T3 PO (14:32)
== END 2018-11-26 04:11 | disposition home or self-care (01) ==
LOC: EDSEX 19:40 → EDBD 19:40 → M ED 19:40
DX: K80.70 Calculus of gallbladder and bile duct without cholecystitis without obstruction (principal); R11.0 Nausea; J44.9 Chronic obstructive pulmonary disease, unspecified; Z86.718 Personal history of other venous thrombosis and embolism; Z86.711 Personal history of pulmonary embolism; F17.210 Nicotine dependence, cigarettes, uncomplicated; Z88.0 Allergy status to penicillin; Z88.1 Allergy status to other antibiotic agents; Z88.8 Allergy status to other drugs, medicaments and biological substances; Z79.899 Other long term (current) drug therapy; Z79.01 Long term (current) use of anticoagulants
CPT/HCPCS: 76705; 80048; 80076; 83690; 85025; 85610; 85730; 93041; 96374; 96375; 96376; 99285; J2270; J2405

== ENCOUNTER 2018-12-20 08:09 | Day surgery (SDC) | payer MEDICARE, MEDICAID ==
[~2018-12-20] VITALS: Ht 157.5 cm; Wt 67.1 kg
[~2018-12-20 08:09] MED LIST changes: +HYDR-3713 PO; +LEVO500T3 PO; +LR 1,000 ML IV ONE; +LevoFLOXacin IV 500 MG in APPROPRIATE DILUENT 1 EA IV ONE
[2018-12-20] MEDS ORDERED: IBUP200C25 PO (08:48)
[2018-12-20] MEDS ORDERED: PROPOFOL 200 MG/20 ML VIAL As Ordered ONE (09:07)
[2018-12-20] MEDS ORDERED: ACETAMINOPHEN 1000MG 100ML IV BTL (OFIRMEV) (J0131 PER 10MG) As Ordered ONE (09:07)
[2018-12-20] MEDS ORDERED: KETOROLAC 60 MG/2 ML VIAL (J1885) As Ordered ONE (09:07)
[2018-12-20] MEDS ORDERED: LIDOCAINE 2% INJ 100 MG/5 ML SDV (FOR ANES.) As Ordered ONE (09:07)
[2018-12-20] MEDS ORDERED: ROCURONIUM BROMIDE 50 MG/5 ML VIAL As Ordered ONE (09:07)
[2018-12-20] MEDS ORDERED: ONDANSETRON 4MG/2ML VIAL (J2405) As Ordered ONE (09:07)
[2018-12-20] MEDS ORDERED: dexameTHASONE 4 MG/ML 1ML VIAL (J1100) As Ordered ONE (09:07)
[2018-12-20] MEDS ORDERED: SUGAMMADEX SODIUM 500 MG/5 ML VIAL (BRIDION) As Ordered ONE (09:09)
[2018-12-20] MEDS ORDERED: HYDROmorphone HCL 2 MG/ML 1ML VIAL (J1170) As Ordered ONE (09:10)
[2018-12-20] MEDS ORDERED: MIDAZOLAM INJ 2 MG/2 ML VIAL (J2250) As Ordered ONE (09:10)
[2018-12-20] MEDS ORDERED: fentaNYL 100 MCG/2 ML INJECTION (J3010) As Ordered ONE (09:10)
[2018-12-20] MEDS ORDERED: LIDOCAINE 1% SDV INJ 30 ML VIAL As Ordered ONE (10:37)
[2018-12-20] MEDS ORDERED: BUPIVACAINE HCL 0.25% 30 ML VIAL As Ordered ONE (10:38)
[2018-12-20] MEDS ORDERED: PHENYLephrine HCL 500 MCG/5 ML (100MCG/ML) SYRINGE (J2370) As Ordered ONE (12:06)
[2018-12-20] MEDS ORDERED: ePHEDrine SULFATE 25 MG/5 ML(5MG/ML) SYRINGE As Ordered ONE (12:06)
[2018-12-20] MEDS ORDERED: PERCOCET 5MG/325MG TAB As Ordered ONE (13:03)
[2018-12-20] MEDS: PERCOCET 5MG/325MG TAB PO PRN ×2 (13:05→13:35)
[2018-12-20] MEDS ORDERED: LR 1,000 ML IV SCH (13:15)
[2018-12-20] MEDS ORDERED: ONDANSETRON 4MG/2ML VIAL (J2405) IV PRN ×2 (13:15)
[2018-12-20] MEDS ORDERED: fentaNYL 100 MCG/2 ML INJECTION (J3010) IV PRN (13:15)
[2018-12-20] MEDS ORDERED: HYDROMORPHONE HCL 0.5 MG/ 0.5 ML SYRINGE (J1170 PER 1) IV PRN (13:15)
[2018-12-20] MEDS ORDERED: NORCO, ANEXSIA 5/325MG TABLET (HYDROcodone/ACETAMINOPHEN) PO PRN ×2 (13:15)
[2018-12-20] MEDS ORDERED: KETOROLAC 30 MG/ML VIAL (J1885) IV PRN (13:15)
[2018-12-20] MEDS ORDERED: METOCLOPRAMIDE INJ 10MG/2ML VIAL (J2765) IV PRN (13:15)
[2018-12-20 15:27] VITALS: BP 127/81
== END 2018-12-20 15:28 | disposition home or self-care (01) ==
LOC: M SDC 08:09
PROVIDERS: ATTEND Surgery
DX: K80.18 Calculus of gallbladder with other cholecystitis without obstruction (principal); F32.9 Major depressive disorder, single episode, unspecified; F41.9 Anxiety disorder, unspecified; Z79.899 Other long term (current) drug therapy; F17.210 Nicotine dependence, cigarettes, uncomplicated; Z88.0 Allergy status to penicillin; Z88.8 Allergy status to other drugs, medicaments and biological substances; Z86.718 Personal history of other venous thrombosis and embolism
CPT/HCPCS: 47562; 88304; J0131; J1100; J1170; J1885; J1956; J2250; J2370; J2405; J3010

== ENCOUNTER → 2019-02-09 | Outpatient (REF) | payer MEDICARE, OTHER ==
[~2019-02-09] MED LIST changes: +IBUP200C25 PO; -LR 1,000 ML IV ONE; -LevoFLOXacin IV 500 MG in APPROPRIATE DILUENT 1 EA IV ONE
[2019-02-09 20:01] LABS: ALBUMIN 3.7 GM/DL (3.2-5.2); ALT/SGPT 18 U/L (12-78); BILIRUBIN,TOTAL 0.3 MG/DL (0.2-1.0); BLOOD UREA NITROGEN 5 MG/DL (7-18); CALCIUM LEVEL 9.2 MG/DL (8.8-10.2); CARBON DIOXIDE LEVEL 27 MEQ/L (21-32); CHLORIDE LEVEL 97 MEQ/L (98-107); CREATININE FOR GFR 0.68 MG/DL (0.55-1.30); GLOMERULAR FILTRATION RATE > 60.0 (>45); GLUCOSE, FASTING 93 MG/DL (70-100); POTASSIUM SERUM 4.9 MEQ/L (3.5-5.1); SODIUM LEVEL 133 MEQ/L (136-145); TOTAL PROTEIN 7.7 GM/DL (6.4-8.2)
== END ==
LOC: M SFHCADAM 14:29
PROVIDERS: ATTEND Family Medicine
DX: Z01.818 Encounter for other preprocedural examination (principal); F32.9 Major depressive disorder, single episode, unspecified
CPT/HCPCS: 80053; 84439; 84443; G0463

== ENCOUNTER → 2019-06-10 | Outpatient (REF) | payer MEDICARE, MEDICAID ==
[~2019-06-10] MED LIST changes: +PANT20TA2 PO
[2019-06-10 19:04] LABS: ALBUMIN 3.6 GM/DL (3.2-5.2); ALT/SGPT 15 U/L (12-78); AMYLASE 119 U/L (25-115); BILIRUBIN,TOTAL 0.4 MG/DL (0.2-1.0); BLOOD UREA NITROGEN 9 MG/DL (7-18); CALCIUM LEVEL 9.1 MG/DL (8.8-10.2); CARBON DIOXIDE LEVEL 30 MEQ/L (21-32); CHLORIDE LEVEL 99 MEQ/L (98-107); CREATININE FOR GFR 0.88 MG/DL (0.55-1.30); GLOMERULAR FILTRATION RATE > 60.0 (>45); GLUCOSE, FASTING 89 MG/DL (70-100); LIPASE 291 U/L (73-393); POTASSIUM SERUM 4.1 MEQ/L (3.5-5.1); SODIUM LEVEL 137 MEQ/L (136-145); TOTAL PROTEIN 7.2 GM/DL (6.4-8.2)
[2019-06-10 19:07] LABS: BASO # 0.1 10^3/uL (0.0-0.2); EOS # 0.3 10^3/uL (0.0-0.5); EOS % 2.8 % (0.0-3.0); HEMATOCRIT 44.2 % (36.0-47.0); LYMPH % 18.8 % (24.0-44.0); MEAN CORPUSCULAR HEMOGLOBIN 32.1 pg (27.0-33.0); MEAN CORPUSCULAR HGB CONC 33.9 g/dl (32.0-36.5); MEAN CORPUSCULAR VOLUME 94.6 fl (80.0-96.0); MONO % 8.9 % (0.0-5.0); NEUTROPHILS # 7.3 10^3/uL (1.5-8.5); NEUTROPHILS % 68.2 % (36.0-66.0); PLATELET COUNT, AUTOMATED 298 10^3/uL (150-450); RED BLOOD COUNT 4.67 10^6/uL (4.00-5.40); WHITE BLOOD COUNT 10.7 10^3/uL (4.0-10.0)
== END ==
LOC: M SFHCADAM 16:51
PROVIDERS: ATTEND Family Medicine
DX: R10.13 Epigastric pain (principal); Z23 Encounter for immunization
CPT/HCPCS: 80053; 82150; 83690; 85025; 90682; G0008; G0463

== ENCOUNTER 2019-06-26 13:24 | Emergency (ER) | payer MEDICARE, MEDICAID ==
[~2019-06-26] VITALS: Ht 157.5 cm; Wt 61.4 kg
[~2019-06-26 13:24] MED LIST changes: -PANT20TA2 PO
[2019-06-26] MEDS ORDERED: PANTOPRAZOLE 40MG INJ (PROTONIX) (C9113) IV ONE (13:30)
[2019-06-26] MEDS ORDERED: NS 1,000 ML IV ONE (13:30)
[2019-06-26] MEDS ORDERED: KETOROLAC 30 MG/ML VIAL (J1885) IV ONE (13:30)
[2019-06-26] MEDS ORDERED: ONDANSETRON 4MG/2ML VIAL (J2405) IV ONE (13:30)
[2019-06-26] MEDS ORDERED: PANT20TA2 PO (13:38)
[2019-06-26 14:01] LABS: BASO # 0.1 10^3/uL (0.0-0.2); BASO % 0.8 % (0.0-1.0); EOS # 0.1 10^3/uL (0.0-0.5); EOS % 0.8 % (0.0-3.0); HEMOGLOBIN 15.4 g/dl (12.0-15.5); LYMPH # 1.8 10^3/uL (1.5-5.0); LYMPH % 21.6 % (24.0-44.0); MEAN CORPUSCULAR HEMOGLOBIN 32.2 pg (27.0-33.0); MEAN CORPUSCULAR HGB CONC 32.8 g/dl (32.0-36.5); MEAN CORPUSCULAR VOLUME 98.1 fl (80.0-96.0); MONO # 0.8 10^3/uL (0.0-0.8); MONO % 9.5 % (0.0-5.0); NEUTROPHILS # 5.7 10^3/uL (1.5-8.5); NEUTROPHILS % 66.8 % (36.0-66.0); PLATELET COUNT, AUTOMATED 274 10^3/uL (150-450); RED BLOOD COUNT 4.79 10^6/uL (4.00-5.40); WHITE BLOOD COUNT 8.5 10^3/uL (4.0-10.0)
--- NOTE | 2019-06-26 14:12 | REP ---
CT of the abdomen and pelvis without IV contrast: The studies performed for abdominal pain. There are no comparisons. There is discoid atelectasis in the right lower lobe and the visualized lung lanier. The unenhanced hepatic parenchyma is unremarkable. The gallbladder is not identified and is either collapsed or surgically absent. The pancreas and spleen are unremarkable. The adrenals are unremarkable. There are tiny renal calculi bilaterally, likely atheromatous calcification. There is no hydronephrosis. There is a 3.4 cm right renal cortical cyst and a 1.1 cm left renal cortical cyst. There is no perinephric stranding. The abdominal aorta is unremarkable except for calcified atheroma. There is no periaortic adenopathy or mass. There is no bowel distension or obstruction. There is opaque material throughout the colon. Pelvis: The appendix is unremarkable. There is significant beam-hardening artifact obscuring visualization of a right hip arthroplasty. There is the images with beam-hardening artifact reduction software. There is no ascites. The bladder is grossly unremarkable. There is a left iliac/femoral arterial Endo graft. The pelvic bowel loops are grossly unremarkable. There is no pelvic ascites or adenopathy. Impression: There is no bowel distension or obstruction. There is no adenopathy, ascites or mass. There is opaque material throughout the colon. Right hip arthroplasty. Left iliac/femoral aortic Endo graft. There is an internal fixation screw tract in the left femoral head/neck. There is demineralization. There are age indeterminate compression deformities of the T11, T12, L1, L2-L3 vertebral bodies. There is degenerative disc disease at L4-5. There is grade 1 listhesis of L4. No spondylolysis. Electronically Signed by Taj Byrd MD 06/26/2019 02:04 P
[2019-06-26 14:28] LABS: ALBUMIN 3.7 GM/DL (3.2-5.2); ALT/SGPT 18 U/L (12-78); AMYLASE 83 U/L (25-115); BILIRUBIN,DIRECT < 0.1 MG/DL (0.0-0.2); BILIRUBIN,TOTAL 0.6 MG/DL (0.2-1.0); BLOOD UREA NITROGEN 8 MG/DL (7-18); CALCIUM LEVEL 9.2 MG/DL (8.8-10.2); CARBON DIOXIDE LEVEL 28 MEQ/L (21-32); CHLORIDE LEVEL 103 MEQ/L (98-107); CREATININE FOR GFR 0.64 MG/DL (0.55-1.30); GLOMERULAR FILTRATION RATE > 60.0 (>45); GLUCOSE, FASTING 105 MG/DL (70-100); LIPASE 172 U/L (73-393); POTASSIUM SERUM 4.2 MEQ/L (3.5-5.1); SODIUM LEVEL 137 MEQ/L (136-145); TOTAL PROTEIN 7.8 GM/DL (6.4-8.2)
[2019-06-26] MEDS ORDERED: LABETALOL HCL 100 MG/20 ML VIAL IV STA ×2 (14:49→15:53)
[2019-06-26] MEDS ORDERED: FLEET OIL RETENTION ENEMA PR PRN (15:00)
[2019-06-26] MEDS ORDERED: MAGNESIUM CITRATE 300 ML BTL PO ONE (15:00)
[2019-06-26 15:57] VITALS: BP 204/139
[2019-06-26 16:45] VITALS: BP 171/79
--- NOTE | 2019-06-27 06:59 | ED PDOC ---
Post-Departure Follow-Up radiology report faxed to Mya Buitrago MD Jun 27, 2019 06:59
== END 2019-06-26 17:00 | disposition home or self-care (01) ==
LOC: M ED 13:24 → EDBD 13:24 → M ED 17:00
DX: K59.00 Constipation, unspecified (principal); R10.9 Unspecified abdominal pain; F17.200 Nicotine dependence, unspecified, uncomplicated; Z96.641 Presence of right artificial hip joint; M51.26 Other intervertebral disc displacement, lumbar region; M51.84 Other intervertebral disc disorders, thoracic region; M51.86 Other intervertebral disc disorders, lumbar region; Z79.899 Other long term (current) drug therapy; Z88.0 Allergy status to penicillin; Z88.8 Allergy status to other drugs, medicaments and biological substances; Z88.1 Allergy status to other antibiotic agents
CPT/HCPCS: 74176; 80048; 80076; 82150; 83690; 85025; 93041; 96361; 96374; 96375; 96376; 99285; C9113; J1885; J2405

== ENCOUNTER 2019-07-19 12:30 | Inpatient (IN) | payer MEDICARE, MEDICAID ==
[~2019-07-19] VITALS: Ht 157.5 cm; Wt 61.2 kg
[~2019-07-19 12:30] MED LIST changes: +PANT20TA2 PO
[2019-07-19] MEDS ORDERED: MORPHINE 4 MG/ML 1ML VIAL/SYRINGE (J2270) IV ONE ×2 (13:45→19:00)
[2019-07-19] MEDS ORDERED: ONDANSETRON 4MG/2ML VIAL (J2405) IV ONE (13:45)
[2019-07-19 14:32] LABS: BASO # 0.1 10^3/uL (0.0-0.2); BASO % 0.6 % (0.0-1.0); EOS # 0.1 10^3/uL (0.0-0.5); EOS % 1.1 % (0.0-3.0); HEMATOCRIT 45.8 % (36.0-47.0); LYMPH # 1.9 10^3/uL (1.5-5.0); LYMPH % 19.7 % (24.0-44.0); MEAN CORPUSCULAR HEMOGLOBIN 32.2 pg (27.0-33.0); MEAN CORPUSCULAR HGB CONC 32.8 g/dl (32.0-36.5); MEAN CORPUSCULAR VOLUME 98.3 fl (80.0-96.0); MONO # 0.8 10^3/uL (0.0-0.8); MONO % 8.9 % (0.0-5.0); NEUTROPHILS # 6.5 10^3/uL (1.5-8.5); NEUTROPHILS % 69.4 % (36.0-66.0); PLATELET COUNT, AUTOMATED 287 10^3/uL (150-450); RED BLOOD COUNT 4.66 10^6/uL (4.00-5.40); WHITE BLOOD COUNT 9.4 10^3/uL (4.0-10.0)
[2019-07-19 14:59] LABS: ALBUMIN 3.7 GM/DL (3.2-5.2); ALT/SGPT 30 U/L (12-78); BILIRUBIN,DIRECT 0.2 MG/DL (0.0-0.2); BILIRUBIN,TOTAL 0.5 MG/DL (0.2-1.0); BLOOD UREA NITROGEN 6 MG/DL (7-18); CALCIUM LEVEL 9.2 MG/DL (8.8-10.2); CARBON DIOXIDE LEVEL 28 MEQ/L (21-32); CHLORIDE LEVEL 103 MEQ/L (98-107); CK-MB VALUE MASS < 1.0 NG/ML (<3.6); CPK CREATINE PHOSPHOKINASE 50 U/L (26-192); CREATININE FOR GFR 0.64 MG/DL (0.55-1.30); GLOMERULAR FILTRATION RATE > 60.0 (>45); GLUCOSE, FASTING 90 MG/DL (70-100); LIPASE 223 U/L (73-393); POTASSIUM SERUM 4.2 MEQ/L (3.5-5.1); SODIUM LEVEL 137 MEQ/L (136-145); TOTAL PROTEIN 7.5 GM/DL (6.4-8.2); TROPONIN I < 0.02 NG/ML (< 0.10)
[2019-07-19] MEDS: GASTROGRAFIN SOLUTION 30ML PO SCH ×2 (16:07→16:39)
[2019-07-19] MEDS ORDERED: ISOVUE-370 76% 100ML VIAL (Q9967) As Ordered ONE (17:01)
--- NOTE | 2019-07-19 17:18 | ECGEPIP ---
[facility] - ED Test Date: 2019-07-19 Pat Name: JUSTINO WATT Department: Room: - Gender: Female [employer]: johnson : 1950 Requested By: JONA Alex Order Number: [id number] Reading MD: Mya Morrell Measurements Intervals [place] Rate: 72 P: 65 MT: 156 QRS: 54 QRSD: 85 T: 63 QT: 358 QTc: 394 Interpretive Statements SINUS RHYTHM DECREASED RATE 03/19/17 Electronically Signed on 07-19-2019 17:18:29 EST by Mya Morrell
--- NOTE | 2019-07-19 18:25 | REPVR ---
PROCEDURE INFORMATION: Exam: CT Abdomen And Pelvis With Contrast Exam date and time: 07/19/2019 3:20 PM Age: 68 years old Clinical history: Abdominal pain; Generalized; Additional info: Generalized abd pain TECHNIQUE: Imaging protocol: Computed tomography of the abdomen and pelvis with intravenous contrast. Radiation optimization: All CT scans at this facility use at least one of these dose optimization techniques: automated exposure control; mA and/or kV adjustment per patient size (includes targeted exams where dose is matched to clinical indication); or iterative reconstruction. Contrast material: ISOVUE 370; Contrast volume: 100 ml; Contrast route: IV; Other contrast: Route: Oral, Material: gastrografin, Volume: 10ml/290ml water; COMPARISON: CT ABD PELVIS W/O CONTRAST 06/26/2019 1:36 PM FINDINGS: Lungs: Linear atelectasis or probable scarring at the right lung base. Liver: There are no focal liver lesions present. There is a diffuse decrease in hepatic parenchymal density, consistent with fatty infiltration. Gallbladder and bile ducts: The gallbladder is not visualized, presumed surgically resected. There is extrahepatic biliary ductal prominence. The common duct measures 13 mm. Pancreas: The pancreas is normal. Spleen: The spleen is normal. Adrenals: Normal. No mass. Kidneys and ureters: There is no evidence of hydronephrosis. Bilateral nephrolithiasis versus early excretion of IV contrast into the renal collecting systems. Right cysts measure up to 3.7 cm on the right. Stomach and bowel: The stomach is normal. There is apparent mural thickening involving the proximal small bowel. Consider enteritis. Bowel ischemia would be an additional consideration, given the atherosclerotic vascular disease. Appendix: A normal appendix is identified. Intraperitoneal space: Trace free fluid in the dependent pelvis, nonspecific. No free air. . Vasculature: Atherosclerotic vascular disease is noted. No aneurysm identified. There is moderate stenosis at the origin of the celiac trunk. There is segmental occlusion of the proximal superior mesenteric artery, with reconstitution. The inferior mesenteric artery appears patent. Lymph nodes: Unremarkable. No enlarged lymph nodes. Bladder: The bladder is normal. Reproductive: Hysterectomy. Bones/joints: Right hip arthroplasty, with significant beam hardening artifact diminishing images of the pelvis. There are compression deformities at T11, T12, L1, L2, L3, and L4, all of which are unchanged compared to 06/26/2019. There is severe lumbar facet arthropathy. There is anterolisthesis at L4-5. IMPRESSION: 1. Mural thickening involving the proximal small bowel, may reflect enteritis or possibly ischemic bowel. 2. Severe atherosclerotic vascular disease. Segmental occlusion of the proximal SMA, with reconstitution. 3. Bilateral nephrolithiasis versus early excretion of IV contrast into the collecting systems. 4. Hepatic steatosis. 5. Trace free fluid in the dependent pelvis, nonspecific. Electronically signed by: Leticia Herman On 07/19/2019 18:24:54 PM
[2019-07-19] MEDS ORDERED: ACETAMINOPHEN 650MG ER TAB (TYLENOL ARTHRITIS) PO PRN (20:30)
--- NOTE | 2019-07-19 20:35 | HPEPDOC ---
[facility] Medical History & Physical Date of Admission Jul 19, 2019 Date of Service: Jul 19, 2019 Primary Care Physician: FREDIS HAILE DO Attending Physician: Torin Fournier MD History and Physical TIME OF SERVICE: 8:30 PM CHIEF COMPLAINT: Abdominal pain HISTORY OF PRESENT ILLNESS: This is a 68-year-old female who presents with complaints of constant 10/ 10 in severity, nonradiating epigastric abdominal pain since August. In December she had a cholecystectomy, but the pain has persisted. She came in today because the pain was very severe. It improved to 7 / 10 after receiving morphine. She denies having nausea, vomiting or diarrhea. Her last bowel movement was the day before yesterday, which is her typical pattern. She has lost weight as a result of the chronic pain. She denies having an EGD in the past. She has been referred to Dr. Taylor, but her appointment is August 2019. REVIEW OF SYSTEMS: 12 point review of systems negative except as listed in HPI PAST MEDICAL/ SURGICAL HISTORY: Chronic CAD / Dyslipidemia Psoriasis PVD status post stents and aortofemoral bypass graft . Chronic hypertension Osteoporosis with history of of T11-12, L1-2, 3 and 4, compression fractures Remote history of DVT was previously on Coumadin Hepatic steatosis. History of left ORIF History of right hip arthroplasty Status post hysterectomy. Status post 2 SOCIAL HISTORY: Former smoker. Does not drink alcohol FAMILY HISTORY: Prostate cancer Coronary artery disease she denies family history of GI malignancy ALLERGIES: Please see below. HOME MEDICATIONS: Please see below. PHYSICAL EXAMINATION: VITAL SIGNS: Please see below. GENERAL APPEARANCE: well-nourished, well-developed, not in apparent distress HEENT: no cephalic, atraumatic. Mucous membranes moist and pink CARDIOVASCULAR: Regular rate and rhythm. No murmurs, rubs or gallops LUNGS: There is equal air entry bilaterally. She's not using accessory muscles. She is not coughing. The lungs are clear to auscultation bilaterally on room air ABDOMEN: There are no masses or lesions. The abdomen is soft but tender even with light palpation MUSCULOSKELETAL: Range of motion is intact in all 4 extremities INTEGUMENT: There is no Childress sign Johnathon Sign or Mims's sign NEUROLOGICAL:Cranial nerves II-12 are grossly intact. Speech is not dysarthric PSYCHIATRIC: Alert and oriented to person, place and time, able to understand and follow commands LABORATORY DATA: See below. IMAGING: CT of the abdomen " IMPRESSION: 1. Mural thickening involving the proximal small bowel, may reflect enteritis or possibly ischemic bowel. 2. Severe atherosclerotic vascular disease. Segmental occlusion of the proximal SMA, with reconstitution. 3. Bilateral nephrolithiasis versus early excretion of IV contrast into the collecting systems. 4. Hepatic steatosis. 5. Trace free fluid in the dependent pelvis, nonspecific. " MICROBIOLOGY: Please see below. ASSESSMENT: Ms. Mendes is a 68-year-old with a past medical history of psoriasis, PVD, chronic hypertension, osteoporosis, and chronic abdominal pain who will be admitted for evaluation of chronic abdominal pain was causes to be determined. PLAN: 1. Subacute Abdominal pain. Possibly due to chronic mesenteric ischemia ? (she has lost weight but reports the pain is not related to food intake) vs enteritis vs other cause to be determined She does not have SIRS criteria & her lactic acid is within normal limits CT report reviewed The only alarm symptom is weight loss. She does not have anemia or palpable abdominal masses. Plan: Admit to medical floor/pain control, Percocet (according to the patient, this helps)/ the daytime team may consider GI consult the morning 2. Uncontrolled hypertension. Plan: Start amlodipine 3. Chronic CAD. / Dyslipidemia / PVD status post stents and aortofemoral bypass graft Plan: No home meds listed in EMR DVT prophylaxis with SCDs. Disposition pending clinical course Vital Signs Vital Signs Date Time Temp Pulse Resp B/P (MAP) Pulse Ox O2 Delivery O2 Flow Rate FiO2 07/19/19 19:18 18 07/19/19 19:09 99.4 95 95 Room Air 07/19/19 18:53 183/84 (117) Laboratory Data Labs 24H Laboratory Tests 2 07/19/19 13:34: Immature Granulocyte % (Auto) 0.3, Neutrophils (%) (Auto) 69.4H, Lymphocytes (%) (Auto) 19.7L, Monocytes (%) (Auto) 8.9H, Eosinophils (%) (Auto) 1.1, Basophils (%) (Auto) 0.6, Neutrophils # (Auto) 6.5, Lymphocytes # (Auto) 1.9, Monocytes # (Auto) 0.8, Eosinophils # (Auto) 0.1, Basophils # (Auto) 0.1, Nucleated Red Blood Cells % (auto) 0.0, Anion Gap 6L, Glomerular Filtration Rate > 60.0, Calcium Level 9.2, Total Bilirubin 0.5, Direct Bilirubin 0.2, Aspartate Amino Transf (AST/SGOT) 19, Alanine Aminotransferase (ALT/SGPT) 30, Alkaline Phosphatase 123H, Total Creatine Kinase 50, Creatine Kinase MB < 1.0, Creatine Kinase MB Relative Index 2.00, Troponin I < 0.02, Total Protein 7.5, Albumin 3.7, Albumin/Globulin Ratio 0.97L, Lipase 223 07/19/19 18:52: Lactic Acid Level 2.0 CBC/BMP Laboratory Tests 07/19/19 13:34 Home Medications No Active Prescriptions or Reported Meds Allergies Coded Allergies: Penicillins (Verified Allergy, Unknown, hives, 12/13/18) aspirin (Verified Allergy, Unknown, rash, 12/13/18) iron (Verified Allergy, Unknown, flu symptoms, 12/13/18) vancomycin (Verified Allergy, Unknown, rash itching, 12/13/18) A-FIB/CHADSVASC A-FIB History Current/History of A-Fib/PAF?: No Current PO Anticoag Therapy: No SAURABH KING MD Jul 19, 2019 20:35
[2019-07-19] MEDS ORDERED: PERCOCET 5MG/325MG TAB PO PRN (20:45)
[2019-07-19 22:30] VITALS: BP 188/91
[2019-07-20 01:50] VITALS: BP 176/90
[2019-07-20] MEDS ORDERED: ACETAMINOPHEN TAB 650MG DOSE (2X325MG) PO PRN (02:00)
[2019-07-20] MEDS: PERCOCET 5MG/325MG TAB PO PRN ×5 (04:47→22:21)
[2019-07-20 06:00] VITALS: BP 178/89
[2019-07-20 06:55] LABS: HEMATOCRIT 45.3 % (36.0-47.0); HEMOGLOBIN 14.6 g/dl (12.0-15.5); MEAN CORPUSCULAR HEMOGLOBIN 31.7 pg (27.0-33.0); MEAN CORPUSCULAR HGB CONC 32.2 g/dl (32.0-36.5); MEAN CORPUSCULAR VOLUME 98.5 fl (80.0-96.0); PLATELET COUNT, AUTOMATED 299 10^3/uL (150-450); WHITE BLOOD COUNT 8.2 10^3/uL (4.0-10.0)
[2019-07-20 07:12] LABS: BLOOD UREA NITROGEN 9 MG/DL (7-18); CARBON DIOXIDE LEVEL 28 MEQ/L (21-32); CHLORIDE LEVEL 101 MEQ/L (98-107); CREATININE FOR GFR 0.92 MG/DL (0.55-1.30); GLOMERULAR FILTRATION RATE > 60.0 (>45); GLUCOSE, FASTING 104 MG/DL (70-100); POTASSIUM SERUM 4.2 MEQ/L (3.5-5.1); SODIUM LEVEL 135 MEQ/L (136-145)
[2019-07-20] MEDS ORDERED: ENOXAPARIN 40 MG/0.4 ML SYRINGE (J1650) SC SCH (09:00)
[2019-07-20] MEDS: amLODIPine 5 MG TAB PO SCH (09:31)
[2019-07-20 14:00] VITALS: BP 114/87
[2019-07-20] MEDS: KCL 20MEQ in NS 1000ML 1,000 ML IV SCH ×2 (16:00→23:42)
--- NOTE | 2019-07-20 16:10 | IPN ---
DATE: 07/20/2019 Renu was seen on [facility]. She was still having abdominal pain. Her exam showed minimal tenderness in the epigastric region. I reviewed her CT scan, SMA stenosis suggested with heavy atherosclerosis. I discussed the case with Dr. Sweeney for interventional radiology. After I reviewed the CT felt that she would benefit from an angiogram and possible stenting so a consult was placed and we will proceed from there.
[2019-07-20] MEDS ORDERED: MAALOX 30 ML SUSP *UDC PO PRN (18:45)
[2019-07-20] MEDS: PANTOPRAZOLE 40MG INJ (PROTONIX) (C9113) IV SCH (19:00)
[2019-07-20 22:00] VITALS: BP 116/85
[2019-07-21] MEDS: PERCOCET 5MG/325MG TAB PO PRN ×4 (02:29→23:11)
[2019-07-21 06:00] VITALS: BP 128/79
[2019-07-21 06:03] LABS: BASO # 0.1 10^3/uL (0.0-0.2); BASO % 0.7 % (0.0-1.0); EOS # 0.2 10^3/uL (0.0-0.5); EOS % 2.4 % (0.0-3.0); HEMATOCRIT 39.5 % (36.0-47.0); HEMOGLOBIN 12.9 g/dl (12.0-15.5); LYMPH # 1.8 10^3/uL (1.5-5.0); MEAN CORPUSCULAR HEMOGLOBIN 32.4 pg (27.0-33.0); MEAN CORPUSCULAR HGB CONC 32.7 g/dl (32.0-36.5); MEAN CORPUSCULAR VOLUME 99.2 fl (80.0-96.0); MONO # 0.8 10^3/uL (0.0-0.8); MONO % 11.6 % (0.0-5.0); NEUTROPHILS # 4.2 10^3/uL (1.5-8.5); PLATELET COUNT, AUTOMATED 238 10^3/uL (150-450); RED BLOOD COUNT 3.98 10^6/uL (4.00-5.40); WHITE BLOOD COUNT 7.1 10^3/uL (4.0-10.0)
[2019-07-21 06:35] LABS: ALBUMIN 2.9 GM/DL (3.2-5.2); ALT/SGPT 35 U/L (12-78); BILIRUBIN,TOTAL 0.6 MG/DL (0.2-1.0); BLOOD UREA NITROGEN 5 MG/DL (7-18); CALCIUM LEVEL 8.4 MG/DL (8.8-10.2); CARBON DIOXIDE LEVEL 27 MEQ/L (21-32); CHLORIDE LEVEL 106 MEQ/L (98-107); CREATININE FOR GFR 0.55 MG/DL (0.55-1.30); GLOMERULAR FILTRATION RATE > 60.0 (>45); GLUCOSE, FASTING 90 MG/DL (70-100); POTASSIUM SERUM 4.4 MEQ/L (3.5-5.1); SODIUM LEVEL 138 MEQ/L (136-145); TOTAL PROTEIN 6.3 GM/DL (6.4-8.2)
[2019-07-21] MEDS: KCL 20MEQ in NS 1000ML 1,000 ML IV SCH ×2 (07:57→18:08)
[2019-07-21] MEDS ORDERED: E-Z-HD 98% w/w 340GM SUSP BTL As Ordered ONE (08:29)
[2019-07-21] MEDS ORDERED: E-Z-PAQUE 96% w/w SUSP 176GM BTL As Ordered ONE (08:29)
[2019-07-21] MEDS ORDERED: E-Z-GAS II EFFERVESCENT PACKET (SODIUM BICARB./CITRIC ACID/SIMETHICONE) As Ordered ONE (08:29)
[2019-07-21 09:15] VITALS: BP 164/78
--- NOTE | 2019-07-21 09:23 | REP ---
Clinical: Epigastric pain. Technique: Single supine view of the abdomen and pelvis. Findings: Oral contrast material is identified outlining the relatively normal colon and appendix. No evidence for bowel obstruction. No organomegaly. No abnormal calcifications. Skeletal structures demonstrate degenerative changes along with right hip replacement. Left iliac endovascular stent noted. Impression: No evidence for bowel obstruction. Electronically Signed by Carlos Hendricks MD 07/21/2019 09:14 A
[2019-07-21] MEDS: amLODIPine 5 MG TAB PO SCH (09:30)
[2019-07-21] MEDS ORDERED: fentaNYL 100 MCG/2 ML INJECTION (J3010) As Ordered ONE (12:13)
[2019-07-21] MEDS ORDERED: diphenhydrAMINE INJ 50MG/ML VIAL (J1200) As Ordered ONE (12:13)
[2019-07-21] MEDS ORDERED: MIDAZOLAM INJ 2 MG/2 ML VIAL (J2250) As Ordered ONE (12:14)
[2019-07-21] MEDS ORDERED: HEPARIN 1,000 UNITS/ML 10ML VIAL (FOR RADIOLOGY& DIALYSIS ONLY) As Ordered ONE (12:14)
[2019-07-21] MEDS ORDERED: ISOVUE-300 61% 50ML VIAL (Q9967) As Ordered ONE (12:14)
--- NOTE | 2019-07-21 12:19 | IRHP ---
[facility] IR Pre-Procedure H & P General Date of Service: Jul 21, 2019 Procedure: Same Day Surgery Interval History and Physical I have seen the patient and reviewed last H & P performed within 30 days. There is no significant interval change. History of Present Illness Chief Complaint The patient is a 68-year-old female admitted with a reason for visit of Abdominal Pain. PRE-PROCEDURE DIAGNOSIS: visceral stenosis HEART: normal rate. LUNGS: normal breathing at rest. ASA Classification ASA Classification: II-Mild systemic disease Mallampati Score: II NPO: Yes Problems with prior sedation: No Obstructive Sleep Apnea: No Plan moderate sedation Allergies Coded Allergies: Penicillins (Verified Allergy, Unknown, hives, 12/13/18) aspirin (Verified Allergy, Unknown, rash, 12/13/18) iron (Verified Allergy, Unknown, flu symptoms, 12/13/18) vancomycin (Verified Allergy, Unknown, rash itching, 12/13/18) Home Medications No Active Prescriptions or Reported Meds VS, I&O, 24H, Fishbone Vital Signs/I&O Vital Signs Date Time Temp Pulse Resp B/P (MAP) Pulse Ox O2 Delivery O2 Flow Rate FiO2 07/21/19 11:43 98.7 72 18 96 Room Air 07/21/19 09:30 164/78 07/20/19 06:00 2.0 I&O- Last 24 Hours up to 6 AM 07/21/19 06:00 Intake Total 2650 ml Output Total 850 ml Balance 1800 ml Laboratory Data 24H LABS Laboratory Tests 2 07/21/19 05:36: Immature Granulocyte % (Auto) 0.3, Neutrophils (%) (Auto) 60.0, Lymphocytes (%) (Auto) 25.0, Monocytes (%) (Auto) 11.6H, Eosinophils (%) (Auto) 2.4, Basophils (%) (Auto) 0.7, Neutrophils # (Auto) 4.2, Lymphocytes # (Auto) 1.8, Monocytes # (Auto) 0.8, Eosinophils # (Auto) 0.2, Basophils # (Auto) 0.1, Nucleated Red Blood Cells % (auto) 0.0, Anion Gap 5L, Glomerular Filtration Rate > 60.0, Calcium Level 8.4L, Total Bilirubin 0.6, Aspartate Amino Transf (AST/SGOT) 24, Alanine Aminotransferase (ALT/SGPT) 35, Alkaline Phosphatase 103, Total Protein 6.3L, Albumin 2.9#L, Albumin/Globulin Ratio 0.85L CBC/BMP Laboratory Tests 07/21/19 05:36 CHEYENNE DEL TORO MD Jul 21, 2019 12:19
[2019-07-21] MEDS ORDERED: VERAPAMIL HCL 5 MG/2 ML VIAL As Ordered ONE (12:39)
[2019-07-21] MEDS ORDERED: LIDOCAINE 1% MDV 20ML VIAL As Ordered ONE (12:52)
[2019-07-21] MEDS ORDERED: NITROGLYCERIN IN D5W 25MG/250ML (100MCG/ML) As Ordered ONE (13:04)
--- NOTE | 2019-07-21 14:53 | POST-OPPD ---
Postoperative Procedure Note Date Of Procedure: Jul 21, 2019 Time Of Procedure: 14:51 PREOPERATIVE DIAGNOSIS: SMA stenosis. mesenteric angina POSTOPERATIVE DIAGNOSIS: same FINDINGS: occluded SMA. Patent celiac PROCEDURE: radial access and attempt at SMA catheterization failed. will bring patient back for groin access and SMA stenting, SURGEON: jan ANESTHESIA: mod sed ESTIMATED BLOOD LOSS: < 5 ml COMPLICATIONS: none POSTOPERATIVE CONDITION: stable CHEYENNE DEL TORO MD Jul 21, 2019 14:53
[2019-07-21] MEDS ORDERED: PERCOCET 5MG/325MG TAB As Ordered ONE (16:37)
--- NOTE | 2019-07-21 17:07 | IPN ---
DATE: 07/21/2019 Multiple attempts to see Renu today were unsuccessful. She is down in interventional radiology getter her procedures done.
[2019-07-21] MEDS: PANTOPRAZOLE 40MG INJ (PROTONIX) (C9113) IV SCH (18:08)
[2019-07-21 18:15] VITALS: BP 181/100
[2019-07-21] MEDS ORDERED: amLODIPine 5 MG TAB PO ONE (18:30)
[2019-07-21 22:00] VITALS: BP 130/74
[2019-07-22] VITALS (10 sets, daily range): BP systolic 115–162; BP diastolic 62–89
[2019-07-22] MEDS: KCL 20MEQ in NS 1000ML 1,000 ML IV SCH ×3 (02:11→15:30)
[2019-07-22] MEDS ORDERED: ONDANSETRON 4MG/2ML VIAL (J2405) IV PRN ×2 (02:45→17:45)
[2019-07-22] MEDS: PERCOCET 5MG/325MG TAB PO PRN ×5 (04:36→22:58)
[2019-07-22 07:49] LABS: BLOOD UREA NITROGEN 5 MG/DL (7-18); CALCIUM LEVEL 8.6 MG/DL (8.8-10.2); CARBON DIOXIDE LEVEL 24 MEQ/L (21-32); CHLORIDE LEVEL 106 MEQ/L (98-107); CREATININE FOR GFR 0.46 MG/DL (0.55-1.30); GLOMERULAR FILTRATION RATE > 60.0 (>45); GLUCOSE, FASTING 86 MG/DL (70-100); POTASSIUM SERUM 4.3 MEQ/L (3.5-5.1); SODIUM LEVEL 136 MEQ/L (136-145)
--- NOTE | 2019-07-22 08:40 | IRINPTCON ---
[facility] IR Inpatient Consultation IR Inpatient Consultation DATE: Jul 21, 2019 REASON FOR CONSULTATION/CHIEF COMPLAINT: Chronic abdominal pain. HISTORY OF PRESENT ILLNESS: 68-year-old female arteriopath with history of chronic abdominal pain for 1 year. Describes pain in the upper abdomen, it is constant, sometimes worse with food. She does not feel like eating and has lost 10 pounds in weight over this time period. Pain does not radiate anywhere. Not alleviated by anything. No fevers or chills. No hematemesis or melena. No recent endoscopy. ALLERGIES: Please see below. HOME MEDICATIONS: Please see below. PAST MEDICAL HISTORY: Coronary artery disease Psoriasis PVD status post stents and aortofemoral bypass graft Hypertension Osteoporosis DVT Hepatic steatosis PAST SURGICAL HISTORY: Hip surgery Hysterectomy FAMILY HISTORY: Noncontributory. SOCIAL HISTORY: Former smoker. Denies alcohol or drugs. REVIEW OF SYSTEMS: Otherwise negative PHYSICAL EXAMINATION: VITAL SIGNS: Please see below. GENERAL APPEARANCE: Appears well. Comfortable at rest. HEENT: No scleral icterus. RESPIRATORY: Normal breathing at rest. CARDIOVASCULAR: Normal rate. ABDOMEN: Soft. No rebound or guarding. EXTREMITIES: Moving all 4 extremities. NEUROLOGICAL: Alert and oriented. PSYCHIATRIC: Appropriate to circumstance. LABORATORY DATA: 07/21/2019 hemoglobin 12.9 hematocrit 39.5 WBC 7.1 platelets 238 sodium 138 potassium 4.4 BU and 5 creatinine 0.55 bilirubin 0.6 AST 24 ALT 35 ALP 103 Imaging: I personally reviewed the CT abdomen and pelvis with IV contrast from 07/19/2019. The celiac artery is patent. The SMA is occluded proximally and reconstitutes distally. The DEON is not visible. Incidentally there are a couple of compression fractures in the thoraco lumbar spine. ASSESSMENT/PLAN: 68-year-old female arteriopath presents with mesenteric angina and SMA occlusion on CT. I agree mesenteric angiogram and intervention is indicated. I'll schedule the patient for this procedure. I spent 30 minutes in consultation with the patient. Thank you for this referral. Allergies Coded Allergies: Penicillins (Verified Allergy, Unknown, hives, 12/13/18) aspirin (Verified Allergy, Unknown, rash, 12/13/18) iron (Verified Allergy, Unknown, flu symptoms, 12/13/18) vancomycin (Verified Allergy, Unknown, rash itching, 12/13/18) Home Medications No Active Prescriptions or Reported Meds VS, I&O, 24H, Fishbone Vital Signs/I&O Vital Signs Date Time Temp Pulse Resp B/P (MAP) Pulse Ox O2 Delivery O2 Flow Rate FiO2 07/22/19 06:00 97.4 84 18 131/87 (102) 90 Room Air 07/21/19 14:20 3 I&O- Last 24 Hours up to 6 AM 07/22/19 06:00 Intake Total 800 ml Output Total 1250 ml Balance -450 ml Laboratory Data 24H LABS Laboratory Tests 2 07/22/19 06:48: Anion Gap 6L, Glomerular Filtration Rate > 60.0, Calcium Level 8.6L CBC/BMP Laboratory Tests 07/22/19 06:48 CHEYENNE DEL TORO MD Jul 22, 2019 08:40
--- NOTE | 2019-07-22 08:53 | REP ---
IR ultrasound guided left radial artery access. IR aortogram. IR moderate sedation. Physician: Dr. Henderson. Clinical Information: Chronic mesenteric angina. Proximal superior mesenteric artery occlusion on imaging. Physician: Dr Henderson.Procedure: The patient was advised of the benefits, risks, and alternatives of the procedure and informed consent was obtained. Barbeau test was performed on the left radial artery and demonstrates a type A wave form.A time out was performed with verification of the patient's name, MRN, site of procedure, and type of procedure to be performed. The patient was positioned in the supine position on the angiographic table. The site was prepped and draped in the usual sterile fashion.Moderate sedation was performed by the physician including the presence of an independent trained observer who assisted in monitoring the patient's level of consciousness and physiological status. Following the administration of Fentanyl and Versed, the physician spent 120 minutes of continuous [id number] time with the patient. A information services assistant radiograph reveals aorto iliac stents. A preliminary ultrasound of the left radial artery demonstrates the artery is patent, pulsatile and 2.1 mm in diameter. The left radial artery was accessed using ultrasound guidance with a dedicated radial access kit. The needle was removed over the wire and a radial sheath was advanced over the wire into the radial artery. The inner stiffener and wire were removed. A radial cocktail consisting of 2.5 mg of Verapamil, nitroglycerin 200 mcg and heparin 3000 units was administered through the radial access sheath. A Glidewire in conjunction with a pigtail catheter was advanced through the sheath, and used to catheterize the descending aorta and abdominal aorta, under fluoroscopy guidance. The wire was removed. An abdominal aortogram was performed and this demonstrates patent celiac artery with normal flow in the common hepatic and gastroduodenal artery. Occluded superior mesenteric artery. The origin cannot be identified. Occluded inferior mesenteric artery. The pigtail catheter was exchanged over the wire for a Palmer catheter. The catheter in conjunction with a Glidewire was used under fluoroscopy guidance to try to catheterize the origin of the superior mesenteric artery. This failed. The Palmer catheter was exchanged over the wire for a Vert catheter. The Vert catheter in conjunction with the Glidewire under fluoroscopy guidance was used to try to catheterize the origin of the superior mesenteric artery. This was also unsuccessful. After multiple attempts, I decided to pull access and reattempt from right common femoral groin at a later date. Catheter and wire were removed. A radial band was applied to the left wrist and inflated per protocol. The radial sheath was removed without difficulty. The patient tolerated the procedure well and was transferred to PRU in stable condition. Complications: None. Estimated blood loss: Less than 5 ml. Impression: 1. Aortogram demonstrates patent celiac artery. Occluded origin of superior mesenteric artery and inferior mesenteric artery. 2. Unsuccessful catheterization of the superior mesenteric artery from radial access. I will bring the patient back for right groin access and attempt catheterization from below. Thank you this referral. Electronically Signed by Ivet Henderson MD 07/22/2019 08:51 A
[2019-07-22] MEDS ORDERED: PNEUMOCOCCAL VACCINE 0.5ML SYRINGE(90732) PNEUMOVAX 23 IM ONE (09:00)
[2019-07-22] MEDS: amLODIPine 5 MG TAB PO SCH (09:07)
--- NOTE | 2019-07-22 11:05 | IPNPDOC ---
Subjective General Date/Time Seen The patient was seen on 07/22/19 at 10:56. Subject Chief Complaint/History The patient is a 68-year-old female admitted with a reason for visit of Abdominal Pain. Patient seen this morning. Pain is still there but better. She is able to tolerate some food without any documented episodes of vomiting here. She had a mesenteric angiogram performed yesterday but was not able to cannulate the SMA and per nursing reports would be re-done as an outpt on . Current Medications Current Medications Current Medications Medications (Trade) Dose Ordered Sig/Billy Route PRN Reason Start Time Stop Time Status Last Admin Dose Admin Acetaminophen (Tylenol Arthritis Er) 1,300 mg Q8HP PRN PO PAIN 07/19/19 20:30 07/19/19 20:44 DC Acetaminophen (Tylenol Tab) 650 mg Q4HP PRN PO PAIN OR FEVER 07/20/19 02:00 07/20/19 02:01 Al Hydrox/Mg Hydrox/Simethicone (Mylanta) 30 ml Q4HP PRN PO HEARTBURN 07/20/19 18:45 07/20/19 19:00 Amlodipine Besylate (Norvasc) 5 mg DAILY PO 07/20/19 09:00 07/22/19 09:07 Diatrizoate Meglum/ Diatrizoate Sod (Gastrografin) 10 ml Q30M PO 07/19/19 15:55 07/19/19 16:26 DC 07/19/19 16:39 Enoxaparin Sodium (Lovenox) 40 mg DAILY SC 07/20/19 09:00 07/20/19 01:20 DC Home Med (Med Rec Complete!) ASDIRECTED XX 07/19/19 21:00 07/19/19 21:00 DC Ondansetron HCl (ZOFRAN INJection) 4 mg Q6HP PRN IV NAUSEA OR VOMITING 07/22/19 02:45 07/22/19 02:56 Oxycodone/ Acetaminophen (Percocet 5mg/ 325mg Tablet) 1 tab Q12HP PRN PO pain 5-10 in severity 07/19/19 20:45 07/20/19 04:40 DC 07/19/19 23:02 Oxycodone/ Acetaminophen (Percocet 5mg/ 325mg Tablet) 1 tab Q4HP PRN PO pain 5-10 in severity 07/20/19 04:45 07/22/19 09:08 Pantoprazole Sodium (Protonix) 40 mg Q24H IV 07/20/19 18:00 07/21/19 18:08 Potassium Chloride/Sodium Chloride 1,000 ml @ 125 mls/hr Q8H IV 07/20/19 15:30 07/22/19 09:10 Allergies Coded Allergies: Penicillins (Verified Allergy, Unknown, hives, 12/13/18) aspirin (Verified Allergy, Unknown, rash, 12/13/18) iron (Verified Allergy, Unknown, flu symptoms, 12/13/18) vancomycin (Verified Allergy, Unknown, rash itching, 12/13/18) Objective Physical Examination Examination GENERAL APPEARANCE:look smore comfortable today. SKIN: Warm and moist. HEENT: Normocephalic, atraumatic. [place] palpebral conjunctiva, anicteric scler ae. Lips and mucosa appear moist. NECK: Supple, no thyromegaly. No obvious jugular venous distention. LUNGS: Clear to auscultation bilaterally. No wheezing appreciated. HEART: No chest wall abnormalities. Regular rate and rhythm with no murmurs appreciated. ABDOMEN: Abdomen is obese, soft, nondistended. minimal epigastric tenderness on deep palpation (more an ache as per patient) . EXTREMITIES: Extremities have no deformities. No edema identified. Vital Signs Vital Signs Date Time Temp Pulse Resp B/P (MAP) Pulse Ox O2 Delivery O2 Flow Rate FiO2 07/22/19 09:39 18 07/22/19 06:00 97.4 84 131/87 (102) 90 Room Air 07/21/19 14:20 3 I&Os I&O- Last 24 Hours up to 6 AM 07/22/19 06:00 Intake Total 2300 ml Output Total 1250 ml Balance 1050 ml Laboratory Data Labs 24H Laboratory Tests 2 07/22/19 06:48: Anion Gap 6L, Glomerular Filtration Rate > 60.0, Calcium Level 8.6L CBC/BMP Laboratory Tests 07/22/19 06:48 Impression epigastric pain I think this will still be secondary to some form of chronic mesenteric ischemia from the SMA occlusion and she is scheduled to have a repeat mesenteric angiogram next week. As I discussed with her I will do an upper endoscopy to rule out PUD. She already is on some treatment for it (protonix) which she can go home with after the procedure. Plan / VTE VTE Prophylaxis Ordered?: Yes YAKOV HUNTER MD Jul 22, 2019 11:05
[2019-07-22] MEDS ORDERED: AMLO5TAB6 PO (14:19)
--- NOTE | 2019-07-22 17:37 | ROOR ---
Patient Name: Renu Yan Procedure Date: 07/22/2019 2:09 PM Date of : 1950 Age: 68 Room: [facility] Gender: Female Note Status: Finalized Procedure: Upper GI endoscopy Indications: Epigastric abdominal pain Providers: Db Johnson MD Referring MD: Torin Fournier MD Requesting Provider: Medicines: Monitored Anesthesia Care Complications: No immediate complications. Procedure: Pre-Anesthesia Assessment: - Prior to the procedure, a History and Physical was performed, and patient medications and allergies were reviewed. The patient is competent. The risks and benefits of the procedure and the sedation options and risks were discussed with the patient. All questions were answered and informed consent was obtained. Patient identification and proposed procedure were verified by the physician, the nurse and the breaker operator in the procedure room. Mental Status Examination: alert and oriented. Airway Examination: normal oropharyngeal airway and neck mobility. Respiratory Examination: clear to auscultation. CV Examination: normal. Prophylactic Antibiotics: The patient does not require prophylactic antibiotics. Prior Anticoagulants: The patient has taken no previous anticoagulant or antiplatelet agents. ASA Grade Assessment: III - A patient with severe systemic disease. After reviewing the risks and benefits, the patient was deemed in satisfactory condition to undergo the procedure. The anesthesia plan was to use monitored anesthesia care (MAC). Immediately prior to administration of medications, the patient was re-assessed for adequacy to receive sedatives. The heart rate, respiratory rate, oxygen saturations, blood pressure, adequacy of pulmonary ventilation, and response to care were monitored throughout the procedure. The physical status of the patient was re-assessed after the procedure. The Endoscope was introduced through the mouth, and advanced to the second part of duodenum. The upper GI endoscopy was accomplished without difficulty. The patient tolerated the procedure well. Findings: The Z-line was regular and was found 37 cm from the incisors. The examined esophagus was normal. A small hiatal hernia was present. Patchy mild inflammation characterized by adherent blood, congestion (edema) and aphthous ulcerations was found in the gastric antrum. Biopsies were taken with a cold forceps for Helicobacter pylori testing. Estimated blood loss was minimal. The duodenal bulb, first portion of the duodenum and second portion of the duodenum were normal. Impression: - Z-line regular, 37 cm from the incisors. - Normal esophagus. - Small hiatal hernia. - Atrophic gastritis. Biopsied. - Normal duodenal bulb, first portion of the duodenum and second portion of the duodenum. Recommendation: - Admit the patient to [facility] for ongoing care. Attending Participation: I personally performed the entire procedure. Db Johnson MD Db Johnson MD 07/22/2019 5:37:23 PM Electronically signed by Db Johnson MD Number of Addenda: 0 Note Initiated On: 07/22/2019 2:09 PM Estimated Blood Loss: Estimated blood loss was minimal.
[2019-07-22] MEDS ORDERED: propofoL 200 MG/20 ML VIAL As Ordered ONE (17:38)
[2019-07-22] MEDS ORDERED: LIDOCAINE 2% INJ 100 MG/5 ML SDV (FOR ANES.) As Ordered ONE (17:38)
[2019-07-22] MEDS ORDERED: LR 1,000 ML IV SCH (17:45)
[2019-07-22] MEDS: PANTOPRAZOLE 40MG INJ (PROTONIX) (C9113) IV SCH (18:56)
[2019-07-23 02:00] VITALS: BP 117/67
[2019-07-23] MEDS: PERCOCET 5MG/325MG TAB PO PRN ×4 (03:19→17:14)
[2019-07-23 06:00] VITALS: BP 132/74
[2019-07-23 08:34] VITALS: BP 132/74
[2019-07-23] MEDS: amLODIPine 5 MG TAB PO SCH (08:34)
[2019-07-23 10:00] VITALS: BP 133/98
[2019-07-23 14:00] VITALS: BP 133/78
[2019-07-23] MEDS: PANTOPRAZOLE 40MG INJ (PROTONIX) (C9113) IV SCH (17:13)
[2019-07-23 17:44] VITALS: BP 133/78
--- NOTE | 2019-07-24 00:10 | IPNPDOC ---
Text Note Date of Service The patient was seen on 07/23/19. NOTE Addendum: Discharge orders were written 07/22, but patient did not feel ready to go home, and stayed overnight until 07/23, when she felt comfortable going home. VS,Fishbone, I+O VS, Fishbone, I+O Vital Signs Date Time Temp Pulse Resp B/P (MAP) Pulse Ox O2 Delivery O2 Flow Rate FiO2 07/23/19 17:44 98.3 76 16 133/78 92 Room Air 07/21/19 14:20 3 I&O- Last 24 Hours up to 6 AM 07/24/19 06:00 Intake Total 400 ml Balance 400 ml FREDIS HAILE DO Jul 24, 2019 00:10
--- NOTE | 2019-08-29 12:01 | DSES ---
DATE OF ADMISSION: 07/19/2019 DATE OF DISCHARGE: 07/23/2019 PRINCIPAL DIAGNOSIS: Intractable abdominal pain from superior mesenteric artery stenosis. HISTORY: Patient has had chronic abdominal pain. She was admitted for evaluation of this. She had been followed closely by Dr. Johnson from surgery. She was admitted to the [facility] service. HOSPITAL COURSE: CT of the abdomen and pelvis suggested SMA occlusion. She was seen by Dr. Henderson for interventional radiology who did an arteriogram that showed a patent celiac artery, occluded origin of superior mesenteric artery and inferior mesenteric artery. Unsuccessful catheterization of superior mesenteric artery from the radial approach. Plan was for her to return for attempt from the groin approach at a later date. She also underwent a planned upper endoscopy by Dr. Johnson, which was done on 07/22. Biopsies showed some erosive gastritis. DISPOSITION: She was discharged home in stable condition on 07/23/2019. Her medications were unchanged from admission. She had an outpatient appointment with Dr. Henderson on 07/27/2019 and followup with her primary care provider in a week. Activity and diet as tolerated.
== END 2019-07-23 17:40 | disposition home or self-care (01) | DRG 393 ==
LOC: M ED 12:30 → EDBD 12:30 → M ED INP 20:29 → M MSPAV 22:30
PROVIDERS: ADMIT Internal Medicine; ATTEND Family Medicine
PROC: 0DB77ZX Excision of Stomach, Pylorus, Via Natural or Artificial Opening, Diagnostic (ICD-10-PCS; principal; 2019-07-22 14:00)
DX: K55.1 Chronic vascular disorders of intestine (principal); K29.41 Chronic atrophic gastritis with bleeding; I25.10 Atherosclerotic heart disease of native coronary artery without angina pectoris; E78.5 Hyperlipidemia, unspecified; L40.9 Psoriasis, unspecified; I73.9 Peripheral vascular disease, unspecified; Z95.1 Presence of aortocoronary bypass graft; I10 Essential (primary) hypertension; K76.0 Fatty (change of) liver, not elsewhere classified; M81.0 Age-related osteoporosis without current pathological fracture; Z87.81 Personal history of (healed) traumatic fracture; Z96.641 Presence of right artificial hip joint; Z90.79 Acquired absence of other genital organ(s); Z90.49 Acquired absence of other specified parts of digestive tract; Z87.891 Personal history of nicotine dependence; Z88.0 Allergy status to penicillin; Z88.4 Allergy status to anesthetic agent; Z88.1 Allergy status to other antibiotic agents; Z88.8 Allergy status to other drugs, medicaments and biological substances

== ENCOUNTER → 2019-07-27 | Outpatient (CLI) | payer MEDICARE, MEDICAID ==
[~2019-07-27] MED LIST changes: +AMLO5TAB6 PO; +ISOVUE-300 61% 100ML VIAL (Q9967) As Ordered ONE; +ISOVUE-300 61% 50ML VIAL (Q9967) As Ordered ONE; +LIDOCAINE 1% MDV 20ML VIAL As Ordered ONE; +LIDOCAINE 4% CREAM 5GM (LMX4) As Ordered ONE; +MIDAZOLAM INJ 2 MG/2 ML VIAL (J2250) As Ordered ONE; +PROMETHAZINE INJ 25 MG/ML VIAL (J2550) As Ordered ONE; +diphenhydrAMINE INJ 50MG/ML VIAL (J1200) As Ordered ONE; +fentaNYL 100 MCG/2 ML INJECTION (J3010) As Ordered ONE
--- NOTE | 2019-07-27 15:16 | POST-OPPD ---
Postoperative Procedure Note Date Of Procedure: Jul 27, 2019 Time Of Procedure: 15:13 PREOPERATIVE DIAGNOSIS: sma occlusion. mesenteric angina POSTOPERATIVE DIAGNOSIS: same FINDINGS: smal occlusion. PROCEDURE: attempted SMA acces from right groin access. still unable to catheterize occluded SMA. Will refer to surgery for surgical options SURGEON: jan ANESTHESIA: mod sed ESTIMATED BLOOD LOSS: < 5 ml COMPLICATIONS: none POSTOPERATIVE CONDITION: stable CHEYENNE DEL TORO MD Jul 27, 2019 15:16
[2019-07-27 18:33] VITALS: BP 165/86
--- NOTE | 2019-07-28 12:59 | REP ---
IR mesenteric angiogram. IR moderate sedation. IR right groin ultrasound and ultrasound guided femoral artery access. Clinical Information: Mesenteric angina. SMA occlusion. Physician: Dr Henderson.Procedure: The patient was advised of the benefits, risks, and alternatives of the procedure and informed consent was obtained.A time out was performed with verification of the patient's name, MRN, site of procedure, and type of procedure to be performed. The patient was positioned in the supine position on the angiographic table. The site was prepped and draped in the usual sterile fashion.Moderate sedation was performed by the physician including the presence of an independent trained observer who assisted in monitoring the patient's level of consciousness and physiological status. Following the administration of Fentanyl and Versed, the physician spent 90 minutes of continuous [id number] time with the patient. A compacting machine operator/tender radiograph reveals right hip hardware. Left iliac stent. The right femoral artery was accessed with a micropuncture kit. A [employer] wire was advanced into the aorta. The micropuncture sheath was exchanged over the wire for a a 5-Cymraes vascular sheath. A 4-Cymraes flush catheter was advanced over the wire and used to catheterize the aortic bifurcation. A Glidewire was advanced through the catheter into the left external iliac artery. The catheter was exchanged over the wire for a Hill II catheter. This was formed over the aortic bifurcation. The catheter was used to catheterize the celiac artery and an arteriogram was performed. This demonstrates good flow in the celiac artery and gastroduodenal artery with flow into the right gastroepiploic artery. The celiac artery was disengaged and the Hill catheter was used to perform an aortogram. This demonstrates patent renal arteries. The origin of the superior mesenteric artery is not seen. Based on CT location of the artery, the diagnostic catheter in conjunction with a Glidewire was used under fluoroscopy guidance to try to engage the origin of the superior mesenteric artery. Once engaged, the guide wire was advanced under fluoroscopy guidance but could not be passed into the superior mesenteric artery. The wire was removed. A micro catheter and micro wire were then inserted through the diagnostic catheter and under fluoroscopy guidance, used to try to catheterize the superior mesenteric artery. This failed. The catheter was removed over the wire. A SOS catheter was advanced over the wire and used to try to engage the SMA. The origin of the artery was engaged but the wire could not be passed into the SMA. The SOS catheter was exchanged over the wire for a Cobra catheter. The Cobra catheter in conjunction with a Glidewire was used under fluoroscopy guidance to try to engage the SMA origin. This failed. The catheter and wire were removed. A 5-Cymraes Mynx device was used to close the right groin arteriotomy and hemostasis achieved. A sterile dressing was applied to the site. Patient tolerated the procedure well and was transferred to PRU in stable condition. Complications: None. Estimated blood loss: Less than 5 ml. Impression: 1. Right groin access and angiogram with unsuccessful cannulation of occluded superior mesenteric artery. 2. Celiac artery is patent. 3. Will refer to surgery for surgical bypass options. Thank you for this referral. Electronically Signed by Ivet Henderson MD 07/28/2019 12:58 P
== END ==
LOC: M IRPRO 12:35
PROVIDERS: ATTEND Radiology Diagnostic Radiology
DX: K55.1 Chronic vascular disorders of intestine (principal); K55.069 Acute infarction of intestine, part and extent unspecified; I10 Essential (primary) hypertension; I25.10 Atherosclerotic heart disease of native coronary artery without angina pectoris; E78.5 Hyperlipidemia, unspecified; R10.9 Unspecified abdominal pain; Z79.01 Long term (current) use of anticoagulants; Z95.828 Presence of other vascular implants and grafts
CPT/HCPCS: 36245; 75726; 99152; 99153; C1760; C1769; C1887; C1894; G0269; J1200; J2250; J3010; Q9967

== ENCOUNTER 2019-08-07 11:18 | Inpatient (IN) | payer MEDICARE, MEDICAID ==
[~2019-08-07] VITALS: Ht 157.5 cm; Wt 61.3 kg
[2019-08-07] MEDS: PANTOPRAZOLE 40MG INJ (PROTONIX) (C9113) IV SCH (09:00)
[~2019-08-07 11:18] MED LIST changes: -ISOVUE-300 61% 100ML VIAL (Q9967) As Ordered ONE; -ISOVUE-300 61% 50ML VIAL (Q9967) As Ordered ONE; -LIDOCAINE 1% MDV 20ML VIAL As Ordered ONE; -LIDOCAINE 4% CREAM 5GM (LMX4) As Ordered ONE; -MIDAZOLAM INJ 2 MG/2 ML VIAL (J2250) As Ordered ONE; -PROMETHAZINE INJ 25 MG/ML VIAL (J2550) As Ordered ONE; -diphenhydrAMINE INJ 50MG/ML VIAL (J1200) As Ordered ONE; -fentaNYL 100 MCG/2 ML INJECTION (J3010) As Ordered ONE
[2019-08-07] MEDS ORDERED: ONDANSETRON 4MG/2ML VIAL (J2405) IV ONE (12:15)
[2019-08-07] MEDS: MORPHINE 4 MG/ML 1ML VIAL/SYRINGE (J2270) IV PRN ×3 (12:16→21:08)
[2019-08-07 12:43] LABS: BASO # 0.1 10^3/uL (0.0-0.2); BASO % 0.4 % (0.0-1.0); EOS % 0.1 % (0.0-3.0); HEMATOCRIT 46.7 % (36.0-47.0); HEMOGLOBIN 15.7 g/dl (12.0-15.5); LYMPH # 0.8 10^3/uL (1.5-5.0); LYMPH % 5.5 % (24.0-44.0); MEAN CORPUSCULAR HEMOGLOBIN 32.8 pg (27.0-33.0); MEAN CORPUSCULAR HGB CONC 33.6 g/dl (32.0-36.5); MEAN CORPUSCULAR VOLUME 97.5 fl (80.0-96.0); MONO # 0.7 10^3/uL (0.0-0.8); MONO % 4.9 % (0.0-5.0); NEUTROPHILS # 13.4 10^3/uL (1.5-8.5); NEUTROPHILS % 88.4 % (36.0-66.0); PLATELET COUNT, AUTOMATED 450 10^3/uL (150-450); RED BLOOD COUNT 4.79 10^6/uL (4.00-5.40); WHITE BLOOD COUNT 15.2 10^3/uL (4.0-10.0)
[2019-08-07 12:56] LABS: ALBUMIN 3.5 GM/DL (3.2-5.2); ALT/SGPT 321 U/L (12-78); AMYLASE 72 U/L (25-115); BILIRUBIN,DIRECT 0.3 MG/DL (0.0-0.2); BILIRUBIN,TOTAL 0.6 MG/DL (0.2-1.0); BLOOD UREA NITROGEN 21 MG/DL (7-18); CALCIUM LEVEL 8.9 MG/DL (8.8-10.2); CARBON DIOXIDE LEVEL 28 MEQ/L (21-32); CHLORIDE LEVEL 95 MEQ/L (98-107); CREATININE FOR GFR 0.89 MG/DL (0.55-1.30); GLOMERULAR FILTRATION RATE > 60.0 (>45); GLUCOSE, FASTING 133 MG/DL (70-100); LIPASE 151 U/L (73-393); SODIUM LEVEL 134 MEQ/L (136-145); TOTAL PROTEIN 7.9 GM/DL (6.4-8.2)
[2019-08-07] MEDS ORDERED: NS 1,000 ML IV ONE (13:30)
[2019-08-07 13:41] LABS: INFLUENZA A AMPLIFICATION NEGATIVE (NEGATIVE); INFLUENZA B AMPLIFICATION NEGATIVE (NEGATIVE)
[2019-08-07] MEDS ORDERED: ISOVUE-370 76% 100ML VIAL (Q9967) As Ordered ONE (13:53)
[2019-08-07] MEDS ORDERED: KCL 10MEQ/100ML SWI (KRUN) 10 MEQ in IV 1 EA IV ONE (15:00)
[2019-08-07] MEDS ORDERED: POTASSIUM CHLORIDE 10 MEQ SR TABLET PO ONE (15:00)
[2019-08-07] MEDS ORDERED: AMLO5TAB6 PO (16:16)
[2019-08-07] MEDS ORDERED: NYST10CR TOP (16:16)
[2019-08-07 17:00] VITALS: BP 165/87
--- NOTE | 2019-08-07 17:47 | HPEPDOC ---
General Date of Admission 08/07/19 Date of Service: Aug 07, 2019 Chief Complaint The patient is a 69-year-old female admitted with a reason for visit of N/V. Source: Patient, RN/, Old records Associated Symptoms: Nausea, Vomiting History of Present Illness 69 year old female present to [facility] ED with 7 days of watery diarrhea, abdominal pain and nausea. She tells me she has had chronic abdominal pain for many years. Then in December this year she had cholecystectomy done after which the pain was a little better but never did go away. Her pain is located in the epigastrium , burning in nature sometimes goes to [facility] right upper quadrant and to the back. It is constant about 8/10 in intensity now a little better after morphine, associated with nausea and diarrhea. He diarrhea has been really bad since yesterday . Its constant watery in nature. No blood seen. She recently in the first week of july had an EGD and angiogram of the abdomen. Angio showed SMA chronic occlusion. and EGD showed patchy mild inflammation characterized by adherent blood, congestion (edema) and aphthous ulcerations was found in the gastric antrum. She was admitted for evaluation of abdominal pain and diarrhea. Home Medications Scheduled Amlodipine Besylate (Amlodipine Besylate) 5 Mg Tablet, 5 MG PO DAILY, (Reported) Allergies Coded Allergies: Penicillins (Verified Allergy, Unknown, hives, 12/13/18) aspirin (Verified Allergy, Unknown, rash, 12/13/18) iron (Verified Allergy, Unknown, flu symptoms, 12/13/18) vancomycin (Verified Allergy, Unknown, rash itching, 12/13/18) Past Medical History Medical History SMA occlusion, chronic mesenteric ischemia and chronic abdominal pain. EGD: A small hiatal hernia was present. Patchy mild inflammation characterized by adherent blood, congestion (edema) and aphthous ulcerations was found in the gastric antrum. Chronic CAD / Dyslipidemia Psoriasis PVD status post stents and aortofemoral bypass graft Chronic hypertension Osteoporosis with history of of T11-12, L1-2, 3 and 4, compression fractures Remote history of DVT was previously on Coumadin Hepatic steatosis. Depression Surgical History History of left ORIF History of right hip arthroplasty Status post hysterectomy. Status post 2 Family History Prostate cancer Coronary artery disease Social History * Smoker: former Smoker Alcohol: Denies Drugs: denies A-FIB/CHADSVASC A-FIB History Current/History of A-Fib/PAF?: No Review of Systems Constitutional: Denies: Chills, Fever, Night Sweats Eyes: Denies: Pain, Vision change ENT: Denies: Head Aches, Ear Pain, Dysphagia Skin: Denies: Rash, Lesions, Breakdown Pulmonary: Denies: Dyspnea, Cough Cardiovascular: Reports: Lt Headedness; Denies: Chest Pain, Palpitations, Orthopnea, Paroxysmal Noc. Dyspnea Gastrointestinal: Reports: Nausea, Vomiting, Abdominal Pain, Diarrhea Genitourinary: Denies: Dysuria, Frequency, Incontinence, Retention Hematologic: Denies: Bruising, Bleeding Excessively Musculoskeletal: Denies: Neck Pain, Back Pain, Joint Pain, Muscle Pain, Spasms Neurological: Denies: Weakness, Numbness, Change in speech, Confusion Physical Examination General Exam: Positive: Alert, Cooperative, No Acute Distress Eye Exam: Positive: PERRLA, Conjunctiva & lids normal, EOMI; Negative: Sclera icteric ENT Exam: Positive: Atraumatic, Mucous membr. moist/pink, Pharynx Normal Neck Exam: Positive: Supple; Negative: JVD, thyromegaly Chest Exam: Positive: Clear to auscultation, Normal air movement, Diminished (overall breath sounds.) Heart Exam: Positive: Rate Normal, Regular Rhythm, Normal S1, Normal S2; Negative: Murmurs, Rubs Telemetry: Positive: No significant arrhythmia Abdomen Exam: Positive: BS Hypoactive, Soft, Tenderness (in the epigastrium); Negative: Hepatospenomegaly Extremity Exam: Negative: Clubbing, Cyanosis, Edema Skin Exam: Positive: Nl turgor and temperature; Negative: Breakdown, Lesion Vital Signs Vital Signs Date Time Temp Pulse Resp B/P (MAP) Pulse Ox O2 Delivery O2 Flow Rate FiO2 08/07/19 15:56 18 08/07/19 15:45 105 138/95 (109) 90 Nasal Cannula 1.0 08/07/19 11:29 97.8 Laboratory Data Labs 24H Laboratory Tests 2 08/07/19 11:37: Immature Granulocyte % (Auto) 0.7, Neutrophils (%) (Auto) 88.4H, Lymphocytes (%) (Auto) 5.5L, Monocytes (%) (Auto) 4.9, Eosinophils (%) (Auto) 0.1, Basophils (%) (Auto) 0.4, Neutrophils # (Auto) 13.4H, Lymphocytes # (Auto) 0.8L, Monocytes # (Auto) 0.7, Eosinophils # (Auto) 0.0, Basophils # (Auto) 0.1, Nucleated Red Blood Cells % (auto) 0.0, Anion Gap 11, Glomerular Filtration Rate > 60.0, Lactic Acid Level 3.0*H, Calcium Level 8.9, Total Bilirubin 0.6, Direct Bilirubin 0.3H, Aspartate Amino Transf (AST/SGOT) 379H, Alanine Aminotransferase (ALT/SGPT) 321H, Alkaline Phosphatase 139H, Total Protein 7.9, Albumin 3.5, Albumin/Globulin Ratio 0.80L, Amylase Level 72, Lipase 151 08/07/19 13:02: Influenza Type A (RT-PCR) NEGATIVE, Influenza Type B (RT-PCR) NEGATIVE CBC/BMP Laboratory Tests 08/07/19 11:37 Assessment/Plan 69 year old female present to the ED with 7 days of watery diarrhea, abdominal pain and nausea. She tells me she has had chronic abdominal pain for many years. Then in December this year she had cholecystectomy done after which the pain was a little better but never did go away. Her pain is located in the epigastrium , burning in nature sometimes goes to the right upper quadrant and to the back. It is constant about 8/10 in intensity now a little better after morphine, associated with nausea and diarrhea. He diarrhea has been really bad since yesterday . Its constant watery in nature. No blood seen. She recently in the first week of july had an EGD and angiogram of the abdomen. Angio showed SMA chronic occlusion. and EGD showed patchy mild inflammation characterized by adherent blood, congestion (edema) and aphthous ulcerations was found in the gastric antrum. She was admitted for evaluation of abdominal pain and diarrhea. Acute on chronic Abdominal pain, vomiting and diarrhea. with elevated transaminases will get MRCP to see for any CBD pathology like a CBD stone. she is s/p cholecystectomy . Pathology showed chronic cholecystitis and cholesterolosis did not have any definite stone sin it. Need to rule out infective cause will send GI panel , hepatitis panel. start on ciprofloxacin and flagyl, pain control with morphine. Chronic abdominal pain Probably due to chronic mesentric ischemia IR failed to canulate the SMA will have to consult vascular surgery for further intervention. Gastritis/Hiatal hernia/aphthous ulceration EGD: A small hiatal hernia was present. Patchy mild inflammation characterized by adherent blood, congestion (edema) and aphthous ulcerations was found in the gastric antrum. PPI and sucralfate. Chronic CAD / Dyslipidemia not on any meds. Psoriasis PVD status post stents and aortofemoral bypass graft not on any meds Chronic hypertension on amlodipine will hold for now. Osteoporosis with history of of T11-12, L1-2, 3 and 4, compression fractures Remote history of DVT was previously on Coumadin Hepatic steatosis. Depression not on any meds. Plan / VTE VTE Prophylaxis Ordered?: Yes BEREKET TAM MD Aug 07, 2019 17:03
[2019-08-07] MEDS: SUCRALFATE 1 GM TAB PO SCH ×2 (18:20→20:12)
[2019-08-07] MEDS: KCL 40MEQ IN D5/NS 1000ML 1,000 ML IV SCH (18:20)
[2019-08-07] MEDS: CIPROFLOXACIN 400 MG in IV 1 EA IV SCH (18:20)
[2019-08-07] MEDS: metroNIDAZOLE 500 MG in IV 1 EA IV SCH (20:12)
[2019-08-07] MEDS: HEPARIN SOD (PORCINE) 5000 UNITS/ML VIAL SC SCH (20:12)
[2019-08-07 20:34] VITALS: BP 134/81
[2019-08-07] MEDS: ONDANSETRON 4MG/2ML VIAL (J2405) IV PRN (21:08)
[2019-08-08] MEDS: MORPHINE 4 MG/ML 1ML VIAL/SYRINGE (J2270) IV PRN ×6 (01:54→22:33)
--- NOTE | 2019-08-08 02:10 | REP ---
CHEST: REASON: History of COPD. COMPARISON: The latest prior, 06/23/2017. The technique utilized in obtaining the radiograph has magnified the cardiac silhouette and accentuated the interstitial markings. FINDINGS: The superior mediastinal structures are midline. The cardiac silhouette is unremarkable in size, shape, and position. The diaphragmatic surfaces of the lungs are regular, and the costophrenic angles are clear. The pulmonary lanier are clear. The imaged osseous structures are intact. IMPRESSION: There is no acute cardiopulmonary disease. No significant change from the prior exam other than technique. Electronically Signed by Moris Whitten DO 08/12/2019 04:12 P
[2019-08-08] MEDS: metroNIDAZOLE 500 MG in IV 1 EA IV SCH ×3 (04:33→20:18)
[2019-08-08 05:43] VITALS: BP 123/79
[2019-08-08 05:54] LABS: BASO # 0.1 10^3/uL (0.0-0.2); BASO % 0.5 % (0.0-1.0); EOS # 0.1 10^3/uL (0.0-0.5); EOS % 0.5 % (0.0-3.0); HEMATOCRIT 39.5 % (36.0-47.0); LYMPH # 1.6 10^3/uL (1.5-5.0); LYMPH % 11.3 % (24.0-44.0); MEAN CORPUSCULAR HEMOGLOBIN 32.5 pg (27.0-33.0); MEAN CORPUSCULAR HGB CONC 32.7 g/dl (32.0-36.5); MEAN CORPUSCULAR VOLUME 99.5 fl (80.0-96.0); MONO # 1.4 10^3/uL (0.0-0.8); MONO % 9.8 % (0.0-5.0); NEUTROPHILS # 11.2 10^3/uL (1.5-8.5); NEUTROPHILS % 77.3 % (36.0-66.0); PLATELET COUNT, AUTOMATED 358 10^3/uL (150-450); RED BLOOD COUNT 3.97 10^6/uL (4.00-5.40); WHITE BLOOD COUNT 14.5 10^3/uL (4.0-10.0)
[2019-08-08 06:02] LABS: HEMOGLOBIN 12.9 g/dl (12.0-15.5)
[2019-08-08] MEDS: ONDANSETRON 4MG/2ML VIAL (J2405) IV PRN (06:04)
[2019-08-08] MEDS: CIPROFLOXACIN 400 MG in IV 1 EA IV SCH ×2 (06:04→17:30)
[2019-08-08 06:20] LABS: ALBUMIN 2.6 GM/DL (3.2-5.2); ALT/SGPT 221 U/L (12-78); BILIRUBIN,TOTAL 0.3 MG/DL (0.2-1.0); BLOOD UREA NITROGEN 10 MG/DL (7-18); CALCIUM LEVEL 8.3 MG/DL (8.8-10.2); CARBON DIOXIDE LEVEL 30 MEQ/L (21-32); CHLORIDE LEVEL 103 MEQ/L (98-107); CREATININE FOR GFR 0.58 MG/DL (0.55-1.30); GLOMERULAR FILTRATION RATE > 60.0 (>45); GLUCOSE, FASTING 127 MG/DL (70-100); POTASSIUM SERUM 3.9 MEQ/L (3.5-5.1); SODIUM LEVEL 138 MEQ/L (136-145); TOTAL PROTEIN 6.3 GM/DL (6.4-8.2)
[2019-08-08] MEDS: SUCRALFATE 1 GM TAB PO SCH ×4 (07:49→20:18)
[2019-08-08] MEDS: HEPARIN SOD (PORCINE) 5000 UNITS/ML VIAL SC SCH ×2 (07:49→20:18)
[2019-08-08] MEDS: PANTOPRAZOLE 40MG INJ (PROTONIX) (C9113) IV SCH (07:49)
--- NOTE | 2019-08-08 08:18 | REP ---
REASON: Diffuse abdominal pain. COMPARISON: Multiple, the latest 07/19/2019 also after intravenous contrast. Contrast today 100 mL of Isovue 370. There is no significant change in the appearance of the lung bases. There are no pleural or pericardial effusions. There is common bile duct dilatation and mild intrahepatic ductal dilatation status quo consistent with the patient's postcholecystectomy state. There are no enhancing hepatic abnormalities. The spleen, pancreas, adrenal glands, and kidneys are unchanged. There are multiple bilateral renal cortical cysts. The abdominal aorta and para-aortic regions are unchanged. Heavy calcific atherosclerotic change is again seen in the abdominal aorta and iliac arteries. No free fluid or free air has developed. The bowel loops and their mesenteries are within normal limits. There is no evidence of an intra-abdominal mass or adenopathy. CT PELVIS: [place] artifact arising from a right hip prosthesis again obscure multiple images of the pelvis status quo. There has been no significant change in the appearance of the intrapelvic contents compared to the prior exam. There is no evidence of gross free fluid or free air. There is no evidence of a mass or adenopathy. The bowel loops and their mesenteries are again seen to be within normal limits. Bone window technique throughout the examination shows no significant change in the appearance of the osseous structures. Chronic degenerative changes are seen involving the imaged portion of the spine, left hip and sacroiliac joints along with previous right hip prosthesis and an old healed right inferior pubic ramus fracture. IMPRESSION: There is no evidence of acute intra-abdominal or intrapelvic disease. The suspected small bowel wall thickening seen in the proximal small bowel on the prior exam has a more normal appearance today and the gamez of the transverse duodenum are collapsed as they are normally seen traversing between the abdominal aorta and superior mesenteric artery. This is the usual relationship. Since intravenous contrast was administered and there are no pre-contrast images to review, I cannot acutely comment on whether or not there are renal calculi. There are no definite renal calculi are seen today. There are Bosniak class 1 bilateral renal cysts, status quo. NOTE: This patient does not have a gallbladder. There are no surgical clips in the gallbladder fossa. The appearance of the gallbladder fossa has changed since the patient's CT examination of the chest with images of the upper abdomen including the gallbladder fossa dated 09/01/2016. That examination clearly identified a gallbladder. Electronically Signed by Moris Whitten DO 08/12/2019 04:14 P
[2019-08-08] MEDS: KCL 40MEQ IN D5/NS 1000ML 1,000 ML IV SCH ×2 (09:04→14:00)
[2019-08-08 10:00] LABS: HEPATITIS A ANTIBODY IGM NEGATIVE (NEGATIVE); HEPATITIS B SURFACE ANTIGEN NEGATIVE (NEGATIVE); HEPATITIS C VIRUS ABY INDEX 0.2 INDEX (<0.8)
--- NOTE | 2019-08-08 10:09 | IPNPDOC ---
Subjective Date Seen The patient was seen on 08/08/19. Subjective Chief Complaint/HPI abdominal pain Events since last encounter Admitted for abdominal pain and diarrhea with vomiting. Vomiting and diarrhea have resolved. Planned MRCP today as ordered by admitting hospitalist. + hx of SMA occlusion. 2 attempts by IR were unsuccessful. Started on Cipro and Flagyl IV. Tolerating clear liquids. Continues with epigastric and RUQ abdominal pain. Constitutional: Denies: Chills, Fever, Night Sweats Pulmonary: Denies: Dyspnea, Cough Cardiovascular: Denies: Chest Pain, Palpitations, Orthopnea, Paroxysmal Noc. Dyspnea, Lt Headedness Gastrointestinal: Reports: Nausea, Abdominal Pain; Denies: Vomiting, Diarrhea, Constipation Genitourinary: Denies: Dysuria, Frequency, Incontinence, Retention Psych: Reports: Mood Normal; Denies: Depression, Memory Issues Objective Physical Examination General Exam: Positive: Alert, Cooperative, No Acute Distress Eye Exam: Positive: PERRLA, Conjunctiva & lids normal, EOMI; Negative: Sclera icteric ENT Exam: Positive: Atraumatic, Mucous membr. moist/pink, Pharynx Normal Neck Exam: Positive: Supple; Negative: JVD, thyromegaly Chest Exam: Positive: Clear to auscultation, Normal air movement, Diminished Heart Exam: Positive: Rate Normal, Regular Rhythm, Normal S1, Normal S2; Negative: Murmurs, Rubs Telemetry: Positive: No significant arrhythmia Abdomen Exam: Positive: BS Hypoactive, Soft, Tenderness (in the epigastrium and RUQ); Negative: Hepatospenomegaly Extremity Exam: Negative: Clubbing, Cyanosis, Edema Skin Exam: Positive: Nl turgor and temperature; Negative: Breakdown, Lesion Psych Exam: Positive: Oriented x 3 Assessment /Plan Problems (1) Abdominal pain, vomiting, and diarrhea Status: Acute Problem Text: MRCP planned for today. Continue with Cipro and Flagyl IV. GI panel. (2) Transaminitis Status: Acute Problem Text: improved compared to yesterday. MRCP pending. (3) Occlusion of superior mesenteric artery Status: Chronic Problem Text: failed IR intervention x 2. Will need vascular consult upon DC for outpatient management. (4) Hyperlipemia Status: Chronic (5) HTN (hypertension) Status: Chronic Problem Text: on Amlodipine last admission. BP stable w/o medication. Plan/VTE VTE Prophylaxis Ordered?: Yes VS, I&O, 24H, [facility] Vital Signs/I&O Vital Signs Date Time Temp Pulse Resp B/P (MAP) Pulse Ox O2 Delivery O2 Flow Rate FiO2 08/08/19 06:25 16 08/08/19 05:43 97.8 111 123/79 (94) 91 Room Air 08/07/19 15:45 1.0 I&O- Last 24 Hours up to 6 AM 08/08/19 06:00 Intake Total 1110 ml Output Total 400 ml Balance 710 ml Laboratory Data 24H LABS Laboratory Tests 2 08/07/19 11:37: Immature Granulocyte % (Auto) 0.7, Neutrophils (%) (Auto) 88.4H, Lymphocytes (%) (Auto) 5.5L, Monocytes (%) (Auto) 4.9, Eosinophils (%) (Auto) 0.1, Basophils (%) (Auto) 0.4, Neutrophils # (Auto) 13.4H, Lymphocytes # (Auto) 0.8L, Monocytes # (Auto) 0.7, Eosinophils # (Auto) 0.0, Basophils # (Auto) 0.1, Nucleated Red Blood Cells % (auto) 0.0, Anion Gap 11, Glomerular Filtration Rate > 60.0, Lactic Acid Level 3.0*H, Calcium Level 8.9, Total Bilirubin 0.6, Direct Bilirubin 0.3H, Aspartate Amino Transf (AST/SGOT) 379H, Alanine Aminotransferase (ALT/SGPT) 321H, Alkaline Phosphatase 139H, Total Protein 7.9, Albumin 3.5, Albumin/Globulin Ratio 0.80L, Amylase Level 72, Lipase 151 08/07/19 13:02: Influenza Type A (RT-PCR) NEGATIVE, Influenza Type B (RT-PCR) NEGATIVE 08/07/19 17:25: Lactic Acid Level 3.9*H 08/07/19 20:59: Lactic Acid Level 2.6*H 08/08/19 01:21: Lactic Acid Followup at 4 Hours 1.0 08/08/19 05:28: Immature Granulocyte % (Auto) 0.6, Neutrophils (%) (Auto) 77.3H, Lymphocytes (%) (Auto) 11.3L, Monocytes (%) (Auto) 9.8H, Eosinophils (%) (Auto) 0.5, Basophils (%) (Auto) 0.5, Neutrophils # (Auto) 11.2H, Lymphocytes # (Auto) 1.6, Monocytes # (Auto) 1.4H, Eosinophils # (Auto) 0.1, Basophils # (Auto) 0.1, Nucleated Red Blood Cells % (auto) 0.0, Anion Gap 5L, Glomerular Filtration Rate > 60.0, Calcium Level 8.3L, Total Bilirubin 0.3, Aspartate Amino Transf (AST/SGOT) 154H, Alanine Aminotransferase (ALT/SGPT) 221H, Alkaline Phosphatase 101, Total Protein 6.3#L, Albumin 2.6#L, Albumin/Globulin Ratio 0.70L CBC/BMP Laboratory Tests 08/07/19 11:37 08/08/19 05:28 Lisseth Clark [facility] Aug 08, 2019 10:09
[2019-08-08 14:00] VITALS: BP_SYST 132; BP_SYST 134; BP_DIAS 49; BP_DIAS 74
--- NOTE | 2019-08-08 16:52 | REP ---
MRCP: MRCP exam was accomplished utilizing multiple heavily T2 weighted sequences in the axial and coronal planes. MIP reconstruction images are performed. There is mild intrahepatic biliary dilation. Common bile duct is dilated up to 13 mm. I suspect a calculus at the distal end of the common bile duct, at the ampulla of Vater. This measures about 4 mm in diameter. The pancreatic duct is normal in caliber. There is a cyst in the lower pole of the right kidney which measures 3.9 cm in diameter. No other evidence of mass in the visualized abdomen and no free fluid. IMPRESSION: Findings suspicious for a 4 mm calculus in the distal end of the common bile duct at the ampulla of Vater. There is mild intrahepatic and extrahepatic biliary dilatation, Common bile duct measuring 13 mm in maximum diameter. Patient has had a prior cholecystectomy. No pancreatic duct dilatation. Electronically Signed by Taj Muniz MD 08/08/2019 04:57 P
[2019-08-08 20:09] VITALS: BP 122/63
--- NOTE | 2019-08-08 22:18 | DS.PDOC ---
Discharge Summary General Date of Admission Aug 07, 2019 at 16:23 Date of Discharge August 08 Primary Care Physician: FREDIS HAILE DO Attending Physician: FREDIS HAILE DO Discharge Summary PROCEDURES PERFORMED DURING STAY: [None]. ADMITTING DIAGNOSES: 1. acute on chronic abdominal pain 2. chronic abdominal pain 3. gastritis, hiatal hernia, and aphthous ulcer 4. CAD 5. psoriasis 6. hypertension 7. osteoporosis DISCHARGE DIAGNOSES: 1. stone in common bile duct 2. elevated lactic acid 3. chronic abdominal pain 4. gastritis, hiatal hernia, and aphthous ulce 5. psoriasis 6. hypertension 7. osteoporosis 8. CAD COMPLICATIONS/CHIEF COMPLAINT: Abdominal Pain, Vomiting, And Diarrhea. HISTORY OF PRESENT ILLNESS: 69 year old female present to the ED with 7 days of watery diarrhea, abdominal pain and nausea. She tells me she has had chronic abdominal pain for many years. Then in December this year she had cholecystectomy done after which the pain was a little better but never did go away. Her pain is located in the epigastrium , burning in nature sometimes goes to the right upper quadrant and to the back. It is constant about 8/10 in intensity now a little better after morphine, associated with nausea and diarrhea. He diarrhea has been really bad since yesterday . Its constant watery in nature. No blood seen. She recently in the first week of July had an EGD and angiogram of the abdomen. Angio showed SMA chronic occlusion, and EGD showed patchy mild inflammation characterized by adherent blood, congestion (edema) and aphthous ulcerations was found in the gastric antrum. She was admitted for evaluation of abdominal pain and diarrhea. HOSPITAL COURSE: Patient was started on Cipro and Flagyl, and admitted to med surg. Leukocytosis only mildly improved the next day. Nausea persisted, though vomiting and diarrhea resolved. She continued to have significant epigastric and RUQ abdominal pain. MRCP was performed that afternoon, and she was found to have a stone in her common bile duct. There was no GI hardware installation coordinator, and arr angements were made for the patient to be transferred to [facility], under the care of Dr. Prado. DISCHARGE MEDICATIONS: Please see below. ALLERGIES: Please see below. PHYSICAL EXAMINATION ON DISCHARGE: VITAL SIGNS: Please see below. GENERAL: appears ill and uncomfortable HEENT: mucous membranes moist NECK: supple CARDIOVASCULAR EXAMINATION: regular rate and rhythm RESPIRATORY EXAMINATION: clear to auscultation bilat ABDOMINAL EXAMINATION: tender, especially RUQ and epigastric EXTREMITIES: no edema SKIN: no rash NEUROLOGICAL EXAMINATION: no focal deficit PSYCHIATRIC EXAMINATION: appropriate mood and affect LABORATORY DATA: Please see below. IMAGING: MRCP this afternoon showed a stone in the common bile duct PROGNOSIS: fair ACTIVITY: [As tolerated]. DIET: NPO DISCHARGE PLAN: transfer DISPOSITION: transfer to [facility] DISCHARGE INSTRUCTIONS: 1. call office for hospital followup after discharge ITEMS TO FOLLOWUP ON ON OUTPATIENT: 1. IR or vascular surgery re: chronic SMA ischemia DISCHARGE CONDITION: [Stable]. TIME SPENT ON DISCHARGE: Greater than 30 minutes. Vital Signs/I&Os Vital Signs Date Time Temp Pulse Resp B/P (MAP) Pulse Ox O2 Delivery O2 Flow Rate FiO2 08/08/19 18:37 18 08/08/19 14:00 98.6 88 134/74 (94) 93 Room Air 08/07/19 15:45 1.0 I&O- Last 24 Hours up to 6 AM 08/08/19 06:00 Intake Total 1110 ml Output Total 400 ml Balance 710 ml Laboratory Data Labs 24H Laboratory Tests 2 08/07/19 20:59: Lactic Acid Level 2.6*H 08/08/19 01:21: Lactic Acid Followup at 4 Hours 1.0 08/08/19 05:28: Immature Granulocyte % (Auto) 0.6, Neutrophils (%) (Auto) 77.3H, Lymphocytes (%) (Auto) 11.3L, Monocytes (%) (Auto) 9.8H, Eosinophils (%) (Auto) 0.5, Basophils (%) (Auto) 0.5, Neutrophils # (Auto) 11.2H, Lymphocytes # (Auto) 1.6, Monocytes # (Auto) 1.4H, Eosinophils # (Auto) 0.1, Basophils # (Auto) 0.1, Nucleated Red Blood Cells % (auto) 0.0, Anion Gap 5L, Glomerular Filtration Rate > 60.0, Calcium Level 8.3L, Total Bilirubin 0.3, Aspartate Amino Transf (AST/SGOT) 154H, Alanine Aminotransferase (ALT/SGPT) 221H, Alkaline Phosphatase 101, Total Protein 6.3#L, Albumin 2.6#L, Albumin/Globulin Ratio 0.70L CBC/BMP Laboratory Tests 08/08/19 05:28 Discharge Medications No Active Prescriptions or Reported Meds Allergies Coded Allergies: Penicillins (Verified Allergy, Unknown, hives, 12/13/18) aspirin (Verified Allergy, Unknown, rash, 12/13/18) iron (Verified Allergy, Unknown, flu symptoms, 12/13/18) vancomycin (Verified Allergy, Unknown, rash itching, 12/13/18) FREDIS HAILE DO Aug 08, 2019 21:02
[2019-08-08 23:45] VITALS: BP 118/63
[2019-08-09] MEDS ORDERED: NS 1,000 ML IV SCH
[2019-08-09] MEDS: KCL 40MEQ IN D5/NS 1000ML 1,000 ML IV SCH
== END 2019-08-09 00:15 | disposition short-term general hospital (02) | DRG 445 ==
LOC: M ED 11:18 → EDBD 11:18 → M ED INP 16:23 → M MS5PR 17:03
PROVIDERS: ADMIT Internal Medicine Nephrology; ATTEND Family Medicine
DX: K80.50 Calculus of bile duct without cholangitis or cholecystitis without obstruction (principal); K55.1 Chronic vascular disorders of intestine; E87.2 Acidosis; M81.0 Age-related osteoporosis without current pathological fracture; K44.9 Diaphragmatic hernia without obstruction or gangrene; I25.10 Atherosclerotic heart disease of native coronary artery without angina pectoris; E78.5 Hyperlipidemia, unspecified; L40.9 Psoriasis, unspecified; I10 Essential (primary) hypertension; I73.9 Peripheral vascular disease, unspecified; F32.9 Major depressive disorder, single episode, unspecified; K29.70 Gastritis, unspecified, without bleeding; K12.0 Recurrent oral aphthae; K76.0 Fatty (change of) liver, not elsewhere classified; Z96.641 Presence of right artificial hip joint; Z95.820 Peripheral vascular angioplasty status with implants and grafts; Z86.718 Personal history of other venous thrombosis and embolism; Z88.0 Allergy status to penicillin; Z88.6 Allergy status to analgesic agent; Z88.1 Allergy status to other antibiotic agents; Z88.8 Allergy status to other drugs, medicaments and biological substances; Z87.891 Personal history of nicotine dependence

== ENCOUNTER 2019-09-09 21:52 | Emergency (ER) | payer MEDICARE, MEDICAID ==
[~2019-09-09] VITALS: Ht 157.5 cm; Wt 57.7 kg
[~2019-09-09 21:52] MED LIST changes: +NYST10CR TOP
[2019-09-09 22:03] VITALS: BP 141/86
[2019-09-09] MEDS ORDERED: FAMO1TAB11 (22:09)
[2019-09-09] MEDS ORDERED: ATOR1TAB21 (22:09)
[2019-09-09] MEDS ORDERED: PANT40TA3 (22:09)
[2019-09-09] MEDS ORDERED: METO1TAB87 (22:09)
[2019-09-09 22:11] LABS: BASO # 0.1 10^3/uL (0.0-0.2); BASO % 0.5 % (0.0-1.0); EOS # 0.1 10^3/uL (0.0-0.5); EOS % 0.4 % (0.0-3.0); HEMATOCRIT 43.4 % (36.0-47.0); HEMOGLOBIN 14.4 g/dl (12.0-15.5); LYMPH # 1.9 10^3/uL (1.5-5.0); LYMPH % 12.6 % (24.0-44.0); MEAN CORPUSCULAR HEMOGLOBIN 32.2 pg (27.0-33.0); MEAN CORPUSCULAR HGB CONC 33.2 g/dl (32.0-36.5); MEAN CORPUSCULAR VOLUME 97.1 fl (80.0-96.0); MONO # 1.1 10^3/uL (0.0-0.8); MONO % 7.5 % (0.0-5.0); NEUTROPHILS # 11.6 10^3/uL (1.5-8.5); NEUTROPHILS % 78.5 % (36.0-66.0); PLATELET COUNT, AUTOMATED 350 10^3/uL (150-450); RED BLOOD COUNT 4.47 10^6/uL (4.00-5.40); WHITE BLOOD COUNT 14.8 10^3/uL (4.0-10.0)
[2019-09-09] MEDS ORDERED: ONDANSETRON 4MG/2ML VIAL (J2405) IV ONE (22:30)
[2019-09-09] MEDS ORDERED: MORPHINE 4 MG/ML 1ML VIAL/SYRINGE (J2270) IV ONE (22:30)
[2019-09-09] MEDS ORDERED: NS 500 ML IV ONE (22:30)
[2019-09-09 22:49] LABS: ALBUMIN 3.4 GM/DL (3.2-5.2); ALT/SGPT 17 U/L (12-78); BILIRUBIN,DIRECT 0.2 MG/DL (0.0-0.2); BILIRUBIN,TOTAL 0.4 MG/DL (0.2-1.0); BLOOD UREA NITROGEN 12 MG/DL (7-18); CALCIUM LEVEL 9.3 MG/DL (8.8-10.2); CARBON DIOXIDE LEVEL 28 MEQ/L (21-32); CHLORIDE LEVEL 102 MEQ/L (98-107); CK-MB VALUE MASS < 1.0 NG/ML (<3.6); CPK CREATINE PHOSPHOKINASE 15 U/L (26-192); CREATININE FOR GFR 0.64 MG/DL (0.55-1.30); GLOMERULAR FILTRATION RATE > 60.0 (>45); GLUCOSE, FASTING 116 MG/DL (70-100); LIPASE 334 U/L (73-393); MB/CK RELATIVE INDEX 6.67 (< OR =4); POTASSIUM SERUM 3.3 MEQ/L (3.5-5.1); SODIUM LEVEL 139 MEQ/L (136-145); TOTAL PROTEIN 7.2 GM/DL (6.4-8.2); TROPONIN I < 0.02 NG/ML (< 0.10)
[2019-09-09] MEDS ORDERED: KCL 10MEQ/100ML SWI (KRUN) 10 MEQ in IV 1 EA IV ONE (23:15)
[2019-09-09] MEDS ORDERED: ISOVUE-370 76% 100ML VIAL (Q9967) As Ordered ONE (23:38)
--- NOTE | 2019-09-10 00:33 | REPVR ---
PROCEDURE INFORMATION: Exam: CT Angiography Abdomen and Pelvis With Contrast Exam date and time: 09/09/2019 11:21 PM Age: 69 years old Clinical indication: Abdominal pain; Other: Worse pain; Additional info: HX of mesenteric ischemia, worsening abdominal pain TECHNIQUE: Imaging protocol: Computed tomographic angiography of the abdomen and pelvis with intravenous contrast material. 3D rendering: MIP and/or 3D reconstructed images were created by the technologist. Radiation optimization: All CT scans at this facility use at least one of these dose optimization techniques: automated exposure control; mA and/or kV adjustment per patient size (includes targeted exams where dose is matched to clinical indication); or iterative reconstruction. Contrast material: ISO; Contrast volume: 100 ml; Contrast route: AC; COMPARISON: CT ABD/PEL W/IV CONTRAST ONLY 08/07/2019 1:53 PM FINDINGS: Lungs: Minimal bibasilar fibro-atelectatic change. Aorta: There is moderate atherosclerotic calcification of the abdominal aorta with extension into the iliac arteries. 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 Distal branches are within normal limits. Occlusion of the proximal SMA with reconstitution approximately 2.5 cm from the origin which is similar to the prior study and may be through pancreaticoduodenal arcade. The DEON is small but patent and may have origin stenosis. Renal arteries: Single patent bilateral renal arteries with probable origin stenoses with heavy atherosclerotic plaque on the right. Right iliac arteries: No occlusion or significant stenosis. Left iliac arteries: Left iliac artery stents. Liver: The liver attenuation is 61 Hounsfield units and the spleen is 79 Hounsfield units. Gallbladder and bile ducts: Endoscopic biliary stent in position with minimal pneumobilia. Pancreas: Unremarkable. No mass. No ductal dilation. Spleen: Unremarkable. No splenomegaly. Adrenals: Unremarkable. No mass. Kidneys and ureters: There are bilateral renal cysts measuring up to 3.6 cm on the right. Stomach and bowel: Borderline distention of the stomach with fluid and gas. Slight wall thickening of the colon suggesting minimal nonspecific pancolitis. No small bowel dilatation is noted. Appendix: A normal appendix is seen. Intraperitoneal space: Unremarkable. No free air. No significant fluid collection. Lymph nodes: Unremarkable. No enlarged lymph nodes. Bladder: Unremarkable. No mass. Reproductive: Status post hysterectomy. Bones/joints: Degenerative changes of the lumbar spine with facet arthropathy and mild anterolisthesis of L4 relative to L5 and diffuse compression of T12 and L1 and superior endplate depressions of T11, T12, L2 and L3 which appear to be chronic. Right hip hemiprosthesis in position with beam hardening artifact. Residua of prior threaded pin in the left proximal femur. Soft tissues: Unremarkable. IMPRESSION: 1. Interval placement of endoscopic biliary stent with minimal pneumobilia since 08/07/2019. There has otherwise been little change. 2. There is borderline gastric distention with fluid and gas which is similar to the prior study and may reflect recent ingestion. Gastric atony or relative outlet obstruction are not excluded. 3. Status post hysterectomy. 4. 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 There is likely at least mild origin stenosis of the DEON which is small. 5. Origin occlusion of the SMA with reconstitution approximately 2.5 cm from the origin. The appearance is similar to the prior study and would certainly predispose to mesenteric angina or ischemia. Electronically signed by: Black Carey On 09/10/2019 00:33:20 AM
[2019-09-10] MEDS ORDERED: KETOROLAC 30 MG/ML VIAL (J1885) IV ONE (01:00)
[2019-09-10] MEDS ORDERED: OXYC1TAB23 PO (01:38)
[2019-09-10] MEDS ORDERED: OXYCODONE/APAP 5MG/325MG(BULK FOR ED) 1 TABLET PO ONE (01:45)
--- NOTE | 2019-09-10 06:29 | ECGEPIP ---
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
--- NOTE | 2019-09-10 06:30 | ECGEPIP ---
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
--- NOTE | 2019-09-10 09:27 | REP ---
AP PORTABLE CHEST: 09/09/2019. Comparison: 08/07/2019. Clinical history: Epigastric abdominal pain, tachycardia. Findings. Lungs are well inflated. There is some basilar fibroatelectatic change, stable. No effusion, acute infiltrate, pneumothorax, atelectasis or mass. Heart not enlarged. The aorta shows calcifications at the arch, but is unchanged. Pulmonary arteries are prominent centrally suggesting pulmonary artery hypertension. Airway intact. Chronic changes of the left shoulder are stable. No free air under the diaphragm. Impression: 1. COPD and some basilar fibrotic change with pulmonary artery hypertension. 2. No cardiomegaly, edema, effusion or acute infiltrate. Electronically Signed by Calixto Staton MD 09/10/2019 07:52 P
--- NOTE | 2019-09-10 09:35 | REP ---
AP PORTABLE ABDOMEN: 09/09/2019. Clinical history: Epigastric abdominal pain, tachycardia. History of pneumobilia. Recent placement biliary stent. Comparison CT abdomen and pelvis 08/07/2019. Indwelling biliary stent in the right upper quadrant noted. There is also arterial vascular stent from the proximal left common iliac through the distal external iliac artery. Heavy vascular calcifications in the iliac and femoral arteries down into the thigh. Gas pattern is nonspecific. The patient has had a right hip arthroplasty. Bones severely demineralized. Degenerative changes of the left hip. No gross obstruction or free air. Impression: 1. Left iliac stents and a biliary stent in the right upper quadrant. 2. Nonspecific gas pattern without obstruction or evidence of mass. 3. Prior right hip arthroplasty and diffuse osteoporotic and degenerative changes. Electronically Signed by Calixto Staton MD 09/10/2019 07:52 P
== END 2019-09-10 02:25 | disposition home or self-care (01) ==
LOC: M ED 21:52
DX: R10.9 Unspecified abdominal pain (principal); R94.31 Abnormal electrocardiogram [ECG] [EKG]; R00.0 Tachycardia, unspecified; I25.10 Atherosclerotic heart disease of native coronary artery without angina pectoris; I10 Essential (primary) hypertension; E78.5 Hyperlipidemia, unspecified; K55.069 Acute infarction of intestine, part and extent unspecified; K76.0 Fatty (change of) liver, not elsewhere classified; K55.1 Chronic vascular disorders of intestine; Z86.718 Personal history of other venous thrombosis and embolism; Z87.891 Personal history of nicotine dependence; Z95.820 Peripheral vascular angioplasty status with implants and grafts; Z96.89 Presence of other specified functional implants; I27.0 Primary pulmonary hypertension; J44.9 Chronic obstructive pulmonary disease, unspecified; Z96.641 Presence of right artificial hip joint; M81.0 Age-related osteoporosis without current pathological fracture; M16.11 Unilateral primary osteoarthritis, right hip; Z79.899 Other long term (current) drug therapy; Z88.0 Allergy status to penicillin; Z88.8 Allergy status to other drugs, medicaments and biological substances
CPT/HCPCS: 71045; 74018; 74174; 80048; 80076; 81001; 82550; 82553; 83605; 83690; 84484; 85025; 93005; 93041; 96365; 96374; 96375; 99285; J1885; J2270; J2405; Q9967

== ENCOUNTER 2019-09-19 19:55 | Inpatient (IN) | payer MEDICARE, MEDICAID ==
[~2019-09-19] VITALS: Ht 157.5 cm; Wt 54.7 kg
[~2019-09-19 19:55] MED LIST changes: +ATOR1TAB21; +FAMO1TAB11; +METO1TAB87; +PANT40TA3
[2019-09-19] MEDS ORDERED: NS 1,000 ML IV SCH (20:29)
[2019-09-19] MEDS ORDERED: ONDANSETRON 4MG/2ML VIAL (J2405) IV ONE (20:30)
[2019-09-19] MEDS ORDERED: MORPHINE 4 MG/ML 1ML VIAL/SYRINGE (J2270) IV ONE ×3 (20:30→23:00)
[2019-09-19 21:11] LABS: BASO # 0.1 10^3/uL (0.0-0.2); BASO % 0.3 % (0.0-1.0); EOS % 0.1 % (0.0-3.0); HEMATOCRIT 43.3 % (36.0-47.0); HEMOGLOBIN 15.3 g/dl (12.0-15.5); LYMPH # 0.8 10^3/uL (1.5-5.0); LYMPH % 3.3 % (24.0-44.0); MEAN CORPUSCULAR HGB CONC 35.3 g/dl (32.0-36.5); MEAN CORPUSCULAR VOLUME 93.3 fl (80.0-96.0); MONO # 1.5 10^3/uL (0.0-0.8); NEUTROPHILS # 22.8 10^3/uL (1.5-8.5); NEUTROPHILS % 89.3 % (36.0-66.0); PLATELET COUNT, AUTOMATED 366 10^3/uL (150-450); RED BLOOD COUNT 4.64 10^6/uL (4.00-5.40); WHITE BLOOD COUNT 25.5 10^3/uL (4.0-10.0)
[2019-09-19 21:36] LABS: ALBUMIN 3.3 GM/DL (3.2-5.2); ALT/SGPT 19 U/L (12-78); BILIRUBIN,DIRECT 0.2 MG/DL (0.0-0.2); BILIRUBIN,TOTAL 0.6 MG/DL (0.2-1.0); BLOOD UREA NITROGEN 11 MG/DL (7-18); CARBON DIOXIDE LEVEL 26 MEQ/L (21-32); CHLORIDE LEVEL 100 MEQ/L (98-107); CK-MB VALUE MASS < 1.0 NG/ML (<3.6); CPK CREATINE PHOSPHOKINASE 20 U/L (26-192); CREATININE FOR GFR 0.77 MG/DL (0.55-1.30); GLOMERULAR FILTRATION RATE > 60.0 (>45); GLUCOSE, FASTING 144 MG/DL (70-100); LIPASE 55 U/L (73-393); SODIUM LEVEL 139 MEQ/L (136-145); TOTAL PROTEIN 7.2 GM/DL (6.4-8.2); TROPONIN I < 0.02 NG/ML (< 0.10)
[2019-09-19] MEDS ORDERED: POTASSIUM CHLORIDE 10 MEQ SR TABLET PO ONE (21:45)
[2019-09-19] MEDS ORDERED: PROMETHAZINE INJ 25 MG/ML VIAL (J2550) IV ONE ×2 (21:45→23:45)
[2019-09-19] MEDS: GASTROGRAFIN SOLUTION 30ML PO SCH ×2 (22:16)
[2019-09-20] MEDS ORDERED: ISOVUE-370 76% 100ML VIAL (Q9967) As Ordered ONE (00:22)
--- NOTE | 2019-09-20 01:02 | REPVR ---
PROCEDURE INFORMATION: Exam: CT Abdomen And Pelvis With Contrast Exam date and time: 09/19/2019 8:53 PM Age: 69 years old Clinical indication: Abdominal pain; Epigastric; Additional info: Epigastric pain TECHNIQUE: Imaging protocol: Computed tomography of the abdomen and pelvis with intravenous contrast. Radiation optimization: All CT scans at this facility use at least one of these dose optimization techniques: automated exposure control; mA and/or kV adjustment per patient size (includes targeted exams where dose is matched to clinical indication); or iterative reconstruction. Contrast material: ISO; Contrast volume: 100 ml; Contrast route: AC; COMPARISON: CT ABD/PEL W/IV CONTRAST ONLY 08/07/2019 1:53 PM FINDINGS: Lungs: Reticular linear changes at the lung bases suggest scarring or fibrosis. No basilar infiltrate or mass. Liver: Liver appears normal with no focal abnormality. Gallbladder and bile ducts: Pneumobilia is present consistent with a prior sphincterotomy. Biliary stent device is present extending into the duodenum. Pancreas: Pancreas appears normal. No focal mass or peripancreatic inflammation. Spleen: Spleen appears homogeneous without focal mass. Adrenals: Adrenal glands are normal in appearance. Kidneys and ureters: Kidneys are unremarkable aside from bilateral simple fluid density cysts, 15 mm left and 4 cm right. These require no follow-up. Stomach and bowel: No concerning asymmetry or abnormality at the GE junction. No evidence of small bowel obstruction. No evidence of acute diverticulitis. Appendix: Appendix is not seen. No RLQ inflammation to suggest appendicitis. Intraperitoneal space: No pneumoperitoneum. Vasculature: Atherosclerotic change present in the aorta, without aneurysm. Left iliac arterial stent device is present with no occlusion. Lymph nodes: No enlarged lymph nodes. Bladder: Urinary bladder is distended. Reproductive: Uterus is surgically absent. Bones/joints: Prior fixation hardware defect in the left femur. Right hip ME arthroplasty. Old right obturator ring fractures. Lumbar spine degenerative disc and facet changes. Soft tissues: Unremarkable. IMPRESSION: 1. No acute surgical or inflammatory intra-abdominal or pelvic process. 2. No explanation for GE junction symptoms. 3. Biliary stent present with pneumobilia and no obvious complication. 4. Urinary bladder distention which may simply be voluntary. Electronically signed by: Mahin Pavon On 09/20/2019 01:02:14 AM
[2019-09-20 02:54] LABS: APPEARANCE, URINE CLEAR (CLEAR); BACTERIA, URINE AUTO NEGATIVE (NEGATIVE); BILIRUBIN, URINE AUTO NEGATIVE (NEGATIVE); BLOOD, URINE BLOOD 1+ (NEGATIVE); COLOR, URINE YELLOW (YELLOW); GLUCOSE, URINE (UA) AUTO NEGATIVE (NEGATIVE); KETONE, URINE AUTO TRACE mg/dL (NEGATIVE); LEUKOCYTE ESTERASE, URINE AUTO NEGATIVE (NEGATIVE); MUCUS, URINE SMALL (NEGATIVE); NITRITE, URINE AUTO NEGATIVE (NEGATIVE); PROTEIN, URINE AUTO NEGATIVE (NEGATIVE); RBC, URINE AUTO 1 /HPF (0-3); SQUAMOUS EPITHELIAL CELL UR AU 7 /HPF (0-6); UROBILINOGEN, URINE AUTO 0.2 mg/dL (0.0-2.0); WBC, URINE AUTO 2 /HPF (0-3)
[2019-09-20 03:32] LABS: SPECIFIC GRAVITY URINE AUTO >1.060 (1.002-1.035)
[2019-09-20] MEDS ORDERED: ACET-897 PO (04:17)
[2019-09-20] MEDS ORDERED: ATOR1TAB21 PO (04:17)
[2019-09-20] MEDS ORDERED: PANT-23 PO (04:17)
[2019-09-20] MEDS ORDERED: FAMO20TA PO (04:17)
[2019-09-20 05:30] VITALS: BP 188/100
--- NOTE | 2019-09-20 05:33 | IPNPDOC ---
Text Note Date of Service The patient was seen on 09/20/19. NOTE TIME OF SERVICE 430AM is a 69 yr old F w a PMH of chronic mesenteric ischemia was SMA occlusion, hypertension, hiatal hernia, chronic CAD, dyslipidemia, psoriasis, PV D status post stent and aortofemoral bypass, osteoporosis with multiple vertebral fractures, remote history of DVT, hepatic steatosis, and depression who is admitted for management of acute abdominal pain likely due to gastroenteritis vs worsening of her mesenteric ischemia. 1. Sepsis possibly due to gastritis - sepsis order set, IV fluids, antibiotics, follow-up repeat lactic acid 2. Abdominal pain likely due to worsening mesenteric ischemia - Plan: Follow up with surgical services manager Respiratory Dr. Domínguez H&P VS,Nery, I+O VS, Nery, I+O Laboratory Tests 09/19/19 20:56 Vital Signs Date Time Temp Pulse Resp B/P (MAP) Pulse Ox O2 Delivery O2 Flow Rate FiO2 09/20/19 05:21 97.1 129 16 156/90 (112) 91 Room Air I&O- Last 24 Hours up to 6 AM 09/20/19 06:00 Intake Total 1000 ml Balance 1000 ml SAURABH KING MD Sep 20, 2019 05:33
[2019-09-20] MEDS ORDERED: SODIUM CHLORIDE 0.9% 1000ML IV STA (05:40)
[2019-09-20] MEDS ORDERED: NS 1,000 ML IV SCH (05:45)
[2019-09-20] MEDS ORDERED: MAALOX 30 ML SUSP *UDC PO PRN (06:00)
[2019-09-20] MEDS ORDERED: ACETAMINOPHEN TAB 650MG DOSE (2X325MG) PO PRN (06:00)
[2019-09-20] MEDS ORDERED: MOM 30ML SUSPENSION UDC PO PRN (06:00)
[2019-09-20 06:04] LABS: BASO # 0.1 10^3/uL (0.0-0.2); BASO % 0.2 % (0.0-1.0); HEMATOCRIT 44.6 % (36.0-47.0); HEMOGLOBIN 14.8 g/dl (12.0-15.5); LYMPH # 1.1 10^3/uL (1.5-5.0); LYMPH % 3.6 % (24.0-44.0); MEAN CORPUSCULAR HGB CONC 33.2 g/dl (32.0-36.5); MEAN CORPUSCULAR VOLUME 96.3 fl (80.0-96.0); MONO # 1.8 10^3/uL (0.0-0.8); MONO % 6.2 % (0.0-5.0); NEUTROPHILS % 88.8 % (36.0-66.0); PLATELET COUNT, AUTOMATED 319 10^3/uL (150-450); RED BLOOD COUNT 4.63 10^6/uL (4.00-5.40); WHITE BLOOD COUNT 29.4 10^3/uL (4.0-10.0)
[2019-09-20] MEDS: ONDANSETRON 4MG/2ML VIAL (J2405) IV PRN ×2 (06:06→12:04)
[2019-09-20] MEDS: MORPHINE 2 MG/ML 1ML VIAL (J2270) IV PRN ×5 (06:07→22:08)
[2019-09-20 06:19] LABS: ABG BASE EXCESS 1.9 (-2.0-2.0); ABG HCO3 25.9 MEQ/L (22.0-26.0); ABG O2 SATURATION 93.1 % (95.0-99.0); ABG PARTIAL PRESSURE CO2 38.4 mmHg (35.0-45.0); ABG PARTIAL PRESSURE O2 64.8 mmHg (75.0-100.0); ABG pH (ARTERIAL) 7.446 UNITS (7.350-7.450)
[2019-09-20 06:24] LABS: NEUTROPHILS # 26.1 10^3/uL (1.5-8.5)
[2019-09-20 06:25] LABS: ALBUMIN 3.2 GM/DL (3.2-5.2); ALT/SGPT 27 U/L (12-78); BILIRUBIN,TOTAL 0.5 MG/DL (0.2-1.0); BLOOD UREA NITROGEN 9 MG/DL (7-18); CALCIUM LEVEL 9.2 MG/DL (8.8-10.2); CARBON DIOXIDE LEVEL 28 MEQ/L (21-32); CHLORIDE LEVEL 100 MEQ/L (98-107); CREATININE FOR GFR 0.67 MG/DL (0.55-1.30); GLOMERULAR FILTRATION RATE > 60.0 (>45); GLUCOSE, FASTING 146 MG/DL (70-100); MAGNESIUM LEVEL 1.6 MG/DL (1.8-2.4); POTASSIUM SERUM 3.1 MEQ/L (3.5-5.1); SODIUM LEVEL 138 MEQ/L (136-145); TOTAL PROTEIN 6.9 GM/DL (6.4-8.2)
--- NOTE | 2019-09-20 07:46 | HPEPDOC ---
[facility] Medical History & Physical Date of Admission Sep 20, 2019 Date of Service: Sep 20, 2019 Primary Care Physician: FREDIS HAILE DO Attending Physician: SAURABH KING MD History and Physical CHIEF COMPLAINT: Abdominal pain HISTORY OF PRESENT ILLNESS: is a 69-year-old female with past history of chronic mesenteric ischemia and abdominal pain 2/2 SMA occlusion with stent placement, PVD s/p stent placement and aortofemoral bypass graft, CAD, dyslipidemia, history of DVT 2014/2015 formerly on Coumadin, who presented to the ED with severe abdominal pain, nausea and vomiting. Patient describes the pain as 9/10, continuous throbbing and aching with occasional spasms radiating to the sides. She specifically states it is as if "someone is reaching in and twisting up all of [her] stomach." The pain is localized to the epigastrium and has been present for a year, but got acutely worse on Thursday night (09/18). Patient reports opioid pain medications, both at home and here in the ED, have helped to bring the pain down somewhat to 5 or 6/10. Patient reports vomiting between 1012 times from Thursday night (2) to Thursday night (2/) with both liquids and solids. Her last episode of emesis was around 9 or 10 PM on Thursday night. She denies any hematemesis or coffee ground emesis. She has accompanying decreased appetite as well as diarrhea. Both the diarrhea and decreased appetite have been present for the last year, but the diarrhea became worse on Thursday resulting in approximately 7 episodes described as "partly watery." Patient denies recent illness other than chronic aforementioned symptoms, recent medication changes, recent extensive travel, or sick contacts. As far as recent diet, she has been eating less secondary to her diminished appetite and en dorses a 30 pound unintentional weight loss over the past year. In the ED, patient was found to be tachycardic with leukocytosis, hypokalemia, elevated lactate (2.4), and elevated alkaline phosphatase. CT abdomen/pelvis showed no acute surgical inflammatory intra-abdominal or pelvic process with no expiration for GE junction symptoms. Patient received 40 mEq KCl, a liter of normal saline running at 1 50 mL per hour, morphine, Zofran and Phenergan. REVIEW OF SYSTEMS: CONSTITUTIONAL: Endorses unintentional weight loss of 30 pounds in the past year; denies fever, chills, night sweats HEENT: Denies vision or hearing issues, rhinorrhea, sore throat CARDIOVASCULAR: Denies chest pain, chest pressure, or palpitations RESPIRATORY: Endorses sporadic productive cough (clear sputum); Denies shortness of breath GASTROINTESTINAL: Endorses chronic nausea, vomiting, and abdominal pain; denies dysphagia or odynophagia GENITOURINARY: Denies dysuria or hematuria NEUROLOGICAL: Denies headache, dizziness, syncope PAST MEDICAL SURGICAL HISTORY: DNR with trial intubation. SMA occlusion with chronic mesenteric ischemia and chronic abdominal pain PVD, s/p stents and aortofemoral bypass graft Chronic hypertension Chronic CAD Dyslipidemia Osteoporosis, w/ h/o T11-12, L1-2, and L3-4 compression fractures History of DVT in , previously took Coumadin Hepatic steatosis Psoriasis Depression Laparoscopic cholecystectomy, December 2018 Status post ERCP with 2 stents in SMA Bilateral total knee arthroplasties 2 sections Status post hysterectomy SOCIAL HISTORY: , with one living adult child Currently vapes 1-2 times per day; former smoker, smoked 1 ppd cigarettes for 40 years She denies alcohol or illegal drug use FAMILY HISTORY: Mother (unspecified gastrointestinal issues) Daughter ( 2ya, uterine cancer) ALLERGIES: Please see below. HOME MEDICATIONS: Please see below. PHYSICAL EXAMINATION: VITAL SIGNS: Please see below GENERAL APPEARANCE: female who appears to be in moderate discomfort, lying on her right side in bed. Alert and oriented 3. In no apparent acute distress. HEENT: Normocephalic, atraumatic. Anicteric and noninjected sclera. PERRLA. No p haryngeal erythema or exudate. Upper and lower dentures in place. Trachea midline. No cervical or supraclavicular lymphadenopathy appreciated. CARDIOVASCULAR: Tachycardic rate and regular rhythm. S1, S2 auscultated. No murmurs or rubs appreciated. Adequate capillary refill. LUNGS: Clear to auscultation bilaterally with no wheezes, rhonchi, or crackles appreciated. Mildly diminished tidal volume with symmetric chest expansion. No accessory muscle use with respirations. Breathing on room air and speaking in full senses. ABDOMEN: Soft, nondistended. Diffusely tender throughout the abdomen with the exception of the left lower quadrant. Localized voluntary guarding. No splenomegaly or hepatomegaly appreciated. Hypoactive bowel sounds. No tympany to percussion. EXTREMITIES: 2+ radial and posterior tibial pulses bilaterally. Thin upper and lower extremities. No lower extremity edema, clubbing or cyanosis. NEUROLOGICAL: Awake, alert and oriented 3. No focal neurological deficits appreciated. Respond properly to questions and commands. PSYCHIATRIC: Mood and affect appear appropriate. LABORATORY DATA: Please see below. IMAGING: CT abdomen/pelvis with IV and oral contrast, 09/19/19: 1. No acute surgical or inflammatory intra-abdominal or pelvic process. 2. No explanation for GE junction symptoms. 3. Biliary stent present with pneumobilia and no obvious complication. 4. Urinary bladder distention which may simply be voluntary. MICROBIOLOGY: Please see below. ASSESSMENT & PLAN: Patient 69-year-old female with history of chronic abdominal pain and mesenteric ischemia secondary to SMA occlusion, CAD, and PVD with stent placement and aortofemoral bypass graft who was admitted with positive sirs criteria and severe abdominal pain. #Sepsis/positive sirs criteria -WBC 25.5, heart rate 128, initial lactate 2.4+ likely GI source -Patient received 1 L of normal saline from ED at 1 50 mL per hour -700 mL bolus normal saline ordered -2 blood cultures ordered -ABG ordered -Repeat lactate ordered -Empiric metronidazole started (patient has allergy to penicillin in the form of boils/hives) -Patient placed on telemetry with history of CAD and current tachycardia #Acute on chronic mesenteric ischemia -History of SMA occlusion with stent placement -CT abdomen and pelvis with IV and oral contrast showed no acute surgical, inflammatory, or pelvic processes with no expiration for GE junction symptoms. -NPO diet except meds -IV fluids running (1 L in ED with 700 mL bolus subsequently ordered) -IV morphine for pain -Elevated alkaline phosphatase (151) likely secondary to possible infection and potential for benign elevation that is common in elderly females -Continue with patient's home atorvastatin as arterial ischemia can be seen elsewhere and patient has history of CAD and PVD #Hypokalemia -Initial sK+ 3.0 -received 40 mEq PO in ED -Repeat BMP ordered for the morning -Magnesium level ordered for the morning #History of PVD, CAD, and Dyslipidemia s/p aortofemoral bypass graft -Continue with home atorvastatin #DVT prophylaxis: Lovenox sc DISPOSITION: home after than 2 midnights' stay Pending response to IV fluids and symptom improvement. Vital Signs Vital Signs Date Time Temp Pulse Resp B/P (MAP) Pulse Ox O2 Delivery O2 Flow Rate FiO2 09/20/19 06:07 16 Room Air 09/20/19 05:30 97.6 127 188/100 (129) 95 Laboratory Data Labs 24H Laboratory Tests 2 09/19/19 20:56: Immature Granulocyte % (Auto) 1.0, Neutrophils (%) (Auto) 89.3H, Lymphocytes (%) (Auto) 3.3L, Monocytes (%) (Auto) 6.0H, Eosinophils (%) (Auto) 0.1, Basophils (%) (Auto) 0.3, Neutrophils # (Auto) 22.8H, Lymphocytes # (Auto) 0.8L, Monocytes # (Auto) 1.5H, Eosinophils # (Auto) 0.0, Basophils # (Auto) 0.1, Nucleated Red Blood Cells % (auto) 0.0, Anion Gap 13, Glomerular Filtration Rate > 60.0, Lactic Acid Level 2.4*H, Calcium Level 9.0, Total Bilirubin 0.6, Direct Bilirubin 0.2, Aspartate Amino Transf (AST/SGOT) 24, Alanine Aminotransferase (ALT/SGPT) 19, Alkaline Phosphatase 151H, Total Creatine Kinase 20L, Creatine Kinase MB < 1.0, Creatine Kinase MB Relative Index 5.00H, Troponin I < 0.02, Total Protein 7.2, Albumin 3.3, Albumin/Globulin Ratio 0.85L, Lipase 55L 09/20/19 02:40: Urine Color YELLOW, Urine Appearance CLEAR, Urine pH 6.0, Urine Specific Nelson >1.060H, Urine Protein NEGATIVE, Urine Glucose (Auto)(UA) NEGATIVE, Urine Ketones (Auto) TRACEH, Urine Blood 1+H, Urine Nitrite NEGATIVE, Urine Bilirubin NEGATIVE, Urine Urobilinogen 0.2, Urine Leukocyte Esterase (Auto) NEGATIVE, Urine WBC (Auto) 2, Urine RBC (Auto) 1, Urine Hyaline Casts (Auto) 0, Urine Bacteria (Auto) NEGATIVE, Urine Squamous Epithelial Cells 7, Urine Mucus (Auto) SMALL, Urine Sperm (Auto) 09/20/19 05:49: Anion Gap 10, Glomerular Filtration Rate > 60.0, Lactic Acid Level 2.8*H, Calcium Level 9.2, Total Bilirubin 0.5, Aspartate Amino Transf (AST/SGOT) 43H, Alanine Aminotransferase (ALT/SGPT) 27, Alkaline Phosphatase 139H, Total Protein 6.9, Albumin 3.2, Albumin/Globulin Ratio 0.86L, Magnesium Level 1.6L 09/20/19 05:50: Immature Granulocyte % (Auto) 1.2, Neutrophils (%) (Auto) 88.8H, Lymphocytes (%) (Auto) 3.6L, Monocytes (%) (Auto) 6.2H, Eosinophils (%) (Auto) 0.0, Basophils (%) (Auto) 0.2, Neutrophils # (Auto) 26.1H, Lymphocytes # (Auto) 1.1L, Monocytes # (Auto) 1.8H, Eosinophils # (Auto) 0.0, Basophils # (Auto) 0.1, Nucleated Red Blood Cells % (auto) 0.0 09/20/19 06:15: Blood Gas Bicarbonate Standard 26.0, Arterial Blood pH 7.446, Arterial Blood Partial Pressure CO2 38.4, Arterial Blood Partial Pressure O2 64.8L, Arterial Blood Total CO2 27.0, Arterial Blood HCO3 25.9, Arterial Blood Base Excess 1.9, Arterial Blood Oxygen Saturation 93.1L CBC/BMP Laboratory Tests 09/19/19 20:56 09/20/19 05:49 09/20/19 05:50 Microbiology Microbiology 09/20/19 Blood Culture, Received Pending 09/20/19 Urine Culture, Received Pending Home Medications Scheduled Atorvastatin Calcium (Atorvastatin Calcium) 20 Mg Tablet, 20 MG PO DAILY Famotidine (Famotidine) 20 Mg Tablet, 20 MG PO DAILY Pantoprazole Sodium (Pantoprazole Sodium) 40 Mg Tablet.dr, 40 MG PO DAILY Scheduled PRN Acetaminophen (Tylenol Extra Strength) 500 Mg Tablet, 1,000 MG PO Q6H PRN for PAIN / FEVER Allergies Coded Allergies: Penicillins (Verified Allergy, Intermediate, hives, 09/19/19) aspirin (Verified Allergy, Mild, rash, 09/19/19) vancomycin (Verified Allergy, Mild, rash itching, 09/19/19) iron (Verified Adverse Reaction, Mild, flu symptoms, 09/19/19) A-FIB/CHADSVASC A-FIB History Current/History of A-Fib/PAF?: No Current PO Anticoag Therapy: No (subcutaneous Lovenox ordered for DVT prophylaxis) GME ATTESTATION GME ATTESTATION My faculty preceptor for this patient encounter was physically present during the encounter and was fully available. All aspects of the patient interview, examination, medical decision making process, and medical care plan development were reviewed and approved by the faculty preceptor. The faculty preceptor is aware and concurs with the plan as stated in the body of this note and will attest to such by his/her cosignature. ATTENDING NOTE Reviewed and edited to the note and agree with the findings as documented SMOOTH EDOUARD D.O. Sep 20, 2019 07:46 SAURABH KING MD Sep 21, 2019 03:43
[2019-09-20 08:00] VITALS: BP 190/105
--- NOTE | 2019-09-20 08:27 | IPNPDOC ---
Subjective Date Seen The patient was seen on 09/20/19. Subjective Chief Complaint/HPI gastroenteritis, abdominal pain Events since last encounter Admitted for abdominal pain, gastroenteritis, vomiting, hypokalemia. BP has been elevated overnight. Patient states she is still nauseated. denies diarrhea. Had stopped anti-hypertensives with PCP. Constitutional: Reports: Fatigue, Lethargy; Denies: Chills, Fever, Night Sweats ENT: Denies: Head Aches, Ear Pain, Dysphagia Pulmonary: Denies: Dyspnea, Cough Cardiovascular: Denies: Chest Pain, Palpitations, Orthopnea, Paroxysmal Noc. Dyspnea, Lt Headedness Gastrointestinal: Reports: Nausea, Vomiting, Abdominal Pain; Denies: Diarrhea, Constipation Psych: Reports: Mood Normal; Denies: Depression, Memory Issues Objective Physical Examination General Exam: Positive: Alert, No Acute Distress Eye Exam: Positive: PERRLA, Conjunctiva & lids normal, EOMI; Negative: Sclera icteric Neck Exam: Positive: Supple; Negative: JVD, thyromegaly Chest Exam: Positive: Clear to auscultation, Normal air movement Heart Exam: Positive: Rate Normal, Regular Rhythm, Normal S1, Normal S2; Negative: Murmurs, Rubs Telemetry: Positive: No significant arrhythmia Abdomen Exam: Positive: Normal bowel sounds, Soft, Tenderness (epigastric); Negative: Hepatospenomegaly Extremity Exam: Positive: Normal pulses; Negative: Clubbing, Cyanosis, Edema Psych Exam: Positive: Mental status NL, Mood NL, Oriented x 3 Assessment /Plan Assessment Patient was uncomfortable, but felt nausea was somewhat improved, and wanted to try drinking. Thin liquids as tolerated. Consulted GI; possibly may require transfer for services not available here. -- CDT Problems (1) Abdominal pain Status: Acute Problem Text: ice chips, IVF, pain medication. 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 (2) Superior mesenteric artery stenosis Status: Acute Problem Text: failed stenting attempt with IR x 2. Was pending for vascular consult as an outpatient. (3) Hypokalemia Status: Acute Problem Text: Potassium of 3.1 today. Added in IVF (4) Transaminitis Status: Acute Problem Text: hx of CBD with biliary stenting at [facility]. Pathology from brushings unavailable. (5) Hypertension Status: Acute Problem Text: elevated BP today. Will resume Amlodipine and monitor. (6) PVD (peripheral vascular disease) Status: Chronic Response to Treatment: Stable (7) Emphysema Status: Chronic Problem Text: oxygen sats stable. Plan/VTE VTE Prophylaxis Ordered?: Yes Plan IVF: Change Diet: Make NPO (with ice chips) Respiratory: Pulse Ox on Room Air Diagnostics: Repeat Labs in AM Anticipated Discharge: Home VS, I&O, 24H, [facility] Vital Signs/I&O Vital Signs Date Time Temp Pulse Resp B/P (MAP) Pulse Ox O2 Delivery O2 Flow Rate FiO2 09/20/19 06:20 18 09/20/19 06:07 Room Air 09/20/19 05:30 97.6 127 188/100 (129) 95 I&O- Last 24 Hours up to 6 AM 09/20/19 06:00 Intake Total 1000 ml Output Total 100 ml Balance 900 ml Laboratory Data 24H LABS Laboratory Tests 2 09/19/19 20:56: Immature Granulocyte % (Auto) 1.0, Neutrophils (%) (Auto) 89.3H, Lymphocytes (%) (Auto) 3.3L, Monocytes (%) (Auto) 6.0H, Eosinophils (%) (Auto) 0.1, Basophils (%) (Auto) 0.3, Neutrophils # (Auto) 22.8H, Lymphocytes # (Auto) 0.8L, Monocytes # (Auto) 1.5H, Eosinophils # (Auto) 0.0, Basophils # (Auto) 0.1, Nucleated Red Blood Cells % (auto) 0.0, Anion Gap 13, Glomerular Filtration Rate > 60.0, Lactic Acid Level 2.4*H, Calcium Level 9.0, Total Bilirubin 0.6, Direct Bilirubin 0.2, Aspartate Amino Transf (AST/SGOT) 24, Alanine Aminotransferase (ALT/SGPT) 19, Alkaline Phosphatase 151H, Total Creatine Kinase 20L, Creatine Kinase MB < 1.0, Creatine Kinase MB Relative Index 5.00H, Troponin I < 0.02, Total Protein 7.2, Albumin 3.3, Albumin/Globulin Ratio 0.85L, Lipase 55L 09/20/19 02:40: Urine Color YELLOW, Urine Appearance CLEAR, Urine pH 6.0, Urine Specific [place] >1.060H, Urine Protein NEGATIVE, Urine Glucose (Auto)(UA) NEGATIVE, Urine Ketones (Auto) TRACEH, Urine Blood 1+H, Urine Nitrite NEGATIVE, Urine Bilirubin NEGATIVE, Urine Urobilinogen 0.2, Urine Leukocyte Esterase (Auto) NEGATIVE, Urine WBC (Auto) 2, Urine RBC (Auto) 1, Urine Hyaline Casts (Auto) 0, Urine Bacteria (Auto) NEGATIVE, Urine Squamous Epithelial Cells 7, Urine Mucus (Auto) SMALL, Urine Sperm (Auto) 09/20/19 05:49: Anion Gap 10, Glomerular Filtration Rate > 60.0, Lactic Acid Level 2.8*H, Calcium Level 9.2, Total Bilirubin 0.5, Aspartate Amino Transf (AST/SGOT) 43H, Alanine Aminotransferase (ALT/SGPT) 27, Alkaline Phosphatase 139H, Total Protein 6.9, Albumin 3.2, Albumin/Globulin Ratio 0.86L, Magnesium Level 1.6L 09/20/19 05:50: Immature Granulocyte % (Auto) 1.2, Neutrophils (%) (Auto) 88.8H, Lymphocytes (%) (Auto) 3.6L, Monocytes (%) (Auto) 6.2H, Eosinophils (%) (Auto) 0.0, Basophils (%) (Auto) 0.2, Neutrophils # (Auto) 26.1H, Lymphocytes # (Auto) 1.1L, Monocytes # (Auto) 1.8H, Eosinophils # (Auto) 0.0, Basophils # (Auto) 0.1, Nucleated Red Blood Cells % (auto) 0.0 09/20/19 06:15: Blood Gas Bicarbonate Standard 26.0, Arterial Blood pH 7.446, Arterial Blood Partial Pressure CO2 38.4, Arterial Blood Partial Pressure O2 64.8L, Arterial Blood Total CO2 27.0, Arterial Blood HCO3 25.9, Arterial Blood Base Excess 1.9, Arterial Blood Oxygen Saturation 93.1L CBC/BMP Laboratory Tests 09/19/19 20:56 09/20/19 05:49 09/20/19 05:50 Microbiology Microbiology 09/20/19 Blood Culture, Received Pending 09/20/19 Urine Culture, Received Pending Lisseth Clark [facility] Sep 20, 2019 08:27 FREDIS HAILE DO Sep 21, 2019 02:21
[2019-09-20] MEDS ORDERED: DOCUSATE SODIUM 100 MG CAP PO SCH (09:00)
[2019-09-20] MEDS: PANTOPRAZOLE 40MG INJ (PROTONIX) (C9113) IV SCH ×2 (09:00→21:18)
[2019-09-20] MEDS: KCL 40MEQ IN D5/0.45NS 1000ML 1,000 ML IV SCH ×2 (09:00→18:00)
[2019-09-20] MEDS: metroNIDAZOLE 500 MG in IV 1 EA IV SCH ×3 (09:00→21:18)
[2019-09-20] MEDS ORDERED: METOPROLOL TART 25 MG TABLET PO SCH (09:00)
[2019-09-20] MEDS: ENOXAPARIN 40 MG/0.4 ML SYRINGE (J1650) SC SCH (09:01)
[2019-09-20] MEDS: ATORVASTATIN 20 MG TAB PO SCH (09:01)
[2019-09-20] MEDS: amLODIPine 5 MG TAB PO SCH (09:01)
[2019-09-20] MEDS: CIPROFLOXACIN 400 MG in IV 1 EA IV SCH ×2 (11:50→22:08)
[2019-09-20 12:00] VITALS: BP 154/90
[2019-09-20] MEDS: KETOROLAC 30 MG/ML VIAL (J1885) IV PRN (12:03)
[2019-09-20] MEDS ORDERED: DOCUSATE SODIUM 100 MG CAP PO PRN (15:00)
[2019-09-20] MEDS ORDERED: NS 1,000 ML IV ONE (15:45)
[2019-09-20 16:00] VITALS: BP 144/82
[2019-09-20 20:00] VITALS: BP 188/98
[2019-09-21] VITALS (7 sets, daily range): BP systolic 126–180; BP diastolic 80–94
[2019-09-21] MEDS: MORPHINE 2 MG/ML 1ML VIAL (J2270) IV PRN ×5 (01:58→20:28)
[2019-09-21] MEDS: KCL 40MEQ IN D5/0.45NS 1000ML 1,000 ML IV SCH ×2 (04:14→13:08)
[2019-09-21 05:58] LABS: HEMATOCRIT 36.9 % (36.0-47.0); MEAN CORPUSCULAR HEMOGLOBIN 32.6 pg (27.0-33.0); MEAN CORPUSCULAR HGB CONC 33.9 g/dl (32.0-36.5); MEAN CORPUSCULAR VOLUME 96.3 fl (80.0-96.0); PLATELET COUNT, AUTOMATED 274 10^3/uL (150-450); RED BLOOD COUNT 3.83 10^6/uL (4.00-5.40)
[2019-09-21 05:59] LABS: WHITE BLOOD COUNT 31.4 10^3/uL (4.0-10.0)
[2019-09-21 06:00] LABS: HEMOGLOBIN 12.5 g/dl (12.0-15.5)
[2019-09-21 06:31] LABS: ALBUMIN 2.5 GM/DL (3.2-5.2); ALT/SGPT 37 U/L (12-78); BILIRUBIN,TOTAL 0.5 MG/DL (0.2-1.0); BLOOD UREA NITROGEN 4 MG/DL (7-18); CALCIUM LEVEL 8.1 MG/DL (8.8-10.2); CARBON DIOXIDE LEVEL 26 MEQ/L (21-32); CHLORIDE LEVEL 98 MEQ/L (98-107); CREATININE FOR GFR 0.43 MG/DL (0.55-1.30); GLOMERULAR FILTRATION RATE > 60.0 (>45); GLUCOSE, FASTING 143 MG/DL (70-100); POTASSIUM SERUM 2.9 MEQ/L (3.5-5.1); SODIUM LEVEL 133 MEQ/L (136-145)
[2019-09-21] MEDS: metroNIDAZOLE 500 MG in IV 1 EA IV SCH (06:38)
[2019-09-21] MEDS: KETOROLAC 30 MG/ML VIAL (J1885) IV PRN (06:39)
[2019-09-21 07:49] LABS: BASO # 0.1 10^3/uL (0.0-0.2); BASO % 0.4 % (0.0-1.0); LYMPH # 1.7 10^3/uL (1.5-5.0); LYMPH % 5.4 % (24.0-44.0); MONO % 7.9 % (0.0-5.0); NEUTROPHILS % 85.7 % (36.0-66.0)
[2019-09-21 07:50] LABS: C REACTIVE PROTEIN QUANTITATIV 9.54 MG/DL (0.00-0.30)
[2019-09-21 08:22] LABS: MONO # 2.5 10^3/uL (0.0-0.8); NEUTROPHILS # 26.7 10^3/uL (1.5-8.5)
--- NOTE | 2019-09-21 08:34 | IPNPDOC ---
Subjective Date Seen The patient was seen on 09/21/19. Subjective Chief Complaint/HPI abdominal pain Events since last encounter patient with worsening WBC, hypoxia overnight requiring oxygen. pain continues. Patient had large amount of dark stools this morning. MRA pending, CXR ending. repeat bl cxs ordered. CRP elevated. Lactic acid is pending. patient states abdominal pain is unchanged, but is chronic. no vomiting noted. Potassium level 2.9 this am. Initial recommendation from GI consult was to transfer to [facility]. transfer initiated at [address] Johnson general surgery, advised he will see patient and treat. Transfer placed on hold. Constitutional: Reports: Weakness, Fatigue, Lethargy; Denies: Chills, Fever, Night Sweats ENT: Denies: Head Aches, Ear Pain, Dysphagia Skin: Denies: Rash, Lesions, Breakdown Pulmonary: Reports: Dyspnea Cardiovascular: Denies: Chest Pain, Palpitations, Orthopnea, Paroxysmal Noc. Dyspnea, Lt Headedness Gastrointestinal: Reports: Nausea, Abdominal Pain, Diarrhea; Denies: Vomiting, Constipation, Melena Genitourinary: Denies: Dysuria, Frequency, Incontinence, Retention Psych: Reports: Mood Normal; Denies: Depression, Memory Issues Objective Physical Examination General Exam: Positive: Alert, No Acute Distress Eye Exam: Positive: PERRLA, Conjunctiva & lids normal, EOMI; Negative: Sclera icteric Neck Exam: Positive: Supple; Negative: JVD, thyromegaly Chest Exam: Positive: Clear to auscultation, Normal air movement Heart Exam: Positive: Rate Normal, Regular Rhythm, Normal S1, Normal S2; Negative: Murmurs, Rubs Telemetry: Positive: No significant arrhythmia Abdomen Exam: Positive: Normal bowel sounds, Soft, Tenderness (epigastric); Negative: Hepatospenomegaly Extremity Exam: Positive: Normal pulses; Negative: Clubbing, Cyanosis, Edema Psych Exam: Positive: Mental status NL, Mood NL, Oriented x 3 Assessment /Plan Assessment Agree with below. Worsening condition and discomfort, inability to tolerate PO. Discussed with consultants, and patient transferred to [facility]. -- CDT Problems (1) Leukocytosis Status: Acute Problem Text: IV abx changed to meropenem and linezolid for broad spectrum coverage. PCN allergy was a description of boils several years ago. Will proceed with meropenem. (2) Abdominal pain Status: Acute Problem Text: NPO IVF, pain medication. 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 MRA, ABG, repeat bl cxs (3) Superior mesenteric artery stenosis Status: Acute Response to Treatment: Compensated Problem Text: failed stenting attempt with IR x 2. Was pending for vascular consult as an outpatient. (4) Hypokalemia Status: Acute Problem Text: Potassium of 2.9. Will proceed with Kruns IV x 3, continue potassium in maintenance IVF (5) Transaminitis Status: Acute Problem Text: mild AST elevation. hx of CBD with biliary stenting at [facility]. Pathology from [facility] unavailable. (6) Hypertension Status: Acute Problem Text: elevated BP. Will resume Amlodipine and monitor. (7) PVD (peripheral vascular disease) Status: Chronic Response to Treatment: Stable (8) Emphysema Status: Chronic Problem Text: CXR. requiring oxygen. Plan/VTE VTE Prophylaxis Ordered?: Yes Plan IVF: Change Diet: Make NPO (with ice chips) Respiratory: Pulse Ox on Room Air Diagnostics: Repeat Labs in AM Anticipated Discharge: Home VS, I&O, 24H, [facility] Vital Signs/I&O Vital Signs Date Time Temp Pulse Resp B/P (MAP) Pulse Ox O2 Delivery O2 Flow Rate FiO2 09/21/19 04:00 97.9 115 18 168/80 (109) 92 Nasal Cannula 2.0 I&O- Last 24 Hours up to 6 AM 09/21/19 06:00 Intake Total 2920 ml Output Total 2300 ml Balance 620 ml Laboratory Data 24H LABS Laboratory Tests 2 09/20/19 10:05: Lactic Acid Followup at 4 Hours 1.6 09/20/19 13:58: Lactic Acid Level 2.3*H 09/20/19 18:22: Lactic Acid Followup at 4 Hours 1.8 09/21/19 05:16: Immature Granulocyte % (Auto) 0.6, Neutrophils (%) (Auto) 85.7H, Lymphocytes (%) (Auto) 5.4L, Monocytes (%) (Auto) 7.9H, Eosinophils (%) (Auto) 0.0, Basophils (%) (Auto) 0.4, Immature Granulocyte # (Auto) 0.2H, Neutrophils # (Auto) 26.7H, Lymphocytes # (Auto) 1.7, Monocytes # (Auto) 2.5H, Eosinophils # (Auto) 0.0, Basophils # (Auto) 0.1, Nucleated Red Blood Cells % (auto) 0.0, Platelet Estimate , Anion Gap 9, Glomerular Filtration Rate > 60.0, Calcium Level 8.1L, Total Bilirubin 0.5, Aspartate Amino Transf (AST/SGOT) 52H, Alanine Aminotransferase (ALT/SGPT) 37, Alkaline Phosphatase 116, C-Reactive Protein, Quantitative 9.54H, Total Protein 6.0L, Albumin 2.5#L, Albumin/Globulin Ratio 0.71L 09/21/19 07:48: CBC/BMP Laboratory Tests 09/21/19 05:16 Microbiology Microbiology 09/21/19 Blood Culture, Received Pending 09/20/19 Blood Culture - Preliminary, Resulted No growth after 24 hours . All specim... 09/20/19 Urine Culture, Received Pending Lisseth Clark [facility] Sep 21, 2019 08:34 FREDIS HAILE DO Sep 22, 2019 18:56
--- NOTE | 2019-09-21 08:37 | REP ---
PA and lateral chest: Comparison is the portable chest dated 09/09/2019. Lung lanier are clear and unchanged. Cardiac size is normal. The julienne and mediastinum are unremarkable. There is deformity of the left humeral head, unchanged, possibly old post-traumatic change. Impression: No acute cardiopulmonary findings. Electronically Signed by Taj Byrd MD 09/21/2019 08:28 A
[2019-09-21] MEDS: ENOXAPARIN 40 MG/0.4 ML SYRINGE (J1650) SC SCH (08:43)
[2019-09-21] MEDS: PANTOPRAZOLE 40MG INJ (PROTONIX) (C9113) IV SCH ×2 (08:43→20:27)
[2019-09-21] MEDS: KCL 10MEQ/100ML SWI (KRUN) 10 MEQ in IV 1 EA IV SCH ×3 (08:43→13:08)
[2019-09-21] MEDS: ATORVASTATIN 20 MG TAB PO SCH (08:44)
[2019-09-21] MEDS: amLODIPine 5 MG TAB PO SCH (08:44)
[2019-09-21 09:07] LABS: ABG BASE EXCESS -0.5 (-2.0-2.0); ABG HCO3 22.2 MEQ/L (22.0-26.0); ABG O2 SATURATION 97.5 % (95.0-99.0); ABG PARTIAL PRESSURE CO2 30.8 mmHg (35.0-45.0); ABG PARTIAL PRESSURE O2 85.5 mmHg (75.0-100.0); ABG STANDARD HCO3 24.1 MEQ/L (22.0-26.0); ABG TOTAL CO2 23.2 MEQ/L (23.0-31.0); ABG pH (ARTERIAL) 7.476 UNITS (7.350-7.450)
[2019-09-21] MEDS: MEROPENEM INJ 1 GM in IV 1 EA IV SCH ×2 (10:21→18:44)
--- NOTE | 2019-09-21 10:23 | CR.PDOC ---
General Surgery Consultation Date of Consultation 09/21/19 History and Physical CONSULT REPORT FOR: Clemente Puente MD, Roxanne Clark NP REASON FOR CONSULTATION: abdominal pain, leukocytosis HISTORY OF PRESENT ILLNESS: Patient is known to me from previous admissions. I last saw her back in early July when she was admitted for unexplained epigastric abdominal pain which she has had chronically. I previously did a laparoscopic cholecystectomy back in December 2018 thinking she was having biliary colic attacks for the same epigastric pain and discomfort, diarrhea and vomiting. At that time he did an upper endoscopy for she has had some shallow aphthous-type ulcers which were nonbleeding. She was also seen concurrently by interventional radiology. 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 This could possibly explain her chronic abdominal pain and discomfort especially that her discomfort increases post prandially. An attempt has been made to further clarify this with cholangiogram which was done twice by Dr. Henderson and she was unable to cannulate the SMA. She did find the celiac artery is patent. She apparently got readmitted back on 08/07/2019. During that presentation she was noted to have mildly elevated LFTs which is new. An MRCP was done she was found to have a possible 4 mm stone in the distal end of, bile duct with mild intrahepatic and extrahepatic biliary duct dilatation. She was subsequently transferred to [facility] as we did not have gastroenterology available during that time for an ERCP. She eventually had an ERCP apparently had a stent left in her bile duct. She tells me she spent a couple of weeks in the hospital and also was seen by a vascular surgeon during that admission. When she went home she had about a week of relief of her symptoms and was relatively pain-free but then this promptly returned and persisted since then. This was acutely exacerbated with multiple episodes of vomiting Thursday evening prompting her to consult to the emergency room on Thursday and subsequently she was admitted. During that admission she was already noted to have elevated white count 25,000 with predominant neutrophils. Her LFTs were normal save for mildly elevated alkaline phosphatase. Her lipase is normal at 55. She had a CT abdomen and pelvis done during that time which did not show any acute intra-abdominal pathology to explain her symptoms. She was subsequently admitted, given IV fluid hydration an d her potassium was repleted. The following day her white count continues to rise up to 29.4. Today's up to 31.4. Her initial lactic acid was mildly elevated but has now normalized. She did normal ABG done which is not showing any acidemia. At the time that I saw her she reports pain is just about the same was her previous symptoms, mainly centered at the epigastric area. She is no longer nauseated. She has had one episode of loose stool and this was sent to check for an infectious process and so far yielded negative results of the PCR. Being asked to render my opinion as to the cause of her pain and leukocytosis with particular concern for possibility that she may have acute exacerbation of her chronic mesenteric ischemia to explain the leukocytosis and whether she needs any emergent surgery. PAST MEDICAL HISTORY: 1. 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 She has evidence for peripheral vascular disease with a stent and prior aorto femoral bypass graft Hypertension, coronary artery disease She had a prior history of DVT and was previously on Coumadin. She is no longer in any anticoagulants. PAST SURGICAL HISTORY: INCLUDES: 1. Most recently she has had an ERCP and stent placement in [facility] in July 2019. She had laparoscopic cholecystectomy in December 2018. She did prior to this had bilateral total knee arthroplasties and 2 sections. She is also status post hysterectomy. ALLERGIES: Please see below. FAMILY HISTORY: Noncontributory. HOME MEDICATIONS: Please see below. REVIEW OF SYSTEMS: GENERAL: Patient reports weight loss due to chronic abdominal pain and discomfort roughly about 30 pounds. HEENT: [Denies blurred vision and double vision. Denies ear symptoms. Denies hoarseness]. NECK: Denies any neck pain CARDIOVASCULAR: [Denies chest pain and palpitations].. SKIN: [Denies rash]. NEUROLOGIC: [Denies headache, stroke and transient ischemic attack]. HEMATOLOGY/ONCOLOGY: She prior history of DVT. She is not on any anticoagulation at this time. HEART: [Denies any chest pains, palpitations, paroxysmal dyspnea, orthopnea]. PULMONARY: [Denies chronic cough, dyspnea and wheezing]. GASTROINTESTINAL: See HPI. GENITOURINARY: [Denies dysuria, frequency, hematuria and nocturia]. ENDOCRINE: [Denies polydipsia, polyphagia, polyuria, heat or cold intolerance]. INFECTIOUS: She is not sure if she was given antibiotics during the prior hospitalization in [facility]. NUTRITION: Reports poor appetite due to abdominal pain. PHYSICAL EXAMINATION: VITALS SIGNS: Please see below. GENERAL APPEARANCE: Patient seen laying on bed relatively comfortable. She appears older than her age. SKIN: Warm and dry. HEENT: [Normocephalic, atraumatic. Mild pale palpebral conjunctiva, anicteric sclerae. Lips and mucosa appear dry]. NECK: [Supple, no thyromegaly. No obvious jugular venous distention]. LUNGS: [Clear to auscultation bilaterally. No wheezing appreciated]. HEART: [No chest wall abnormalities. Regular rate and rhythm with no murmurs appreciated]. ABDOMEN: Abdomen is soft, mildly distended and tympanitic to percussion. She has tenderness over the epigastric area but no noticeable guarding. She is nontender on the lateral abdomen and lower abdomen. She has hypoactive bowel sounds. She had prior cholecystectomy and hysterectomy incisions that are healed. No evidence for incisional hernia, umbilical hernia or groin hernias. EXTREMITIES: No significant extremity edema ANCILLARIES: LABORATORY DATA: Please see below. Significant for rising leukocytosis. Currently at 31.4. Her hemoglobin and hematocrit is relatively stable though one presentation this was 15 and 43. Probably more due to hemoconcentration from dehydration though she has reported multiple episodes of vomiting the night prior. Currently desist 12.5 and 37. Platelets are 274. Her LFTs are normal. Lipase is normal. On presentation her lactic acid is 2.4. This is normalized to 1.9 today. She has a blood gas done on 09/20/2019 which does not show any acidemia. Base deficit is +1.9. This was repeated today still no acidemia. Slight base deficit of -0.5. She is hypokalemic today as the fashion of 2.9. She has normal BUN and creatinine. IMAGING STUDIES: CT scan abdomen and pelvis this was read as normal with no acute inflammatory process. There is no evidence for small bowel wall thickening. No free fluid or free air. Biliary stent is visualized with some slight pneumobilia. She had a CT angiogram done on 09/09/2019. Patient is during one of her emergency room visits. I noted that and dose to images her stomach is distended. Again the SMA occlusion is noted with reconstitution distal to this. Process. IMPRESSION AND PLAN: chronic epigastic pain with acute exacerbation recent h/o biliary obstruction s/p ercp and stenting (at [facility] on 07/2019) chronic occlusion of SMA, DEON, partially celiac As mentioned she is known to me from a previous interactions with her. I was at one point convinced that she was having biliary colic attacks from her cholesterolosis and she had cholecystectomy performed in December 2018. Even after this her pain persisted. Back in July we noted that she had chronic occlusion of the SMA and our interventional radiologists is tried to cannulate this without success. She was seen by the avascular surgeon during her last admission [facility] reportedly and is encouraged to follow up with them as an outpatient. She continues to have abdominal pain. Thing dyspnea and now is that she has this persistent leukocytosis. She also has had a recent biliary stent placement. Location of the pain continues to be mostly epigastric. I did note that she had some small amount of gastritis during the last endoscopy in July. I don't think she has acute ischemia with her history and likewise her physical appearance. She is hemodynamically stable. She is mildly tachycardic but has a normal rhythm. Most of the tenderness at this at the epigastric area. She does not have any lactic acidosis or acidemia. She does have evidence for chronic pain from chronic ischemia so this could get exacerbated but I don't think to the point that she needs emergency abdominal exploration right now. I will be interested to know what transpired during her last admission at [facility]. It is surprising she spent a total of 2 weeks during that hospitalization. She does have some I would think infectious process going on. She has little pneumobilia. With the stent being present this could be a two-way passage of bacterial translocation to the biliary tree. I don't think she has any obstruction right now as her LFTs are normal. I'm not sure whether it'll be worthwhile to do an upper endoscopy to check if there is any progression of the gastritis, shallow aphthous ulcers. She does have evidence of almost all the time distended stomach so she might have an element of gastroparesis. I do agree that she needs to be followed up closely especially that we do not have yet a grasp on why she is persistent leukocytosis. suggest try to get records from recent hospitalization at [facility] - not clear why the need for stent. Though she is tender at epigastric area and mildly distended, her exam is fairly benign, course so far is also benign. She is hemodynamically stable, no acidemia, lactic acidosis to suggest acute ischemia. Source of leukocytosis not clear, she has been started on IV antibiotics. Continue IVF hydration, make sure adequately hydrated. replete electrolytes. will add some carafate maybe some reglan. Her stomach has been consistently dilated on her imaging studies so not sure if there is an element of gastroparesis. Suggest vascular surgery consult. will follow closely. Vital Signs Vital Signs Date Time Temp Pulse Resp B/P (MAP) Pulse Ox O2 Delivery O2 Flow Rate FiO2 09/21/19 09:30 20 Nasal Cannula 2.0 09/21/19 08:44 115 168/80 09/21/19 08:00 98.1 96 I&Os I&O- Last 24 Hours up to 6 AM 09/21/19 06:00 Intake Total 2920 ml Output Total 2300 ml Balance 620 ml Laboratory Data Labs 24H Laboratory Tests 2 09/20/19 13:58: Lactic Acid Level 2.3*H 09/20/19 18:22: Lactic Acid Followup at 4 Hours 1.8 09/21/19 05:16: Immature Granulocyte % (Auto) 0.6, Neutrophils (%) (Auto) 85.7H, Lymphocytes (%) (Auto) 5.4L, Monocytes (%) (Auto) 7.9H, Eosinophils (%) (Auto) 0.0, Basophils (%) (Auto) 0.4, Immature Granulocyte # (Auto) 0.2H, Neutrophils # (Auto) 26.7H, Lymphocytes # (Auto) 1.7, Monocytes # (Auto) 2.5H, Eosinophils # (Auto) 0.0, Basophils # (Auto) 0.1, Nucleated Red Blood Cells % (auto) 0.0, Platelet Estimate , Anion Gap 9, Glomerular Filtration Rate > 60.0, Calcium Level 8.1L, Total Bilirubin 0.5, Aspartate Amino Transf (AST/SGOT) 52H, Alanine Wynn otransferase (ALT/SGPT) 37, Alkaline Phosphatase 116, C-Reactive Protein, Quantitative 9.54H, Total Protein 6.0L, Albumin 2.5#L, Albumin/Globulin Ratio 0.71L 09/21/19 07:48: Lactic Acid Level 1.9 09/21/19 08:56: Blood Gas Bicarbonate Standard 24.1, Arterial Blood pH 7.476H, Arterial Blood Partial Pressure CO2 30.8L, Arterial Blood Partial Pressure O2 85.5, Arterial Blood Total CO2 23.2, Arterial Blood HCO3 22.2, Arterial Blood Base Excess -0.5, Arterial Blood Oxygen Saturation 97.5 CBC/BMP Laboratory Tests 09/21/19 05:16 Microbiology Microbiology 09/21/19 Blood Culture, Received Pending 09/21/19 Gastrointestinal Tract Panel (PCR), Received Pending 09/21/19 Blood Culture, Received Pending 09/20/19 Blood Culture - Preliminary, Resulted No growth after 24 hours . All specim... 09/20/19 Urine Culture, Received Pending Home Medications Scheduled Atorvastatin Calcium (Atorvastatin Calcium) 20 Mg Tablet, 20 MG PO DAILY, ( Reported) Famotidine (Famotidine) 20 Mg Tablet, 20 MG PO DAILY, (Reported) Pantoprazole Sodium (Pantoprazole Sodium) 40 Mg Tablet.dr, 40 MG PO DAILY, (Reported) Scheduled PRN Acetaminophen (Tylenol Extra Strength) 500 Mg Tablet, 1,000 MG PO Q6H PRN for PAIN / FEVER, (Reported) Allergies Coded Allergies: Penicillins (Verified Allergy, Intermediate, hives, 09/19/19) aspirin (Verified Allergy, Mild, rash, 09/19/19) vancomycin (Verified Allergy, Mild, rash itching, 09/19/19) iron (Verified Adverse Reaction, Mild, flu symptoms, 09/19/19) YAKOV HUNTER MD Sep 21, 2019 10:23
[2019-09-21] MEDS ORDERED: LINEZOLID 600 MG in IV 1 EA IV SCH (11:00)
[2019-09-21] MEDS: METOCLOPRAMIDE INJ 10MG/2ML VIAL (J2765) IV SCH ×2 (11:02→16:59)
[2019-09-21] MEDS ORDERED: KCL 10MEQ IN STERILE WATER 100ML As Ordered ONE (13:02)
[2019-09-21] MEDS: SUCRALFATE SUSP 1GM/10ML UD PO SCH ×2 (13:08→17:00)
--- NOTE | 2019-09-21 14:44 | ECGEPIP ---
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
--- NOTE | 2019-09-21 14:56 | IPNPDOC ---
Text Note Date of Service NOTE CTA images and chart reviewed on this patient. She has a history of abdominal pain thought to be chronic mesenteric ischemia. She has a history of PAD with what appear to be iliac stents in place and possible fem-pop bypass on some kind of left leg arterial intervention. Her aorta is diffusely calcified on the CTA, SMA and DEON are occluded and celiac is diseased. She is currently admitted for abdominal pain and leukocytosis. She has a history of recent biliary stent placement at facility in [place]. Per records, she was to be evaluated by vascular surgery and may have been evaluated when in [place]. Surgery to improve mesenteric arterial flow will likely be complex and difficult given her extensive PAD. I would recommend referral to a tertiary center such a complex aortic procedure. Her disease and symptoms however are chronic and she likely does not need acute intervention. VS,Fishbone, I+O VS, Fishbone, I+O Laboratory Tests 09/21/19 05:16 Vital Signs Date Time Temp Pulse Resp B/P (MAP) Pulse Ox O2 Delivery O2 Flow Rate FiO2 09/21/19 13:25 20 Nasal Cannula 1.0 09/21/19 11:31 97.5 111 164/82 (109) 96 I&O- Last 24 Hours up to 6 AM 09/21/19 06:00 Intake Total 2920 ml Output Total 2300 ml Balance 620 ml NAEEM MEI MD Sep 21, 2019 14:55
[2019-09-21 15:39] LABS: HEMATOCRIT 38.2 % (36.0-47.0); HEMOGLOBIN 12.7 g/dl (12.0-15.5)
[2019-09-21] MEDS ORDERED: PROHANCE 279.3MG/ML 15ML VIAL (A9576) As Ordered ONE ×2 (17:26→17:27)
--- NOTE | 2019-09-21 19:17 | REP ---
MR angiography of the abdomen with IV gadolinium: History: Please exclude large vessel visceral artery occlusion. Question abdominal angina. Comparison is made with CT angiography of the abdomen and pelvis from September 09, [address] abdomen and pelvis study with IV contrast from September 20, 2019. The CT angiography showed high-grade stenoses of both renal arteries, the celiac artery, and an occlusion with reconstituted flow in the proximal SMA. These findings are also visible on the CT study of the abdomen from September 20, 2019. I believe the DEON has been occluded. There is a long vascular stent in the left common iliac and left external iliac artery. Gadolinium enhancement dose is 30 mL of intravenous ProHance. MR angiographic findings: There is evidence of a high-grade stenosis to the proximal right renal artery. There is some stenosis of the proximal left renal artery. The renal arteries appear to be singular. These stenoses are felt to be unchanged. The left common iliac through left common femoral artery stent occludes flow signal on MR. There is normal flow signal in the common femoral artery extending into the proximal thigh on the left beyond the stent. There is a high-grade stenosis of the right common iliac artery. Flow signal in the right external iliac artery is not seen beyond the central pelvis. I cannot exclude right external iliac artery occlusion. This segment of the artery is heavily calcified on CT imaging. There are some collaterals on the left. There is only faint flow signal in the celiac artery branches on coronal source images. There is a small filling defect along the ventral margin of the aorta at the origin of the celiac axis. The spin images do not visualize the celiac axis branches suggesting very high-grade near occlusion stenosis. A high-grade stenosis was seen on CT angiography, however, the celiac artery lumen just beyond the stenosis was better seen on CT angiography in August and in the September 20 study. The celiac artery flow perfusion appears to have worsened. There is an occlusion again noted in the superior mesenteric artery origin with reconstituted flow several centimeters distal. This reconstituted flow is also less well seen than on CT angiography. No flow is seen in the proximal DEON. Impression: Multivessel visceral arterial disease including occlusion of the proximal several centimeters of the SMA as seen previously and high-grade stenosis versus nearly complete occlusion of the celiac artery. Only trace of celiac artery branch flow signal is seen. The DEON is believed to be occluded as well. There is a high-grade stenosis of the right renal artery and moderate stenosis of the left renal artery. There is evidence of a right external iliac artery occlusion. A long vascular stent is in place from the common iliac to the common femoral segment on the left and this is believed to be patent although the metallic nature of the stent obscures flow signal on MRA images . Multiple large and small bowel fluid-filled mildly dilated loops are seen throughout the abdomen. Electronically Signed by Everardo Tripp MD 09/21/2019 07:34 P
--- NOTE | 2019-09-21 22:13 | CR ---
DATE OF CONSULTATION: 09/21/2019 This is a 69-year-old white female with multiple medical problems including known apparent chronic mesenteric ischemia and chronic abdominal pain. The patient has had numerous studies and has known major vessel occlusions of the GI tract. She is status post stent placement with an aortofemoral bypass graft. She has coronary artery disease, dyslipidemia, history of DVT, was on Coumadin. The patient presented again with nausea, vomiting and abdominal pain. She apparently describes the pain as 9/10, being continuous, and aching and throbbing. Pain is localized in the epigastric area. She has episodes of vomiting up to 10-12 times a day. She is unable to keep liquids or solids down and apparently has had a 30-pound weight loss. She apparently has had these issues of abdominal pain for the past year. She was hospitalized at [facility] and apparently had an ERCP and stent placement for an apparent common bile duct stone over the holidays. The patient is known to Dr. Johnson and to the vascular surgeons. She presents with a leukocytosis and elevated lactate levels. The patient is being asked to be seen by GI for sorting out the patient's abdominal pain. REVIEW OF SYSTEMS: Noncontributory. PAST MEDICAL HISTORY: Positive for multivessel, three-vessel occlusion of the GI tract including SMA, iliac artery and the RODAS. The patient has chronic mesenteric ischemia causing abdominal pain. She has hypertension, coronary artery disease, dyslipidemia, osteoporosis, history of DVT, hepatic steatosis, psoriasis, depression, status post laparoscopic cholecystectomy in December of 2018, status post ERCP with stent placement which apparently is plastic, the patient had bilateral total knee arthroplasties, she is status post hysterectomy. SOCIAL HISTORY: The patient is . She is a former smoker up to one pack of cigarettes a day for the past 40 years. Mother unspecified GI issues. Daughter two years ago from uterine cancer. ALLERGIES: As above. MEDICATIONS: Above. The patient is a well-developed, white female in some distress. Appears her stated age. Chest is clear to auscultation. Cardiovascular exam showed a regular rhythm. No murmurs or gallops. Normal physiological split S1-S2. Abdomen: Soft, mild epigastric tenderness. No hepatosplenomegaly. Bowel sounds are positive. Extremities: No cyanosis, clubbing, edema. Pascual's negative. LABORATORY STUDIES: On this admission: Shows a rising white count with white count 25,000 on admission and last white count on 09/21/2019 showed a white count of 31,000. The patient's hemoglobin and hematocrit has been stable at around 15 to 12.5. No signs of active bleeding. Chemistry was essentially normal. Liver functions normal. Alkaline phosphatase was 151. Troponins were negative. Albumin was 3.3. Lipase was 55. IMAGING STUDIES: Included abdominal CT on 09/19/2019 which showed pneumobilia with a previous sphincterotomy and biliary stent placement. Pancreas was normal. There is no inflammation seen. No abnormalities seen on the CT scan to explain abdominal pain. Repeated the patient's MRA which now shows that she has almost complete obstruction of her three major vessels. PLAN: 1. Would recommend the patient be transferred to a tertiary care center [facility]. Our vascular surgeons do not appear to have the technical expertise to attempt an advanced operation to bypass these vessels. Interventional radiology has tried to stent these major vessels with two attempts without success. There is nothing that general surgery or GI can offer to alleviate the patient's pain. The patient has chronic mesenteric ischemia with collateral circulation at this point preventing her from developing an acute infarction. Would recommend the patient be given pain control in the meantime and if [facility] is not willing to accept the patient then we should look elsewhere such as [facility] or [place]. I discussed the patient multiple times with Dr. Johnson and he is in agreement.
--- NOTE | 2019-10-05 01:08 | DS.PDOC ---
Discharge Summary General Date of Admission Sep 20, 2019 at 03:53 Date of Discharge September 21, 2019 Primary Care Physician: FREDIS HAILE DO Attending Physician: FREDIS HAILE DO Discharge Summary PROCEDURES PERFORMED DURING STAY: [None]. 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 HISTORY OF PRESENT ILLNESS: is a 69-year-old female with past history of chronic mesenteric ischemia and abdominal pain 2/2 SMA occlusion with stent placement, PVD s/p stent placement and aortofemoral bypass graft, CAD, dyslipidemia, history of DVT 2014/2015 formerly on Coumadin, who presented to the ED with severe abdominal pain, nausea and vomiting. Patient describes the pain as 9/10, continuous throbbing and aching with occasional spasms radiating to the sides. She specifically states it is as if "someone is reaching in and twisting up all of [her] stomach." The pain is localized to the epigastrium and has been present for a year, but got acutely worse on Thursday night (2/2). Patient reports opioid pain medications, both at home and here in the ED, have helped to bring the pain down somewhat to 5 or 6/10. Patient reports vomiting between 1012 times from Thursday night (2/2) to Thursday night (2/3) with both liquids and solids. Her last episode of emesis was around 9 or 10 PM on Thursday night. She denies any hematemesis or coffee ground emesis. She has accompanying decreased appetite as well as diarrhea. Both the diarrhea and decreased appetite have been present for the last year, but the diarrhea became worse on Thursday resulting in approximately 7 episodes described as "partly watery." Patient denies recent illness other than chronic aforementioned symptoms, recent medication changes, recent extensive travel, or sick contacts. As far as recent diet, she has been eating less secondary to her diminished appetite and endorses a 30 pound unintentional weight loss over the past year. In the ED, patient was found to be tachycardic with leukocytosis, hypokalemia, elevated lactate (2.4), and elevated alkaline phosphatase. CT abdomen/pelvis showed no acute surgical inflammatory intra-abdominal or pelvic process with no expiration for GE junction symptoms. Patient received 40 mEq KCl, a liter of normal saline running at 1 50 mL per hour, morphine, Zofran and Phenergan. HOSPITAL COURSE: Patient was admitted to the hospital. Unfortunately, leukocytosis and abdominal discomfort worsened despite rest and IV antibiotics. An initial attempt to transfer to [place] was met with a query why we needed to transfer the patient, when we had general surgery and vascular surgery services here. However, vascular surgery assessed him and feels that he ought to be transferred; GI agreed. Patient was transferred. DISCHARGE MEDICATIONS: Please see below. ALLERGIES: Please see below. PHYSICAL EXAMINATION ON DISCHARGE: VITAL SIGNS: Please see below. GENERAL: appears ill and uncomfortable HEENT: mucous membranes moist NECK: supple CARDIOVASCULAR EXAMINATION: tachycardic, regular rhythm RESPIRATORY EXAMINATION: clear to auscultation bilat ABDOMINAL EXAMINATION: tender throughout, bowel sounds positive EXTREMITIES: trace edema bilat LE SKIN: no rash PSYCHIATRIC EXAMINATION: anxious LABORATORY DATA: Please see below. IMAGING: Abdominal MRA showed: Multivessel visceral arterial disease including occlusion of the proximal several centimeters of the SMA as seen previously and high-grade stenosis versus nearly complete occlusion of the celiac artery. Only trace of celiac artery branch flow signal is seen. The DEON is believed to be occluded as well. There is a high-grade stenosis of the right renal artery and moderate stenosis of the left renal artery. There is evidence of a right external iliac artery occlusion. A long vascular stent is in place from the common iliac to the common femoral segment on the left and this is believed to be patent although the metallic nature of the stent obscures flow signal on MRA images . Multiple large and small bowel fluid-filled mildly dilated loops are seen throughout the abdomen. CT of the abdomen and pelvis showed: 1. No acute surgical or inflammatory intra-abdominal or pelvic process. 2. No explanation for GE junction symptoms. 3. Biliary stent present with pneumobilia and no obvious complication. 4. Urinary bladder distention which may simply be voluntary. PROGNOSIS: guarded ACTIVITY: [As tolerated]. DIET: NPO DISCHARGE PLAN: transfer DISPOSITION: Xfer To Acute Hosp. TIME SPENT ON DISCHARGE: Greater than 20 minutes. Discharge Medications Scheduled Atorvastatin Calcium (Atorvastatin Calcium) 20 Mg Tablet, 20 MG PO DAILY, (Reported) Allergies Coded Allergies: Penicillins (Verified Allergy, Intermediate, hives, 09/19/19) aspirin (Verified Allergy, Mild, rash, 09/19/19) vancomycin (Verified Allergy, Mild, rash itching, 09/19/19) iron (Verified Adverse Reaction, Mild, flu symptoms, 09/19/19) FREDIS HAILE DO Oct 05, 2019 01:08
== END 2019-09-21 20:52 | disposition short-term general hospital (02) | DRG 301 ==
LOC: M ED 19:55 → EDBD 19:55 → M ED INP 09-20 03:53 → ENRESERV 09-20 04:08 → M PCU 09-20 05:29
PROVIDERS: ADMIT Internal Medicine; ATTEND Family Medicine
DX: I77.1 Stricture of artery (principal); R00.0 Tachycardia, unspecified; D72.829 Elevated white blood cell count, unspecified; E87.6 Hypokalemia; Z66 Do not resuscitate; I73.9 Peripheral vascular disease, unspecified; I10 Essential (primary) hypertension; I25.10 Atherosclerotic heart disease of native coronary artery without angina pectoris; Z95.1 Presence of aortocoronary bypass graft; Z95.5 Presence of coronary angioplasty implant and graft; E78.5 Hyperlipidemia, unspecified; M81.0 Age-related osteoporosis without current pathological fracture; Z86.718 Personal history of other venous thrombosis and embolism; K76.0 Fatty (change of) liver, not elsewhere classified; L40.9 Psoriasis, unspecified; F32.9 Major depressive disorder, single episode, unspecified; Z90.49 Acquired absence of other specified parts of digestive tract; Z96.653 Presence of artificial knee joint, bilateral; Z90.79 Acquired absence of other genital organ(s); F17.290 Nicotine dependence, other tobacco product, uncomplicated; Z96.89 Presence of other specified functional implants; Z79.899 Other long term (current) drug therapy; Z88.0 Allergy status to penicillin; Z88.8 Allergy status to other drugs, medicaments and biological substances; Z88.1 Allergy status to other antibiotic agents; R74.0 Nonspecific elevation of levels of transaminase and lactic acid dehydrogenase [LDH]; J43.9 Emphysema, unspecified

== ENCOUNTER 2019-10-15 08:50 | Inpatient (IN) | payer MEDICARE, MEDICAID ==
[~2019-10-15] VITALS: Ht 157.5 cm; Wt 58.3 kg
[~2019-10-15 08:50] MED LIST changes: +ACET-897 PO; +ATOR1TAB21 PO; +FAMO20TA PO; +PANT-23 PO
[2019-10-20] MEDS ORDERED: PERCOCET 5MG/325MG TAB PO PRN ×2 (14:00)
[2019-10-20] MEDS ORDERED: NALOXONE INJ 0.4 MG/1 ML VIAL (J2310) IV PRN (14:00)
[2019-10-20] MEDS ORDERED: MORPHINE 4 MG/ML 1ML VIAL/SYRINGE (J2270) IV ONE (14:30)
[2019-10-20 14:58] LABS: BASO # 0.1 10^3/uL (0.0-0.2); BASO % 0.4 % (0.0-1.0); EOS # 0.1 10^3/uL (0.0-0.5); HEMATOCRIT 25.1 % (36.0-47.0); HEMOGLOBIN 7.8 g/dl (12.0-15.5); LYMPH # 1.5 10^3/uL (1.5-5.0); LYMPH % 10.6 % (24.0-44.0); MEAN CORPUSCULAR HGB CONC 31.1 g/dl (32.0-36.5); MEAN CORPUSCULAR VOLUME 96.5 fl (80.0-96.0); MONO % 7.3 % (0.0-5.0); NEUTROPHILS # 10.9 10^3/uL (1.5-8.5); NEUTROPHILS % 79.6 % (36.0-66.0); PLATELET COUNT, AUTOMATED 324 10^3/uL (150-450); WHITE BLOOD COUNT 13.7 10^3/uL (4.0-10.0)
[2019-10-20] MEDS ORDERED: DOCU5LIQ PO (15:11)
[2019-10-20] MEDS ORDERED: METO1TAB87 PO (15:11)
[2019-10-20] MEDS ORDERED: GABA-843 PO (15:11)
[2019-10-20] MEDS ORDERED: FLOR250C PO (15:11)
[2019-10-20] MEDS ORDERED: SENN8.8S5 PO (15:11)
[2019-10-20] MEDS ORDERED: ASPI81CH48 PO (15:11)
[2019-10-20] MEDS ORDERED: PANT-23 PO (15:11)
[2019-10-20] MEDS ORDERED: OXYC-517 PO (15:11)
[2019-10-20] MEDS ORDERED: MEGE40TA PO (15:11)
[2019-10-20] MEDS ORDERED: APAP325T4 PO (15:15)
[2019-10-20 15:21] LABS: ALBUMIN 1.5 GM/DL (3.2-5.2); ALT/SGPT 11 U/L (12-78); BILIRUBIN,TOTAL 0.3 MG/DL (0.2-1.0); BLOOD UREA NITROGEN 9 MG/DL (7-18); CALCIUM LEVEL 7.7 MG/DL (8.8-10.2); CARBON DIOXIDE LEVEL 27 MEQ/L (21-32); CHLORIDE LEVEL 107 MEQ/L (98-107); CREATININE FOR GFR 0.49 MG/DL (0.55-1.30); GLOMERULAR FILTRATION RATE > 60.0 (>45); GLUCOSE, FASTING 87 MG/DL (70-100); POTASSIUM SERUM 3.8 MEQ/L (3.5-5.1); SODIUM LEVEL 137 MEQ/L (136-145); TOTAL PROTEIN 6.8 GM/DL (6.4-8.2)
[2019-10-20] MEDS ORDERED: CYCL5TAB PO (15:22)
[2019-10-20] MEDS ORDERED: AUGM500T34 PO (15:22)
[2019-10-20] MEDS ORDERED: TUMS500C PO (15:22)
[2019-10-20 15:23] LABS: ERYTHROCYTE SEDIMENTATION RATE 129 mm/hr (0-30)
[2019-10-20] MEDS ORDERED: MAGN400T2 PO (15:27)
[2019-10-20] MEDS ORDERED: CALCIUM CARBONATE 500 MG CHEW U/D PO PRN (16:45)
[2019-10-20] MEDS: GABAPENTIN 300 MG CAP PO SCH ×2 (17:39→21:58)
[2019-10-20] MEDS: MORPHINE 4 MG/ML 1ML VIAL/SYRINGE (J2270) IV PRN (18:51)
[2019-10-20] MEDS: CYCLOBENZAPRINE 5MG TABLET PO PRN (18:58)
[2019-10-20 19:21] LABS: IRON (FE) 21 UG/DL (50-170); PERCENT SATURATION 13.4 % (13.2-45.0); TOTAL IRON BINDING CAPACITY 157 UG/DL (250-450)
[2019-10-20] MEDS: METOPROLOL TART 25 MG TABLET PO SCH (21:57)
[2019-10-20] MEDS: MAGNESIUM OXIDE 400 MG TAB (MAG-OX) PO SCH (21:58)
[2019-10-20] MEDS: AUGMENTIN 875 MG TAB PO SCH (21:58)
[2019-10-20 22:00] VITALS: BP 182/94
[2019-10-20] MEDS: ACETAMINOPHEN TAB 650MG DOSE (2X325MG) PO PRN (22:05)
[2019-10-20] MEDS: oxyCODONE 5MG TAB PO PRN (22:25)
[2019-10-21 00:45] LABS: HEMATOCRIT 25.5 % (36.0-47.0); HEMOGLOBIN 8.1 g/dl (12.0-15.5)
[2019-10-21] MEDS: MORPHINE 4 MG/ML 1ML VIAL/SYRINGE (J2270) IV PRN ×3 (00:45→15:11)
[2019-10-21 06:00] VITALS: BP 165/81
[2019-10-21] MEDS: oxyCODONE 5MG TAB PO PRN ×4 (06:09→20:38)
[2019-10-21 06:36] LABS: HEMATOCRIT 24.5 % (36.0-47.0); HEMOGLOBIN 7.8 g/dl (12.0-15.5); MEAN CORPUSCULAR HEMOGLOBIN 30.8 pg (27.0-33.0); MEAN CORPUSCULAR HGB CONC 31.8 g/dl (32.0-36.5); MEAN CORPUSCULAR VOLUME 96.8 fl (80.0-96.0); PLATELET COUNT, AUTOMATED 308 10^3/uL (150-450); RED BLOOD COUNT 2.53 10^6/uL (4.00-5.40); WHITE BLOOD COUNT 14.7 10^3/uL (4.0-10.0)
[2019-10-21 07:05] LABS: BLOOD UREA NITROGEN 6 MG/DL (7-18); CALCIUM LEVEL 7.5 MG/DL (8.8-10.2); CARBON DIOXIDE LEVEL 25 MEQ/L (21-32); CHLORIDE LEVEL 105 MEQ/L (98-107); CREATININE FOR GFR 0.43 MG/DL (0.55-1.30); GLOMERULAR FILTRATION RATE > 60.0 (>45); GLUCOSE, FASTING 65 MG/DL (70-100); POTASSIUM SERUM 3.8 MEQ/L (3.5-5.1); SODIUM LEVEL 135 MEQ/L (136-145)
[2019-10-21] MEDS: DOCUSATE SOD LIQ 100MG/10ML UDC PO SCH (08:57)
[2019-10-21] MEDS: CYCLOBENZAPRINE 5MG TABLET PO PRN (09:08)
[2019-10-21] MEDS: ATORVASTATIN 20 MG TAB PO SCH (09:08)
[2019-10-21] MEDS: AUGMENTIN 875 MG TAB PO SCH ×2 (09:08→20:29)
[2019-10-21] MEDS: PANTOPRAZOLE 40MG TAB (PROTONIX) PO SCH (09:09)
[2019-10-21] MEDS: ASPIRIN 81 MG CHEW TABLET PO SCH (09:09)
[2019-10-21] MEDS: GABAPENTIN 300 MG CAP PO SCH ×3 (09:09→20:28)
[2019-10-21] MEDS: METOPROLOL TART 25 MG TABLET PO SCH ×2 (09:10→20:28)
[2019-10-21] MEDS: MEGESTROL 40 MG TAB PO SCH (09:11)
--- NOTE | 2019-10-21 09:17 | IPNPDOC ---
Subjective Date Seen The patient was seen on 10/21/19. Subjective Chief Complaint/HPI No H & P available. Pt returned from [facility] 10/19 to [facility] after undergoing exp lap x2 for mesenteric ischemia with aortoceliax and aorto SMA branched bypass, then later that day hematoma washout and repair of SB enterotomy, the following day open wash out and closure, then on 10/07 after unsuccessful angioplasty and thrombectomy of the RLE she underwent R AKA. On the day of DC she was noted to have elevated WBC and was pancultured, the BC were repeated on admission to [facility]. Per her DC summary UA was postive as well as Urine Culture, but the organism isn't avaiable she was started on Augmentin. This morning she reports that she is feeling lousy, but this is the same as she has felt for some time. She feels her pain is adequately controlled, she denies N/V. Breathing is fine. General: Reports: Fatigue Constitutional: Denies: Chills, Fever ENT: Denies: Head Aches Pulmonary: Denies: Dyspnea, Cough Cardiovascular: Denies: Chest Pain, Palpitations Gastrointestinal: Reports: Abdominal Pain; Denies: Nausea, Vomiting, Diarrhea Neurological: Reports: Weakness Psych: Reports: Mood Normal Objective Physical Examination General Exam: Positive: Alert, No Acute Distress ENT Exam: Positive: Mucous membr. moist/pink Chest Exam: Positive: Clear to auscultation, Diminished Heart Exam: Positive: Rate Normal, Regular Rhythm; Negative: Normal S1, Normal S2 Abdomen Exam: Negative: Normal bowel sounds, Soft, Tenderness Extremity Exam: Negative: Edema Skin Exam: Negative: Nl turgor and temperature Neuro Exam: Positive: Normal Speech Psych Exam: Positive: Mental status NL, Mood NL Assessment /Plan Problems (1) UTI (urinary tract infection) Status: Acute Problem Specific Plan: Monitor Clinically Problem Text: Will need to obtain final cultures results from [facility]. Currently on Augmentin. (2) S/P AKA (above knee amputation) unilateral Problem Specific Plan: Monitor Clinically Problem Text: 10/07/2019 Wound appears clean and dry. (3) Anemia Status: Chronic Problem Text: Admitted with Hgb 7.8, substantially lower than on DC 09/21/2019, hwowver pt has undergone mtp major surgeries, will need close f/u. Transfuse if less than 7.5 (4) Chronic mesenteric ischemia Status: Chronic Response to Treatment: Stable Problem Specific Plan: Monitor Clinically Problem Text: S/p aortocelia and aorto SMA branched bypass 09/23/2019 (5) HTN (hypertension) Status: Chronic Response to Treatment: Stable Problem Specific Plan: Monitor Clinically Plan/VTE VTE Prophylaxis Ordered?: Yes VS, I&O, 24H, Fishbone Vital Signs/I&O Vital Signs Date Time Temp Pulse Resp B/P (MAP) Pulse Ox O2 Delivery O2 Flow Rate FiO2 10/21/19 06:39 18 Nasal Cannula 1.0 10/21/19 06:00 98.9 92 165/81 (109) 94 I&O- Last 24 Hours up to 6 AM 10/21/19 06:00 Intake Total 1260 ml Balance 1260 ml Laboratory Data 24H LABS Laboratory Tests 2 10/20/19 14:39: Immature Granulocyte % (Auto) 1.1, Neutrophils (%) (Auto) 79.6H, Lymphocytes (%) (Auto) 10.6L, Monocytes (%) (Auto) 7.3H, Eosinophils (%) (Auto) 1.0, Basophils (%) (Auto) 0.4, Neutrophils # (Auto) 10.9H, Lymphocytes # (Auto) 1.5, Monocytes # (Auto) 1.0H, Eosinophils # (Auto) 0.1, Basophils # (Auto) 0.1, Reticulocyte # (auto) 47.9, Nucleated Red Blood Cells % (auto) 0.0, Erythrocyte Sedimentation Rate 129H, Percent Reticulocyte Count 1.9H, Reticulocyte Hemoglobin Equivalent 29.2, Anion Gap 3L, Glomerular Filtration Rate > 60.0, Lactic Acid Level 0.7, Calcium Level 7.7L, Iron Level 21L, Total Iron Binding Capacity 157L, Transferrin % Saturation 13.4, Total Bilirubin 0.3, Aspartate Amino Transf (AST/SGOT) 13, Alanine Aminotransferase (ALT/SGPT) 11L, Alkaline Phosphatase 203H, C-Reactive Protein, Quantitative 15.40H, Total Protein 6.8, Albumin 1.5L, Albumin/Globulin Ratio 0.28L 10/20/19 15:06: Methicillin-Resist S.aureus DNA PCR NOT DETECTED 10/20/19 23:59: Ferritin 732H 10/21/19 05:29: Nucleated Red Blood Cells % (auto) 0.0, Anion Gap 5L, Glomerular Filtration Rate > 60.0, Calcium Level 7.5L CBC/BMP Laboratory Tests 10/20/19 14:39 10/20/19 23:59 10/21/19 05:29 Microbiology Microbiology 10/20/19 Respiratory Virus Panel (PCR) (JOCELYN) - Final, Complete 10/20/19 Blood Culture, Received Pending 10/20/19 Blood Culture, Received Pending KENISHA LOPEZ PA-C Oct 21, 2019 09:17
[2019-10-21 14:00] VITALS: BP 146/73
--- NOTE | 2019-10-21 14:13 | HPE ---
DATE OF ADMISSION: 10/20/2019 PRIMARY CARE PHYSICIAN: Lynsey Schulte D.O. CHIEF COMPLAINT: Transferred from [facility] where she was sent for vascular services due to a mesenteric ischemia. HISTORY OF PRESENTING ILLNESS: This is a 69-year-old female with history significant for peripheral vascular disease, deep venous thrombosis (DVT), chronic mesenteric ischemia due to superior mesenteric artery (SMA) stenosis, tobacco abuse, hypertension, chronic abdominal pain, left lower extremity vascular bypass, aortofemoral bypass graft, dyslipidemia, formerly on Coumadin 2005 for DVT, recently discharged after being admitted to [facility] under [facility] on 09/20/2019 to 10/15/2019. She was sent to [facility] for vascular services. Despite bowel rest, intravenous (IV) antibiotics, patient continued to worsen and was subsequently transferred. She underwent a mesenteric angiogram on 09/22/2019 and was monitored in the intensive care unit (ICU) with worsening symptoms. Underwent an exploratory laparotomy with mesenteric angiogram, aorta celiac, aorta SMA branch bypass with placement of ABThera, complicated by hypotension, hypertensive shock, requiring vasopressors and remained intubated postoperatively. Patient subsequently developed a hematoma and underwent an enterotomy at the proximal bowel, returned to the operating room (OR) on 09/24/2019 for a washout and closure of the abdomen and remained mechanically ventilated. Repeat CT showed occlusion of the external iliac, common femoral and subsequently underwent a right lower extremity angiogram, a right external iliac artery (EIA) and common femoral artery (CAREER DEVELOPMENT FACILITATOR) angioplasty, right lower extremity (LE) thrombectomy, with compartment syndrome of the right leg and taken emergently for a fasciotomy. On 09/30/2019, she had a significant amount of drainage in the abdominal incision and was found to have an incisional dehiscence and taken to the OR for closure with a mesh. She was successfully extubated on 10/01/2019. Due to a decreased strength of the right leg and persistent ischemia, patient opted for a right tyjip-xov-slwv amputation versus debridement. She then developed a white count and was found to have positive urinalysis (UA) and was treated with Zosyn and Flagyl and was discharged to [facility] on 10/20/2019 on Augmentin. Patient complains currently of 10/10 pain in the abdomen and in the stump. Patient has had no drainage at the abdominal wound. Drainage site on the left appears well-healed. The one on the right shows some serous drainage. Rose were removed yesterday per the patient of the midabdominal incision. She was afebrile with white count of 13,000, hemoglobin of 7, hematocrit of 25. Hospitalist was asked to admit for [facility]. PAST MEDICAL HISTORY: 1. Peripheral vascular disease. 2. Chronic mesenteric ischemia. 3. Superior mesenteric artery occlusion. 4. Peripheral vascular disease status post stenting. 5. Aortofemoral bypass graft. 6. Hypertension. 7. Coronary artery disease (CAD). 8. Depression. 9. Psoriasis. 10. Hepatic steatosis. 11. Deep venous thrombosis, 2014 and 2015, took Coumadin previously. 12. Osteoporosis with compression fractures T11-T12, L1-L2 and L3-L4. 13. Dyslipidemia. PAST SURGICAL HISTORY: 1. Bilateral total knee arthroplasties. 2. Two (C) sections. 3. Hysterectomy. 4. Laparoscopic cholecystectomy December 2018. 5. Endoscopic retrograde cholangiopancreatography (ERCP). 6. Stents in the superior mesenteric artery September 2019. 7. Right nzsqu-qwu-xksi amputation (AKA). 8. Abdominal closure. 9. Right lower extremity fasciotomy angiogram. 10. Right external iliac artery and common femoral artery angioplasty. 11. Right lower extremity thrombectomy. 12. Abdominal washout and closure. 13. Exploratory laparotomy hematoma washout and repair.. 14. Small bowel enterotomy. 15. Exploratory laparotomy mesenteric angiogram, aorta celiac and aorta superior mesenteric artery branch bypass placement of an ABThera mesenteric angiogram. CURRENT MEDICATIONS: - saccharomyces capsule 250 mg daily - acetaminophen 650 mg every 4 hours as needed - Augmentin 500/125 mg one tablet twice a day - aspirin 81 mg daily - atorvastatin 20 mg daily - calcium 2 mg tablets 1 gram twice a day as needed for gas pain - cyclobenzaprine 5 mg twice a day as needed for muscle spasms - Colace 100 mg daily - gabapentin 300 mg three times a day - magnesium oxide 400 mg every evening - Magestrol 160 mg daily - metoprolol 25 mg twice a day - oxycodone 5 mg every 4 hours as needed for pain - Protonix 40 mg daily ALLERGIES: PENICILLIN, ASPIRIN, IRON, VANCOMYCIN. SOCIAL HISTORY: Prior smoker, quit in 2018, previously smoked a pack a day for about 40 years. No illegal drug use. . Has one child. No alcohol use. Patient is DO NOT RESUSCITATE, trial of intubation. FAMILY HISTORY: Positive cancer, CAD. PHYSICAL EXAMINATION: VITAL SIGNS: No temperature was noted. Respiratory rate 18. No blood pressure noted. GENERAL: Awake, alert, oriented to person, place and time. Answering questions appropriately. No jugular venous distention (JVD). No thyromegaly. No cervical lymphadenopathy. Dry mucous membranes. LUNGS: Diminished breath sounds. No rales. Wheezing noted. HEART: S1, S2. Sinus rhythm. Regular rate and rhythm. No murmurs, rubs or gallops. ABDOMEN: Soft. Midline incision. Clean, dry, slightly tender. No erythema. No purulent drainage. Positive bowel sounds all four quadrants. Left lower extremity Henri-Gonzalez (BRIGITTE) drain site is clean and dry, closed. Right appears to have some serous drainage. EXTREMITIES: Right AKA stump incision with no drainage. Some warmth to touch. Thayne in color. No erythema. Slightly tender. LABORATORY DATA: White count 13.7, hemoglobin 7.8, hematocrit 25, platelet count 324, 79% neutrophils. Sedimentation rate of 129. Sodium 137, potassium 3.8, chloride 107, bicarbonate 27, BUN 9, creatinine 0.49, glucose 87, lactic acid 0.7, calcium 7.7. CRP of 15. Total bilirubin 0.3, AST 13, ALT 11, total protein 6.8, albumin of 1.5. Procalcitonin pending. Respiratory panel negative. Blood cultures pending. Urinalysis pending sample. ASSESSMENT AND PLAN: This is a 69-year-old female transferred from [facility] where she was sent on 09/21/2019 for mesenteric ischemia, underwent exploratory laparotomy mesenteric angiogram bypass, aorta celiac, aorta SMA branch, placement of an ABThera, abdominal washout and closure, complicated by compartment syndrome, right lower extremity critical limb ischemia, status post angiogram, right EIA and CAREER DEVELOPMENT FACILITATOR angioplasty and right lower extremity thrombectomy with fasciotomy, as well as a right AKA on 10/07/2019. Patient also had a urinary tract infection (UTI) prior to hospital discharge at [facility] and was on Augmentin on hospital transfer to [facility]. CURRENT ISSUES: 1. Chronic mesenteric ischemia status post angioplasty with right lower extremity fasciotomy angiogram, EIA and CAREER DEVELOPMENT FACILITATOR angioplasty of right lower extremity, abdominal washout with mesenteric angiogram, aorta celiac, aorta SMA branch bypass and placement of ABThera. Patient is continued on aspirin. Monitor for any hematoma or ongoing bleeding. Currently with an hemoglobin and hematocrit (H and H) of 7.8. Will cycle Hemoglobin and hematocrit (H and H) every 6 hours. Transfuse as needed and re-image abdomen if there are any signs of bleeding. 2. Urinary tract infection (UTI) present on readmission. At this time, urinalysis (UA) has been reordered to track for resolution. UTI was present at [facility], where she had been treated with Augmentin. 3. Peripheral vascular disease. Continued on aspirin and Lipitor. Monitor for any signs of ongoing bleeding. 4. Right lower extremity AKA secondary to compartment syndrome status post right lower extremity thrombectomy and angioplasty with fasciotomy due to compartment syndrome. Acute rehabilitation unit (ARU) evaluation. She is continued on Lipitor, aspirin. Monitor for bleeding. Pain control with as needed oxycodone IR every 4 hours and morphine for breakthrough pain. 5. Postoperative anemia. Patient will be monitored for any ongoing bleeding. Repeat hemoglobin and hematocrit (H and H). Type and screen. Check hemoglobin, stool, iron studies. Transfuse as needed. 6. Hypertension. Resumed on her home medications, metoprolol 25 mg twice a day. 7. CODE STATUS: Patient is DO NOT RESUSCITATE with trial of intubation. The patient has been signed out to Dr. Torin Fournier.
[2019-10-21] MEDS: MAGNESIUM OXIDE 400 MG TAB (MAG-OX) PO SCH (20:28)
[2019-10-21 22:00] VITALS: BP 161/78
[2019-10-21] MEDS: ACETAMINOPHEN TAB 650MG DOSE (2X325MG) PO PRN (23:50)
[2019-10-22] VITALS (8 sets, daily range): BP systolic 143–165; BP diastolic 52–81
[2019-10-22] MEDS: MORPHINE 4 MG/ML 1ML VIAL/SYRINGE (J2270) IV PRN ×2 (00:41→14:12)
[2019-10-22] MEDS: CYCLOBENZAPRINE 5MG TABLET PO PRN ×2 (03:44→20:15)
[2019-10-22] MEDS: ACETAMINOPHEN TAB 650MG DOSE (2X325MG) PO PRN (05:59)
[2019-10-22 06:01] LABS: HEMATOCRIT 25.3 % (36.0-47.0); HEMOGLOBIN 7.9 g/dl (12.0-15.5); MEAN CORPUSCULAR HEMOGLOBIN 29.8 pg (27.0-33.0); MEAN CORPUSCULAR HGB CONC 31.2 g/dl (32.0-36.5); MEAN CORPUSCULAR VOLUME 95.5 fl (80.0-96.0); PLATELET COUNT, AUTOMATED 330 10^3/uL (150-450); RED BLOOD COUNT 2.65 10^6/uL (4.00-5.40); WHITE BLOOD COUNT 16.2 10^3/uL (4.0-10.0)
[2019-10-22] MEDS: oxyCODONE 5MG TAB PO PRN ×3 (06:07→18:42)
[2019-10-22 06:17] LABS: BLOOD UREA NITROGEN 6 MG/DL (7-18); CALCIUM LEVEL 7.8 MG/DL (8.8-10.2); CARBON DIOXIDE LEVEL 26 MEQ/L (21-32); CHLORIDE LEVEL 105 MEQ/L (98-107); CREATININE FOR GFR 0.42 MG/DL (0.55-1.30); GLOMERULAR FILTRATION RATE > 60.0 (>45); GLUCOSE, FASTING 94 MG/DL (70-100); MAGNESIUM LEVEL 1.7 MG/DL (1.8-2.4); SODIUM LEVEL 135 MEQ/L (136-145)
--- NOTE | 2019-10-22 07:56 | REP ---
Portable chest x-ray: Single view. History: Recent invasive procedure. Comparison chest x-ray September 21, 2019. Findings: The oxygen delivery tubing is seen. The lungs are symmetrically aerated. There is no evidence of pneumothorax or hydrothorax. Mediastinum is not widened. The heart is normal in size unchanged. Pulmonary vasculature is not increased. There are old rib fractures on the right. Old post-traumatic deformity is seen in the humeral head on the left. Impression: No acute disease. Electronically Signed by Everardo Tripp MD 10/22/2019 07:47 A
[2019-10-22] MEDS ORDERED: ISOVUE-370 76% 100ML VIAL (Q9967) As Ordered ONE (08:13)
[2019-10-22] MEDS: PANTOPRAZOLE 40MG TAB (PROTONIX) PO SCH (09:00)
[2019-10-22] MEDS: DOCUSATE SOD LIQ 100MG/10ML UDC PO SCH (09:00)
[2019-10-22] MEDS: ASPIRIN 81 MG CHEW TABLET PO SCH (09:03)
[2019-10-22] MEDS: MEGESTROL 40 MG TAB PO SCH (09:03)
[2019-10-22] MEDS: AUGMENTIN 875 MG TAB PO SCH (09:03)
[2019-10-22] MEDS: ATORVASTATIN 20 MG TAB PO SCH (09:03)
[2019-10-22] MEDS: GABAPENTIN 300 MG CAP PO SCH ×3 (09:04→20:06)
[2019-10-22] MEDS: METOPROLOL TART 25 MG TABLET PO SCH ×2 (09:04→20:06)
--- NOTE | 2019-10-22 09:39 | REP ---
CT abdomen and pelvis with IV but without oral contrast: History: Recent invasive procedure. Comparison CT study September 20, 2019. Comparison MR angiography September 21, 2019. Apparently, the patient has recently undergone aorto-celiac and aorto-SMA branch bypass graft surgery complicated by hematoma. Recent history of external iliac, common femoral occlusion with angioplasty. CT contrast dose: 100 mL of intravenous Isovue 370. CT findings: Preliminary digital mess attendant radiographs demonstrate a right bmcat-slb-wtfx amputation. There is a biliary stent in place. Vascular stents are noted in the left pelvis. The bowel gas pattern is unremarkable on digital mess attendant radiograph. Axial CT images of the lung bases demonstrate small bilateral pleural effusions and bibasilar atelectasis in the lower lobes. There is an upper abdominal perivascular hematoma centered around the operative site in the aorto-celiac, aorto-SMA graft anastomosis. This hematoma is fairly large measuring 8.9 cm in anteroposterior dimension by 7.0 cm in greatest right to left dimension by 10 cm in greatest craniocaudal length. There are curvilinear metallic structures within the hematoma consistent with suture material. The hematoma extends to the diaphragmatic hiatus adjacent to the distal esophagus. There is some anterior displacement of the stomach and there is mass effect on the superior border of the pancreas. The graft anastomoses appears patent. No active extravasation is seen. The anastomosis feeds celiac artery branches and is seen connecting with an irregular segment of mid SMA. There is some edema in the root of the small bowel mesentery surrounding the mesenteric vessels. The superior mesenteric vein and portal vein are patent. The splenic vein is patent. Splenic artery is patent. There is a small accessory splenule. No adrenal lesion is seen. There is a small wedge-shaped defect in the upper pole of the left kidney posterior cortex consistent with a small left renal infarction. This is new from September 20, 2019. There are bilateral renal cysts, the largest of which is a lower pole cyst on the right measuring 4.2 cm in greatest diameter. These are unchanged from September 20, 2019. A biliary stent is seen in place in the common bile duct and there is mild pneumobilia. There are edematous changes in the anterior abdominal wall consistent with postoperative changes. There is subcutaneous edema in the extra abdominal flank subcutaneous fat as well. There is no evidence of free intraperitoneal air. Urinary bladder is intact. Uterus is surgically absent. No gastrointestinal obstructive lesion is seen. There is fluid and stool throughout the colon. Mild mural edema is seen in small bowel loops in the central abdomen. No free air is seen. Impression: Status post visceral artery grafting involving the celiac axis and superior mesenteric artery with a surrounding upper abdominal retroperitoneal hematoma as described above measuring 10 cm in greatest diameter. There is a small left upper pole renal infarction. Small bilateral pleural effusions are noted. Biliary stent is again seen in place. Mild mural thickening is seen in several small bowel loops. No obstructive lesion. No evidence of free air. Postop changes in the anterior abdominal wall. Electronically Signed by Everardo Tripp MD 10/22/2019 09:39 A
[2019-10-22] MEDS: CEFTAROLINE FOSAMIL 600 MG in D5W MINI-BAG PLUS 50 ML IV SCH ×2 (12:16→23:58)
--- NOTE | 2019-10-22 12:42 | REP ---
Duplex extremity venous ultrasound: Right lower extremity. History: Question DVT. 3-week status post Dujfw-ues-hsnf amputation. Findings: The deep veins are anechoic and fully compressible from the groin to the popliteal fossa in the right lower extremity. Color flow imaging is homogeneous. Spectral Doppler interrogation demonstrates intact respiratory variation in flow and normal manual augmentation of flow. There is no evidence of deep vein thrombosis. The popliteal vein visualization is somewhat limited due to the patient's mzdcf-kay-iobd amputation. Impression: Negative right lower extremity duplex venous ultrasound. No evidence of deep vein thrombosis. Electronically Signed by Everardo Tripp MD 10/22/2019 12:33 P
[2019-10-22] MEDS: metroNIDAZOLE 500 MG in IV 1 EA IV SCH ×2 (13:17→20:05)
[2019-10-22] MEDS: ENOXAPARIN 40 MG/0.4 ML SYRINGE (J1650) SC SCH (13:17)
--- NOTE | 2019-10-22 13:25 | IPNPDOC ---
Subjective Date Seen The patient was seen on 10/22/19. Subjective Chief Complaint/HPI abdominal discomfort and right thigh discomfort. Constitutional: Denies: Chills Skin: Denies: Rash Pulmonary: Denies: Dyspnea, Cough Cardiovascular: Denies: Chest Pain, Palpitations Gastrointestinal: Reports: Abdominal Pain; Denies: Nausea Genitourinary: Denies: Dysuria Hematologic: Denies: Bruising Neurological: Denies: Weakness Psych: Reports: Mood Normal Objective Physical Examination General Exam: Positive: Alert, No Acute Distress Eye Exam: Positive: PERRLA; Negative: Sclera icteric ENT Exam: Positive: Mucous membr. moist/pink Chest Exam: Positive: Clear to auscultation, Diminished Heart Exam: Positive: Rate Normal, Regular Rhythm; Negative: Normal S1, Normal S2 Abdomen Exam: Positive: Normal bowel sounds (normal bowel sounds today. took her meal w/o difficulty.), Tenderness (tender especially across left mid and upper abdomen.); Negative: Soft Extremity Exam: Positive: Tenderness (right medial thigh.); Negative: Edema Skin Exam: Negative: Nl turgor and temperature Neuro Exam: Positive: Normal Speech Psych Exam: Positive: Mental status NL, Mood NL Assessment /Plan Problems (1) Fever Status: Acute Response to Treatment: Stable Problem Text: multiple possible sources: post op abdomen if her graft is infected she will not do well; pleural effusion, will monitor after start of Rx. also recent UTI. blood cultures repeated. change abx to ceftaroline plus metr onidazole. (2) UTI (urinary tract infection) Status: Acute Problem Specific Plan: Monitor Clinically Problem Text: 10/21: due to recurrent fever, elevated WBC, antibiotic changed to ceftaroline plus metronidazole. Will need to obtain final cultures results from [facility]. Currently on Augmentin. (3) S/P AKA (above knee amputation) unilateral Problem Specific Plan: Monitor Clinically Problem Text: 10/21: wound healing well, no redness, no dehiscence, no oozing. tender along medial upper thigh, no redness or induration 10/07/2019 Wound appears clean and dry. (4) Anemia Status: Chronic Problem Text: Admitted with Hgb 7.8, substantially lower than on DC 09/21/2019, hwowver pt has undergone mtp major surgeries, will need close f/u. Transfuse if less than 7.5 (5) Chronic mesenteric ischemia Status: Chronic Response to Treatment: Stable Problem Specific Plan: Monitor Clinically Problem Text: 10/21: surgery was complicated by hematoma in small bowel and repeat trip to OR. has hematoma on CT. Will ask Dr. Stein to see to help evaluate her tender abdomen and rising wbc. At this point she has been denied DVT prophylaxis, likely because of the post op hematoma, but graft function would be lost if she thromboses so DVT prophylaxis will be resumed. 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 (6) HTN (hypertension) Status: Chronic Response to Treatment: Stable Problem Specific Plan: Monitor Clinically (7) Pleural effusion Status: Acute Response to Treatment: Stable Problem Text: noted on abdominal CT. some compressive atelectasis. possible source of fever along with intraabdominal process. Plan/VTE VTE Prophylaxis Ordered?: Yes VS, I&O, 24H, Fishbone Vital Signs/I&O Vital Signs Date Time Temp Pulse Resp B/P (MAP) Pulse Ox O2 Delivery O2 Flow Rate FiO2 10/22/19 11:42 24 10/22/19 09:06 1.0 10/22/19 09:04 94 145/69 10/22/19 06:37 95 Nasal Cannula 10/22/19 06:30 98.0 I&O- Last 24 Hours up to 6 AM0 10/22/19 06:00 Intake Total 830 ml Balance 830 ml Laboratory Data 24H LABS Laboratory Tests 2 10/22/19 05:27: Nucleated Red Blood Cells % (auto) 0.0 10/22/19 05:28: Anion Gap 4L, Glomerular Filtration Rate > 60.0, Calcium Level 7.8L, Magnesium Level 1.7L 10/22/19 09:10: Urine Color YELLOW, Urine Appearance CLEAR, Urine pH 8.0, Urine Specific [place] 1.006, Urine Protein NEGATIVE, Urine Glucose (UA) NEGATIVE, Urine Ketones NEGATIVE, Urine Blood 3+H, Urine Nitrite NEGATIVE, Urine Bilirubin NEGATIVE, Urine Urobilinogen 0.2, Urine Leukocyte Esterase TRACEH, Urine WBC (Auto) 3, Urine RBC (Auto) 9H, Urine Hyaline Casts (Auto) 0, Urine Bacteria (Auto) 1+H, Urine Squamous Epithelial Cells 1, Urine Sperm (Auto) CBC/BMP Laboratory Tests 10/22/19 05:27 10/22/19 05:28 Microbiology Microbiology 10/22/19 Blood Culture, Received Pending 10/22/19 Blood Culture, Received Pending 10/22/19 Urine Culture, Received Pending 10/20/19 Respiratory Virus Panel (PCR) (JOCELYN) - Final, Complete 10/20/19 Blood Culture - Preliminary, Resulted No growth after 24 hours . All specim... 10/20/19 Blood Culture - Preliminary, Resulted No growth after 24 hours . All specim... Floyd Edwards MD Oct 22, 2019 13:25
[2019-10-22] MEDS: MAGNESIUM OXIDE 400 MG TAB (MAG-OX) PO SCH (20:06)
[2019-10-23] MEDS: metroNIDAZOLE 500 MG in IV 1 EA IV SCH ×3 (04:29→20:55)
[2019-10-23] MEDS: ACETAMINOPHEN TAB 650MG DOSE (2X325MG) PO PRN (05:20)
[2019-10-23] MEDS: oxyCODONE 5MG TAB PO PRN ×4 (05:53→20:54)
[2019-10-23 06:00] VITALS: BP 167/79
[2019-10-23 06:25] VITALS: BP 144/76
[2019-10-23 06:36] LABS: BASO % 0.2 % (0.0-1.0); EOS # 0.1 10^3/uL (0.0-0.5); EOS % 0.9 % (0.0-3.0); HEMATOCRIT 24.8 % (36.0-47.0); HEMOGLOBIN 7.9 g/dl (12.0-15.5); LYMPH # 1.7 10^3/uL (1.5-5.0); LYMPH % 10.5 % (24.0-44.0); MEAN CORPUSCULAR HEMOGLOBIN 30.2 pg (27.0-33.0); MEAN CORPUSCULAR HGB CONC 31.9 g/dl (32.0-36.5); MEAN CORPUSCULAR VOLUME 94.7 fl (80.0-96.0); MONO # 1.3 10^3/uL (0.0-0.8); MONO % 8.2 % (0.0-5.0); PLATELET COUNT, AUTOMATED 318 10^3/uL (150-450); RED BLOOD COUNT 2.62 10^6/uL (4.00-5.40); WHITE BLOOD COUNT 16.4 10^3/uL (4.0-10.0)
[2019-10-23 06:57] LABS: BLOOD UREA NITROGEN 5 MG/DL (7-18); CALCIUM LEVEL 7.6 MG/DL (8.8-10.2); CARBON DIOXIDE LEVEL 25 MEQ/L (21-32); CHLORIDE LEVEL 105 MEQ/L (98-107); CREATININE FOR GFR 0.38 MG/DL (0.55-1.30); GLOMERULAR FILTRATION RATE > 60.0 (>45); GLUCOSE, FASTING 109 MG/DL (70-100); POTASSIUM SERUM 3.7 MEQ/L (3.5-5.1); SODIUM LEVEL 134 MEQ/L (136-145)
--- NOTE | 2019-10-23 07:10 | CR ---
DATE OF CONSULTATION: 10/22/2019 REASON FOR CONSULTATION: Recent vascular surgery with complicated surgical history and recent transfer from [place] back to [place]. HISTORY OF THE PRESENT ILLNESS: The patient is a 69-year-old woman who has apparently had a history of some upper abdominal pain attributed to chronic mesenteric ischemia for about a year. She had undergone a cholecystectomy in December of 2018 for cholelithiasis. She was in again for increased upper abdominal pain in July and had some mild elevations of her SGOT and SGPT. She underwent evaluation with an magnetic resonance cholangiopancreatography (MRCP) that suggested a stone in the distal common bile duct. She was transferred to [place] because of the lack of GI coverage at the time and underwent an endoscopic retrograde cholangiopancreatography (ERCP) with placement of a bile duct stent. She was admitted at [facility] on the space scheduler of 09/20/2019 after presenting with severe upper abdominal pain. She was found to have a marked elevation of her white blood cell count. She was seen by surgery and gastroenterology. It was felt that her symptoms were most consistent with mesenteric ischemia and she was transferred urgently to [facility]. In [place], she underwent an attempted mesenteric angiogram apparently without success. On 09/23/2019, she had an exploratory laparotomy with a mesenteric angiogram. Subsequently, a branched aortic bypass was placed with one branch being connected to the celiac system and the other to the superior mesenteric artery. Apparently, this was a prolonged procedure and she was treated with an open abdomen approach. She apparently had some bleeding after surgery and was brought back later this same day for washout of a hematoma. At that time, she was also found to have a small bowel enterotomy which was repaired. All of this information is based on records provided by [facility]. She went back to the operating room on 09/24/2019 and underwent an abdominal washout and closure of her fascia. She subsequently during her hospital stay in [place] developed signs of ischemia of her right lower extremity. and had right lower extremity arteriogram with endarterectomies of the external iliac and common femoral arteries and a thrombectomy. The following day, which would be 09/28/2019, she had fasciotomies of her right lower leg but ultimately underwent an above-knee amputation on the right on 10/07/2019. She had also suffered a fascial dehiscence on 09/30/2019 of her midline incision and required reclosure with mesh. She was accepted in transfer back to [facility] on 10/20/2019. I was contacted today by Dr. Edwards who requested my evaluation of the patient regarding her various surgical wounds and status of her abdomen. ALLERGIES are reported to PENICILLIN, ASPIRIN, IRON, and VANCOMYCIN. MEDICATIONS (at the time of admission include): - Tylenol on an as-needed basis - Augmentin 500/125 tablets one twice daily - aspirin 81 mg by mouth daily - atorvastatin 20 mg by mouth daily - Tums tablets 1000 mg by mouth twice daily as needed for gas pains - cyclobenzaprine 5 mg by mouth three times daily for muscle spasms - Colace 100 mg daily - gabapentin 300 mg by mouth three times daily - magnesium oxide 400 mg by mouth each evening - megestrol acetate 40 mg tablets 160 mg by mouth daily - metoprolol 25 mg by mouth twice daily - oxycodone 5 mg by mouth every 4 hours as needed for pain, - Protonix 40 mg by mouth daily - Florastor 250 mg by mouth daily MEDICAL HISTORY: Significant for hypertension, coronary artery disease, atherosclerotic peripheral vascular disease, 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 SURGICAL HISTORY: is most significant for her recent procedures. These include placement of a bifurcated graft from the aorta to the celiac axis in the superior mesenteric artery, endarterectomies of the right external iliac and common femoral with subsequent right above-knee amputation. She had a laparoscopic cholecystectomy in December of 2018 and underwent an ERCP with stent placement in July of 2019. She has had two prior sections and a hysterectomy. She had undergone pinning of a right hip fracture, which was subsequently converted to a right total hip replacement. At some point in her recent procedure she had undergone stenting of the left iliac system. SOCIAL HISTORY: The patient is a prior smoker of one pack per day of cigarettes for 40 years. She reportedly quit in 2019. Her medical record indicates that she is but has one child. FAMILY HISTORY: Noncontributory. REVIEW OF SYSTEMS: Reveals no history of current chest pain, cough, wheezing or sputum production. She reports that she is having bowel movements and passing flatus and has been voiding without difficulty. She complains of pain in the upper abdomen going all the way down into the lower abdomen as well as pain in her right above-knee amputation stump. PHYSICAL EXAMINATION: Show that her most recent vital signs show her to be afebrile with temperature of 98, a pulse of 94, respirations of 24 and a blood pressure of 146/52. Physical exam shows that she is awake and alert and appears appropriate. She is sitting propped up in the bed looking at some lunch though not actually eating any of it. Skin is warm and dry. Sclerae are anicteric. Mucous membranes are moist to slightly tacky. Her neck shows a small dressing on the right side and this is removed showing a healed central line site. Heart exam shows a regular rhythm. The lungs show somewhat distant breath sounds but they are clear bilaterally with no wheezes or rhonchi. The abdomen reveals a prominent long midline scar. This appears fairly recent. She does have active bowel sounds present in all four quadrants. There is some fullness with tenderness high in the epigastrium and in the left upper quadrant. There is no tenderness to percussion and no tympany to percussion. The lower quadrants are softer and benign. She has a healing right above-knee amputation stump, which does not have a dressing at this time. There are permanent sutures in place and the wound appears to be healing well. There is some mild edema of the stump. On the left side, she has no significant edema distally. I do not feel a pulse in the ankle or foot, but her foot is warm and clearly perfused adequately. I did not examine her back or buttocks, though there is a report that she had a pressure wound on transfer from [place]. Laboratory studies from this morning include a white count of 16,000 with a hemoglobin of 8, hematocrit of 25, and platelet count of 330,000. Her chemistry profile from this morning showed a sodium of 135, potassium 4.0, chloride 105, CO2 of 26, BUN of 6, creatinine 0.4, and glucose of 94. Her magnesium was 1.7. On 10/20/2019, she had a CRP of 15.4. Her ESR on 10/20/2019 was markedly elevated as well at 129. She had a ferritin on 10/20/2019 of 732 with an iron of 21, TIBC of 157. Her protein and albumin from 10/20/2019 were 6.8 and 1.5, respectively. The patient had a chest x-ray and a CT scan of the abdomen and pelvis early this morning. The CT scan reveals a fairly distal right above-knee amputation. This appears to have been done just slightly above the distal femur. She has a prosthesis in place in the right hip. There is evidence for a stent in the common bile duct and also stents identified in the left common and external iliac vessels. She has bilateral pleural effusions slightly larger on the left than the right with some atelectasis on the left. There is a large fluid collection anterior to the aorta extending from approximately the level of the esophageal hiatus to slightly below the level of the head of the pancreas. Her bifurcated aortic graft is noted with contrast filling both the superior mesenteric and celiac systems. There is no definite air within this fluid collection. She does have air in the biliary tree consistent with her bile duct stent. She has some inflammatory changes in the anterior abdominal wall and evidence of some edema in the lateral aspects of the abdomen bilaterally. IMPRESSION: 1. Status post placement of bifurcated aortic graft to the superior mesenteric and celiac arteries and this is now approximately 1 month since that surgery. 2. Large fluid collection surrounding the area of her recent surgery. 3. Recent above-knee amputation secondary to arterial insufficiency. 4. Status post left common and external iliac artery stenting. 5. Hypertension. 6. Dyslipidemia. 7. History of coronary artery disease. 8. Indwelling common bile duct stent status post ERCP for retained common bile duct stone. 9. Poor nutrition parameters with most recent albumin of 1.5. 10. Elevated white blood cell count, which has risen since admission at 13.7 to 16,000 today. RECOMMENDATIONS: At this point, the patient appears to be overall stable. My chief concerns are that she has a somewhat rising white blood cell count. She does have a large fluid collection in the upper abdomen surrounding her D[place]ron bifurcated aortic graft. There is a report from [facility] that an enterotomy had been identified on reexploration the day after surgery and this certainly raises the issue and concern about a possible graft infection. Though there is not any obvious evidence for this currently she should certainly remain on antibiotics and long-term antibiotic therapy may be something that should be discussed with infectious disease. Her nutrition is certainly not optimal and she may well require nutritional support to allow her to heal from her various surgical procedures. She has bilateral pleural effusions as well as some flank edema bilaterally which should improve with improvements in her nutrition. Her above-knee amputation stump appears to be healthy and is healing well. I would leave first stitches in place for now. I did not examine her back and buttocks, but there is a report that she has some pressure breakdown in this area. She has already been cultured with some blood cultures obtained on arrival and I note that Dr. Edwards has ordered a urine culture as well. Her wounds appear to be healing well. If there is progressive evidence of a developing infection, then I believe the retroperitoneal hematoma around her graft would be very suspect, and at that point, I think transfer back to [facility] would be appropriate for them to address this as they see fit. REJI
[2019-10-23] MEDS: ENOXAPARIN 40 MG/0.4 ML SYRINGE (J1650) SC SCH (08:28)
[2019-10-23] MEDS: ATORVASTATIN 20 MG TAB PO SCH (08:29)
[2019-10-23] MEDS: MORPHINE 4 MG/ML 1ML VIAL/SYRINGE (J2270) IV PRN ×3 (08:29→17:03)
[2019-10-23] MEDS: GABAPENTIN 300 MG CAP PO SCH ×3 (08:29→20:55)
[2019-10-23] MEDS: ASPIRIN 81 MG CHEW TABLET PO SCH (08:29)
[2019-10-23] MEDS: DOCUSATE SOD LIQ 100MG/10ML UDC PO SCH (08:32)
[2019-10-23] MEDS: PANTOPRAZOLE 40MG TAB (PROTONIX) PO SCH (08:32)
[2019-10-23] MEDS: METOPROLOL TART 25 MG TABLET PO SCH ×2 (08:32→20:55)
[2019-10-23] MEDS: CYCLOBENZAPRINE 5MG TABLET PO PRN ×2 (10:12→15:20)
[2019-10-23] MEDS: CEFTAROLINE FOSAMIL 600 MG in D5W MINI-BAG PLUS 50 ML IV SCH (11:40)
--- NOTE | 2019-10-23 12:10 | IPNPDOC ---
Subjective Date Seen The patient was seen on 10/23/19. Subjective Chief Complaint/HPI still some abdominal pain, not worse. didn't want breakfast. doesn't usually have BF she says but things she will take some lunch. Constitutional: Reports: Fever; Denies: Chills ENT: Denies: Head Aches, Dysphagia Skin: Denies: Rash Pulmonary: Denies: Dyspnea, Pleuritic Chest Pain Cardiovascular: Denies: Chest Pain, Palpitations, Orthopnea Gastrointestinal: Reports: Abdominal Pain (Left sided, unchanged); Denies: Nausea, Vomiting Hematologic: Denies: Bruising Endocrine: Denies: Polydipsia, Heat Intolerance Neurological: Denies: Weakness, Change in speech Psych: Reports: Mood Normal Objective Physical Examination General Exam: Positive: Alert, No Acute Distress Eye Exam: Positive: PERRLA; Negative: Sclera icteric ENT Exam: Positive: Mucous membr. moist/pink Chest Exam: Positive: Clear to auscultation, Diminished Heart Exam: Positive: Rate Normal, Regular Rhythm; Negative: Normal S1, Normal S2 Abdomen Exam: Positive: Normal bowel sounds (normal bowel sounds today. took her meal w/o difficulty.), Tenderness (tender especially across left mid and upper abdomen.); Negative: Soft Extremity Exam: Positive: Tenderness (still some tenderness right thigh but not worse and some edema but stump wound is intact. Left leg is well perfused and warm.); Negative: Edema Skin Exam: Positive: Breakdown (sacral area. 3 open areas stage 2/3, no induration no drainage); Negative: Nl turgor and temperature Neuro Exam: Positive: Normal Speech Psych Exam: Positive: Mental status NL, Mood NL Assessment /Plan Problems (1) Fever Status: Acute Response to Treatment: Stable Problem Text: 10/22: continue to suspect hematoma residual in abdomen as source. monitoring. Dr. Stein has suggested ID consult which can be requested tomorrow. Continue IV antibiotics. multiple possible sources: post op abdomen if her graft is infected she will not do well; pleural effusion, will monitor after start of Rx. also recent UTI. blood cultures repeated. change abx to ceftaroline plus metronidazole. (2) UTI (urinary tract infection) Status: Acute Problem Specific Plan: Monitor Clinically Problem Text: 10/22: yeast like organism identified in urine. 10/21: due to recurrent fever, elevated WBC, antibiotic changed to ceftaroline plus metronidazole. Will need to obtain final cultures results from [facility]. Currently on Augmentin. (3) S/P AKA (above knee amputation) unilateral Problem Specific Plan: Monitor Clinically Problem Text: 10/21: wound healing well, no redness, no dehiscence, no oozing. tender along medial upper thigh, no redness or induration 10/07/2019 Wound appears clean and dry. (4) Anemia Status: Chronic Problem Text: 10/22: 7.9 Hgb today, stable. Admitted with Hgb 7.8, substantially lower than on DC 09/21/2019, hwowver pt has undergone mtp major surgeries, will need close f/u. Transfuse if less than 7.5 (5) Chronic mesenteric ischemia Status: Chronic Response to Treatment: Stable Problem Specific Plan: Monitor Clinically Problem Text: 10/21: surgery was complicated by hematoma in small bowel and repeat trip to OR. has hematoma on CT. Will ask Dr. Stein to see to help evaluate her tender abdomen and rising wbc. At this point she has been denied DVT prophylaxis, likely because of the post op hematoma, but graft function would be lost if she thromboses so DVT prophylaxis will be resumed. 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 (6) HTN (hypertension) Status: Chronic Response to Treatment: Stable Problem Specific Plan: Monitor Clinically (7) Pleural effusion Status: Acute Response to Treatment: Stable Problem Text: noted on abdominal CT. some compressive atelectasis. possible source of fever along with intraabdominal process. (8) Sacral pressure sore Status: Chronic Response to Treatment: Stable Problem Text: hydrocolloid dressing in place, continue. Plan/VTE VTE Prophylaxis Ordered?: Yes VS, I&O, 24H, Fishbone Vital Signs/I&O Vital Signs Date Time Temp Pulse Resp B/P (MAP) Pulse Ox O2 Delivery O2 Flow Rate FiO2 10/23/19 10:42 20 10/23/19 08:48 0.5 10/23/19 08:32 92 131/72 10/23/19 06:25 99.4 93 Nasal Cannula I&O- Last 24 Hours up to 6 AM 10/23/19 06:00 Intake Total 1410 ml Output Total 1400 ml Balance 10 ml Laboratory Data 24H LABS Laboratory Tests 2 3/8/20 06:16: Immature Granulocyte % (Auto) 1.2, Neutrophils (%) (Auto) 79.0H, Lymphocytes (%) (Auto) 10.5L, Monocytes (%) (Auto) 8.2H, Eosinophils (%) (Auto) 0.9, Basophils (%) (Auto) 0.2, Neutrophils # (Auto) 13.0H, Lymphocytes # (Auto) 1.7, Monocytes # (Auto) 1.3H, Eosinophils # (Auto) 0.1, Basophils # (Auto) 0.0, Nucleated Red Blood Cells % (auto) 0.0, Anion Gap 4L, Glomerular Filtration Rate > 60.0, Calcium Level 7.6L CBC/BMP Laboratory Tests 10/23/19 06:16 Microbiology Microbiology 10/22/19 Blood Culture - Preliminary, Resulted No growth after 24 hours . All specim... 10/22/19 Blood Culture - Preliminary, Resulted No growth after 24 hours . All specim... 10/22/19 Urine Culture - Final, Complete Yeast Like Organism 10/20/19 Respiratory Virus Panel (PCR) (JOCELYN) - Final, Complete 10/20/19 Blood Culture - Preliminary, Resulted No Growth after 48 hours. All Specime... 10/20/19 Blood Culture - Preliminary, Resulted No Growth after 48 hours. All Specime... Floyd Edwards MD Oct 23, 2019 12:10
[2019-10-23 14:00] VITALS: BP 146/62
[2019-10-23] MEDS ORDERED: CYCLOBENZAPRINE 5MG TABLET PO ONE (19:00)
[2019-10-23] MEDS: MAGNESIUM OXIDE 400 MG TAB (MAG-OX) PO SCH (20:55)
[2019-10-23 22:00] VITALS: BP 149/72
[2019-10-24] MEDS: CEFTAROLINE FOSAMIL 600 MG in D5W MINI-BAG PLUS 50 ML IV SCH ×2 (02:13→11:52)
[2019-10-24] MEDS: oxyCODONE 5MG TAB PO PRN ×4 (02:53→18:18)
[2019-10-24] MEDS: metroNIDAZOLE 500 MG in IV 1 EA IV SCH ×2 (04:27→13:05)
[2019-10-24] MEDS: ONDANSETRON 4MG/2ML VIAL (J2405) IV PRN (05:26)
[2019-10-24] MEDS: CYCLOBENZAPRINE 10 MG TAB PO PRN ×3 (05:44→18:18)
[2019-10-24 05:54] LABS: HEMATOCRIT 26.8 % (36.0-47.0); HEMOGLOBIN 8.3 g/dl (12.0-15.5); MEAN CORPUSCULAR HEMOGLOBIN 29.3 pg (27.0-33.0); MEAN CORPUSCULAR VOLUME 94.7 fl (80.0-96.0); PLATELET COUNT, AUTOMATED 361 10^3/uL (150-450); RED BLOOD COUNT 2.83 10^6/uL (4.00-5.40); WHITE BLOOD COUNT 16.6 10^3/uL (4.0-10.0)
[2019-10-24 06:00] VITALS: BP 100/65
[2019-10-24 06:16] LABS: BLOOD UREA NITROGEN 6 MG/DL (7-18); CALCIUM LEVEL 7.7 MG/DL (8.8-10.2); CARBON DIOXIDE LEVEL 23 MEQ/L (21-32); CHLORIDE LEVEL 106 MEQ/L (98-107); CREATININE FOR GFR 0.43 MG/DL (0.55-1.30); GLOMERULAR FILTRATION RATE > 60.0 (>45); GLUCOSE, FASTING 92 MG/DL (70-100); POTASSIUM SERUM 4.2 MEQ/L (3.5-5.1); SODIUM LEVEL 134 MEQ/L (136-145)
[2019-10-24] MEDS: DOCUSATE SOD LIQ 100MG/10ML UDC PO SCH (09:00)
[2019-10-24] MEDS: PANTOPRAZOLE 40MG TAB (PROTONIX) PO SCH (09:00)
[2019-10-24] MEDS: ATORVASTATIN 20 MG TAB PO SCH (09:25)
[2019-10-24] MEDS: ENOXAPARIN 40 MG/0.4 ML SYRINGE (J1650) SC SCH (09:25)
[2019-10-24] MEDS: ASPIRIN 81 MG CHEW TABLET PO SCH (09:25)
[2019-10-24] MEDS: GABAPENTIN 300 MG CAP PO SCH ×3 (09:25→22:16)
[2019-10-24] MEDS: METOPROLOL TART 25 MG TABLET PO SCH ×2 (09:27→22:16)
--- NOTE | 2019-10-24 10:10 | IPNPDOC ---
Subjective Date Seen The patient was seen on 10/24/19. Subjective Chief Complaint/HPI Pt this morning states that she cont to not feel well. She has abd pain, pretty much unchanged since she was transferred here from [facility]. She reports lack of appetite, denies N/V. General: Reports: Fatigue Constitutional: Denies: Chills, Fever ENT: Reports: Head Aches Pulmonary: Denies: Dyspnea, Cough Cardiovascular: Denies: Chest Pain, Palpitations Gastrointestinal: Reports: Abdominal Pain; Denies: Nausea, Vomiting Neurological: Reports: Weakness Psych: Reports: Depression Objective Physical Examination General Exam: Positive: Alert, No Acute Distress ENT Exam: Positive: Mucous membr. moist/pink Chest Exam: Positive: Clear to auscultation, Diminished Heart Exam: Positive: Rate Normal, Regular Rhythm; Negative: Normal S1, Normal S2 Abdomen Exam: Positive: Normal bowel sounds, Tenderness (tender especially across left mid and upper abdomen.); Negative: Soft Extremity Exam: Positive: Tenderness (still some tenderness right thigh but not worse and some edema but stump wound is intact. Left leg is well perfused and warm.); Negative: Edema Skin Exam: Positive: Breakdown (sacral area. 3 open areas stage 2/3, no induration no drainage); Negative: Nl turgor and temperature Neuro Exam: Positive: Normal Speech Psych Exam: Positive: Mental status NL, Mood NL Assessment /Plan Problems (1) Fever Status: Acute Response to Treatment: Stable Problem Text: 10/23 No temp in more than 24 h, last temp was 10/22 at 0600 101.5 F Johan consulted today. Currently on Ceftaroline/Flagyl. Blood cx from 10/21 Neg x2. 10/21 CT A & P with large hematoma. 10/22: continue to suspect hematoma residual in abdomen as source. monitoring. Dr. Stein has suggested ID consult which can be requested tomorrow. Continue IV antibiotics. multiple possible sources: post op abdomen if her graft is infected she will not do well; pleural effusion, will monitor after start of Rx. also recent UTI. blood cultures repeated. change abx to ceftaroline plus metronidazole. (2) UTI (urinary tract infection) Status: Acute Problem Specific Plan: Monitor Clinically Problem Text: 10/22: yeast like organism identified in urine. 10/21: due to recurrent fever, elevated WBC, antibiotic changed to ceftaroline plus metronidazole. Will need to obtain final cultures results from [facility]. Currently on Augmentin. (3) S/P AKA (above knee amputation) unilateral Problem Specific Plan: Monitor Clinically Problem Text: 10/23 Wound cont to appear clean, dry, no erythema, no drainage. 10/21: wound healing well, no redness, no dehiscence, no oozing. tender along medial upper thigh, no redness or induration 10/07/2019 Wound appears clean and dry. (4) Anemia Status: Chronic Problem Text: 10/22: 7.9 Hgb today, stable. Admitted with Hgb 7.8, substantially lower than on DC 09/21/2019, hwowver pt has undergone mtp major surgeries, will need close f/u. Transfuse if less than 7.5 (5) Chronic mesenteric ischemia Status: Chronic Response to Treatment: Stable Problem Specific Plan: Monitor Clinically Problem Text: 10/21: surgery was complicated by hematoma in small bowel and repeat trip to OR. has hematoma on CT. Will ask Dr. Stein to see to help evaluate her tender abdomen and rising wbc. At this point she has been denied D VT prophylaxis, likely because of the post op hematoma, but graft function would be lost if she thromboses so DVT prophylaxis will be resumed. 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 (6) HTN (hypertension) Status: Chronic Response to Treatment: Stable Problem Specific Plan: Monitor Clinically (7) Pleural effusion Status: Acute Response to Treatment: Stable Problem Text: noted on abdominal CT. some compressive atelectasis. possible source of fever along with intraabdominal process. (8) Sacral pressure sore Status: Chronic Response to Treatment: Stable Problem Text: hydrocolloid dressing in place, continue. Plan/VTE VTE Prophylaxis Ordered?: Yes VS, I&O, 24H, Fishbone Vital Signs/I&O Vital Signs Date Time Temp Pulse Resp B/P (MAP) Pulse Ox O2 Delivery O2 Flow Rate FiO2 10/24/19 09:57 17 10/24/19 09:27 101 133/68 10/24/19 06:00 97.8 94 10/24/19 03:23 Room Air 10/24/19 02:53 0.5 I&O- Last 24 Hours up to 6 AM 10/24/19 05:59 Intake Total 1350 ml Output Total 400 ml Balance 950 ml Laboratory Data 24H LABS Laboratory Tests 2 10/24/19 05:21: Nucleated Red Blood Cells % (auto) 0.0, Anion Gap 5L, Glomerular Filtration Rate > 60.0, Calcium Level 7.7L CBC/BMP Laboratory Tests 10/24/19 05:21 Microbiology Microbiology 10/22/19 Blood Culture - Preliminary, Resulted No growth after 24 hours . All specim... 10/22/19 Blood Culture - Preliminary, Resulted No growth after 24 hours . All specim... 10/22/19 Urine Culture - Final, Complete Yeast Like Organism 10/20/19 Respiratory Virus Panel (PCR) (JOCELYN) - Final, Complete 10/20/19 Blood Culture - Preliminary, Resulted No Growth after 72 hours. All specime... 10/20/19 Blood Culture - Preliminary, Resulted No Growth after 72 hours. All specime... KENISHA LOPEZ PA-C Oct 24, 2019 10:10
[2019-10-24] MEDS: MORPHINE 4 MG/ML 1ML VIAL/SYRINGE (J2270) IV PRN ×3 (11:34→22:17)
[2019-10-24] MEDS: ACETAMINOPHEN TAB 650MG DOSE (2X325MG) PO PRN (11:52)
[2019-10-24 14:00] VITALS: BP 134/65
--- NOTE | 2019-10-24 21:39 | CR ---
DATE OF CONSULTATION: 10/24/2019 INFECTIOUS DISEASE CONSULTATION REQUESTING ENGINE PILOT: Dr. Edwards REASON FOR CONSULT: Concern for infectious hematoma. Patient's primary care provider (PCP) is Dr. Lynsey Briceño. HISTORY OF THE PRESENT ILLNESS: Ms. Yan is a 69-year-old female with an extensive past medical history and a recent hospitalization with multiple comorbidities from her peripheral vascular disease, hypertension, history of a deep vein thrombosis (DVT), chronic mesenteric ischemia due to superior mesenteric stenosis, chronic tobacco use, and left lower extremity vascular bypass. She initially had presented for worsening abdominal pain and at [facility], per their records, underwent mesenteric angiogram on 09/22/2019 and thereafter an ex lap with mesenteric angiogram and aorta celiac and aorta superior mesenteric artery (SMA) branch bypass on 09/23/2019. She required pressors and remained intubated postoperatively, and later on, due to her increasing pressor requirements, returned back to the operating room (OR) that very same day on 09/23/2019 at which time a hematoma was found and an enterotomy repair in the proximal small bowel. She returned again back to the OR the next day on 09/24/2019 for abdominal washout and closure. Over the next few days, pressor requirements decreased; however, she remained intubated and communicated increasing pain in the right lower extremity as her sedation weaned down. Imaging revealed possible occlusion at the level of external iliac/common femoral, and she was taken for a right lower angiogram, right external iliac and common femoral artery angioplasty and right lower extremity thrombectomy on 09/27/2019. She worsened postoperatively and was suspected to have compartment syndrome the day after and was taken emergently for right lower extremity fasciotomy on 09/28/2019. During the remainder of her stay, she was noted to have increased serous drainage from abdominal incision, as well as concern for wound dehiscence and was brought back to the OR for abdominal closure again on 09/30/2019, extubated the day after on 10/01/2019. She reportedly had decreased motor function of the right leg thereafter and due to muscle ischemia, she then underwent a right above-knee amputation (AKA) on 10/07/2019. All of the above is information obtained through [facility] records in her chart and confirmed with the patient. Of note, she also had recent bile duct stent placed quite recently prior to this prolonged hospitalization. We have been consulted for concern of persistent fevers and leukocytosis, and severely elevated ESR and CRP despite broad antibiotics. It appears she had a persistent white count since the September at [facility], and she is status post IV Zosyn and Flagyl. Since she has been here in our hospital, she has received ceftaroline and Flagyl for three days as well. However, continues to have a fever of 101.5 as of yesterday 6:00 a.m. and white count of 16, sedimentation rate 129, CRP 15. Blood cultures are negative thus far. Patient complains of persistent abdominal pain, but is otherwise doing significantly better than expected given her recent hospitalization course. Of concern is 10 cm retroperitoneal hematoma that may be the cause of her infection. When examined at bedside and besides her abdominal pain, Ms. Yan has no other complaints. She also does note decreased appetite and poor oral intake. Denies any chest pain, shortness of breath, nausea, vomiting. PAST MEDICAL HISTORY: Hypertension, hx of septic shock with a history of requiring pressors. Severe peripheral vascular disease. Chronic mesenteric ischemia. Depression. Psoriasis. History of DVT in 2014, 2016. Osteoporosis. Dyslipidemia. HOME MEDICATIONS: Include: - Tylenol as needed - aspirin 81 mg - atorvastatin 20 mg by mouth daily - calcium carbonate as needed daily - cyclobenzaprine 5 mg by mouth three times a day as needed - Colace 100 mg by mouth daily - gabapentin 300 mg by mouth three times a day - magnesium oxide 400 mg by mouth every evening - Megace 160 mg by mouth daily - metoprolol tartrate 25 mg by mouth twice a day - oxycodone 5 mg by mouth every 4 hours as needed - pantoprazole 40 mg by mouth daily - Florastor 250 mg by mouth daily CURRENT MEDICATIONS: - Narcan as needed, that has not been used - morphine 4 mg IV every 4 hours as needed - gabapentin 300 mg by mouth three times a day - Tums 1000 mg every 6 hours as needed - Tylenol 650 mg every 4 hours as needed - Lopressor 25 mg twice a day by mouth - magnesium oxide 400 mg by mouth every evening - Protonix 40 mg by mouth daily - Colace 100 mg by mouth daily - Lipitor 20 mg by mouth daily - aspirin 81 mg by mouth daily - Lovenox 40 mg subcu daily - ceftaroline 600 mg every 12 hours; that was started on 10/22/2019 making it day #3 here in the hospital. - Flagyl 500 mg every 8 hours IV, also started on 10/22/2019, currently day #3. - Zofran 4 mg IV every 6 hours as needed - Flexeril 10 mg by mouth every 6 hours as needed - oxycodone 10 mg every 4 hours as needed by mouth She also has received what appears to be, per her chart, a full 10-day course of oral Augmentin of which four doses were completed here, and is also status post IV Zosyn and Flagyl from [facility]. ALLERGIES: Listed in the chart actually seem to be adverse reactions and not true allergies - PENICILLIN causes mild hives, ASPIRIN causes a rash, VANCOMYCIN causes itching, IRON causes flu-like symptoms. SOCIAL HISTORY: Smoked 1 to 1.5 packs per day (PPD) for 40+ years, quit last month since this health scare. 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 One daughter passed of pelvic cancer and one is alive and healthy. FAMILY HISTORY: She denies any history of blood clots, strokes, or cardiac condition. PAST SURGICAL HISTORY: Right slypv-osb-pulo amputation. Bypass of the aorto-celiac and aorto-SMA. Angioplasty with thrombectomy in the right external iliac and common femoral artery. Laparoscopic cholecystectomy in December of 2018. Endoscopic retrograde cholangiopancreatography (ERCP) with biliary stent placement July 2019. Two sections. Hysterectomy. Bilateral broken hip repair. REVIEW OF SYSTEMS: Denies any chills or weight loss. Admits to fever and decreased appetite. Denies any headache, tinnitus, auditory or visual changes, any dysphagia or odynophagia. Admits to chronic heartburn. Denies any chest pain or palpitations, or lower extremity edema. Denies cough, wheezing, shortness of breath, or sputum phlegm production. Denies hemoptysis. Admits to abdominal pain, mostly diffusely from recent surgeries. Admits to alternating constipation and diarrhea chronically for her. No current changes for her bowels and denies melena, hematochezia. Denies skin rashes or any lower extremity edema or changes in motor or sensation. PHYSICAL EXAMINATION: Vital Signs: Temperature 99.2, pulse 99, respirations 20, blood pressure 134/65, mean arterial pressure (MAP) 88, pulse oximetry 91% on room air. Maximum temperature (T max) was noted to be 101.5, that was at 6:00 a.m. on 10/23/2019. She is laying comfortably in bed, in no acute distress, fully alert and oriented times three. Normocephalic, atraumatic. Moist mucous membranes. Neck is supple without any jugular venous distention (JVD). Heart: Regular rate and rhythm without any appreciable murmur, clicks, or gallops. No lower extremity edema. Lungs are clear throughout without any wheezing, rhonchi, or rales. There are equal breath sounds bilaterally. Abdomen: Soft with tenderness to palpation diffusely with healing midline vertical scars from recent surgeries with a healing blister along the surgical site. Bandage in the right lower hip from where it appears to be was a drain, possibly also access from recent femoral and iliac intervention. Normoactive bowel sounds throughout the abdomen. No rebound, guarding, or rigidity. No appreciable hepatomegaly. Extremities: Right AKA done with stitches intact without any oozing or signs of infection. Left lower extremity intact with peripheral pulses 1 to 2+. Able to move all extremities. LABORATORY: WBC 16.6, which is the highest since she has been here. She came in at 13.7 and gradually trending up. Hemoglobin and hematocrit 8.3 and 26.8, platelets 361. ESR 129. Sodium and potassium 134 and 4.2, BUN and creatinine 6 and 0.43. CRP is 14.3, slightly down from admission which was 15.4. UA: 3+ blood, trace leukocyte esterase, 9 RBCs, 1+ bacteria. Negative methicillin-resistant Staphylococcus aureus (MRSA). Blood cultures negative at 72 hours. Respiratory panel negative. Urine had yeast-like organism and blood cultures again negative at 48 hours. Chest x-ray on admission on 10/22/2019 revealed no acute disease. CT of the abdomen and pelvis also upon admission reveals status post visceral artery grafts of the celiac axis and superior mesenteric artery with surrounding upper abdominal retroperitoneal hematoma measuring 10 cm. There is a small left upper pole renal infarct, small bilateral pleural effusions, biliary stent again seen in place, mild mural thickening seen in several small bowel loops. No obstructive lesion. No evidence of free air. Postop changes in the anterior abdominal wall. Doppler of the right lower extremity is negative for DVT. IMPRESSION AND PLAN: Problems: 1. Persistent leukocytosis, elevated sedimentation rate and CRP, and persistent fevers despite broad antibiotics. 2. Aorta celiac and aorta superior mesenteric artery (SMA) bypass. 3. 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 4. Severe peripheral vascular disease with compartment syndrome and muscle ischemia, status post fasciotomy and right above-knee amputation. 5. History of abdominal wound dehiscence in 09/2019 requiring recurrent abdominal interventions. 6. History of septic shock recently at [facility] in 09/2019 requiring pressors and prolonged intubation. 7. History of bile duct stent, status post ERCP for choledocholithiasis. 8. Hypertension. 9. Dyslipidemia. 10. Chronic tobacco use. Plan: At this point, the most likely etiology of her rising white count and sed rate and persistent fevers points towards a questionable infectious hematoma that is noted to be as large as 10 cm in the retroperitoneal region. Monitor her hemoglobin and hematocrit closely as it appears she may ultimately require blood transfusion. She has required them in the past as well. Would recommend consenting for blood and transfuse as needed to maintain above 8. There is a questionable history of cardiac disease. Currently will change her antibiotics from ceftaroline and Flagyl over to meropenem and fluconazole so that there is Pseudomonas and extended spectrum beta-lactamase (ESBL) and fungal coverage as well. We have discussed the case with our radiologist who will obtain [facility] imaging records so we can monitor the progression of her multiple ongoing issues. We will also reach out to Dr. Henderson of interventional radiology tomorrow in the hopes that we can possibly drain this hematoma and send out for any cultures. In the meanwhile, continue trending her white count and inflammatory markers. Again, if the hematoma is not the source of infection, then our other options would include one of her multiple stents or grafts that were recently introduced last month. If this is indeed the case, then we would have a low threshold to indeed transfer her back to [facility] for further intervention for this possible infection. Currently her surgical sites look to be healing well. She has been counseled in depth on tobacco cessation, and she reports she has quit since this prolonged hospitalization since last month. She is also having minimal oral intake, would closely monitor this and consider supplementation if her abdominal pain allows. Thank you for the consultation. We will continue to follow along. REJI
[2019-10-24 22:00] VITALS: BP 104/60
[2019-10-24] MEDS: MAGNESIUM OXIDE 400 MG TAB (MAG-OX) PO SCH (22:16)
[2019-10-24] MEDS: MEROPENEM INJ 1 GM in IV 1 EA IV SCH (22:18)
[2019-10-25] VITALS (8 sets, daily range): BP systolic 117–143; BP diastolic 57–84
[2019-10-25] MEDS: FLUCONAZOLE 400 MG in IV 1 EA IV SCH ×2 (00:06→23:31)
[2019-10-25] MEDS: CYCLOBENZAPRINE 10 MG TAB PO PRN ×3 (02:15→23:31)
[2019-10-25 05:56] LABS: HEMATOCRIT 25.8 % (36.0-47.0); HEMOGLOBIN 7.7 g/dl (12.0-15.5); MEAN CORPUSCULAR HEMOGLOBIN 29.2 pg (27.0-33.0); MEAN CORPUSCULAR HGB CONC 29.8 g/dl (32.0-36.5); MEAN CORPUSCULAR VOLUME 97.7 fl (80.0-96.0); PLATELET COUNT, AUTOMATED 318 10^3/uL (150-450); RED BLOOD COUNT 2.64 10^6/uL (4.00-5.40); WHITE BLOOD COUNT 13.4 10^3/uL (4.0-10.0)
[2019-10-25] MEDS: MEROPENEM INJ 1 GM in IV 1 EA IV SCH ×3 (05:58→20:29)
[2019-10-25] MEDS: oxyCODONE 5MG TAB PO PRN ×3 (06:07→17:35)
[2019-10-25 06:14] LABS: BLOOD UREA NITROGEN 7 MG/DL (7-18); CALCIUM LEVEL 7.1 MG/DL (8.8-10.2); CARBON DIOXIDE LEVEL 24 MEQ/L (21-32); CHLORIDE LEVEL 107 MEQ/L (98-107); CREATININE FOR GFR 0.46 MG/DL (0.55-1.30); GLOMERULAR FILTRATION RATE > 60.0 (>45); GLUCOSE, FASTING 86 MG/DL (70-100); POTASSIUM SERUM 4.3 MEQ/L (3.5-5.1); SODIUM LEVEL 135 MEQ/L (136-145)
[2019-10-25] MEDS: PANTOPRAZOLE 40MG TAB (PROTONIX) PO SCH (08:35)
[2019-10-25] MEDS: ATORVASTATIN 20 MG TAB PO SCH (08:35)
[2019-10-25] MEDS: GABAPENTIN 300 MG CAP PO SCH ×3 (08:35→20:29)
[2019-10-25] MEDS: ASPIRIN 81 MG CHEW TABLET PO SCH (08:35)
[2019-10-25] MEDS: METOPROLOL TART 25 MG TABLET PO SCH ×2 (08:36→20:29)
[2019-10-25] MEDS: ENOXAPARIN 40 MG/0.4 ML SYRINGE (J1650) SC SCH (08:36)
[2019-10-25] MEDS: DOCUSATE SOD LIQ 100MG/10ML UDC PO SCH (08:37)
--- NOTE | 2019-10-25 09:47 | IPNPDOC ---
Subjective Date Seen The patient was seen on 10/25/19. Subjective Chief Complaint/HPI Pt this morning states that she is feeling better today than she was yesterday, more energy, less pain, appetite is better this morning. General: Reports: Fatigue Constitutional: Denies: Chills, Fever ENT: Denies: Head Aches Pulmonary: Denies: Dyspnea, Cough Cardiovascular: Denies: Chest Pain, Palpitations Gastrointestinal: Reports: Abdominal Pain; Denies: Nausea, Vomiting, Diarrhea Neurological: Reports: Weakness Psych: Reports: Mood Normal Objective Physical Examination General Exam: Positive: Alert, No Acute Distress ENT Exam: Positive: Mucous membr. moist/pink Chest Exam: Positive: Clear to auscultation, Diminished Heart Exam: Positive: Rate Normal, Regular Rhythm; Negative: Normal S1, Normal S2 Abdomen Exam: Positive: Normal bowel sounds, Tenderness (tender especially across left mid and upper abdomen.); Negative: Soft Extremity Exam: Positive: Tenderness (still some tenderness right thigh but not worse and some edema but stump wound is intact. Left leg is well perfused and warm.); Negative: Edema Skin Exam: Positive: Breakdown (sacral area. 3 open areas stage 2/3, no induration no drainage); Negative: Nl turgor and temperature Neuro Exam: Positive: Normal Speech Psych Exam: Positive: Mental status NL, Mood NL Assessment /Plan Problems (1) Fever Status: Acute Response to Treatment: Stable Problem Text: 10/24 Last temp 10/22, WBC remains elevated, but has gone down slightly c/w yesterday. ID consulted yest, changed abx regimen from Ceftaroline/Flagyl to Meropenam/fluconazole. Concern for infected hematoma vs infected graph. 10/23 No temp in more than 24 h, last temp was 10/22 at 0600 101.5 F Johan consulted today. Currently on Ceftaroline/Flagyl. Blood cx from 10/21 Neg x2. 10/21 CT A & P with large hematoma. 10/22: continue to suspect hematoma residual in abdomen as source. monitoring. Dr. Stein has suggested ID consult which can be requested tomorrow. Continue IV antibiotics. multiple possible sources: post op abdomen if her graft is infected she will not do well; pleural effusion, will monitor after start of Rx. also recent UTI. blood cultures repeated. change abx to ceftaroline plus metronidazole. (2) UTI (urinary tract infection) Status: Acute Problem Specific Plan: Monitor Clinically Problem Text: 10/22: yeast like organism identified in urine. 10/21: due to recurrent fever, elevated WBC, antibiotic changed to ceftaroline plus metronidazole. Will need to obtain final cultures results from [facility]. Currently on Augmentin. (3) S/P AKA (above knee amputation) unilateral Problem Specific Plan: Monitor Clinically Problem Text: 10/23 Wound cont to appear clean, dry, no erythema, no drainage. 10/21: wound healing well, no redness, no dehiscence, no oozing. tender along medial upper thigh, no redness or induration 10/07/2019 Wound appears clean and dry. (4) Anemia Status: Chronic Problem Text: 10/24 Hgm 7.7 this morning, consent obtained, will transfuse 1 unit. 10/22: 7.9 Hgb today, stable. Admitted with Hgb 7.8, substantially lower than on DC 09/21/2019, hwowver pt has undergone mtp major surgeries, will need close f/u. Transfuse if less than 7.5 (5) Chronic mesenteric ischemia Status: Chronic Response to Treatment: Stable Problem Specific Plan: Monitor Clinically Problem Text: 10/21: surgery was complicated by hematoma in small bowel and repeat trip to OR. has hematoma on CT. Will ask Dr. Stein to see to help evaluate her tender abdomen and rising wbc. At this point she has been denied DVT prophylaxis, likely because of the post op hematoma, but graft function would be lost if she thromboses so DVT prophylaxis will be resumed. 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 (6) HTN (hypertension) Status: Chronic Response to Treatment: Stable Problem Specific Plan: Monitor Clinically (7) Pleural effusion Status: Acute Response to Treatment: Stable Problem Text: noted on abdominal CT. some compressive atelectasis. possible source of fever along with intraabdominal process. (8) Sacral pressure sore Status: Chronic Response to Treatment: Stable Problem Text: hydrocolloid dressing in place, continue. Plan/VTE VTE Prophylaxis Ordered?: Yes VS, I&O, 24H, Fishbone Vital Signs/I&O Vital Signs Date Time Temp Pulse Resp B/P (MAP) Pulse Ox O2 Delivery O2 Flow Rate FiO2 10/25/19 08:36 90 141/65 10/25/19 06:37 18 Nasal Cannula 1.0 10/25/19 06:00 97.1 96 I&O- Last 24 Hours up to 6 AM 10/25/19 06:00 Intake Total 1370 ml Output Total 975 ml Balance 395 ml Laboratory Data 24H LABS Laboratory Tests 2 10/25/19 05:20: Nucleated Red Blood Cells % (auto) 0.0, Anion Gap 4L, Glomerular Filtration Rate > 60.0, Calcium Level 7.1L, C-Reactive Protein, Quantitative 13.10H CBC/BMP Laboratory Tests 10/25/19 05:20 Microbiology Microbiology 10/22/19 Blood Culture - Preliminary, Resulted No Growth after 48 hours. All Specime... 10/22/19 Blood Culture - Preliminary, Resulted No Growth after 48 hours. All Specime... 10/22/19 Urine Culture - Final, Complete Yeast Like Organism 10/20/19 Respiratory Virus Panel (PCR) (JOCELYN) - Final, Complete 10/20/19 Blood Culture - Preliminary, Resulted No Growth after 72 hours. All specime... 10/20/19 Blood Culture - Preliminary, Resulted No Growth after 72 hours. All specime... KENISHA LOPEZ PA-C Oct 25, 2019 09:47
--- NOTE | 2019-10-25 09:56 | IPN ---
DATE: 10/23/2019 HISTORY: The patient was accepted back to [facility] following extensive vascular reconstructive surgery in [place]. She is just about a month out from her major reconstruction with bypasses to the superior mesenteric and celiac arteries. She has had intermittent fevers to 101.5 most recently this morning. Her white blood cell count has remained somewhat elevated as well. She is currently on antibiotics with ceftaroline and Flagyl. Vital signs: Shows that her T-max is 101.5 at 600 on the 8th. It is down since then. Her pulse has generally been in the 80s and low 90s and her blood pressure has been acceptable. Intake and output show that yesterday she had 1460 in with 1000 of urine output. She has had some incontinent bowel movements. PHYSICAL EXAMINATION: The patient appears quite tired but not in pain. She is alert and oriented. She seems somewhat discouraged. Sclerae are anicteric. The skin is warm and dry. Mucous membranes are somewhat tacky. The abdomen is flat and she continues to have some tenderness in the epigastrium and in the left upper quadrant to approximately 5-7 cm to the left of the midline. She does have bowel sounds present. Laboratory studies show a white count of 16.4 with a differential showing 79% neutrophils, 10% lymphocytes and 8% monocytes. Hemoglobin is 7.9 with an hematocrit of 25 and platelet count is 318,000. Chemistry profile showed a sodium 134, potassium 3.7, chloride 105, CO2 of 25, BUN of 5, creatinine 0.38 and a glucose of 109. IMPRESSION: The patient appears fairly stable. I suspect that her nutritional parameters are poor. She does not appear to be eating much. She continues to have some discomfort in the epigastrium and her white count remained somewhat elevated. RECOMMENDATIONS: I would recommend continuing the antibiotics certainly. It may be necessary to consider other forms of nutritional support if her diet does not improve. She should certainly continue physical therapy regarding her above-knee amputation. At this point there is no need for any sort of surgical intervention. I will follow intermittently at this point. REJI
--- NOTE | 2019-10-25 10:52 | IPN ---
DATE: 10/24/2019 HISTORY: The patient is slightly over a month out from a revascularization of the celiac and superior mesenteric arteries with a Dacron graft. She had a long and complicated postop course and has also had a right above-knee amputation. She has a large fluid collection around the origin of her graft extending up posterior to the stomach. Vital signs show that she has been afebrile over the past 24 hours, which is a good change. Her pulse is in the 80s to about 100, and her blood pressure is good. Intake and output shows that yesterday she had 1150 in, 900 of which was oral, with the urine output recorded at 400. She did have a bowel movement yesterday. PHYSICAL EXAMINATION: The patient still appears quite tired and somewhat discouraged but not actually in pain. She is alert and oriented. She reports she is still having some abdominal discomfort. Examination shows that her midline incision remains well healed. The abdomen has bowel sounds and she remains tender in the left side of the epigastrium slightly to the left of her midline scar. Laboratory studies show that her white count today is 16.6 with a hemoglobin of 8 and a hematocrit of 27. Platelet count is 361,000. Chemistry profile shows a sodium of 134, potassium 4.2, chloride 106, CO2 of 23, BUN of 6, creatinine 0.4 and a glucose of 92. Culture results to date show that she has grown a yeastlike organism from her urine. Her blood cultures to date are no growth. IMPRESSION: The patient appears stable. She is afebrile over the last 24 hours and this is reassuring. Her white count is up just a hair from yesterday but really not a substantial amount. Her appetite remains poor, which I guess is not surprising. RECOMMENDATIONS: I would recommend that we continue to monitor her nutritional status closely and provide nutritional support as needed. I would recommend continuing her on her antibiotics for now. If her white count remains elevated and her pain in the left epigastrium continues, then a repeat CT scan of the abdomen in perhaps a week since the prior study I think would be appropriate to continue to monitor the retroperitoneal hematoma. REJI
--- NOTE | 2019-10-25 18:35 | IPN ---
INFECTIOUS DISEASE PROGRESS NOTE DATE: 10/25/2019 SUBJECTIVE: Patient examined at bedside. Although her white count is gradually trending down from 16 to 13 today and C-reactive protein (CRP) is down from 14 to 13, she continues to have abdominal pain and minimal appetite with mild nausea. No vomiting. She was switched over from Flagyl and ceftaroline yesterday to meropenem and fluconazole, which she is tolerating well. She had no fevers overnight and is noted to be receiving a blood transfusion when examined today for her hemoglobin of 7.7 this morning. No chest pain, shortness of breath, lightheadedness, dizziness, or edema. PHYSICAL EXAMINATION: VITAL SIGNS: Temperature 98.6, pulse 84, respirations 17, blood pressure (BP) 130/68, pulse 84, oxygen 97% on 2 liters nasal cannula, maximal temperature is 99.1 in the past 24 hours. Elderly female, lying in bed mildly distressed due to abdominal pain, fully alert and oriented times three. HEAD: Normocephalic, atraumatic with dry mucous membranes. NECK: Supple without any jugular venous distention (JVD). CHEST: Regular rate and rhythm without any murmur, clicks, gallops. No lower extremity edema. LUNGS: Clear throughout without any adventitious sounds. ABDOMEN: Soft with tenderness to palpation diffusely. There is a healing midline vertical scar from recent surgery with a small blister. She also has a healing scar in the right lower abdominal region from what appears to be where she had her recent femoral iliac intervention. Hyperactive bowel sounds. No rebound or guarding. Abdomen is mildly more rigid compared to yesterday. No appreciable hepatomegaly or masses. EXTREMITIES: There is a right above-knee amputation (AKA) without any oozing or signs of infection. The area is soft. Left lower extremity is intact fully with peripheral pulses 1-2+. Motor and sensation intact throughout. LABORATORY DATA: WBC down from 16.6 to 13.4 today. Hemoglobin and hematocrit are down from 8.3 and 26 yesterday to 7.7 and 25.8 today, platelets 318. Sodium and potassium 135 and 4.3, chloride and bicarbonate 107 and 24, BUN and creatinine 7 and 0.46. CRP is down from 14.3 yesterday to 13.1 today. Blood cultures negative for 72 hours. Urine culture is positive for yeastlike organisms. Initial set of blood cultures done on the October 19 are negative after 5 days. No new imaging. IMPRESSION AND PLAN: 1. Persistent leukocytosis, sedimentation rate, and CRP, and fevers despite initially being on Flagyl and ceftaroline for 3 days. 2. Aortoiliac and aorto-superior mesenteric artery (SMA) bypass. 3. 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 4. Severe peripheral vascular disease with compartment syndrome and muscle ischemia, status post fasciotomy and right AKA. 5. History of abdominal wound dehiscence on September 2019, requiring recurrent abdominal intervention. 6. History of septic shock. Recently at [facility] in September 2019, requiring pressors and prolonged intubation. 7. History of bile duct stent, status post endoscopic retrograde cholangiopancreatography (ERCP) for choledocholithiasis. 8. Hypertension. 9. Dyslipidemia. 10. Chronic tobacco use. PLAN: Patient is status post 3 days of ceftaroline and Flagyl, which was switched over to meropenem and fluconazole yesterday. Currently is in day 2 on antifungal and broad-spectrum antibiotic. Continue these for pseudomonas and extended-spectrum beta lactamase (ESBL) coverage. There is concern for infected hematoma. We have again attempted to reach out to Dr. Henderson over the phone and in person and are awaiting to hear back. We will again reach out to her tomorrow. In the meanwhile, continue these antibiotics and would recommend repeat imaging of the abdomen, which is ordered from tomorrow morning, to followup on the hematoma. Options were discussed with our radiologist, who recommend following up with interventional radiology (IR) for any intervention with caution given she is a high risk due to her recent bypass grafts and stents surrounding the area of hematoma. The question remains if her source of infection is the hematoma versus a graft or stent. Continue monitoring white count, inflammatory markers. Transfuse as needed to maintain hemoglobin and hematocrit above 8. Should she not improve, our options would be limited to transferring out Ms. Yan back to [facility], where the initial abdominal procedures were performed. Will continue following along. REJI
[2019-10-25] MEDS: MAGNESIUM OXIDE 400 MG TAB (MAG-OX) PO SCH (20:29)
[2019-10-26] MEDS: oxyCODONE 5MG TAB PO PRN ×2 (02:07→13:35)
[2019-10-26 05:46] LABS: HEMATOCRIT 26.1 % (36.0-47.0); HEMOGLOBIN 8.3 g/dl (12.0-15.5); MEAN CORPUSCULAR HEMOGLOBIN 30.1 pg (27.0-33.0); MEAN CORPUSCULAR HGB CONC 31.8 g/dl (32.0-36.5); MEAN CORPUSCULAR VOLUME 94.6 fl (80.0-96.0); PLATELET COUNT, AUTOMATED 306 10^3/uL (150-450); RED BLOOD COUNT 2.76 10^6/uL (4.00-5.40)
[2019-10-26 06:00] VITALS: BP 122/56
[2019-10-26 06:06] LABS: BLOOD UREA NITROGEN 6 MG/DL (7-18); CALCIUM LEVEL 7.2 MG/DL (8.8-10.2); CARBON DIOXIDE LEVEL 23 MEQ/L (21-32); CHLORIDE LEVEL 104 MEQ/L (98-107); GLOMERULAR FILTRATION RATE > 60.0 (>45); GLUCOSE, FASTING 87 MG/DL (70-100); POTASSIUM SERUM 4.3 MEQ/L (3.5-5.1); SODIUM LEVEL 133 MEQ/L (136-145)
[2019-10-26] MEDS: GASTROGRAFIN SOLUTION 30ML PO SCH ×2 (06:32→06:57)
[2019-10-26] MEDS: MEROPENEM INJ 1 GM in IV 1 EA IV SCH ×3 (06:57→21:57)
[2019-10-26] MEDS ORDERED: ISOVUE-370 76% 100ML VIAL (Q9967) As Ordered ONE (07:50)
[2019-10-26] MEDS: GABAPENTIN 300 MG CAP PO SCH ×3 (08:55→21:56)
[2019-10-26] MEDS: PANTOPRAZOLE 40MG TAB (PROTONIX) PO SCH (08:55)
[2019-10-26] MEDS: CYCLOBENZAPRINE 10 MG TAB PO PRN (08:55)
[2019-10-26] MEDS: ASPIRIN 81 MG CHEW TABLET PO SCH (08:55)
[2019-10-26] MEDS: ATORVASTATIN 20 MG TAB PO SCH (08:55)
[2019-10-26] MEDS: METOPROLOL TART 25 MG TABLET PO SCH (08:55)
[2019-10-26] MEDS: ENOXAPARIN 40 MG/0.4 ML SYRINGE (J1650) SC SCH (08:55)
[2019-10-26] MEDS: DOCUSATE SOD LIQ 100MG/10ML UDC PO SCH (08:56)
--- NOTE | 2019-10-26 09:54 | REP ---
CT of the abdomen and pelvis with IV and oral contrast: Comparison is 2019. The patient has a known right lower extremity above the knee amputation. There are known endovascular grafts in the left iliac and femoral arteries. There is a known periaortic retroperitoneal hematoma at the origins of the celiac artery and SMA. This hematoma today it measures 8.3 cm AP diameter by 7.3 cm transversely by 13.1 cm craniocaudad. Previously the hematoma measured 8.9 cm AP by 7.0 cm transversely by 13.3 cm craniocaudad on the sagittal view remeasuring in the craniocaudad dimension along the long axis of the hematoma. The hematoma has not significantly changed in size. There are no air or gas bubbles within the hematoma to suggest infection. No inflammatory changes are seen in the retroperitoneal fat adjacent to the hematoma. The the patient has had an aorto celiac and aorto SMA graft anastomosis. . The anastomosis again appears patent feeding celiac artery branches and connecting with an irregular segment of the mid SMA as previously. Curvilinear densities are identified within the hematoma, presumably suture material. This is unchanged. There is again slight mass effect from the hematoma at the medial margin of the stomach and superior margin of the pancreas as previously. The There is focal mesenteric edema along the inferior margin of the hematoma. This has decreased slightly. The adrenals are unremarkable. The small left renal upper pole infarct is unchanged. There are bilateral renal Bosniak type 1 cysts, unchanged. No pararenal stranding. No hydronephrosis. The abdominal aorta is unremarkable except for calcified atheroma. The common biliary duct stent is unchanged. A tiny volume of pneumobilia is again identified. Postsurgical changes in the anterior abdominal wall are again identified and have slightly decreased in size. There are bilateral pleural effusions. These are unchanged. The bowel and mesentery are unchanged. The bladder is unremarkable. The Right hip arthroplasty and left hip internal fixation are unchanged. Impression: The of the patient's known upper abdominal periaortic hematoma is unchanged in size. There is no evidence of air or gas bubbles within the hematoma or inflammatory changes in the retroperitoneum adjacent to the hematoma to suggest infection. There are bilateral pleural effusions, unchanged. There is no ascites. No adenopathy. The bilateral Bosniak type 1 renal cysts are unchanged. The small left renal cortical infarct is unchanged. The common biliary duct stent is unchanged. Endovascular grafts in the left iliac and femoral arteries are unchanged. Postsurgical changes in the anterior abdominal wall has slightly decreased. Electronically Signed by Taj Byrd MD 10/26/2019 09:46 A
--- NOTE | 2019-10-26 11:26 | IPNPDOC ---
Subjective Date Seen The patient was seen on 10/26/19. Subjective Chief Complaint/HPI abdominal pain Events since last encounter States abdominal pain is continuing to increase. Low grade temp of 99.7 noted this am. States normal BM today. Constitutional: Reports: Fever, Weakness Pulmonary: Reports: Dyspnea, Cough Cardiovascular: Denies: Chest Pain, Palpitations, Orthopnea, Paroxysmal Noc. Dyspnea, Lt Headedness Gastrointestinal: Reports: Nausea, Abdominal Pain; Denies: Vomiting, Diarrhea, Constipation Genitourinary: Denies: Dysuria, Frequency, Incontinence, Retention Psych: Reports: Mood Normal; Denies: Depression, Memory Issues Objective Physical Examination General Exam: Positive: Alert, No Acute Distress ENT Exam: Positive: Mucous membr. moist/pink Chest Exam: Positive: Clear to auscultation, Diminished Heart Exam: Positive: Rate Normal, Regular Rhythm; Negative: Normal S1, Normal S2 Abdomen Exam: Positive: Normal bowel sounds, Tenderness (tender especially across left mid and upper abdomen.); Negative: Soft (distended, hard) Extremity Exam: Positive: Tenderness (still some tenderness right thigh but not worse and some edema but stump wound is intact. Left leg is well perfused and warm.); Negative: Edema Skin Exam: Positive: Breakdown (sacral area. 3 open areas stage 2/3, no induration no drainage); Negative: Nl turgor and temperature Neuro Exam: Positive: Normal Speech Psych Exam: Positive: Mental status NL, Mood NL Assessment /Plan Problems (1) Fever Status: Acute Response to Treatment: Stable Problem Text: 10/26/2019: T max 99.7. WBC 15,000 today CRP is improved at 12 from 13. Continue Meropenem and Fluconazole as recommended by ID. Reviewed patient's worsening condition. She declines transfer right now, states she'll consider it. CT report: unchanged. Bl cx negative 10/24 Last temp 10/22, WBC remains elevated, but has gone down slightly c/w yesterday. ID consulted yest, changed abx regimen from Ceftaroline/Flagyl to Meropenam/fluconazole. Concern for infected hematoma vs infected graph. 10/23 No temp in more than 24 h, last temp was 10/22 at 0600 101.5 F Johan consulted today. Currently on Ceftaroline/Flagyl. Blood cx from 10/21 Neg x2. 10/21 CT A & P with large hematoma. 3/8: continue to suspect hematoma residual in abdomen as source. monitoring. Dr. Stein has suggested ID consult which can be requested tomorrow. Continue IV antibiotics. multiple possible sources: post op abdomen if her graft is infected she will not do well; pleural effusion, will monitor after start of Rx. also recent UTI. blood cultures repeated. change abx to ceftaroline plus metronidazole. (2) UTI (urinary tract infection) Status: Acute Problem Specific Plan: Monitor Clinically Problem Text: 10/22: yeast like organism identified in urine. 10/21: due to recurrent fever, elevated WBC, antibiotic changed to ceftaroline plus metronidazole. Will need to obtain final cultures results from [facility]. Currently on Aug ntin. (3) S/P AKA (above knee amputation) unilateral Problem Specific Plan: Monitor Clinically Problem Text: 10/23 Wound cont to appear clean, dry, no erythema, no drainage. 10/21: wound healing well, no redness, no dehiscence, no oozing. tender along medial upper thigh, no redness or induration 10/07/2019 Wound appears clean and dry. (4) Anemia Status: Chronic Problem Text: 10/26/2019: Hgb 8.3 today 10/24 Hgm 7.7 this morning, consent obtained, will transfuse 1 unit. 10/22: 7.9 Hgb today, stable. Admitted with Hgb 7.8, substantially lower than on DC 09/21/2019, hwowver pt has undergone mtp major surgeries, will need close f/u. Transfuse if less than 7.5 (5) Chronic mesenteric ischemia Status: Chronic Response to Treatment: Stable Problem Specific Plan: Monitor Clinically Problem Text: 10/21: surgery was complicated by hematoma in small bowel and repeat trip to OR. has hematoma on CT. Will ask Dr. Stein to see to help evaluate her tender abdomen and rising wbc. At this point she has been denied DVT prophylaxis, likely because of the post op hematoma, but graft function would be lost if she thromboses so DVT prophylaxis will be resumed. 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 (6) HTN (hypertension) Status: Chronic Response to Treatment: Stable Problem Specific Plan: Monitor Clinically (7) Pleural effusion Status: Acute Response to Treatment: Stable Problem Text: noted on abdominal CT. some compressive atelectasis. possible source of fever along with intraabdominal process. (8) Sacral pressure sore Status: Chronic Response to Treatment: Stable Problem Text: hydrocolloid dressing in place, continue. Plan/VTE VTE Prophylaxis Ordered?: Yes VS, I&O, 24H, Fishbone Vital Signs/I&O Vital Signs Date Time Temp Pulse Resp B/P (MAP) Pulse Ox O2 Delivery O2 Flow Rate FiO2 10/26/19 09:00 1.0 10/26/19 08:55 88 136/64 10/26/19 06:00 99.7 15 97 Nasal Cannula I&O- Last 24 Hours up to 6 AM 10/26/19 06:00 Intake Total 2460 ml Output Total 250 ml Balance 2210 ml Laboratory Data 24H LABS Laboratory Tests 2 10/26/19 05:15: Nucleated Red Blood Cells % (auto) 0.0, Anion Gap 6L, Glomerular Filtration Rate > 60.0, Calcium Level 7.2L, C-Reactive Protein, Quantitative 12.00H CBC/BMP Laboratory Tests 10/26/19 05:15 Microbiology Microbiology 10/26/19 Gram Stain - Final, Resulted 10/26/19 Wound Culture, Resulted Pending 10/22/19 Blood Culture - Preliminary, Resulted No Growth after 72 hours. All specime... 10/22/19 Blood Culture - Preliminary, Resulted No Growth after 72 hours. All specime... 10/22/19 Urine Culture - Final, Complete Yeast Like Organism 10/20/19 Respiratory Virus Panel (PCR) (JOCELYN) - Final, Complete 10/20/19 Blood Culture - Final, Complete NO GROWTH AFTER 5 DAYS 10/20/19 Blood Culture - Final, Complete NO GROWTH AFTER 5 DAYS Lisseth Clark [facility] Oct 26, 2019 11:26
[2019-10-26 14:00] VITALS: BP 133/91
[2019-10-26] MEDS ORDERED: LIDOCAINE 1% MDV 20ML VIAL As Ordered ONE (14:48)
[2019-10-26] MEDS: SODIUM CHLORIDE 0.9% INJ 10 ML SYR IV SCH (18:00)
--- NOTE | 2019-10-26 20:22 | IPN ---
DATE: 10/26/2019 HISTORY: The patient is slightly over a month out from extensive vascular surgery for mesenteric ischemia. She was transferred back to [facility] on 10/20/2019. She has a hematoma in the retroperitoneum surrounding the area of her aortic celiac and aortic to superior mesenteric artery grafts. Her appetite has been poor with a poor oral intake. There remains a concern about a potential source for infection. Vital signs show that she had a maximum temperature (T-max) of 100.6 last evening. Her pulse is in the low to upper 80s. Blood pressure is generally in the 120s to 130s systolic. Intake and output show that yesterday she had 2360 in with 25 mL of urine recorded and several incontinent voids and incontinent bowel movements. PHYSICAL EXAMINATION: The patient is just returning from having a peripherally inserted central catheter (PICC) line placed when I came to see her. She appears quite and chronically ill but not in acute pain at this point. She is alert and seems oriented. Abdomen is soft with some persistent tenderness in the epigastrium. LABORATORY STUDIES: Today show a white count of 15,000, hemoglobin of 8, hematocrit 26, and a platelet count of 306,000. Chemistry profile shows no significant change from the last four days with a BUN of 6, creatinine 0.4, and a glucose of 87. She is now having frequent C- reactive proteins and today it was 12. Her cultures of the blood to date are no growth. She had a repeat CT scan today which shows a persistent hematoma in the retroperitoneum which is stable in size. There were no gas bubbles identified within the hematoma which would be very strongly suggestive of infection. Her pleural effusions remain. IMPRESSION: The patient remains stable. Her white count has gone down and up but continues to remain in the low to mid teens. Her C-reactive protein (CRP) remains quite elevated. The concern about possible infection persists. A CT scan of the abdomen and pelvis is stable with no evident change in her retroperitoneal hematoma. RECOMMENDATIONS: She now has a peripherally inserted central catheter (PICC) line and this will provide more certain access for IV antibiotics which should certainly be continued. I think it would be reasonable to recheck a CPA to see where her protein and albumin are at this point as I suspect her caloric intake is inadequate. REJI
[2019-10-26] MEDS: MAGNESIUM OXIDE 400 MG TAB (MAG-OX) PO SCH (21:56)
[2019-10-26 22:00] VITALS: BP_SYST 101; BP_SYST 95; BP_DIAS 57; BP_DIAS 58
[2019-10-26] MEDS: SODIUM CHLORIDE 0.9% INJ 10 ML SYR IV PRN ×2 (22:00→23:04)
[2019-10-26] MEDS: FLUCONAZOLE 400 MG in IV 1 EA IV SCH (23:05)
[2019-10-27] MEDS: METOPROLOL TART 25 MG TABLET PO SCH ×3 (00:11→23:33)
[2019-10-27] MEDS: MORPHINE 4 MG/ML 1ML VIAL/SYRINGE (J2270) IV PRN ×3 (01:04→16:46)
[2019-10-27] MEDS: SODIUM CHLORIDE 0.9% INJ 10 ML SYR IV PRN ×5 (01:04→06:07)
[2019-10-27] MEDS: MEROPENEM INJ 1 GM in IV 1 EA IV SCH ×3 (04:49→23:32)
[2019-10-27] MEDS: CYCLOBENZAPRINE 10 MG TAB PO PRN ×2 (04:49→11:18)
[2019-10-27 06:00] VITALS: BP 129/69
[2019-10-27 06:04] LABS: HEMATOCRIT 28.7 % (36.0-47.0); HEMOGLOBIN 8.8 g/dl (12.0-15.5); MEAN CORPUSCULAR HEMOGLOBIN 29.3 pg (27.0-33.0); MEAN CORPUSCULAR HGB CONC 30.7 g/dl (32.0-36.5); MEAN CORPUSCULAR VOLUME 95.7 fl (80.0-96.0); PLATELET COUNT, AUTOMATED 334 10^3/uL (150-450)
[2019-10-27] MEDS: SODIUM CHLORIDE 0.9% INJ 10 ML SYR IV SCH ×2 (06:07→16:46)
[2019-10-27 06:29] LABS: ALBUMIN 1.5 GM/DL (3.2-5.2); ALT/SGPT 7 U/L (12-78); BILIRUBIN,TOTAL 0.4 MG/DL (0.2-1.0); BLOOD UREA NITROGEN 4 MG/DL (7-18); CALCIUM LEVEL 7.4 MG/DL (8.8-10.2); CARBON DIOXIDE LEVEL 25 MEQ/L (21-32); CHLORIDE LEVEL 105 MEQ/L (98-107); GLOMERULAR FILTRATION RATE > 60.0 (>45); GLUCOSE, FASTING 94 MG/DL (70-100); POTASSIUM SERUM 4.5 MEQ/L (3.5-5.1); SODIUM LEVEL 134 MEQ/L (136-145); TOTAL PROTEIN 5.6 GM/DL (6.4-8.2)
[2019-10-27] MEDS: DOCUSATE SOD LIQ 100MG/10ML UDC PO SCH (08:45)
[2019-10-27] MEDS: PANTOPRAZOLE 40MG TAB (PROTONIX) PO SCH (08:46)
[2019-10-27] MEDS: oxyCODONE 5MG TAB PO PRN ×2 (08:48→14:46)
[2019-10-27] MEDS: GABAPENTIN 300 MG CAP PO SCH ×3 (08:48→23:32)
[2019-10-27 08:53] VITALS: BP 142/63
[2019-10-27] MEDS: ASPIRIN 81 MG CHEW TABLET PO SCH (09:19)
[2019-10-27] MEDS: ATORVASTATIN 20 MG TAB PO SCH (09:19)
[2019-10-27] MEDS: ENOXAPARIN 40 MG/0.4 ML SYRINGE (J1650) SC SCH (09:19)
--- NOTE | 2019-10-27 09:29 | IPNPDOC ---
Subjective Date Seen The patient was seen on 10/27/19. Subjective Chief Complaint/HPI Pt this morning states that she isn't feeling well. She tells me that she is going to the OR. She isn't sure why or who is taking her. General: Denies: Fatigue Constitutional: Denies: Chills, Fever Pulmonary: Denies: Dyspnea, Cough Cardiovascular: Denies: Chest Pain, Palpitations Gastrointestinal: Reports: Abdominal Pain; Denies: Nausea, Vomiting, Diarrhea Neurological: Denies: Weakness Psych: Reports: Mood Normal Objective Physical Examination General Exam: Positive: Alert, No Acute Distress ENT Exam: Positive: Mucous membr. moist/pink Chest Exam: Positive: Clear to auscultation, Diminished Heart Exam: Positive: Rate Normal, Regular Rhythm; Negative: Normal S1, Normal S2 Abdomen Exam: Positive: Normal bowel sounds, Tenderness (tender especially across left mid and upper abdomen.); Negative: Soft (distended, hard) Extremity Exam: Positive: Tenderness (still some tenderness right thigh but not worse and some edema but stump wound is intact. Left leg is well perfused and warm.); Negative: Edema Skin Exam: Positive: Breakdown (sacral area. 3 open areas stage 2/3, no induration no drainage); Negative: Nl turgor and temperature Neuro Exam: Positive: Normal Speech Psych Exam: Positive: Mental status NL (she thought she was going to the OR, this is not planned, she was oriented to person and place and time. ), Mood NL Assessment /Plan Problems (1) Fever Status: Acute Response to Treatment: Stable Problem Text: 10/26 T max 99.7, WBC down from 15 to 13 and CRP down from 12 to 10.9, cont with meropenem and Fluconazole. Mgmt per ID. GS following. 10/26/2019: T max 99.7. WBC 15,000 today CRP is improved at 12 from 13. Continue Meropenem and Fluconazole as recommended by ID. Reviewed patient's worsening condition. She declines transfer right now, states she'll consider it. CT report: unchanged. Bl cx negative 10/24 Last temp 10/22, WBC remains elevated, but has gone down slightly c/w yesterday. ID consulted yest, changed abx regimen from Ceftaroline/Flagyl to Meropenam/fluconazole. Concern for infected hematoma vs infected graph. 10/23 No temp in more than 24 h, last temp was 10/22 at 0600 101.5 F Johan consulted today. Currently on Ceftaroline/Flagyl. Blood cx from 10/21 Neg x2. 10/21 CT A & P with large hematoma. 10/22: continue to suspect hematoma residual in abdomen as source. monitoring. Dr. Stein has suggested ID consult which can be requested tomorrow. Continue IV antibiotics. multiple possible sources: post op abdomen if her graft is infected she will not do well; pleural effusion, will monitor after start of Rx. also recent UTI. blood cultures repeated. change abx to ceftaroline plus metronidazole. (2) Protein calorie malnutrition Status: Acute Problem Specific Plan: Monitor Clinically Problem Text: address with attending, likely would benefit from TPN. (3) UTI (urinary tract infection) Status: Acute Problem Specific Plan: Monitor Clinically Problem Text: 10/22: yeast like organism identified in urine. 10/21: due to recurrent fever, elevated WBC, antibiotic changed to ceftaroline plus metronidazole. Will need to obtain final cultures results from [facility]. Currently on Augmentin. (4) S/P AKA (above knee amputation) unilateral Problem Specific Plan: Monitor Clinically Problem Text: 10/23 Wound cont to appear clean, dry, no erythema, no drainage. 10/21: wound healing well, no redness, no dehiscence, no oozing. tender along medial upper thigh, no redness or induration 10/07/2019 Wound appears clean and dry. (5) Anemia Status: Chronic Problem Text: 10/26/2019: Hgb 8.3 today 10/24 Hgm 7.7 this morning, consent obtained, will transfuse 1 unit. 10/22: 7.9 Hgb today, stable. Admitted with Hgb 7.8, substantially lower than on DC 09/21/2019, hwowver pt has undergone mtp major surgeries, will need close f/u. Transfuse if less than 7.5 (6) Chronic mesenteric ischemia Status: Chronic Response to Treatment: Stable Problem Specific Plan: Monitor Clinically Problem Text: 10/21: surgery was complicated by hematoma in small bowel and repeat trip to OR. has hematoma on CT. Will ask Dr. Stein to see to help evaluate her tender abdomen and rising wbc. At this point she has been denied DVT prophylaxis, likely because of the post op hematoma, but graft function wo uld be lost if she thromboses so DVT prophylaxis will be resumed. 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 some compressive atelectasis. possible source of fever along with intraabdominal process. (9) Sacral pressure sore Status: Chronic Response to Treatment: Stable Problem Text: hydrocolloid dressing in place, continue. Plan/VTE VTE Prophylaxis Ordered?: Yes VS, I&O, 24H, Fishbone Vital Signs/I&O Vital Signs Date Time Temp Pulse Resp B/P (MAP) Pulse Ox O2 Delivery O2 Flow Rate FiO2 10/27/19 09:19 80 142/63 10/27/19 08:53 97.8 20 96 Nasal Cannula 1.0 I&O- Last 24 Hours up to 6 AM 10/27/19 06:00 Intake Total 1490 ml Output Total 650 ml Balance 840 ml Laboratory Data 24H LABS Laboratory Tests 2 10/27/19 05:33: Nucleated Red Blood Cells % (auto) 0.0, Anion Gap 4L, Glomerular Filtration Rate > 60.0, Calcium Level 7.4L, Total Bilirubin 0.4, Aspartate Amino Transf (AST/SGOT) 20, Alanine Aminotransferase (ALT/SGPT) 7L, Alkaline Phosphatase 132H, C-Reactive Protein, Quantitative 10.90H, Total Protein 5.6L, Albumin 1.5L, Albumin/Globulin Ratio 0.37L CBC/BMP Laboratory Tests 10/27/19 05:33 Microbiology Microbiology 10/26/19 Gram Stain - Final, Complete 10/26/19 Wound Culture - Final, Complete Yeast Like Organism 10/22/19 Blood Culture - Preliminary, Resulted No Growth after 72 hours. All specime... 10/22/19 Blood Culture - Preliminary, Resulted No Growth after 72 hours. All specime... 10/22/19 Urine Culture - Final, Complete Yeast Like Organism 10/20/19 Respiratory Virus Panel (PCR) (JOCELYN) - Final, Complete 10/20/19 Blood Culture - Final, Complete NO GROWTH AFTER 5 DAYS 10/20/19 Blood Culture - Final, Complete NO GROWTH AFTER 5 DAYS KENISHA LOPEZ PA-C Oct 27, 2019 09:29
[2019-10-27 11:00] VITALS: BP 125/69
[2019-10-27] MEDS: ACETAMINOPHEN TAB 650MG DOSE (2X325MG) PO PRN ×2 (11:19→23:49)
--- NOTE | 2019-10-27 12:43 | REP ---
PICC line insertion under ultrasound guidance. The procedure was performed by ALFREDO Gregory, under the direct supervision of Dr. Tripp. The risks and benefits of the procedure were explained to the patient and informed consent was obtained both verbally and written. Directly prior to the start of the procedure, a formal timeout was completed in the procedure room. The right basilic vein was localized using ultrasound guidance. The skin was prepped and draped in the sterile fashion. 1 ml 1% lidocaine 10 mg/ml was used as a local anesthetic. Using ultrasound guidance the right basilic vein was cannulated and a 0.018 guidewire was inserted and advanced to the SVC using fluoroscopic guidance. The needle was removed and a 5.5 Taiwanese dilator and peel-away sheath was inserted over the guidewire. A 5.5 Taiwanese duel lumen catheter was cut to the length of 35 cm. The dilator was removed and the catheter was inserted over the guide wire with the tip ending in the SVC. The peel-away sheath was removed and the catheter was flushed with heparinized saline as per hospital protocol. The catheter was affixed to the skin and a sterile dressing was applied. The patient tolerated the procedure well and there were no immediate complications. 0.1 minutes of fluoroscopy time was utilized for this procedure. Some fluoroscopic images are performed with last image hold technology. These images require no additional radiation. Reviewed by ALFREDO Hill 10/26/2019 04:04 P Electronically Signed by Everardo Tripp MD 10/26/2019 04:44 P
[2019-10-27 14:00] VITALS: BP 134/60
[2019-10-27 22:08] VITALS: BP 115/64
--- NOTE | 2019-10-27 22:47 | IPNPDOC ---
Text Note Date of Service The patient was seen on 10/27/19. NOTE Subjective: Patient is a 69-year-old female, history of PVD, DVT, SMA stenosis, L LE bypass, aortofemoral bypass graft, who underwent mesenteric angiogram with aortoceliac, aortoSMA bypass for whom a rapid response was called this evening. Upon arriving to the patient's room, nursing staff reported that patient has had a mental status change, no longer oriented to place or time. Nursing also noted left- sided facial droop with left-sided pronator drift. Objective: Gen.: Upon examination, patient's vitals were stable and she did not appear to be in any acute distress. She was oriented to person but neither place nor time. She was cooperative with examination. Cardiac: Regular rate and rhythm without any murmurs. Lungs: Clear to auscultation bilaterally Neuro: Slight facial droop noted on the left when patient was asked to smile. No discrepancy in eyebrow elevation bilaterally. No reported facial numbness or alteration in sensation. Strength 5 out of 5 in upper extremity is bilaterally. Strength 5 out of 5 in left lower extremity. Sensation intact in both LLE and distal aspect of patient's right AKA. Pronator drift on the left. A/P: Given patient's extensive comorbidities and recent surgery, she is not a candidate for thrombolytic therapy. Head CT without contrast will be ordered to evaluate for possible CVA/TIA. This was reviewed with the patient was in agreement with the plan. VS,Fishbone, I+O VS, Fishbone, I+O Laboratory Tests 10/27/19 05:33 Vital Signs Date Time Temp Pulse Resp B/P (MAP) Pulse Ox O2 Delivery O2 Flow Rate FiO2 10/27/19 16:56 19 10/27/19 14:00 97.6 83 134/60 (84) 95 Nasal Cannula 1.0 I&O- Last 24 Hours up to 6 AM 10/27/19 06:00 Intake Total 1490 ml Output Total 650 ml Balance 840 ml CASSIDY CHRISTOPHER DO Oct 27, 2019 22:47
[2019-10-27 23:00] VITALS: BP 103/56
--- NOTE | 2019-10-27 23:03 | REPVR ---
PROCEDURE INFORMATION: Exam: CT Head Without Contrast Exam date and time: 10/27/19 (10:33pm) Age: 69 years old Clinical indication: Altered mental status / memory loss. Confusion or disorientation. TECHNIQUE: Imaging protocol: Computed tomography of the head without contrast. Radiation optimization: All CT scans at this facility use at least one of these dose optimization techniques: automated exposure control; mA and/or kV adjustment per patient size (includes targeted exams where dose is matched to clinical indication); or iterative reconstruction. COMPARISON: CT HEAD of 08/30/16 FINDINGS: Brain: No acute hemorrhage. No cerebral edema. Age-related atrophic changes are noted. Periventricular and subcortical areas of low attenuation, compatible with chronic small vessel microischemic changes. Ventricles: Normal. No ventriculomegaly. Bones/joints: Unremarkable. No acute fracture. Sinuses: Visualized sinuses are unremarkable. No fluid levels. Mastoid air cells: Visualized mastoid air cells are well aerated. Soft tissues: Unremarkable. IMPRESSION: No acute intracranial pathology is appreciated. Chronic atrophic and microischemic changes. Electronically signed by: Sophia Augiar On 10/27/2019 23:02:50 PM
[2019-10-27] MEDS: FLUCONAZOLE 400 MG in IV 1 EA IV SCH (23:32)
[2019-10-27] MEDS: MAGNESIUM OXIDE 400 MG TAB (MAG-OX) PO SCH (23:32)
[2019-10-28] MEDS: SODIUM CHLORIDE 0.9% INJ 10 ML SYR IV PRN ×3 (00:30→21:39)
[2019-10-28] MEDS: MEROPENEM INJ 1 GM in IV 1 EA IV SCH ×3 (04:27→21:38)
[2019-10-28] MEDS: SODIUM CHLORIDE 0.9% INJ 10 ML SYR IV SCH ×2 (05:18→17:33)
[2019-10-28 06:00] VITALS: BP 122/66
[2019-10-28 06:00] LABS: HEMATOCRIT 26.8 % (36.0-47.0); HEMOGLOBIN 8.4 g/dl (12.0-15.5); MEAN CORPUSCULAR HEMOGLOBIN 29.9 pg (27.0-33.0); MEAN CORPUSCULAR HGB CONC 31.3 g/dl (32.0-36.5); MEAN CORPUSCULAR VOLUME 95.4 fl (80.0-96.0); PLATELET COUNT, AUTOMATED 328 10^3/uL (150-450); RED BLOOD COUNT 2.81 10^6/uL (4.00-5.40); WHITE BLOOD COUNT 11.6 10^3/uL (4.0-10.0)
[2019-10-28 06:18] LABS: ALBUMIN 1.4 GM/DL (3.2-5.2); ALT/SGPT 8 U/L (12-78); BILIRUBIN,TOTAL 0.5 MG/DL (0.2-1.0); BLOOD UREA NITROGEN 3 MG/DL (7-18); CARBON DIOXIDE LEVEL 26 MEQ/L (21-32); CHLORIDE LEVEL 105 MEQ/L (98-107); CREATININE FOR GFR 0.35 MG/DL (0.55-1.30); GLOMERULAR FILTRATION RATE > 60.0 (>45); GLUCOSE, FASTING 96 MG/DL (70-100); POTASSIUM SERUM 4.3 MEQ/L (3.5-5.1); SODIUM LEVEL 136 MEQ/L (136-145); TOTAL PROTEIN 6.3 GM/DL (6.4-8.2)
[2019-10-28] MEDS: PANTOPRAZOLE 40MG TAB (PROTONIX) PO SCH (08:23)
[2019-10-28] MEDS: DOCUSATE SOD LIQ 100MG/10ML UDC PO SCH (08:23)
[2019-10-28] MEDS: GABAPENTIN 300 MG CAP PO SCH ×3 (08:27→21:38)
[2019-10-28] MEDS: ENOXAPARIN 40 MG/0.4 ML SYRINGE (J1650) SC SCH (08:27)
[2019-10-28] MEDS: oxyCODONE 5MG TAB PO PRN ×2 (08:28→17:33)
[2019-10-28] MEDS: ATORVASTATIN 20 MG TAB PO SCH (08:28)
[2019-10-28] MEDS: CYCLOBENZAPRINE 10 MG TAB PO PRN ×2 (08:28→15:02)
[2019-10-28] MEDS: ASPIRIN 81 MG CHEW TABLET PO SCH (08:28)
[2019-10-28] MEDS: METOPROLOL TART 25 MG TABLET PO SCH (08:28)
--- NOTE | 2019-10-28 10:10 | IPNPDOC ---
Subjective Date Seen The patient was seen on 10/28/19. Subjective Chief Complaint/HPI Pt this morning wihtout new concerns. She states that she didn't eat breakfast although she doesn't usually. She states that she is eating about the same as she usually does. General: Reports: Fatigue Constitutional: Denies: Chills, Fever Pulmonary: Denies: Dyspnea, Cough Cardiovascular: Denies: Chest Pain, Palpitations Gastrointestinal: Denies: Nausea, Vomiting, Diarrhea Neurological: Denies: Weakness Psych: Reports: Mood Normal Objective Physical Examination General Exam: Positive: Alert, No Acute Distress ENT Exam: Positive: Mucous membr. moist/pink Chest Exam: Positive: Clear to auscultation, Diminished Heart Exam: Positive: Rate Normal, Regular Rhythm; Negative: Normal S1, Normal S2 Abdomen Exam: Positive: Normal bowel sounds, Tenderness (tender especially across left mid and upper abdomen.); Negative: Soft (distended, hard) Extremity Exam: Positive: Tenderness (still some tenderness right thigh but not worse and some edema but stump wound is intact. Left leg is well perfused and warm.); Negative: Edema Skin Exam: Positive: Breakdown (sacral area. 3 open areas stage 2/3, no induration no drainage); Negative: Nl turgor and temperature Neuro Exam: Positive: Normal Speech Psych Exam: Positive: Mental status NL (she thought she was going to the OR, this is not planned, she was oriented to person and place and time. ), Mood NL Assessment /Plan Problems (1) Fever Status: Acute Response to Treatment: Stable Problem Text: 10/27 T max 99.8, WBC cont to trend down, will cont with Meropenam and Fluconazone, ID following. GS saw pt 10/25, obtained albumin, hasn't documented further, pt likely to benefit from TPN, nursing to call GS. 10/26 T max 99.7, WBC down from 15 to 13 and CRP down from 12 to 10.9, cont with meropenem and Fluconazole. Mgmt per ID. GS following. 10/26/2019: T max 99.7. WBC 15,000 today CRP is improved at 12 from 13. Continue Meropenem and Fluconazole as recommended by ID. Reviewed patient's worsening condition. She declines transfer right now, states she'll consider it. CT report: unchanged. Bl cx negative 10/24 Last temp 10/22, WBC remains elevated, but has gone down slightly c/w yesterday. ID consulted yest, changed abx regimen from Ceftaroline/Flagyl to Meropenam/fluconazole. Concern for infected hematoma vs infected graph. 10/23 No temp in more than 24 h, last temp was 10/22 at 0600 101.5 F Johan consulted today. Currently on Ceftaroline/Flagyl. Blood cx from 10/21 Neg x2. 10/21 CT A & P with large hematoma. 10/22: continue to suspect hematoma residual in abdomen as source. monitoring. Dr. Stein has suggested ID consult which can be requested tomorrow. Continue IV antibiotics. multiple possible sources: post op abdomen if her graft is infected she will not do well; pleural effusion, will monitor after start of Rx. also recent UTI. blood cultures repeated. change abx to ceftaroline plus metronidazole. (2) Protein calorie malnutrition Status: Acute Problem Specific Plan: Monitor Clinically Problem Text: Requested nursing to reach out to . (3) UTI (urinary tract infection) Status: Acute Problem Specific Plan: Monitor Clinically Problem Text: 10/22: yeast like organism identified in urine. 10/21: due to recurrent fever, elevated WBC, antibiotic changed to ceftaroline plus metronidazole. Will need to obtain final cultures results from [facility]. Currently on Augmentin. (4) S/P AKA (above knee amputation) unilateral Problem Specific Plan: Monitor Clinically Problem Text: 10/23 Wound cont to appear clean, dry, no erythema, no drainage. 10/21: wound healing well, no redness, no dehiscence, no oozing. tender along medial upper thigh, no redness or induration 10/07/2019 Wound appears clean and dry. (5) Anemia Status: Chronic Problem Text: 10/27 Htb stable 8.4 this morning. 10/26/2019: Hgb 8.3 today 10/24 Hgm 7.7 this morning, consent obtained, will transfuse 1 unit. 10/22: 7.9 Hgb today, stable. Admitted with Hgb 7.8, substantially lower than on DC 09/21/2019, hwowver pt has undergone mtp major surgeries, will need close f/u. Transfuse if less than 7.5 (6) Chronic mesenteric ischemia Status: Chronic Response to Treatment: Stable Problem Specific Plan: Monitor Clinically Problem Text: 10/21: surgery was complicated by hematoma in small bowel and repeat trip to OR. has hematoma on CT. Will ask Dr. Stein to see to help evaluate her tender abdomen and rising wbc. At this point she has been denied DVT prophylaxis, likely because of the post op hematoma, but graft function would be lost if she thromboses so DVT prophylaxis will be resumed. 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 some compressive atelectasis. possible source of fever along with intraabdominal process. (9) Sacral pressure sore Status: Chronic Response to Treatment: Stable Problem Text: hydrocolloid dressing in place, continue. Plan/VTE VTE Prophylaxis Ordered?: Yes VS, I&O, 24H, Fishbone Vital Signs/I&O Vital Signs Date Time Temp Pulse Resp B/P (MAP) Pulse Ox O2 Delivery O2 Flow Rate FiO2 10/28/19 08:58 20 10/28/19 08:30 1.0 10/28/19 08:28 81 123/71 10/28/19 06:00 98.8 96 Nasal Cannula 10/27/19 22:08 93 I&O- Last 24 Hours up to 6 AM 10/28/19 06:00 Intake Total 1370 ml Output Total 2175 ml Balance -805 ml Laboratory Data 24H LABS Laboratory Tests 2 10/28/19 05:31: Nucleated Red Blood Cells % (auto) 0.0, Anion Gap 5L, Glomerular Filtration Rate > 60.0, Calcium Level 8.0L, Total Bilirubin 0.5, Aspartate Amino Transf (AST/SGOT) 19, Alanine Aminotransferase (ALT/SGPT) 8L, Alkaline Phosphatase 110, Total Protein 6.3L, Albumin 1.4L, Albumin/Globulin Ratio 0.29L CBC/BMP Laboratory Tests 10/28/19 05:31 Microbiology Microbiology 10/26/19 Gram Stain - Final, Complete 10/26/19 Wound Culture - Final, Complete Yeast Like Organism 10/22/19 Blood Culture - Final, Complete NO GROWTH AFTER 5 DAYS 10/22/19 Blood Culture - Final, Complete NO GROWTH AFTER 5 DAYS 10/22/19 Urine Culture - Final, Complete Yeast Like Organism 10/20/19 Respiratory Virus Panel (PCR) (JOCELYN) - Final, Complete 10/20/19 Blood Culture - Final, Complete NO GROWTH AFTER 5 DAYS 10/20/19 Blood Culture - Final, Complete NO GROWTH AFTER 5 DAYS KENISHA LOPEZ PA-C Oct 28, 2019 10:10
[2019-10-28] MEDS: MORPHINE 4 MG/ML 1ML VIAL/SYRINGE (J2270) IV PRN (11:42)
[2019-10-28] MEDS: FLUCONAZOLE 100 MG TAB PO SCH (11:42)
[2019-10-28 13:04] LABS: CHOLESTEROL LEVEL 61 MG/DL (<200); CHOLESTEROL RISK RATIO 3.812 (<5); HDL CHOLESTEROL 16 MG/DL (>40); LDL CHOLESTEROL 22 MG/DL (<100); NON-HDL-C 45 MG/DL; TRIGLYCERIDES LEVEL 117 MG/DL (<150)
--- NOTE | 2019-10-28 13:40 | IPN ---
INFECTIOUS DISEASE PROGRESS NOTE DATE: 10/28/2019 Renu is examined at bedside. She is feeling much better today. No nausea or vomiting. Has mild abdominal discomfort that is significantly improved from admission. She is tolerating all meds well, and white count continues to trend down along with the C-reactive protein (CRP), since she was transitioned over to fluconazole and meropenem. She remains afebrile and has no new complaints today. Denies chest pain, shortness of breath, cough. PHYSICAL EXAM: VITAL SIGNS: Temperature 98.8, pulse 81, respirations 20, blood pressure (BP) 122/66, MAP of 84, pulse oximetry 96% on 1 liter nasal cannula, maximum temperature (Tmax) 99.8 over the past 24 hours. She is lying comfortably in bed. No acute distress. Fully alert and oriented times three. Neck is supple. Cardiac: Regular rate and rhythm without murmur, clicks, or gallops. No peripheral edema. Lungs are clear throughout in upper [place] with bibasilar crackles. No accessory muscle usage. Abdomen is soft. Nontender, nondistended. Healing midline vertical scar from recent surgery with small 1 mm ulcer oozing out scant amounts of blood with clean, dry, intact dressing in place. No rebound, guarding, or rigidity. Extremities: Right above-knee amputation (AKA) is present without any oozing or signs of infection. Mild erythema at the site of the sutures. The area is soft. Left lower extremity intact without any deficits. Motor and sensation intact throughout. 1-2+ pulses in all limbs. LABS: WBC 11.6, down from 13 yesterday. This appears to be her best white count thus far. Hemoglobin and hematocrit (H and H) 8.4 and 26.8, platelets 320. Sodium and potassium 136, 1.3. BUN and creatinine 3 and 0.35. Abdominal wound culture from 10/26/2019 is positive for yeastlike organisms. Blood cultures are negative at 5 days, from 10/22/2019 and also 10/20/2019. MEDICATIONS: Patient is currently on day 5 of meropenem and fluconazole, status post 3 days of Augmentin from 10/20/2019 to 10/22/2019, and ceftaroline from 10/22/2019 to 10/24/2019, Flagyl from 10/22/2019 to 10/24/2019. IMPRESSION AND PLAN: 1. Persistently elevated white count, sedimentation rate, and C-reactive protein (CRP), and fevers despite initial broad-spectrum antibiotics. Suspected source of infection is recent graft versus stent versus, less likely, infectious hematoma. 2. Aortoiliac and aorto-superior mesenteric artery (SMA) bypass. 3. 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 4. Severe peripheral vascular disease with compartment syndrome and muscle ischemia, status post fasciotomy right above-knee amputation (AKA). 5. History abdominal wound dehiscence in September 2019, requiring recurrent abdominal intervention. 6. History of septic shock. Recently at [facility] in September 2019, requiring pressors and prolonged intubation. 7. History of bile duct stent, status post endoscopic retrograde cholangiopancreatography (ERCP) for choledocholithiasis. 8. Hypertension. 9. Dyslipidemia. 10. Chronic tobacco use. PLAN: Ms. Mendes is clinically improving since being transitioned over to meropenem and fluconazole 5 days ago. Has been afebrile, and white count continues to trend down to 11.6 today, which has been the best thus far since her admission. CRP has been trending down to 10.9 yesterday. Recommend continuing trending inflammatory markers and white count. Will switch her over to by mouth fluconazole. Continue on meropenem, pending clinical improvement. It is reassuring that she is doing much better and symptomatically improving as well. After discussing the hematoma with Dr. Ivet Henderson of interventional radiology, per her assessment, it does not appear to be infected, and she would not recommend draining. Continue clinically monitoring at this point. If Ms. Mendes starts to worsen again then, most likely, we will have to transfer her back to [facility] where the initial abdominal procedures were performed, given suspicion for possibly infected graft versus stent. She did have a right AKA performed on 10/07/2019 at [facility]. Sutures are still intact with mild erythema at the suturing sites. Will reach out to Dr. Stein for possible removal of the sutures to limit further infectious opportunity. Patient is also noted to be on nasal cannula, was asymptomatic and otherwise saturating well. Continue to wean off of oxygen back to her baseline room air as tolerated. Will continue following along. [facility]
[2019-10-28 14:00] VITALS: BP 99/58
[2019-10-28] MEDS: ACETAMINOPHEN TAB 650MG DOSE (2X325MG) PO PRN ×2 (15:02→21:38)
[2019-10-28 17:39] VITALS: BP 99/59
[2019-10-28] MEDS: MAGNESIUM OXIDE 400 MG TAB (MAG-OX) PO SCH (21:38)
[2019-10-28 22:00] VITALS: BP 102/62
[2019-10-28 22:15] VITALS: BP 99/59
[2019-10-28 23:53] VITALS: BP 98/59
[2019-10-29] MEDS: SODIUM CHLORIDE 0.9% INJ 10 ML SYR IV PRN ×5 (00:30→23:04)
[2019-10-29] MEDS: METOPROLOL TART 25 MG TABLET PO SCH ×3 (02:12→23:00)
[2019-10-29] MEDS: MEROPENEM INJ 1 GM in IV 1 EA IV SCH ×3 (05:41→23:00)
[2019-10-29 06:00] VITALS: BP 100/51
[2019-10-29 06:03] LABS: HEMATOCRIT 27.5 % (36.0-47.0); HEMOGLOBIN 8.6 g/dl (12.0-15.5); MEAN CORPUSCULAR HEMOGLOBIN 29.9 pg (27.0-33.0); MEAN CORPUSCULAR HGB CONC 31.3 g/dl (32.0-36.5); MEAN CORPUSCULAR VOLUME 95.5 fl (80.0-96.0); PLATELET COUNT, AUTOMATED 335 10^3/uL (150-450); RED BLOOD COUNT 2.88 10^6/uL (4.00-5.40); WHITE BLOOD COUNT 11.8 10^3/uL (4.0-10.0)
[2019-10-29] MEDS: SODIUM CHLORIDE 0.9% INJ 10 ML SYR IV SCH ×2 (06:46→17:02)
[2019-10-29] MEDS: ACETAMINOPHEN TAB 650MG DOSE (2X325MG) PO PRN (06:48)
[2019-10-29] MEDS: ATORVASTATIN 20 MG TAB PO SCH (08:37)
[2019-10-29] MEDS: CYCLOBENZAPRINE 10 MG TAB PO PRN ×3 (08:37→23:00)
[2019-10-29] MEDS: ASPIRIN 81 MG CHEW TABLET PO SCH (08:37)
[2019-10-29] MEDS: PANTOPRAZOLE 40MG TAB (PROTONIX) PO SCH (08:37)
[2019-10-29] MEDS: FLUCONAZOLE 100 MG TAB PO SCH (08:38)
[2019-10-29] MEDS: ENOXAPARIN 40 MG/0.4 ML SYRINGE (J1650) SC SCH (08:38)
[2019-10-29] MEDS: DOCUSATE SOD LIQ 100MG/10ML UDC PO SCH (08:38)
[2019-10-29] MEDS: GABAPENTIN 300 MG CAP PO SCH ×3 (08:39→22:59)
[2019-10-29] MEDS: oxyCODONE 5MG TAB PO PRN ×2 (10:56→17:03)
[2019-10-29 14:00] VITALS: BP 130/73
--- NOTE | 2019-10-29 14:43 | IPNPDOC ---
Subjective Date Seen The patient was seen on 10/29/19. Subjective Chief Complaint/HPI Ms. Mendes reports that she feels a little better today than she has. She reports that her right leg stump is hurting less. She also reports that her appetite is improving and she is working to eat the meals given to her. She is asking about when she may be able to go home. Nursing is concerned that she should be receiving nutritional supplement shakes, but they don't seem to be ordered. General: Reports: Normal Appetite Constitutional: Denies: Chills, Fever Pulmonary: Denies: Dyspnea, Cough Cardiovascular: Denies: Chest Pain, Palpitations Objective Physical Examination General Exam: Positive: Alert (laying in bed when I entered the room), No Acute Distress ENT Exam: Positive: Mucous membr. moist/pink Neck Exam: Positive: Supple; Negative: Lymphadenopathy Chest Exam: Positive: Clear to auscultation, Diminished Heart Exam: Positive: Rate Normal, Regular Rhythm; Negative: Normal S1, Normal S2 Abdomen Exam: Positive: Normal bowel sounds, Tenderness (now predominantly along the lower portion of her abdominal incision) Extremity Exam: Positive: Tenderness (there is only mild erythema and tenderness of the medial stump wound. Left leg is well perfused and warm.); Negative: Edema Skin Exam: Positive: Breakdown (sacral area. 3 open areas stage 2/3, no induration no drainage); Negative: Nl turgor and temperature Neuro Exam: Positive: Normal Speech Psych Exam: Positive: Mental status NL, Mood NL Assessment /Plan Problems (1) Protein calorie malnutrition Status: Acute Problem Specific Plan: Monitor Clinically Problem Text: She seems to be doing well with oral nutrition for today. I did order Ensure supplemental shakes for her. (2) Fever Status: Acute Response to Treatment: Stable Problem Text: 10/28 - she was up to 99.9 last night. Her white count seems to be stabilizing but is not yet normal. CRP was not done today, but is ordered for tomorrow. 10/27 T max 99.8, WBC cont to trend down, will cont with Meropenam and Fluconazone, ID following. saw pt 10/25, obtained albumin, hasn't documented further, pt likely to benefit from TPN, nursing to call GS. 10/26 T max 99.7, WBC down from 15 to 13 and CRP down from 12 to 10.9, cont with meropenem and Fluconazole. Mgmt per ID. GS following. 10/26/2019: T max 99.7. WBC 15,000 today CRP is improved at 12 from 13. Continue Meropenem and Fluconazole as recommended by ID. Reviewed patient's worsening condition. She declines transfer right now, states she'll consider it. CT report: unchanged. Bl cx negative 10/24 Last temp 10/22, WBC remains elevated, but has gone down slightly c/w yesterday. ID consulted yest, changed abx regimen from Ceftaroline/Flagyl to Meropenam/fluconazole. Concern for infected hematoma vs infected graph. 10/23 No temp in more than 24 h, last temp was 10/22 at 0600 101.5 F Johan consulted today. Currently on Ceftaroline/Flagyl. Blood cx from 10/21 Neg x2. 10/21 CT A & P with large hematoma. 10/22: continue to suspect hematoma residual in abdomen as source. monitoring. Dr. Stein has suggested ID consult which can be requested tomorrow. Continue IV antibiotics. multiple possible sources: post op abdomen if her graft is infected she will not do well; pleural effusion, will monitor after start of Rx. also recent UTI. blood cultures repeated. change abx to ceftaroline plus metronidazole. (3) UTI (urinary tract infection) Status: Acute Problem Specific Plan: Monitor Clinically Problem Text: 10/28 - she is on fluconazole through infectious disease 10/22: yeast like organism identified in urine. 10/21: due to recurrent fever, elevated WBC, antibiotic changed to ceftaroline plus metronidazole. Will need to obtain final cultures results from [facility]. Currently on Augmentin. (4) S/P AKA (above knee amputation) unilateral Problem Specific Plan: Monitor Clinically Problem Text: 10/28 - I'm not sure how long sutures should remain. Perhaps general surgery could assist with this determination. 10/23 Wound cont to appear clean, dry, no erythema, no drainage. 10/21: wound healing well, no redness, no dehiscence, no oozing. tender along medial upper thigh, no redness or induration 10/07/2019 Wound appears clean and dry. (5) Anemia Status: Chronic Problem Text: 10/28 - her hemoglobin is improving a little today. 10/27 Htb stable 8.4 this morning. 10/26/2019: Hgb 8.3 today 10/24 Hgm 7.7 this morning, consent obtained, will transfuse 1 unit. 10/22: 7.9 Hgb today, stable. Admitted with Hgb 7.8, substantially lower than on DC 09/21/2019, hwowver pt has undergone mtp major surgeries, will need close f/u. Transfuse if less than 7.5 (6) Chronic mesenteric ischemia Status: Chronic Response to Treatment: Stable Problem Specific Plan: Monitor Clinically Problem Text: Appreciate surgery's ongoing assistance in managing this. 10/21: surgery was complicated by hematoma in small bowel and repeat trip to OR. has hematoma on CT. Will ask Dr. Stein to see to help evaluate her tender abdomen and rising wbc. At this point she has been denied DVT prophylaxis, likely because of the post op hematoma, but graft function would be lost if she thromboses so DVT prophylaxis will be resumed. 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 some compressive atelectasis. possible source of fever along with intraabdominal process. (9) Sacral pressure sore Status: Chronic Response to Treatment: Stable Problem Text: hydrocolloid dressing in place, continue. Plan/VTE VTE Prophylaxis Ordered?: Yes (Lovenox) VS, I&O, 24H, Fishbone Vital Signs/I&O Vital Signs Date Time Temp Pulse Resp B/P (MAP) Pulse Ox O2 Delivery O2 Flow Rate FiO2 10/29/19 14:00 98.2 83 17 130/73 (92) 95 Nasal Cannula 0.5 10/27/19 22:08 93 I&O- Last 24 Hours up to 6 AM 10/29/19 05:59 Intake Total 820 ml Output Total 100 ml Balance 720 ml Laboratory Data 24H LABS Laboratory Tests 2 10/29/19 05:25: Nucleated Red Blood Cells % (auto) 0.0 CBC/BMP Laboratory Tests 10/29/19 05:25 Microbiology Microbiology 10/26/19 Gram Stain - Final, Complete 10/26/19 Wound Culture - Final, Complete Yeast Like Organism 10/22/19 Blood Culture - Final, Complete NO GROWTH AFTER 5 DAYS 10/22/19 Blood Culture - Final, Complete NO GROWTH AFTER 5 DAYS 10/22/19 Urine Culture - Final, Complete Yeast Like Organism 10/20/19 Respiratory Virus Panel (PCR) (JOCELYN) - Final, Complete 10/20/19 Blood Culture - Final, Complete NO GROWTH AFTER 5 DAYS 10/20/19 Blood Culture - Final, Complete NO GROWTH AFTER 5 DAYS Jaziel Montoya MD Oct 29, 2019 2:43 pm
[2019-10-29 22:00] VITALS: BP 132/73
[2019-10-29] MEDS: MAGNESIUM OXIDE 400 MG TAB (MAG-OX) PO SCH (22:59)
[2019-10-30] MEDS: SODIUM CHLORIDE 0.9% INJ 10 ML SYR IV PRN ×4 (03:58→23:50)
[2019-10-30] MEDS: ACETAMINOPHEN TAB 650MG DOSE (2X325MG) PO PRN ×3 (03:59→21:27)
[2019-10-30] MEDS: MEROPENEM INJ 1 GM in IV 1 EA IV SCH ×3 (04:00→21:25)
[2019-10-30] MEDS: SODIUM CHLORIDE 0.9% INJ 10 ML SYR IV SCH ×2 (05:21→17:22)
[2019-10-30 05:57] LABS: HEMATOCRIT 28.3 % (36.0-47.0); MEAN CORPUSCULAR HGB CONC 31.8 g/dl (32.0-36.5); MEAN CORPUSCULAR VOLUME 94.3 fl (80.0-96.0); PLATELET COUNT, AUTOMATED 345 10^3/uL (150-450); WHITE BLOOD COUNT 11.4 10^3/uL (4.0-10.0)
[2019-10-30 06:00] VITALS: BP 126/69
[2019-10-30 06:27] LABS: ALBUMIN 1.5 GM/DL (3.2-5.2); BLOOD UREA NITROGEN 6 MG/DL (7-18); CALCIUM LEVEL 7.7 MG/DL (8.8-10.2); CARBON DIOXIDE LEVEL 24 MEQ/L (21-32); CHLORIDE LEVEL 102 MEQ/L (98-107); CREATININE FOR GFR 0.37 MG/DL (0.55-1.30); GLOMERULAR FILTRATION RATE > 60.0 (>45); GLUCOSE, FASTING 106 MG/DL (70-100); PHOSPHORUS LEVEL 2.8 MG/DL (2.5-4.9); POTASSIUM SERUM 4.3 MEQ/L (3.5-5.1); SODIUM LEVEL 133 MEQ/L (136-145)
[2019-10-30] MEDS: DOCUSATE SOD LIQ 100MG/10ML UDC PO SCH (09:00)
[2019-10-30] MEDS: ATORVASTATIN 20 MG TAB PO SCH (09:25)
[2019-10-30] MEDS: PANTOPRAZOLE 40MG TAB (PROTONIX) PO SCH (09:25)
[2019-10-30] MEDS: ASPIRIN 81 MG CHEW TABLET PO SCH (09:25)
[2019-10-30] MEDS: GABAPENTIN 300 MG CAP PO SCH ×3 (09:25→21:27)
[2019-10-30] MEDS: METOPROLOL TART 25 MG TABLET PO SCH ×2 (09:27→21:26)
[2019-10-30] MEDS: FLUCONAZOLE 100 MG TAB PO SCH (09:28)
[2019-10-30] MEDS: ENOXAPARIN 40 MG/0.4 ML SYRINGE (J1650) SC SCH (09:28)
[2019-10-30 14:00] VITALS: BP 113/77
--- NOTE | 2019-10-30 17:06 | IPNPDOC ---
Subjective Date Seen The patient was seen on 10/30/19. Subjective Chief Complaint/HPI Renu reports that she is feeling pretty good today. She is able to move her R LE stump more than she has been in the past and she is excited about this. General: Reports: Normal Appetite Pulmonary: Denies: Dyspnea, Cough Cardiovascular: Denies: Chest Pain, Palpitations Genitourinary: Denies: Dysuria Psych: Reports: Mood Normal Objective Physical Examination General Exam: Positive: Alert (laying in bed when I entered the room), No Acute Distress Eye Exam: Positive: Conjunctiva & lids normal; Negative: Sclera icteric ENT Exam: Positive: Mucous membr. moist/pink Neck Exam: Positive: Supple; Negative: Lymphadenopathy Chest Exam: Positive: Clear to auscultation, Diminished Heart Exam: Positive: Rate Normal, Regular Rhythm; Negative: Normal S1, Normal S2 Abdomen Exam: Positive: Normal bowel sounds, Tenderness (today it is along the entire incision including the upper portion. Her abdomen doesn't look more distended, but I wonder if it is just a little more that is giving these symptom changes. ) Extremity Exam: Positive: Tenderness (the erythema of the R stump wound has almost entirely resolved. Left leg is well perfused and warm.); Negative: Edema Skin Exam: Positive: Breakdown (sacral area. 3 open areas stage 2/3, no induration no drainage); Negative: Nl turgor and temperature Neuro Exam: Positive: Normal Speech Psych Exam: Positive: Mental status NL, Mood NL Assessment /Plan Problems (1) Protein calorie malnutrition Status: Acute Problem Specific Plan: Monitor Clinically Problem Text: She seems to still be doing well with oral nutrition for today. She is drinking the Ensure supplemental shakes although she doesn't like them very much. I'll see if we can work with nursing to make the more palatable for her. (2) Fever Status: Acute Response to Treatment: Stable Problem Text: 10/29 - she was finally afebrile for 24 hours. We will continue to monitor. 10/28 - she was up to 99.9 last night. Her white count seems to be stabilizing but is not yet normal. CRP was not done today, but is ordered for tomorrow. 10/27 T max 99.8, WBC cont to trend down, will cont with Meropenam and Fluconazone, ID following. GS saw pt 10/25, obtained albumin, hasn't documented further, pt likely to benefit from TPN, nursing to call GS. 10/26 T max 99.7, WBC down from 15 to 13 and CRP down from 12 to 10.9, cont with meropenem and Fluconazole. Mgmt per ID. GS following. 10/26/2019: T max 99.7. WBC 15,000 today CRP is improved at 12 from 13. Continue Meropenem and Fluconazole as recommended by ID. Reviewed patient's worsening condition. She declines transfer right now, states she'll consider it. CT report: unchanged. Bl cx negative 10/24 Last temp 10/22, WBC remains elevated, but has gone down slightly c/w yesterday. ID consulted yest, changed abx regimen from Ceftaroline/Flagyl to Meropenam/fluconazole. Concern for infected hematoma vs infected graph. 10/23 No temp in more than 24 h, last temp was 10/22 at 0600 101.5 F Johan consulted today. Currently on Ceftaroline/Flagyl. Blood cx from 10/21 Neg x2. 10/21 CT A & P with large hematoma. 10/22: continue to suspect hematoma residual in abdomen as source. monitoring. Dr. Stein has suggested ID consult which can be requested tomorrow. Continue IV antibiotics. multiple possible sources: post op abdomen if her graft is infected she will not do well; pleural effusion, will monitor after start of Rx. also recent UTI. blood cultures repeated. change abx to ceftaroline plus metronidazole. (3) UTI (urinary tract infection) Status: Acute Problem Specific Plan: Monitor Clinically Problem Text: She is on fluconazole through infectious disease and this seems to be helping to control her infection. 10/22: yeast like organism identified in urine. 10/21: due to recurrent fever, elevated WBC, antibiotic changed to ceftaroline plus metronidazole. Will need to obtain final cultures results from [facility]. Currently on Augmentin. (4) Anemia Status: Chronic Problem Text: Her hemoglobin continues to improve. We'll continue to monitor. 10/28 - her hemoglobin is improving a little today. 10/27 Htb stable 8.4 this morning. 10/26/2019: Hgb 8.3 today 10/24 Hgm 7.7 this morning, consent obtained, will transfuse 1 unit. 10/22: 7.9 Hgb today, stable. Admitted with Hgb 7.8, substantially lower than on DC 09/21/2019, hwowver pt has undergone mtp major surgeries, will need close f/u. Transfuse if less than 7.5 (5) S/P AKA (above knee amputation) unilateral Problem Specific Plan: Monitor Clinically Problem Text: 10/28 - I'm not sure how long sutures should remain. Perhaps general surgery could assist with this determination. 10/23 Wound cont to appear clean, dry, no erythema, no drainage. 10/21: wound healing well, no redness, no dehiscence, no oozing. tender along medial upper thigh, no redness or induration 10/07/2019 Wound appears clean and dry. (6) Chronic mesenteric ischemia Status: Chronic Response to Treatment: Stable Problem Specific Plan: Monitor Clinically Problem Text: Appreciate surgery's ongoing assistance in managing this. 10/21: surgery was complicated by hematoma in small bowel and repeat trip to OR. has hematoma on CT. Will ask Dr. Stein to see to help evaluate her tender abdomen and rising wbc. At this point she has been denied DVT prophylaxis, likely because of the post op hematoma, but graft function would be lost if she thromboses so DVT prophylaxis will be resumed. 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 some compressive atelectasis. possible source of fever along with intraabdominal process. (9) Sacral pressure sore Status: Chronic Response to Treatment: Stable Problem Text: hydrocolloid dressing in place, continue. Plan/VTE VTE Prophylaxis Ordered?: Yes (Lovenox) VS, I&O, 24H, Fishbone Vital Signs/I&O Vital Signs Date Time Temp Pulse Resp B/P (MAP) Pulse Ox O2 Delivery O2 Flow Rate FiO2 10/30/19 14:00 96.8 81 19 113/77 (89) 92 Room Air 10/29/19 22:00 10/27/19 22:08 93 I&O- Last 24 Hours up to 6 AM 10/30/19 06:00 Intake Total 2270 ml Output Total 1450 ml Balance 820 ml Laboratory Data 24H LABS Laboratory Tests 2 10/30/19 05:24: Nucleated Red Blood Cells % (auto) 0.0, Anion Gap 7L, Glomerular Filtration Rate > 60.0, Calcium Level 7.7L, Phosphorus Level 2.8, C-Reactive Protein, Quantitative 10.10H, Albumin 1.5L CBC/BMP Laboratory Tests 10/30/19 05:24 Microbiology Microbiology 10/26/19 Gram Stain - Final, Complete 10/26/19 Wound Culture - Final, Complete Yeast Like Organism 10/22/19 Blood Culture - Final, Complete NO GROWTH AFTER 5 DAYS 10/22/19 Blood Culture - Final, Complete NO GROWTH AFTER 5 DAYS 10/22/19 Urine Culture - Final, Complete Yeast Like Organism 10/20/19 Respiratory Virus Panel (PCR) (JOCELYN) - Final, Complete 10/20/19 Blood Culture - Final, Complete NO GROWTH AFTER 5 DAYS 10/20/19 Blood Culture - Final, Complete NO GROWTH AFTER 5 DAYS Jaziel Montoya MD Oct 30, 2019 5:06 pm
[2019-10-30] MEDS: MAGNESIUM OXIDE 400 MG TAB (MAG-OX) PO SCH (21:26)
[2019-10-30 22:00] VITALS: BP 130/70
[2019-10-31] MEDS: SODIUM CHLORIDE 0.9% INJ 10 ML SYR IV PRN ×3 (05:49→14:22)
[2019-10-31] MEDS: MEROPENEM INJ 1 GM in IV 1 EA IV SCH ×3 (05:49→21:53)
[2019-10-31] MEDS: ACETAMINOPHEN TAB 650MG DOSE (2X325MG) PO PRN ×3 (05:49→17:08)
[2019-10-31 06:00] VITALS: BP 132/70
[2019-10-31 06:06] LABS: BASO # 0.1 10^3/uL (0.0-0.2); BASO % 0.7 % (0.0-1.0); EOS # 0.2 10^3/uL (0.0-0.5); EOS % 2.2 % (0.0-3.0); HEMATOCRIT 30.2 % (36.0-47.0); HEMOGLOBIN 9.7 g/dl (12.0-15.5); LYMPH # 1.7 10^3/uL (1.5-5.0); LYMPH % 16.3 % (24.0-44.0); MEAN CORPUSCULAR HEMOGLOBIN 30.3 pg (27.0-33.0); MEAN CORPUSCULAR HGB CONC 32.1 g/dl (32.0-36.5); MEAN CORPUSCULAR VOLUME 94.4 fl (80.0-96.0); MONO % 9.6 % (0.0-5.0); NEUTROPHILS # 7.2 10^3/uL (1.5-8.5); NEUTROPHILS % 70.3 % (36.0-66.0); PLATELET COUNT, AUTOMATED 368 10^3/uL (150-450); WHITE BLOOD COUNT 10.3 10^3/uL (4.0-10.0)
[2019-10-31 06:29] LABS: ALBUMIN 1.6 GM/DL (3.2-5.2); BLOOD UREA NITROGEN 6 MG/DL (7-18); C REACTIVE PROTEIN QUANTITATIV 9.44 MG/DL (0.00-0.30); CALCIUM LEVEL 7.8 MG/DL (8.8-10.2); CARBON DIOXIDE LEVEL 26 MEQ/L (21-32); CHLORIDE LEVEL 106 MEQ/L (98-107); CREATININE FOR GFR 0.39 MG/DL (0.55-1.30); GLOMERULAR FILTRATION RATE > 60.0 (>45); GLUCOSE, FASTING 87 MG/DL (70-100); PHOSPHORUS LEVEL 3.3 MG/DL (2.5-4.9); POTASSIUM SERUM 4.3 MEQ/L (3.5-5.1); SODIUM LEVEL 135 MEQ/L (136-145)
[2019-10-31] MEDS: SODIUM CHLORIDE 0.9% INJ 10 ML SYR IV SCH ×2 (06:42→17:03)
[2019-10-31] MEDS: METOPROLOL TART 25 MG TABLET PO SCH ×2 (08:57→21:53)
[2019-10-31] MEDS: PANTOPRAZOLE 40MG TAB (PROTONIX) PO SCH (08:57)
[2019-10-31] MEDS: ATORVASTATIN 20 MG TAB PO SCH (08:57)
[2019-10-31] MEDS: ASPIRIN 81 MG CHEW TABLET PO SCH (08:57)
[2019-10-31] MEDS: DOCUSATE SOD LIQ 100MG/10ML UDC PO SCH ×2 (08:58→09:00)
[2019-10-31] MEDS: GABAPENTIN 300 MG CAP PO SCH ×3 (08:58→21:53)
[2019-10-31] MEDS: FLUCONAZOLE 100 MG TAB PO SCH (08:58)
[2019-10-31] MEDS: ENOXAPARIN 40 MG/0.4 ML SYRINGE (J1650) SC SCH (08:59)
--- NOTE | 2019-10-31 11:21 | IPNPDOC ---
Subjective Date Seen The patient was seen on 10/31/19. Subjective Chief Complaint/HPI Pt this morning states that for the last 2-3 days she has had worsened abd pain. She deneis fevers or chills, she is eating better. General: Denies: Fatigue Constitutional: Denies: Chills, Fever Pulmonary: Denies: Dyspnea, Cough Cardiovascular: Denies: Chest Pain, Palpitations Gastrointestinal: Reports: Abdominal Pain; Denies: Nausea, Vomiting Musculoskeletal: Denies: Neck Pain Neurological: Reports: Weakness Psych: Reports: Mood Normal Objective Physical Examination General Exam: Positive: Alert (laying in bed when I entered the room), No Acute Distress ENT Exam: Positive: Mucous membr. moist/pink Neck Exam: Positive: Supple; Negative: Lymphadenopathy Chest Exam: Positive: Clear to auscultation, Diminished Heart Exam: Positive: Rate Normal, Regular Rhythm; Negative: Normal S1, Normal S2 Abdomen Exam: Positive: Normal bowel sounds, Tenderness (now predominantly along the lower portion of her abdominal incision) Extremity Exam: Positive: Tenderness (there is only mild erythema and tenderness of the medial stump wound. Left leg is well perfused and warm.); Negative: Edema Skin Exam: Positive: Breakdown (sacral area. 3 open areas stage 2/3, no i nduration no drainage); Negative: Nl turgor and temperature Neuro Exam: Positive: Normal Speech Psych Exam: Positive: Mental status NL, Mood NL Assessment /Plan Problems (1) Abdominal hematoma Status: Chronic Problem Text: caution on LMWH, asa 10/30 given increased epigastric pain, recheck CT i (2) Abdominal pain Status: Acute Response to Treatment: Stable, Improving Problem Text: HD oxy IR 5 q4H prn 10/30 decreased oxy 10 to 5 q4H prn given lethargy p 10 dose (3) Fever Status: Resolved Response to Treatment: Stable Problem Text: D8 sydnee/D4 flucon 10/27 last temp was 10/27 100 10/30 WBC 10.3 (10/23 16.6), CRP 9 (10/19 15) 10/21 BCX2 NG 10/21 abd WCX few yeast 10/21 UCX 4K yeast multiple possible sources: post op abdomen if her graft is infected she will not do well; pleural effusion, will monitor after start of Rx. also recent UTI. blood cultures repeated. change abx to ceftaroline plus metronidazole. 10/25 CT AP: The of the patient's known upper abdominal periaortic hematoma is unchanged in size. There is no evidence of air or gas bubbles within the hematoma or inflammatory changes in the retroperitoneum adjacent to the hematoma to suggest infection. There are bilateral pleural effusions, unchanged. There is no ascites. No adenopathy. The bilateral Bosniak type 1 renal cysts are unchanged. The small left renal cortical infarct is unchanged. The common biliary duct stent is unchanged. Endovascular grafts in the left iliac and femoral arteries are unchanged. Postsurgical changes in the anterior abdominal wall has slightly decreased. (4) Protein calorie malnutrition Status: Acute Problem Specific Plan: Monitor Clinically Problem Text: 10/30 Alb is up slightly, monitor. 10/29 She seems to still be doing well with oral nutrition for today. She is drinking the Ensure supplemental shakes although she doesn't like them very much. I'll see if we can work with nursing to make the more palatable for her. (5) UTI (urinary tract infection) Status: Resolved Problem Specific Plan: Monitor Clinically Problem Text: She is on fluconazole through infectious disease and this seems to be helping to control her infection. 10/22: yeast like organism identified in urine. 10/21: due to recurrent fever, elevated WBC, antibiotic changed to ceftaroline plus metronidazole. Will need to obtain final cultures results from [facility]. Currently on Augmentin. (6) Anemia Status: Chronic Problem Text: baseline hgb 09/21/19 12.5 10/30 9.7 10/24 7.7 sp 1u PRBC (7) S/P AKA (above knee amputation) unilateral Problem Specific Plan: Monitor Clinically Problem Text: 10/30 nursing to address with GS whether the sutures should be removed or remain. 10/28 - I'm not sure how long sutures should remain. Perhaps general surgery could assist with this determination. 10/23 Wound cont to appear clean, dry, no erythema, no drainage. 10/21: wound healing well, no redness, no dehiscence, no oozing. tender along medial upper thigh, no redness or induration 10/07/2019 Wound appears clean and dry. (8) Chronic mesenteric ischemia Status: Chronic Response to Treatment: Stable Problem Specific Plan: Monitor Clinically Problem Text: Appreciate surgery's ongoing assistance in managing this. 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 some compressive atelectasis. possible source of fever along with intraabdominal process. (11) Sacral pressure sore Status: Chronic Response to Treatment: Stable Problem Text: hydrocolloid dressing in place, continue. Plan/VTE VTE Prophylaxis Ordered?: Yes (Lovenox) VS, I&O, 24H, Fishbone Vital Signs/I&O Vital Signs Date Time Temp Pulse Resp B/P (MAP) Pulse Ox O2 Delivery O2 Flow Rate FiO2 10/31/19 08:57 85 139/74 10/31/19 06:00 98.6 16 94 Room Air 10/29/19 22:00 10/27/19 22:08 93 I&O- Last 24 Hours up to 6 AM 10/31/19 06:00 Intake Total 915 ml Output Total 1650 ml Balance -735 ml Laboratory Data 24H LABS Laboratory Tests 2 10/31/19 05:24: Immature Granulocyte % (Auto) 0.9, Neutrophils (%) (Auto) 70.3H, Lymphocytes (%) (Auto) 16.3L, Monocytes (%) (Auto) 9.6H, Eosinophils (%) (Auto) 2.2, Basophils (%) (Auto) 0.7, Neutrophils # (Auto) 7.2, Lymphocytes # (Auto) 1.7, Monocytes # (Auto) 1.0H, Eosinophils # (Auto) 0.2, Basophils # (Auto) 0.1, Nucleated Red Blood Cells % (auto) 0.0, Anion Gap 3L, Glomerular Filtration Rate > 60.0, Calcium Level 7.8L, Phosphorus Level 3.3, C-Reactive Protein, Quantitative 9.44H, Albumin 1.6L CBC/BMP Laboratory Tests 10/31/19 05:24 Microbiology Microbiology 10/26/19 Gram Stain - Final, Complete 10/26/19 Wound Culture - Final, Complete Yeast Like Organism 10/22/19 Blood Culture - Final, Complete NO GROWTH AFTER 5 DAYS 10/22/19 Blood Culture - Final, Complete NO GROWTH AFTER 5 DAYS 10/22/19 Urine Culture - Final, Complete Yeast Like Organism KENISHA LOPEZ PA-C 16, 2020 11:21 Hilton Aguiar M.D. Oct 31, 2019 17:50
[2019-10-31 14:00] VITALS: BP 124/70
[2019-10-31] MEDS: GASTROGRAFIN SOLUTION 30ML PO SCH ×2 (19:07→19:52)
[2019-10-31] MEDS ORDERED: ISOVUE-370 76% 100ML VIAL (Q9967) As Ordered ONE (20:50)
[2019-10-31] MEDS: MAGNESIUM OXIDE 400 MG TAB (MAG-OX) PO SCH (21:51)
[2019-10-31] MEDS: oxyCODONE 5MG TAB PO PRN (21:52)
[2019-10-31 22:00] VITALS: BP 149/72
--- NOTE | 2019-10-31 22:19 | REPVR ---
PROCEDURE INFORMATION: Exam: CT Abdomen And Pelvis With Contrast Exam date and time: 10/31/2019 9:54 PM Age: 69 years old Clinical indication: Abdominal pain; Prior surgery; Additional info: Increased abdominal pain TECHNIQUE: Imaging protocol: Computed tomography of the abdomen and pelvis with intravenous contrast. Radiation optimization: All CT scans at this facility use at least one of these dose optimization techniques: automated exposure control; mA and/or kV adjustment per patient size (includes targeted exams where dose is matched to clinical indication); or iterative reconstruction. Contrast material: ISOVUE 370; Contrast volume: 100 ml; Contrast route: IV; COMPARISON: CT ABD PELVIS WITH CONTRAST 10/26/2019 8:21 AM FINDINGS: Lungs: Mild left lower lobe compressive atelectasis with minimal bibasilar fibro-atelectatic change and interstitial prominence. Pleural space: Mild left pleural effusion. Liver: The liver attenuation is 87 Hounsfield units and the spleen is 143 Hounsfield units. Gallbladder and bile ducts: There is a biliary stent in position with mild pneumobilia which is similar to the prior study. Absent gallbladder. Pancreas: Induration about the pancreatic head and neck which may be slightly decreased. Spleen: Normal. No splenomegaly. Adrenals: Normal. No mass. Kidneys and ureters: There are bilateral renal cysts measuring up to 4.0 cm on the right with a Hounsfield measurement of 11 and consistent with Bosniak 1 cysts. Focal parenchymal thinning in the posterior left kidney. Stomach and bowel: Wall thickening of the gastric antrum which is adjacent to the apparent low-attenuation collection and may reflect some secondary edema. Appendix: A normal appendix is seen. Intraperitoneal space: Unremarkable. No free air. No significant fluid collection. Retroperitoneal space: Low-attenuation collection which extends from adjacent to the distal esophagus through the diaphragmatic hiatus through the central retroperitoneum around the celiac artery and proximal branches and around the anterior and posterior aspect of the pancreatic head which demonstrates a Hounsfield measurement of 41. 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 Vasculature: There is moderate atherosclerotic calcification of the abdominal aorta with extension into the iliac arteries with a left common iliac artery stent. Irregular narrowing of the [place] proximal celiac artery with suggestion of a more proximal bypass graft. 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 Lymph nodes: Unremarkable. No enlarged lymph nodes. Bladder: Unremarkable as visualized. Reproductive: Unremarkable as visualized. Bones/joints: Right hip hemiprosthesis in position. Degenerative changes of the lumbar spine with anterolisthesis of L4 relative to L5. There is diffuse compression of T12 and L1 and superior endplate depression of L1-L3. Soft tissues: Unremarkable. IMPRESSION: 1. Slightly decreased pancreatitis since 10/26/2019. 2. 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 3. Irregular segmental stenosis of the proximal [place] celiac artery with probable bypass graft more proximal. There appears to be an irregular extension of contrast from the hepatic artery suggesting a pseudoaneurysm within the pseudocyst which is slightly increased in size since the prior study. 4. 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 5. Mild left pleural effusion with mild left lower lobe compressive atelectasis which is decreased since the prior study. There is resolution of right pleural effusion. 6. Status post cholecystectomy. Electronically signed by: Black Carey On 10/31/2019 22:19:39 PM
[2019-11-01] MEDS: MEROPENEM INJ 1 GM in IV 1 EA IV SCH ×3 (05:25→21:59)
[2019-11-01] MEDS: SODIUM CHLORIDE 0.9% INJ 10 ML SYR IV SCH ×2 (05:46→18:28)
[2019-11-01 06:00] VITALS: BP 122/69
[2019-11-01 06:18] LABS: BASO % 0.4 % (0.0-1.0); EOS # 0.2 10^3/uL (0.0-0.5); EOS % 1.9 % (0.0-3.0); HEMATOCRIT 29.8 % (36.0-47.0); HEMOGLOBIN 9.5 g/dl (12.0-15.5); LYMPH # 1.5 10^3/uL (1.5-5.0); LYMPH % 16.2 % (24.0-44.0); MEAN CORPUSCULAR HEMOGLOBIN 29.8 pg (27.0-33.0); MEAN CORPUSCULAR HGB CONC 31.9 g/dl (32.0-36.5); MEAN CORPUSCULAR VOLUME 93.4 fl (80.0-96.0); MONO # 0.8 10^3/uL (0.0-0.8); MONO % 9.2 % (0.0-5.0); NEUTROPHILS # 6.6 10^3/uL (1.5-8.5); NEUTROPHILS % 71.8 % (36.0-66.0); PLATELET COUNT, AUTOMATED 344 10^3/uL (150-450); RED BLOOD COUNT 3.19 10^6/uL (4.00-5.40); WHITE BLOOD COUNT 9.1 10^3/uL (4.0-10.0)
[2019-11-01 06:40] LABS: ALBUMIN 1.6 GM/DL (3.2-5.2); ALT/SGPT 12 U/L (12-78); BILIRUBIN,TOTAL 0.5 MG/DL (0.2-1.0); BLOOD UREA NITROGEN 7 MG/DL (7-18); C REACTIVE PROTEIN QUANTITATIV 8.48 MG/DL (0.00-0.30); CALCIUM LEVEL 8.3 MG/DL (8.8-10.2); CARBON DIOXIDE LEVEL 24 MEQ/L (21-32); CHLORIDE LEVEL 105 MEQ/L (98-107); CREATININE FOR GFR 0.36 MG/DL (0.55-1.30); GLOMERULAR FILTRATION RATE > 60.0 (>45); GLUCOSE, FASTING 87 MG/DL (70-100); POTASSIUM SERUM 4.3 MEQ/L (3.5-5.1); SODIUM LEVEL 133 MEQ/L (136-145)
[2019-11-01] MEDS: DOCUSATE SOD LIQ 100MG/10ML UDC PO SCH (09:00)
[2019-11-01] MEDS: PANTOPRAZOLE 40MG TAB (PROTONIX) PO SCH (09:47)
[2019-11-01] MEDS: FLUCONAZOLE 100 MG TAB PO SCH (09:47)
[2019-11-01] MEDS: GABAPENTIN 300 MG CAP PO SCH ×3 (09:47→21:59)
[2019-11-01] MEDS: ASPIRIN 81 MG CHEW TABLET PO SCH (09:47)
[2019-11-01] MEDS: ATORVASTATIN 20 MG TAB PO SCH (09:47)
[2019-11-01] MEDS: oxyCODONE 5MG TAB PO PRN ×3 (09:48→21:59)
[2019-11-01] MEDS: ENOXAPARIN 40 MG/0.4 ML SYRINGE (J1650) SC SCH (09:50)
[2019-11-01] MEDS: METOPROLOL TART 25 MG TABLET PO SCH ×2 (09:50→21:00)
[2019-11-01 14:00] VITALS: BP 138/79
[2019-11-01] MEDS: SODIUM CHLORIDE 0.9% INJ 10 ML SYR IV PRN (14:33)
[2019-11-01 16:06] LABS: LIPASE 121 U/L (73-393)
--- NOTE | 2019-11-01 18:48 | IPNPDOC ---
Subjective Date Seen The patient was seen on 11/01/19. Subjective Chief Complaint/HPI persistent epigastric pain Constitutional: Denies: Chills Eyes: Denies: Pain ENT: Denies: Head Aches Skin: Denies: Rash, Lesions Pulmonary: Denies: Dyspnea, Cough Gastrointestinal: Reports: Abdominal Pain; Denies: Nausea, Vomiting Objective Physical Examination General Exam: Positive: Alert (laying in bed when I entered the room), No Acute Distress Eye Exam: Positive: Conjunctiva & lids normal; Negative: Sclera icteric ENT Exam: Positive: Mucous membr. moist/pink Neck Exam: Positive: Supple; Negative: Lymphadenopathy Chest Exam: Positive: Clear to auscultation, Diminished Heart Exam: Positive: Rate Normal, Regular Rhythm; Negative: Normal S1, Normal S2 Abdomen Exam: Positive: Normal bowel sounds, Tenderness (now predominantly along the lower portion of her abdominal incision) Extremity Exam: Positive: Tenderness (there is only mild erythema and tenderness of the medial stump wound. Left leg is well perfused and warm.); Negative: Edema Skin Exam: Positive: Breakdown (sacral area. 3 open areas stage 2/3, no induration no drainage); Negative: Nl turgor and temperature Neuro Exam: Positive: Normal Speech Psych Exam: Positive: Mental status NL, Mood NL Assessment /Plan Problems (1) Abdominal pain Status: Acute Response to Treatment: Stable, Improving Problem Text: HD oxy IR 5 q4H prn 10/30 decreased oxy 10 to 5 q4H prn given lethargy p 10 dose given persistent pain, need to dw Vasc Surgery re ? thrombin injection rx of psuedoaneurysm 10/30 CT AP: IMPRESSION: 1. Slightly decreased pancreatitis since 10/26/2019. 2. 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 3. Irregular segmental stenosis of the proximal [place] celiac artery with probable bypass graft more proximal. There appears to be an irregular extension of contrast from the hepatic artery suggesting a pseudoaneurysm within the pseudocyst which is slightly increased in size since the prior study. 4. 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 5. Mild left pleural effusion with mild left lower lobe compressive atelectasis which is decreased since the prior study. There is resolution of right pleural effusion. 6. Status post cholecystectomy. (2) Fever Status: Resolved Response to Treatment: Stable Problem Text: D9/ sydnee/D5/10 flucon favor 2 sepsis 2 infected heamatoma +/- yeast UTI 10/27 last temp was 10/27 100 10/30 WBC 9.1 (10/23 16.6), CRP 8.5 (10/19 15) 10/21 BCX2 NG 10/21 abd WCX few yeast 10/21 UCX 4K yeast multiple possible sources: post op abdomen if her graft is infected she will not do well; pleural effusion, will monitor after start of Rx. also recent UTI. blood cultures repeated. change abx to ceftaroline plus metronidazole. 10/25 CT AP: The of the patient's known upper abdominal periaortic hematoma is unchanged in size. There is no evidence of air or gas bubbles within the hematoma or inflammatory changes in the retroperitoneum adjacent to the hematoma to suggest infection. There are bilateral pleural effusions, unchanged. There is no ascites. No adenopathy. The bilateral Bosniak type 1 renal cysts are unchanged. The small left renal cortical infarct is unchanged. The common biliary duct stent is unchanged. Endovascular grafts in the left iliac and femoral arteries are unchanged. Postsurgical changes in the anterior abdominal wall has slightly decreased. (3) Abdominal hematoma Status: Chronic Problem Text: caution on LMWH, asa 10/30 given increased epigastric pain, recheck CT i (4) Protein calorie malnutrition Status: Acute Problem Specific Plan: Monitor Clinically Problem Text: 10/30 Alb is up slightly, monitor. 10/29 She seems to still be doing well with oral nutrition for today. She is drinking the Ensure supplemental shakes although she doesn't like them very much. I'll see if we can work with nursing to make the more palatable for her. (5) UTI (urinary tract infection) Status: Resolved Problem Specific Plan: Monitor Clinically Problem Text: as per fever (6) Anemia Status: Chronic Problem Text: baseline hgb 09/21/19 12.5 10/30 9.7 10/24 7.7 sp 1u PRBC (7) S/P AKA (above knee amputation) unilateral Problem Specific Plan: Monitor Clinically Problem Text: 10/31 consult Sonido Hinojosa for chemist enzymes wrap, Dr. Stein to remove sutures (8) Chronic mesenteric ischemia Status: Chronic Response to Treatment: Stable Problem Specific Plan: Monitor Clinically Problem Text: Appreciate surgery's ongoing assistance in managing this. 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 (9) HTN (hypertension) Status: Chronic Response to Treatment: Stable Problem Specific Plan: Monitor Clinically Problem Text: stable on met tar 25 BID (10) Sacral pressure sore Status: Chronic Response to Treatment: Stable Problem Text: hydrocolloid dressing in place, continue. (11) Physical deconditioning Status: Chronic Response to Treatment: Stable Problem Text: will require SNF per PT when medically stable Plan/VTE VTE Prophylaxis Ordered?: Yes (Lovenox) VS, I&O, 24H, Fishbone Vital Signs/I&O Vital Signs Date Time Temp Pulse Resp B/P (MAP) Pulse Ox O2 Delivery O2 Flow Rate FiO2 11/01/19 15:50 20 Room Air 11/01/19 14:00 97.3 84 138/79 (98) 96 10/29/19 22:00 10/27/19 22:08 93 I&O- Last 24 Hours up to 6 AM 11/01/19 05:59 Intake Total 1280 ml Output Total 1650 ml Balance -370 ml Laboratory Data 24H LABS Laboratory Tests 2 11/01/19 06:01: Immature Granulocyte % (Auto) 0.5, Neutrophils (%) (Auto) 71.8H, Lymphocytes (%) (Auto) 16.2L, Monocytes (%) (Auto) 9.2H, Eosinophils (%) (Auto) 1.9, Basophils (%) (Auto) 0.4, Neutrophils # (Auto) 6.6, Lymphocytes # (Auto) 1.5, Monocytes # (Auto) 0.8, Eosinophils # (Auto) 0.2, Basophils # (Auto) 0.0, Nucleated Red Blood Cells % (auto) 0.0, Anion Gap 4L, Glomerular Filtration Rate > 60.0, Calcium Level 8.3L, Total Bilirubin 0.5, Aspartate Amino Transf (AST/SGOT) 22, Alanine Aminotransferase (ALT/SGPT) 12, Alkaline Phosphatase 122H, C-Reactive Protein, Quantitative 8.48H, Total Protein 7.0, Albumin 1.6L, Albumin/Globulin Ratio 0.30L, Lipase 121 CBC/BMP Laboratory Tests 11/01/19 06:01 Microbiology Microbiology 10/26/19 Gram Stain - Final, Complete 10/26/19 Wound Culture - Final, Complete Yeast Like Organism 10/22/19 Blood Culture - Final, Complete NO GROWTH AFTER 5 DAYS 10/22/19 Blood Culture - Final, Complete NO GROWTH AFTER 5 DAYS 10/22/19 Urine Culture - Final, Complete Yeast Like Organism Hilton Aguiar M.D. Nov 01, 2019 18:48
--- NOTE | 2019-11-01 19:10 | IPNPDOC ---
Subjective Date Seen The patient was seen on 11/01/19. Subjective Chief Complaint/HPI minimal epigastric pain Constitutional: Denies: Chills, Fever Skin: Denies: Rash Pulmonary: Denies: Dyspnea, Cough Cardiovascular: Denies: Chest Pain, Palpitations Gastrointestinal: Denies: Nausea, Vomiting Genitourinary: Denies: Dysuria Objective Physical Examination General Exam: Positive: Alert (laying in bed when I entered the room), No Acute Distress Eye Exam: Positive: Conjunctiva & lids normal; Negative: Sclera icteric ENT Exam: Positive: Mucous membr. moist/pink Neck Exam: Positive: Supple; Negative: Lymphadenopathy Chest Exam: Positive: Clear to auscultation, Diminished Heart Exam: Positive: Rate Normal, Regular Rhythm; Negative: Normal S1, Normal S2 Abdomen Exam: Positive: Normal bowel sounds, Tenderness (now predominantly along the lower portion of her abdominal incision) Extremity Exam: Positive: Tenderness (there is only mild erythema and tenderness of the medial stump wound. Left leg is well perfused and warm.); Negative: Edema Skin Exam: Positive: Breakdown (sacral area. 3 open areas stage 2/3, no induration no drainage); Negative: Nl turgor and temperature Neuro Exam: Positive: Normal Speech Psych Exam: Positive: Mental status NL, Mood NL Assessment /Plan Problems (1) Fever Status: Resolved Response to Treatment: Stable Problem Text: D9/10 sydnee/D5/10 flucon favor sepsis 2 transient bacteremia 2 hematoma +/- yeast UTI 10/27 last temp was 10/27 100 10/31 WBC 9.1 (10/23 16.6), CRP 8.5 (10/19 15) 10/21 BCX2 NG 10/21 abd WCX few yeast 10/21 UCX 4K yeast 10/25 CT AP: The of the patient's known upper abdominal periaortic hematoma is unchanged in size. There is no evidence of air or gas bubbles within the hematoma or inflammatory changes in the retroperitoneum adjacent to the hematoma to suggest infection. There are bilateral pleural effusions, unchanged. There is no ascites. No adenopathy. The bilateral Bosniak type 1 renal cysts are unchanged. The small left renal cortical infarct is unchanged. The common biliary duct stent is unchanged. Endovascular grafts in the left iliac and femoral arteries are unchanged. Postsurgical changes in the anterior abdominal wall has slightly decreased. 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 Slightly decreased pancreatitis since 10/26/2019. 2. 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 3. Irregular segmental stenosis of the proximal [place] celiac artery with probable bypass graft more proximal. There appears to be an irregular extension of contrast from the hepatic artery suggesting a pseudoaneurysm within the pseudocyst which is slightly increased in size since the prior study. 4. 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 5. Mild left pleural effusion with mild left lower lobe compressive atelectasis which is decreased since the prior study. There is resolution of right pleural effusion. 6. Status post cholecystectomy. (3) Abdominal pain Status: Acute Response to Treatment: Stable, Improving Problem Text: HD oxy IR 5 q4H prn 10/30 decreased oxy 10 to 5 q4H prn given lethargy p 10 dose (4) Protein calorie malnutrition Status: Acute Problem Specific Plan: Monitor Clinically Problem Text: 10/30 Alb is up slightly, monitor. 10/29 She seems to still be doing well with oral nutrition for today. She is drinking the Ensure supplemental shakes although she doesn't like them very muc h. I'll see if we can work with nursing to make the more palatable for her. (5) UTI (urinary tract infection) Status: Resolved Problem Specific Plan: Monitor Clinically Problem Text: as per fever (6) Anemia Status: Chronic Problem Text: baseline hgb 09/21/19 12.5 10/30 9.7 10/24 7.7 sp 1u PRBC (7) S/P AKA (above knee amputation) unilateral Problem Specific Plan: Monitor Clinically Problem Text: 10/[address] Stein re suture removal, consulted Sonido Hinojosa for s hrinker wrap (8) Chronic mesenteric ischemia Status: Chronic Response to Treatment: Stable Problem Specific Plan: Monitor Clinically Problem Text: No active s/s IA 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 (9) HTN (hypertension) Status: Chronic Response to Treatment: Stable Problem Specific Plan: Monitor Clinically (10) Sacral pressure sore Status: Chronic Response to Treatment: Stable Problem Text: hydrocolloid dressing in place, continue. (11) Physical deconditioning Problem Text: will require SNF when medically stable Plan/VTE VTE Prophylaxis Ordered?: Yes (Lovenox) VS, I&O, 24H, Fishbone Vital Signs/I&O Vital Signs Date Time Temp Pulse Resp B/P (MAP) Pulse Ox O2 Delivery O2 Flow Rate FiO2 11/01/19 15:50 20 Room Air 11/01/19 14:00 97.3 84 138/79 (98) 96 10/29/19 22:00 10/27/19 22:08 93 I&O- Last 24 Hours up to 6 AM 11/01/19 05:59 Intake Total 1280 ml Output Total 1650 ml Balance -370 ml Laboratory Data 24H LABS Laboratory Tests 2 11/01/19 06:01: Immature Granulocyte % (Auto) 0.5, Neutrophils (%) (Auto) 71.8H, Lymphocytes (%) (Auto) 16.2L, Monocytes (%) (Auto) 9.2H, Eosinophils (%) (Auto) 1.9, Basophils (%) (Auto) 0.4, Neutrophils # (Auto) 6.6, Lymphocytes # (Auto) 1.5, Monocytes # (Auto) 0.8, Eosinophils # (Auto) 0.2, Basophils # (Auto) 0.0, Nucleated Red Blood Cells % (auto) 0.0, Anion Gap 4L, Glomerular Filtration Rate > 60.0, Calcium Level 8.3L, Total Bilirubin 0.5, Aspartate Amino Transf (AST/SGOT) 22, Alanine Aminotransferase (ALT/SGPT) 12, Alkaline Phosphatase 122H, C-Reactive Protein, Quantitative 8.48H, Total Protein 7.0, Albumin 1.6L, Albumin/Globulin Ratio 0.30L, Lipase 121 CBC/BMP Laboratory Tests 11/01/19 06:01 Microbiology Microbiology 10/26/19 Gram Stain - Final, Complete 10/26/19 Wound Culture - Final, Complete Yeast Like Organism 10/22/19 Blood Culture - Final, Complete NO GROWTH AFTER 5 DAYS 10/22/19 Blood Culture - Final, Complete NO GROWTH AFTER 5 DAYS 10/22/19 Urine Culture - Final, Complete Yeast Like Organism Hilton Aguiar M.D. Nov 01, 2019 19:10
--- NOTE | 2019-11-01 20:52 | IPN ---
DATE: 11/01/2019 INFECTIOUS DISEASE PROGRESS NOTE Ms. Mendes is examined at bedside. She is sitting up in her chair. Reports her abdominal pain is much better and progressively improving over the past few days. Tolerated oral intake. Denies any nausea, vomiting. Has been afebrile for the past couple of days and with white count gradually trending down. She did have an episode of abdominal pain yesterday. CT of the abdomen and pelvis revealed improving questionable pancreatitis versus pseudoaneurysm. Denies any chest pain, cough, shortness of breath, wheezing, or sputum production. PHYSICAL EXAMINATION: Temperature 97.3, maximal temperature in the last 24 hours is 98.7, pulse 84, respirations 19, blood pressure (BP) 138/79, mean arterial pressure (MAP) 98, pulse oximetry 96% on room air. She is sitting up comfortably in bed in no acute distress. Alert and oriented times three. Appropriately conversant. NECK: Supple without jugular venous distention (JVD). CARDIAC: Regular rate and rhythm. No murmur, clicks, gallops. LUNGS: Clear throughout without any adventitious sounds. ABDOMEN: Soft, nontender, nondistended with midline vertical scar healed from prior surgery. Lower abdomen is covered in bandage. Per staff, there is a very small, 1 mm, wound of the lower abdomen, oozing, very minimal blood. No rebound, guarding, or rigidity. Normal bowel sounds. EXTREMITIES: Right above-knee amputation (AKA) is present with the stump being soft and nontender. Patient is able to move all limbs. Stitches intact in the right stump without any oozing at the site or any signs of infection. Left lower extremity is intact without deficits. Motor sensation intact, 1-2+ pulses. LABORATORY DATA: WBC 9.1, which is the lowest since hospitalization, gradually trending down. Hemoglobin and hematocrit 9.5 and 29.8, platelets 344. Sodium and potassium 133 and 4.3, BUN and creatinine 7 and 0.36. CRP is 8.48, lowest since admission, also gradually trending down. Abdominal culture from October 25 shows yeastlike organism as well as yeastlike organism in the urine from October 21. Remaining blood cultures and respiratory panel all negative. NEW IMAGING: On 10/31/2019 reads as slightly decreased pancreatitis since 10/26/2019. Low-attenuation collection around the celiac axis and proximal branches, which extend through the diaphragmatic hiatus adjacent to the distal esophagus and around the anterior-posterior aspects of the pancreatic head, which may reflect a pseudocyst and is similar to prior study. 3. Segmental stenosis of proximal [place] celiac artery with bypass graft more proximal. Appears to be an irregular extension of contrast from hepatic artery, suggesting pseudoaneurysm rather than pseudocyst with just slightly increasing size from prior study. 4. 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 5. Mild left pleural effusion with mild left lower lobe compressive atelectasis, which is decreased since prior study. There is evolution of right pleural effusion. 6. Status post cholecystectomy. IMPRESSION: This is a 69-year-old female with recent abdominal surgeries as noted below who had persistently elevated white count, sedimentation rate, C-reactive protein (CRP), and fevers despite initial broad-spectrum antibiotics, on ceftaroline and Flagyl on admission, with suspect source of infection being recent graft versus stent versus less likely infectious hematoma. 2. Aortoiliac and aorto-superior mesenteric artery bypass. 3. 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 4. Severe peripheral vascular disease with compartment syndrome and muscle ischemia s/p fasciotomy and right AKA. 5. History of abdominal wound dehiscence in September 2019, requiring recurrent abdominal intervention. 6. History of septic shock recently at [facility] in September 2019, requiring pressors and prolonged intubation. 7. History of bile duct stent, status post endoscopic retrograde cholangiopancreatography (ERCP) for choledocholithiasis. 8. Hypertension. 9. Dyslipidemia. 10. Chronic tobacco use. PLAN: Renu is significantly improving from admission, currently on day #9 of fluconazole and meropenem. We will continue this for a total of 10 days. Plan to discontinue after tomorrow, last day of antibiotics hopefully being November 01. Monitor clinical improvement. She remains afebrile with decreasing white count, inflammatory markers. On most recent CT of the abdomen and pelvis there is no mention of the retroperitoneal hematoma which was noted on prior CT. It is possible that the pseudocyst and pseudoaneurysm in this report are what were referred to as hematoma in prior reports. We will touch base with radiology for further input and reassessment of this to guide further management. Otherwise, she is hemodynamically stable and significantly improving. REJI
[2019-11-01] MEDS: MAGNESIUM OXIDE 400 MG TAB (MAG-OX) PO SCH (21:59)
[2019-11-01 22:00] VITALS: BP 108/76
[2019-11-02] MEDS: MEROPENEM INJ 1 GM in IV 1 EA IV SCH ×3 (05:14→22:21)
[2019-11-02] MEDS: SODIUM CHLORIDE 0.9% INJ 10 ML SYR IV SCH ×2 (05:38→17:11)
[2019-11-02] MEDS: oxyCODONE 5MG TAB PO PRN ×3 (05:46→22:22)
[2019-11-02 06:00] VITALS: BP 102/70
[2019-11-02 06:07] LABS: BASO # 0.1 10^3/uL (0.0-0.2); BASO % 0.8 % (0.0-1.0); EOS # 0.2 10^3/uL (0.0-0.5); EOS % 2.6 % (0.0-3.0); HEMATOCRIT 29.3 % (36.0-47.0); HEMOGLOBIN 9.4 g/dl (12.0-15.5); LYMPH # 1.6 10^3/uL (1.5-5.0); LYMPH % 17.7 % (24.0-44.0); MEAN CORPUSCULAR HEMOGLOBIN 29.7 pg (27.0-33.0); MEAN CORPUSCULAR HGB CONC 32.1 g/dl (32.0-36.5); MEAN CORPUSCULAR VOLUME 92.7 fl (80.0-96.0); MONO % 10.6 % (0.0-5.0); NEUTROPHILS # 6.1 10^3/uL (1.5-8.5); NEUTROPHILS % 67.7 % (36.0-66.0); PLATELET COUNT, AUTOMATED 333 10^3/uL (150-450); RED BLOOD COUNT 3.16 10^6/uL (4.00-5.40)
[2019-11-02 06:16] LABS: ALBUMIN 1.6 GM/DL (3.2-5.2); ALT/SGPT 12 U/L (12-78); BILIRUBIN,TOTAL 0.3 MG/DL (0.2-1.0); BLOOD UREA NITROGEN 10 MG/DL (7-18); C REACTIVE PROTEIN QUANTITATIV 7.53 MG/DL (0.00-0.30); CALCIUM LEVEL 8.2 MG/DL (8.8-10.2); CARBON DIOXIDE LEVEL 24 MEQ/L (21-32); CHLORIDE LEVEL 105 MEQ/L (98-107); CREATININE FOR GFR 0.48 MG/DL (0.55-1.30); GLOMERULAR FILTRATION RATE > 60.0 (>45); GLUCOSE, FASTING 93 MG/DL (70-100); POTASSIUM SERUM 4.4 MEQ/L (3.5-5.1); SODIUM LEVEL 133 MEQ/L (136-145); TOTAL PROTEIN 7.3 GM/DL (6.4-8.2)
[2019-11-02] MEDS: DOCUSATE SOD LIQ 100MG/10ML UDC PO SCH (09:00)
[2019-11-02] MEDS: METOPROLOL TART 25 MG TABLET PO SCH ×2 (09:00→21:00)
[2019-11-02] MEDS: GABAPENTIN 300 MG CAP PO SCH ×3 (09:31→22:21)
[2019-11-02] MEDS: ATORVASTATIN 20 MG TAB PO SCH (09:31)
[2019-11-02] MEDS: PANTOPRAZOLE 40MG TAB (PROTONIX) PO SCH (09:31)
[2019-11-02] MEDS: FLUCONAZOLE 100 MG TAB PO SCH (09:31)
[2019-11-02] MEDS: ASPIRIN 81 MG CHEW TABLET PO SCH (09:31)
[2019-11-02] MEDS: ENOXAPARIN 40 MG/0.4 ML SYRINGE (J1650) SC SCH (09:32)
--- NOTE | 2019-11-02 12:23 | IPN ---
DATE: 11/02/2019 Renu is almost to the point where she is ready for subacute rehabilitation. Per nursing staff, she was supposed to have sutures removed from her stump from her right above the knee amputation. Nursing staff has attempted to remove some of these but then they are apparently embedded and they could not remove them. Overall, she is complaining of some mild abdominal pain. She has remained surprisingly stable over the last week. PHYSICAL EXAMINATION: Blood pressure 109/64, afebrile. General appearance: Lying in bed resting comfortably. She has a case of upper abdominal pain. Lungs clear. Heart regular rhythm. Abdomen soft. Slightly tender upper abdomen. No change from the last exam. LABS: Sodium 133, potassium 4.4, BUN 10, creatinine 0.4, glucose 93. White count 7, hemoglobin 9.4, platelets 333. PLAN: We anticipate she will be ready for subacute rehabilitation as early as tomorrow. We appreciate the input of infectious disease. Today is her last day of fluconazole and meropenem. This can be discontinued tomorrow. I spoke to the nurse zone manager on the floor and she is going to take care of the embedded sutures. Sonido Hinojosa from [facility] will be seeing the patient for a prosthesis. Anticipate transition to [facility] level [facility] care (SNF) tomorrow after she has had her last day of her IV antibiotics.
[2019-11-02 14:00] VITALS: BP 111/67
[2019-11-02 22:00] VITALS: BP 109/67
[2019-11-02] MEDS: MAGNESIUM OXIDE 400 MG TAB (MAG-OX) PO SCH (22:21)
[2019-11-03] MEDS: MEROPENEM INJ 1 GM in IV 1 EA IV SCH ×2 (05:25→14:36)
[2019-11-03] MEDS: SODIUM CHLORIDE 0.9% INJ 10 ML SYR IV SCH ×2 (05:26→17:04)
[2019-11-03] MEDS: SODIUM CHLORIDE 0.9% INJ 10 ML SYR IV PRN ×2 (05:26→15:18)
[2019-11-03 06:00] VITALS: BP 104/69
[2019-11-03 06:15] LABS: BASO # 0.1 10^3/uL (0.0-0.2); BASO % 0.7 % (0.0-1.0); EOS # 0.3 10^3/uL (0.0-0.5); EOS % 2.8 % (0.0-3.0); HEMATOCRIT 29.1 % (36.0-47.0); HEMOGLOBIN 9.4 g/dl (12.0-15.5); LYMPH # 1.8 10^3/uL (1.5-5.0); LYMPH % 19.7 % (24.0-44.0); MEAN CORPUSCULAR HEMOGLOBIN 29.9 pg (27.0-33.0); MEAN CORPUSCULAR HGB CONC 32.3 g/dl (32.0-36.5); MEAN CORPUSCULAR VOLUME 92.7 fl (80.0-96.0); MONO % 10.9 % (0.0-5.0); NEUTROPHILS # 5.8 10^3/uL (1.5-8.5); NEUTROPHILS % 65.3 % (36.0-66.0); PLATELET COUNT, AUTOMATED 287 10^3/uL (150-450); RED BLOOD COUNT 3.14 10^6/uL (4.00-5.40); WHITE BLOOD COUNT 8.9 10^3/uL (4.0-10.0)
[2019-11-03 06:36] LABS: ALBUMIN 1.7 GM/DL (3.2-5.2); ALT/SGPT 15 U/L (12-78); BILIRUBIN,TOTAL 0.3 MG/DL (0.2-1.0); BLOOD UREA NITROGEN 11 MG/DL (7-18); C REACTIVE PROTEIN QUANTITATIV 6.52 MG/DL (0.00-0.30); CALCIUM LEVEL 8.4 MG/DL (8.8-10.2); CARBON DIOXIDE LEVEL 24 MEQ/L (21-32); CHLORIDE LEVEL 102 MEQ/L (98-107); CREATININE FOR GFR 0.48 MG/DL (0.55-1.30); GLOMERULAR FILTRATION RATE > 60.0 (>45); GLUCOSE, FASTING 100 MG/DL (70-100); POTASSIUM SERUM 4.3 MEQ/L (3.5-5.1); SODIUM LEVEL 132 MEQ/L (136-145); TOTAL PROTEIN 7.3 GM/DL (6.4-8.2)
[2019-11-03] MEDS: DOCUSATE SOD LIQ 100MG/10ML UDC PO SCH (09:00)
[2019-11-03] MEDS: METOPROLOL TART 25 MG TABLET PO SCH ×2 (09:00→20:25)
--- NOTE | 2019-11-03 09:53 | IPN ---
DATE OF SERVICE: 11/03/2019 HISTORY: The patient had undergone complicated vascular surgery in early September. A branched aortic to celiac and aortic to superior mesenteric arterial bypass was performed on or about September 23. She had problems with some postoperative hemorrhage and required re-exploration. She subsequently had some sort of wound dehiscence and required reclosure. She was transferred back to [facility] on the October 19 for convalescence. She has had signs of ongoing inflammation with an elevated CRP since admission. She has a large fluid collection around the area of her graft in the upper abdomen which has been followed with serial imaging studies. She has remained on antibiotics for possible underlying infection. VITAL SIGNS: Show that she has been afebrile over the past 24 hours. Pulse is in the 80s to 90s. Blood pressure is good and her room air oxygen saturations are normal. INTAKE AND OUTPUT: Yesterday, showed 1830 in with 1600 out. PHYSICAL EXAMINATION: The patient appears still quite fatigued, but is alert, oriented and appropriate. She complains of persistent pain in the epigastrium radiating toward her lower abdomen. Heart exam shows a regular rhythm. The lungs are clear. The abdomen shows that her midline incision is for the most part well-healed. She has a small open area about 5-6 mm in size toward the lower end of her incision from which she is draining a small amount of old bloody fluid, possibly with some liquefied fat. This does not appear acutely infected. The abdomen is otherwise soft and she has bowel sounds present. LABORATORY STUDIES: Show a white count of 9, hemoglobin 9, hematocrit 29 and a platelet count of 287. Her differential count shows 65% neutrophils, 20% lymphocytes and 11% monocytes. Chemistry profile shows a sodium of 132, potassium 4.3, chloride 102, CO2 of 24, BUN of 11, creatinine 0.48 and a glucose of 100. Her total protein is up to 7.3 with an albumin of 1.7. C-reactive protein is down to 6.5. Most recent CT scan was on the . This shows a decrease in volume of the fluid collection in the retroperitoneum surrounding her graft. Her right pleural effusion has resolved. IMPRESSION: The patient appears to be making improvement, though slowly. Her CRP has been diminishing and her white count is down to normal with a normal differential now. She is not showing any signs of acute infection. There is a minimal amount of drainage from her incision and this should be monitored, but otherwise allowed to drain with the expectation that this will eventually dry up and heal. Dr. Aguiar asked me about the radiologist report that there is some sort of pseudoaneurysm involving the hepatic artery and I have reviewed her scans and do not believe that this is a matter to be concerned about. I suspect that what he is seeing is just irregularities related to the underlying arterial bypass. In any event, this appears stable from the last CT scan to the current one. RECOMMENDATIONS: At this point, if the patient is otherwise stable for discharge either home with services or to a continuing rehabilitation program, I think it would be reasonable for her to be discharged. I do think that long-term antibiotics may be appropriate for her in light of the possible underlying infection of the retroperitoneum. She should certainly follow up with the vascular surgeon in [place] as they deem appropriate. REJI
[2019-11-03] MEDS: GABAPENTIN 300 MG CAP PO SCH ×3 (09:55→20:25)
[2019-11-03] MEDS: ENOXAPARIN 40 MG/0.4 ML SYRINGE (J1650) SC SCH (09:55)
[2019-11-03] MEDS: ASPIRIN 81 MG CHEW TABLET PO SCH (09:55)
[2019-11-03] MEDS: PANTOPRAZOLE 40MG TAB (PROTONIX) PO SCH (09:55)
[2019-11-03] MEDS: ATORVASTATIN 20 MG TAB PO SCH (09:55)
[2019-11-03] MEDS: oxyCODONE 5MG TAB PO PRN ×3 (09:59→20:25)
[2019-11-03] MEDS: ACETAMINOPHEN TAB 650MG DOSE (2X325MG) PO PRN (11:12)
[2019-11-03 14:00] VITALS: BP 105/72
--- NOTE | 2019-11-03 14:40 | IPNPDOC ---
Subjective Date Seen The patient was seen on 11/03/19. Subjective Chief Complaint/HPI was to be tx back to [facility], but held 2 fever/myalgia Constitutional: Reports: Chills, Fever Eyes: Denies: Pain ENT: Denies: Head Aches Skin: Denies: Rash, Lesions Pulmonary: Denies: Cough Cardiovascular: Denies: Chest Pain, Palpitations Gastrointestinal: Denies: Nausea, Vomiting Genitourinary: Denies: Dysuria Objective Physical Examination General Exam: Positive: Alert (laying in bed when I entered the room), No Acute Distress Eye Exam: Positive: Conjunctiva & lids normal; Negative: Sclera icteric ENT Exam: Positive: Mucous membr. moist/pink Neck Exam: Positive: Supple; Negative: Lymphadenopathy Chest Exam: Positive: Clear to auscultation, Diminished Heart Exam: Positive: Rate Normal, Regular Rhythm; Negative: Normal S1, Normal S2 Abdomen Exam: Positive: Normal bowel sounds, Tenderness (now predominantly along the lower portion of her abdominal incision) Extremity Exam: Positive: Tenderness (there is only mild erythema and tenderness of the medial stump wound. Left leg is well perfused and warm.); Negative: Edema Skin Exam: Positive: Breakdown (sacral area. 3 open areas stage 2/3, no induration no drainage); Negative: Nl turgor and temperature Neuro Exam: Positive: Normal Speech Psych Exam: Positive: Mental status NL, Mood NL Assessment /Plan Problems (1) Fever Status: Resolved Response to Treatment: Stable Problem Text: D10/10 sydnee (last dose 11/02 5 AM)/sp flucon 200 6D favor sepsis 2 transient bacteremia 2 hematoma +/- yeast UTI 11/02 WBC 8.9, CRP 7, BUT at 11:08 100.4 c myalgia; therefore, repeat BCX, check RP (last previous temp was 10/27 100) 10/31 WBC 9.1 (10/23 16.6), CRP 8.5 (10/19 15) 10/21 BCX2 NG 10/21 abd WCX few yeast 10/21 UCX 4K yeast 10/25 CT AP: The of the patient's known upper abdominal periaortic hematoma is unchanged in size. There is no evidence of air or gas bubbles within the hematoma or inflammatory changes in the retroperitoneum adjacent to the hematoma to suggest infection. There are bilateral pleural effusions, unchanged. There is no ascites. No adenopathy. The bilateral Bosniak type 1 renal cysts are unchanged. The small left renal cortical infarct is unchanged. The common biliary duct stent is unchanged. Endovascular grafts in the left iliac and femoral arteries are unchanged. Postsurgical changes in the anterior abdominal wall has slightly decreased. (2) Abdominal hematoma Status: Chronic Problem Text: caution on LMWH, asa 11/02 10/30 CT AP reviewed shaye Stein who felt this was not a pseudoaneurysm c overall improvement of hematoma 10/30 CT AP: 1. Slightly decreased pancreatitis since 10/26/2019. 2. 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 3. 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 There appears to be an irregular extension of contrast from the hepatic artery suggesting a pseudoaneurysm within the pseudocyst which is slightly increased in size since the prior study. 4. 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 5. Mild left pleural effusion with mild left lower lobe compressive atelectasis which is decreased since the prior study. There is resolution of right pleural effusion. 6. Status post cholecystectomy. (3) Abdominal pain Status: Acute Response to Treatment: Stable, Improving Problem Text: HD oxy IR 5 q4H prn 10/30 decreased oxy 10 to 5 q4H prn given lethargy p 10 dose (4) Protein calorie malnutrition Status: Acute Problem Specific Plan: Monitor Clinically Problem Text: 10/30 Alb is up slightly, monitor. 10/29 She seems to still be doing well with oral nutrition for today. She is drinking the Ensure supplemental shakes although she doesn't like them very much. I'll see if we can work with nursing to make the more palatable for her. (5) UTI (urinary tract infection) Status: Resolved Problem Specific Plan: Monitor Clinically Problem Text: as per fever (6) Anemia Status: Chronic Problem Text: baseline hgb 09/21/19 12.5 10/30 9.7 10/24 7.7 sp 1u PRBC (7) S/P AKA (above knee amputation) unilateral Problem Specific Plan: Monitor Clinically Problem Text: 10/[address] Stein re suture removal, consulted Sonido Hinojosa for hide curer wrap (8) Chronic mesenteric ischemia Status: Chronic Response to Treatment: Stable Problem Specific Plan: Monitor Clinically Problem Text: No active s/s WI 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 (9) HTN (hypertension) Status: Chronic Response to Treatment: Stable Problem Specific Plan: Monitor Clinically (10) Sacral pressure sore Status: Chronic Response to Treatment: Stable Problem Text: hydrocolloid dressing in place, continue. (11) Physical deconditioning Problem Text: 11/01 stable per PT to return to [facility] Plan/VTE VTE Prophylaxis Ordered?: Yes (Lovenox) VS, I&O, 24H, Fishbone Vital Signs/I&O Vital Signs Date Time Temp Pulse Resp B/P (MAP) Pulse Ox O2 Delivery O2 Flow Rate FiO2 11/03/19 11:08 100.4 11/03/19 10:29 18 Room Air 11/03/19 09:00 74 108/63 11/03/19 06:00 95 10/29/19 22:00 I&O- Last 24 Hours up to 6 AM 11/03/19 06:00 Intake Total 1330 ml Output Total 1225 ml Balance 105 ml Laboratory Data 24H LABS Laboratory Tests 2 11/03/19 05:22: Immature Granulocyte % (Auto) 0.6, Neutrophils (%) (Auto) 65.3, Lymphocytes (%) (Auto) 19.7L, Monocytes (%) (Auto) 10.9H, Eosinophils (%) (Auto) 2.8, Basophils (%) (Auto) 0.7, Neutrophils # (Auto) 5.8, Lymphocytes # (Auto) 1.8, Monocytes # (Auto) 1.0H, Eosinophils # (Auto) 0.3, Basophils # (Auto) 0.1, Nucleated Red Blood Cells % (auto) 0.0, Anion Gap 6L, Glomerular Filtration Rate > 60.0, Calcium Level 8.4L, Total Bilirubin 0.3, Aspartate Amino Transf (AST/SGOT) 34, Alanine Aminotransferase (ALT/SGPT) 15, Alkaline Phosphatase 148H, C-Reactive Protein, Quantitative 6.52H, Total Protein 7.3, Albumin 1.7L, Albumin/Globulin Ratio 0.30L CBC/BMP Laboratory Tests 11/03/19 05:22 Microbiology Microbiology 11/03/19 Respiratory Virus Panel (PCR) (JOCELYN), Received Pending 10/26/19 Gram Stain - Final, Complete 10/26/19 Wound Culture - Final, Complete Yeast Like Organism Hilton Aguiar M.D. Nov 03, 2019 14:40
[2019-11-03] MEDS ORDERED: ACETAMINOPHEN TAB 650MG DOSE (2X325MG) PO ONE (15:00)
[2019-11-03] MEDS: CYCLOBENZAPRINE 10 MG TAB PO PRN (18:13)
[2019-11-03] MEDS: MAGNESIUM OXIDE 400 MG TAB (MAG-OX) PO SCH (20:25)
[2019-11-03 22:00] VITALS: BP 105/66
[2019-11-04] MEDS: SODIUM CHLORIDE 0.9% INJ 10 ML SYR IV SCH ×2 (05:36→17:00)
[2019-11-04] MEDS: SODIUM CHLORIDE 0.9% INJ 10 ML SYR IV PRN (05:36)
[2019-11-04] MEDS: oxyCODONE 5MG TAB PO PRN ×3 (05:37→19:59)
[2019-11-04 05:54] LABS: BASO # 0.1 10^3/uL (0.0-0.2); BASO % 0.7 % (0.0-1.0); EOS # 0.3 10^3/uL (0.0-0.5); EOS % 3.6 % (0.0-3.0); HEMATOCRIT 29.3 % (36.0-47.0); HEMOGLOBIN 9.3 g/dl (12.0-15.5); LYMPH # 1.4 10^3/uL (1.5-5.0); MEAN CORPUSCULAR HEMOGLOBIN 29.6 pg (27.0-33.0); MEAN CORPUSCULAR HGB CONC 31.7 g/dl (32.0-36.5); MEAN CORPUSCULAR VOLUME 93.3 fl (80.0-96.0); MONO # 0.9 10^3/uL (0.0-0.8); MONO % 11.5 % (0.0-5.0); NEUTROPHILS % 65.7 % (36.0-66.0); PLATELET COUNT, AUTOMATED 239 10^3/uL (150-450); RED BLOOD COUNT 3.14 10^6/uL (4.00-5.40); WHITE BLOOD COUNT 7.6 10^3/uL (4.0-10.0)
[2019-11-04 06:00] VITALS: BP 105/66
[2019-11-04 06:21] LABS: ALBUMIN 1.6 GM/DL (3.2-5.2); ALT/SGPT 19 U/L (12-78); BILIRUBIN,TOTAL 0.4 MG/DL (0.2-1.0); BLOOD UREA NITROGEN 9 MG/DL (7-18); C REACTIVE PROTEIN QUANTITATIV 7.95 MG/DL (0.00-0.30); CALCIUM LEVEL 8.5 MG/DL (8.8-10.2); CARBON DIOXIDE LEVEL 23 MEQ/L (21-32); CHLORIDE LEVEL 104 MEQ/L (98-107); CREATININE FOR GFR 0.49 MG/DL (0.55-1.30); GLOMERULAR FILTRATION RATE > 60.0 (>45); GLUCOSE, FASTING 116 MG/DL (70-100); SODIUM LEVEL 131 MEQ/L (136-145); TOTAL PROTEIN 7.1 GM/DL (6.4-8.2)
[2019-11-04] MEDS: PANTOPRAZOLE 40MG TAB (PROTONIX) PO SCH ×2 (08:02→08:22)
[2019-11-04] MEDS: DOCUSATE SOD LIQ 100MG/10ML UDC PO SCH (08:02)
[2019-11-04] MEDS: ENOXAPARIN 40 MG/0.4 ML SYRINGE (J1650) SC SCH (08:21)
[2019-11-04] MEDS: GABAPENTIN 300 MG CAP PO SCH ×3 (08:22→19:59)
[2019-11-04] MEDS: ATORVASTATIN 20 MG TAB PO SCH (08:22)
[2019-11-04] MEDS: ASPIRIN 81 MG CHEW TABLET PO SCH (08:22)
[2019-11-04] MEDS: METOPROLOL TART 25 MG TABLET PO SCH ×2 (08:24→20:00)
[2019-11-04] MEDS: CYCLOBENZAPRINE 10 MG TAB PO PRN ×2 (08:29→16:59)
[2019-11-04] MEDS: MORPHINE 4 MG/ML 1ML VIAL/SYRINGE (J2270) IV PRN ×2 (08:30→22:47)
--- NOTE | 2019-11-04 13:14 | IPNPDOC ---
Subjective Date Seen The patient was seen on 11/04/19. Subjective Chief Complaint/HPI no further fever/myalgia Constitutional: Denies: Chills, Fever Skin: Denies: Rash Pulmonary: Denies: Dyspnea, Cough Cardiovascular: Denies: Chest Pain, Palpitations Gastrointestinal: Denies: Nausea, Vomiting Objective Physical Examination General Exam: Positive: Alert (laying in bed when I entered the room), No Acute Distress Eye Exam: Positive: Conjunctiva & lids normal; Negative: Sclera icteric ENT Exam: Positive: Mucous membr. moist/pink Neck Exam: Positive: Supple; Negative: Lymphadenopathy Chest Exam: Positive: Clear to auscultation, Diminished Heart Exam: Positive: Rate Normal, Regular Rhythm; Negative: Normal S1, Normal S2 Abdomen Exam: Positive: Normal bowel sounds, Tenderness (now predominantly along the lower portion of her abdominal incision) Extremity Exam: Positive: Tenderness (there is only mild erythema and tenderness of the medial stump wound. Left leg is well perfused and warm.); Negative: Edema Skin Exam: Positive: Breakdown (sacral area. 3 open areas stage 2/3, no indurat ion no drainage); Negative: Nl turgor and temperature Neuro Exam: Positive: Normal Speech Psych Exam: Positive: Mental status NL, Mood NL Assessment /Plan Problems (1) Fever Status: Resolved Response to Treatment: Stable Problem Text: sp 10D sydnee-last dose 11/02 5 AM)/sp flucon 200 6D- favor sepsis 2 transient bacteremia 2 hematoma +/- yeast UTI 11/03 7.6, CRP 8, given persistence c hypotension SBP 90s, subjective dyspnea and persistent LUQ pain, NS 250 bolus, check CXR, repeat RP c COVID, check STAT CT CAP 11/02 WBC 8.9, CRP 7, BUT at 11:08 100.4 c myalgia; therefore, repeat BCX, -RP (last previous temp was 10/27 100) 10/31 WBC 9.1 (10/23 16.6), CRP 8.5 (10/19 15) 11/02 BCX2 NG 10/21 BCX2 NG 10/21 abd WCX few yeast 10/21 UCX 4K yeast 10/25 CT AP: The of the patient's known upper abdominal periaortic hematoma is unchanged in size. There is no evidence of air or gas bubbles within the hematoma or inflammatory changes in the retroperitoneum adjacent to the hematoma to suggest infection. There are bilateral pleural effusions, unchanged. There is no ascites. No adenopathy. The bilateral Bosniak type 1 renal cysts are unchanged. The small left renal cortical infarct is unchanged. The common biliary duct stent is unchanged. Endovascular grafts in the left iliac and femoral arteries are unchanged. Postsurgical changes in the anterior abdominal wall has slightly decreased. (2) Abdominal hematoma Status: Chronic Problem Text: caution on LMWH, asa 11/02 10/30 CT AP reviewed shaye Stein who felt this was not a pseudoaneurysm c overall improvement of hematoma 10/30 CT AP: 1. Slightly decreased pancreatitis since 10/26/2019. 2. 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 3. 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 There appears to be an irregular extension of contrast from the hepatic artery suggesting a pseudoaneurysm within the pseudocyst which is slightly increased in size since the prior study. 4. 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 5. Mild left pleural effusion with mild left lower lobe compressive atelectasis which is decreased since the prior study. There is resolution of right pleural effusion. 6. Status post cholecystectomy. (3) Abdominal pain Status: Acute Response to Treatment: Stable, Improving Problem Text: HD oxy IR 5 q4H prn 10/30 decreased oxy 10 to 5 q4H prn given lethargy p 10 dose (4) Protein calorie malnutrition Status: Acute Problem Specific Plan: Monitor Clinically Problem Text: 10/30 Alb is up slightly, monitor. 10/29 She seems to still be doing well with oral nutrition for today. She is drinking the Ensure supplemental shakes although she doesn't like them very much. I'll see if we can work with nursing to make the more palatable for her. (5) UTI (urinary tract infection) Status: Resolved Problem Specific Plan: Monitor Clinically Problem Text: as per fever (6) Anemia Status: Chronic Problem Text: baseline hgb 09/21/19 12.5 10/30 9.7 3/10 7.7 sp 1u PRBC (7) S/P AKA (above knee amputation) unilateral Problem Specific Plan: Monitor Clinically Problem Text: 10/[address] 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 (11) Physical deconditioning Problem Text: 11/01 stable per PT to return to [facility] Plan/VTE VTE Prophylaxis Ordered?: Yes (Lovenox) VS, I&O, 24H, Fishbone Vital Signs/I&O Vital Signs Date Time Temp Pulse Resp B/P (MAP) Pulse Ox O2 Delivery O2 Flow Rate FiO2 11/04/19 10:17 99.3 11/04/19 08:40 18 11/04/19 08:24 92 132/75 11/04/19 06:00 92 Room Air 10/29/19 22:00 I&O- Last 24 Hours up to 6 AM 11/04/19 06:00 Intake Total 930 ml Output Total 1950 ml Balance -1020 ml Laboratory Data 24H LABS Laboratory Tests 2 11/04/19 05:13: Immature Granulocyte % (Auto) 0.5, Neutrophils (%) (Auto) 65.7, Lymphocytes (%) (Auto) 18.0L, Monocytes (%) (Auto) 11.5H, Eosinophils (%) (Auto) 3.6H, Basophils (%) (Auto) 0.7, Neutrophils # (Auto) 5.0, Lymphocytes # (Auto) 1.4L, Monocytes # (Auto) 0.9H, Eosinophils # (Auto) 0.3, Basophils # (Auto) 0.1, Nucleated Red Blood Cells % (auto) 0.0, Anion Gap 4L, Glomerular Filtration Rate > 60.0, Calcium Level 8.5L, Total Bilirubin 0.4, Aspartate Amino Transf (AST/SGOT) 40H, Alanine Aminotransferase (ALT/SGPT) 19, Alkaline Phosphatase 134H, C-Reactive Protein, Quantitative 7.95H, Total Protein 7.1, Albumin 1.6L, Albumin/Globulin Ratio 0.29L CBC/BMP Laboratory Tests 11/04/19 05:13 Microbiology Microbiology 11/03/19 Blood Culture, Received Pending 11/03/19 Blood Culture, Received Pending 11/03/19 Respiratory Virus Panel (PCR) (JOCELYN) - Final, Complete 10/26/19 Gram Stain - Final, Complete 10/26/19 Wound Culture - Final, Complete Yeast Like Organism Hilton Aguiar M.D. Nov 04, 2019 13:14
[2019-11-04 14:00] VITALS: BP 89/56
--- NOTE | 2019-11-04 14:48 | REP ---
CHEST X-RAY: Two views. HISTORY: Fever. COMPARISON STUDY: October 22, 2019. September 21, 2019 chest x-ray is also reviewed along with CT study of the abdomen from October 30, 2021. FINDINGS: A right-sided PICC line is seen in place. There is hazy opacity in the left base on the frontal view and at the posterior pleural angle on the lateral film suggesting pleural effusion. This is a new finding from September 21, 2019 prior lateral radiograph. There is plate-like atelectasis in the right base. No definite infiltrate. IMPRESSION: Subpulmonic and posterior pleural fluid collection on the left. New finding from September 21, [address] study October 31, 2019. Plate-like atelectasis right base. Electronically Signed by Everardo Tripp MD 11/04/2019 02:52 P
[2019-11-04] MEDS: ACETAMINOPHEN TAB 650MG DOSE (2X325MG) PO PRN (15:11)
--- NOTE | 2019-11-04 16:32 | IPN ---
DATE: 11/04/2019 Renu today is complaining of some left-sided flank pain. She also had low grade fever of 100.8 and her blood pressure is 89/56, O2 sat 95% on room air, pulse 88, respirations 18. She denies any nausea, vomiting. She had some diarrhea. MEDICATIONS: Meropenem was discontinued on 11/02. Her last dose was at 02:00 p.m. Fluconazole also she had finished 10-day course of both. PHYSICAL EXAMINATION: Temperature is 100.8, pulse 88, respirations 18, blood pressure 89/56, O2 sat 95% on room air. Heart: Normal S1, S2. No murmurs. Lungs: Diminished breath sounds at the bases, left flank tenderness especially along the rib cage. There are no open sores. No lesions. Abdomen: Incision line is well healed except for the inferior portion of the wound has an open area with bloody discharge measuring 1 cm x 1/2 cm. No evidence of infection there. Extremities: Left, no clubbing, cyanosis or edema. No calf tenderness or rashes. Right above-knee amputation. LABORATORY DATA White count is 7.6, hemoglobin 9.3, hematocrit 29.3, platelets 239, 65% neutrophils, 18% lymphocytes, 11% monocytes. Sodium 131, potassium 4, chloride 104, bicarb 23, BUN 9, creatinine 0.49, glucose 116, calcium 8.5, AST 40, ALT 19, alk phos 134, CRP 7.95. IMAGING STUDIES CT abdomen and pelvis was done 4 days ago and was compared to CT done on 10/25, was reviewed with Dr. Stein. I will review this reading with Dr. Tripp as the reading discussed pseudo aneurysm and pseudocyst in the setting of pancreatitis and the patient really has a hematoma. IMPRESSION Intra-abdominal hematoma with questionable superimposed infection; has finished 10 days of meropenem and fluconazole. Last day was 11/03/2019. History of aortoiliac and aortic superior mesenteric artery bypass complicated by bleeding and hematoma. Severe peripheral vascular disease with a right external iliac and common femoral occlusion status post angioplasty and thrombectomy and above-knee amputation. New hypotension and fever with left-sided flank pain. Blood cultures have been obtained. Please obtain a lactic acid. Consider repeating CT abdomen and pelvis which was last done 4 days ago. Case discussed with Dr. Aguiar and Dr. Stein.
[2019-11-04 16:57] VITALS: BP 120/68
[2019-11-04 17:22] LABS: BASO # 0.1 10^3/uL (0.0-0.2); BASO % 0.7 % (0.0-1.0); EOS # 0.2 10^3/uL (0.0-0.5); EOS % 2.7 % (0.0-3.0); HEMOGLOBIN 9.1 g/dl (12.0-15.5); LYMPH # 1.7 10^3/uL (1.5-5.0); LYMPH % 19.3 % (24.0-44.0); MEAN CORPUSCULAR HEMOGLOBIN 29.8 pg (27.0-33.0); MEAN CORPUSCULAR HGB CONC 31.4 g/dl (32.0-36.5); MEAN CORPUSCULAR VOLUME 95.1 fl (80.0-96.0); MONO # 0.9 10^3/uL (0.0-0.8); MONO % 10.5 % (0.0-5.0); NEUTROPHILS # 5.7 10^3/uL (1.5-8.5); NEUTROPHILS % 66.1 % (36.0-66.0); PLATELET COUNT, AUTOMATED 244 10^3/uL (150-450); RED BLOOD COUNT 3.05 10^6/uL (4.00-5.40); WHITE BLOOD COUNT 8.6 10^3/uL (4.0-10.0)
[2019-11-04] MEDS: GASTROGRAFIN SOLUTION 30ML PO SCH ×2 (18:28→18:53)
[2019-11-04] MEDS: MAGNESIUM OXIDE 400 MG TAB (MAG-OX) PO SCH (19:59)
--- NOTE | 2019-11-04 21:25 | REPVR ---
PROCEDURE INFORMATION: Exam: CT Abdomen And Pelvis With Contrast Exam date and time: 11/04/2019 8:43 PM Age: 69 years old Clinical indication: Fever; Abdominal pain; Localized; Left upper quadrant (luq); Additional info: Fever, luq pain TECHNIQUE: Imaging protocol: Computed tomography of the abdomen and pelvis with intravenous contrast. Radiation optimization: All CT scans at this facility use at least one of these dose optimization techniques: automated exposure control; mA and/or kV adjustment per patient size (includes targeted exams where dose is matched to clinical indication); or iterative reconstruction. Contrast material: ISOVUE 370; Contrast volume: 100 ml; Contrast route: IV; Other contrast: Oral, gastrografin; COMPARISON: CT ABD PELVIS WITH CONTRAST 10/31/2019 9:24 PM FINDINGS: Lungs: Mild left lower lobe compressive atelectasis and minimal bibasilar fibro-atelectatic change and interstitial coarsening. Pleural space: Mild left pleural effusion. Mediastinum: Contained low-attenuation collection with a Hounsfield measurement of 32 which is centered around the celiac artery branches just above the pancreatic head/uncinate with extension through the diaphragmatic hiatus adjacent to the distal esophagus measuring approximately 9.5 x 4.1 x 4.0 cm. This surrounds the celiac artery branches and contains curvilinear densities anteriorly which may reflect suture lines or embolization coils. Liver: Ill-defined decreased attenuation within the posterior left hepatic lobe which is adjacent to the fluid collection and may reflect edema. There is some hepatic pneumobilia. The liver attenuation is 82 Hounsfield units and the spleen is 117 Hounsfield units. Gallbladder and bile ducts: Endoscopic biliary stent in position. Absent gallbladder. Pancreas: Peripancreatic induration about the head and body which is similar consistent with pancreatitis. Spleen: Normal. No splenomegaly. Adrenals: Normal. No mass. Kidneys and ureters: There are bilateral renal cysts measuring up to 3.9 cm on the right consistent with Bosniak 1 cysts and no follow-up. Probable small nonobstructing right renal calculi. Stomach and bowel: Unremarkable. No obstruction. No mucosal thickening. Appendix: A normal appendix is seen. Intraperitoneal space: Unremarkable. No free air. No significant fluid collection. Vasculature: Large proximal celiac which may reflect a graft and origin occlusion of the SMA with reconstitution of SMA branches through the pancreaticoduodenal arcade which is similar to the prior study. There is moderate atherosclerotic calcification of the abdominal aorta with extension into the iliac arteries with left common iliac artery stent and external iliac artery stent. Lymph nodes: Unremarkable. No enlarged lymph nodes. Bladder: Unremarkable as visualized. Reproductive: Status post hysterectomy. Bones/joints: Right hip hemiarthroplasty in position and residua of previous pin in the left femoral neck. Soft tissues: Unremarkable. IMPRESSION: 1. Mild left pleural effusion which appears slightly increased since 10/31/2019 with some compressive atelectasis of the left lower lobe which is similar. There is minimal bibasilar fibro-atelectatic change and interstitial coarsening which is similar. 2. Mild pancreatitis about the head and body which is similar with fluid collection extending cephalad around the celiac vasculature and through the diaphragmatic hiatus along the esophagus which may reflect a pseudocyst and is similar. Infected pseudocyst is not excluded. 3. Low-attenuation in the left hepatic lobe adjacent to the fluid collection which may reflect hepatic edema. 4. Status post cholecystectomy with endoscopic biliary stent and mild pneumobilia. 5. 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 6. Mild fatty infiltration of the liver. 7. Probable small nonobstructing right renal calculi. 8. Status post hysterectomy. Electronically signed by: Black Carey On 11/04/2019 21:24:23 PM
--- NOTE | 2019-11-04 21:29 | REPVR ---
PROCEDURE INFORMATION: Exam: CT Chest With Contrast Exam date and time: 11/04/2019 8:43 PM Age: 69 years old Clinical indication: Fever TECHNIQUE: Imaging protocol: Computed tomography of the chest with intravenous contrast. Radiation optimization: All CT scans at this facility use at least one of these dose optimization techniques: automated exposure control; mA and/or kV adjustment per patient size (includes targeted exams where dose is matched to clinical indication); or iterative reconstruction. Contrast material: ISOVUE 370; Contrast volume: 100 ml; Contrast route: IV; Other contrast: Oral, gastrografin; COMPARISON: CR CHEST, CHEST PORT VG 55" ARTURO 09/21/2019 8:14 AM FINDINGS: Lungs: Mild left lower lobe compressive atelectasis. Coarse interstitial markings, particularly in the bases with minimal bibasilar fibro-atelectatic change. Pleural space: Mild left pleural effusion with question of some loculation. Heart: Unremarkable. No cardiomegaly. No pericardial effusion. Pulmonary arteries: The main pulmonary artery measures 30 mm. No central pulmonary embolism is identified. Aorta: The ascending thoracic aorta measures 28 mm. Great vessels off aortic arch: Stenosis of the proximal left subclavian artery which is estimated it 50% and segmental stenosis in the distal left subclavian artery. Lymph nodes: Unremarkable. No enlarged lymph nodes. Bones/joints: Old fracture of the right 3rd, 6th-9th ribs anterolaterally or laterally. Soft tissues: Unremarkable. Mediastinum: Fluid collection extending along the distal esophagus from the upper abdomen. IMPRESSION: 1. Mild left pleural effusion with question of some loculation with mild left lower lobe compressive atelectasis. 2. Coarse interstitium, particularly in the bases with minimal bibasilar fibro-atelectatic change. 3. Stenosis of the proximal left subclavian artery estimated at 50% with some segmental stenosis of the distal left subclavian artery. 4. No central pulmonary embolism is identified. Electronically signed by: Black Carey On 11/04/2019 21:29:32 PM
[2019-11-04 22:00] VITALS: BP 110/68
[2019-11-05] MEDS: SODIUM CHLORIDE 0.9% INJ 10 ML SYR IV SCH ×2 (05:39→16:22)
[2019-11-05] MEDS: SODIUM CHLORIDE 0.9% INJ 10 ML SYR IV PRN (05:39)
[2019-11-05 06:00] VITALS: BP 100/62
[2019-11-05 06:09] LABS: BASO # 0.1 10^3/uL (0.0-0.2); BASO % 0.6 % (0.0-1.0); EOS # 0.2 10^3/uL (0.0-0.5); EOS % 2.8 % (0.0-3.0); HEMATOCRIT 28.5 % (36.0-47.0); HEMOGLOBIN 9.2 g/dl (12.0-15.5); LYMPH # 1.6 10^3/uL (1.5-5.0); LYMPH % 20.4 % (24.0-44.0); MEAN CORPUSCULAR HEMOGLOBIN 29.8 pg (27.0-33.0); MEAN CORPUSCULAR HGB CONC 32.3 g/dl (32.0-36.5); MEAN CORPUSCULAR VOLUME 92.2 fl (80.0-96.0); MONO # 0.9 10^3/uL (0.0-0.8); MONO % 11.8 % (0.0-5.0); NEUTROPHILS # 4.9 10^3/uL (1.5-8.5); NEUTROPHILS % 63.9 % (36.0-66.0); PLATELET COUNT, AUTOMATED 228 10^3/uL (150-450); RED BLOOD COUNT 3.09 10^6/uL (4.00-5.40); WHITE BLOOD COUNT 7.7 10^3/uL (4.0-10.0)
[2019-11-05] MEDS: MORPHINE 4 MG/ML 1ML VIAL/SYRINGE (J2270) IV PRN (06:20)
[2019-11-05 06:21] LABS: ALBUMIN 1.5 GM/DL (3.2-5.2); ALT/SGPT 20 U/L (12-78); BILIRUBIN,TOTAL 0.3 MG/DL (0.2-1.0); BLOOD UREA NITROGEN 8 MG/DL (7-18); C REACTIVE PROTEIN QUANTITATIV 7.88 MG/DL (0.00-0.30); CALCIUM LEVEL 7.9 MG/DL (8.8-10.2); CARBON DIOXIDE LEVEL 22 MEQ/L (21-32); CHLORIDE LEVEL 104 MEQ/L (98-107); CREATININE FOR GFR 0.45 MG/DL (0.55-1.30); GLOMERULAR FILTRATION RATE > 60.0 (>45); GLUCOSE, FASTING 93 MG/DL (70-100); POTASSIUM SERUM 4.4 MEQ/L (3.5-5.1); SODIUM LEVEL 131 MEQ/L (136-145)
[2019-11-05] MEDS: ENOXAPARIN 40 MG/0.4 ML SYRINGE (J1650) SC SCH (08:56)
[2019-11-05] MEDS: PANTOPRAZOLE 40MG TAB (PROTONIX) PO SCH (08:57)
[2019-11-05] MEDS: ASPIRIN 81 MG CHEW TABLET PO SCH (08:57)
[2019-11-05] MEDS: CYCLOBENZAPRINE 10 MG TAB PO PRN ×2 (08:57→16:23)
[2019-11-05] MEDS: GABAPENTIN 300 MG CAP PO SCH ×3 (08:57→20:08)
[2019-11-05] MEDS: ATORVASTATIN 20 MG TAB PO SCH (08:57)
[2019-11-05] MEDS: oxyCODONE 5MG TAB PO PRN ×3 (08:58→20:09)
[2019-11-05] MEDS: DOCUSATE SOD LIQ 100MG/10ML UDC PO SCH (08:59)
[2019-11-05] MEDS: METOPROLOL TART 25 MG TABLET PO SCH ×2 (08:59→20:09)
[2019-11-05 09:01] VITALS: BP 111/65
[2019-11-05 13:38] VITALS: BP 113/65
[2019-11-05 14:00] VITALS: BP 113/65
--- NOTE | 2019-11-05 14:19 | IPNPDOC ---
Subjective Date Seen The patient was seen on 11/05/19. Subjective Chief Complaint/HPI stable chronic LUQ pain ENT: Denies: Head Aches Skin: Denies: Rash Pulmonary: Denies: Dyspnea, Cough Cardiovascular: Denies: Chest Pain, Palpitations Gastrointestinal: Reports: Abdominal Pain; Denies: Nausea, Vomiting Objective Physical Examination General Exam: Positive: Alert (laying in bed when I entered the room), No Acute Distress Eye Exam: Positive: Conjunctiva & lids normal; Negative: Sclera icteric ENT Exam: Positive: Mucous membr. moist/pink Neck Exam: Positive: Supple; Negative: Lymphadenopathy Chest Exam: Positive: Clear to auscultation, Diminished Heart Exam: Positive: Rate Normal, Regular Rhythm; Negative: Normal S1, Normal S2 Abdomen Exam: Positive: Normal bowel sounds, Tenderness (now predominantly along the lower portion of her abdominal incision) Extremity Exam: Positive: Tenderness (there is only mild erythema and tenderness of the medial stump wound. Left leg is well perfused and warm.); Negative: Edema Skin Exam: Positive: Breakdown (sacral area. 3 open areas stage 2/3, no induration no drainage); Negative: Nl turgor and temperature Neuro Exam: Positive: Normal Speech Psych Exam: Positive: Mental status NL, Mood NL Assessment /Plan Problems (1) Pleuritic chest pain Status: Acute Problem Text: favor 2 pleurisy c pleural effusion 11/04 MP 60 x 1, + Flector patch and IS (2) Fever Status: Resolved Response to Treatment: Stable Problem Text: sp 10D sydnee-last dose 11/02 5 AM)/sp flucon 200 6D- favor sepsis 2 transient bacteremia 2 hematoma +/- yeast UTI 11/04 Tm 11/03 2200 100.7, WBC 7.7, CRP 8-favor 11/03 fever 2 atelectasis; therefore, +IS, dc COVID 11/03 7.6, CRP 8, given persistence c hypotension SBP 90s, subjective dyspnea and persistent LUQ pain, NS 250 bolus, checked STAT CT CAP, repeat RP c COVID, checked STAT CT CAP, LR 1.7 11/02 WBC 8.9, CRP 7, BUT at 11:08 100.4 c myalgia; therefore, repeat BCX, -RP (last previous temp was 10/27 100) 10/31 WBC 9.1 (3/9 16.6), CRP 8.5 (10/19 15) 11/03 -RP 11/02 BCX2 NG 10/21 BCX2 NG 10/21 abd WCX few yeast 10/21 UCX 4K yeast 11/03 CT CAP: 1. Mild left pleural effusion which appears slightly increased since 10/31/2019 with some compressive atelectasis of the left lower lobe which is similar. There is minimal bibasilar fibro-atelectatic change and interstitial coarsening which is similar. 2. Mild pancreatitis about the head and body which is similar with fluid collection extending cephalad around the celiac vasculature and through the diaphragmatic hiatus along the esophagus which may reflect a pseudocyst and is similar. Infected pseudocyst is not excluded. 3. Low-attenuation in the left hepatic lobe adjacent to the fluid collection which may reflect hepatic edema. 4. Status post cholecystectomy with endoscopic biliary stent and mild pneumobilia. 5. 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 6. Mild fatty infiltration of the liver. 7. Probable small nonobstructing right renal calculi. 8. Status post hysterectomy. (3) Abdominal hematoma Status: Chronic Problem Text: caution on LMWH, asa 11/02 10/30 CT AP reviewed shaye Stein who felt this was not a pseudoaneurysm c overall improvement of hematoma 10/30 CT AP: 1. Slightly decreased pancreatitis since 10/26/2019. 2. 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 3. Irregular segmental stenosis of the proximal [place] celiac artery with probable bypass graft more proximal. There appears to be an irregular extension of contrast from the hepatic artery suggesting a pseudoaneurysm within the pseudocyst which is slightly increased in size since the prior study. 4. 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 5. Mild left pleural effusion with mild left lower lobe compressive atelectasis which is decreased since the prior study. There is resolution of right pleural effusion. 6. Status post cholecystectomy. (4) Abdominal pain Status: Acute Response to Treatment: Stable, Improving Problem Text: HD oxy IR 5 q4H prn 10/30 decreased oxy 10 to 5 q4H prn given lethargy p 10 dose (5) Protein calorie malnutrition Status: Acute Problem Specific Plan: Monitor Clinically Problem Text: 10/30 Alb is up slightly, monitor. 10/29 She seems to still be doing well with oral nutrition for today. She is drinking the Ensure supplemental shakes although she doesn't like them very much. I'll see if we can work with nursing to make the more palatable for her. (6) UTI (urinary tract infection) Status: Resolved Problem Specific Plan: Monitor Clinically Problem Text: as per fever (7) Anemia Status: Chronic Problem Text: baseline hgb 09/21/19 12.5 10/30 9.7 10/24 7.7 sp 1u PRBC (8) S/P AKA (above knee amputation) unilateral Problem Specific Plan: Monitor Clinically Problem Text: 10/[address] 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 (12) Physical deconditioning Problem Text: 11/01 stable per PT to return to [facility]-plan for 11/06 Plan/VTE VTE Prophylaxis Ordered?: Yes (Lovenox) VS, I&O, 24H, Fishbone Vital Signs/I&O Vital Signs Date Time Temp Pulse Resp B/P (MAP) Pulse Ox O2 Delivery O2 Flow Rate FiO2 11/05/19 13:38 96.0 78 16 113/65 (81) 96 Room Air I&O- Last 24 Hours up to 6 AM 11/05/19 06:00 Intake Total 340 ml Output Total 450 ml Balance -110 ml Laboratory Data 24H LABS Laboratory Tests 2 11/04/19 16:56: Immature Granulocyte % (Auto) 0.7, Neutrophils (%) (Auto) 66.1H, Lymphocytes (%) (Auto) 19.3L, Monocytes (%) (Auto) 10.5H, Eosinophils (%) (Auto) 2.7, Basophils (%) (Auto) 0.7, Neutrophils # (Auto) 5.7, Lymphocytes # (Auto) 1.7, Monocytes # (Auto) 0.9H, Eosinophils # (Auto) 0.2, Basophils # (Auto) 0.1, Nucleated Red Blood Cells % (auto) 0.0, Lactic Acid Level 1.7 11/05/19 05:24: Immature Granulocyte % (Auto) 0.5, Neutrophils (%) (Auto) 63.9, Lymphocytes (%) (Auto) 20.4L, Monocytes (%) (Auto) 11.8H, Eosinophils (%) (Auto) 2.8, Basophils (%) (Auto) 0.6, Neutrophils # (Auto) 4.9, Lymphocytes # (Auto) 1.6, Monocytes # (Auto) 0.9H, Eosinophils # (Auto) 0.2, Basophils # (Auto) 0.1, Nucleated Red Blood Cells % (auto) 0.0, Anion Gap 5L, Glomerular Filtration Rate > 60.0, Calci um Level 7.9L, Total Bilirubin 0.3, Aspartate Amino Transf (AST/SGOT) 39H, Alanine Aminotransferase (ALT/SGPT) 20, Alkaline Phosphatase 129H, C-Reactive Protein, Quantitative 7.88H, Total Protein 7.0, Albumin 1.5L, Albumin/Globulin Ratio 0.27L CBC/BMP Laboratory Tests 11/04/19 16:56 11/05/19 05:24 Microbiology Microbiology 11/04/19 Respiratory Virus Panel (PCR) (JOCELYN) - Final, Complete 11/04/19 Coronavirus COVID-19 PCR (JOCELYN), Received Pending 11/03/19 Blood Culture - Preliminary, Resulted No growth after 24 hours . All specim... 11/03/19 Blood Culture - Preliminary, Resulted No growth after 24 hours . All specim... 11/03/19 Respiratory Virus Panel (PCR) (JOCELYN) - Final, Complete 10/26/19 Gram Stain - Final, Complete 10/26/19 Wound Culture - Final, Complete Yeast Like Organism Hilton Aguiar M.D. Nov 05, 2019 14:19
[2019-11-05] MEDS ORDERED: methylPREDNISolone INJ 125 MG/2 ML VIAL (J2930) IV ONE (16:00)
[2019-11-05] MEDS: DICLOFENAC EPOLAMINE 1.3 % PATCH TOP SCH (16:23)
[2019-11-05] MEDS: MAGNESIUM OXIDE 400 MG TAB (MAG-OX) PO SCH (20:08)
[2019-11-05 22:00] VITALS: BP 113/66
[2019-11-06] MEDS: SODIUM CHLORIDE 0.9% INJ 10 ML SYR IV SCH ×2 (05:48→16:10)
[2019-11-06] MEDS: DICLOFENAC EPOLAMINE 1.3 % PATCH TOP SCH ×2 (05:49→16:11)
[2019-11-06] MEDS: SODIUM CHLORIDE 0.9% INJ 10 ML SYR IV PRN (05:49)
[2019-11-06 06:00] VITALS: BP 147/85
[2019-11-06 06:20] LABS: LYMPH # 0.7 10^3/uL (1.5-5.0); LYMPH % 15.3 % (24.0-44.0); MEAN CORPUSCULAR HEMOGLOBIN 29.7 pg (27.0-33.0); MEAN CORPUSCULAR HGB CONC 32.3 g/dl (32.0-36.5); MONO # 0.1 10^3/uL (0.0-0.8); MONO % 2.9 % (0.0-5.0); NEUTROPHILS # 3.7 10^3/uL (1.5-8.5); NEUTROPHILS % 80.9 % (36.0-66.0); PLATELET COUNT, AUTOMATED 267 10^3/uL (150-450); RED BLOOD COUNT 3.37 10^6/uL (4.00-5.40); WHITE BLOOD COUNT 4.5 10^3/uL (4.0-10.0)
[2019-11-06] MEDS: MORPHINE 4 MG/ML 1ML VIAL/SYRINGE (J2270) IV PRN ×2 (06:33→16:10)
[2019-11-06 06:45] LABS: ALBUMIN 1.8 GM/DL (3.2-5.2); ALT/SGPT 29 U/L (12-78); BILIRUBIN,TOTAL 0.3 MG/DL (0.2-1.0); BLOOD UREA NITROGEN 9 MG/DL (7-18); C REACTIVE PROTEIN QUANTITATIV 7.91 MG/DL (0.00-0.30); CALCIUM LEVEL 8.3 MG/DL (8.8-10.2); CARBON DIOXIDE LEVEL 24 MEQ/L (21-32); CHLORIDE LEVEL 107 MEQ/L (98-107); CREATININE FOR GFR 0.51 MG/DL (0.55-1.30); GLOMERULAR FILTRATION RATE > 60.0 (>45); GLUCOSE, FASTING 170 MG/DL (70-100); POTASSIUM SERUM 4.6 MEQ/L (3.5-5.1); SODIUM LEVEL 136 MEQ/L (136-145); TOTAL PROTEIN 7.4 GM/DL (6.4-8.2)
[2019-11-06] MEDS: DOCUSATE SOD LIQ 100MG/10ML UDC PO SCH (08:47)
[2019-11-06] MEDS: ENOXAPARIN 40 MG/0.4 ML SYRINGE (J1650) SC SCH (09:19)
[2019-11-06] MEDS: GABAPENTIN 300 MG CAP PO SCH ×3 (09:20→21:00)
[2019-11-06] MEDS: ASPIRIN 81 MG CHEW TABLET PO SCH (09:20)
[2019-11-06] MEDS: CYCLOBENZAPRINE 10 MG TAB PO PRN ×2 (09:20→16:10)
[2019-11-06] MEDS: PANTOPRAZOLE 40MG TAB (PROTONIX) PO SCH (09:20)
[2019-11-06] MEDS: oxyCODONE 5MG TAB PO PRN ×3 (09:21→22:07)
[2019-11-06] MEDS: METOPROLOL TART 25 MG TABLET PO SCH ×2 (09:21→22:05)
[2019-11-06] MEDS: ATORVASTATIN 20 MG TAB PO SCH (09:21)
[2019-11-06] MEDS: ACETAMINOPHEN TAB 650MG DOSE (2X325MG) PO PRN (13:35)
[2019-11-06 13:37] VITALS: BP 132/81
--- NOTE | 2019-11-06 16:54 | IPNPDOC ---
Subjective Date Seen The patient was seen on 11/06/19. Subjective Chief Complaint/HPI Ms. Mendes reports that she is generally feeling well. She still has abdominal pain, but this is chronic. She would like to get on to rehabilitation as soon as she can. General: Reports: Normal Appetite Constitutional: Denies: Chills, Fever Pulmonary: Denies: Dyspnea, Cough Cardiovascular: Denies: Chest Pain, Palpitations Gastrointestinal: Reports: Abdominal Pain (chronic) Psych: Reports: Mood Normal Objective Physical Examination General Exam: Positive: Alert (sitting up in bed eating a meal), No Acute Distress Eye Exam: Positive: Conjunctiva & lids normal; Negative: Sclera icteric ENT Exam: Positive: Mucous membr. moist/pink Neck Exam: Positive: Supple; Negative: Lymphadenopathy Chest Exam: Positive: Clear to auscultation, Diminished Heart Exam: Positive: Rate Normal, Regular Rhythm; Negative: Normal S1, Normal S2 Extremity Exam: Positive: Other (her right lower extremity stump is wrapped and she can raise it well); Negative: Edema Skin Exam: Positive: Breakdown Neuro Exam: Positive: Normal Speech Psych Exam: Positive: Mental status NL, Mood NL Assessment /Plan Problems (1) Physical deconditioning Problem Text: This plan will probably have to be delayed until we get her COVID-19 testing back. 11/01 stable per PT to return to [facility]-plan for 11/06 (2) S/P AKA (above knee amputation) unilateral Problem Specific Plan: Monitor Clinically Problem Text: 10/[address] Stein re suture removal, consulted Sonido Hinojosa for outside plant field engineer wrap (3) Abdominal hematoma Status: Chronic Problem Text: caution on LMWH, asa 11/02 10/30 CT AP reviewed shaye Stein who felt this was not a pseudoaneurysm c overall improvement of hematoma 10/30 CT AP: 1. Slightly decreased pancreatitis since 10/26/2019. 2. 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 3. Irregular segmental stenosis of the proximal [place] celiac artery with probable bypass graft more proximal. There appears to be an irregular extension of contrast from the hepatic artery suggesting a pseudoaneurysm within the pseudocyst which is slightly increased in size since the prior study. 4. 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 5. Mild left pleural effusion with mild left lower lobe compressive atelectasis which is decreased since the prior study. There is resolution of right pleural effusion. 6. Status post cholecystectomy. (4) Pleuritic chest pain Status: Acute Problem Text: favor 2 pleurisy c pleural effusion 11/04 MP 60 x 1, + Flector patch and IS (5) Protein calorie malnutrition Status: Acute Problem Specific Plan: Monitor Clinically Problem Text: 10/30 Alb is up slightly, monitor. 10/29 She seems to still be doing well with oral nutrition for today. She is drinking the Ensure supplemental shakes although she doesn't like them very much. I'll see if we can work with nursing to make the more palatable for her. 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 (11) Fever Status: Resolved Response to Treatment: Stable Problem Text: sp 10D sydnee-last dose 11/02 5 AM)/sp flucon 200 6D- favor sepsis 2 transient bacteremia 2 hematoma +/- yeast UTI 11/04 Tm 11/03 2200 100.7, WBC 7.7, CRP 8-favor 11/03 fever 2 atelectasis; therefore, +IS, dc COVID 11/03 7.6, CRP 8, given persistence c hypotension SBP 90s, subjective dyspnea and persistent LUQ pain, NS 250 bolus, checked STAT CT CAP, repeat RP c COVID, checked STAT CT CAP, LR 1.7 11/02 WBC 8.9, CRP 7, BUT at 11:08 100.4 c myalgia; therefore, repeat BCX, -RP (last previous temp was 10/27 100) 10/31 WBC 9.1 (10/23 16.6), CRP 8.5 (10/19 15) 11/03 -RP 11/02 BCX2 NG 10/21 BCX2 NG 10/21 abd WCX few yeast 10/21 UCX 4K yeast 11/03 CT CAP: 1. Mild left pleural effusion which appears slightly increased since 10/31/2019 with some compressive atelectasis of the left lower lobe which is similar. There is minimal bibasilar fibro-atelectatic change and interstitial coarsening which is similar. 2. Mild pancreatitis about the head and body which is similar with fluid collection extending cephalad around the celiac vasculature and through the diaphragmatic hiatus along the esophagus which may reflect a pseudocyst and is similar. Infected pseudocyst is not excluded. 3. Low-attenuation in the left hepatic lobe adjacent to the fluid collection which may reflect hepatic edema. 4. Status post cholecystectomy with endoscopic biliary stent and mild pneumobilia. 5. 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 6. Mild fatty infiltration of the liver. 7. Probable small nonobstructing right renal calculi. 8. Status post hysterectomy. (12) UTI (urinary tract infection) Status: Resolved Problem Specific Plan: Monitor Clinically Problem Text: as per fever Plan/VTE VTE Prophylaxis Ordered?: Yes (Lovenox) VS, I&O, 24H, Fishbone Vital Signs/I&O Vital Signs Date Time Temp Pulse Resp B/P (MAP) Pulse Ox O2 Delivery O2 Flow Rate FiO2 11/06/19 16:20 16 11/06/19 13:37 96.3 96 132/81 (98) 92 Room Air I&O- Last 24 Hours up to 6 AM 11/06/19 05:59 Output Total 1350 ml Balance -1350 ml Laboratory Data 24H LABS Laboratory Tests 2 11/06/19 06:11: Immature Granulocyte % (Auto) 0.9, Neutrophils (%) (Auto) 80.9H, Lymphocytes (%) (Auto) 15.3L, Monocytes (%) (Auto) 2.9, Eosinophils (%) (Auto) 0.0, Basophils (%) (Auto) 0.0, Neutrophils # (Auto) 3.7, Lymphocytes # (Auto) 0.7L, Monocytes # (Auto) 0.1, Eosinophils # (Auto) 0.0, Basophils # (Auto) 0.0, Nucleated Red Blood Cells % (auto) 0.0, Anion Gap 5L, Glomerular Filtration Rate > 60.0, Calcium Level 8.3L, Total Bilirubin 0.3, Aspartate Amino Transf (AST/SGOT) 43H, Alanine Aminotransferase (ALT/SGPT) 29, Alkaline Phosphatase 149H, C-Reactive Protein, Quantitative 7.91H, Total Protein 7.4, Albumin 1.8L, Albumin/Globulin Ratio 0.32L CBC/BMP Laboratory Tests 11/06/19 06:11 Microbiology Microbiology 11/04/19 Respiratory Virus Panel (PCR) (JOCELYN) - Final, Complete 11/04/19 Coronavirus COVID-19 PCR (JOCELYN), Received Pending 11/03/19 Blood Culture - Preliminary, Resulted No Growth after 72 hours. All specime... 11/03/19 Blood Culture - Preliminary, Resulted No Growth after 72 hours. All specime... 11/03/19 Respiratory Virus Panel (PCR) (JOCELYN) - Final, Complete Jaziel Montoya MD Nov 06, 2019 16:54
[2019-11-06 21:55] VITALS: BP 125/78
[2019-11-06] MEDS: MAGNESIUM OXIDE 400 MG TAB (MAG-OX) PO SCH (22:06)
[2019-11-07] MEDS: oxyCODONE 5MG TAB PO PRN ×4 (02:16→22:07)
[2019-11-07] MEDS: DICLOFENAC EPOLAMINE 1.3 % PATCH TOP SCH ×2 (06:03→17:39)
[2019-11-07] MEDS: SODIUM CHLORIDE 0.9% INJ 10 ML SYR IV PRN (06:04)
[2019-11-07] MEDS: SODIUM CHLORIDE 0.9% INJ 10 ML SYR IV SCH ×2 (06:04→17:39)
[2019-11-07 06:05] VITALS: BP 128/67
[2019-11-07] MEDS: DOCUSATE SOD LIQ 100MG/10ML UDC PO SCH (08:17)
[2019-11-07] MEDS: ATORVASTATIN 20 MG TAB PO SCH (09:26)
[2019-11-07] MEDS: PANTOPRAZOLE 40MG TAB (PROTONIX) PO SCH (09:27)
[2019-11-07] MEDS: GABAPENTIN 300 MG CAP PO SCH ×3 (09:27→22:07)
[2019-11-07] MEDS: ASPIRIN 81 MG CHEW TABLET PO SCH (09:27)
[2019-11-07] MEDS: ENOXAPARIN 40 MG/0.4 ML SYRINGE (J1650) SC SCH (09:27)
[2019-11-07] MEDS: METOPROLOL TART 25 MG TABLET PO SCH ×2 (09:27→22:08)
--- NOTE | 2019-11-07 11:43 | DS.PDOC ---
Discharge Summary General Date of Admission Oct 20, 2019 at 13:59 Date of Discharge SNF transfer - 11/07/19. Full summary will be done when the patient is sent to an outside facility. Primary Care Physician: FREDIS HAILE DO Attending Physician: Jaziel Montoya MD Specialist/Consultants Involve: Cameron Stein Discharge Summary PROCEDURES PERFORMED DURING STAY: [None]. ADMITTING DIAGNOSES: 1. . DISCHARGE DIAGNOSES: 1. . COMPLICATIONS/CHIEF COMPLAINT: Chronic Mesenteric Ischemia. HISTORY OF PRESENT ILLNESS: . HOSPITAL COURSE: . DISCHARGE MEDICATIONS: Please see below. ALLERGIES: Please see below. PHYSICAL EXAMINATION ON DISCHARGE: VITAL SIGNS: Please see below. GENERAL: HEENT: NECK: CARDIOVASCULAR EXAMINATION: RESPIRATORY EXAMINATION: ABDOMINAL EXAMINATION: EXTREMITIES: SKIN: NEUROLOGICAL EXAMINATION: PSYCHIATRIC EXAMINATION: LABORATORY DATA: Please see below. IMAGING: PROGNOSIS: ACTIVITY: [As tolerated]. DIET: DISCHARGE PLAN: DISPOSITION: . DISCHARGE INSTRUCTIONS: 1. . ITEMS TO FOLLOWUP ON ON OUTPATIENT: 1. . DISCHARGE CONDITION: [Stable]. TIME SPENT ON DISCHARGE: Greater than minutes. Vital Signs/I&Os Vital Signs Date Time Temp Pulse Resp B/P (MAP) Pulse Ox O2 Delivery O2 Flow Rate FiO2 11/07/19 09:58 16 11/07/19 06:05 97.2 71 128/67 (87) 97 Room Air I&O- Last 24 Hours up to 6 AM 11/07/19 06:00 Intake Total 800 ml Output Total 400 ml Balance 400 ml Microbiology Microbiology 11/04/19 Respiratory Virus Panel (PCR) (JOCELYN) - Final, Complete 11/04/19 Coronavirus COVID-19 PCR (JOCELYN), Received Pending 11/03/19 Blood Culture - Preliminary, Resulted No Growth after 72 hours. All specime... 11/03/19 Blood Culture - Preliminary, Resulted No Growth after 72 hours. All specime... 11/03/19 Respiratory Virus Panel (PCR) (JOCELYN) - Final, Complete Discharge Medications Scheduled Amoxicillin/Potassium Clav (Augmentin 500-125 Tablet) 1 Each Tablet, 1 TAB PO BID, (Reported) started 10/20/19 for 10 days Aspirin (Aspirin) 81 Mg Tab.chew, 81 MG PO DAILY, (Reported) Atorvastatin Calcium (Atorvastatin Calcium) 20 Mg Tablet, 20 MG PO DAILY, (Reported) Docusate Sodium (Docusate Sodium) 50 Mg/5 Ml Liquid, 100 MG PO DAILY, (Reported) Gabapentin (Gabapentin) 300 Mg Capsule, 300 MG PO TID, (Reported) Magnesium Oxide (Magnesium Oxide) 400 Mg Tablet, 400 MG PO QPM, (Reported) Megestrol Acetate (Megestrol Acetate) 40 Mg Tablet, 160 MG PO DAILY, (Reported) Metoprolol Tartrate (Metoprolol Tartrate) 25 Mg Tablet, 25 MG PO BID, (Reported) Pantoprazole Sodium (Pantoprazole Sodium) 40 Mg Tablet.dr, 40 MG PO DAILY, (Reported) Saccharomyces Boulardii (Florastor) 250 Mg Capsule, 250 MG PO DAILY, (Reported) Scheduled PRN Acetaminophen (Acetaminophen) 325 Mg Tablet, 650 MG PO Q4H PRN for PAIN, (Reported) Calcium Carbonate (Tums) 200 Mg Tab.chew, 1,000 MG PO bid PRN for GAS PAIN, (Reported) Cyclobenzaprine HCl (Cyclobenzaprine HCl) 5 Mg Tablet, 5 MG PO TID PRN for MUSCLE SPASMS, (Reported) Oxycodone HCl (Oxycodone HCl) 5 Mg Tablet, 5 MG PO Q4H PRN for PAIN, (Reported) Allergies Coded Allergies: Penicillins (Verified Allergy, Intermediate, hives, 09/19/19) aspirin (Verified Allergy, Mild, rash, 09/19/19) vancomycin (Verified Allergy, Mild, rash itching, 09/19/19) iron (Verified Adverse Reaction, Mild, flu symptoms, 09/19/19) Jaziel Montoya MD Nov 07, 2019 11:43
[2019-11-07 14:28] VITALS: BP 96/68
[2019-11-07] MEDS: CYCLOBENZAPRINE 10 MG TAB PO PRN (17:38)
[2019-11-07] MEDS: MAGNESIUM OXIDE 400 MG TAB (MAG-OX) PO SCH (22:07)
[2019-11-07 22:08] VITALS: BP 132/71
[2019-11-08 05:58] VITALS: BP 127/71
[2019-11-08] MEDS: SODIUM CHLORIDE 0.9% INJ 10 ML SYR IV SCH ×2 (06:00→12:47)
[2019-11-08] MEDS: SODIUM CHLORIDE 0.9% INJ 10 ML SYR IV PRN (06:00)
[2019-11-08] MEDS: DICLOFENAC EPOLAMINE 1.3 % PATCH TOP SCH ×2 (06:00→17:45)
[2019-11-08] MEDS: oxyCODONE 5MG TAB PO PRN ×3 (06:01→17:45)
[2019-11-08] MEDS: DOCUSATE SOD LIQ 100MG/10ML UDC PO SCH (09:00)
[2019-11-08] MEDS: METOPROLOL TART 25 MG TABLET PO SCH ×2 (10:28→20:25)
[2019-11-08] MEDS: ATORVASTATIN 20 MG TAB PO SCH (10:28)
[2019-11-08] MEDS: ASPIRIN 81 MG CHEW TABLET PO SCH (10:28)
[2019-11-08] MEDS: PANTOPRAZOLE 40MG TAB (PROTONIX) PO SCH (10:28)
[2019-11-08] MEDS: ENOXAPARIN 40 MG/0.4 ML SYRINGE (J1650) SC SCH (10:28)
[2019-11-08] MEDS: GABAPENTIN 300 MG CAP PO SCH ×3 (10:28→20:24)
[2019-11-08] MEDS: CYCLOBENZAPRINE 10 MG TAB PO PRN (10:28)
[2019-11-08] MEDS: ACETAMINOPHEN TAB 650MG DOSE (2X325MG) PO PRN (12:47)
[2019-11-08] MEDS: ONDANSETRON 4MG/2ML VIAL (J2405) IV PRN (12:47)
[2019-11-08 12:58] VITALS: BP 151/88
[2019-11-08 14:40] LABS: BASO # 0.1 10^3/uL (0.0-0.2); BASO % 0.6 % (0.0-1.0); EOS % 0.1 % (0.0-3.0); HEMATOCRIT 30.2 % (36.0-47.0); HEMOGLOBIN 9.8 g/dl (12.0-15.5); LYMPH # 1.6 10^3/uL (1.5-5.0); LYMPH % 11.1 % (24.0-44.0); MEAN CORPUSCULAR HEMOGLOBIN 29.6 pg (27.0-33.0); MEAN CORPUSCULAR HGB CONC 32.5 g/dl (32.0-36.5); MEAN CORPUSCULAR VOLUME 91.2 fl (80.0-96.0); MONO # 1.3 10^3/uL (0.0-0.8); MONO % 9.3 % (0.0-5.0); NEUTROPHILS # 11.2 10^3/uL (1.5-8.5); NEUTROPHILS % 78.2 % (36.0-66.0); PLATELET COUNT, AUTOMATED 306 10^3/uL (150-450); RED BLOOD COUNT 3.31 10^6/uL (4.00-5.40); WHITE BLOOD COUNT 14.3 10^3/uL (4.0-10.0)
[2019-11-08 15:05] LABS: ALBUMIN 2.1 GM/DL (3.2-5.2); ALT/SGPT 30 U/L (12-78); BILIRUBIN,TOTAL 0.5 MG/DL (0.2-1.0); BLOOD UREA NITROGEN 15 MG/DL (7-18); CALCIUM LEVEL 8.3 MG/DL (8.8-10.2); CARBON DIOXIDE LEVEL 24 MEQ/L (21-32); CHLORIDE LEVEL 101 MEQ/L (98-107); CREATININE FOR GFR 0.52 MG/DL (0.55-1.30); GLOMERULAR FILTRATION RATE > 60.0 (>45); GLUCOSE, FASTING 105 MG/DL (70-100); SODIUM LEVEL 132 MEQ/L (136-145)
--- NOTE | 2019-11-08 18:24 | IPN ---
DATE: 11/08/2019 Renu continues not feeling well. She states that she has persistent epigastric pain radiating to the right upper quadrant and the back. She had one episode of nausea and vomiting. She had a temperature of 100.7 that has resolved now. She has been off antibiotics for the past five days. LABORATORY DATA: Today: White count is 14.3, hemoglobin 9.8, hematocrit 30.2, platelets 306, 78% neutrophils, 11% lymphocytes and 9% monocytes. Sodium 132, potassium 4, chloride 101, bicarbonate 24, BUN 15, creatinine 0.52, glucose 105, calcium 8.3. AST 41, ALT 30, alkaline phosphatase 136, C-reactive protein 3.2, albumin 2.1. Procalcitonin pending. Respiratory panel was done on 11/04/2019 and was negative and coronavirus. Polymerase chain reaction (PCR) was pending. The patient is currently on COVID isolation, although had no visitors since she has been in our hospital and she does not have a cough or shortness of breath. PHYSICAL EXAMINATION: Temperature is 100.7, pulse 125, respirations 20, blood pressure 151/88, oxygen saturation 95% on room air. HEART: Normal S1, S2. Tachycardiac. LUNGS: Diminished breath sounds at the left base. No wheezes or rhonchi. ABDOMEN: Tender in the epigastric area. Abdominal wound has completely healed. There is no opening. No drainage. BACK: No costovertebral angle (CVA) tenderness. She has right upper quadrant tenderness and epigastric tenderness. EXTREMITIES: No clubbing, cyanosis or edema. Right above-knee amputation with sutures have been removed and amputation site is completely healed. There is no redness, tenderness. CT abdomen and pelvis was reviewed with Dr. Tripp today from 11/04/2019. He describes the hematoma as having decreased in size. There is no nothing to suggest an infection. There is a left-sided pleural effusion. The hematoma measures 9.5 x 4 x 4 cm and has not changed in consistency. There is a stent from the aorta to the celiac and superior mesenteric artery. IMPRESSION: 1- Intra-abdominal hematoma with questionable superimposed infection treated with Meropenem and fluconazole for the possibility that it was infected, but there is nothing to suggest infection such as air bubbles or loculations. At this point the hematoma has decreased in size per Dr. Tripp and does not look infected. 2. Recurrent fever with elevated white count that needs to be monitored. The patient has persistent epigastric pain to the right upper quadrant and if that persists, may need to transfer to [place] if there is no improvement. COVID-19 was sent on 11/04/2019, but the patient does not have a cough or shortness of breath and chest CT only has a pleural effusion, so that is not the problem. 3. Status post above-knee amputation. Completely healed with no evidence of infection. PLAN: Continue off antibiotics. Monitor if she has recurrent fever. Order blood cultures. The patient has a peripherally inserted central catheter (PICC) line in place and that may be a source of infection in the right arm. Procalcitonin was added. If the patient does not need intravenous (IV) access, her PICC line could be removed. REJI
--- NOTE | 2019-11-08 19:14 | IPNPDOC ---
Subjective Date Seen The patient was seen on 11/08/19. Subjective Chief Complaint/HPI Ms. Mendes was made SNF status yesterday but she didn't stay non-acute for very long. Today I was called with a fever of 100.7 and ordered labs to see what's going on. I made her acute again in order to further evaluate her condition. Dr. Prado was also asked to see her because of her pending SARS CoV-2 status. The patient reports that she just generally doesn't feel well today, though she doesn't have any specific symptoms. She has some abdominal pain, but this is chronic and basically unchanged. She has already been on a long course of broad spectrum antibiotics to prevent infection of a large periaortic hematoma. Constitutional: Reports: Fever, Malaise, Fatigue Skin: Denies: Rash, Lesions Pulmonary: Denies: Dyspnea, Cough Cardiovascular: Denies: Chest Pain, Palpitations Gastrointestinal: Reports: Abdominal Pain (chronic and unchanged) Genitourinary: Denies: Dysuria Objective Physical Examination General Exam: Positive: Alert (resting in her bed when I entered the room, more listless than the other days I have seen her), Cooperative, No Acute Distress Eye Exam: Positive: Conjunctiva & lids normal; Negative: Sclera icteric ENT Exam: Positive: Mucous membr. moist/pink Neck Exam: Positive: Supple; Negative: Lymphadenopathy Chest Exam: Positive: Clear to auscultation, Diminished Heart Exam: Positive: Rate Normal, Regular Rhythm; Negative: Normal S1, Normal S2 Abdomen Exam: Positive: Normal bowel sounds, Soft, Tenderness (moderate diffuse tenderness on palpation. No rebound tenderness noted.) Extremity Exam: Positive: Other (Her R AKA stump shows now signs of infection); Negative: Edema Neuro Exam: Positive: Normal Speech Psych Exam: Positive: Mental status NL, Mood NL Assessment /Plan Problems (1) Fever Status: Acute Response to Treatment: Stable Problem Text: Unfortunately, she spiked a fever again today. The etiology is unclear. Infectious disease is helping to clarify; she is pending the COVID-19 test, but isn't having cough or significant dyspnea. She had one episode like this about a week ago and we felt it was due to atelectasis. She has been less active since she has been quarantined while we wait for her testing. I made sure that her IS was at her bedside and instructed her to use it regularly (at least once an hour) while awake. We will continue to monitor for s/s that may give us an idea of where she is infected. sp 10D sydnee-last dose 11/02 5 AM)/sp flucon 200 6D- favor sepsis 2 transient bacteremia 2 hematoma +/- yeast UTI 11/04 Tm 11/03 2200 100.7, WBC 7.7, CRP 8-favor 11/03 fever 2 atelectasis; therefore, +IS, dc COVID 11/03 7.6, CRP 8, given persistence c hypotension SBP 90s, subjective dyspnea and persistent LUQ pain, NS 250 bolus, checked STAT CT CAP, repeat RP c COVID, checked STAT CT CAP, LR 1.7 11/02 WBC 8.9, CRP 7, BUT at 11:08 100.4 c myalgia; therefore, repeat BCX, -RP (last previous temp was 10/27 100) 10/31 WBC 9.1 (10/23 16.6), CRP 8.5 (10/19 15) 11/03 -RP 11/02 BCX2 NG 10/21 BCX2 NG 10/21 abd WCX few yeast 10/21 UCX 4K yeast 11/03 CT CAP: 1. Mild left pleural effusion which appears slightly increased since 10/31/2019 with some compressive atelectasis of the left lower lobe which is similar. There is minimal bibasilar fibro-atelectatic change and interstitial coarsening which is similar. 2. Mild pancreatitis about the head and body which is similar with fluid collection extending cephalad around the celiac vasculature and through the diaphragmatic hiatus along the esophagus which may reflect a pseudocyst and is similar. Infected pseudocyst is not excluded. 3. Low-attenuation in the left hepatic lobe adjacent to the fluid collection which may reflect hepatic edema. 4. Status post cholecystectomy with endoscopic biliary stent and mild pneumobilia. 5. 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 6. Mild fatty infiltration of the liver. 7. Probable small nonobstructing right renal calculi. 8. Status post hysterectomy. (2) S/P AKA (above knee amputation) unilateral Problem Specific Plan: Monitor Clinically Problem Text: [facility] as soon as she is determined to be negative for COVID-19. 10/[address] Stein re suture removal, consulted Sonido Hinojosa for environmental services director wrap (3) Physical deconditioning Problem Text: This plan will probably have to be delayed until we get her COVID-19 testing back. 11/01 stable per PT to return to [facility]-plan for 11/06 (4) Abdominal hematoma Status: Chronic Problem Text: caution on LMWH, asa 11/02 10/30 CT AP reviewed shaye Stein who felt this was not a pseudoaneurysm c overall improvement of hematoma 10/30 CT AP: 1. Slightly decreased pancreatitis since 10/26/2019. 2. 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 3. Irregular segmental stenosis of the proximal sun'aq celiac artery with probable bypass graft more proximal. There appears to be an irregular extension of contrast from the hepatic artery suggesting a pseudoaneurysm within the pseudocyst which is slightly increased in size since the prior study. 4. 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 5. Mild left pleural effusion with mild left lower lobe compressive atelectasis which is decreased since the prior study. There is resolution of right pleural effusion. 6. Status post cholecystectomy. (5) Abdominal pain Status: Chronic Response to Treatment: Stable, Improving Problem Text: HD oxy IR 5 q4H prn 10/30 decreased oxy 10 to 5 q4H prn given lethargy p 10 dose (6) Pleuritic chest pain Status: Acute Problem Text: favor 2 pleurisy c pleural effusion 11/04 MP 60 x 1, + Flector patch and IS (7) Protein calorie malnutrition Status: Acute Problem Specific Plan: Monitor Clinically Problem Text: 10/30 Alb is up slightly, monitor. 10/29 She seems to still be doing well with oral nutrition for today. She is drinking the Ensure supplemental shakes although she doesn't like them very much. I'll see if we can work with nursing to make the more palatable for her. 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 (12) UTI (urinary tract infection) Status: Resolved Problem Specific Plan: Monitor Clinically Problem Text: as per fever Plan/VTE VTE Prophylaxis Ordered?: Yes (Lovenox) VS, I&O, 24H, Fishbone Vital Signs/I&O Vital Signs Date Time Temp Pulse Resp B/P (MAP) Pulse Ox O2 Delivery O2 Flow Rate FiO2 11/08/19 18:15 18 11/08/19 14:25 99.7 11/08/19 12:58 125 151/88 (109) 95 Room Air I&O- Last 24 Hours up to 6 AM 11/08/19 06:00 Intake Total 500 ml Output Total 200 ml Balance 300 ml Laboratory Data 24H LABS Laboratory Tests 2 11/08/19 00:00: 11/08/19 14:24: Immature Granulocyte % (Auto) 0.7, Neutrophils (%) (Auto) 78.2H, Lymphocytes (%) (Auto) 11.1L, Monocytes (%) (Auto) 9.3H, Eosinophils (%) (Auto) 0.1, Basophils (%) (Auto) 0.6, Neutrophils # (Auto) 11.2H, Lymphocytes # (Auto) 1.6, Monocytes # (Auto) 1.3H, Eosinophils # (Auto) 0.0, Basophils # (Auto) 0.1, Nucleated Red Blood Cells % (auto) 0.0, Anion Gap 7L, Glomerular Filtration Rate > 60.0, Calcium Level 8.3L, Total Bilirubin 0.5#, Aspartate Amino Transf (AST/SGOT) 41H, Alanine Aminotransferase (ALT/SGPT) 30, Alkaline Phosphatase 136H, C-Reactive Protein, Quantitative 3.20H, Total Protein 7.0, Albumin 2.1L, Albumin/Globulin Ratio 0.43L CBC/BMP Laboratory Tests 11/08/19 14:24 Microbiology Microbiology 11/04/19 Respiratory Virus Panel (PCR) (JOCELYN) - Final, Complete 11/04/19 Coronavirus COVID-19 PCR (OJCELYN), Received Pending 11/03/19 Blood Culture - Final, Complete NO GROWTH AFTER 5 DAYS 11/03/19 Blood Culture - Final, Complete NO GROWTH AFTER 5 DAYS 11/03/19 Respiratory Virus Panel (PCR) (JOCELYN) - Final, Complete Jaziel Montoya MD Nov 08, 2019 19:13
[2019-11-08 20:15] VITALS: BP 130/80
[2019-11-08] MEDS: MAGNESIUM OXIDE 400 MG TAB (MAG-OX) PO SCH (20:25)
[2019-11-09] MEDS: DICLOFENAC EPOLAMINE 1.3 % PATCH TOP SCH ×2 (05:08→17:44)
[2019-11-09] MEDS: SODIUM CHLORIDE 0.9% INJ 10 ML SYR IV SCH ×2 (05:09→17:40)
[2019-11-09 05:35] LABS: BASO # 0.1 10^3/uL (0.0-0.2); BASO % 0.4 % (0.0-1.0); EOS % 0.2 % (0.0-3.0); HEMATOCRIT 27.2 % (36.0-47.0); HEMOGLOBIN 8.8 g/dl (12.0-15.5); LYMPH # 1.3 10^3/uL (1.5-5.0); LYMPH % 10.1 % (24.0-44.0); MEAN CORPUSCULAR HEMOGLOBIN 29.7 pg (27.0-33.0); MEAN CORPUSCULAR HGB CONC 32.4 g/dl (32.0-36.5); MEAN CORPUSCULAR VOLUME 91.9 fl (80.0-96.0); MONO # 1.3 10^3/uL (0.0-0.8); MONO % 10.1 % (0.0-5.0); NEUTROPHILS # 10.3 10^3/uL (1.5-8.5); NEUTROPHILS % 78.7 % (36.0-66.0); PLATELET COUNT, AUTOMATED 229 10^3/uL (150-450); RED BLOOD COUNT 2.96 10^6/uL (4.00-5.40)
[2019-11-09 06:04] LABS: ALBUMIN 1.9 GM/DL (3.2-5.2); ALT/SGPT 24 U/L (12-78); BILIRUBIN,TOTAL 0.9 MG/DL (0.2-1.0); BLOOD UREA NITROGEN 16 MG/DL (7-18); CALCIUM LEVEL 8.2 MG/DL (8.8-10.2); CARBON DIOXIDE LEVEL 25 MEQ/L (21-32); CHLORIDE LEVEL 103 MEQ/L (98-107); CREATININE FOR GFR 0.44 MG/DL (0.55-1.30); GLOMERULAR FILTRATION RATE > 60.0 (>45); GLUCOSE, FASTING 104 MG/DL (70-100); POTASSIUM SERUM 4.4 MEQ/L (3.5-5.1); SODIUM LEVEL 134 MEQ/L (136-145); TOTAL PROTEIN 6.4 GM/DL (6.4-8.2)
[2019-11-09 06:06] VITALS: BP 125/83
[2019-11-09] MEDS: DOCUSATE SOD LIQ 100MG/10ML UDC PO SCH ×2 (09:00→09:50)
[2019-11-09] MEDS: GABAPENTIN 300 MG CAP PO SCH ×3 (09:50→20:56)
[2019-11-09] MEDS: ASPIRIN 81 MG CHEW TABLET PO SCH (09:50)
[2019-11-09] MEDS: ATORVASTATIN 20 MG TAB PO SCH (09:50)
[2019-11-09] MEDS: PANTOPRAZOLE 40MG TAB (PROTONIX) PO SCH (09:50)
[2019-11-09] MEDS: ENOXAPARIN 40 MG/0.4 ML SYRINGE (J1650) SC SCH (09:51)
[2019-11-09] MEDS: METOPROLOL TART 25 MG TABLET PO SCH ×2 (09:51→18:30)
[2019-11-09] MEDS: oxyCODONE 5MG TAB PO PRN ×2 (09:52→21:02)
[2019-11-09 14:30] VITALS: BP 183/93
[2019-11-09] MEDS: ACETAMINOPHEN TAB 650MG DOSE (2X325MG) PO PRN (14:36)
[2019-11-09] MEDS: CYCLOBENZAPRINE 10 MG TAB PO PRN (14:36)
[2019-11-09] MEDS: MORPHINE 4 MG/ML 1ML VIAL/SYRINGE (J2270) IV PRN ×2 (16:00→23:01)
--- NOTE | 2019-11-09 17:05 | IPNPDOC ---
Subjective Date Seen The patient was seen on 11/09/19. Subjective Chief Complaint/HPI Renu is afebrile this morning. She does not c/o cough, sob nor GI symptoms typical of COVID-19 infection. She is c/o RUQ abd pain which has been present since transfer to our hospital. Objective Physical Examination General Exam: Positive: Alert (awake and responsive, able to answer questions appropriately), Cooperative, No Acute Distress Eye Exam: Positive: Conjunctiva & lids normal; Negative: Sclera icteric ENT Exam: Positive: Mucous membr. moist/pink Neck Exam: Positive: Supple; Negative: Lymphadenopathy Chest Exam: Positive: Clear to auscultation, Diminished Heart Exam: Positive: Rate Normal, Regular Rhythm; Negative: Normal S1, Normal S2 Abdomen Exam: Positive: Normal bowel sounds, Soft, Tenderness (RUQ tenderness on palpation. No rebound tenderness noted.) Extremity Exam: Positive: Other (Stump is c/d/i); Negative: Edema Neuro Exam: Positive: Normal Speech Psych Exam: Positive: Mental status NL, Mood NL Assessment /Plan Assessment # Fever of unknown origin # < 10 K Yeast in urine cx (10/21 + 10/25) unclear if this is of clinical signifi cance - COVID 19 results pending - afebrile this am, WBC lower this morning - CT abd/pelvis reviewed - she does have some pancreatic inflammation which could explain fever, doubt atelectasis as a cause - agree with holding abx for now - repeat labs in am - ID following, notes reviewed # S/p right AKA # Chronic intestinal ischemia: 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 # Abdominal hematoma # Generalized deconditioning - awaiting SNF placement once afebrile and covid-19 testing comes back negative - repeat CT abd/pelvis shows improved hematoma # Severe Protein Calorie Malnutrition due to acute illness - ensure supplements with meals - has been seen by dietary # Anemia due to acute illness - s/p 1 unit PRBCs this hospital stay - hgb counts stable # Sacral pressure sore, POA - local wound care Dispo: SNF when afebrile and Covid-19 testing negative Plan/VTE VTE Prophylaxis Ordered?: Yes (Lovenox) VS, I&O, 24H, Fishbone Vital Signs/I&O Vital Signs Date Time Temp Pulse Resp B/P (MAP) Pulse Ox O2 Delivery O2 Flow Rate FiO2 11/09/19 16:00 18 11/09/19 14:30 98.3 112 183/93 (123) 94 Room Air I&O- Last 24 Hours up to 6 AM 11/09/19 06:00 Intake Total 300 ml Output Total 1000 ml Balance -700 ml Laboratory Data 24H LABS Laboratory Tests 2 11/09/19 05:07: Immature Granulocyte % (Auto) 0.5, Neutrophils (%) (Auto) 78.7H, Lymphocytes (%) (Auto) 10.1L, Monocytes (%) (Auto) 10.1H, Eosinophils (%) (Auto) 0.2, Basophils (%) (Auto) 0.4, Neutrophils # (Auto) 10.3H, Lymphocytes # (Auto) 1.3L, Monocytes # (Auto) 1.3H, Eosinophils # (Auto) 0.0, Basophils # (Auto) 0.1, Nucleated Red Blood Cells % (auto) 0.0, Anion Gap 6L, Glomerular Filtration Rate > 60.0, Calcium Level 8.2L, Total Bilirubin 0.9#, Aspartate Amino Transf (AST/SGOT) 27, Alanine Aminotransferase (ALT/SGPT) 24, Alkaline Phosphatase 123H, C-Reactive Protein, Quantitative 14.00H, Total Protein 6.4, Albumin 1.9L, Albumin/Globulin Ratio 0.42L CBC/BMP Laboratory Tests 11/09/19 05:07 Microbiology Microbiology 11/04/19 Respiratory Virus Panel (PCR) (JOCELYN) - Final, Complete 11/04/19 Coronavirus COVID-19 PCR (JOCELYN), Received Pending 11/03/19 Blood Culture - Final, Complete NO GROWTH AFTER 5 DAYS 11/03/19 Blood Culture - Final, Complete NO GROWTH AFTER 5 DAYS 11/03/19 Respiratory Virus Panel (PCR) (JOCELYN) - Final, Complete LIZZY XIAO MD Nov 09, 2019 17:05
[2019-11-09] MEDS: SODIUM CHLORIDE 0.9% INJ 10 ML SYR IV PRN (17:40)
[2019-11-09 17:45] VITALS: BP 176/93
[2019-11-09] MEDS ORDERED: **hydrALAZINE** 10 MG TAB PO PRN (18:00)
[2019-11-09] MEDS: MAGNESIUM OXIDE 400 MG TAB (MAG-OX) PO SCH (20:57)
[2019-11-09 21:00] VITALS: BP 171/95
[2019-11-09 23:00] VITALS: BP 169/95
[2019-11-10] VITALS (8 sets, daily range): BP systolic 90–163; BP diastolic 59–99
[2019-11-10] MEDS ORDERED: METOPROLOL TART 25 MG TABLET PO ONE (00:45)
[2019-11-10] MEDS ORDERED: MORPHINE 4 MG/ML 1ML VIAL/SYRINGE (J2270) IV ONE (00:45)
[2019-11-10] MEDS: SODIUM CHLORIDE 0.9% INJ 10 ML SYR IV SCH ×2 (05:33→18:48)
[2019-11-10] MEDS: DICLOFENAC EPOLAMINE 1.3 % PATCH TOP SCH ×2 (05:33→18:48)
[2019-11-10 05:52] LABS: BASO % 0.2 % (0.0-1.0); EOS % 0.1 % (0.0-3.0); HEMOGLOBIN 8.8 g/dl (12.0-15.5); LYMPH # 1.2 10^3/uL (1.5-5.0); LYMPH % 5.9 % (24.0-44.0); MEAN CORPUSCULAR HEMOGLOBIN 29.5 pg (27.0-33.0); MEAN CORPUSCULAR HGB CONC 32.6 g/dl (32.0-36.5); MEAN CORPUSCULAR VOLUME 90.6 fl (80.0-96.0); MONO # 1.5 10^3/uL (0.0-0.8); MONO % 7.6 % (0.0-5.0); NEUTROPHILS # 16.7 10^3/uL (1.5-8.5); NEUTROPHILS % 85.3 % (36.0-66.0); PLATELET COUNT, AUTOMATED 271 10^3/uL (150-450); RED BLOOD COUNT 2.98 10^6/uL (4.00-5.40); WHITE BLOOD COUNT 19.5 10^3/uL (4.0-10.0)
[2019-11-10 06:42] LABS: ALT/SGPT 19 U/L (12-78); BLOOD UREA NITROGEN 11 MG/DL (7-18); CALCIUM LEVEL 8.2 MG/DL (8.8-10.2); CARBON DIOXIDE LEVEL 23 MEQ/L (21-32); CHLORIDE LEVEL 101 MEQ/L (98-107); CREATININE FOR GFR 0.39 MG/DL (0.55-1.30); GLOMERULAR FILTRATION RATE > 60.0 (>45); GLUCOSE, FASTING 119 MG/DL (70-100); LIPASE 48 U/L (73-393); POTASSIUM SERUM 3.7 MEQ/L (3.5-5.1); SODIUM LEVEL 135 MEQ/L (136-145)
[2019-11-10] MEDS: DOCUSATE SOD LIQ 100MG/10ML UDC PO SCH (09:40)
[2019-11-10] MEDS: ENOXAPARIN 40 MG/0.4 ML SYRINGE (J1650) SC SCH (09:40)
[2019-11-10] MEDS: PANTOPRAZOLE 40MG TAB (PROTONIX) PO SCH (09:41)
[2019-11-10] MEDS: ASPIRIN 81 MG CHEW TABLET PO SCH (09:41)
[2019-11-10] MEDS: GABAPENTIN 300 MG CAP PO SCH ×2 (09:41→16:02)
[2019-11-10] MEDS: ATORVASTATIN 20 MG TAB PO SCH (09:41)
[2019-11-10] MEDS: METOPROLOL TART 25 MG TABLET PO SCH ×2 (09:41→20:48)
[2019-11-10] MEDS: oxyCODONE 5MG TAB PO PRN (09:42)
[2019-11-10] MEDS: GASTROGRAFIN SOLUTION 30ML PO SCH ×2 (10:13→10:36)
[2019-11-10] MEDS ORDERED: ISOVUE-370 76% 100ML VIAL (Q9967) As Ordered ONE (10:54)
[2019-11-10] MEDS: ONDANSETRON 4MG/2ML VIAL (J2405) IV PRN (11:12)
--- NOTE | 2019-11-10 11:27 | IPNPDOC ---
Subjective Date Seen The patient was seen on 11/10/19. Subjective Chief Complaint/HPI c/o nausea and vomiting. RUQ abd pain unchanged. Objective Physical Examination General Exam: Positive: Alert (and oriented x 3), Cooperative, Mild Distress Eye Exam: Positive: Conjunctiva & lids normal; Negative: Sclera icteric ENT Exam: Positive: Mucous membr. moist/pink Neck Exam: Positive: Supple; Negative: Lymphadenopathy Chest Exam: Positive: Clear to auscultation, Diminished Heart Exam: Positive: Rate Normal, Regular Rhythm; Negative: Normal S1, Normal S2 Abdomen Exam: Positive: Normal bowel sounds, Soft (not distended), Tenderness (RUQ tenderness on palpation. No rebound tenderness noted.) Extremity Exam: Positive: Other (Stump is c/d/i); Negative: Edema Skin Exam: Negative: Rash Neuro Exam: Positive: Normal Speech Psych Exam: Positive: Mental status NL, Mood NL, Oriented x 3 Assessment /Plan Assessment # Fever of unknown origin # < 10 K Yeast in urine cx (10/21 + 10/25) unclear if this is of clinical significance - COVID 19 negative, isolation and droplet precautions discontinued - afebrile x 48 hours - WBC and CRP levels are higher today, will check CT abd/pelvis with contrast - procalcitonin is normal, so no signs of infection - ID following, notes reviewed # S/p right AKA # Chronic intestinal ischemia: 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 # Abdominal hematoma # Generalized deconditioning - awaiting SNF placement # Severe Protein Calorie Malnutrition due to acute illness - ensure supplements with meals - has been seen by dietary # Anemia due to acute illness - s/p 1 unit PRBCs this hospital stay - hgb counts stable # Sacral pressure sore, POA - local wound care Dispo: SNF Plan/VTE VTE Prophylaxis Ordered?: Yes (Lovenox) VS, I&O, 24H, Fishbone Vital Signs/I&O Vital Signs Date Time Temp Pulse Resp B/P (MAP) Pulse Ox O2 Delivery O2 Flow Rate FiO2 11/10/19 10:12 19 11/10/19 10:00 98.4 106 158/95 (116) 96 Room Air I&O- Last 24 Hours up to 6 AM 11/10/19 06:00 Intake Total 350 ml Output Total 900 ml Balance -550 ml Laboratory Data 24H LABS Laboratory Tests 2 11/10/19 05:38: Immature Granulocyte % (Auto) 0.9, Neutrophils (%) (Auto) 85.3H, Lymphocytes (%) (Auto) 5.9L, Monocytes (%) (Auto) 7.6H, Eosinophils (%) (Auto) 0.1, Basophils (%) (Auto) 0.2, Neutrophils # (Auto) 16.7H, Lymphocytes # (Auto) 1.2L, Monocytes # (Auto) 1.5H, Eosinophils # (Auto) 0.0, Basophils # (Auto) 0.0, Nucleated Red Blood Cells % (auto) 0.0, Anion Gap 11, Glomerular Filtration Rate > 60.0, Calcium Level 8.2L, Total Bilirubin 1.0, Aspartate Amino Transf (AST/SGOT) 20, Alanine Aminotransferase (ALT/SGPT) 19, Alkaline Phosphatase 133H, C-Reactive Protein, Quantitative 20.70H, Total Protein 7.0, Albumin 2.0L, Albumin/Globulin Ratio 0.40L, Lipase 48L CBC/BMP Laboratory Tests 11/10/19 05:38 Microbiology Microbiology 11/04/19 Respiratory Virus Panel (PCR) (JOCELYN) - Final, Complete 11/04/19 Coronavirus COVID-19 PCR (JOCELYN) - Final, Complete 11/03/19 Blood Culture - Final, Complete NO GROWTH AFTER 5 DAYS 11/03/19 Blood Culture - Final, Complete NO GROWTH AFTER 5 DAYS 11/03/19 Respiratory Virus Panel (PCR) (JOCELYN) - Final, Complete LIZZY XIAO MD Nov 10, 2019 11:27
[2019-11-10] MEDS: MORPHINE 4 MG/ML 1ML VIAL/SYRINGE (J2270) IV PRN ×2 (11:29→16:02)
[2019-11-10] MEDS ORDERED: PROMETHAZINE INJ 25 MG/ML VIAL (J2550) IV PRN (14:15)
[2019-11-10] MEDS ORDERED: PROTAMINE SULF INJ 50 MG/5 ML VIAL (J2720) IV STA (17:24)
--- NOTE | 2019-11-10 17:48 | IPN ---
DATE: 11/10/2019 Renu is not doing well today she has been vomiting, has severe epigastric pain radiating to right upper quadrant and the left upper quadrant at different times. She does not feel well. She is going for a stat CAT scan of the abdomen and pelvis. The patient states she is short of breath. Had worsened with an increase in white count and CRP. LABORATORY DATA: Done 11/10/2019: White count 19.5, hemoglobin 8.8, hematocrit 27 that dropped from 31, platelets 271, 85% neutrophils, 6% lymphocytes, 7% monocytes. Sodium 135, potassium 3.7, chloride 101, bicarbonate 31, BUN 11, creatinine 0.39, glucose 119, calcium 8.2. AST 20, ALT 19, alkaline phosphatase 133, CRP 20.7 increased from 3.2, lipase 48. COVID-19 was negative. Respiratory panel was negative. CT abdomen and pelvis reviewed with Dr. Tripp stat: Patient shows increased hematoma with active bleeding from the graft. This was relayed to Dr. Osiel Maynard, who will be seeing the patient and transferring to [place]. IMPRESSION Recurrent intra-abdominal bleeding from graft site, cause of worsening abdominal pain. PLAN: Transfer to [place] emergently.
[2019-11-10 18:04] LABS: HEMATOCRIT 24.9 % (36.0-47.0); HEMOGLOBIN 8.2 g/dl (12.0-15.5); MEAN CORPUSCULAR HEMOGLOBIN 29.8 pg (27.0-33.0); MEAN CORPUSCULAR HGB CONC 32.9 g/dl (32.0-36.5); MEAN CORPUSCULAR VOLUME 90.5 fl (80.0-96.0); PLATELET COUNT, AUTOMATED 270 10^3/uL (150-450); RED BLOOD COUNT 2.75 10^6/uL (4.00-5.40); WHITE BLOOD COUNT 13.6 10^3/uL (4.0-10.0)
[2019-11-10] MEDS ORDERED: NS 1,000 ML IV SCH (18:10)
[2019-11-10 18:15] LABS: INR 1.47; PROTHROMBIN TIME 17.6 SECONDS (11.8-14.0)
[2019-11-10 18:21] LABS: BLOOD UREA NITROGEN 15 MG/DL (7-18); CALCIUM LEVEL 8.1 MG/DL (8.8-10.2); CARBON DIOXIDE LEVEL 23 MEQ/L (21-32); CHLORIDE LEVEL 101 MEQ/L (98-107); CREATININE FOR GFR 0.38 MG/DL (0.55-1.30); GLOMERULAR FILTRATION RATE > 60.0 (>45); GLUCOSE, FASTING 132 MG/DL (70-100); POTASSIUM SERUM 3.7 MEQ/L (3.5-5.1); SODIUM LEVEL 132 MEQ/L (136-145)
--- NOTE | 2019-11-10 18:29 | REP ---
CT abdomen and pelvis with IV and oral contrast: History: Abdomen pain, nausea and vomiting. Leukocytosis. Comparison CT study is from November 04, 2019. CT contrast dose: 100 mL of intravenous Isovue [address] findings: Preliminary digital jumbo operator radiographs demonstrate distension of the stomach. There is a common bile duct stent in place. There is a small amount of left pleural fluid. This is actually somewhat improved from November 04, 2019. There is air and some fluid in the distal esophagus. The distal esophagus appears compressed at the gastroesophageal junction by the previously noted but now acutely enlarged upper retroperitoneal hematoma. There is active contrast extravasation into this enlarging hematoma from the region of the recent graft anastomosing the abdominal aorta to the celiac axis and superior mesenteric artery. The surrounding hematoma is enlarging. On November 03, at the level of the proximal end of the graft, the hematoma measured 5.6 cm in greatest AP dimension. Today, this measurement is 8.7 cm. It now measures 7.0 x 13.1 cm in transverse by craniocaudal dimension. On November 03 these analogous dimensions were 4.6 x 9.8 cm. There is no evidence of ascites or free intraperitoneal air. No evidence of obstruction. The common bile duct stent remains in good position. There is marked distension of the stomach. Impression: 1. Enlarging upper retroperitoneal hematoma surrounding the graft anastomoses with active extravasation seen into the hematoma. 2. Moderate to marked distension of the stomach. The distal esophagus is felt to be compressed and partially obstructed at the level of the hematoma. 3. Findings were telephoned to the referring provider at the time of the study and discussed with the infectious disease as400 consultant Dr. Prado as well. Electronically Signed by Everardo Tripp MD 11/11/2019 08:39 A
[2019-11-10] MEDS ORDERED: PROTAMINE SULF INJ 50 MG/5 ML VIAL (J2720) As Ordered ONE (19:23)
--- NOTE | 2019-11-10 21:18 | REPVR ---
PROCEDURE INFORMATION: Exam: XR Chest, 1 View Exam date and time: 11/10/2019 8:17 PM Age: 69 years old Clinical indication: Device placement; Other: Ngt placement TECHNIQUE: Imaging protocol: XR of the chest Views: 1 view. COMPARISON: CT PORTABLE CHEST X-RAY 10/22/2019 7:21 AM FINDINGS: Tubes, catheters and devices: Right PICC line in the upper SVC. Nasogastric tube extends into the stomach. Lungs: Mild linear atelectasis and scarring in the lungs. No infiltrates or masses. Pleural space: Unremarkable. No pleural effusion. No pneumothorax. Heart/Mediastinum: Unremarkable. No cardiomegaly. Bones/joints: Skeletal degenerative changes are noted. Other findings: Biliary-enteric stent is noted in the abdomen. IMPRESSION: 1. Right PICC line in the upper SVC. 2. Nasogastric tube extends into the stomach. 3. No acute findings. Electronically signed by: Abrahan Whittington On 11/10/2019 21:18:38 PM
--- NOTE | 2019-11-10 21:39 | DSES ---
DATE OF ADMISSION: 10/20/2019 DATE OF DISCHARGE: 11/10/2019 DISCHARGE DIAGNOSES: 1. Leaking arteriovascular Endograft. 2. Acute blood loss anemia with enlarging retroperitoneal hematoma. 3. Acute on chronic mesenteric ischemia, status post aortic to celiac and aortic to SMA branch bypass approximately 1-1/2 months ago. 4. Peripheral arterial disease status post right above the knee amputation. 5. Severe protein calorie malnutrition. 6. Sacral pressure sore present on admission. 7. Urinary tract infection (UTI) present on admission. 8. Severe protein calorie malnutrition. PROCEDURES PERFORMED DURING THIS HOSPITALIZATION: Peripherally inserted central catheter (PICC) line placement. CONSULTANTS ON THE CASE: Dr. Stein of general surgery. Dr. Prado of infectious disease. DISPOSITION: The patient is transferred to [facility]. CONDITION ON DISCHARGE: Stable for transport. REASON FOR TRANSFER: Leaking endovascular graft. RELEVANT LABORATORIES: COVID-19 PCR was negative. Respiratory viral panel was negative. Multiple blood cultures done during this hospitalization have shown no growth of any organisms. Urine culture grew yeast-like organisms, less than 4000 colony forming units. Multiple images were performed, including serial CT scans, please reference the individual reports for details. Of note, most recent CT of the abdomen and pelvis, which prompted the patient to be transferred, shows enlarging upper retroperitoneal hematoma surrounding graft anastomosis with active extravasation seen into the hematoma, moderate to marked distention of the stomach, the distal esophagus is felt to be compressed and partially obstructed at the level of the hematoma. Other studies that were obtained include a CT scan of the head, as well as chest CT and chest x-rays. Please reference individual reports for details. DISCHARGE MEDICATIONS: - Tylenol 650 mg every 4 hours as needed for pain - atorvastatin 12 mg daily - calcium carbonate 1000 mg twice a day as needed for gas pain - Flexeril 5 mg three times a day as needed for muscle spasm - Colace 100 mg daily - gabapentin 300 mg three times a day - magnesium oxide 400 mg at night - Megace 160 mg by mouth daily - metoprolol 25 mg by mouth twice a day - oxycodone 5 mg every 4 hours as needed for pain - Protonix 40 mg by mouth daily Medications that have been discontinued are aspirin secondary to acute bleed. HOSPITAL COURSE: Ms. Mendes is a 69-year-old woman who had previously been hospitalized at [facility] but subsequently developed worsening acute on chronic mesenteric ischemia, which prompted her to be transferred to [facility] in [place] where she had a prolonged hospital stay following surgery, which consisted of aortic celiac and aortic SMA bypass, placement of an AV mesenteric. This was complicated by hematoma, wound dehiscence, arterial occlusion of the right lower extremity, which ultimately led to a right above the knee amputation. She was subsequently transferred back to our hospital for further thrombolysis after her acute phase had been treated at [facility]. Since being here, the patient has had intermittent fevers, initially she had been transferred on oral Augmentin for a urinary tract infection (UTI). Repeat UA did not show any significant bacterial organisms. UA that was done in the hospital has only grown a few colony forming units of yeast. She was noted to have fevers. She was switched from Augmentin to ceftaroline, as well as Flagyl. During her stay, she continued to have intermittent bouts of leukocytosis and fevers with elevated CRP levels, which prompted her antibiotics to be changed to meropenem and fluconazole. She completed a 10 day course of this. Dr. Prado of infectious disease, as well as Dr. Stein were consulted during this hospital stay. There was concern whether she could have infected hematoma; however, this turned out to be not the case. Her fever subsequently subsided, as did her leukocytosis. I assumed care from Dr. Edwards yesterday and the day prior the patient had developed a fever, which prompted further workup. She was monitored off of antibiotics. This morning, the patient has been complaining of increasing abdominal pain with nausea and vomiting that was not controlled with Zofran or Phenergan. This prompted me to obtain a stat CT of her abdomen and pelvis, however, this was delayed due to her ingesting Gastrografin. The patient underwent the imaging study and, as mentioned above, showed that she had extravasation of blood from her graft. Her hemoglobin on recheck this afternoon is down from 8.2, it had been 9.8 two days prior. She has been consistently tachycardic and requiring oral metoprolol overnight. I did contact. Dr. Gaffney at [facility], he is the vascular surgeon who performed her operation while she was hospitalized. He has agreed to accept the patient. During her stay here, the patient, due to her continued fevers, had been tested for COVID-19; however, testing came back negative. I have been told by the nursing staff at this time that a nurse that had been caring for the patient recently as last night has recently tested positive for COVID-19. Therefore, they have maintained her on isolation and droplet precautions. The patient will be transferred by ambulance at this time. I have ordered 2 units of packed red blood cells to be administered to her. In addition, she had been receiving Lovenox, which had been started in the early course of her hospitalization at [facility], and I have given her intravenous protamine to reverse that. Repeat coagulations are stable, as is basic metabolic panel (BMP). A total of 30 minutes was spent completing all discharge paperwork and arranging transport. edited: 11/11/2019 0718 safia [email or web address]
== END 2019-11-10 21:19 | disposition short-term general hospital (02) | DRG 186 ==
LOC: M MSPAV 10-20 13:59
PROVIDERS: ADMIT Internal Medicine; ATTEND Internal Medicine
PROC: 30233N1 Transfusion of Nonautologous Red Blood Cells into Peripheral Vein, Percutaneous Approach (ICD-10-PCS; principal; 2019-10-25)
PROC: 02HV33Z Insertion of Infusion Device into Superior Vena Cava, Percutaneous Approach (ICD-10-PCS; 2019-10-27)
DX: J90 Pleural effusion, not elsewhere classified (principal); A41.9 Sepsis, unspecified organism; K55.059 Acute (reversible) ischemia of intestine, part and extent unspecified; E43 Unspecified severe protein-calorie malnutrition; K85.90 Acute pancreatitis without necrosis or infection, unspecified; T82.898A Other specified complication of vascular prosthetic devices, implants and grafts, initial encounter; K55.1 Chronic vascular disorders of intestine; N39.0 Urinary tract infection, site not specified; D62 Acute posthemorrhagic anemia; J98.11 Atelectasis; I97.638 Postprocedural hematoma of a circulatory system organ or structure following other circulatory system procedure; I73.9 Peripheral vascular disease, unspecified; Z86.718 Personal history of other venous thrombosis and embolism; F17.200 Nicotine dependence, unspecified, uncomplicated; I10 Essential (primary) hypertension; G89.29 Other chronic pain; R10.84 Generalized abdominal pain; Z95.828 Presence of other vascular implants and grafts; Z95.1 Presence of aortocoronary bypass graft; E78.5 Hyperlipidemia, unspecified; Z95.5 Presence of coronary angioplasty implant and graft; I25.10 Atherosclerotic heart disease of native coronary artery without angina pectoris; F32.5 Major depressive disorder, single episode, in full remission; L40.9 Psoriasis, unspecified; K76.0 Fatty (change of) liver, not elsewhere classified; M81.0 Age-related osteoporosis without current pathological fracture; Z96.652 Presence of left artificial knee joint; Z90.79 Acquired absence of other genital organ(s); Z90.49 Acquired absence of other specified parts of digestive tract; Z89.611 Acquired absence of right leg above knee; Z79.82 Long term (current) use of aspirin; Z79.891 Long term (current) use of opiate analgesic; Z79.899 Other long term (current) drug therapy; Z88.0 Allergy status to penicillin; Z88.1 Allergy status to other antibiotic agents; Z88.4 Allergy status to anesthetic agent; Z66 Do not resuscitate; R50.82 Postprocedural fever; L89.159 Pressure ulcer of sacral region, unspecified stage; D72.829 Elevated white blood cell count, unspecified; R11.10 Vomiting, unspecified